=== PATIENT | male | born 1965 | race American Indian/Alaskan Native ===

== ENCOUNTER 2016-06-08 17:15 | Emergency (ER) | payer MEDICAID ==
[2016-06-08] MEDS ORDERED: Furosemide 40 MG/4 ML VIAL IVPUSH ONE ×2 (17:22→18:35)
--- NOTE | 2016-06-08 17:36 | EDM.PDOC ---
<Bandar Daniel - Last Filed: 06/08/16 18:40> ED HPI GI/ABDOMINAL - General Chief Complaint: General Stated Complaint: AMB Time Seen by Provider: 06/08/16 17:36 Source of Information: Reports: Patient History Limitations: Reports: No limitations - History of Present Illness INITIAL COMMENTS - FREE TEXT/NARRATIVE: 51 yo [place] Male c/o abdomen pain for few days. No N&V. PSHx. Bowel as a child Symptom Onset Date: 06/04/16 Symptom Onset Time: 12:00 Timing/Duration: Reports: Day(s): Location: periumbilical Quality: Reports: cramping Severity: moderate Associated Symptoms: Reports: denies other symptoms - Related Data Allergies/ADRs: Allergies Allergy/AdvReac Type Severity Reaction Status Date / Time No Known Allergies Allergy Verified 06/08/16 17:37 Home Meds: Home Meds Lisinopril 40 mg PO DAILY 07/17/14 [History] Omeprazole [Prilosec] 20 mg PO DAILY 07/17/14 [History] Carvedilol [Coreg] 6.25 mg PO BIDMEALS 10/18/15 [History] Furosemide [Lasix] 80 mg PO DAILY 10/18/15 [History] Spironolactone [Aldactone] 25 mg PO DAILY 10/18/15 [History] Past Medical History Cardiovascular History: Reports: Cardiomyopathy, Heart Failure, Hypertension Respiratory History: Reports: SOB Gastrointestinal History: Reports: GERD Genitourinary History: Reports: Other (see below) Other Genitourinary History: liver issues r/t ETOH Musculoskeletal History: Reports: Other (see below) Other Musculoskeletal History: torn left and right upper arm tendon Psychiatric History: Reports: Anxiety - Past Surgical History GI Surgical History: Reports: Colon Other GI Surgeries/Procedures: Patient stated that he had surgery of the colon, removal of parts. Social & Family History - Family History Family Medical History: Noncontributory Cardiac: Reports: Hypertension Other Cardiac Family History: Dad and paternal grandmother have hypertension. Respiratory: Reports: Asthma Other Respiratory Family Hisory: Mom and dad have asthma. Endocrine/Metabolic: Reports: Diabetes, type I Other Endocrine/Metabolic Family History: Dad and paternal grandmother have type I diabetes. - Tobacco Use Smoking Status *Q: Current Every Day Smoker Years of Tobacco use: 8 Packs/Tins Daily: 0.5 Used Tobacco, but Quit: No Second Hand Smoke Exposure: Yes - Caffeine Use Caffeine Use: Reports: Coffee, Soda, Tea - Alcohol Use Days Per Week of Alcohol Use: 2 Number of Drinks Per Day: 10 Total Drinks Per Week: 20 - Recreational Drug Use Recreational Drug Use: Yes Drug Use in Last 12 Months: Yes Recreational Drug Type: Reports: Marijuana/Hashish Recreational Drug Use Frequency: Socially Recreational Drug Last Use: few weeks ago - Living Situation & Occupation Living situation: Reports: with family ED ROS GENERAL - Review of Systems Review Of Systems: See Below Constitutional: Reports: no symptoms HEENT: Reports: No symptoms Respiratory: Reports: No Symptoms Cardiovascular: Reports: No symptoms Endocrine: Reports: no symptoms GI/Abdominal: Reports: Abdominal pain : Reports: no symptoms Musculoskeletal: Reports: no symptoms Skin: Reports: no symptoms Neurological: Reports: No Symptoms Psychiatric: Reports: No symptoms Hematologic/Lymphatic: Reports: no symptoms Immunologic: Reports: no symptoms ED EXAM, GI/ABD - Physical Exam Exam: See Below Exam Limited By: No limitations General Appearance: alert, no apparent distress Ears: normal external exam Nose: normal inspection Throat/Mouth: Normal inspection Head: atraumatic Neck: normal inspection Respiratory/Chest: no respiratory distress Cardiovascular: normal peripheral pulses, regular rate, rhythm GI/Abdominal: normal bowel sounds, soft, tenderness Back Exam: normal inspection Extremities: normal inspection Neurological: alert, oriented, CN II-XII intact Psychiatric: normal affect Skin Exam: Warm Lymphatic: no adenopathy Course - Vital Signs Last Recorded V/S: Last Vital Signs Temp 36.4 C 06/08/16 17:15 Pulse 101 H 06/08/16 17:15 Resp 22 H 06/08/16 17:15 BP 126/99 H 06/08/16 17:15 Pulse Ox 100 06/08/16 17:15 - Orders/Labs/Meds Orders: Active Orders 24 hr Category Date Time Status EKG Documentation Completion [RC] URGENT Care 06/08/16 17:36 Active Labs: Laboratory Tests 06/08/16 06/08/16 06/08/16 Range/Units 17:28 17:28 17:28 WBC 9.1 (5.0-10.0) 10^3/uL RBC 4.42 L (4.6-6.2) 10^6/uL Hgb 13.0 L (14.0-18.0) g/dL Hct 39.5 L (40.0-54.0) % MCV 89.4 (80-100) fL MCH 29.4 (27.0-34.0) pg MCHC 32.9 L (33.0-35.0) g/dL Plt Count 282 (150-450) 10^3/uL Neut % (Auto) 68.0 (42.2-75.2) % Lymph % (Auto) 21.3 (20.5-50.1) % [place] % (Auto) 7.0 (2-8) % Eos % (Auto) 3.1 H (1.0-3.0) % Baso % (Auto) 0.6 (0.0-1.0) % D-Dimer, Quantitative 1250 H (0-400) ng/mL Sodium 142 (135-145) mmol/L Potassium 3.3 L (3.6-5.0) mmol/L Chloride 108 (101-111) mmol/L Carbon Dioxide 24.0 (21.0-31.0) mmol/L Anion Gap 13.3 BUN 12 (7-18) mg/dL Creatinine 0.8 (0.6-1.3) mg/dL Est Cr Clr Drug Dosing TNP Estimated GFR (MDRD) > 60 BUN/Creatinine Ratio 15.00 Glucose 102 (74-105) mg/dL Calcium 8.7 (8.4-10.2) mg/dl Total Bilirubin 2.5 H (0.2-1.0) mg/dL AST 26 (10-42) IU/L ALT 17 (10-60) IU/L Alkaline Phosphatase 72 (42-121) IU/L Troponin I 0.04 H* (0.00-0.02) ng/ml B-Natriuretic Peptide 2850 H (0-100) pg/ml Total Protein 6.8 (6.7-8.2) g/dl Albumin 3.6 (3.2-5.5) g/dl Globulin 3.2 Albumin/Globulin Ratio 1.13 Meds: Medications Discontinued Medications Generic Name Dose Route Start Last Admin Trade Name Freq PRN Reason Stop Dose Admin Enoxaparin Sodium 40 mg 06/08/16 19:31 Lovenox SUBCUT 06/08/16 19:32 ONETIME ONE Furosemide 10 mg 06/08/16 17:22 06/08/16 17:47 Lasix IVPUSH 06/08/16 17:23 10 mg NOW ONE Administration Furosemide Confirm 06/08/16 17:46 06/08/16 18:14 Lasix Administered 06/08/16 17:47 Not Given Dose 20 mg .ROUTE .STK-MED ONE Furosemide 20 mg 06/08/16 18:35 06/08/16 18:46 Lasix IVPUSH 06/08/16 18:36 20 mg NOW ONE Administration Hydromorphone HCl 1 mg 06/08/16 18:36 06/08/16 18:46 Dilaudid IM 06/08/16 18:37 1 mg ONETIME ONE Administration Iopamidol 100 ml 06/08/16 18:00 06/08/16 19:01 Isovue-300 (61%) IVPUSH 06/08/16 18:01 100 ml ONETIME ONE Administration Ondansetron HCl 4 mg 06/08/16 17:39 06/08/16 17:48 Zofran IV 06/08/16 17:40 4 mg ONETIME ONE Administration Ondansetron HCl Confirm 06/08/16 17:41 06/08/16 17:48 Zofran Administered 06/08/16 17:42 Not Given Dose 4 mg .ROUTE .STK-MED ONE Potassium Chloride 20 meq 06/08/16 18:35 06/08/16 18:46 Klor-Con 10 PO 06/08/16 18:36 20 meq ONETIME ONE Administration Departure - Departure Disposition: DC/Tfer to [facility] 02 Clinical Impression: Elevated d-dimer CHF (congestive heart failure) Qualifiers: Congestive heart failure type: unspecified congestive heart failure type Congestive heart failure chronicity: acute Qualified Code(s): I50.9 - Heart failure, unspecified Abdominal pain Qualifiers: Abdominal location: right upper quadrant Qualified Code(s): R10.11 - Right upper quadrant pain Forms: Interfacility Transfer EMTALA Care Plan Goals: Discussed history, examination, lab, CT results and treatments with Dr. Pepe ( Hospitalist with [facility] in [place]). Dr. Pepe accepted the patient for continued evaluation and further management. The patient will be transported by [facility]. <Kwame Self - Last Filed: 06/08/16 19:44> Course - Re-Assessments/Exams Free Text/Narrative Re-Assessment/Exam: 06/08/16 19:39 Patient care was taken over at shift change. The patient's abdominal CT with contrast was negative. The patient has an elevated D-dimer level. Arrangements were made to transfer the patient to [place] for a VQ scan. Departure - Departure Time of Disposition: 19:40 Condition: poor
[2016-06-08] MEDS ORDERED: Ondansetron 4 MG/2 ML SDV IV ONE (17:39)
[2016-06-08] MEDS ORDERED: Ondansetron 4 MG/2 ML SDV ONE (17:41)
[2016-06-08] MEDS ORDERED: Furosemide 20 MG/2 ML VIAL ONE (17:46)
[2016-06-08 17:58] LABS: CHLORIDE,CL 108 mmol/L (101-111); SODIUM,NA 142 mmol/L (135-145)
[2016-06-08] MEDS ORDERED: Iopamidol 612 MG/ML 100 ML Bottle IVPUSH ONE (18:00)
[2016-06-08 18:12] VITALS: BP 126/99
[2016-06-08] MEDS ORDERED: Potassium Chloride 10 MEQ Tab.ER PO ONE (18:35)
[2016-06-08] MEDS ORDERED: HYDROmorphone 1 MG/ML Syringe IM ONE (18:36)
[2016-06-08] MEDS ORDERED: Enoxaparin 40 MG/0.4 ML Syringe SUBCUT ONE (19:31)
--- NOTE | 2016-06-17 09:55 | EKG ---
06/08/2016 - MANNIE MEREDITH - EKG is sinus rhythm with a rate of 99. Normal DE interval. There is a left axis deviation. There are no signs of acute myocardial injury. [facility] /[id number]
== END 2016-06-08 20:02 ==
LOC: DL.ED 17:15
DX: R79.1 Abnormal coagulation profile (principal); I50.9 Heart failure, unspecified; R10.33 Periumbilical pain; I10 Essential (primary) hypertension; I42.9 Cardiomyopathy, unspecified; K21.9 Gastro-esophageal reflux disease without esophagitis; K70.9 Alcoholic liver disease, unspecified; F10.980 Alcohol use, unspecified with alcohol-induced anxiety disorder; F12.90 Cannabis use, unspecified, uncomplicated; Z79.899 Other long term (current) drug therapy
CPT/HCPCS: 36415; 71010; 74177; 80053; 83880; 84484; 85025; 85379; 93005; 96372; 96374; 96375; 99285; A9270; J1170; J1650; J1940; J2405; Q9967

== ENCOUNTER 2016-06-27 14:51 | Emergency (ER) | payer MEDICAID ==
[2016-06-27 15:11] VITALS: BP 114/90
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
--- NOTE | 2016-06-27 15:49 | CR ---
Clinical history: 51-year-old male left chest wall pain. 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 No sign of pathologic skeletal lesion, acute left rib fracture, underlying lung contusion, atelectas is, ipsilateral dependent pleural effusion or left-sided pneumothorax. CONCLUSION: Negative ribs on the left. 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
[2016-06-27] MEDS ORDERED: Morphine 4 MG/ML Syringe IM ONE (16:02)
== END 2016-06-27 16:39 | disposition home or self-care (01) ==
LOC: DL.ED 14:51
DX: S20.212A Contusion of left front wall of thorax, initial encounter (principal); I11.0 Hypertensive heart disease with heart failure; I50.9 Heart failure, unspecified; K21.9 Gastro-esophageal reflux disease without esophagitis; F41.9 Anxiety disorder, unspecified; F17.210 Nicotine dependence, cigarettes, uncomplicated; Z79.899 Other long term (current) drug therapy; W50.1XXA Accidental kick by another person, initial encounter; Y92.239 Unspecified place in hospital as the place of occurrence of the external cause
CPT/HCPCS: 71100; 96372; 99283; J2270

== ENCOUNTER 2016-06-29 08:31 | Emergency (ER) | payer MEDICAID ==
[2016-06-29] MEDS ORDERED: Ketorolac 30 MG/ML SDV IM ONE (08:46)
[2016-06-29] MEDS ORDERED: Promethazine 25 MG Tab PO ONE (08:47)
[2016-06-29] MEDS ORDERED: oxyCODONE 5 MG Tab PO ONE ×2 (08:48→08:57)
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
[2016-06-29 09:01] VITALS: BP 127/83
== END 2016-06-29 09:45 | disposition home or self-care (01) ==
LOC: DL.ED 08:31
DX: S20.212A Contusion of left front wall of thorax, initial encounter (principal); I11.0 Hypertensive heart disease with heart failure; I50.9 Heart failure, unspecified; K21.9 Gastro-esophageal reflux disease without esophagitis; F41.9 Anxiety disorder, unspecified; F17.210 Nicotine dependence, cigarettes, uncomplicated; Z79.899 Other long term (current) drug therapy; W50.1XXA Accidental kick by another person, initial encounter
CPT/HCPCS: 96372; 99283; A9270; J1885

== ENCOUNTER 2016-07-01 05:35 | Emergency (ER) | payer MEDICAID ==
[2016-07-01 05:47] VITALS: BP 120/84
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
[2016-07-01 06:20] LABS: CHLORIDE,CL 106 mmol/L (101-111); SODIUM,NA 141 mmol/L (135-145)
[2016-07-01] MEDS ORDERED: Ketorolac 30 MG/ML SDV IVPUSH ONE (06:21)
[2016-07-01] MEDS ORDERED: Ondansetron 4 MG/2 ML SDV IV ONE (06:23)
[2016-07-01] MEDS ORDERED: Morphine 2 MG/ML Syringe IVPUSH ONE (06:31)
--- NOTE | 2016-07-01 14:13 | EKG ---
07/01/2016 - MANNIE MEREDITH - Twelve-lead EKG shows sinus tachycardia with a heart rate of 105. No significant ST elevation or ST depression noted on this 12-lead EKG. Nonspecific ST-T wave changes noted on lead 2 and 3, and nonspecific ST-T wave changes noted on lead V2, V3. [facility] /[id number]
== END 2016-07-01 07:46 | disposition home or self-care (01) ==
LOC: DL.ED 05:35
DX: S20.212A Contusion of left front wall of thorax, initial encounter (principal); Y04.0XXA Assault by unarmed brawl or fight, initial encounter; I42.9 Cardiomyopathy, unspecified; I50.9 Heart failure, unspecified; I10 Essential (primary) hypertension; K21.9 Gastro-esophageal reflux disease without esophagitis; F41.9 Anxiety disorder, unspecified; F17.200 Nicotine dependence, unspecified, uncomplicated; Z79.899 Other long term (current) drug therapy
CPT/HCPCS: 36415; 71101; 80053; 80305; 81001; 83880; 84484; 85025; 93005; 96374; 96375; 99285; G0480; J2270; J2405

== ENCOUNTER 2016-07-16 08:59 | Emergency (ER) | payer MEDICAID ==
--- NOTE | 2016-07-16 09:00 | EDM.PDOC ---
ED HPI GENERAL MEDICAL PROBLEM - General Chief Complaint: Chest Pain Stated Complaint: IN BY [facility] Time Seen by Provider: 07/16/16 08:59 Source of Information: Reports: Patient, EMS, Old records, RN, RN notes reviewed History Limitations: Reports: No limitations - History of Present Illness INITIAL COMMENTS - FREE TEXT/NARRATIVE: Arrives from home by ambulance with c/o 2-3 days of worsening SOB, cough with clear-white sputum, nausea, and orthopnea. Pt admits to some constant chest pressure for several days.Pt denies fever, chills, abdominal pain. Pt has not been taking his medications this past week. He has been drinking and using methamphetamines, oxycodone, and marijuana. Onset: unknown/unsure Duration: Constant, Getting worse Location: Reports: chest Quality: Reports: Pressure Severity: moderate Improves with: Reports: None Worsens with: Reports: Other (supine position) Associated Symptoms: Reports: no other symptoms Left Chest Pain Score (Numeric/FACES): 7 - Related Data Allergies Allergy/AdvReac Type Severity Reaction Status Date / Time No Known Allergies Allergy Verified 07/16/16 09:07 Home Meds: Home Meds Lisinopril 40 mg PO DAILY 07/17/14 [History] Carvedilol [Coreg] 6.25 mg PO BIDMEALS 10/18/15 [History] Furosemide [Lasix] 80 mg PO DAILY 10/18/15 [History] Spironolactone [Aldactone] 25 mg PO DAILY 10/18/15 [History] Past Medical History HEENT History: Reports: None Cardiovascular History: Reports: Cardiomyopathy, Heart Failure, Hypertension Respiratory History: Reports: SOB Gastrointestinal History: Reports: GERD Genitourinary History: Reports: Other (see below) Other Genitourinary History: liver issues r/t ETOH Musculoskeletal History: Reports: Other (see below) Other Musculoskeletal History: torn left and right upper arm tendon Neurological History: Reports: None Psychiatric History: Reports: Anxiety Endocrine/Metabolic History: Reports: None Dermatologic History: Reports: None - Past Surgical History GI Surgical History: Reports: Colon Other GI Surgeries/Procedures: Patient stated that he had surgery of the colon, removal of parts. Social & Family History - Family History Family Medical History: Noncontributory Cardiac: Reports: Hypertension Other Cardiac Family History: Dad and paternal grandmother have hypertension. Respiratory: Reports: Asthma Other Respiratory Family Hisory: Mom and dad have asthma. Endocrine/Metabolic: Reports: Diabetes, type I Other Endocrine/Metabolic Family History: Dad and paternal grandmother have type I diabetes. - Tobacco Use Smoking Status *Q: Current Every Day Smoker Years of Tobacco use: 9 Packs/Tins Daily: 10 Used Tobacco, but Quit: No Second Hand Smoke Exposure: Yes - Caffeine Use Caffeine Use: Reports: Coffee, Soda, Tea - Alcohol Use Days Per Week of Alcohol Use: 2 Number of Drinks Per Day: 10 Total Drinks Per Week: 20 - Recreational Drug Use Recreational Drug Use: No Drug Use in Last 12 Months: Yes Recreational Drug Type: Reports: Marijuana/Hashish Recreational Drug Use Frequency: Socially Recreational Drug Last Use: few weeks ago - Living Situation & Occupation Living situation: Reports: with family ED ROS GENERAL - Review of Systems Review Of Systems: ROS reveals no pertinent complaints other than HPI. ED EXAM, GENERAL - Physical Exam Exam: See Below Exam Limited By: No limitations General Appearance: alert, WD/WN, no apparent distress, other (chronically ill appearing) Ears: hearing grossly normal Nose: normal inspection, normal mucosa, no blood Throat/Mouth: Normal lips, Normal oropharynx, Normal voice, No airway compromise Head: atraumatic, normocephalic Neck: normal inspection, supple, non-tender, full range of motion. No: lymphadenopathy (L), lymphadenopathy (R) Respiratory/Chest: no respiratory distress, no accessory muscle use, decreased breath sounds, crackles, rales Cardiovascular: regular rate, rhythm, no edema, tachycardia GI/Abdominal: Normal Bowel Sounds, Soft, Non-Tender, No Distention Back Exam: normal inspection Extremities: normal inspection, normal range of motion, non-tender, normal capillary refill, no pedal edema Neurological: alert, oriented, CN II-XII intact, normal cognition, normal gait, no motor/sensory deficits Psychiatric: normal affect, normal mood Skin Exam: Warm, Dry, Intact, Normal color, No rash EKG INTERPRETATION EKG Date: 07/16/16 Time: 09:06 Rhythm: other (SR) Rate (beats/min): 100 [place]: LAD-left axis deviation P-wave: present QRS: other (IVCD, anterior Q-waves) ST-T: other (nonspecific T-wave abnormalities in lat. leads) Comparison: no change Course - Vital Signs Last Recorded V/S: Last Vital Signs Temp 36.4 C 07/16/16 09:00 Pulse 101 H 07/16/16 09:00 Resp 18 07/16/16 09:00 BP 121/105 H 07/16/16 09:00 Pulse Ox 100 07/16/16 09:00 - Orders/Labs/Meds Orders: Active Orders 24 hr Category Date Time Status EKG 12 Lead [EKG Documentation Completion] [] STAT Care 07/16/16 09:00 Active Peripheral IV Care [] . DIRECTED Care 07/16/16 09:02 Active CULTURE BLOOD [BC] Stat Lab 07/16/16 09:10 Received CULTURE BLOOD [BC] Stat Lab 07/16/16 09:15 Received Sodium Chloride 0.9% [Saline Flush] Med 07/16/16 09:00 Active 10 ml FLUSH ASDIRECTED PRN Blood Culture x2 Reflex Set [OM.PC] Stat Ot 07/16/16 09:01 Ordered Peripheral IV Insertion Adult [OM.PC] Stat Ot 07/16/16 09:00 Ordered Medication Orders Sodium Chloride (Saline Flush) 10 ml FLUSH ASDIRECTED PRN PRN Reason: Keep Vein Open Last Admin: 07/16/16 09:52 Dose: 10 ml Admin: 07/16/16 09:18 Dose: 10 ml Labs: Laboratory Tests 07/16/16 07/16/16 07/16/16 Range/Units 09:10 09:10 09:10 WBC 6.9 (5.0-10.0) 10^3/uL RBC 4.51 L (4.6-6.2) 10^6/uL Hgb 13.7 L (14.0-18.0) g/dL Hct 41.2 (40.0-54.0) % MCV 91.4 (80-100) fL MCH 30.4 (27.0-34.0) pg MCHC 33.3 (33.0-35.0) g/dL Plt Count 235 (150-450) 10^3/uL Neut % (Auto) 75.4 H (42.2-75.2) % Lymph % (Auto) 15.9 L (20.5-50.1) % [place] % (Auto) 7.4 (2-8) % Eos % (Auto) 0.7 L (1.0-3.0) % Baso % (Auto) 0.6 (0.0-1.0) % Sodium 138 (135-145) mmol/L Potassium 3.6 (3.6-5.0) mmol/L Chloride 106 (101-111) mmol/L Carbon Dioxide 23.0 (21.0-31.0) mmol/L Anion Gap 12.6 BUN 6 L (7-18) mg/dL Creatinine 0.6 (0.6-1.3) mg/dL Est Cr Clr Drug Dosing TNP Estimated GFR (MDRD) > 60 BUN/Creatinine Ratio 10.00 Glucose 108 H (74-105) mg/dL Lactic Acid 2.3 H (0.5-2.2) mmol/L Calcium 8.7 (8.4-10.2) mg/dl Total Bilirubin 1.2 H (0.2-1.0) mg/dL AST 35 (10-42) IU/L ALT 19 (10-60) IU/L Alkaline Phosphatase 86 (42-121) IU/L Troponin I 0.05 H* (0.00-0.02) ng/ml B-Natriuretic Peptide 3330 H (0-100) pg/ml Total Protein 7.3 (6.7-8.2) g/dl Albumin 3.5 (3.2-5.5) g/dl Globulin 3.8 Albumin/Globulin Ratio 0.92 Amylase 33 (28-100) U/L Lipase 19 L (22-51) U/L Urine Color (YELLOW) Urine Appearance (CLEAR) Urine pH (5.0-9.0) Ur Specific [place] (1.005-1.030) Urine Protein (NEGATIVE) Urine Glucose (UA) (NEGATIVE) Urine Ketones (NEGATIVE) Urine Occult Blood (NEGATIVE) Urine Nitrite (NEGATIVE) Urine Bilirubin (NEGATIVE) Urine Urobilinogen (0.2-1.0) mg/dL Ur Leukocyte Esterase (NEGATIVE) Urine RBC /HPF Urine WBC (0-5/HPF) /HPF Ur Epithelial Cells /HPF Urine Mucus /LPF Urine Opiates Screen (NEGATIVE) Ur Oxycodone Screen (NEGATIVE) Urine Methadone Screen (NEGATIVE) Ur Barbiturates Screen (NEGATIVE) U Tricyclic Antidepress (NEGATIVE) Ur Phencyclidine Scrn (NEGATIVE) Ur Amphetamine Screen (NEGATIVE) U Methamphetamines Scrn (NEGATIVE) Urine MDMA Screen (NEGATIVE) U Benzodiazepines Scrn (NEGATIVE) Urine Cocaine Screen (NEGATIVE) U Marijuana (THC) Screen (NEGATIVE) Ethyl Alcohol 39 mg/dL 07/16/16 07/16/16 Range/Units 09:25 09:25 WBC (5.0-10.0) 10^3/uL RBC (4.6-6.2) 10^6/uL Hgb (14.0-18.0) g/dL Hct (40.0-54.0) % MCV (80-100) fL MCH (27.0-34.0) pg MCHC (33.0-35.0) g/dL Plt Count (150-450) 10^3/uL Neut % (Auto) (42.2-75.2) % Lymph % (Auto) (20.5-50.1) % [place] % (Auto) (2-8) % Eos % (Auto) (1.0-3.0) % Baso % (Auto) (0.0-1.0) % Sodium (135-145) mmol/L Potassium (3.6-5.0) mmol/L Chloride (101-111) mmol/L Carbon Dioxide (21.0-31.0) mmol/L Anion Gap BUN (7-18) mg/dL Creatinine (0.6-1.3) mg/dL Est Cr Clr Drug Dosing Estimated GFR (MDRD) BUN/Creatinine Ratio Glucose (74-105) mg/dL Lactic Acid (0.5-2.2) mmol/L Calcium (8.4-10.2) mg/dl Total Bilirubin (0.2-1.0) mg/dL AST (10-42) IU/L ALT (10-60) IU/L Alkaline Phosphatase (42-121) IU/L Troponin I (0.00-0.02) ng/ml B-Natriuretic Peptide (0-100) pg/ml Total Protein (6.7-8.2) g/dl Albumin (3.2-5.5) g/dl Globulin Albumin/Globulin Ratio Amylase (28-100) U/L Lipase (22-51) U/L Urine Color [place] (YELLOW) Urine Appearance Clear (CLEAR) Urine pH 6.0 (5.0-9.0) Ur Specific [place] 1.015 (1.005-1.030) Urine Protein 100 H (NEGATIVE) Urine Glucose (UA) Negative (NEGATIVE) Urine Ketones Negative (NEGATIVE) Urine Occult Blood Moderate H (NEGATIVE) Urine Nitrite Negative (NEGATIVE) Urine Bilirubin Negative (NEGATIVE) Urine Urobilinogen 1.0 (0.2-1.0) mg/dL Ur Leukocyte Esterase Negative (NEGATIVE) Urine RBC 0-5 /HPF Urine WBC Not seen (0-5/HPF) /HPF Ur Epithelial Cells Rare /HPF Urine Mucus Rare /LPF Urine Opiates Screen Negative (NEGATIVE) Ur Oxycodone Screen Positive H (NEGATIVE) Urine Methadone Screen Negative (NEGATIVE) Ur Barbiturates Screen Negative (NEGATIVE) U Tricyclic Antidepress Negative (NEGATIVE) Ur Phencyclidine Scrn Negative (NEGATIVE) Ur Amphetamine Screen Negative (NEGATIVE) U Methamphetamines Scrn Positive H (NEGATIVE) Urine MDMA Screen Negative (NEGATIVE) U Benzodiazepines Scrn Negative (NEGATIVE) Urine Cocaine Screen Negative (NEGATIVE) U Marijuana (THC) Screen Positive H (NEGATIVE) Ethyl Alcohol mg/dL Meds: Medications Generic Name Dose Route Start Last Admin Trade Name Freq PRN Reason Stop Dose Admin Sodium Chloride 10 ml 07/16/16 09:00 07/16/16 09:52 Saline Flush FLUSH 10 ml ASDIRECTED PRN Administration Keep Vein Open Discontinued Medications Generic Name Dose Route Start Last Admin Trade Name Freq PRN Reason Stop Dose Admin Furosemide 40 mg 07/16/16 09:45 07/16/16 09:52 Lasix IVPUSH 07/16/16 09:46 40 mg NOW ONE Administration Ondansetron HCl 4 mg 07/16/16 09:02 07/16/16 09:18 Zofran IV 07/16/16 09:03 4 mg ONETIME ONE Administration - Radiology Interpretation Free Text/Narrative:: CXR: abnormal but unchanged from prior studies, CHF, cardiomegaly per Rad. report. Departure - Departure Time of Disposition: 10:08 Disposition: DC/Tfer to Acute Hospital 02 Reason for Transfer *Q: Primary PCI Indicated Condition: serious Clinical Impression: Noncompliance with medication regimen, Methamphetamine abuse Acute exacerbation of congestive heart failure Qualifiers: Congestive heart failure type: unspecified congestive heart failure type Qualified Code(s): I50.9 - Heart failure, unspecified Polysubstance dependence including opioid type drug with complication, episodic abuse Qualifiers: Complication of substance-induced condition: with unspecified complication Qualified Code(s): F11.229 - Opioid dependence with intoxication, unspecified Forms: ED Department Discharge, Interfacility Transfer EMTALA - My Orders Last 24 Hours: My Active Orders 07/16/16 09:00 EKG 12 Lead [EKG Documentation Completion] [RC] STAT Sodium Chloride 0.9% [Saline Flush] 10 ml FLUSH ASDIRECTED PRN Peripheral IV Insertion Adult [OM.PC] Stat 07/16/16 09:01 Blood Culture x2 Reflex Set [OM.PC] Stat 07/16/16 09:02 Peripheral IV Care [RC] . DIRECTED 07/16/16 09:10 CULTURE BLOOD [BC] Stat 07/16/16 09:15 CULTURE BLOOD [BC] Stat - Assessment/Plan Last 24 Hours: My Active Orders 07/16/16 09:00 EKG 12 Lead [EKG Documentation Completion] [RC] STAT Sodium Chloride 0.9% [Saline Flush] 10 ml FLUSH ASDIRECTED PRN Peripheral IV Insertion Adult [OM.PC] Stat 07/16/16 09:01 Blood Culture x2 Reflex Set [OM.PC] Stat 07/16/16 09:02 Peripheral IV Care [RC] . DIRECTED 07/16/16 09:10 CULTURE BLOOD [BC] Stat 07/16/16 09:15 CULTURE BLOOD [BC] Stat
[2016-07-16] MEDS ORDERED: Ondansetron 4 MG/2 ML SDV IV ONE (09:02)
[2016-07-16] MEDS: Sodium Chloride 0.9% 10 ML Syringe FLUSH PRN ×2 (09:18→09:52)
[2016-07-16 09:43] LABS: CHLORIDE,CL 106 mmol/L (101-111); SODIUM,NA 138 mmol/L (135-145)
[2016-07-16] MEDS ORDERED: Furosemide 40 MG/4 ML VIAL IVPUSH ONE (09:45)
--- NOTE | 2016-07-16 09:58 | CR ---
CLINICAL HISTORY: 51-year-old male with chest pain, cough and vomiting. INTERPRETATION: PA lateral chest films abnormal. Chronically enlarged cardiac silhouette (Cardiomyopathy and/or pericardial effusion) with generalize d pulmonary venous congestion/cephalization. Partial silhouetting of the right heart border chronic and unchanged since 03 October 2015. No new signs of alveolar edema, dependent effusion, lung mass, focal lobar pneumonia or atelectasis/ collapse. No pneumothorax. CONCLUSION: Abnormal but generally unchanged except for technique when compared to September 2015 exam.
[2016-07-16 10:06] VITALS: BP 118/102
--- NOTE | 2016-07-21 12:06 | EKG ---
07/16/2016 MANNIE SHANKS I reviewed the EKG and agree with the machine reading. [facility] /[id number]
== END 2016-07-16 10:42 ==
LOC: DL.ED 08:59
DX: I11.0 Hypertensive heart disease with heart failure (principal); I50.9 Heart failure, unspecified; F11.229 Opioid dependence with intoxication, unspecified; K21.9 Gastro-esophageal reflux disease without esophagitis; F41.9 Anxiety disorder, unspecified; F17.210 Nicotine dependence, cigarettes, uncomplicated; Z79.899 Other long term (current) drug therapy
CPT/HCPCS: 36415; 71020; 80053; 80305; 81001; 82150; 83605; 83690; 83880; 84484; 85025; 87040; 93005; 96374; 96375; 99285; G0480; J1940; J2405; J7050

== ENCOUNTER 2016-07-29 08:19 | Emergency (ER) | payer MEDICAID ==
--- NOTE | 2016-07-29 08:35 | EDM.PDOC ---
ED HPI GENERAL MEDICAL PROBLEM - General Chief Complaint: Chest Pain Stated Complaint: IN BY AMBULANCE Time Seen by Provider: 07/29/16 08:25 Source of Information: Reports: Patient History Limitations: Reports: No Limitations - History of Present Illness INITIAL COMMENTS - FREE TEXT/NARRATIVE: This 51 yo male patient reports to the ED with chest pain (started this morning ) and shortness of breath (started 4 days ago). The patient currently reports his chest pain is a 5/10, but his shortness of breath is much worse. The patient reports he has not been drinking or doing any meth in the past week. The patient reports he has been attempting to follow-up with cardiology, but had an initial appointment last Thursday to arrange an appointment with a supervisor wet room. EMS had given the patient Aspirin and Nitro prior to the patient arrival in the ED. The patient was seen in this ED on 07/16/16 with similar symptoms. During that visit, the patient had an elevated Troponin level and was transferred to [place]. The patient has a history of CHF, hypertension, Meth use and ETOH use. 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, IV/IO, Nitroglycerin, Oxygen Chest Pain Score (Numeric/FACES): 5 - Related Data Allergies Allergy/AdvReac Type Severity Reaction Status Date / Time No Known Allergies Allergy Verified 07/29/16 08:23 Home Meds: Home Meds Lisinopril 40 mg PO DAILY 07/17/14 [History] Carvedilol [Coreg] 6.25 mg PO BIDMEALS 10/18/15 [History] Furosemide [Lasix] 80 mg PO DAILY 10/18/15 [History] Spironolactone [Aldactone] 25 mg PO DAILY 10/18/15 [History] Past Medical History HEENT History: Reports: None Cardiovascular History: Reports: Cardiomyopathy, Heart Failure, Hypertension Respiratory History: Reports: SOB Gastrointestinal History: Reports: GERD Genitourinary History: Reports: Other (See Below) Other Genitourinary History: liver issues r/t ETOH Musculoskeletal History: Reports: Other (See Below) Other Musculoskeletal History: torn left and right upper arm tendon Neurological History: Reports: None Psychiatric History: Reports: Anxiety Endocrine/Metabolic History: Reports: None Hematologic History: Reports: None Immunologic History: Reports: None Oncologic (Cancer) History: Reports: None Dermatologic History: Reports: None - Infectious Disease History Infectious Disease History: Reports: None - Past Surgical History Cardiovascular Surgical History: Reports: Percutaneous Transluminal Angioplasty Social & Family History - Family History Family Medical History: Noncontributory Cardiac: Reports: Hypertension Other Cardiac Family History: Dad and paternal grandmother have hypertension. Respiratory: Reports: Asthma Other Respiratory Family Hisory: Mom and dad have asthma. Endocrine/Metabolic: Reports: Diabetes, Type I Other Endocrine/Metabolic Family History: Dad and paternal grandmother have type I diabetes. - Tobacco Use Smoking Status *Q: Current Every Day Smoker Years of Tobacco use: 9 Packs/Tins Daily: 10 Used Tobacco, but Quit: No Second Hand Smoke Exposure: Yes - Caffeine Use Caffeine Use: Reports: Coffee, Soda, Tea - Alcohol Use Days Per Week of Alcohol Use: 2 Number of Drinks Per Day: 10 Total Drinks Per Week: 20 - Recreational Drug Use Recreational Drug Use: No Drug Use in Last 12 Months: Yes Recreational Drug Type: Reports: Marijuana/Hashish Recreational Drug Use Frequency: Socially Recreational Drug Last Use: few weeks ago - Living Situation & Occupation Living situation: Reports: with Family ED ROS GENERAL - Review of Systems Review Of Systems: ROS reveals no pertinent complaints other than HPI. ED EXAM, GENERAL - Physical Exam Exam: See Below Exam Limited By: No Limitations General Appearance: Alert, WD/WN, Mild Distress Eye Exam: Bilateral Eye: EOMI, Normal Inspection, PERRL Ears: Normal External Exam, Normal Canal, Hearing Grossly Normal, Normal TMs Nose: Normal Inspection, Normal Mucosa, No Blood Throat/Mouth: Normal Inspection, Normal Lips, Normal Teeth, Normal Gums, Normal Oropharynx, Normal Voice, No Airway Compromise Head: Atraumatic, Normocephalic Neck: Normal Inspection, Supple, Non-Tender, Full Range of Motion Respiratory/Chest: No Respiratory Distress, Lungs Clear, Normal Breath Sounds, No Accessory Muscle Use, Chest Non-Tender Cardiovascular: Normal Peripheral Pulses, Regular Rate, Rhythm, No Edema, No Gallop, No JVD, No Murmur, No Rub GI/Abdominal: Normal Bowel Sounds, Soft, Non-Tender, No Organomegaly, No Distention, No Abnormal Bruit, No Mass (Male) Exam: Deferred Rectal (Males) Exam: Deferred Back Exam: Normal Inspection, Full Range of Motion, NT Extremities: Normal Inspection, Normal Range of Motion, Non-Tender, Normal Capillary Refill, No Pedal Edema Neurological: Alert, Oriented, CN II-XII Intact, Normal Cognition, Normal Gait, Normal Reflexes, No Motor/Sensory Deficits Psychiatric: Normal Affect, Normal Mood Skin Exam: Warm, Dry, Intact, Normal Color, No Rash Lymphatic: No Adenopathy Course - Vital Signs Last Recorded V/S: Last Vital Signs Temp 37.1 C 07/29/16 11:00 Pulse 81 07/29/16 11:00 Resp 25 H 07/29/16 11:00 BP 103/71 07/29/16 11:00 Pulse Ox 100 07/29/16 11:00 - Orders/Labs/Meds Orders: Active Orders 24 hr Category Date Time Status EKG Documentation Completion [RC] ROUTINE Care 07/29/16 12:30 Active EKG Documentation Completion [RC] URGENT Care 07/29/16 08:15 Active Regular Diet [DIET] Diet 07/29/16 Breakfast Active Labs: Laboratory Tests 07/29/16 07/29/16 07/29/16 Range/Units 08:25 08:25 08:25 WBC 9.1 (5.0-10.0) 10^3/uL RBC 4.67 (4.6-6.2) 10^6/uL Hgb 13.9 L (14.0-18.0) g/dL Hct 43.7 (40.0-54.0) % MCV 93.6 (80-100) fL MCH 29.8 (27.0-34.0) pg MCHC 31.8 L (33.0-35.0) g/dL Plt Count 291 (150-450) 10^3/uL Neut % (Auto) 72.5 (42.2-75.2) % Lymph % (Auto) 14.5 L (20.5-50.1) % [place] % (Auto) 7.4 (2-8) % Eos % (Auto) 4.8 H (1.0-3.0) % Baso % (Auto) 0.8 (0.0-1.0) % Sodium 140 (135-145) mmol/L Potassium 4.6 (3.6-5.0) mmol/L Chloride 108 (101-111) mmol/L Carbon Dioxide 27.0 (21.0-31.0) mmol/L Anion Gap 9.6 BUN 22 H (7-18) mg/dL Creatinine 0.7 (0.6-1.3) mg/dL Est Cr Clr Drug Dosing 127.65 mL/min Estimated GFR (MDRD) > 60 BUN/Creatinine Ratio 31.42 Glucose 108 H (74-105) mg/dL Calcium 8.8 (8.4-10.2) mg/dl Total Bilirubin 0.7 (0.2-1.0) mg/dL AST 19 (10-42) IU/L ALT 13 (10-60) IU/L Alkaline Phosphatase 80 (42-121) IU/L Troponin I 0.03 H* (0.00-0.02) ng/ml B-Natriuretic Peptide 749 H (0-100) pg/ml Total Protein 7.2 (6.7-8.2) g/dl Albumin 3.4 (3.2-5.5) g/dl Globulin 3.8 Albumin/Globulin Ratio 0.89 Urine Color (YELLOW) Urine Appearance (CLEAR) Urine pH (5.0-9.0) Ur Specific [place] (1.005-1.030) Urine Protein (NEGATIVE) Urine Glucose (UA) (NEGATIVE) Urine Ketones (NEGATIVE) Urine Occult Blood (NEGATIVE) Urine Nitrite (NEGATIVE) Urine Bilirubin (NEGATIVE) Urine Urobilinogen (0.2-1.0) mg/dL Ur Leukocyte Esterase (NEGATIVE) Urine RBC /HPF Urine WBC (0-5/HPF) /HPF Urine Mucus /LPF Urine Opiates Screen (NEGATIVE) Ur Oxycodone Screen (NEGATIVE) Urine Methadone Screen (NEGATIVE) Ur Barbiturates Screen (NEGATIVE) U Tricyclic Antidepress (NEGATIVE) Ur Phencyclidine Scrn (NEGATIVE) Ur Amphetamine Screen (NEGATIVE) U Methamphetamines Scrn (NEGATIVE) Urine MDMA Screen (NEGATIVE) U Benzodiazepines Scrn (NEGATIVE) Urine Cocaine Screen (NEGATIVE) U Marijuana (THC) Screen (NEGATIVE) 07/29/16 07/29/16 07/29/16 Range/Units 08:37 08:37 12:20 WBC (5.0-10.0) 10^3/uL RBC (4.6-6.2) 10^6/uL Hgb (14.0-18.0) g/dL Hct (40.0-54.0) % MCV (80-100) fL MCH (27.0-34.0) pg MCHC (33.0-35.0) g/dL Plt Count (150-450) 10^3/uL Neut % (Auto) (42.2-75.2) % Lymph % (Auto) (20.5-50.1) % [place] % (Auto) (2-8) % Eos % (Auto) (1.0-3.0) % Baso % (Auto) (0.0-1.0) % Sodium (135-145) mmol/L Potassium (3.6-5.0) mmol/L Chloride (101-111) mmol/L Carbon Dioxide (21.0-31.0) mmol/L Anion Gap BUN (7-18) mg/dL Creatinine (0.6-1.3) mg/dL Est Cr Clr Drug Dosing mL/min Estimated GFR (MDRD) BUN/Creatinine Ratio Glucose (74-105) mg/dL Calcium (8.4-10.2) mg/dl Total Bilirubin (0.2-1.0) mg/dL AST (10-42) IU/L ALT (10-60) IU/L Alkaline Phosphatase (42-121) IU/L Troponin I 0.03 H* (0.00-0.02) ng/ml B-Natriuretic Peptide (0-100) pg/ml Total Protein (6.7-8.2) g/dl Albumin (3.2-5.5) g/dl Globulin Albumin/Globulin Ratio Urine Color Yellow (YELLOW) Urine Appearance Slightly cloudy (CLEAR) Urine pH 5.5 (5.0-9.0) Ur Specific [place] 1.015 (1.005-1.030) Urine Protein Negative (NEGATIVE) Urine Glucose (UA) Negative (NEGATIVE) Urine Ketones Negative (NEGATIVE) Urine Occult Blood Trace-lysed H (NEGATIVE) Urine Nitrite Negative (NEGATIVE) Urine Bilirubin Negative (NEGATIVE) Urine Urobilinogen 0.2 (0.2-1.0) mg/dL Ur Leukocyte Esterase Negative (NEGATIVE) Urine RBC 0-5 /HPF Urine WBC 0-5 (0-5/HPF) /HPF Urine Mucus Few H /LPF Urine Opiates Screen Negative (NEGATIVE) Ur Oxycodone Screen Positive H (NEGATIVE) Urine Methadone Screen Negative (NEGATIVE) Ur Barbiturates Screen Negative (NEGATIVE) U Tricyclic Antidepress Negative (NEGATIVE) Ur Phencyclidine Scrn Negative (NEGATIVE) Ur Amphetamine Screen Negative (NEGATIVE) U Methamphetamines Scrn Negative (NEGATIVE) Urine MDMA Screen Negative (NEGATIVE) U Benzodiazepines Scrn Negative (NEGATIVE) Urine Cocaine Screen Negative (NEGATIVE) U Marijuana (THC) Screen Negative (NEGATIVE) Meds: Medications Discontinued Medications Generic Name Dose Route Start Last Admin Trade Name Walter PRN Reason Stop Dose Admin Furosemide 20 mg 07/29/16 09:01 07/29/16 09:05 Lasix IVPUSH 07/29/16 09:02 20 mg ONETIME ONE Administration - Re-Assessments/Exams Free Text/Narrative Re-Assessment/Exam: 07/29/16 09:57 The patient was advised of the initial lab, EKG and x-ray results. The patient was placed on extended ED stay for a repeat Troponin and EKG scheduled at 1225. 07/29/16 13:05 The patient asked for pain medications for his sore left shoulder and something to help him relax. The patient was advised to visit his primary care facility for any additional medications. Departure - Departure Time of Disposition: 13:02 Disposition: Home, Self-Care 01 Condition: fair Clinical Impression: Non-cardiac chest pain, Shortness of breath CHF (congestive heart failure) Qualifiers: Congestive heart failure type: unspecified congestive heart failure type Congestive heart failure chronicity: acute Qualified Code(s): I50.9 - Heart failure, unspecified Instructions: Nonspecific Chest Pain, [id number], Heart Failure, [id number] , Shortness of Breath, [id number] Forms: ED Department Discharge Care Plan Goals: The patient was advised of the examination, lab, EKG, x-ray, repeat lab and repeat EKG results during the visit. The patient was encouraged to continue to take his medications as directed. If the patient has any additional symptoms or concerns, the patient should follow-up with his primary care provider or return to the emergency department. - My Orders Last 24 Hours: My Active Orders 07/29/16 08:15 EKG Documentation Completion [RC] URGENT 07/29/16 12:30 EKG Documentation Completion [RC] ROUTINE 07/29/16 Breakfast Regular Diet [DIET] - Assessment/Plan Last 24 Hours: My Active Orders 07/29/16 08:15 EKG Documentation Completion [RC] URGENT 07/29/16 12:30 EKG Documentation Completion [RC] ROUTINE 07/29/16 Breakfast Regular Diet [DIET]
[2016-07-29 08:50] LABS: CHLORIDE,CL 108 mmol/L (101-111); SODIUM,NA 140 mmol/L (135-145)
[2016-07-29] MEDS ORDERED: Furosemide 20 MG/2 ML VIAL IVPUSH ONE (09:01)
--- NOTE | 2016-07-29 10:49 | CR ---
CLINICAL HISTORY: A 51-year-old male with chest pain. INTERPRETATION: Chronically enlarged cardiac silhouette consistent with cardiomyopathy or pericardia l effusion unchanged since 16 Jul 2016 exam. Pulmonary vascularity today less congested (normal) and no new signs of alveolar edema or dependent effusion. Some old middle lobe atelectasis or fibrosis partially silhouetting the right heart border. No new l estrada mass, hilar lymphadenopathy or focal lobar pneumonia. No atelectasis/collapse. No pneumothorax.
[2016-07-29 11:35] VITALS: BP 103/71
--- NOTE | 2016-07-30 11:07 | EKG ---
07/29/2016 - MANNIE MEREDITH - A 12-lead EKG shows normal sinus rhythm with heart rate of 86. Nonspecific ST-T wave changes noted on lead aVL and also on lead 2. No significant ST elevation or ST depression noted on this 12-lead EKG. Possible left bundle branch block and left atrial enlargement noted. [facility] /[id number]
--- NOTE | 2016-07-30 13:14 | EKG ---
07/29/2016- MANNIE MEREDITH - TIME: 12:16. A 12-lead EKG shows normal sinus rhythm with heart rate of 88. No significant ST elevation or ST depression noted on this 12-lead EKG. Again, nonspecific ST- T wave changes noted on lead V4, V5. [facility] /[id number]
== END 2016-07-29 13:00 | disposition home or self-care (01) ==
LOC: DL.ED 08:19
DX: I11.0 Hypertensive heart disease with heart failure (principal); I50.9 Heart failure, unspecified; K21.9 Gastro-esophageal reflux disease without esophagitis; F41.9 Anxiety disorder, unspecified; F17.210 Nicotine dependence, cigarettes, uncomplicated; Z79.899 Other long term (current) drug therapy; Z98.84 Bariatric surgery status; Z90.49 Acquired absence of other specified parts of digestive tract
CPT/HCPCS: 36415; 71010; 80053; 80305; 81001; 83880; 84484; 85025; 93005; 96374; 99285; J1940

== ENCOUNTER 2016-08-14 09:02 | Emergency (ER) | payer MEDICAID ==
[2016-08-14] MEDS ORDERED: Sodium Chloride 0.9% 10 ML Syringe FLUSH PRN (09:13)
--- NOTE | 2016-08-14 09:13 | EDM.PDOC ---
ED HPI GENERAL MEDICAL PROBLEM - General Chief Complaint: Chest Pain Stated Complaint: IN BY AMBULANCE Time Seen by Provider: 08/14/16 09:12 Source of Information: Reports: Patient, EMS, Old Records, RN, RN Notes Reviewed History Limitations: Reports: No Limitations - History of Present Illness INITIAL COMMENTS - FREE TEXT/NARRATIVE: Arrives from home by [facility] with c/o "woke with chest pain, nausea, and vomiting" . Pt states he has been drinking beer and a pint of whiskey yesterday, and has been smoking marijuana and methamphetamine over the past 3 days. He could not take any aspirin this morning because of the vomiting. Denies radiating pain or shortness of breath. Old records reveal pt had an ECHO on 07/16/16 with an EF of 24.1%. Onset: Today Duration: Constant Location: Reports: Chest, Abdomen (epigastric) Quality: Reports: Ache, Burning Severity: Moderate Improves with: Reports: None Worsens with: Reports: None Associated Symptoms: Reports: No Other Symptoms Left Chest Pain Score (Numeric/FACES): 7 - Related Data Allergies Allergy/AdvReac Type Severity Reaction Status Date / Time No Known Allergies Allergy Verified 08/14/16 09:02 Home Meds: Home Meds Lisinopril 40 mg PO DAILY 07/17/14 [History] Carvedilol [Coreg] 6.25 mg PO BIDMEALS 10/18/15 [History] Furosemide [Lasix] 80 mg PO DAILY 10/18/15 [History] Spironolactone [Aldactone] 25 mg PO DAILY 10/18/15 [History] Past Medical History HEENT History: Reports: None Cardiovascular History: Reports: Cardiomyopathy, Heart Failure, Hypertension Respiratory History: Reports: SOB Gastrointestinal History: Reports: GERD Genitourinary History: Reports: Other (See Below) Other Genitourinary History: liver issues r/t ETOH Musculoskeletal History: Reports: Other (See Below) Other Musculoskeletal History: torn left and right upper arm tendon Neurological History: Reports: None Psychiatric History: Reports: Anxiety Endocrine/Metabolic History: Reports: None Hematologic History: Reports: None Immunologic History: Reports: None Oncologic (Cancer) History: Reports: None Dermatologic History: Reports: None - Infectious Disease History Infectious Disease History: Reports: None - Past Surgical History Cardiovascular Surgical History: Reports: Percutaneous Transluminal Angioplasty Social & Family History - Family History Family Medical History: Noncontributory Cardiac: Reports: Hypertension Other Cardiac Family History: Dad and paternal grandmother have hypertension. Respiratory: Reports: Asthma Other Respiratory Family Hisory: Mom and dad have asthma. Endocrine/Metabolic: Reports: Diabetes, Type I Other Endocrine/Metabolic Family History: Dad and paternal grandmother have type I diabetes. - Tobacco Use Smoking Status *Q: Current Every Day Smoker Years of Tobacco use: 10 Packs/Tins Daily: 0.5 Used Tobacco, but Quit: No Second Hand Smoke Exposure: Yes - Caffeine Use Caffeine Use: Reports: Coffee, Soda, Tea - Alcohol Use Alcohol Use History: Yes Days Per Week of Alcohol Use: 3 Number of Drinks Per Day: 12 Total Drinks Per Week: 36 Alcohol Use Frequency: Binges - Recreational Drug Use Recreational Drug Use: Yes Drug Use in Last 12 Months: Yes Recreational Drug Type: Reports: Methamphetamine, Oxycodone Recreational Drug Use Frequency: Binges Recreational Drug Last Use: yesterday Recreational Drug Route: Reports: Inhaled - Living Situation & Occupation Living situation: Reports: with Family ED ROS GENERAL - Review of Systems Review Of Systems: ROS reveals no pertinent complaints other than HPI. ED EXAM, GENERAL - Physical Exam Exam: See Below Exam Limited By: No Limitations General Appearance: Alert, WD/WN, No Apparent Distress Eye Exam: Bilateral Eye: Normal Inspection Ears: Normal External Exam Nose: Normal Inspection, Normal Mucosa, No Blood Throat/Mouth: Normal Inspection, Normal Lips, Normal Oropharynx, Normal Voice, No Airway Compromise Head: Atraumatic, Normocephalic Neck: Normal Inspection, Supple, Non-Tender, Full Range of Motion. No: Lymphadenopathy (L), Lymphadenopathy (R) Respiratory/Chest: No Respiratory Distress, Lungs Clear, Normal Breath Sounds, No Accessory Muscle Use, Chest Non-Tender Cardiovascular: Normal Peripheral Pulses, Regular Rate, Rhythm, No Edema, No Gallop, No JVD, No Murmur, No Rub GI/Abdominal: Normal Bowel Sounds, Soft, No Distention, No Abnormal Bruit, Pelvis Stable, Tender (epigastric). No: Guarding, Rigid, Rebound (Male) Exam: Deferred Rectal (Males) Exam: Deferred Back Exam: Normal Inspection, Full Range of Motion. No: CVA Tenderness (L), CVA Tenderness (R) Extremities: Normal Inspection, Normal Range of Motion, Non-Tender, Normal Capillary Refill, No Pedal Edema Neurological: Alert, Oriented, CN II-XII Intact, Normal Cognition, Normal Reflexes, No Motor/Sensory Deficits Psychiatric: Normal Affect, Normal Mood Skin Exam: Warm, Dry, Intact, Normal Color, No Rash EKG INTERPRETATION EKG Date: 08/14/16 Time: 09:14 Rhythm: other (SR) Rate (beats/min): 98 [place]: normal P-wave: present QRS: LBBB (chronic, Left atrial enlargement) ST-T: normal QT: normal Comparison: no change EKG Interpretation Comments: No acute ischemic changes. Course - Vital Signs Last Recorded V/S: Last Vital Signs Temp 36.1 C 08/14/16 09:05 Pulse 94 08/14/16 10:10 Resp 16 08/14/16 10:10 BP 131/94 H 08/14/16 10:10 Pulse Ox 97 08/14/16 10:10 - Orders/Labs/Meds Orders: Active Orders 24 hr Category Date Time Status EKG 12 Lead [EKG Documentation Completion] [] STAT Care 08/14/16 09:13 Active Peripheral IV Care [RC] . DIRECTED Care 08/14/16 09:13 Active Sodium Chloride 0.9% [Saline Flush] Med 08/14/16 09:13 Active 10 ml FLUSH ASDIRECTED PRN Peripheral IV Insertion Adult [OM.PC] Stat Oth 08/14/16 09:13 Ordered Medication Orders Sodium Chloride (Saline Flush) 10 ml FLUSH ASDIRECTED PRN PRN Reason: Keep Vein Open Last Admin: 08/14/16 09:25 Dose: 10 ml Labs: Laboratory Tests 08/14/16 08/14/16 08/14/16 Range/Units 09:20 09:20 09:20 WBC 6.2 (5.0-10.0) 10^3/uL RBC 4.70 (4.6-6.2) 10^6/uL Hgb 14.1 (14.0-18.0) g/dL Hct 42.6 (40.0-54.0) % MCV 90.6 (80-100) fL MCH 30.0 (27.0-34.0) pg MCHC 33.1 (33.0-35.0) g/dL Plt Count 257 (150-450) 10^3/uL Neut % (Auto) 69.7 (42.2-75.2) % Lymph % (Auto) 19.6 L (20.5-50.1) % [place] % (Auto) 6.4 (2-8) % Eos % (Auto) 3.7 H (1.0-3.0) % Baso % (Auto) 0.6 (0.0-1.0) % Sodium 140 (135-145) mmol/L Potassium 3.5 L (3.6-5.0) mmol/L Chloride 107 (101-111) mmol/L Carbon Dioxide 23.0 (21.0-31.0) mmol/L Anion Gap 13.5 BUN 5 L (7-18) mg/dL Creatinine 0.6 (0.6-1.3) mg/dL Est Cr Clr Drug Dosing TNP Estimated GFR (MDRD) > 60 BUN/Creatinine Ratio 8.33 Glucose 110 H (74-105) mg/dL Calcium 8.7 (8.4-10.2) mg/dl Total Bilirubin 1.2 H (0.2-1.0) mg/dL AST 27 (10-42) IU/L ALT 13 (10-60) IU/L Alkaline Phosphatase 88 (42-121) IU/L Creatine Kinase 97 (26-174) IU/L Creatine Kinase Index 3.8 H (0-2.4) % CK-MB (CK-2) 3.70 (0.4-4.7) ng/mL Troponin I 0.04 H* (0.00-0.02) ng/ml B-Natriuretic Peptide 2510 H (0-100) pg/ml Total Protein 7.6 (6.7-8.2) g/dl Albumin 3.7 (3.2-5.5) g/dl Globulin 3.9 Albumin/Globulin Ratio 0.95 Amylase 32 (28-100) U/L Lipase 15 L (22-51) U/L Urine Color (YELLOW) Urine Appearance (CLEAR) Urine pH (5.0-9.0) Ur Specific [place] (1.005-1.030) Urine Protein (NEGATIVE) Urine Glucose (UA) (NEGATIVE) Urine Ketones (NEGATIVE) Urine Occult Blood (NEGATIVE) Urine Nitrite (NEGATIVE) Urine Bilirubin (NEGATIVE) Urine Urobilinogen (0.2-1.0) mg/dL Ur Leukocyte Esterase (NEGATIVE) Urine RBC /HPF Urine WBC (0-5/HPF) /HPF Ur Epithelial Cells /HPF Urine Bacteria (0-FEW/HPF) /HPF Urine Mucus /LPF Urine Opiates Screen (NEGATIVE) Ur Oxycodone Screen (NEGATIVE) Urine Methadone Screen (NEGATIVE) Ur Barbiturates Screen (NEGATIVE) U Tricyclic Antidepress (NEGATIVE) Ur Phencyclidine Scrn (NEGATIVE) Ur Amphetamine Screen (NEGATIVE) U Methamphetamines Scrn (NEGATIVE) Urine MDMA Screen (NEGATIVE) U Benzodiazepines Scrn (NEGATIVE) Urine Cocaine Screen (NEGATIVE) U Marijuana (THC) Screen (NEGATIVE) Ethyl Alcohol 39 mg/dL 08/14/16 08/14/16 Range/Units 09:32 09:32 WBC (5.0-10.0) 10^3/uL RBC (4.6-6.2) 10^6/uL Hgb (14.0-18.0) g/dL Hct (40.0-54.0) % MCV (80-100) fL MCH (27.0-34.0) pg MCHC (33.0-35.0) g/dL Plt Count (150-450) 10^3/uL Neut % (Auto) (42.2-75.2) % Lymph % (Auto) (20.5-50.1) % [place] % (Auto) (2-8) % Eos % (Auto) (1.0-3.0) % Baso % (Auto) (0.0-1.0) % Sodium (135-145) mmol/L Potassium (3.6-5.0) mmol/L Chloride (101-111) mmol/L Carbon Dioxide (21.0-31.0) mmol/L Anion Gap BUN (7-18) mg/dL Creatinine (0.6-1.3) mg/dL Est Cr Clr Drug Dosing Estimated GFR (MDRD) BUN/Creatinine Ratio Glucose (74-105) mg/dL Calcium (8.4-10.2) mg/dl Total Bilirubin (0.2-1.0) mg/dL AST (10-42) IU/L ALT (10-60) IU/L Alkaline Phosphatase (42-121) IU/L Creatine Kinase (26-174) IU/L Creatine Kinase Index (0-2.4) % CK-MB (CK-2) (0.4-4.7) ng/mL Troponin I (0.00-0.02) ng/ml B-Natriuretic Peptide (0-100) pg/ml Total Protein (6.7-8.2) g/dl Albumin (3.2-5.5) g/dl Globulin Albumin/Globulin Ratio Amylase (28-100) U/L Lipase (22-51) U/L Urine Color Dark yellow (YELLOW) Urine Appearance Clear (CLEAR) Urine pH 6.0 (5.0-9.0) Ur Specific [place] 1.015 (1.005-1.030) Urine Protein 100 H (NEGATIVE) Urine Glucose (UA) Negative (NEGATIVE) Urine Ketones Negative (NEGATIVE) Urine Occult Blood Small H (NEGATIVE) Urine Nitrite Negative (NEGATIVE) Urine Bilirubin Negative (NEGATIVE) Urine Urobilinogen 1.0 (0.2-1.0) mg/dL Ur Leukocyte Esterase Negative (NEGATIVE) Urine RBC 5-10 H /HPF Urine WBC 0-5 (0-5/HPF) /HPF Ur Epithelial Cells Rare /HPF Urine Bacteria Occasional (0-FEW/HPF) /HPF Urine Mucus Few H /LPF Urine Opiates Screen Negative (NEGATIVE) Ur Oxycodone Screen Positive H (NEGATIVE) Urine Methadone Screen Negative (NEGATIVE) Ur Barbiturates Screen Negative (NEGATIVE) U Tricyclic Antidepress Negative (NEGATIVE) Ur Phencyclidine Scrn Negative (NEGATIVE) Ur Amphetamine Screen Negative (NEGATIVE) U Methamphetamines Scrn Positive H (NEGATIVE) Urine MDMA Screen Negative (NEGATIVE) U Benzodiazepines Scrn Negative (NEGATIVE) Urine Cocaine Screen Negative (NEGATIVE) U Marijuana (THC) Screen Positive H (NEGATIVE) Ethyl Alcohol mg/dL Meds: Medications Generic Name Dose Route Start Last Admin Trade Name Freq PRN Reason Stop Dose Admin Sodium Chloride 10 ml 08/14/16 09:13 08/14/16 09:25 Saline Flush FLUSH 10 ml ASDIRECTED PRN Administration Keep Vein Open Discontinued Medications Generic Name Dose Route Start Last Admin Trade Name Freq PRN Reason Stop Dose Admin Aspirin 324 mg 08/14/16 10:20 Aspirin PO 08/14/16 10:21 ONETIME ONE Furosemide 40 mg 08/14/16 10:15 08/14/16 10:21 Lasix IVPUSH 06/08/17 10:16 40 mg NOW ONE Administration Heparin Sodium (Porcine) 5,000 units 08/14/16 10:15 Heparin Sodium IVPUSH 08/14/16 10:16 ONETIME ONE Morphine Sulfate 2 mg 08/14/16 09:39 08/14/16 09:52 Morphine IVPUSH 08/14/16 09:40 2 mg ONETIME ONE Administration Ondansetron HCl 4 mg 08/14/16 09:15 08/14/16 09:25 Zofran IV 08/14/16 09:16 4 mg ONETIME ONE Administration Pantoprazole Sodium 40 mg 08/14/16 09:39 08/14/16 09:56 Protonix Iv IVPUSH 08/14/16 09:40 40 mg ONETIME ONE Administration - Radiology Interpretation Free Text/Narrative:: CXR: cardiomegaly, see Rad. report. Departure - Departure Time of Disposition: 10:23 Disposition: DC/Tfer to Acute Hospital 02 Reason for Transfer *Q: Primary PCI Indicated Condition: serious Clinical Impression: NSTEMI (non-ST elevated myocardial infarction), Chronic alcohol abuse, Polysubstance abuse Forms: ED Department Discharge, Interfacility Transfer EMTALA - My Orders Last 24 Hours: My Active Orders 08/14/16 09:13 EKG 12 Lead [EKG Documentation Completion] [RC] STAT Peripheral IV Care [RC] . DIRECTED Sodium Chloride 0.9% [Saline Flush] 10 ml FLUSH ASDIRECTED PRN Peripheral IV Insertion Adult [OM.PC] Stat - Assessment/Plan Last 24 Hours: My Active Orders 08/14/16 09:13 EKG 12 Lead [EKG Documentation Completion] [RC] STAT Peripheral IV Care [RC] . DIRECTED Sodium Chloride 0.9% [Saline Flush] 10 ml FLUSH ASDIRECTED PRN Peripheral IV Insertion Adult [OM.PC] Stat
[2016-08-14] MEDS ORDERED: Ondansetron 4 MG/2 ML SDV IV ONE (09:15)
[2016-08-14] MEDS ORDERED: Morphine 2 MG/ML Syringe IVPUSH ONE (09:39)
[2016-08-14] MEDS ORDERED: Pantoprazole 40 MG Vial IVPUSH ONE (09:39)
--- NOTE | 2016-08-14 09:45 | CR ---
Clinical history: 51-year-old male chest pain. Interpretation: Abnormal. Chronically enlarged cardiac silhouette (cardiomyopathy and/or pericardial effusion) with generalize d mild pulmonary venous ingestion and with trace of fluid in the minor fissure since 29 Jul 2016 exa m. No new signs of alveolar edema or dependent pleural fluid accumulation. No new lung mass, hilar lymphadenopathy or focal lobar pneumonia. No atelectasis/collapse. No pneumo thorax. CONCLUSION: Chronic cardiac abnormality with subtle increase venous congestion since 29 July exam.
[2016-08-14 10:01] LABS: CHLORIDE,CL 107 mmol/L (101-111); SODIUM,NA 140 mmol/L (135-145)
[2016-08-14] MEDS ORDERED: Furosemide 40 MG/4 ML VIAL IVPUSH ONE (10:15)
[2016-08-14] MEDS ORDERED: Heparin Sodium 5,000 Units/ML Vial IVPUSH ONE (10:15)
[2016-08-14] MEDS ORDERED: Aspirin 81 MG Tab.Chew PO ONE (10:20)
[2016-08-14 10:24] VITALS: BP 127/89
--- NOTE | 2016-08-15 14:51 | EKG ---
08/14/2016- MANNIE MEREDITH - EKG per my reading shows sinus rhythm with left bundle-branch block at the rate of 98. MOD /[id number]
== END 2016-08-14 11:12 ==
LOC: DL.ED 09:02
DX: I21.4 Non-ST elevation (NSTEMI) myocardial infarction (principal); F10.10 Alcohol abuse, uncomplicated; F19.10 Other psychoactive substance abuse, uncomplicated; F17.210 Nicotine dependence, cigarettes, uncomplicated; K21.9 Gastro-esophageal reflux disease without esophagitis; F41.9 Anxiety disorder, unspecified; Z79.899 Other long term (current) drug therapy
CPT/HCPCS: 36415; 71010; 80053; 80305; 81001; 82150; 82550; 82553; 83690; 83880; 84484; 85025; 93005; 96374; 96375; 99285; A9270; G0480; J1644; J1940; J2270; J2405; J7050; C9113

== ENCOUNTER 2016-08-21 14:14 | Emergency (ER) | payer MEDICAID ==
[2016-08-21 14:23] VITALS: BP 134/99
--- NOTE | 2016-08-21 14:31 | EDM.PDOC ---
ED HPI GENERAL MEDICAL PROBLEM - General Chief Complaint: Upper Extremity Injury/Pain Stated Complaint: IN BY AMBULANCE Time Seen by Provider: 08/21/16 14:15 Source of Information: Reports: Patient History Limitations: Reports: No Limitations - History of Present Illness INITIAL COMMENTS - FREE TEXT/NARRATIVE: This 51 yo male patient reports to the ED with pain in his left shoulder. The patient reports his pain started in his left shoulder 3 years ago, but got better for a while. Over the past 2 months, the patient reports increased pain in his shoulder. The patient was supposed to have an appointment in [place] today, but the [facility] did not come to pick him up today. The patient reports he has not been able to sleep in the past 3 night due to the pain in his shoulder. The patient reports he does not go to the [facility] because the providers change all the time. Onset: Gradual Duration: Constant, Getting Worse Location: Reports: Lower Extremity, Left (shoulder) Quality: Reports: Ache, Dull Severity: Moderate Improves with: Reports: None Worsens with: Reports: None Associated Symptoms: Reports: No Other Symptoms Treatments PICK REMOVER: Denies: Acetaminophen, NSAIDS Left Shoulder Pain Score (Numeric/FACES): 8 - Related Data Allergies Allergy/AdvReac Type Severity Reaction Status Date / Time No Known Allergies Allergy Verified 08/21/16 14:11 Home Meds: Home Meds Lisinopril 20 mg PO DAILY 07/17/14 [History] Carvedilol [Coreg] 6.25 mg PO BIDMEALS 10/18/15 [History] Furosemide [Lasix] 40 mg PO DAILY 10/18/15 [History] Spironolactone [Aldactone] 25 mg PO DAILY 10/18/15 [History] Past Medical History HEENT History: Reports: None Cardiovascular History: Reports: Cardiomyopathy, Heart Failure, Hypertension Respiratory History: Reports: SOB Gastrointestinal History: Reports: GERD Genitourinary History: Reports: Other (See Below) Other Genitourinary History: liver issues r/t ETOH Musculoskeletal History: Reports: Other (See Below) Other Musculoskeletal History: torn left and right upper arm tendon Neurological History: Reports: None Psychiatric History: Reports: Anxiety Endocrine/Metabolic History: Reports: None Hematologic History: Reports: None Immunologic History: Reports: None Oncologic (Cancer) History: Reports: None Dermatologic History: Reports: None - Infectious Disease History Infectious Disease History: Reports: None - Past Surgical History Cardiovascular Surgical History: Reports: Percutaneous Transluminal Angioplasty Social & Family History - Family History Family Medical History: Noncontributory Cardiac: Reports: Hypertension Other Cardiac Family History: Dad and paternal grandmother have hypertension. Respiratory: Reports: Asthma Other Respiratory Family Hisory: Mom and dad have asthma. Endocrine/Metabolic: Reports: Diabetes, Type I Other Endocrine/Metabolic Family History: Dad and paternal grandmother have type I diabetes. - Tobacco Use Smoking Status *Q: Current Every Day Smoker Years of Tobacco use: 10 Packs/Tins Daily: 0.5 Used Tobacco, but Quit: No Second Hand Smoke Exposure: Yes - Caffeine Use Caffeine Use: Reports: Coffee, Soda, Tea - Alcohol Use Days Per Week of Alcohol Use: 3 Number of Drinks Per Day: 12 Total Drinks Per Week: 36 - Recreational Drug Use Recreational Drug Use: Yes Drug Use in Last 12 Months: Yes Recreational Drug Type: Reports: Methamphetamine, Oxycodone Recreational Drug Use Frequency: Binges Recreational Drug Last Use: yesterday - Living Situation & Occupation Living situation: Reports: with Family Review of Systems - Review of Systems Review Of Systems: ROS reveals no pertinent complaints other than HPI. ED EXAM, GENERAL - Physical Exam Exam: See Below Exam Limited By: No Limitations General Appearance: Alert, WD/WN, Mild Distress Eye Exam: Bilateral Eye: EOMI, Normal Inspection, PERRL Ears: Normal External Exam, Normal Canal, Hearing Grossly Normal, Normal TMs Nose: Normal Inspection, Normal Mucosa, No Blood Throat/Mouth: Normal Inspection, Normal Lips, Normal Teeth, Normal Gums, Normal Oropharynx, Normal Voice, No Airway Compromise Head: Atraumatic, Normocephalic Neck: Normal Inspection, Supple, Non-Tender, Full Range of Motion Respiratory/Chest: No Respiratory Distress, Lungs Clear, Normal Breath Sounds, No Accessory Muscle Use, Chest Non-Tender Cardiovascular: Normal Peripheral Pulses, Regular Rate, Rhythm, No Edema, No Gallop, No JVD, No Murmur, No Rub GI/Abdominal: Normal Bowel Sounds, Soft, Non-Tender, No Organomegaly, No Distention, No Abnormal Bruit, No Mass (Male) Exam: Deferred Rectal (Males) Exam: Deferred Back Exam: Normal Inspection, Full Range of Motion, NT Extremities: Arm Pain (left shoulder pain with palpation. ), Other (The patient has some tenderness to the anterior shoulder. The patient has full range of motion, but reported some pain) Neurological: Alert, Oriented, CN II-XII Intact, Normal Cognition, Normal Gait, Normal Reflexes, No Motor/Sensory Deficits Psychiatric: Normal Affect, Normal Mood Skin Exam: Warm, Dry, Intact, Normal Color, No Rash Lymphatic: No Adenopathy Course - Vital Signs Last Recorded V/S: Last Vital Signs Temp 36.3 C 08/21/16 14:18 Pulse 99 08/21/16 14:18 Resp 20 08/21/16 14:18 BP 134/99 H 08/21/16 14:18 Pulse Ox 99 08/21/16 14:18 - Orders/Labs/Meds Meds: Medications Discontinued Medications Generic Name Dose Route Start Last Admin Trade Name Freq PRN Reason Stop Dose Admin Ketorolac Tromethamine 60 mg 08/21/16 15:03 Toradol IM 08/21/16 15:04 ONETIME ONE Departure - Departure Time of Disposition: 15:09 Disposition: Home, Self-Care 01 Condition: Fair Clinical Impression: Injury of left rotator cuff Qualifiers: Encounter type: initial encounter Qualified Code(s): S46.002A - Unspecified injury of muscle(s) and tendon(s) of the rotator cuff of left shoulder, initial encounter - Discharge Information Instructions: Cervical Sprain, [id number] Forms: ED Department Discharge Care Plan Goals: The patient was advised of the examination and x-ray results during the visit. The patient was given an injection of Toradol (60 mg) while in the ED. The patient was discharged with a script for Toradol (10 mg) #20 to take 1 by mouth every 6 hours. The patient should follow-up with his primary care facility within the next week for continued evaluation and management.
--- NOTE | 2016-08-21 14:57 | CR ---
CLINICAL HISTORY: Three views left shoulder 51-year-old male with "worsening" pain (2 months). INTERPRETATION: The humeral head is elevated relative to the glenoid of the scapula suggesting proba ble rotator cuff impingement or tear. Mild reactive arthritic changes ipsilateral left AC joint and subtle sclerosis lateral aspect of the humeral head suggesting old dislocation. No sign of pathologic skeletal lesion, acute left shoulder fracture or dislocation. CONCLUSION: Probable rotator cuff damage (see above). No acute fracture or dislocation.
[2016-08-21] MEDS ORDERED: Ketorolac 30 MG/ML SDV IM ONE (15:03)
== END 2016-08-21 15:23 | disposition home or self-care (01) ==
LOC: DL.ED 14:14
DX: S46.002A Unspecified injury of muscle(s) and tendon(s) of the rotator cuff of left shoulder, initial encounter (principal); I11.0 Hypertensive heart disease with heart failure; I50.9 Heart failure, unspecified; F17.210 Nicotine dependence, cigarettes, uncomplicated; K21.9 Gastro-esophageal reflux disease without esophagitis; F41.9 Anxiety disorder, unspecified; Z79.899 Other long term (current) drug therapy; X58.XXXA Exposure to other specified factors, initial encounter
CPT/HCPCS: 73030; 96372; 99284; J1885

== ENCOUNTER 2016-08-22 06:49 | Emergency (ER) | payer MEDICAID ==
[2016-08-22 06:55] VITALS: BP 130/96
--- NOTE | 2016-08-22 07:07 | EDM.PDOC ---
ED HPI GENERAL MEDICAL PROBLEM - General Stated Complaint: VOMITTING/POSSIBLE ALLEG REACTONS Time Seen by Provider: 08/22/16 06:52 Source of Information: Reports: Patient History Limitations: Reports: No Limitations - History of Present Illness INITIAL COMMENTS - FREE TEXT/NARRATIVE: This 51 yo male patient was brought to the ED by [facility] due to vomiting. The patient reports he started to get sick at 1000 last night. The patient reports he has been vomiting all night. The patient reported to EMS that he vomited 1 time with some blood in his vomit. The patient was seen in the ED yesterday for left shoulder pain, had x-rays on his shoulder and was given Toradol. The patient denies any drug or ETOH use within the past week. Onset: Sudden Onset Date: 08/21/16 Onset Time: 22:00 Duration: Constant Location: Reports: Abdomen Quality: Reports: Other Severity: Mild Improves with: Reports: None Worsens with: Reports: None Associated Symptoms: Reports: Nausea/Vomiting Abdominal Pain Score (Numeric/FACES): 7 - Related Data Allergies Allergy/AdvReac Type Severity Reaction Status Date / Time No Known Allergies Allergy Verified 08/22/16 06:52 Home Meds: Home Meds Lisinopril 20 mg PO DAILY 07/17/14 [History] Carvedilol [Coreg] 6.25 mg PO BIDMEALS 10/18/15 [History] Furosemide [Lasix] 40 mg PO DAILY 10/18/15 [History] Spironolactone [Aldactone] 25 mg PO DAILY 10/18/15 [History] Past Medical History HEENT History: Reports: None Cardiovascular History: Reports: Cardiomyopathy, Heart Failure, Hypertension Respiratory History: Reports: SOB Gastrointestinal History: Reports: GERD Genitourinary History: Reports: Other (See Below) Other Genitourinary History: liver issues r/t ETOH Musculoskeletal History: Reports: Other (See Below) Other Musculoskeletal History: torn left and right upper arm tendon Neurological History: Reports: None Psychiatric History: Reports: Anxiety Endocrine/Metabolic History: Reports: None Hematologic History: Reports: None Immunologic History: Reports: None Oncologic (Cancer) History: Reports: None Dermatologic History: Reports: None - Infectious Disease History Infectious Disease History: Reports: None - Past Surgical History Cardiovascular Surgical History: Reports: Percutaneous Transluminal Angioplasty Social & Family History - Family History Family Medical History: Noncontributory Cardiac: Reports: Hypertension Other Cardiac Family History: Dad and paternal grandmother have hypertension. Respiratory: Reports: Asthma Other Respiratory Family Hisory: Mom and dad have asthma. Endocrine/Metabolic: Reports: Diabetes, Type I Other Endocrine/Metabolic Family History: Dad and paternal grandmother have type I diabetes. - Tobacco Use Smoking Status *Q: Current Every Day Smoker Years of Tobacco use: 10 Packs/Tins Daily: 0.5 Used Tobacco, but Quit: No Second Hand Smoke Exposure: Yes - Caffeine Use Caffeine Use: Reports: Coffee, Soda, Tea - Alcohol Use Days Per Week of Alcohol Use: 3 Number of Drinks Per Day: 12 Total Drinks Per Week: 36 - Recreational Drug Use Recreational Drug Use: Yes Drug Use in Last 12 Months: Yes Recreational Drug Type: Reports: Methamphetamine, Oxycodone Other Recreational Drug Type: has not used for the last week Recreational Drug Use Frequency: Binges Recreational Drug Last Use: yesterday - Living Situation & Occupation Living situation: Reports: with Family ED ROS GENERAL - Review of Systems Review Of Systems: ROS reveals no pertinent complaints other than HPI. ED EXAM, GI/ABD - Physical Exam Exam: See Below Exam Limited By: No Limitations General Appearance: Alert, WD/WN, Mild Distress Eyes: Bilateral: Normal Appearance, EOMI Ears: Normal External Exam, Normal Canal, Hearing Grossly Normal, Normal TMs Nose: Normal Inspection, Normal Mucosa, No Blood Throat/Mouth: Normal Inspection, Normal Lips, Normal Teeth, Normal Gums, Normal Oropharynx, Normal Voice, No Airway Compromise Head: Atraumatic, Normocephalic Neck: Normal Inspection, Supple, Non-Tender, Full Range of Motion Respiratory/Chest: No Respiratory Distress, Lungs Clear, Normal Breath Sounds, No Accessory Muscle Use, Chest Non-Tender Cardiovascular: Normal Peripheral Pulses, Regular Rate, Rhythm, No Edema, No Gallop, No JVD, No Murmur, No Rub GI/Abdominal: Normal Bowel Sounds, Soft, No Organomegaly, No Distention, No Abnormal Bruit, No Mass, Pelvis Stable, Tenderness (epigastric) (Male) Exam: Deferred Rectal (Males) Exam: Deferred Back Exam: Normal Inspection, Full Range of Motion, NT Extremities: Normal Inspection, Normal Range of Motion, Non-Tender, Normal Capillary Refill, No Pedal Edema Neurological: Alert, Oriented, CN II-XII Intact, Normal Cognition, Normal Gait, Normal Reflexes, No Motor/Sensory Deficits Psychiatric: Depressed Mood, Flat Affect Skin Exam: Warm, Dry, Intact, Normal Color, No Rash Lymphatic: No Adenopathy Course - Vital Signs Last Recorded V/S: Last Vital Signs Temp 35.3 C 08/22/16 06:53 Pulse 92 08/22/16 06:53 Resp 18 08/22/16 06:53 BP 130/96 H 08/22/16 06:53 Pulse Ox 100 08/22/16 06:53 - Orders/Labs/Meds Labs: Laboratory Tests 08/22/16 08/22/16 08/22/16 Range/Units 06:19 06:19 07:02 WBC 6.4 (5.0-10.0) 10^3/uL RBC 5.04 (4.6-6.2) 10^6/uL Hgb 14.7 (14.0-18.0) g/dL Hct 45.8 (40.0-54.0) % MCV 90.9 (80-100) fL MCH 29.2 (27.0-34.0) pg MCHC 32.1 L (33.0-35.0) g/dL Plt Count 238 (150-450) 10^3/uL Neut % (Auto) 62.0 (42.2-75.2) % Lymph % (Auto) 23.1 (20.5-50.1) % [place] % (Auto) 7.9 (2-8) % Eos % (Auto) 6.5 H (1.0-3.0) % Baso % (Auto) 0.5 (0.0-1.0) % Sodium (135-145) mmol/L Potassium (3.6-5.0) mmol/L Chloride (101-111) mmol/L Carbon Dioxide (21.0-31.0) mmol/L Anion Gap BUN (7-18) mg/dL Creatinine (0.6-1.3) mg/dL Est Cr Clr Drug Dosing Estimated GFR (MDRD) BUN/Creatinine Ratio Glucose (74-105) mg/dL Calcium (8.4-10.2) mg/dl Total Bilirubin (0.2-1.0) mg/dL AST (10-42) IU/L ALT (10-60) IU/L Alkaline Phosphatase (42-121) IU/L Total Protein (6.7-8.2) g/dl Albumin (3.2-5.5) g/dl Globulin Albumin/Globulin Ratio Urine Color [place] (YELLOW) Urine Appearance Clear (CLEAR) Urine pH 6.0 (5.0-9.0) Ur Specific [place] >= 1.030 (1.005-1.030) Urine Protein >=300 H (NEGATIVE) Urine Glucose (UA) Negative (NEGATIVE) Urine Ketones Trace H (NEGATIVE) Urine Occult Blood Small H (NEGATIVE) Urine Nitrite Negative (NEGATIVE) Urine Bilirubin Moderate H (NEGATIVE) Urine Urobilinogen 1.0 (0.2-1.0) mg/dL Ur Leukocyte Esterase Negative (NEGATIVE) Urine RBC 5-10 H /HPF Urine WBC 0-5 (0-5/HPF) /HPF Ur Epithelial Cells Few /HPF Urine Bacteria Few (0-FEW/HPF) /HPF Hyaline Casts Occasional H /LPF Granular Casts Occasional /LPF Urine Mucus Many H /LPF Urine Opiates Screen Negative (NEGATIVE) Ur Oxycodone Screen Positive H (NEGATIVE) Urine Methadone Screen Negative (NEGATIVE) Ur Barbiturates Screen Negative (NEGATIVE) U Tricyclic Antidepress Negative (NEGATIVE) Ur Phencyclidine Scrn Negative (NEGATIVE) Ur Amphetamine Screen Negative (NEGATIVE) U Methamphetamines Scrn Positive H (NEGATIVE) Urine MDMA Screen Negative (NEGATIVE) U Benzodiazepines Scrn Negative (NEGATIVE) Urine Cocaine Screen Negative (NEGATIVE) U Marijuana (THC) Screen Positive H (NEGATIVE) Ethyl Alcohol mg/dL 08/22/16 Range/Units 07:02 WBC (5.0-10.0) 10^3/uL RBC (4.6-6.2) 10^6/uL Hgb (14.0-18.0) g/dL Hct (40.0-54.0) % MCV (80-100) fL MCH (27.0-34.0) pg MCHC (33.0-35.0) g/dL Plt Count (150-450) 10^3/uL Neut % (Auto) (42.2-75.2) % Lymph % (Auto) (20.5-50.1) % [place] % (Auto) (2-8) % Eos % (Auto) (1.0-3.0) % Baso % (Auto) (0.0-1.0) % Sodium 142 (135-145) mmol/L Potassium 3.7 (3.6-5.0) mmol/L Chloride 105 (101-111) mmol/L Carbon Dioxide 27.0 (21.0-31.0) mmol/L Anion Gap 13.7 BUN 14 (7-18) mg/dL Creatinine 0.9 (0.6-1.3) mg/dL Est Cr Clr Drug Dosing TNP Estimated GFR (MDRD) > 60 BUN/Creatinine Ratio 15.55 Glucose 124 H (74-105) mg/dL Calcium 9.1 (8.4-10.2) mg/dl Total Bilirubin 1.6 H (0.2-1.0) mg/dL AST 48 H (10-42) IU/L ALT 69 H (10-60) IU/L Alkaline Phosphatase 97 (42-121) IU/L Total Protein 7.5 (6.7-8.2) g/dl Albumin 3.5 (3.2-5.5) g/dl Globulin 4.0 Albumin/Globulin Ratio 0.88 Urine Color (YELLOW) Urine Appearance (CLEAR) Urine pH (5.0-9.0) Ur Specific [place] (1.005-1.030) Urine Protein (NEGATIVE) Urine Glucose (UA) (NEGATIVE) Urine Ketones (NEGATIVE) Urine Occult Blood (NEGATIVE) Urine Nitrite (NEGATIVE) Urine Bilirubin (NEGATIVE) Urine Urobilinogen (0.2-1.0) mg/dL Ur Leukocyte Esterase (NEGATIVE) Urine RBC /HPF Urine WBC (0-5/HPF) /HPF Ur Epithelial Cells /HPF Urine Bacteria (0-FEW/HPF) /HPF Hyaline Casts /LPF Granular Casts /LPF Urine Mucus /LPF Urine Opiates Screen (NEGATIVE) Ur Oxycodone Screen (NEGATIVE) Urine Methadone Screen (NEGATIVE) Ur Barbiturates Screen (NEGATIVE) U Tricyclic Antidepress (NEGATIVE) Ur Phencyclidine Scrn (NEGATIVE) Ur Amphetamine Screen (NEGATIVE) U Methamphetamines Scrn (NEGATIVE) Urine MDMA Screen (NEGATIVE) U Benzodiazepines Scrn (NEGATIVE) Urine Cocaine Screen (NEGATIVE) U Marijuana (THC) Screen (NEGATIVE) Ethyl Alcohol < 5 mg/dL Meds: Medications Discontinued Medications Generic Name Dose Route Start Last Admin Trade Name Freq PRN Reason Stop Dose Admin Ondansetron HCl 4 mg 08/22/16 07:40 Zofran Odt PO 08/22/16 07:41 ONETIME ONE Departure - Departure Time of Disposition: 07:42 Disposition: Home, Self-Care 01 Condition: Fair Clinical Impression: Gastritis Qualifiers: Gastritis type: other gastritis Chronicity: acute Gastritis bleeding: presence of bleeding unspecified Qualified Code(s): K29.00 - Acute gastritis without bleeding - Discharge Information Instructions: Viral Gastroenteritis, Adult, [id number], Stimulant Use Disorder-Methamphetamines Care Plan Goals: The patient was advised of the examination and lab results during the visit. The patient was given an oral dose of Zofran (4 mg) ODT while in the ED. The patient was discharged with a script for Zofran (4 mg) #8 to take 1 by mouth every 6 hours as needed for nausea. The patient was encouraged to stick to a BRAT diet (bananas, rice, applesauce and toast) over the next 48 hours with small frequent sips of fluid. If the patient has any additional symptoms or concerns, the patient should follow-up with his primary care facility for additional evaluation and management.
[2016-08-22 07:27] LABS: CHLORIDE,CL 105 mmol/L (101-111); SODIUM,NA 142 mmol/L (135-145)
[2016-08-22] MEDS ORDERED: Ondansetron 4 MG Tab.DIS PO ONE (07:40)
== END 2016-08-22 07:53 | disposition home or self-care (01) ==
LOC: DL.ED 06:49
DX: K29.00 Acute gastritis without bleeding (principal); I11.0 Hypertensive heart disease with heart failure; I50.9 Heart failure, unspecified; K21.9 Gastro-esophageal reflux disease without esophagitis; F41.9 Anxiety disorder, unspecified; F17.210 Nicotine dependence, cigarettes, uncomplicated; Z79.899 Other long term (current) drug therapy
CPT/HCPCS: 36415; 80053; 80305; 81001; 85025; 99284; A9270; G0480

== ENCOUNTER 2016-09-13 09:50 | Emergency (ER) | payer MEDICAID ==
[2016-09-13] MEDS ORDERED: Sodium Chloride 0.9% 10 ML Syringe FLUSH PRN (09:57)
--- NOTE | 2016-09-13 09:57 | EDM.PDOC ---
ED HPI GENERAL MEDICAL PROBLEM - General Chief Complaint: Respiratory Problem Stated Complaint: IN BY AMBULANCE Time Seen by Provider: 09/13/16 09:57 Source of Information: Reports: Patient, EMS, Old Records, RN, RN Notes Reviewed History Limitations: Reports: No Limitations - History of Present Illness INITIAL COMMENTS - FREE TEXT/NARRATIVE: Arrives from home by ambulance with c/o onset of shortness of breath 2 or 3 days ago which has progressively worsened. This morning the pt walked out to his mail box and became short or breath and called 911. Pt states that this morning he was having a cough and some generalized upper abdominal discomfort, then vomited x2. Denies chest pain, fever or chills. Onset: Gradual Duration: Day(s): (2-3), Constant, Getting Worse Location: Reports: Chest, Abdomen Quality: Reports: Ache Severity: Moderate Improves with: Reports: None Worsens with: Reports: Other (activity) Associated Symptoms: Reports: No Other Symptoms Left Middle Abdominal Pain Score (Numeric/FACES): 7 - Related Data Allergies Allergy/AdvReac Type Severity Reaction Status Date / Time No Known Allergies Allergy Verified 09/13/16 09:52 Home Meds: Home Meds Lisinopril 20 mg PO DAILY 07/17/14 [History] Carvedilol [Coreg] 6.25 mg PO BIDMEALS 10/18/15 [History] Furosemide [Lasix] 40 mg PO DAILY 10/18/15 [History] Spironolactone [Aldactone] 25 mg PO DAILY 10/18/15 [History] Past Medical History - Past Health History Medical/Surgical History: Denies Medical/Surgical History HEENT History: Reports: None Cardiovascular History: Reports: Cardiomyopathy, Heart Failure, Hypertension Respiratory History: Reports: SOB Gastrointestinal History: Reports: GERD Genitourinary History: Reports: Other (See Below) Other Genitourinary History: liver issues r/t ETOH Musculoskeletal History: Reports: Other (See Below) Other Musculoskeletal History: torn left and right upper arm tendon Neurological History: Reports: None Psychiatric History: Reports: Anxiety Endocrine/Metabolic History: Reports: None Hematologic History: Reports: None Immunologic History: Reports: None Oncologic (Cancer) History: Reports: None Dermatologic History: Reports: None - Infectious Disease History Infectious Disease History: Reports: None - Past Surgical History Cardiovascular Surgical History: Reports: Percutaneous Transluminal Angioplasty Social & Family History - Family History Family Medical History: Noncontributory Cardiac: Reports: Hypertension Other Cardiac Family History: Dad and paternal grandmother have hypertension. Respiratory: Reports: Asthma Other Respiratory Family Hisory: Mom and dad have asthma. Endocrine/Metabolic: Reports: Diabetes, Type I Other Endocrine/Metabolic Family History: Dad and paternal grandmother have type I diabetes. - Tobacco Use Smoking Status *Q: Current Every Day Smoker Years of Tobacco use: 10 Packs/Tins Daily: 0.5 Used Tobacco, but Quit: No Second Hand Smoke Exposure: Yes - Caffeine Use Caffeine Use: Reports: Coffee, Soda, Tea - Alcohol Use Days Per Week of Alcohol Use: 3 Number of Drinks Per Day: 12 Total Drinks Per Week: 36 - Recreational Drug Use Recreational Drug Use: Yes Drug Use in Last 12 Months: Yes Recreational Drug Type: Reports: Methamphetamine, Oxycodone Other Recreational Drug Type: has not used for the last week Recreational Drug Use Frequency: Binges Recreational Drug Last Use: yesterday - Living Situation & Occupation Living situation: Reports: with Family ED ROS GENERAL - Review of Systems Review Of Systems: ROS reveals no pertinent complaints other than HPI. ED EXAM, GENERAL - Physical Exam Exam: See Below Exam Limited By: No Limitations General Appearance: Alert, No Apparent Distress, Other (chronically ill appearing) Eye Exam: Bilateral Eye: Normal Inspection Ears: Hearing Grossly Normal Nose: Normal Inspection, Normal Mucosa, No Blood Throat/Mouth: Normal Lips, Normal Oropharynx, Normal Voice, No Airway Compromise Head: Atraumatic, Normocephalic Neck: Normal Inspection, Supple, Non-Tender, Full Range of Motion, Other (no JVD ). No: Lymphadenopathy (L), Lymphadenopathy (R) Respiratory/Chest: No Respiratory Distress, No Accessory Muscle Use, Chest Non- Tender, Decreased Breath Sounds, Rales Cardiovascular: Regular Rate, Rhythm, No Edema GI/Abdominal: Normal Bowel Sounds, Soft, No Distention, No Abnormal Bruit. No: Guarding, Rigid, Rebound (Male) Exam: Deferred Rectal (Males) Exam: Deferred Back Exam: Normal Inspection Extremities: Normal Inspection, Normal Range of Motion, Non-Tender, Normal Capillary Refill, No Pedal Edema Neurological: Alert, Oriented, CN II-XII Intact, Normal Cognition, Normal Gait, No Motor/Sensory Deficits Psychiatric: Normal Affect, Normal Mood Skin Exam: Warm, Dry, Intact, Normal Color, No Rash EKG INTERPRETATION EKG Date: 09/13/16 Time: 09:56 Rhythm: Other (SR) Rate (Beats/Min): 83 [place]: Normal P-Wave: Present QRS: Wide (nonspecific IVCD) ST-T: Normal QT: Normal Comparison: No Change Course - Vital Signs Last Recorded V/S: Last Vital Signs Temp 36.4 C 09/13/16 09:59 Pulse 96 09/13/16 09:59 Resp 28 H 09/13/16 11:12 BP 111/85 09/13/16 11:12 Pulse Ox 98 09/13/16 11:12 - Orders/Labs/Meds Orders: Active Orders 24 hr Category Date Time Status EKG 12 Lead [EKG Documentation Completion] [RC] STAT Care 09/13/16 09:57 Active Peripheral IV Care [RC] . DIRECTED Care 09/13/16 09:58 Active Chest 2V [CR] Stat Exams 09/13/16 09:57 Taken CULTURE BLOOD [BC] Stat Lab 09/13/16 10:09 Received CULTURE BLOOD [BC] Stat Lab 09/13/16 10:15 Received Sodium Chloride 0.9% [Saline Flush] Med 09/13/16 09:57 Active 10 ml FLUSH ASDIRECTED PRN Blood Culture x2 Reflex Set [OM.PC] Stat Oth 09/13/16 09:57 Ordered Peripheral IV Insertion Adult [OM.PC] Stat Oth 09/13/16 09:57 Ordered Medication Orders Sodium Chloride (Saline Flush) 10 ml FLUSH ASDIRECTED PRN PRN Reason: Keep Vein Open Last Admin: 09/13/16 10:24 Dose: 10 ml Labs: Laboratory Tests 09/13/16 09/13/16 09/13/16 Range/Units 10:15 10:15 10:15 WBC 6.5 (5.0-10.0) 10^3/uL RBC 4.76 (4.6-6.2) 10^6/uL Hgb 13.6 L (14.0-18.0) g/dL Hct 41.6 (40.0-54.0) % MCV 87.4 (80-100) fL MCH 28.6 (27.0-34.0) pg MCHC 32.7 L (33.0-35.0) g/dL Plt Count 237 (150-450) 10^3/uL Neut % (Auto) 69.2 (42.2-75.2) % Lymph % (Auto) 20.0 L (20.5-50.1) % [place] % (Auto) 7.2 (2-8) % Eos % (Auto) 3.1 H (1.0-3.0) % Baso % (Auto) 0.5 (0.0-1.0) % Sodium 140 (135-145) mmol/L Potassium 3.9 (3.6-5.0) mmol/L Chloride 106 (101-111) mmol/L Carbon Dioxide 24.0 (21.0-31.0) mmol/L Anion Gap 13.9 BUN 18 (7-18) mg/dL Creatinine 0.9 (0.6-1.3) mg/dL Est Cr Clr Drug Dosing 98.95 mL/min Estimated GFR (MDRD) > 60 BUN/Creatinine Ratio 20.00 Glucose 116 H (74-105) mg/dL Lactic Acid 1.4 (0.5-2.2) mmol/L Calcium 8.9 (8.4-10.2) mg/dl Total Bilirubin 1.5 H (0.2-1.0) mg/dL AST 22 (10-42) IU/L ALT 14 (10-60) IU/L Alkaline Phosphatase 86 (42-121) IU/L Troponin I 0.03 H* (0.00-0.02) ng/ml B-Natriuretic Peptide 2600 H (0-100) pg/ml Total Protein 7.4 (6.7-8.2) g/dl Albumin 3.5 (3.2-5.5) g/dl Globulin 3.9 Albumin/Globulin Ratio 0.90 Amylase 35 (28-100) U/L Lipase 18 L (22-51) U/L Urine Color (YELLOW) Urine Appearance (CLEAR) Urine pH (5.0-9.0) Ur Specific [place] (1.005-1.030) Urine Protein (NEGATIVE) Urine Glucose (UA) (NEGATIVE) Urine Ketones (NEGATIVE) Urine Occult Blood (NEGATIVE) Urine Nitrite (NEGATIVE) Urine Bilirubin (NEGATIVE) Urine Urobilinogen (0.2-1.0) mg/dL Ur Leukocyte Esterase (NEGATIVE) Urine RBC /HPF Urine WBC (0-5/HPF) /HPF Urine Bacteria (0-FEW/HPF) /HPF Urine Mucus /LPF Urine Opiates Screen (NEGATIVE) Ur Oxycodone Screen (NEGATIVE) Urine Methadone Screen (NEGATIVE) Ur Barbiturates Screen (NEGATIVE) U Tricyclic Antidepress (NEGATIVE) Ur Phencyclidine Scrn (NEGATIVE) Ur Amphetamine Screen (NEGATIVE) U Methamphetamines Scrn (NEGATIVE) Urine MDMA Screen (NEGATIVE) U Benzodiazepines Scrn (NEGATIVE) Urine Cocaine Screen (NEGATIVE) U Marijuana (THC) Screen (NEGATIVE) Ethyl Alcohol < 5 mg/dL 09/13/16 09/13/16 Range/Units 10:21 10:21 WBC (5.0-10.0) 10^3/uL RBC (4.6-6.2) 10^6/uL Hgb (14.0-18.0) g/dL Hct (40.0-54.0) % MCV (80-100) fL MCH (27.0-34.0) pg MCHC (33.0-35.0) g/dL Plt Count (150-450) 10^3/uL Neut % (Auto) (42.2-75.2) % Lymph % (Auto) (20.5-50.1) % [place] % (Auto) (2-8) % Eos % (Auto) (1.0-3.0) % Baso % (Auto) (0.0-1.0) % Sodium (135-145) mmol/L Potassium (3.6-5.0) mmol/L Chloride (101-111) mmol/L Carbon Dioxide (21.0-31.0) mmol/L Anion Gap BUN (7-18) mg/dL Creatinine (0.6-1.3) mg/dL Est Cr Clr Drug Dosing mL/min Estimated GFR (MDRD) BUN/Creatinine Ratio Glucose (74-105) mg/dL Lactic Acid (0.5-2.2) mmol/L Calcium (8.4-10.2) mg/dl Total Bilirubin (0.2-1.0) mg/dL AST (10-42) IU/L ALT (10-60) IU/L Alkaline Phosphatase (42-121) IU/L Troponin I (0.00-0.02) ng/ml B-Natriuretic Peptide (0-100) pg/ml Total Protein (6.7-8.2) g/dl Albumin (3.2-5.5) g/dl Globulin Albumin/Globulin Ratio Amylase (28-100) U/L Lipase (22-51) U/L Urine Color Yellow (YELLOW) Urine Appearance Clear (CLEAR) Urine pH 5.5 (5.0-9.0) Ur Specific [place] 1.010 (1.005-1.030) Urine Protein Negative (NEGATIVE) Urine Glucose (UA) Negative (NEGATIVE) Urine Ketones Negative (NEGATIVE) Urine Occult Blood Trace-intact H (NEGATIVE) Urine Nitrite Negative (NEGATIVE) Urine Bilirubin Negative (NEGATIVE) Urine Urobilinogen 1.0 (0.2-1.0) mg/dL Ur Leukocyte Esterase Negative (NEGATIVE) Urine RBC 0-5 /HPF Urine WBC 0-5 (0-5/HPF) /HPF Urine Bacteria Rare (0-FEW/HPF) /HPF Urine Mucus Rare /LPF Urine Opiates Screen Negative (NEGATIVE) Ur Oxycodone Screen Positive H (NEGATIVE) Urine Methadone Screen Negative (NEGATIVE) Ur Barbiturates Screen Negative (NEGATIVE) U Tricyclic Antidepress Negative (NEGATIVE) Ur Phencyclidine Scrn Negative (NEGATIVE) Ur Amphetamine Screen Negative (NEGATIVE) U Methamphetamines Scrn Negative (NEGATIVE) Urine MDMA Screen Negative (NEGATIVE) U Benzodiazepines Scrn Negative (NEGATIVE) Urine Cocaine Screen Negative (NEGATIVE) U Marijuana (THC) Screen Negative (NEGATIVE) Ethyl Alcohol mg/dL Meds: Medications Generic Name Dose Route Start Last Admin Trade Name Freq PRN Reason Stop Dose Admin Sodium Chloride 10 ml 09/13/16 09:57 09/13/16 10:24 Saline Flush FLUSH 10 ml ASDIRECTED PRN Administration Keep Vein Open Discontinued Medications Generic Name Dose Route Start Last Admin Trade Name Freq PRN Reason Stop Dose Admin Furosemide 40 mg 09/13/16 11:07 09/13/16 11:12 Lasix IVPUSH 09/13/16 11:08 40 mg NOW ONE Administration Iopamidol 75 ml 09/13/16 11:23 Isovue-300 (61%) IVPUSH 09/13/16 11:24 ONETIME ONE Morphine Sulfate 4 mg 09/13/16 10:48 09/13/16 10:52 Morphine IVPUSH 09/13/16 10:49 4 mg ONETIME ONE Administration Ondansetron HCl 4 mg 09/13/16 10:40 09/13/16 10:45 Zofran IV 09/13/16 10:41 4 mg ONETIME ONE Administration - Radiology Interpretation Free Text/Narrative:: Chest x-ray: Per rad report reveals prominent right hilum may represent prominent vascular structures, adenopathy, or hilar mass. Cardiomegaly. CT chest: lrg. pulm. artery at Rt hilum, no mass per Rad. report. CT Results Date: 09/13/16 Departure - Departure Time of Disposition: 12:25 Disposition: Home, Self-Care 01 Condition: Fair Clinical Impression: Acute exacerbation of CHF (congestive heart failure) Qualifiers: Congestive heart failure type: unspecified congestive heart failure type Qualified Code(s): I50.9 - Heart failure, unspecified - Discharge Information Instructions: Heart Failure, [id number] Forms: ED Department Discharge Additional Instructions: Increase Furosemide 40mg to 1 tablet twice a day for the next 2 days. Rx: Zofran 4mg for nausea. Continue all of your other medications as prescribed. Follow up in clinic in 2 days for recheck. - My Orders Last 24 Hours: My Active Orders 09/13/16 09:57 EKG 12 Lead [EKG Documentation Completion] [RC] STAT Chest 2V [CR] Stat Sodium Chloride 0.9% [Saline Flush] 10 ml FLUSH ASDIRECTED PRN Blood Culture x2 Reflex Set [OM.PC] Stat Peripheral IV Insertion Adult [OM.PC] Stat 09/13/16 09:58 Peripheral IV Care [RC] . DIRECTED 09/13/16 10:09 CULTURE BLOOD [BC] Stat 09/13/16 10:15 CULTURE BLOOD [BC] Stat - Assessment/Plan Last 24 Hours: My Active Orders 09/13/16 09:57 EKG 12 Lead [EKG Documentation Completion] [RC] STAT Chest 2V [CR] Stat Sodium Chloride 0.9% [Saline Flush] 10 ml FLUSH ASDIRECTED PRN Blood Culture x2 Reflex Set [OM.PC] Stat Peripheral IV Insertion Adult [OM.PC] Stat 09/13/16 09:58 Peripheral IV Care [RC] . DIRECTED 09/13/16 10:09 CULTURE BLOOD [BC] Stat 09/13/16 10:15 CULTURE BLOOD [BC] Stat
[2016-09-13] MEDS ORDERED: Ondansetron 4 MG/2 ML SDV IV ONE (10:40)
[2016-09-13 10:43] LABS: CHLORIDE,CL 106 mmol/L (101-111); SODIUM,NA 140 mmol/L (135-145)
[2016-09-13] MEDS ORDERED: Morphine 4 MG/ML Syringe IVPUSH ONE (10:48)
[2016-09-13] MEDS ORDERED: Furosemide 40 MG/4 ML VIAL IVPUSH ONE (11:07)
[2016-09-13] MEDS ORDERED: Iopamidol 612 MG/ML 75 ML Bottle IVPUSH ONE (11:23)
--- NOTE | 2016-09-13 12:21 | CT ---
Clinical history: 51-year-old hypertensive male smoker with history of severe cardiac disease (eject ion fraction 19%) and masslike fullness right hilum on plain chest radiograph. Scan technique: Volume acquisition of data from the thorax obtained during intravenous ministration 75 cc nonionic Isovue contrast via injector while patient was lying supine on the Siemens multi slic e CT scanner [place], [place]. All data archived in the PACS system f or storage, reformatting and study (lung/mediastinal windows). Interpretation: Abnormal. 1 Huge cardiac silhouette with abnormal flow dynamics presumably reflecting cardiomyopathy and poor ejection fraction (timing). No sign of pericardial effusion, cephalization of vascular flow or alveo lar edema. No dependent pleural effusions. 2. Dilated asymmetrically prominent proximal pulmonary artery segments (right greater than left hcerie cking perihilar "mass"). 3. No sign of parenchymal lung nodule/mass lesion or hilar/mediastinal lymphadenopathy. 4. Peribronchial "cuffing" typical reactive airway disease and patchy medial segment right middle lo be, lingular segment left upper lobe, and left lower lobe atelectasis. No lobar pneumonia. 5. Normal caliber thoracic aorta. Minimal hypertrophic arthritic changes of the spine. 6. No pneumothorax. 7. Distended gallbladder right upper quadrant. Liver, stomach, spleen and pancreas unremarkable.
[2016-09-13 12:39] VITALS: BP 102/68
--- NOTE | 2016-09-16 14:04 | EKG ---
09/13/2016- MANNIE MEREDITH - Vivi 12-lead EKG shows normal sinus rhythm with heart rate of 83. No significant ST elevation or ST depression signs suggestive of left ventricular hypertrophy. Occasional PVCs noted. Nonspecific ST-T wave changes noted on lead V4, V5. [facility] /[id number]
== END 2016-09-13 12:32 | disposition home or self-care (01) ==
LOC: DL.ED 09:50
DX: I11.0 Hypertensive heart disease with heart failure (principal); I50.9 Heart failure, unspecified; K21.9 Gastro-esophageal reflux disease without esophagitis; F17.210 Nicotine dependence, cigarettes, uncomplicated; Z79.899 Other long term (current) drug therapy
CPT/HCPCS: 36415; 71020; 71260; 80053; 80305; 81001; 82150; 83605; 83690; 83880; 84484; 85025; 87040; 93005; 96374; 96375; 99285; G0480; J1940; J2270; J2405; J7050; Q9967

== ENCOUNTER 2016-10-12 03:32 | Emergency (ER) | payer MEDICAID ==
--- NOTE | 2016-10-12 03:52 | EDM.PDOC ---
ED HPI GENERAL MEDICAL PROBLEM - General Chief Complaint: Chest Pain Stated Complaint: IN BY AMBULANCE Time Seen by Provider: 10/12/16 03:35 Source of Information: Reports: Patient History Limitations: Reports: No Limitations - History of Present Illness INITIAL COMMENTS - FREE TEXT/NARRATIVE: This 51 yo male patient was brought to the ED by [facility] due to chest pain and shortness of breath. EMS gave the patient 3 aspirin during transport. Upon arrival in the ED, the patient reports his chest pain is located in his left upper chest. The patient had a pacemaker placed 4 days ago and his pain is just below the surgical site of the pacemaker. The patient reports his pain is a little better, but still present. The patient reports he took some oxy and hydros over the past couple of days (that he got from a "nikita") due to his left shoulder pain. The patient reports his current pain seems to be a little lower than the shoulder pain. Onset: Today Duration: Constant (left upper chest) Location: Reports: Chest (left upper chest) Quality: Reports: Ache, Dull Severity: Moderate Improves with: Reports: None Worsens with: Reports: None Associated Symptoms: Reports: No Other Symptoms Treatments CONTROL VALVE TECHNICIAN: Reports: Aspirin, Nitroglycerin Other Treatments CONTROL VALVE TECHNICIAN: 3 81mg aspirin, 1 nitro Left Chest Pain Score (Numeric/FACES): 7 - Related Data Allergies Allergy/AdvReac Type Severity Reaction Status Date / Time No Known Allergies Allergy Verified 09/13/16 09:52 Home Meds: Home Meds Lisinopril 20 mg PO DAILY 07/17/14 [History] Carvedilol [Coreg] 6.25 mg PO BIDMEALS 10/18/15 [History] Furosemide [Lasix] 40 mg PO DAILY 10/18/15 [History] Spironolactone [Aldactone] 25 mg PO DAILY 10/18/15 [History] Past Medical History - Past Health History Medical/Surgical History: Denies Medical/Surgical History HEENT History: Reports: None Cardiovascular History: Reports: Cardiomyopathy, Heart Failure, Hypertension Respiratory History: Reports: SOB Gastrointestinal History: Reports: GERD Genitourinary History: Reports: Other (See Below) Other Genitourinary History: liver issues r/t ETOH Musculoskeletal History: Reports: Other (See Below) Other Musculoskeletal History: torn left and right upper arm tendon Neurological History: Reports: None Psychiatric History: Reports: Anxiety Endocrine/Metabolic History: Reports: None Hematologic History: Reports: None Immunologic History: Reports: None Oncologic (Cancer) History: Reports: None Dermatologic History: Reports: None - Infectious Disease History Infectious Disease History: Reports: None - Past Surgical History Cardiovascular Surgical History: Reports: Percutaneous Transluminal Angioplasty Social & Family History - Family History Family Medical History: Noncontributory Cardiac: Reports: Hypertension Other Cardiac Family History: Dad and paternal grandmother have hypertension. Respiratory: Reports: Asthma Other Respiratory Family Hisory: Mom and dad have asthma. Endocrine/Metabolic: Reports: Diabetes, Type I Other Endocrine/Metabolic Family History: Dad and paternal grandmother have type I diabetes. - Tobacco Use Smoking Status *Q: Current Every Day Smoker Years of Tobacco use: 10 Packs/Tins Daily: 0.5 Used Tobacco, but Quit: No Second Hand Smoke Exposure: Yes - Caffeine Use Caffeine Use: Reports: Coffee, Soda, Tea - Alcohol Use Days Per Week of Alcohol Use: 3 Number of Drinks Per Day: 12 Total Drinks Per Week: 36 - Recreational Drug Use Recreational Drug Use: Yes Drug Use in Last 12 Months: Yes Recreational Drug Type: Reports: Methamphetamine, Oxycodone Other Recreational Drug Type: has not used for the last week Recreational Drug Use Frequency: Binges Recreational Drug Last Use: yesterday - Living Situation & Occupation Living situation: Reports: with Family ED ROS GENERAL - Review of Systems Review Of Systems: ROS reveals no pertinent complaints other than HPI. ED EXAM, GENERAL - Physical Exam Exam: See Below Exam Limited By: No Limitations General Appearance: Alert, WD/WN, Anxious, Mild Distress Eye Exam: Bilateral Eye: EOMI, Normal Inspection, PERRL Ears: Normal External Exam, Normal Canal, Hearing Grossly Normal, Normal TMs Nose: Normal Inspection, Normal Mucosa, No Blood Throat/Mouth: Normal Inspection, Normal Lips, Normal Teeth, Normal Gums, Normal Oropharynx, Normal Voice, No Airway Compromise Head: Atraumatic, Normocephalic Neck: Normal Inspection, Supple, Non-Tender, Full Range of Motion Respiratory/Chest: No Respiratory Distress, Lungs Clear, Normal Breath Sounds, No Accessory Muscle Use, Other (left upper chest pain) Cardiovascular: Normal Peripheral Pulses, Regular Rate, Rhythm, No Edema, No Gallop, No JVD, No Murmur, No Rub GI/Abdominal: Normal Bowel Sounds, Soft, Tender (diffuse generalized) (Male) Exam: Deferred Rectal (Males) Exam: Deferred Back Exam: Normal Inspection, Full Range of Motion, NT Extremities: Normal Inspection, Normal Range of Motion, Non-Tender, Normal Capillary Refill, No Pedal Edema Neurological: Alert, Oriented, CN II-XII Intact, Normal Cognition, Normal Gait, Normal Reflexes, No Motor/Sensory Deficits Psychiatric: Normal Affect, Normal Mood Skin Exam: Warm, Dry, Intact, Normal Color, No Rash Lymphatic: No Adenopathy Course - Vital Signs Last Recorded V/S: Last Vital Signs Temp 36.2 C 10/12/16 03:33 Pulse 100 10/12/16 04:06 Resp 22 H 10/12/16 04:06 BP 120/94 H 10/12/16 04:06 Pulse Ox 96 10/12/16 04:06 - Orders/Labs/Meds Orders: Active Orders 24 hr Category Date Time Status EKG Documentation Completion [RC] URGENT Care 10/12/16 03:38 Active Abdomen Pelvis w Cont [CT] Urgent Exams 10/12/16 04:32 Taken Chest 1V Frontal [CR] Urgent Exams 10/12/16 03:38 Taken Labs: Laboratory Tests 10/12/16 10/12/16 10/12/16 Range/Units 03:40 03:40 03:40 WBC (5.0-10.0) 10^3/uL RBC (4.6-6.2) 10^6/uL Hgb (14.0-18.0) g/dL Hct (40.0-54.0) % MCV (80-100) fL MCH (27.0-34.0) pg MCHC (33.0-35.0) g/dL Plt Count (150-450) 10^3/uL Neut % (Auto) (42.2-75.2) % Lymph % (Auto) (20.5-50.1) % [place] % (Auto) (2-8) % Eos % (Auto) (1.0-3.0) % Baso % (Auto) (0.0-1.0) % PT 11.9 (9.0-12.0) SEC INR 1.2 (0.9-1.2) D-Dimer, Quantitative 955 H (0-400) ng/mL Sodium (135-145) mmol/L Potassium (3.6-5.0) mmol/L Chloride (101-111) mmol/L Carbon Dioxide (21.0-31.0) mmol/L Anion Gap BUN (7-18) mg/dL Creatinine (0.6-1.3) mg/dL Est Cr Clr Drug Dosing mL/min Estimated GFR (MDRD) BUN/Creatinine Ratio Glucose (74-105) mg/dL Calcium (8.4-10.2) mg/dl Magnesium 1.7 L (1.8-2.5) mg/dL Total Bilirubin (0.2-1.0) mg/dL AST (10-42) IU/L ALT (10-60) IU/L Alkaline Phosphatase (42-121) IU/L Ammonia 24 (11-35) umol/L Troponin I (0.00-0.02) ng/ml B-Natriuretic Peptide (0-100) pg/ml Total Protein (6.7-8.2) g/dl Albumin (3.2-5.5) g/dl Globulin Albumin/Globulin Ratio Amylase 43 (28-100) U/L Lipase 16 L (22-51) U/L Urine Color (YELLOW) Urine Appearance (CLEAR) Urine pH (5.0-9.0) Ur Specific [place] (1.005-1.030) Urine Protein (NEGATIVE) Urine Glucose (UA) (NEGATIVE) Urine Ketones (NEGATIVE) Urine Occult Blood (NEGATIVE) Urine Nitrite (NEGATIVE) Urine Bilirubin (NEGATIVE) Urine Urobilinogen (0.2-1.0) mg/dL Ur Leukocyte Esterase (NEGATIVE) Urine RBC /HPF Urine WBC (0-5/HPF) /HPF Ur Epithelial Cells /HPF Urine Bacteria (0-FEW/HPF) /HPF Urine Mucus /LPF Urine Opiates Screen (NEGATIVE) Ur Oxycodone Screen (NEGATIVE) Urine Methadone Screen (NEGATIVE) Ur Barbiturates Screen (NEGATIVE) U Tricyclic Antidepress (NEGATIVE) Ur Phencyclidine Scrn (NEGATIVE) Ur Amphetamine Screen (NEGATIVE) U Methamphetamines Scrn (NEGATIVE) Urine MDMA Screen (NEGATIVE) U Benzodiazepines Scrn (NEGATIVE) Urine Cocaine Screen (NEGATIVE) U Marijuana (THC) Screen (NEGATIVE) 10/12/16 10/12/16 10/12/16 Range/Units 03:40 03:40 03:40 WBC 8.2 (5.0-10.0) 10^3/uL RBC 4.74 (4.6-6.2) 10^6/uL Hgb 13.4 L (14.0-18.0) g/dL Hct 41.3 (40.0-54.0) % MCV 87.1 (80-100) fL MCH 28.3 (27.0-34.0) pg MCHC 32.4 L (33.0-35.0) g/dL Plt Count 187 (150-450) 10^3/uL Neut % (Auto) 69.4 (42.2-75.2) % Lymph % (Auto) 15.9 L (20.5-50.1) % [place] % (Auto) 5.8 (2-8) % Eos % (Auto) 8.4 H (1.0-3.0) % Baso % (Auto) 0.5 (0.0-1.0) % PT (9.0-12.0) SEC INR (0.9-1.2) D-Dimer, Quantitative (0-400) ng/mL Sodium 142 (135-145) mmol/L Potassium 3.2 L (3.6-5.0) mmol/L Chloride 106 (101-111) mmol/L Carbon Dioxide 26.0 (21.0-31.0) mmol/L Anion Gap 13.2 BUN 13 (7-18) mg/dL Creatinine 0.6 (0.6-1.3) mg/dL Est Cr Clr Drug Dosing 148.93 mL/min Estimated GFR (MDRD) > 60 BUN/Creatinine Ratio 21.66 Glucose 112 H (74-105) mg/dL Calcium 8.8 (8.4-10.2) mg/dl Magnesium (1.8-2.5) mg/dL Total Bilirubin 1.5 H (0.2-1.0) mg/dL AST 20 (10-42) IU/L ALT 9 L (10-60) IU/L Alkaline Phosphatase 77 (42-121) IU/L Ammonia (11-35) umol/L Troponin I 0.04 H* (0.00-0.02) ng/ml B-Natriuretic Peptide 2860 H (0-100) pg/ml Total Protein 6.7 (6.7-8.2) g/dl Albumin 3.5 (3.2-5.5) g/dl Globulin 3.2 Albumin/Globulin Ratio 1.09 Amylase (28-100) U/L Lipase (22-51) U/L Urine Color (YELLOW) Urine Appearance (CLEAR) Urine pH (5.0-9.0) Ur Specific [place] (1.005-1.030) Urine Protein (NEGATIVE) Urine Glucose (UA) (NEGATIVE) Urine Ketones (NEGATIVE) Urine Occult Blood (NEGATIVE) Urine Nitrite (NEGATIVE) Urine Bilirubin (NEGATIVE) Urine Urobilinogen (0.2-1.0) mg/dL Ur Leukocyte Esterase (NEGATIVE) Urine RBC /HPF Urine WBC (0-5/HPF) /HPF Ur Epithelial Cells /HPF Urine Bacteria (0-FEW/HPF) /HPF Urine Mucus /LPF Urine Opiates Screen (NEGATIVE) Ur Oxycodone Screen (NEGATIVE) Urine Methadone Screen (NEGATIVE) Ur Barbiturates Screen (NEGATIVE) U Tricyclic Antidepress (NEGATIVE) Ur Phencyclidine Scrn (NEGATIVE) Ur Amphetamine Screen (NEGATIVE) U Methamphetamines Scrn (NEGATIVE) Urine MDMA Screen (NEGATIVE) U Benzodiazepines Scrn (NEGATIVE) Urine Cocaine Screen (NEGATIVE) U Marijuana (THC) Screen (NEGATIVE) 10/12/16 10/12/16 Range/Units 03:47 03:47 WBC (5.0-10.0) 10^3/uL RBC (4.6-6.2) 10^6/uL Hgb (14.0-18.0) g/dL Hct (40.0-54.0) % MCV (80-100) fL MCH (27.0-34.0) pg MCHC (33.0-35.0) g/dL Plt Count (150-450) 10^3/uL Neut % (Auto) (42.2-75.2) % Lymph % (Auto) (20.5-50.1) % [place] % (Auto) (2-8) % Eos % (Auto) (1.0-3.0) % Baso % (Auto) (0.0-1.0) % PT (9.0-12.0) SEC INR (0.9-1.2) D-Dimer, Quantitative (0-400) ng/mL Sodium (135-145) mmol/L Potassium (3.6-5.0) mmol/L Chloride (101-111) mmol/L Carbon Dioxide (21.0-31.0) mmol/L Anion Gap BUN (7-18) mg/dL Creatinine (0.6-1.3) mg/dL Est Cr Clr Drug Dosing mL/min Estimated GFR (MDRD) BUN/Creatinine Ratio Glucose (74-105) mg/dL Calcium (8.4-10.2) mg/dl Magnesium (1.8-2.5) mg/dL Total Bilirubin (0.2-1.0) mg/dL AST (10-42) IU/L ALT (10-60) IU/L Alkaline Phosphatase (42-121) IU/L Ammonia (11-35) umol/L Troponin I (0.00-0.02) ng/ml B-Natriuretic Peptide (0-100) pg/ml Total Protein (6.7-8.2) g/dl Albumin (3.2-5.5) g/dl Globulin Albumin/Globulin Ratio Amylase (28-100) U/L Lipase (22-51) U/L Urine Color Dark yellow (YELLOW) Urine Appearance Clear (CLEAR) Urine pH 5.5 (5.0-9.0) Ur Specific [place] >= 1.030 (1.005-1.030) Urine Protein >=300 H (NEGATIVE) Urine Glucose (UA) Negative (NEGATIVE) Urine Ketones Trace H (NEGATIVE) Urine Occult Blood Small H (NEGATIVE) Urine Nitrite Negative (NEGATIVE) Urine Bilirubin Small H (NEGATIVE) Urine Urobilinogen 1.0 (0.2-1.0) mg/dL Ur Leukocyte Esterase Negative (NEGATIVE) Urine RBC 5-10 H /HPF Urine WBC 0-5 (0-5/HPF) /HPF Ur Epithelial Cells Occasional /HPF Urine Bacteria Few (0-FEW/HPF) /HPF Urine Mucus Few H /LPF Urine Opiates Screen Positive H (NEGATIVE) Ur Oxycodone Screen Positive H (NEGATIVE) Urine Methadone Screen Negative (NEGATIVE) Ur Barbiturates Screen Negative (NEGATIVE) U Tricyclic Antidepress Negative (NEGATIVE) Ur Phencyclidine Scrn Negative (NEGATIVE) Ur Amphetamine Screen Negative (NEGATIVE) U Methamphetamines Scrn Negative (NEGATIVE) Urine MDMA Screen Negative (NEGATIVE) U Benzodiazepines Scrn Negative (NEGATIVE) Urine Cocaine Screen Negative (NEGATIVE) U Marijuana (THC) Screen Negative (NEGATIVE) Meds: Medications Discontinued Medications Generic Name Dose Route Start Last Admin Trade Name Walter PRN Reason Stop Dose Admin Furosemide 40 mg 10/12/16 04:39 10/12/16 04:42 Lasix IVPUSH 10/12/16 04:40 40 mg NOW ONE Administration Iopamidol 100 ml 10/12/16 04:33 10/12/16 04:54 Isovue-300 (61%) IVPUSH 10/12/16 04:34 100 ml ONETIME ONE Administration Lorazepam 1 mg 10/12/16 05:19 Ativan IVPUSH 10/12/16 05:20 ONETIME ONE Ondansetron HCl 4 mg 10/12/16 04:29 10/12/16 04:32 Zofran IV 10/12/16 04:30 4 mg ONETIME ONE Administration - Re-Assessments/Exams Free Text/Narrative Re-Assessment/Exam: 10/12/16 04:33 The patient reported increased nausea, abdominal and chest pain (pointing to his left shoulder). The patient was given Zofran for nausea and a CT of his abdomen was ordered. The patient asked for a shot of morphine, but was informed that his labs had come back with no changes from previous labs. No pain medications were ordered at this time. 10/12/16 04:42 Reviewing the patient's previous visits demonstrates that the patient has had 1 UDS that was negative for opiates (02/21/16) throughout the history of visits dating back to 2014. Departure - Departure Time of Disposition: 05:20 Disposition: Home, Self-Care 01 Condition: Fair Clinical Impression: Atypical chest pain Abdominal pain Qualifiers: Abdominal location: right upper quadrant Qualified Code(s): R10.11 - Right upper quadrant pain CHF (congestive heart failure) Qualifiers: Congestive heart failure type: unspecified congestive heart failure type Congestive heart failure chronicity: acute Qualified Code(s): I50.9 - Heart failure, unspecified Instructions: Nonspecific Chest Pain, [id number] Forms: ED Department Discharge Care Plan Goals: The patient was advised of the examination, lab, x-ray, EKG and CT results during the visit. The patient was given IV Lasix (40 mg) and IV Ativan (1 mg) while in the ED. The patient should increase his Lasix to 40 mg twice per day for the next 3 days. If the patient has any additional symptoms or concerns, the patient should follow-up with his primary care facility or return to the ED. - My Orders Last 24 Hours: My Active Orders 10/12/16 03:38 EKG Documentation Completion [RC] URGENT Chest 1V Frontal [CR] Urgent 10/12/16 04:32 Abdomen Pelvis w Cont [CT] Urgent - Assessment/Plan Last 24 Hours: My Active Orders 10/12/16 03:38 EKG Documentation Completion [RC] URGENT Chest 1V Frontal [CR] Urgent 10/12/16 04:32 Abdomen Pelvis w Cont [CT] Urgent
[2016-10-12 04:06] LABS: CHLORIDE,CL 106 mmol/L (101-111); SODIUM,NA 142 mmol/L (135-145)
[2016-10-12 04:07] VITALS: BP 120/94
[2016-10-12] MEDS ORDERED: Ondansetron 4 MG/2 ML SDV IV ONE (04:29)
[2016-10-12] MEDS ORDERED: Iopamidol 612 MG/ML 100 ML Bottle IVPUSH ONE (04:33)
[2016-10-12] MEDS ORDERED: Furosemide 40 MG/4 ML VIAL IVPUSH ONE (04:39)
[2016-10-12] MEDS ORDERED: LORazepam 2 MG/ML Syringe IVPUSH ONE (05:19)
--- NOTE | 2016-10-14 09:40 | EKG ---
10/12/2016- MANNIE MEREDITH - EKG per my reading shows sinus rhythm at a rate of 99 with intraventricular conduction delay MODL /[id number]
== END 2016-10-12 05:29 | disposition home or self-care (01) ==
LOC: DL.ED 03:32
DX: I11.0 Hypertensive heart disease with heart failure (principal); I50.9 Heart failure, unspecified; R10.11 Right upper quadrant pain; K21.9 Gastro-esophageal reflux disease without esophagitis; F17.210 Nicotine dependence, cigarettes, uncomplicated; I42.9 Cardiomyopathy, unspecified; R07.89 Other chest pain; Z79.899 Other long term (current) drug therapy
CPT/HCPCS: 36415; 71010; 74177; 80053; 80305; 81001; 82140; 82150; 83690; 83735; 83880; 84484; 85025; 85379; 85610; 93005; 96374; 96375; 99285; J1940; J2060; J2405; Q9967

== ENCOUNTER 2016-12-09 07:32 | Observation (INO) | payer MEDICAID, OTHER ==
--- NOTE | 2016-12-09 08:00 | EDM.PDOC ---
ED HPI GENERAL MEDICAL PROBLEM - General Chief Complaint: Respiratory Problem Stated Complaint: BY AMBULANCE Time Seen by Provider: 12/09/16 07:45 Source of Information: Reports: Patient History Limitations: Reports: No Limitations - History of Present Illness INITIAL COMMENTS - FREE TEXT/NARRATIVE: This 51 yo male patient reports to the ED by [facility] with a 2-3 day history of not feeling well. The patient reports he has not been able to take any of his medications over the past 3 days due to throwing up all of his medications. The patient reports he has not been seen by his primary care facility and has not attempted to be seen. The patient reports he did drink some alcohol last night, but denies any drug use later admits to using meth 4 days ago. EMS started an IV and gave the patient Zofran prior to coming to the ED. Onset: Gradual Onset Date: 12/13/16 Duration: Constant, Getting Worse Location: Reports: Chest (left sided), Abdomen (diffuse) Quality: Reports: Ache, Dull Severity: Moderate Improves with: Reports: None Worsens with: Reports: None Context: Reports: Other Associated Symptoms: Reports: Cough, Nausea/Vomiting Left Abdomen Pain Score (Numeric/FACES): 7 - Related Data Allergies Allergy/AdvReac Type Severity Reaction Status Date / Time No Known Allergies Allergy Verified 09/13/16 09:52 Home Meds: Home Meds Lisinopril 20 mg PO DAILY 07/17/14 [History] Carvedilol [Coreg] 6.25 mg PO BIDMEALS 10/18/15 [History] Furosemide [Lasix] 40 mg PO DAILY 10/18/15 [History] Spironolactone [Aldactone] 25 mg PO DAILY 10/18/15 [History] Past Medical History - Past Health History Medical/Surgical History: Denies Medical/Surgical History HEENT History: Reports: None Cardiovascular History: Reports: Cardiomyopathy, Heart Failure, Hypertension Respiratory History: Reports: SOB Gastrointestinal History: Reports: GERD Genitourinary History: Reports: Other (See Below) Other Genitourinary History: liver issues r/t ETOH Musculoskeletal History: Reports: Other (See Below) Other Musculoskeletal History: torn left and right upper arm tendon Neurological History: Reports: None Psychiatric History: Reports: Anxiety Endocrine/Metabolic History: Reports: None Hematologic History: Reports: None Immunologic History: Reports: None Oncologic (Cancer) History: Reports: None Dermatologic History: Reports: None - Infectious Disease History Infectious Disease History: Reports: None - Past Surgical History Cardiovascular Surgical History: Reports: Percutaneous Transluminal Angioplasty Social & Family History - Family History Family Medical History: Noncontributory Cardiac: Reports: Hypertension Other Cardiac Family History: Dad and paternal grandmother have hypertension. Respiratory: Reports: Asthma Other Respiratory Family Hisory: Mom and dad have asthma. Endocrine/Metabolic: Reports: Diabetes, Type I Other Endocrine/Metabolic Family History: Dad and paternal grandmother have type I diabetes. - Tobacco Use Smoking Status *Q: Current Every Day Smoker Years of Tobacco use: 10 Packs/Tins Daily: 0.5 Used Tobacco, but Quit: No Second Hand Smoke Exposure: Yes - Caffeine Use Caffeine Use: Reports: Coffee, Soda, Tea - Alcohol Use Days Per Week of Alcohol Use: 3 Number of Drinks Per Day: 12 Total Drinks Per Week: 36 - Recreational Drug Use Recreational Drug Use: Yes Drug Use in Last 12 Months: Yes Recreational Drug Type: Reports: Methamphetamine, Oxycodone Other Recreational Drug Type: has not used for the last week Recreational Drug Use Frequency: Binges Recreational Drug Last Use: yesterday - Living Situation & Occupation Living situation: Reports: with Family ED ROS GENERAL - Review of Systems Review Of Systems: ROS reveals no pertinent complaints other than HPI. ED EXAM, GENERAL - Physical Exam Exam: See Below Exam Limited By: No Limitations General Appearance: Alert, WD/WN, Moderate Distress Eye Exam: Bilateral Eye: EOMI, Normal Inspection, PERRL Ears: Normal External Exam, Normal Canal, Hearing Grossly Normal, Normal TMs Nose: Normal Inspection, Normal Mucosa, No Blood Throat/Mouth: Normal Inspection, Normal Lips, Normal Teeth, Normal Gums, Normal Oropharynx, Normal Voice, No Airway Compromise Head: Atraumatic, Normocephalic Neck: Normal Inspection, Supple, Non-Tender, Full Range of Motion Respiratory/Chest: No Respiratory Distress, No Accessory Muscle Use, Rhonchi ( fine left sided), Other (left sided chest tenderness) Cardiovascular: Normal Peripheral Pulses, Regular Rate, Rhythm, No Edema, No Gallop, No JVD, No Rub, Systolic Murmur (faint) GI/Abdominal: Normal Bowel Sounds, Soft, No Abnormal Bruit, No Mass, Pelvis Stable, Tender (left sided) (Male) Exam: Deferred Rectal (Males) Exam: Deferred Back Exam: Normal Inspection, Full Range of Motion, NT Extremities: Normal Inspection, Normal Range of Motion, Non-Tender, Normal Capillary Refill, No Pedal Edema Neurological: Alert, Oriented, CN II-XII Intact, Normal Cognition Psychiatric: Normal Affect, Normal Mood Skin Exam: Warm, Dry, Intact, Normal Color, No Rash Lymphatic: No Adenopathy Course - Vital Signs Last Recorded V/S: Last Vital Signs Temp 37.1 C 12/09/16 07:58 Pulse 108 H 12/09/16 08:21 Resp 13 12/09/16 07:58 BP 130/103 H 12/09/16 08:21 Pulse Ox 16 L 12/09/16 08:21 - Orders/Labs/Meds Orders: Active Orders 24 hr Category Date Time Status EKG Documentation Completion [RC] URGENT Care 12/09/16 08:36 Active CULTURE BLOOD [BC] Stat Lab 12/09/16 08:04 Received CULTURE BLOOD [BC] Stat Lab 12/09/16 08:09 Results Blood Culture x2 Reflex Set [OM.PC] Stat Oth 12/09/16 07:49 Ordered Labs: Laboratory Tests 12/09/16 12/09/16 12/09/16 Range/Units 08:04 08:04 08:04 WBC 7.5 (5.0-10.0) 10^3/uL RBC 4.95 (4.6-6.2) 10^6/uL Hgb 14.4 (14.0-18.0) g/dL Hct 44.3 (40.0-54.0) % MCV 89.5 (80-100) fL MCH 29.1 (27.0-34.0) pg MCHC 32.5 L (33.0-35.0) g/dL Plt Count 208 (150-450) 10^3/uL Neut % (Auto) 76.2 H (42.2-75.2) % Lymph % (Auto) 14.6 L (20.5-50.1) % [place] % (Auto) 8.4 H (2-8) % Eos % (Auto) 0.5 L (1.0-3.0) % Baso % (Auto) 0.3 (0.0-1.0) % Sodium 141 (135-145) mmol/L Potassium 3.7 (3.6-5.0) mmol/L Chloride 105 (101-111) mmol/L Carbon Dioxide 25.0 (21.0-31.0) mmol/L Anion Gap 14.7 BUN 12 (7-18) mg/dL Creatinine 0.8 (0.6-1.3) mg/dL Est Cr Clr Drug Dosing TNP Estimated GFR (MDRD) > 60 BUN/Creatinine Ratio 15.00 Glucose 109 H (74-105) mg/dL Lactic Acid (0.5-2.2) mmol/L Calcium 8.9 (8.4-10.2) mg/dl Magnesium 2.0 (1.8-2.5) mg/dL Total Bilirubin 2.2 H (0.2-1.0) mg/dL AST 49 H (10-42) IU/L ALT 35 (10-60) IU/L Alkaline Phosphatase 85 (42-121) IU/L Ammonia 14 (11-35) umol/L Troponin I (0.00-0.02) ng/ml B-Natriuretic Peptide 3960 H (0-100) pg/ml Total Protein 7.5 (6.7-8.2) g/dl Albumin 3.9 (3.2-5.5) g/dl Globulin 3.6 Albumin/Globulin Ratio 1.08 Amylase 35 (28-100) U/L Lipase 18 L (22-51) U/L Urine Color (YELLOW) Urine Appearance (CLEAR) Urine pH (5.0-9.0) Ur Specific [place] (1.005-1.030) Urine Protein (NEGATIVE) Urine Glucose (UA) (NEGATIVE) Urine Ketones (NEGATIVE) Urine Occult Blood (NEGATIVE) Urine Nitrite (NEGATIVE) Urine Bilirubin (NEGATIVE) Urine Urobilinogen (0.2-1.0) mg/dL Ur Leukocyte Esterase (NEGATIVE) Urine RBC /HPF Urine WBC (0-5/HPF) /HPF Ur Epithelial Cells /HPF Amorphous Sediment (0/HPF) /HPF Urine Bacteria (0-FEW/HPF) /HPF Hyaline Casts /LPF Urine Mucus /LPF Urine Opiates Screen (NEGATIVE) Ur Oxycodone Screen (NEGATIVE) Urine Methadone Screen (NEGATIVE) Acetaminophen < 10 Ur Barbiturates Screen (NEGATIVE) U Tricyclic Antidepress (NEGATIVE) Ur Phencyclidine Scrn (NEGATIVE) Ur Amphetamine Screen (NEGATIVE) U Methamphetamines Scrn (NEGATIVE) Urine MDMA Screen (NEGATIVE) U Benzodiazepines Scrn (NEGATIVE) Urine Cocaine Screen (NEGATIVE) U Marijuana (THC) Screen (NEGATIVE) Ethyl Alcohol < 5 mg/dL 12/09/16 12/09/16 12/09/16 Range/Units 08:04 08:04 08:15 WBC (5.0-10.0) 10^3/uL RBC (4.6-6.2) 10^6/uL Hgb (14.0-18.0) g/dL Hct (40.0-54.0) % MCV (80-100) fL MCH (27.0-34.0) pg MCHC (33.0-35.0) g/dL Plt Count (150-450) 10^3/uL Neut % (Auto) (42.2-75.2) % Lymph % (Auto) (20.5-50.1) % [place] % (Auto) (2-8) % Eos % (Auto) (1.0-3.0) % Baso % (Auto) (0.0-1.0) % Sodium (135-145) mmol/L Potassium (3.6-5.0) mmol/L Chloride (101-111) mmol/L Carbon Dioxide (21.0-31.0) mmol/L Anion Gap BUN (7-18) mg/dL Creatinine (0.6-1.3) mg/dL Est Cr Clr Drug Dosing Estimated GFR (MDRD) BUN/Creatinine Ratio Glucose (74-105) mg/dL Lactic Acid 2.5 H (0.5-2.2) mmol/L Calcium (8.4-10.2) mg/dl Magnesium (1.8-2.5) mg/dL Total Bilirubin (0.2-1.0) mg/dL AST (10-42) IU/L ALT (10-60) IU/L Alkaline Phosphatase (42-121) IU/L Ammonia (11-35) umol/L Troponin I 0.07 H* (0.00-0.02) ng/ml B-Natriuretic Peptide (0-100) pg/ml Total Protein (6.7-8.2) g/dl Albumin (3.2-5.5) g/dl Globulin Albumin/Globulin Ratio Amylase (28-100) U/L Lipase (22-51) U/L Urine Color (YELLOW) Urine Appearance (CLEAR) Urine pH (5.0-9.0) Ur Specific [place] (1.005-1.030) Urine Protein (NEGATIVE) Urine Glucose (UA) (NEGATIVE) Urine Ketones (NEGATIVE) Urine Occult Blood (NEGATIVE) Urine Nitrite (NEGATIVE) Urine Bilirubin (NEGATIVE) Urine Urobilinogen (0.2-1.0) mg/dL Ur Leukocyte Esterase (NEGATIVE) Urine RBC /HPF Urine WBC (0-5/HPF) /HPF Ur Epithelial Cells /HPF Amorphous Sediment (0/HPF) /HPF Urine Bacteria (0-FEW/HPF) /HPF Hyaline Casts /LPF Urine Mucus /LPF Urine Opiates Screen Positive H (NEGATIVE) Ur Oxycodone Screen Positive H (NEGATIVE) Urine Methadone Screen Negative (NEGATIVE) Acetaminophen Ur Barbiturates Screen Negative (NEGATIVE) U Tricyclic Antidepress Negative (NEGATIVE) Ur Phencyclidine Scrn Negative (NEGATIVE) Ur Amphetamine Screen Negative (NEGATIVE) U Methamphetamines Scrn Positive H (NEGATIVE) Urine MDMA Screen Negative (NEGATIVE) U Benzodiazepines Scrn Negative (NEGATIVE) Urine Cocaine Screen Negative (NEGATIVE) U Marijuana (THC) Screen Negative (NEGATIVE) Ethyl Alcohol mg/dL 12/09/16 Range/Units 08:15 WBC (5.0-10.0) 10^3/uL RBC (4.6-6.2) 10^6/uL Hgb (14.0-18.0) g/dL Hct (40.0-54.0) % MCV (80-100) fL MCH (27.0-34.0) pg MCHC (33.0-35.0) g/dL Plt Count (150-450) 10^3/uL Neut % (Auto) (42.2-75.2) % Lymph % (Auto) (20.5-50.1) % [place] % (Auto) (2-8) % Eos % (Auto) (1.0-3.0) % Baso % (Auto) (0.0-1.0) % Sodium (135-145) mmol/L Potassium (3.6-5.0) mmol/L Chloride (101-111) mmol/L Carbon Dioxide (21.0-31.0) mmol/L Anion Gap BUN (7-18) mg/dL Creatinine (0.6-1.3) mg/dL Est Cr Clr Drug Dosing Estimated GFR (MDRD) BUN/Creatinine Ratio Glucose (74-105) mg/dL Lactic Acid (0.5-2.2) mmol/L Calcium (8.4-10.2) mg/dl Magnesium (1.8-2.5) mg/dL Total Bilirubin (0.2-1.0) mg/dL AST (10-42) IU/L ALT (10-60) IU/L Alkaline Phosphatase (42-121) IU/L Ammonia (11-35) umol/L Troponin I (0.00-0.02) ng/ml B-Natriuretic Peptide (0-100) pg/ml Total Protein (6.7-8.2) g/dl Albumin (3.2-5.5) g/dl Globulin Albumin/Globulin Ratio Amylase (28-100) U/L Lipase (22-51) U/L Urine Color [place] (YELLOW) Urine Appearance Slightly cloudy (CLEAR) Urine pH 5.5 (5.0-9.0) Ur Specific [place] >= 1.030 (1.005-1.030) Urine Protein >=300 H (NEGATIVE) Urine Glucose (UA) 100 H (NEGATIVE) Urine Ketones Negative (NEGATIVE) Urine Occult Blood Moderate H (NEGATIVE) Urine Nitrite Negative (NEGATIVE) Urine Bilirubin Moderate H (NEGATIVE) Urine Urobilinogen 4.0 H (0.2-1.0) mg/dL Ur Leukocyte Esterase Negative (NEGATIVE) Urine RBC 10-20 H /HPF Urine WBC 0-5 (0-5/HPF) /HPF Ur Epithelial Cells Moderate H /HPF Amorphous Sediment Moderate (0/HPF) /HPF Urine Bacteria Few (0-FEW/HPF) /HPF Hyaline Casts Few H /LPF Urine Mucus Many H /LPF Urine Opiates Screen (NEGATIVE) Ur Oxycodone Screen (NEGATIVE) Urine Methadone Screen (NEGATIVE) Acetaminophen Ur Barbiturates Screen (NEGATIVE) U Tricyclic Antidepress (NEGATIVE) Ur Phencyclidine Scrn (NEGATIVE) Ur Amphetamine Screen (NEGATIVE) U Methamphetamines Scrn (NEGATIVE) Urine MDMA Screen (NEGATIVE) U Benzodiazepines Scrn (NEGATIVE) Urine Cocaine Screen (NEGATIVE) U Marijuana (THC) Screen (NEGATIVE) Ethyl Alcohol mg/dL Meds: Medications Discontinued Medications Generic Name Dose Route Start Last Admin Trade Name Walter PRN Reason Stop Dose Admin Furosemide 40 mg 12/09/16 08:50 12/09/16 09:00 Lasix IVPUSH 12/09/16 08:51 40 mg NOW ONE Administration Departure - Departure Time of Disposition: 09:12 Disposition: Admitted As Inpatient 68 Condition: Fair Clinical Impression: Acute exacerbation of CHF (congestive heart failure) Qualifiers: Congestive heart failure type: unspecified congestive heart failure type Qualified Code(s): I50.9 - Heart failure, unspecified Gastritis Qualifiers: Gastritis type: other gastritis Chronicity: acute Gastritis bleeding: presence of bleeding unspecified Qualified Code(s): K29.00 - Acute gastritis without bleeding - Discharge Information Care Plan Goals: Discussed the examination, lab, EKG and x-ray results with Dr. Norris. Dr. Norris accepted the patient for continued evaluation and further management as an inpatient at [facility]. - My Orders Last 24 Hours: My Active Orders 12/09/16 07:49 Blood Culture x2 Reflex Set [OM.PC] Stat 12/09/16 08:04 CULTURE BLOOD [BC] Stat 12/09/16 08:09 CULTURE BLOOD [BC] Stat 12/09/16 08:36 EKG Documentation Completion [RC] URGENT - Assessment/Plan Last 24 Hours: My Active Orders 12/09/16 07:49 Blood Culture x2 Reflex Set [OM.PC] Stat 12/09/16 08:04 CULTURE BLOOD [BC] Stat 12/09/16 08:09 CULTURE BLOOD [BC] Stat 12/09/16 08:36 EKG Documentation Completion [RC] URGENT
[2016-12-09 08:35] LABS: CHLORIDE,CL 105 mmol/L (101-111); SODIUM,NA 141 mmol/L (135-145)
[2016-12-09 08:36] LABS: ACETAMINOPHEN < 10
--- NOTE | 2016-12-09 08:43 | CR ---
Clinical history: 51-year-old male in the emergency department with shortness of breath. Interpretation: Chronically enlarged heart with prominent pulmonary artery segments as noted back on 12 October 2016 ex am. Some cephalization of flow but no new signs of alveolar edema or dependent pleural fluid accumulation . (Cardiac pacemaker leads intact and unchanged) No new signs of lung mass, hilar lymphadenopathy or focal lobar pneumonia. No atelectasis/collapse. CONCLUSION: Abnormal but no acute new cardiopulmonary abnormality since 12 October exam.
[2016-12-09] MEDS ORDERED: Furosemide 40 MG/4 ML VIAL IVPUSH ONE (08:50)
[2016-12-09] MEDS ORDERED: traZODone 50 MG Tab PO PRN (09:50)
[2016-12-09] MEDS ORDERED: hydrOXYzine HCl 25 MG Tab PO PRN (09:51)
[2016-12-09] MEDS ORDERED: Promethazine 25 MG/ML SDV IM PRN (09:55)
[2016-12-09] MEDS ORDERED: Ondansetron 4 MG Tab.DIS PO PRN (09:55)
[2016-12-09] MEDS ORDERED: Ondansetron 4 MG/2 ML SDV IVPUSH PRN (09:55)
[2016-12-09] MEDS ORDERED: Acetaminophen 325 MG Tab PO PRN (09:55)
[2016-12-09] MEDS ORDERED: Ibuprofen 400 MG Tab PO PRN (09:55)
[2016-12-09] MEDS ORDERED: Promethazine 25 MG Tab PO PRN (09:55)
--- NOTE | 2016-12-09 10:16 | PCM.HP ---
H&P History of Present Illness - General Date of Service: 12/09/16 Admit Problem/Dx: Admission Diagnosis/Problem Admission Diagnosis/Problem Nausea Source of Information: Patient - History of Present Illness Initial Comments - Free Text/Narative: 51-year-old gentleman with a history of all call abuse, alcoholic (non ischemic ) cardiomyopathy with systolic and diastolic dysfunction with ejection fraction less than 25%, alcoholic liver cirrhosis, on chronic gastritis, hypertension. The patient has an implanted biventricular pacemaker and defibrillator which was recently interrogated. The patient continues to with amphetamine, opiate, alcohol use. Presented with shortness of breath that has been increasing in the past 3 days. Associated with nausea, abdominal pain after vomiting. No diarrhea. No fever, no apparent sick contact. Left Abdomen Pain Score (Numeric/FACES): 7 - Related Data Allergies/Adverse Reactions: Allergies Allergy/AdvReac Type Severity Reaction Status Date / Time No Known Allergies Allergy Verified 12/09/16 10:13 Home Medications: Home Meds Lisinopril 20 mg PO DAILY 07/17/14 [History] Carvedilol [Coreg] 6.25 mg PO BIDMEALS 10/18/15 [History] Furosemide [Lasix] 40 mg PO DAILY 10/18/15 [History] Spironolactone [Aldactone] 25 mg PO DAILY 10/18/15 [History] Past Medical History - Past Health History Medical/Surgical History: Denies Medical/Surgical History HEENT History: Reports: None Cardiovascular History: Reports: Cardiomyopathy, Heart Failure, Hypertension Respiratory History: Reports: SOB Gastrointestinal History: Reports: GERD Genitourinary History: Reports: Other (See Below) Other Genitourinary History: liver issues r/t ETOH Musculoskeletal History: Reports: Other (See Below) Other Musculoskeletal History: torn left and right upper arm tendon Neurological History: Reports: None Psychiatric History: Reports: Addiction, Anxiety Endocrine/Metabolic History: Reports: None Hematologic History: Reports: None Immunologic History: Reports: None Oncologic (Cancer) History: Reports: None Dermatologic History: Reports: None - Infectious Disease History Infectious Disease History: Reports: None - Past Surgical History Head Surgeries/Procedures: Reports: None Cardiovascular Surgical History: Reports: Percutaneous Transluminal Angioplasty Social & Family History - Family History Family Medical History: Noncontributory Cardiac: Reports: Hypertension Other Cardiac Family History: Dad and paternal grandmother have hypertension. Respiratory: Reports: Asthma Other Respiratory Family Hisory: Mom and dad have asthma. Endocrine/Metabolic: Reports: Diabetes, Type I Other Endocrine/Metabolic Family History: Dad and paternal grandmother have type I diabetes. - Tobacco Use Smoking Status *Q: Current Every Day Smoker Years of Tobacco use: 10 Packs/Tins Daily: 0.5 Used Tobacco, but Quit: No Second Hand Smoke Exposure: Yes - Caffeine Use Caffeine Use: Reports: Coffee, Energy Drinks, Soda, Tea - Alcohol Use Days Per Week of Alcohol Use: 3 Number of Drinks Per Day: 12 Total Drinks Per Week: 36 Date of Last Drink: 12/08/16 Time of Last Drink: 18:00 - Recreational Drug Use Recreational Drug Use: Yes Drug Use in Last 12 Months: Yes Recreational Drug Type: Reports: Methamphetamine, Oxycodone Other Recreational Drug Type: has not used for the last week Recreational Drug Use Frequency: Weekly Recreational Drug Last Use: yesterday - Living Situation & Occupation Living situation: Reports: with Family H&P Review of Systems - Review of Systems: Review Of Systems: See Below General: Denies: Fever Pulmonary: Reports: Shortness of Breath, Cough. Denies: Wheezing Cardiovascular: Reports: Chest Pain. Denies: Edema Gastrointestinal: Reports: Abdominal Pain, Nausea, Vomiting Psychiatric: Denies: Confusion Exam - Exam Exam: See Below - Vital Signs Vital Signs: Last Vital Signs Temp 37.2 C 12/09/16 09:46 Pulse 114 H 12/09/16 09:46 Resp 18 12/09/16 09:46 BP 129/99 H 12/09/16 09:46 Pulse Ox 99 12/09/16 09:55 Weight: 87.543 kg - Exam General: Alert, Oriented Neck: Supple Lungs: Normal Respiratory Effort, Crackles (Basilar). No: Wheezing Cardiovascular: Regular Rate, Regular Rhythm GI/Abdominal Exam: Normal Bowel Sounds, Soft, Non-Tender, No Distention Extremities: No Pedal Edema Skin: Warm, Dry Neuro Extensive - Mental Status: Alert, Oriented x3 Psychiatric: Alert, Normal Affect, Normal Mood. No: Anxious, Agitated, Withdrawal Symptoms - Patient Data Lab Results Last 24 hrs: EKG per my reading shows sinus rhythm at a rate of 107 with nonspecific intraventricular conduction delay Result Diagrams: 12/09/16 08:04 12/09/16 08:04 *Q Meaningful Use (ADM) - VTE *Q VTE Criteria *Q: - Stroke *Q Stroke Criteria *Q: - AMI *Q AMI Criteria *Q: - Problem List (1) Acute exacerbation of congestive heart failure SNOMED Code(s): 86212338 ICD Code: I50.9 - HEART FAILURE, UNSPECIFIED Status: Acute Current Visit : Yes Qualifiers: Congestive heart failure type: unspecified congestive heart failure type Qualified Code(s): I50.9 - Heart failure, unspecified (2) Gastritis SNOMED Code(s): 3570552 ICD Code: K29.70 - GASTRITIS, UNSPECIFIED, WITHOUT BLEEDING Status: Acute Current Visit: Yes Qualifiers: Gastritis type: other gastritis Chronicity: acute Gastritis bleeding: presence of bleeding unspecified Qualified Code(s): K29.00 - Acute gastritis without bleeding (3) Polysubstance abuse SNOMED Code(s): 662470546 ICD Code: F19.10 - OTHER PSYCHOACTIVE SUBSTANCE ABUSE, UNCOMPLICATED Status : Acute Current Visit: No (4) Shortness of breath SNOMED Code(s): 302139668 ICD Code: R06.02 - SHORTNESS OF BREATH Status: Acute Current Visit: No Problem List Initiated/Reviewed/Updated: Yes Orders Last 24hrs: Active Orders 24 hr Category Date Time Status Patient Status [ADT] Routine ADT 12/09/16 09:55 Active Antiembolic Devices [RC] PER UNIT ROUTINE Care 12/09/16 09:58 Active Oxygen Therapy [RC] PRN Care 12/09/16 09:55 Active Peripheral IV Care [RC] . DIRECTED Care 12/09/16 09:58 Active Telemetry Monitoring [Cardiac Monitoring] [RC] Care 12/09/16 09:55 Active Up With Assistance [RC] ASDIRECTED Care 12/09/16 09:55 Active VTE/DVT Education [RC] PER UNIT ROUTINE Care 12/09/16 09:55 Active Vital Signs [RC] Q4H Care 12/09/16 09:55 Active 2 Gram Sodium Diet [DIET] Diet 12/09/16 Lunch Active BASIC METABOLIC PANEL,BMP [CHEM] AM Lab 12/10/16 05:15 Ordered CBC WITH AUTO DIFF [HEME] AM Lab 12/10/16 05:15 Ordered TROPONIN I [CHEM] AM Lab 12/10/16 05:11 Ordered TROPONIN I [CHEM] Routine Lab 12/09/16 15:00 Ordered Acetaminophen [Tylenol] Med 12/09/16 09:55 Active 650 mg PO Q4H PRN Carvedilol [Coreg] Med 12/09/16 18:00 Active 6.25 mg PO BIDMEALS Furosemide [Lasix] Med 12/09/16 09:00 Active 40 mg PO DAILY Heparin Sodium Med 12/09/16 14:00 Active 5,000 units SUBCUT Q8HR Ibuprofen [Motrin] Med 12/09/16 09:55 Active 400 mg PO Q6H PRN Lisinopril [Prinivil] Med 12/09/16 10:00 Active 20 mg PO DAILY Omeprazole Med 12/10/16 06:00 Active 20 mg PO ACBREAKFAST Ondansetron [Zofran ODT] Med 12/09/16 09:55 Active 4 mg PO Q6H PRN Ondansetron [Zofran] Med 12/09/16 09:55 Active 4 mg IVPUSH Q6H PRN Promethazine [Phenergan] Med 12/09/16 09:55 Active 12.5 mg IM Q6H PRN Promethazine [Phenergan] Med 12/09/16 09:55 Active 25 mg PO Q6H PRN Sodium Chloride 0.9% [Saline Flush] Med 12/09/16 09:55 Active 10 ml FLUSH ASDIRECTED PRN Spironolactone [Aldactone] Med 12/09/16 10:00 Active 25 mg PO DAILY hydrOXYzine HCl [Atarax] Med 12/09/16 09:51 Active 25 mg PO Q6H PRN traZODone Med 12/09/16 09:50 Active 50 mg PO BEDTIME PRN Antiembolic Hose [OM.PC] Per Unit Routine Oth 12/09/16 09:57 Ordered Peripheral IV Insertion Adult [OM.PC] Routine Oth 12/09/16 09:55 Ordered Saline Lock Insert [OM.PC] Routine Oth 12/09/16 09:55 Ordered Resuscitation Status Routine Resus Stat 12/09/16 09:55 Ordered Medication Orders Acetaminophen (Tylenol) 650 mg PO Q4H PRN PRN Reason: Pain (Mild 1-3)/fever Carvedilol (Coreg) 6.25 mg PO BIDMEALS [place] Furosemide (Lasix) 40 mg PO DAILY [facility] Heparin Sodium (Porcine) (Heparin Sodium) 5,000 units SUBCUT Q8HR [place] Hydroxyzine HCl (Atarax) 25 mg PO Q6H PRN PRN Reason: Anxiety Ibuprofen (Motrin) 400 mg PO Q6H PRN PRN Reason: Pain (mild 1-3) Lisinopril (Prinivil) 20 mg PO DAILY [facility] Omeprazole (Omeprazole) 20 mg PO ACBREAKFAST [facility] Ondansetron HCl (Zofran Odt) 4 mg PO Q6H PRN PRN Reason: nausea, able to take PO Ondansetron HCl (Zofran) 4 mg IVPUSH Q6H PRN PRN Reason: Nausea/Vomiting Promethazine HCl (Phenergan) 25 mg PO Q6H PRN PRN Reason: nausea, able to take PO Promethazine HCl (Phenergan) 12.5 mg IM Q6H PRN PRN Reason: Nausea/Vomiting Sodium Chloride (Saline Flush) 10 ml FLUSH ASDIRECTED PRN PRN Reason: Keep Vein Open Spironolactone (Aldactone) 25 mg PO DAILY [facility] Trazodone HCl (Trazodone) 50 mg PO BEDTIME PRN PRN Reason: Sleep Assessment/Plan Comment:: 51-year-old gentleman with a history of all call abuse, alcoholic (non ischemic ) cardiomyopathy with systolic and diastolic dysfunction with ejection fraction less than 25%, alcoholic liver cirrhosis, on chronic gastritis, hypertension. The patient has an implanted biventricular pacemaker and defibrillator which was recently interrogated. The patient continues to with amphetamine, opiate, alcohol use. Presented with shortness of breath that has been increasing in the past 3 days. Associated with nausea, abdominal pain after vomiting. No diarrhea. Nausea, vomiting In the setting of a history of on chronic gastritis. The patient has been drinking all call about half a pint a day prior to admission. Will use antiemetics, start proton pump inhibitor. Elevated troponin This is mildly elevated, likely due to nonischemic cardiomyopathy. Will monitor on telemetry for arrhythmia, repeat troponins. Nonischemic cardiomyopathy Will continue treatment with Coreg, lisinopril, diuretics Acute on Chronic systolic and diastolic congestive heart failure Last ejection fraction less than 25% The patient received a dose of IV Lasix. I will continue oral Lasix and spironolactone. Continue Coreg and lisinopril. Anxiety Continue trazodone for sleep, hydroxyzine as needed Try not to escalate habit-forming drugs. Alcoholic liver cirrhosis Elevated bilirubin, Alcohol and amphetamine cessation was discussed Elevated lactic acid Likely relates to cardiomyopathy and liver cirrhosis I do not think that the patient is septic Blood cultures have been drawn DVT prophylaxis will be with subcutaneous heparin
[2016-12-09] MEDS: Furosemide 40 MG Tab PO SCH (10:30)
[2016-12-09] MEDS: Spironolactone 25 MG Tab PO SCH (10:30)
[2016-12-09] MEDS: Lisinopril 20 MG Tab PO SCH (10:30)
[2016-12-09] MEDS: LORazepam 2 MG/ML Syringe IVPUSH PRN ×2 (13:10→21:46)
[2016-12-09] MEDS: Heparin Sodium 5,000 Units/ML Vial SUBCUT SCH ×2 (14:34→22:16)
[2016-12-09] MEDS: Carvedilol 6.25 MG Tab PO SCH (17:22)
[2016-12-09] MEDS: Sodium Chloride 0.9% 10 ML Syringe FLUSH PRN ×2 (21:45→21:50)
[2016-12-10] MEDS ORDERED: Omeprazole 20 MG Cap.CR PO SCH (06:00)
[2016-12-10] MEDS: Heparin Sodium 5,000 Units/ML Vial SUBCUT SCH ×2 (06:25→14:37)
[2016-12-10] MEDS: LORazepam 1 MG Tab PO PRN ×2 (06:26→12:45)
[2016-12-10 07:09] LABS: CHLORIDE,CL 107 mmol/L (101-111); SODIUM,NA 140 mmol/L (135-145)
[2016-12-10] MEDS: Lisinopril 20 MG Tab PO SCH (09:04)
[2016-12-10] MEDS: Furosemide 40 MG Tab PO SCH (09:04)
[2016-12-10] MEDS: Spironolactone 25 MG Tab PO SCH (09:05)
[2016-12-10] MEDS: Carvedilol 6.25 MG Tab PO SCH (09:05)
--- NOTE | 2016-12-10 12:05 | PCM.DCSUM1 ---
Discharge Summary - Hospital Course HPI Initial Comments: 51-year-old gentleman with a history of all call abuse, alcoholic (non ischemic ) cardiomyopathy with systolic and diastolic dysfunction with ejection fraction less than 25%, alcoholic liver cirrhosis, on chronic gastritis, hypertension. The patient has an implanted biventricular pacemaker and defibrillator which was recently interrogated. The patient continues to with amphetamine, opiate, alcohol use. Presented with shortness of breath that has been increasing in the past 3 days. Associated with nausea, abdominal pain after vomiting. No diarrhea. Nausea, vomiting In the setting of a history of on chronic gastritis. The patient has been drinking all call about half a pint a day prior to admission. symptoms have resolved with antiemetics, proton pump inhibitor. Elevated troponin This is mildly elevated, likely due to nonischemic cardiomyopathy. remained stable Non-ischemic cardiomyopathy Will continue treatment with Coreg, lisinopril, diuretics Acute on Chronic systolic and diastolic congestive heart failure Last ejection fraction less than 25% The patient received a dose of IV Lasix. I will continue oral Lasix and spironolactone. resolved Continue Coreg and lisinopril. Anxiety Continue trazodone for sleep, hydroxyzine as needed Try not to escalate habit-forming drugs. there was no significant sign of alcohol or drug withdrawal Alcoholic liver cirrhosis Elevated bilirubin, Alcohol and amphetamine cessation was discussed - Discharge Data Discharge Date: 12/10/16 Discharge Disposition: Home, Self-Care 01 Condition: Stable - Discharge Diagnosis/Problem(s) (1) Acute exacerbation of congestive heart failure SNOMED Code(s): 12920677 ICD Code: I50.9 - HEART FAILURE, UNSPECIFIED Status: Acute Current Visit : Yes Qualifiers: Congestive heart failure type: unspecified congestive heart failure type Qualified Code(s): I50.9 - Heart failure, unspecified (2) Gastritis SNOMED Code(s): 9955710 ICD Code: K29.70 - GASTRITIS, UNSPECIFIED, WITHOUT BLEEDING Status: Acute Current Visit: Yes Qualifiers: Gastritis type: other gastritis Chronicity: acute Gastritis bleeding: presence of bleeding unspecified Qualified Code(s): K29.00 - Acute gastritis without bleeding (3) Polysubstance abuse SNOMED Code(s): 564543027 ICD Code: F19.10 - OTHER PSYCHOACTIVE SUBSTANCE ABUSE, UNCOMPLICATED Status : Acute Current Visit: No (4) Shortness of breath SNOMED Code(s): 475152688 ICD Code: R06.02 - SHORTNESS OF BREATH Status: Acute Current Visit: No - Patient Instructions Diet: Heart Healthy Diet Activity: As Tolerated - Discharge Plan Prescriptions/Med Rec: Omeprazole 20 mg PO ACBREAKFAST #30 cap.cr Home Medications: Home Meds Lisinopril 20 mg PO DAILY 07/17/14 [History] Carvedilol [Coreg] 6.25 mg PO BIDMEALS 10/18/15 [History] Furosemide [Lasix] 40 mg PO DAILY 10/18/15 [History] Spironolactone [Aldactone] 25 mg PO DAILY 10/18/15 [History] Omeprazole 20 mg PO ACBREAKFAST #30 cap.cr 12/10/16 [Rx] Referrals: Roger Waters MD [Physician] - (in 2-3 days) - Discharge Summary/Plan Comment DC Time >30 min.: No - General Info Date of Service: 12/10/16 Subjective Update: Feeling better, has been able to eat and drink. Abdominal pain resolved. No shortness of breath and no associated chest pain. He reported anxiety yesterday received a few doses of Ativan but no significant withdrawal noted. - Review of Systems General: Denies: Fever Pulmonary: Denies: Shortness of Breath Cardiovascular: Denies: Chest Pain Gastrointestinal: Denies: Abdominal Pain Neurological: Denies: Confusion - Patient Data Vitals - Most Recent: Last Vital Signs Temp 37.2 C 12/10/16 07:00 Pulse 75 12/10/16 09:05 Resp 20 12/10/16 07:00 BP 109/77 12/10/16 09:05 Pulse Ox 98 12/10/16 07:00 Weight - Most Recent: 87.543 kg I&O - Last 24 hours: Intake & Output 12/09/16 12/10/16 12/10/16 22:59 06:59 14:59 Intake Total 760 350 400 Balance 760 350 400 Lab Results - Last 24 hrs: Laboratory Results - last 24 hr 12/09/16 12/10/16 12/10/16 Range/Units 15:10 06:30 06:30 WBC 9.4 (5.0-10.0) 10^3/uL RBC 4.74 (4.6-6.2) 10^6/uL Hgb 13.9 L (14.0-18.0) g/dL Hct 41.9 (40.0-54.0) % MCV 88.4 (80-100) fL MCH 29.3 (27.0-34.0) pg MCHC 33.2 (33.0-35.0) g/dL Plt Count 194 (150-450) 10^3/uL Neut % (Auto) 71.3 (42.2-75.2) % Lymph % (Auto) 13.5 L (20.5-50.1) % [place] % (Auto) 8.0 (2-8) % Eos % (Auto) 6.6 H (1.0-3.0) % Baso % (Auto) 0.6 (0.0-1.0) % Sodium 140 (135-145) mmol/L Potassium 3.7 (3.6-5.0) mmol/L Chloride 107 (101-111) mmol/L Carbon Dioxide 24.0 (21.0-31.0) mmol/L Anion Gap 12.7 BUN 17 (7-18) mg/dL Creatinine 0.8 (0.6-1.3) mg/dL Est Cr Clr Drug Dosing 111.70 mL/min Estimated GFR (MDRD) > 60 Glucose 106 H (74-105) mg/dL Calcium 8.7 (8.4-10.2) mg/dl Troponin I 0.08 H* 0.06 H* (0.00-0.02) ng/ml Med Orders - Current: Current Medications Acetaminophen (Tylenol) 650 mg PO Q4H PRN PRN Reason: Pain (Mild 1-3)/fever Last Admin: 12/09/16 10:37 Dose: 650 mg Carvedilol (Coreg) 6.25 mg PO BIDMEALS [facility] Last Admin: 12/10/16 09:05 Dose: 6.25 mg Furosemide (Lasix) 40 mg PO DAILY [facility] Last Admin: 12/10/16 09:04 Dose: 40 mg Heparin Sodium (Porcine) (Heparin Sodium) 5,000 units SUBCUT Q8HR [facility] Last Admin: 12/10/16 06:25 Dose: 5,000 units Hydroxyzine HCl (Atarax) 25 mg PO Q6H PRN PRN Reason: Anxiety Ibuprofen (Motrin) 400 mg PO Q6H PRN PRN Reason: Pain (mild 1-3) Lisinopril (Prinivil) 20 mg PO DAILY [facility] Last Admin: 12/10/16 09:04 Dose: 20 mg Lorazepam (Ativan) 1 mg PO .PER PROTOCOL PRN; Protocol PRN Reason: Withdrawal Symptoms Last Admin: 12/10/16 06:26 Dose: 1 mg Lorazepam (Ativan) 1 mg IVPUSH ASDIRECTED PRN; Protocol PRN Reason: Withdrawal Symptoms Last Admin: 12/09/16 21:46 Dose: 1 mg Omeprazole (Omeprazole) 20 mg PO ACBREAKFAST [facility] Last Admin: 12/10/16 06:25 Dose: 20 mg Ondansetron HCl (Zofran Odt) 4 mg PO Q6H PRN PRN Reason: nausea, able to take PO Ondansetron HCl (Zofran) 4 mg IVPUSH Q6H PRN PRN Reason: Nausea/Vomiting Promethazine HCl (Phenergan) 25 mg PO Q6H PRN PRN Reason: nausea, able to take PO Last Admin: 12/09/16 12:44 Dose: 25 mg Promethazine HCl (Phenergan) 12.5 mg IM Q6H PRN PRN Reason: Nausea/Vomiting Sodium Chloride (Saline Flush) 10 ml FLUSH ASDIRECTED PRN PRN Reason: Keep Vein Open Last Admin: 12/09/16 21:50 Dose: 10 ml Spironolactone (Aldactone) 25 mg PO DAILY [facility] Last Admin: 12/10/16 09:05 Dose: 25 mg Trazodone HCl (Trazodone) 50 mg PO BEDTIME PRN PRN Reason: Sleep Discontinued Medications Furosemide (Lasix) 40 mg IVPUSH NOW ONE Stop: 12/09/16 08:51 Last Admin: 12/09/16 09:00 Dose: 40 mg - Exam General: Reports: Alert, Oriented Neck: Reports: Supple Lungs: Reports: Clear to Auscultation, Normal Respiratory Effort GI/Abdominal Exam: Normal Bowel Sounds, Soft, Non-Tender Extremities: No Pedal Edema *Q Meaningful Use (DIS) - VTE *Q VTE Criteria *Q: - Stroke *Q Stroke Criteria *Q: - AMI *Q AMI Criteria *Q:
[2016-12-10 13:31] VITALS: BP 110/71
--- NOTE | 2016-12-11 08:31 | EKG ---
12/09/2016- MANNIE MEREDITH - EKG per my reading shows sinus tachycardia at the rate of 107. MODL /[id number]
== END 2016-12-10 14:40 | disposition home or self-care (01) ==
LOC: DL.ED 07:32 → DL.MS 09:28 → UNDOADMOB 09:28 → DL.MS 09:55
PROVIDERS: ADMIT Internal Medicine; ATTEND Internal Medicine
DX: I50.9 Heart failure, unspecified (principal); K29.70 Gastritis, unspecified, without bleeding; F19.10 Other psychoactive substance abuse, uncomplicated; R06.02 Shortness of breath; I10 Essential (primary) hypertension; K21.9 Gastro-esophageal reflux disease without esophagitis; F41.9 Anxiety disorder, unspecified; Z98.62 Peripheral vascular angioplasty status; Z79.899 Other long term (current) drug therapy; F17.210 Nicotine dependence, cigarettes, uncomplicated
CPT/HCPCS: 36415; 71020; 80048; 80053; 80305; 81001; 82140; 82150; 83605; 83690; 83735; 83880; 84484; 85025; 87040; 93005; 96376; 99285; A9270; G0378; G0480; J1644; J1940; J2060; J7050; 96372; 96374; 96375

== ENCOUNTER 2016-12-16 15:03 | Inpatient (IN) | payer MEDICAID, OTHER ==
[2016-12-16] MEDS ORDERED: Ondansetron 4 MG/2 ML SDV IV ONE (15:38)
[2016-12-16] MEDS ORDERED: Albuterol/Ipratropium 3.0-0.5 MG/3 ML Neb Soln NEB ONE (15:39)
[2016-12-16 16:19] LABS: CHLORIDE,CL 101 mmol/L (101-111); SODIUM,NA 138 mmol/L (135-145)
[2016-12-16] MEDS ORDERED: Sodium Chloride 0.9% 1,000 ML IV SCH (16:30)
--- NOTE | 2016-12-16 16:34 | CR ---
Clinical history: 51-year-old male cough and shortness of breath. Interpretation: Chronically enlarged cardiac silhouette and proximal pulmonary artery segments this patient with card iac pacemaker (pacer leads intact). No appreciable change since 09 December 2016 films. No new signs of pulmonary edema, lung mass, focal lobar pneumonia or atelectasis/collapse. No pneumot horax.
[2016-12-16] MEDS: Sodium Chloride 0.9% 10 ML Syringe FLUSH PRN ×2 (17:35→22:06)
[2016-12-16] MEDS ORDERED: Furosemide 40 MG/4 ML VIAL IVPUSH ONE (17:43)
[2016-12-16] MEDS ORDERED: Acetaminophen 325 MG Tab PO PRN (19:15)
[2016-12-16] MEDS ORDERED: Ondansetron 4 MG Tab.DIS PO PRN (19:15)
[2016-12-16] MEDS ORDERED: Check Patch **NICOTINE TRDERM SCH (21:00)
[2016-12-16] MEDS ORDERED: Furosemide 40 MG/4 ML VIAL IVPUSH SCH (21:00)
[2016-12-16] MEDS: Acetaminophen/oxyCODONE 325-5 MG Tab PO PRN (22:02)
[2016-12-16] MEDS: Heparin Sodium 5,000 Units/ML Vial SUBCUT SCH (22:05)
--- NOTE | 2016-12-17 00:35 | HP ---
CHIEF COMPLAINT: Increasing shortness of breath. HISTORY OF PRESENTING ILLNESS: Mr. Sachi Castillo is a 51-year-old male with medical history significant for hypertension, hyperlipidemia, chronic alcohol use, chronic tobacco use, chronic methamphetamine use, chronic congestive heart failure with systolic and diastolic dysfunction, nonischemic cardiomyopathy with decreased ejection fraction to less than 25%, and history of pacemaker placement, who presented to the ER with complaints of increasing shortness of breath. He was recently discharged from the hospital on December 10 after he got admitted with similar complaints, and he was noted to be noncompliant with his medications at that time also and continued to use alcohol at that time. At this time, the patient complains of increasing shortness of breath for the last 3 days, which has been progressively getting worse. He grades this shortness of breath as 5 to 6/10 in intensity, which gets aggravated on exertion, relieved with rest, associated with some chest tightness which is intermittent in nature. Also complains of having mild chills and rigors at home. Complains of having cough with sputum which is whitish in color and sometimes greenish in color. Complains of mild abdominal discomfort. Had at least 3 to 4 episodes of vomiting in the last 2 to 3 days and has not been taking his medications. The patient denies any diarrhea in the last few days. No sick contacts. No recent travel. The patient has not taken his medications for the last 2 to 3 days secondary to nausea and vomiting. The patient denied any history of chest pains on exertion, but has dyspnea on exertion. Denies any history of orthopnea or paroxysmal nocturnal dyspnea. The patient denied any history of hematemesis, hematochezia, or melanotic stools. Normal bowel and bladder habits otherwise. REVIEW OF SYSTEMS: A complete review of system including skin, ear, nose, and throat, cardiovascular system, respiratory system, gastrointestinal system, genitourinary system, hematology, oncology, neurology, allergy, and immunology were all evaluated and were negative except for the above-said notes. PAST MEDICAL HISTORY: Significant for: 1. Hypertension. 2. Hyperlipidemia. 3. Nonischemic cardiomyopathy. 4. Chronic congestive heart failure with systolic and diastolic dysfunction. 5. Chronic history of methamphetamine use. 6. Chronic history of marijuana use. 7. Chronic tobacco use. 8. Chronic alcohol use. 9. Alcoholic liver disease with cirrhosis. 10.Alcoholic cardiomyopathy. PAST SURGICAL HISTORY: 1. Significant for colon surgery. The patient is not sure what type of colon surgery he had. 2. Lipoma resection. FAMILY HISTORY: Significant for diabetes and heart disease in his father. Heart disease and diabetes in his paternal grandmother. SOCIAL HISTORY: The patient has a chronic history of tobacco use. He is still smoking cigarettes. The patient is saying that he is trying to quit smoking and is down to 4 to 5 cigarettes a day. Chronic history of alcohol use, but the patient claims that he had quit drinking last month. Chronic history of marijuana use and methamphetamine use. ALLERGIES: No known drug allergies. HOME MEDICATIONS: Include: 1. Trazodone 50 mg daily. 2. Spironolactone 25 mg daily. 3. Atarax as needed. 4. Omeprazole 20 mg daily. 5. Albuterol 2 puffs inhalation every 6 hours as needed. 6. Coreg 6.25 mg daily. 7. Lasix 40 mg two times a day. 8. Potassium chloride 20 mEq daily. 9. Imdur 30 mg daily. 10.Lisinopril 10 mg daily. PHYSICAL EXAMINATION: Vital Signs: Temperature of 98.7, pulse of 80, blood pressure 113/90, respiratory rate of 22, saturating at 96% on room air. General Appearance: The patient is well oriented to time, place, and person. Follows commands spontaneously. Cardiovascular System: S1, S2 heard with normal intensity. Grade 3/6 systolic murmur appreciated in the apex of the heart and also on the left 2nd intercostal space. Abdomen: Soft. Bowel sounds positive. Nontender. No rigidity. No guarding. No rebound tenderness. Midline scar noted. Extremities: No edema bilateral lower extremities. Neurology: No gross focal neurological deficits. LABORATORY DATA: WBC 7.2, hemoglobin 13, hematocrit 40.7, platelet count 201. Sodium 138, potassium 4.4, chloride 101, bicarb 27, BUN 22, creatinine 1, glucose 112, total bilirubin 2.8, AST 329, ALT 229, alkaline phosphatase 76. B- natriuretic peptide 3030. Troponin 0.04. IMAGING: Chest x-ray shows evidence of pulmonary venous congestion with mild atelectasis on the lower lobes. No pleural effusion. ASSESSMENT: 1. Ukcvf-[id number]-[id number] congestive heart failure, systolic and diastolic dysfunction. His recent echocardiogram shows an ejection fraction of less than 25%. 2. Nonischemic cardiomyopathy, alcohol induced. 3. Hypertension. 4. Hyperlipidemia. 5. Chronic history of alcohol use. 6. Chronic history of tobacco use. 7. 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 8. Noncompliance with medical treatment and plan. 9. Status post pacemaker placed. PLAN: 1. Jtsku-eo-wmmnzcd congestive heart failure secondary to systolic and diastolic dysfunction. The patient presents with increasing shortness of breath. He is noted to have elevated B-natriuretic peptide and also congestion on the chest x-ray. The patient has been noncompliance with medications for the last 3 days leading to this buubp-uf-fshourp congestive heart failure. The patient will be kept on IV Lasix. The patient was explained about the importance of being compliant with medications which he understands and verbalized the same. 2. Hypertension. The patient's blood pressure seems to be in acceptable range. Continue with current antihypertensive medication. Try to avoid any hypotensive episodes. 3. Chronic alcohol use and tobacco use. The patient is educated about tobacco cessation and alcohol cessation. Strongly encouraged him to quit smoking and drinking which he understands and verbalized the same. 4. Illicit drug use. The patient is educated about the ill effects of alcohol on his heart and also methamphetamine on his heart. I strongly encouraged him to stop using marijuana and methamphetamine. The patient claims that he has not used in the last 1 month. 5. DVT prophylaxis. We will have him on heparin 5000 units subcu q.8 hourly for DVT prophylaxis. 6. Elevated troponin. The patient has mildly elevated troponin. The patient recently had a coronary angiogram back in October of 2015 which shows nonischemic cardiomyopathy and likely alcohol related, and has recommended for medical management at that time. No obstructive coronary artery disease noted at that time, so this is less likely associated with coronary artery disease, most likely associated with nonischemic cardiomyopathy and congestive heart failure exacerbation. 7. Fevers and chills. The patient is complaining of having fevers and chills, and there is mild evidence of atelectasis on the chest x-ray. Given his cough with sputum production which is greenish yellow in color, we will start him empirically on IV antibiotic with Levaquin for now. We will closely follow. The patient does not have any leukocytosis either. We will obtain sputum for culture. 8. We will get a urine toxicology screen. 9. Code status. The patient wants to be DNR/DNI. 10.Discussed with ER physician regarding the plan of care. Reviewed the labs and medications. Reviewed the old charts. [facility] /[id number]
[2016-12-17 03:43] LABS: CHLORIDE,CL 100 mmol/L (101-111); SODIUM,NA 136 mmol/L (135-145)
[2016-12-17] MEDS: Acetaminophen/oxyCODONE 325-5 MG Tab PO PRN ×4 (04:07→22:41)
[2016-12-17] MEDS: Albuterol/Ipratropium 3.0-0.5 MG/3 ML Neb Soln NEB PRN ×2 (04:12→17:40)
[2016-12-17] MEDS: Heparin Sodium 5,000 Units/ML Vial SUBCUT SCH ×3 (05:24→21:23)
[2016-12-17] MEDS: Omeprazole 20 MG Cap.CR PO SCH (05:24)
[2016-12-17] MEDS ORDERED: Furosemide 40 MG/4 ML VIAL IVPUSH SCH ×2 (06:00)
[2016-12-17] MEDS: Spironolactone 25 MG Tab PO SCH (08:46)
[2016-12-17] MEDS: Carvedilol 6.25 MG Tab PO SCH ×2 (08:46→17:40)
[2016-12-17] MEDS: Nicotine 14 MG/24 Hr Patch TRDERM SCH (08:47)
[2016-12-17] MEDS ORDERED: Lisinopril 20 MG Tab PO SCH (09:00)
--- NOTE | 2016-12-17 09:16 | EDM.PDOC ---
Scribed by Diann Nayak 12/16/16 1703 for Maia Cheng NP ED HPI GENERAL MEDICAL PROBLEM - General Chief Complaint: Respiratory Problem Stated Complaint: IN BY AMBULANCE Time Seen by Provider: 12/16/16 15:32 Source of Information: Reports: Patient, EMS Notes Reviewed, RN, RN Notes Reviewed History Limitations: Reports: No Limitations - History of Present Illness INITIAL COMMENTS - FREE TEXT/NARRATIVE: Patient presented with for the last 3 days nausea, vomiting and diarrhea. Shortness of breath with fever and chills as well as chest pain. Discharged from [facility] in [place] on 12/10/16. Location: Reports: Chest, Abdomen Quality: Reports: Ache Severity: Moderate Improves with: Reports: None Worsens with: Reports: None Associated Symptoms: Reports: No Other Symptoms - Related Data Allergies Allergy/AdvReac Type Severity Reaction Status Date / Time No Known Allergies Allergy Verified 12/16/16 15:12 Home Meds: Home Meds Lisinopril 20 mg PO DAILY 07/17/14 [History] Carvedilol [Coreg] 6.25 mg PO BIDMEALS 10/18/15 [History] Furosemide [Lasix] 40 mg PO DAILY 10/18/15 [History] Spironolactone [Aldactone] 25 mg PO DAILY 10/18/15 [History] Omeprazole 20 mg PO ACBREAKFAST #30 cap.cr 12/10/16 [Rx] Past Medical History - Past Health History Medical/Surgical History: Denies Medical/Surgical History HEENT History: Reports: None Cardiovascular History: Reports: Cardiomyopathy, Heart Failure, Hypertension Respiratory History: Reports: SOB Gastrointestinal History: Reports: GERD Genitourinary History: Reports: Other (See Below) Other Genitourinary History: liver issues r/t ETOH Musculoskeletal History: Reports: Other (See Below) Other Musculoskeletal History: torn left and right upper arm tendon Neurological History: Reports: None Psychiatric History: Reports: Addiction, Anxiety Endocrine/Metabolic History: Reports: None Hematologic History: Reports: None Immunologic History: Reports: None Oncologic (Cancer) History: Reports: None Dermatologic History: Reports: None - Infectious Disease History Infectious Disease History: Reports: None - Past Surgical History Head Surgeries/Procedures: Reports: None Cardiovascular Surgical History: Reports: Percutaneous Transluminal Angioplasty Social & Family History - Family History Family Medical History: Noncontributory Cardiac: Reports: Hypertension Other Cardiac Family History: Dad and paternal grandmother have hypertension. Respiratory: Reports: Asthma Other Respiratory Family Hisory: Mom and dad have asthma. Endocrine/Metabolic: Reports: Diabetes, Type I Other Endocrine/Metabolic Family History: Dad and paternal grandmother have type I diabetes. - Tobacco Use Smoking Status *Q: Current Every Day Smoker Years of Tobacco use: 9 Packs/Tins Daily: 0.5 Used Tobacco, but Quit: No Second Hand Smoke Exposure: Yes - Caffeine Use Caffeine Use: Reports: Coffee, Soda - Alcohol Use Days Per Week of Alcohol Use: 3 Number of Drinks Per Day: 12 Total Drinks Per Week: 36 - Recreational Drug Use Recreational Drug Use: No Drug Use in Last 12 Months: Yes Recreational Drug Type: Reports: Methamphetamine, Oxycodone Other Recreational Drug Type: has not used for the last week Recreational Drug Use Frequency: Weekly Recreational Drug Last Use: yesterday - Living Situation & Occupation Living situation: Reports: with Family ED ROS GENERAL - Review of Systems Review Of Systems: ROS reveals no pertinent complaints other than HPI. ED EXAM, GENERAL - Physical Exam Exam: See Below Exam Limited By: No Limitations General Appearance: Alert, WD/WN, No Apparent Distress Eye Exam: Bilateral Eye: Normal Inspection Ears: Normal External Exam, Normal Canal, Hearing Grossly Normal, Normal TMs Nose: Normal Inspection, Normal Mucosa, No Blood Throat/Mouth: Other (mildly erythematous oropharynx.) Head: Atraumatic, Normocephalic Neck: Normal Inspection, Supple, Non-Tender, Full Range of Motion Respiratory/Chest: Crackles (and rhonchi throughout bilaterally.), Rhonchi Cardiovascular: Systolic Murmur (grade 2-3. ) GI/Abdominal: Other (diffuse tenderness ) (Male) Exam: Deferred Rectal (Males) Exam: Deferred Back Exam: Normal Inspection, Full Range of Motion, NT Extremities: Normal Inspection, Normal Range of Motion, Non-Tender, Normal Capillary Refill, No Pedal Edema Neurological: Alert, Oriented, CN II-XII Intact, Normal Cognition, Normal Gait, Normal Reflexes, No Motor/Sensory Deficits Psychiatric: Normal Affect, Normal Mood Skin Exam: Warm, Dry, Intact, Normal Color, No Rash Lymphatic: No Adenopathy Course - Vital Signs Last Recorded V/S: Last Vital Signs Temp 97.8 F 12/17/16 07:00 Pulse 88 12/17/16 08:46 Resp 20 12/17/16 07:00 BP 123/82 12/17/16 08:47 Pulse Ox 96 12/17/16 07:00 - Orders/Labs/Meds Orders: Active Orders 24 hr Category Date Time Status Peripheral IV Care [RC] . DIRECTED Care 12/16/16 15:38 Active RT Aerosol Therapy [RC] ASDIRECTED Care 12/16/16 15:40 Active Sodium Chloride 0.9% [Saline Flush] Med 12/16/16 15:38 Active 10 ml FLUSH ASDIRECTED PRN Peripheral IV Insertion Adult [OM.PC] Stat Oth 12/16/16 15:38 Ordered Medication Orders Acetaminophen (Tylenol) 650 mg PO Q4H PRN PRN Reason: Pain (Mild 1-3)/fever Albuterol/Ipratropium (Duoneb 3.0-0.5 Mg/3 Ml) 3 ml NEB Q4HRRT PRN PRN Reason: Wheezing Last Admin: 12/17/16 04:12 Dose: 3 ml Carvedilol (Coreg) 6.25 mg PO BIDMEALS [facility] Last Admin: 12/17/16 08:46 Dose: 6.25 mg Furosemide (Lasix) 40 mg IVPUSH BID@0600,1400 [facility] Last Admin: 12/17/16 05:26 Dose: 40 mg Heparin Sodium (Porcine) (Heparin Sodium) 5,000 units SUBCUT Q8HR [facility] Last Admin: 12/17/16 05:24 Dose: 5,000 units Admin: 12/16/16 22:05 Dose: 5,000 units Lisinopril (Prinivil) 20 mg PO DAILY [facility] Last Admin: 12/17/16 08:47 Dose: 20 mg Nicotine (Habitrol) 14 mg TRDERM DAILY [facility] Last Admin: 12/17/16 08:47 Dose: 14 mg Omeprazole (Omeprazole) 20 mg PO ACBREAKFAST [facility] Last Admin: 12/17/16 05:24 Dose: 20 mg Ondansetron HCl (Zofran Odt) 4 mg PO Q4H PRN PRN Reason: nausea, able to take PO Last Admin: 12/17/16 01:13 Dose: 4 mg Oxycodone/Acetaminophen (Percocet 325-5 Mg) 1 tab PO Q6H PRN PRN Reason: Pain (severe 7-10) Last Admin: 12/17/16 04:07 Dose: 1 tab Admin: 12/16/16 22:02 Dose: 1 tab Sodium Chloride (Saline Flush) 10 ml FLUSH ASDIRECTED PRN PRN Reason: Keep Vein Open Last Admin: 12/16/16 22:06 Dose: 10 ml Admin: 12/16/16 17:35 Dose: 10 ml Spironolactone (Aldactone) 25 mg PO DAILY ANGELIQUE Last Admin: 12/17/16 08:46 Dose: 25 mg Labs: Laboratory Tests 12/16/16 12/16/16 12/16/16 Range/Units 15:50 15:50 15:50 WBC 7.2 (5.0-10.0) 10^3/uL RBC 4.51 L (4.6-6.2) 10^6/uL Hgb 13.0 L (14.0-18.0) g/dL Hct 40.7 (40.0-54.0) % MCV 90.2 (80-100) fL MCH 28.8 (27.0-34.0) pg MCHC 31.9 L (33.0-35.0) g/dL Plt Count 201 (150-450) 10^3/uL Neut % (Auto) 58.3 (42.2-75.2) % Lymph % (Auto) 27.8 (20.5-50.1) % [place] % (Auto) 10.2 H (2-8) % Eos % (Auto) 2.4 (1.0-3.0) % Baso % (Auto) 1.3 H (0.0-1.0) % Sodium 138 (135-145) mmol/L Potassium 4.4 (3.6-5.0) mmol/L Chloride 101 (101-111) mmol/L Carbon Dioxide 27.0 (21.0-31.0) mmol/L Anion Gap 14.4 BUN 22 H (7-18) mg/dL Creatinine 1.0 (0.6-1.3) mg/dL Est Cr Clr Drug Dosing 89.36 mL/min Estimated GFR (MDRD) > 60 BUN/Creatinine Ratio 22.00 Glucose 112 H (74-105) mg/dL Calcium 9.1 (8.4-10.2) mg/dl Total Bilirubin 2.8 H (0.2-1.0) mg/dL AST 329 H (10-42) IU/L ALT 229 H (10-60) IU/L Alkaline Phosphatase 76 (42-121) IU/L Troponin I 0.04 H* (0.00-0.02) ng/ml B-Natriuretic Peptide 3030 H (0-100) pg/ml Total Protein 6.7 (6.7-8.2) g/dl Albumin 3.6 (3.2-5.5) g/dl Globulin 3.1 Albumin/Globulin Ratio 1.16 Meds: Medications Generic Name Dose Route Start Last Admin Trade Name Freq PRN Reason Stop Dose Admin Acetaminophen 650 mg 12/16/16 19:15 Tylenol PO Q4H PRN Pain (Mild 1-3)/fever Albuterol/Ipratropium 3 ml 12/16/16 19:25 12/17/16 04:12 Duoneb 3.0-0.5 Mg/3 Ml NEB 3 ml Q4HRRT PRN Administration Wheezing Carvedilol 6.25 mg 12/17/16 08:00 12/17/16 08:46 Coreg PO 6.25 mg BIDMEALS ANGELIQUE Administration Furosemide 40 mg 12/17/16 06:00 12/17/16 05:26 Lasix IVPUSH 40 mg BID@0600,1400 ANGELIQUE Administration Heparin Sodium (Porcine) 5,000 units 12/16/16 22:00 12/17/16 05:24 Heparin Sodium SUBCUT 5,000 units Q8HR ANGELIQUE Administration Lisinopril 20 mg 12/17/16 09:00 12/17/16 08:47 Prinivil PO 20 mg DAILY ANGELIQUE Administration Nicotine 14 mg 12/17/16 09:00 12/17/16 08:47 Habitrol TRDERM 14 mg DAILY ANGELIQUE Administration Omeprazole 20 mg 12/17/16 06:00 12/17/16 05:24 Omeprazole PO 20 mg ACBREAKFAST ANGELIQUE Administration Ondansetron HCl 4 mg 12/16/16 19:15 12/17/16 01:13 Zofran Odt PO 4 mg Q4H PRN Administration nausea, able to take PO Oxycodone/Acetaminophen 1 tab 12/16/16 19:23 12/17/16 04:07 Percocet 325-5 Mg PO 1 tab Q6H PRN Administration Pain (severe 7-10) Sodium Chloride 10 ml 12/16/16 15:38 12/16/16 22:06 Saline Flush FLUSH 10 ml ASDIRECTED PRN Administration Keep Vein Open Spironolactone 25 mg 12/17/16 09:00 12/17/16 08:46 Aldactone PO 25 mg DAILY ANGELIQUE Administration Discontinued Medications Generic Name Dose Route Start Last Admin Trade Name Walter PRN Reason Stop Dose Admin Albuterol/Ipratropium 3 ml 12/16/16 15:39 12/16/16 16:01 Duoneb 3.0-0.5 Mg/3 Ml NEB 12/16/16 15:40 3 ml ONETIME ONE Administration Furosemide 80 mg 12/16/16 17:43 12/16/16 17:52 Lasix IVPUSH 12/16/16 17:44 80 mg NOW ONE Administration Furosemide 40 mg 12/16/16 21:00 Lasix IVPUSH BID ANGELIQUE Furosemide 40 mg 12/17/16 06:00 Lasix IVPUSH BID ANGELIQUE Sodium Chloride 1,000 mls @ 75 mls/hr 12/16/16 16:30 12/16/16 16:31 Normal Saline IV 75 mls/hr ASDIRECTED ANGELIQUE Administration Miscellaneous Information 1 ea 12/16/16 21:00 Check Patch TRDERM BEDTIME ANGELIQUE Ondansetron HCl 4 mg 12/16/16 15:38 12/16/16 16:05 Zofran IV 12/16/16 15:39 4 mg ONETIME ONE Administration Departure - Departure Time of Disposition: 17:58 Disposition: Admitted As Inpatient 68 Condition: Good Clinical Impression: Congenital heart disease in adult, CHF (congestive heart failure) - Discharge Information - My Orders Last 24 Hours: My Active Orders 12/16/16 15:38 Peripheral IV Care [RC] . DIRECTED Sodium Chloride 0.9% [Saline Flush] 10 ml FLUSH ASDIRECTED PRN Peripheral IV Insertion Adult [OM.PC] Stat 12/16/16 15:40 RT Aerosol Therapy [RC] ASDIRECTED - Assessment/Plan Last 24 Hours: My Active Orders 12/16/16 15:38 Peripheral IV Care [RC] . DIRECTED Sodium Chloride 0.9% [Saline Flush] 10 ml FLUSH ASDIRECTED PRN Peripheral IV Insertion Adult [OM.PC] Stat 12/16/16 15:40 RT Aerosol Therapy [RC] ASDIRECTED I have read and agree with the documentation that has been completed regarding this visit. By signing this record, I attest that the documentation was completed in my physical presence and is an accurate record of the encounter.
--- NOTE | 2016-12-17 13:01 | PN ---
DATE: 12/17/2016 SUBJECTIVE: Mr. Jonathan Karimi is a 51-year-old male with medical history significant for hypertension, hyperlipidemia, chronic alcohol use, chronic tobacco use, chronic methamphetamine use, chronic congestive heart failure with systolic and diastolic dysfunction with recent echocardiogram showing ejection fraction of less than 25%, history of pacemaker placement, admitted with increasing shortness of breath secondary to noncompliance with medical treatment. For the last 24 hours, the patient is continued on IV Lasix. He has a net negative balance at this time. His BNP seems to be improving. He still continues to have shortness of breath on exertion and while sleeping, grades it as 2 to 3/10 in intensity, relieved with Lasix, not associated with any chest pain. Denies any abdominal pain. No nausea. No vomiting. No diarrhea. REVIEW OF SYSTEMS: Cardiovascular, respiratory, gastrointestinal, neurology, constitutional were all evaluated. PHYSICAL EXAMINATION: Vital Signs: Temperature of 97.7, pulse of 78, blood pressure of 96/75, respiratory rate of 20, and saturating at 93% on room air. General Appearance: The patient is well oriented to time, place, and person. Follows commands spontaneously. Cardiovascular System: S1 and S2 heard with normal intensity. No gallops. Respiratory System: Clear to auscultation bilaterally. No wheeze. No crepitations. Abdomen: Soft. Bowel sounds positive. Nontender. No rigidity. No guarding. No rebound tenderness. Extremities: No edema in bilateral lower extremities. Neurology: No gross focal neurological deficits. MEDICATIONS: Reviewed. 1. Continue with Tylenol 650 every 4 hours as needed for pain. 2. DuoNeb 3 mL nebulizer every 4 hours as needed for wheezing. 3. Coreg 6.25 mg twice a day. 4. Change the Lasix to 40 mg oral daily. 5. Lisinopril 20 mg daily. 6. Heparin 5000 units subcutaneous q.8 hourly. 7. Nicotine transdermal patch. 8. Omeprazole 20 mg daily. 9. Spironolactone 25 mg oral daily. LABORATORY DATA: Sodium 136, potassium 3.7, chloride 100, bicarb 26, BUN 25, creatinine 1, glucose 128. Troponin 0.05. BNP 2810. ASSESSMENT: 1. Acute on chronic congestive heart failure secondary to systolic and diastolic dysfunction with ejection fraction less than 25%. 2. Nonischemic cardiomyopathy, alcohol induced. 3. Hypertension. 4. Hyperlipidemia. 5. Chronic history of alcohol use and tobacco use. 6. Chronic history of marijuana use and methamphetamine abuse. 7. Noncompliance with medical treatment plan. 8. Status post pacemaker placed. PLAN: 1. Acute on chronic congestive heart failure. The patient was started on IV Lasix 40 mg twice a day. He is noted to have slightly elevated BUN and also low blood pressure, so we will change it to oral Lasix at this time and we will closely monitor his input, output, and daily weights. He has a net negative balance of 500 mL since admission. 2. Hypertension. The patient tends to have lower blood pressure. We will change the Lasix to 40 mg daily. Decrease the lisinopril to 10 mg daily to avoid any hypotensive episodes. The patient has murmurs noted on physical examination. 3. Nonischemic cardiomyopathy. The patient noted to have slightly elevated troponin, but this could be resulting from his acute on chronic congestive heart failure. The patient recently had a coronary angiogram last year, which showed evidence of nonobstructive coronary artery disease. We will closely follow. The patient denies any ongoing chest pain. 4. Illicit drug use. The patient had history of marijuana use and methamphetamine use and alcohol use and tobacco use. The patient is educated about alcohol and tobacco cessation and also explained about adverse effects of illicit drugs on his health, which he understands and verbalized the same. 5. DVT prophylaxis. Continue with heparin for DVT prophylaxis. [facility] /[id number]
[2016-12-17] MEDS: Azithromycin 250 MG Tab PO SCH (13:48)
--- NOTE | 2016-12-17 16:35 | EKG ---
12/16/2016 - MANNIE MEREDITH - Vivi 12-lead EKG shows normal sinus rhythm with heart rate of 89. No significant ST elevation or ST depression noted on this 12-lead EKG. Nonspecific ST-T wave changes noted on lead 3 and lead 2. [facility] /[id number]
[2016-12-18] MEDS: Albuterol/Ipratropium 3.0-0.5 MG/3 ML Neb Soln NEB PRN (03:26)
[2016-12-18] MEDS: Omeprazole 20 MG Cap.CR PO SCH (05:56)
[2016-12-18] MEDS: Acetaminophen/oxyCODONE 325-5 MG Tab PO PRN ×3 (05:56→21:56)
[2016-12-18] MEDS: Heparin Sodium 5,000 Units/ML Vial SUBCUT SCH ×3 (05:56→21:54)
[2016-12-18 06:54] LABS: CHLORIDE,CL 99 mmol/L (101-111); SODIUM,NA 136 mmol/L (135-145)
[2016-12-18] MEDS: Carvedilol 6.25 MG Tab PO SCH ×2 (08:55→17:35)
[2016-12-18] MEDS: Spironolactone 25 MG Tab PO SCH (08:56)
[2016-12-18] MEDS: Nicotine 14 MG/24 Hr Patch TRDERM SCH (08:56)
[2016-12-18] MEDS: Furosemide 40 MG Tab PO SCH (08:57)
[2016-12-18] MEDS: Lisinopril 20 MG Tab PO SCH (08:58)
[2016-12-18] MEDS: Azithromycin 250 MG Tab PO SCH (08:59)
[2016-12-18] MEDS: Sodium Chloride 0.9% 10 ML Syringe FLUSH PRN ×3 (10:21→21:57)
[2016-12-18] MEDS ORDERED: Furosemide 20 MG/2 ML VIAL IVPUSH ONE (12:30)
--- NOTE | 2016-12-18 21:28 | PCM.PN ---
- General Info Date of Service: 12/18/16 Subjective Update: Mr. Karimi still feels short of breath, continues to cough out some phlegm. denies any anginal chest pain. he reports to me that he was not able to keep down his medications prior to admission and hence the flare of up his heart failure. he tolerated his breakfast this morning, no more recurrence of vomiting. ambulated to bathroom and feels short of breath still. - Patient Data Vitals - Most Recent: Last Vital Signs Temp 36.6 C 12/18/16 21:03 Pulse 73 12/18/16 21:03 Resp 20 12/18/16 21:03 BP 108/75 12/18/16 21:03 Pulse Ox 98 12/18/16 21:03 Weight - Most Recent: 88.541 kg I&O - Last 24 Hours: Intake & Output 12/18/16 12/18/16 12/18/16 06:59 14:59 22:59 Intake Total 710 1780 1110 Output Total 775 1740 1450 Balance -65 40 -340 Lab Results Last 24 Hours: Laboratory Results - last 24 hr 12/18/16 Range/Units 06:00 Sodium 136 (135-145) mmol/L Potassium 3.8 (3.6-5.0) mmol/L Chloride 99 L (101-111) mmol/L Carbon Dioxide 29.0 (21.0-31.0) mmol/L Anion Gap 11.8 BUN 20 H (7-18) mg/dL Creatinine 1.0 (0.6-1.3) mg/dL Est Cr Clr Drug Dosing 89.36 mL/min Estimated GFR (MDRD) > 60 Glucose 93 (74-105) mg/dL Calcium 9.0 (8.4-10.2) mg/dl B-Natriuretic Peptide 1560 H (0-100) pg/ml Med Orders - Current: Current Medications Acetaminophen (Tylenol) 650 mg PO Q4H PRN PRN Reason: Pain (Mild 1-3)/fever Albuterol/Ipratropium (Duoneb 3.0-0.5 Mg/3 Ml) 3 ml NEB Q4HRRT PRN PRN Reason: Wheezing Last Admin: 12/18/16 03:26 Dose: 3 ml Azithromycin (Zithromax) 500 mg PO DAILY [facility] Last Admin: 12/18/16 08:59 Dose: 500 mg Carvedilol (Coreg) 6.25 mg PO BIDMEALS [facility] Last Admin: 12/18/16 17:35 Dose: 6.25 mg Furosemide (Lasix) 40 mg PO DAILY [facility] Last Admin: 12/18/16 08:57 Dose: 40 mg Heparin Sodium (Porcine) (Heparin Sodium) 5,000 units SUBCUT Q8HR [facility] Last Admin: 12/18/16 13:55 Dose: 5,000 units Lisinopril (Prinivil) 10 mg PO DAILY [facility] Last Admin: 12/18/16 08:58 Dose: 10 mg Nicotine (Habitrol) 14 mg TRDERM DAILY [facility] Last Admin: 12/18/16 08:56 Dose: 14 mg Omeprazole (Omeprazole) 20 mg PO ACBREAKFAST [facility] Last Admin: 12/18/16 05:56 Dose: 20 mg Ondansetron HCl (Zofran Odt) 4 mg PO Q4H PRN PRN Reason: nausea, able to take PO Last Admin: 12/17/16 01:13 Dose: 4 mg Oxycodone/Acetaminophen (Percocet 325-5 Mg) 1 tab PO Q8H PRN PRN Reason: Pain (severe 7-10) Last Admin: 12/18/16 13:56 Dose: 1 tab Sodium Chloride (Saline Flush) 10 ml FLUSH ASDIRECTED PRN PRN Reason: Keep Vein Open Last Admin: 12/18/16 12:40 Dose: 10 ml Spironolactone (Aldactone) 25 mg PO DAILY [facility] Last Admin: 12/18/16 08:56 Dose: 25 mg Discontinued Medications Albuterol/Ipratropium (Duoneb 3.0-0.5 Mg/3 Ml) 3 ml NEB ONETIME ONE Stop: 12/16/16 15:40 Last Admin: 12/16/16 16:01 Dose: 3 ml Furosemide (Lasix) 80 mg IVPUSH NOW ONE Stop: 12/16/16 17:44 Last Admin: 12/16/16 17:52 Dose: 80 mg Furosemide (Lasix) 40 mg IVPUSH BID [facility] Furosemide (Lasix) 40 mg IVPUSH BID [facility] Furosemide (Lasix) 40 mg IVPUSH BID@0600,1400 [facility] Last Admin: 12/17/16 05:26 Dose: 40 mg Furosemide (Lasix) 20 mg IVPUSH ONETIME ONE Stop: 12/18/16 12:31 Last Admin: 12/18/16 12:40 Dose: 20 mg Sodium Chloride (Normal Saline) 1,000 mls @ 75 mls/hr IV ASDIRECTED [facility] Last Admin: 12/16/16 16:31 Dose: 75 mls/hr Lisinopril (Prinivil) 20 mg PO DAILY [facility] Last Admin: 12/17/16 08:47 Dose: 20 mg Miscellaneous Information (Check Patch) 1 ea TRDERM BEDTIME [facility] Ondansetron HCl (Zofran) 4 mg IV ONETIME ONE Stop: 12/16/16 15:39 Last Admin: 12/16/16 16:05 Dose: 4 mg Oxycodone/Acetaminophen (Percocet 325-5 Mg) 1 tab PO Q6H PRN PRN Reason: Pain (severe 7-10) Last Admin: 12/18/16 05:56 Dose: 1 tab - Exam General: Alert, Oriented Lungs: Normal Respiratory Effort, Decreased Breath Sounds Cardiovascular: Regular Rate, Regular Rhythm GI/Abdominal Exam: Normal Bowel Sounds, Soft, Non-Tender Psy/Mental Status: Alert, Normal Affect - Problem List Review Problem List Initiated/Reviewed/Updated: Yes - My Orders Last 24 Hours: My Active Orders 12/18/16 11:39 Flutter Valve Therapy [RT Chest Physiotherapy] [RC] ASDIRECTED Incentive Spirometry [RT Incentive Spirometry] [RC] ASDIRECTED 12/18/16 11:42 Intake and Output Strict [RC] ASDIRECTED Acetaminophen/oxyCODONE [Percocet 325-5 MG] 1 tab PO Q8H PRN 12/19/16 06:00 BASIC METABOLIC PANEL,BMP [CHEM] Routine - Plan Plan:: 1. CHF exacerbation secondary to non compliance - he was given IV diuresis and has been slight negative balance - with this continues SOB and still elevated BNP although trending down, would give another IV lasix - continue with Lisinopril, coreg and spironolactone - strict input and output - incentive spirometry 2. SOB with sputum showing gram neg - was already on azithromycin - incentive spirometry and flutter valve - await final culture 3. left shoulder pain - was started on oxycodone-acetaminophen prn 4. DVT prophylaxis
[2016-12-19] MEDS: Omeprazole 20 MG Cap.CR PO SCH (05:38)
[2016-12-19] MEDS: Heparin Sodium 5,000 Units/ML Vial SUBCUT SCH (05:38)
[2016-12-19] MEDS: Acetaminophen/oxyCODONE 325-5 MG Tab PO PRN (06:16)
[2016-12-19 06:46] LABS: CHLORIDE,CL 101 mmol/L (101-111); SODIUM,NA 137 mmol/L (135-145)
[2016-12-19 06:47] VITALS: BP 108/74
[2016-12-19] MEDS: Spironolactone 25 MG Tab PO SCH (08:39)
[2016-12-19] MEDS: Carvedilol 6.25 MG Tab PO SCH (08:39)
[2016-12-19] MEDS: Azithromycin 250 MG Tab PO SCH (08:39)
[2016-12-19] MEDS: Furosemide 40 MG Tab PO SCH (08:39)
[2016-12-19] MEDS: Lisinopril 20 MG Tab PO SCH (08:41)
[2016-12-19] MEDS: Nicotine 14 MG/24 Hr Patch TRDERM SCH (09:07)
[2016-12-19] MEDS ORDERED: Furosemide 20 MG/2 ML VIAL IVPUSH ONE (10:41)
[2016-12-19] MEDS: Sodium Chloride 0.9% 10 ML Syringe FLUSH PRN (11:13)
[2016-12-19] MEDS ORDERED: FLU VAC QS 17-18(4YR UP)CEL/PF 60 MCG/0.5 ML Syringe IM ONE (11:29)
--- NOTE | 2017-01-12 15:33 | DISCH ---
FINAL DIAGNOSES: 1. Congestive heart failure exacerbation. 2. Community-acquired pneumonia. 3. Left shoulder pain. 4. History of noncompliance. BREIF HISTORY AND PHSICAL EXAMINATION: The patient is a 51-year-old male, who was admitted on December 16, 2016 because of increased shortness of breath that has been going on in the last 3 days, associated with some chest tightness intermittently, and cough productive of whitish sputum. PAST MEDICAL HISTORY: 1. CHF with systolic and diastolic. 2. Nonischemic cardiomyopathy with ejection fraction less than 25%. 3. History of pacemaker placement. 4. History of substance abuse with methamphetamines. PHYSICAL EXAMINATION: On admission, documented physical exam showed a blood pressure of 113/90, heart rate of 80 beats per minute, respirations 22, saturating 96% on room air, temperature 37.8. Documented physical exam showed a systolic murmur. He is awake, alert, and oriented. LABORATORY DATA: Workup done in the hospital; admitting CBC showed WBC of 7.2, hemoglobin 13.0, GFR more than 60. His BN peptide of 3030. Troponin 0.04. AST 329, ALT 229. BNP has trended down, the latest was 1560. The latest BMP showed a sodium 137, and GFR more than 60, potassium 4.4. Microbiologic study showed Haemophilus influenzae. Chest x-ray showed a chronically enlarged cardiac silhouette. BRIEF HOSPITAL COURSE: The patient was admitted under medical-surgical bed. He was started on IV Lasix for the congestive heart failure exacerbation. For the fever, chills, and with sputum production, started on antibiotic. The patient started to feel better slowly. He was diuresing well with negative balance. He was asking for the pain medication that was started on him for his left shoulder pain. No recurrence of the nausea and vomiting. Vital signs on discharge; blood pressure 108/74, heart rate of 71 beats per minute, respirations 20 breaths per minute, oxygen saturation 100% on room air. DISCHARGE INSTRUCTIONS: The patient is stable to be discharged home to follow up with primary care provider as scheduled in 3 days from discharge. Observe low-salt diet, emphasized compliance to medications especially the water pills. Emphasized cessation from substance use, and to come back to the emergency room if with emergent health concerns. [facility] /[id number] MTDD
== END 2016-12-19 11:55 | disposition home or self-care (01) | DRG 293 ==
LOC: DL.ED 15:03 → DL.MS 18:09 → UNDOADMIN 18:09 → DL.MS 19:15
PROVIDERS: ADMIT Internal Medicine; ATTEND Internal Medicine
DX: I11.0 Hypertensive heart disease with heart failure (principal); I50.43 Acute on chronic combined systolic (congestive) and diastolic (congestive) heart failure; I42.9 Cardiomyopathy, unspecified; K21.9 Gastro-esophageal reflux disease without esophagitis; F41.9 Anxiety disorder, unspecified; F17.210 Nicotine dependence, cigarettes, uncomplicated; F10.10 Alcohol abuse, uncomplicated; F15.90 Other stimulant use, unspecified, uncomplicated; F11.90 Opioid use, unspecified, uncomplicated; Z79.899 Other long term (current) drug therapy; E78.5 Hyperlipidemia, unspecified; Z95.0 Presence of cardiac pacemaker; Z66 Do not resuscitate; Z91.19 Patient's noncompliance with other medical treatment and regimen; M25.512 Pain in left shoulder
CPT/HCPCS: 36415; 71020; 80048; 80053; 81001; 83735; 83880; 84100; 84484; 85025; 87070; 87205; 90674; 93005; 94640; 96361; 96374; 96375; 99285; A9270-GY; J1644; J1940; J2405; J7030; J7050

== ENCOUNTER 2016-12-22 11:35 | Emergency (ER) | payer MEDICAID, OTHER ==
[2016-12-22 11:47] VITALS: BP 124/84
[2016-12-22] MEDS ORDERED: Sodium Chloride 0.9% 10 ML Syringe FLUSH PRN (11:49)
--- NOTE | 2016-12-22 11:55 | EDM.PDOC ---
ED HPI GENERAL MEDICAL PROBLEM - General Chief Complaint: Respiratory Problem Stated Complaint: [id number] SICK Time Seen by Provider: 12/22/16 11:50 Source of Information: Reports: Patient, RN, RN Notes Reviewed History Limitations: Reports: No Limitations - History of Present Illness INITIAL COMMENTS - FREE TEXT/NARRATIVE: Pt presents to the ER with c/o sob. He was discharged from inpatient care on Thursday. He states he took his Lasix on Thursday, but not Thursday or today. He was to be seen at the clinic today, but he missed his appointment. Patient states he has been having fever and chills, vomiting, but no diarrhea. Denies chest pain. Onset: Gradual Left Shoulder Pain Score (Numeric/FACES): 7 - Related Data Allergies Allergy/AdvReac Type Severity Reaction Status Date / Time No Known Allergies Allergy Verified 12/22/16 11:49 Home Meds: Home Meds Lisinopril 20 mg PO DAILY 07/17/14 [History] Carvedilol [Coreg] 6.25 mg PO BIDMEALS 10/18/15 [History] Spironolactone [Aldactone] 25 mg PO DAILY 10/18/15 [History] Omeprazole 20 mg PO ACBREAKFAST #30 cap.cr 12/10/16 [Rx] Furosemide [Lasix] 40 mg PO BID #30 tablet 12/19/16 [Rx] Past Medical History - Past Health History Medical/Surgical History: Denies Medical/Surgical History HEENT History: Reports: None Cardiovascular History: Reports: Cardiomyopathy, Heart Failure, Hypertension Respiratory History: Reports: SOB Gastrointestinal History: Reports: GERD Genitourinary History: Reports: Other (See Below) Other Genitourinary History: liver issues r/t ETOH Musculoskeletal History: Reports: Other (See Below) Other Musculoskeletal History: torn left and right upper arm tendon Neurological History: Reports: None Psychiatric History: Reports: Addiction, Anxiety Endocrine/Metabolic History: Reports: None Hematologic History: Reports: None Immunologic History: Reports: None Oncologic (Cancer) History: Reports: None Dermatologic History: Reports: None - Infectious Disease History Infectious Disease History: Reports: None - Past Surgical History Head Surgeries/Procedures: Reports: None Cardiovascular Surgical History: Reports: Percutaneous Transluminal Angioplasty Social & Family History - Family History Family Medical History: Noncontributory Cardiac: Reports: Hypertension Other Cardiac Family History: Dad and paternal grandmother have hypertension. Respiratory: Reports: Asthma Other Respiratory Family Hisory: Mom and dad have asthma. Endocrine/Metabolic: Reports: Diabetes, Type I Other Endocrine/Metabolic Family History: Dad and paternal grandmother have type I diabetes. - Tobacco Use Smoking Status *Q: Current Every Day Smoker Years of Tobacco use: 9 Packs/Tins Daily: 0.2 Used Tobacco, but Quit: No Second Hand Smoke Exposure: Yes - Caffeine Use Caffeine Use: Reports: Coffee, Soda - Alcohol Use Days Per Week of Alcohol Use: 3 Number of Drinks Per Day: 12 Total Drinks Per Week: 36 - Recreational Drug Use Recreational Drug Use: Yes Drug Use in Last 12 Months: Yes Recreational Drug Type: Reports: Marijuana/Hashish, Methamphetamine Other Recreational Drug Type: meth over a month ago Recreational Drug Use Frequency: Socially Recreational Drug Last Use: yesterday - Living Situation & Occupation Living situation: Reports: with Family ED ROS GENERAL - Review of Systems Review Of Systems: ROS reveals no pertinent complaints other than HPI. ED EXAM, GENERAL - Physical Exam Exam: See Below Exam Limited By: No Limitations General Appearance: Alert, WD/WN, No Apparent Distress Eye Exam: Bilateral Eye: Normal Inspection Ears: Normal External Exam, Hearing Grossly Normal Nose: Normal Inspection Throat/Mouth: Normal Inspection, Normal Voice, No Airway Compromise Head: Atraumatic, Normocephalic Neck: Normal Inspection, Supple, Non-Tender, Full Range of Motion Respiratory/Chest: No Respiratory Distress, No Accessory Muscle Use, Chest Non- Tender, Decreased Breath Sounds Cardiovascular: Normal Peripheral Pulses, Regular Rate, Rhythm, No Edema, No Gallop, No JVD, No Murmur, No Rub Peripheral Pulses: 2+: Radial (L), Radial (R) GI/Abdominal: Normal Bowel Sounds, Soft, Non-Tender, No Organomegaly, No Distention, No Abnormal Bruit, No Mass (Male) Exam: Deferred Rectal (Males) Exam: Deferred Back Exam: Normal Inspection, Full Range of Motion Extremities: Normal Inspection, Normal Range of Motion, Non-Tender, No Pedal Edema, Normal Capillary Refill Neurological: Alert, Oriented, Normal Cognition, Normal Gait, Normal Reflexes, No Motor/Sensory Deficits Psychiatric: Normal Affect, Normal Mood Skin Exam: Warm, Dry, Intact, Normal Color, No Rash Lymphatic: No Adenopathy Course - Vital Signs Last Recorded V/S: Last Vital Signs Temp 97.3 F 12/22/16 11:40 Pulse 96 12/22/16 11:40 Resp 16 12/22/16 11:40 BP 124/84 12/22/16 11:40 Pulse Ox 100 12/22/16 11:40 - Orders/Labs/Meds Orders: Active Orders 24 hr Category Date Time Status Peripheral IV Care [RC] . DIRECTED Care 12/22/16 11:49 Inactive Labs: Laboratory Tests 12/22/16 12/22/16 12/22/16 Range/Units 11:57 11:57 12:02 WBC 7.2 (5.0-10.0) 10^3/uL RBC 5.60 (4.6-6.2) 10^6/uL Hgb 16.0 D (14.0-18.0) g/dL Hct 49.3 (40.0-54.0) % MCV 88.0 (80-100) fL MCH 28.6 (27.0-34.0) pg MCHC 32.5 L (33.0-35.0) g/dL Plt Count 242 (150-450) 10^3/uL Neut % (Auto) 77.4 H (42.2-75.2) % Lymph % (Auto) 11.2 L (20.5-50.1) % [place] % (Auto) 7.4 (2-8) % Eos % (Auto) 3.3 H (1.0-3.0) % Baso % (Auto) 0.7 (0.0-1.0) % Sodium 136 (135-145) mmol/L Potassium 3.9 (3.6-5.0) mmol/L Chloride 103 (101-111) mmol/L Carbon Dioxide 24.0 (21.0-31.0) mmol/L Anion Gap 12.9 BUN 18 (7-18) mg/dL Creatinine 0.7 (0.6-1.3) mg/dL Est Cr Clr Drug Dosing 127.65 mL/min Estimated GFR (MDRD) > 60 BUN/Creatinine Ratio 25.71 Glucose 90 (74-105) mg/dL Calcium 9.2 (8.4-10.2) mg/dl Total Bilirubin 1.4 H (0.2-1.0) mg/dL AST 66 H (10-42) IU/L ALT 122 H (10-60) IU/L Alkaline Phosphatase 107 (42-121) IU/L B-Natriuretic Peptide 1110 H (0-100) pg/ml Total Protein 7.7 (6.7-8.2) g/dl Albumin 3.6 (3.2-5.5) g/dl Globulin 4.1 Albumin/Globulin Ratio 0.88 Urine Color (YELLOW) Urine Appearance (CLEAR) Urine pH (5.0-9.0) Ur Specific [place] (1.005-1.030) Urine Protein (NEGATIVE) Urine Glucose (UA) (NEGATIVE) Urine Ketones (NEGATIVE) Urine Occult Blood (NEGATIVE) Urine Nitrite (NEGATIVE) Urine Bilirubin (NEGATIVE) Urine Urobilinogen (0.2-1.0) mg/dL Ur Leukocyte Esterase (NEGATIVE) Urine RBC /HPF Urine WBC (0-5/HPF) /HPF Ur Epithelial Cells /HPF Amorphous Sediment (0/HPF) /HPF Urine Opiates Screen Negative (NEGATIVE) Ur Oxycodone Screen Positive H (NEGATIVE) Urine Methadone Screen Negative (NEGATIVE) Ur Barbiturates Screen Negative (NEGATIVE) U Tricyclic Antidepress Negative (NEGATIVE) Ur Phencyclidine Scrn Negative (NEGATIVE) Ur Amphetamine Screen Negative (NEGATIVE) U Methamphetamines Scrn Negative (NEGATIVE) Urine MDMA Screen Negative (NEGATIVE) U Benzodiazepines Scrn Negative (NEGATIVE) Urine Cocaine Screen Negative (NEGATIVE) U Marijuana (THC) Screen Negative (NEGATIVE) 12/22/16 Range/Units 12:02 WBC (5.0-10.0) 10^3/uL RBC (4.6-6.2) 10^6/uL Hgb (14.0-18.0) g/dL Hct (40.0-54.0) % MCV (80-100) fL MCH (27.0-34.0) pg MCHC (33.0-35.0) g/dL Plt Count (150-450) 10^3/uL Neut % (Auto) (42.2-75.2) % Lymph % (Auto) (20.5-50.1) % [place] % (Auto) (2-8) % Eos % (Auto) (1.0-3.0) % Baso % (Auto) (0.0-1.0) % Sodium (135-145) mmol/L Potassium (3.6-5.0) mmol/L Chloride (101-111) mmol/L Carbon Dioxide (21.0-31.0) mmol/L Anion Gap BUN (7-18) mg/dL Creatinine (0.6-1.3) mg/dL Est Cr Clr Drug Dosing mL/min Estimated GFR (MDRD) BUN/Creatinine Ratio Glucose (74-105) mg/dL Calcium (8.4-10.2) mg/dl Total Bilirubin (0.2-1.0) mg/dL AST (10-42) IU/L ALT (10-60) IU/L Alkaline Phosphatase (42-121) IU/L B-Natriuretic Peptide (0-100) pg/ml Total Protein (6.7-8.2) g/dl Albumin (3.2-5.5) g/dl Globulin Albumin/Globulin Ratio Urine Color Dark yellow (YELLOW) Urine Appearance Slightly cloudy (CLEAR) Urine pH 6.0 (5.0-9.0) Ur Specific [place] 1.010 (1.005-1.030) Urine Protein Negative (NEGATIVE) Urine Glucose (UA) Negative (NEGATIVE) Urine Ketones Negative (NEGATIVE) Urine Occult Blood Small H (NEGATIVE) Urine Nitrite Negative (NEGATIVE) Urine Bilirubin Negative (NEGATIVE) Urine Urobilinogen 1.0 (0.2-1.0) mg/dL Ur Leukocyte Esterase Negative (NEGATIVE) Urine RBC 5-10 H /HPF Urine WBC Not seen (0-5/HPF) /HPF Ur Epithelial Cells Rare /HPF Amorphous Sediment Rare (0/HPF) /HPF Urine Opiates Screen (NEGATIVE) Ur Oxycodone Screen (NEGATIVE) Urine Methadone Screen (NEGATIVE) Ur Barbiturates Screen (NEGATIVE) U Tricyclic Antidepress (NEGATIVE) Ur Phencyclidine Scrn (NEGATIVE) Ur Amphetamine Screen (NEGATIVE) U Methamphetamines Scrn (NEGATIVE) Urine MDMA Screen (NEGATIVE) U Benzodiazepines Scrn (NEGATIVE) Urine Cocaine Screen (NEGATIVE) U Marijuana (THC) Screen (NEGATIVE) Departure - Departure Time of Disposition: 13:57 Disposition: Against Medical Advice 07 Clinical Impression: CHF (congestive heart failure) Qualifiers: Congestive heart failure type: unspecified congestive heart failure type Congestive heart failure chronicity: acute Qualified Code(s): I50.9 - Heart failure, unspecified - Discharge Information Care Plan Goals: Patient left the ER without telling staff, prior to receiving results. - My Orders Last 24 Hours: My Active Orders 12/22/16 11:49 Peripheral IV Care [RC] . DIRECTED - Assessment/Plan Last 24 Hours: My Active Orders 12/22/16 11:49 Peripheral IV Care [RC] . DIRECTED
[2016-12-22 12:23] LABS: CHLORIDE,CL 103 mmol/L (101-111); SODIUM,NA 136 mmol/L (135-145)
== END 2016-12-22 13:10 | disposition left against medical advice (07) ==
LOC: DL.ED 11:35
DX: I11.0 Hypertensive heart disease with heart failure (principal); I50.9 Heart failure, unspecified; Z79.899 Other long term (current) drug therapy; K21.9 Gastro-esophageal reflux disease without esophagitis; F17.210 Nicotine dependence, cigarettes, uncomplicated
CPT/HCPCS: 36415; 80053; 80305; 81001; 83880; 85025; 99284

== ENCOUNTER 2017-01-25 23:27 | Observation (INO) | payer MEDICAID, OTHER ==
[2017-01-25] MEDS ORDERED: Ondansetron 4 MG/2 ML SDV IV ONE (23:46)
--- NOTE | 2017-01-25 23:49 | EDM.PDOC ---
ED HPI GENERAL MEDICAL PROBLEM - General Chief Complaint: Gastrointestinal Problem Stated Complaint: AMBULANCE Time Seen by Provider: 01/25/17 23:47 Source of Information: Reports: Patient History Limitations: Reports: No Limitations - History of Present Illness INITIAL COMMENTS - FREE TEXT/NARRATIVE: gives 2 days h/o V/D and lung feel like it's filling up from CHF. Epigastric Pain Score (Numeric/FACES): 7 - Related Data Allergies Allergy/AdvReac Type Severity Reaction Status Date / Time No Known Allergies Allergy Verified 01/25/17 23:26 Home Meds: Home Meds Lisinopril 20 mg PO DAILY 07/17/14 [History] Carvedilol [Coreg] 6.25 mg PO BIDMEALS 10/18/15 [History] Spironolactone [Aldactone] 25 mg PO DAILY 10/18/15 [History] Omeprazole 20 mg PO ACBREAKFAST #30 cap.cr 12/10/16 [Rx] Furosemide [Lasix] 40 mg PO BID #30 tablet 12/19/16 [Rx] Past Medical History - Past Health History Medical/Surgical History: Denies Medical/Surgical History HEENT History: Reports: None Cardiovascular History: Reports: Cardiomyopathy, Heart Failure, Hypertension Respiratory History: Reports: SOB Gastrointestinal History: Reports: GERD Genitourinary History: Reports: Other (See Below) Other Genitourinary History: liver issues r/t ETOH Musculoskeletal History: Reports: Other (See Below) Other Musculoskeletal History: torn left and right upper arm tendon Neurological History: Reports: None Psychiatric History: Reports: Addiction, Anxiety Endocrine/Metabolic History: Reports: None Hematologic History: Reports: None Immunologic History: Reports: None Oncologic (Cancer) History: Reports: None Dermatologic History: Reports: None - Infectious Disease History Infectious Disease History: Reports: None - Past Surgical History Head Surgeries/Procedures: Reports: None Cardiovascular Surgical History: Reports: Percutaneous Transluminal Angioplasty Social & Family History - Family History Family Medical History: Noncontributory Cardiac: Reports: Hypertension Other Cardiac Family History: Dad and paternal grandmother have hypertension. Respiratory: Reports: Asthma Other Respiratory Family Hisory: Mom and dad have asthma. Endocrine/Metabolic: Reports: Diabetes, Type I Other Endocrine/Metabolic Family History: Dad and paternal grandmother have type I diabetes. - Tobacco Use Smoking Status *Q: Current Every Day Smoker Years of Tobacco use: 10 Packs/Tins Daily: 0.3 Used Tobacco, but Quit: No Second Hand Smoke Exposure: Yes - Caffeine Use Caffeine Use: Reports: Coffee, Soda - Alcohol Use Days Per Week of Alcohol Use: 3 Number of Drinks Per Day: 12 Total Drinks Per Week: 36 - Recreational Drug Use Recreational Drug Use: Yes Drug Use in Last 12 Months: Yes Recreational Drug Type: Reports: Marijuana/Hashish Other Recreational Drug Type: meth over a month ago Recreational Drug Use Frequency: Socially Recreational Drug Last Use: yesterday - Living Situation & Occupation Living situation: Reports: with Family ED ROS GENERAL - Review of Systems Review Of Systems: ROS reveals no pertinent complaints other than HPI. ED EXAM, GI/ABD - Physical Exam Exam: See Below Exam Limited By: No Limitations General Appearance: Alert, WD/WN, Mild Distress, Other (distraught) Ears: Hearing Grossly Normal Throat/Mouth: Normal Voice, No Airway Compromise Head: Atraumatic Neck: Non-Tender, Full Range of Motion Respiratory/Chest: No Respiratory Distress, No Accessory Muscle Use, Crackles, Rales, Rhonchi. No: Decreased Breath Sounds, Retractions, Prolonged Expiration Cardiovascular: Regular Rate, Rhythm GI/Abdominal Exam: Soft, Tender, Other (periumb discomfort). No: Distended, Guarding, Rigid, Rebound Neurological: Alert, Oriented, Normal Cognition, Normal Gait, No Motor/Sensory Deficits Psychiatric: Flat Affect Skin Exam: Warm, Dry, Normal Color Lymphatic: No Adenopathy Course - Vital Signs Last Recorded V/S: Last Vital Signs Temp 36.6 C 01/25/17 23:22 Pulse 102 H 01/25/17 23:22 Resp 21 H 01/25/17 23:22 BP 129/87 01/25/17 23:22 Pulse Ox 99 01/25/17 23:22 - Orders/Labs/Meds Labs: Laboratory Tests 01/25/17 01/25/17 Range/Units 23:54 23:54 WBC 7.4 (5.0-10.0) 10^3/uL RBC 4.54 L (4.6-6.2) 10^6/uL Hgb 13.1 L D (14.0-18.0) g/dL Hct 40.5 (40.0-54.0) % MCV 89.2 (80-100) fL MCH 28.9 (27.0-34.0) pg MCHC 32.3 L (33.0-35.0) g/dL Plt Count 199 (150-450) 10^3/uL Neut % (Auto) 76.8 H (42.2-75.2) % Lymph % (Auto) 17.2 L (20.5-50.1) % [place] % (Auto) 5.2 (2-8) % Eos % (Auto) 0.3 L (1.0-3.0) % Baso % (Auto) 0.5 (0.0-1.0) % Sodium 142 (135-145) mmol/L Potassium 3.5 L (3.6-5.0) mmol/L Chloride 107 (101-111) mmol/L Carbon Dioxide 18.0 L (21.0-31.0) mmol/L Anion Gap 20.5 BUN 12 (7-18) mg/dL Creatinine 0.6 (0.6-1.3) mg/dL Est Cr Clr Drug Dosing 148.93 mL/min Estimated GFR (MDRD) > 60 BUN/Creatinine Ratio 20.00 Glucose 107 H (74-105) mg/dL Calcium 8.5 (8.4-10.2) mg/dl Total Bilirubin 2.8 H (0.2-1.0) mg/dL AST 198 H (10-42) IU/L ALT 99 H (10-60) IU/L Alkaline Phosphatase 88 (42-121) IU/L B-Natriuretic Peptide 1900 H (0-100) pg/ml Total Protein 6.8 (6.7-8.2) g/dl Albumin 3.4 (3.2-5.5) g/dl Globulin 3.4 Albumin/Globulin Ratio 1.00 Amylase 36 (28-100) U/L Lipase 15 L (22-51) U/L Ethyl Alcohol 92 mg/dL Meds: Medications Discontinued Medications Generic Name Dose Route Start Last Admin Trade Name Freq PRN Reason Stop Dose Admin Furosemide 20 mg 01/26/17 00:52 Lasix IVPUSH 01/26/17 00:53 ONETIME ONE Morphine Sulfate 2 mg 01/26/17 00:52 Morphine IVPUSH 01/26/17 00:53 ONETIME ONE Ondansetron HCl 4 mg 01/25/17 23:46 01/25/17 23:50 Zofran IV 01/25/17 23:47 4 mg ONETIME ONE Administration - Re-Assessments/Exams Free Text/Narrative Re-Assessment/Exam: 01/26/17 00:[address] Norris who kindly admitted pt to observation Departure - Departure Time of Disposition: 00:53 Disposition: Home, Self-Care 01 Condition: Fair Clinical Impression: Vomiting, Diarrhea CHF (congestive heart failure) Qualifiers: Congestive heart failure type: unspecified congestive heart failure type Congestive heart failure chronicity: acute Qualified Code(s): I50.9 - Heart failure, unspecified - Discharge Information Forms: ED Department Discharge
[2017-01-26 00:20] LABS: CHLORIDE,CL 107 mmol/L (101-111); SODIUM,NA 142 mmol/L (135-145)
[2017-01-26] MEDS ORDERED: Morphine 2 MG/ML Syringe IVPUSH ONE (00:52)
[2017-01-26] MEDS ORDERED: Furosemide 20 MG/2 ML VIAL IVPUSH ONE (00:52)
[2017-01-26] MEDS ORDERED: Zolpidem 5 MG Tab PO PRN (01:48)
[2017-01-26] MEDS ORDERED: Ondansetron 4 MG/2 ML SDV IVPUSH PRN (01:48)
[2017-01-26] MEDS ORDERED: Sodium Chloride 0.9% 10 ML Syringe FLUSH PRN (01:48)
[2017-01-26] MEDS ORDERED: Potassium Chloride 10 MEQ Tab.ER PO ONE (02:02)
--- NOTE | 2017-01-26 02:03 | PCM.HP ---
H&P History of Present Illness - General Date of Service: 01/26/17 Admit Problem/Dx: Admission Diagnosis/Problem Admission Diagnosis/Problem Nausea and vomiting Source of Information: Patient, Provider (ER physician) - History of Present Illness Initial Comments - Free Text/Narative: The patient is a 51-year-old gentleman with a history of fall, use. The patient has a history of systolic congestive heart failure with cardiomegaly, I ventricular pacemaker. The patient presented that for 2 days he has been nauseous vomiting having diarrhea. He was not able to take his medications at home. He was able to drink a few beers every day. More heavy alcohol intake was a few days ago. He has been smoking marijuana as well has been smoking traditional cigarettes as well. He was feeling increasingly short of breath. No associated chest pain except with the with the nausea and vomiting. No black or bloody bowel movement. Epigastric Pain Score (Numeric/FACES): 7 - Related Data Allergies/Adverse Reactions: Allergies Allergy/AdvReac Type Severity Reaction Status Date / Time No Known Allergies Allergy Verified 01/25/17 23:26 Home Medications: Home Meds Lisinopril 20 mg PO DAILY 07/17/14 [History] Carvedilol [Coreg] 6.25 mg PO BIDMEALS 10/18/15 [History] Spironolactone [Aldactone] 25 mg PO DAILY 10/18/15 [History] Omeprazole 20 mg PO ACBREAKFAST #30 cap.cr 12/10/16 [Rx] Furosemide [Lasix] 40 mg PO BID #30 tablet 12/19/16 [Rx] Sertraline [Zoloft] 50 mg PO DAILY 01/26/17 [History] Past Medical History - Past Health History Medical/Surgical History: Denies Medical/Surgical History HEENT History: Reports: None Cardiovascular History: Reports: Cardiomyopathy, Heart Failure, Hypertension Respiratory History: Reports: SOB Gastrointestinal History: Reports: GERD Genitourinary History: Reports: Other (See Below) Other Genitourinary History: liver issues r/t ETOH Musculoskeletal History: Reports: Other (See Below) Other Musculoskeletal History: torn left and right upper arm tendon Neurological History: Reports: None Psychiatric History: Reports: Addiction, Anxiety Endocrine/Metabolic History: Reports: None Hematologic History: Reports: None Immunologic History: Reports: None Oncologic (Cancer) History: Reports: None Dermatologic History: Reports: None - Infectious Disease History Infectious Disease History: Reports: None - Past Surgical History Head Surgeries/Procedures: Reports: None Cardiovascular Surgical History: Reports: Percutaneous Transluminal Angioplasty Social & Family History - Family History Family Medical History: Noncontributory Cardiac: Reports: Hypertension Other Cardiac Family History: Dad and paternal grandmother have hypertension. Respiratory: Reports: Asthma Other Respiratory Family Hisory: Mom and dad have asthma. Endocrine/Metabolic: Reports: Diabetes, Type I Other Endocrine/Metabolic Family History: Dad and paternal grandmother have type I diabetes. - Tobacco Use Smoking Status *Q: Current Every Day Smoker Years of Tobacco use: 9 Packs/Tins Daily: 0.5 Used Tobacco, but Quit: No Second Hand Smoke Exposure: Yes - Caffeine Use Caffeine Use: Reports: Coffee, Soda - Alcohol Use Days Per Week of Alcohol Use: 1 Number of Drinks Per Day: 12 Total Drinks Per Week: 12 Date of Last Drink: 01/20/17 Time of Last Drink: 10:00 - Recreational Drug Use Recreational Drug Use: Yes Drug Use in Last 12 Months: Yes Recreational Drug Type: Reports: Marijuana/Hashish, Methamphetamine Other Recreational Drug Type: meth over a month ago Recreational Drug Use Frequency: Weekly Recreational Drug Last Use: yesterday - Living Situation & Occupation Living situation: Reports: with Family H&P Review of Systems - Review of Systems: Review Of Systems: See Below General: Denies: Fever, Chills Pulmonary: Reports: Shortness of Breath. Denies: Wheezing Cardiovascular: Denies: Chest Pain Gastrointestinal: Reports: Abdominal Pain (With vomiting) Genitourinary: Denies: Dysuria Psychiatric: Denies: Confusion Exam - Exam Exam: See Below - Vital Signs Vital Signs: Last Vital Signs Temp 37.0 C 01/26/17 01:19 Pulse 107 H 01/26/17 01:19 Resp 16 01/26/17 01:19 BP 125/100 H 01/26/17 01:19 Pulse Ox 98 01/26/17 01:19 Weight: 85.984 kg - Exam General: Alert, Oriented Neck: Supple Lungs: Clear to Auscultation, Normal Respiratory Effort. No: Rales, Wheezing Cardiovascular: Regular Rate, Regular Rhythm, Systolic Murmur GI/Abdominal Exam: Normal Bowel Sounds, Soft, Non-Tender Extremities: No Pedal Edema Skin: Warm, Dry (Social with) Neurological: Cranial Nerves Intact Neuro Extensive - Mental Status: Alert, Oriented x3, Normal Mood/Affect Psychiatric: Alert, Normal Affect, Normal Mood - Patient Data Result Diagrams: 01/25/17 23:54 01/25/17 23:54 Imaging Impressions Last 24 hrs: Chest x-ray per my reading shows cardiomegaly, no effusion. *Q Meaningful Use (ADM) - VTE *Q VTE Criteria *Q: - Stroke *Q Stroke Criteria *Q: - AMI *Q AMI Criteria *Q: - Problem List (1) Chronic systolic HF (heart failure) SNOMED Code(s): 427907545 ICD Code: I50.22 - CHRONIC SYSTOLIC (CONGESTIVE) HEART FAILURE Status: Acute Current Visit: Yes (2) Diarrhea SNOMED Code(s): 76890398 ICD Code: R19.7 - DIARRHEA, UNSPECIFIED Status: Acute Current Visit: Yes (3) Vomiting SNOMED Code(s): 329311439 ICD Code: R11.10 - VOMITING, UNSPECIFIED Status: Acute Current Visit: Yes (4) Acute alcoholic gastritis SNOMED Code(s): 3841836 ICD Code: K29.20 - ALCOHOLIC GASTRITIS WITHOUT BLEEDING Status: Acute Current Visit: No Qualifiers: Gastritis bleeding: without bleeding Qualified Code(s): K29.20 - Alcoholic gastritis without bleeding (5) Shortness of breath SNOMED Code(s): 529123422 ICD Code: R06.02 - SHORTNESS OF BREATH Status: Acute Current Visit: No Problem List Initiated/Reviewed/Updated: Yes Orders Last 24hrs: Active Orders 24 hr Category Date Time Status Patient Status [ADT] Routine ADT 01/26/17 01:48 Ordered Antiembolic Devices [RC] PER UNIT ROUTINE Care 01/26/17 01:54 Ordered Oxygen Therapy [RC] PRN Care 01/26/17 01:48 Ordered Peripheral IV Care [RC] . DIRECTED Care 01/26/17 01:54 Ordered Up With Assistance [RC] ASDIRECTED Care 01/26/17 01:48 Ordered VTE/DVT Education [RC] PER UNIT ROUTINE Care 01/26/17 01:48 Ordered Vital Signs [RC] Q4H Care 01/26/17 01:48 Ordered Clear Liquid Diet [DIET] Diet 01/26/17 Breakfast Ordered BASIC METABOLIC PANEL,BMP [CHEM] AM Lab 01/26/17 05:11 Ordered CBC W/O DIFF,HEMOGRAM [HEME] AM Lab 01/26/17 05:11 Ordered MAGNESIUM [CHEM] AM Lab 01/26/17 05:11 Ordered PHOSPHORUS [CHEM] AM Lab 01/26/17 05:11 Ordered Acetaminophen [Tylenol] Med 01/26/17 01:48 Ordered 650 mg PO Q4H PRN Aspirin Med 01/26/17 08:00 Ordered 81 mg PO WITHBREAKFAST Carvedilol [Coreg] Med 01/26/17 08:00 Ordered 6.25 mg PO BIDMEALS Furosemide [Lasix] Med 01/26/17 09:00 Ordered 40 mg PO BID Heparin Sodium Med 01/26/17 06:00 Ordered 5,000 units SUBCUT Q8HR Ibuprofen [Motrin] Med 01/26/17 01:48 Ordered 400 mg PO Q6H PRN Lisinopril [Prinivil] Med 01/26/17 09:00 Ordered 20 mg PO DAILY Nicotine [Habitrol] Med 01/26/17 09:00 Ordered 14 mg TRDERM DAILY Omeprazole Med 01/26/17 06:00 Ordered 20 mg PO ACBREAKFAST Ondansetron [Zofran ODT] Med 01/26/17 01:48 Ordered 4 mg PO Q6H PRN Ondansetron [Zofran] Med 01/26/17 01:48 Ordered 4 mg IVPUSH Q6H PRN Pantoprazole [ProTONIX] Med 01/26/17 02:00 Ordered 40 mg PO BIDAC Sertraline [Zoloft] Med 01/26/17 09:00 Ordered 50 mg PO DAILY Sodium Chloride 0.9% [Saline Flush] Med 01/26/17 01:48 Ordered 10 ml FLUSH ASDIRECTED PRN Spironolactone [Aldactone] Med 01/26/17 09:00 Ordered 25 mg PO DAILY Zolpidem [Ambien] Med 01/26/17 01:48 Ordered 5 mg PO BEDTIME PRN Antiembolic Hose [OM.PC] Per Unit Routine Oth 01/26/17 01:51 Ordered Peripheral IV Insertion Adult [OM.PC] Routine Oth 01/26/17 01:48 Ordered Saline Lock Insert [OM.PC] Routine Oth 01/26/17 01:48 Ordered Resuscitation Status Routine Resus Stat 01/26/17 01:48 Ordered Medication Orders Acetaminophen (Tylenol) 650 mg PO Q4H PRN PRN Reason: Pain (Mild 1-3)/fever Aspirin (Aspirin) 81 mg PO WITHBREAKFAST [facility] Carvedilol (Coreg) 6.25 mg PO BIDMEALS [facility] Furosemide (Lasix) 40 mg PO BID [facility] Heparin Sodium (Porcine) (Heparin Sodium) 5,000 units SUBCUT Q8HR [facility] Ibuprofen (Motrin) 400 mg PO Q6H PRN PRN Reason: Pain (mild 1-3) Lisinopril (Prinivil) 20 mg PO DAILY [facility] Nicotine (Habitrol) 14 mg TRDERM DAILY [facility] Omeprazole (Omeprazole) 20 mg PO ACBREAKFAST [facility] Ondansetron HCl (Zofran Odt) 4 mg PO Q6H PRN PRN Reason: nausea, able to take PO Ondansetron HCl (Zofran) 4 mg IVPUSH Q6H PRN PRN Reason: Nausea/Vomiting Pantoprazole Sodium (Protonix) 40 mg PO BIDAC [facility] Sertraline HCl (Zoloft) 50 mg PO DAILY [facility] Sodium Chloride (Saline Flush) 10 ml FLUSH ASDIRECTED PRN PRN Reason: Keep Vein Open Spironolactone (Aldactone) 25 mg PO DAILY [facility] Zolpidem Tartrate (Ambien) 5 mg PO BEDTIME PRN PRN Reason: Sleep Assessment/Plan Comment:: Nausea, vomiting Likely associated with alcoholic gastritis Will start the patient on Protonix Use antiemetics as needed Clear liquid diet Chronic systolic congestive heart failure We will continue the patient on Lasix and spironolactone Will treat with TREVIN inhibitor and Coreg Start baby aspirin Elevated liver enzymes due to alcohol abuse and congestive heart failure Alcohol cessation was discussed Smoking cessation was discussed, use nicotine patch Suggested not to use marijuana, methamphetamine use since that can cause nausea and vomiting as well Avoid narcotics use, try to minimalize Motrin and Tylenol use as well DVT prophylaxis with subcutaneous heparin
[2017-01-26] MEDS ORDERED: Pantoprazole 40 MG Tab.CR PO ONE (02:15)
[2017-01-26] MEDS ORDERED: Omeprazole 20 MG Cap.CR PO SCH (06:00)
[2017-01-26] MEDS: Heparin Sodium 5,000 Units/ML Vial SUBCUT SCH ×3 (06:02→22:38)
[2017-01-26] MEDS: LORazepam 1 MG Tab PO PRN ×4 (06:49→20:14)
[2017-01-26 07:15] LABS: CHLORIDE,CL 105 mmol/L (101-111); SODIUM,NA 138 mmol/L (135-145)
[2017-01-26] MEDS: Aspirin 81 MG Tab.Chew PO SCH (08:30)
[2017-01-26] MEDS: Sertraline 50 MG Tab PO SCH (08:30)
[2017-01-26] MEDS: Furosemide 40 MG Tab PO SCH ×2 (08:31→13:52)
[2017-01-26] MEDS: Carvedilol 6.25 MG Tab PO SCH ×2 (08:31→18:01)
[2017-01-26] MEDS: Lisinopril 20 MG Tab PO SCH (08:31)
[2017-01-26] MEDS: Ondansetron 4 MG Tab.DIS PO PRN (08:31)
[2017-01-26] MEDS: Spironolactone 25 MG Tab PO SCH (08:32)
[2017-01-26] MEDS: Nicotine 14 MG/24 Hr Patch TRDERM SCH (08:32)
[2017-01-26] MEDS: Ibuprofen 400 MG Tab PO PRN ×2 (11:06→20:23)
[2017-01-26] MEDS: Pantoprazole 40 MG Tab.CR PO SCH (16:59)
[2017-01-26] MEDS: Acetaminophen 325 MG Tab PO PRN (20:24)
[2017-01-27] MEDS: LORazepam 1 MG Tab PO PRN ×4 (00:32→21:33)
[2017-01-27] MEDS: Heparin Sodium 5,000 Units/ML Vial SUBCUT SCH ×3 (06:23→21:31)
[2017-01-27] MEDS: Pantoprazole 40 MG Tab.CR PO SCH ×2 (06:23→17:43)
[2017-01-27 08:24] LABS: CHLORIDE,CL 102 mmol/L (101-111); SODIUM,NA 137 mmol/L (135-145)
[2017-01-27] MEDS: Carvedilol 6.25 MG Tab PO SCH ×2 (09:08→17:43)
[2017-01-27] MEDS: Aspirin 81 MG Tab.Chew PO SCH (09:09)
[2017-01-27] MEDS: Furosemide 40 MG Tab PO SCH ×2 (09:09→13:32)
[2017-01-27] MEDS: Lisinopril 20 MG Tab PO SCH (09:09)
[2017-01-27] MEDS: Spironolactone 25 MG Tab PO SCH (09:11)
[2017-01-27] MEDS: Sertraline 50 MG Tab PO SCH (09:11)
[2017-01-27] MEDS: Nicotine 14 MG/24 Hr Patch TRDERM SCH (09:11)
[2017-01-27] MEDS ORDERED: Potassium Chloride 10 MEQ Tab.ER PO ONE (09:55)
--- NOTE | 2017-01-27 10:04 | PCM.PN ---
- General Info Date of Service: 01/27/17 Admission Dx/Problem (Free Text): Admission Diagnosis/Problem Admission Diagnosis/Problem Nausea and vomiting Subjective Update: The patient is still feeling weak, but improved. He says he still had 3-4 bowel movements over the night and 2 episodes of vomiting. Nursing staff did not observe any of this. The patient remained on clear liquid diet and tolerating that well. Even had crackers this morning without problems. Denies chest pain, no abdominal pain, no fever or chills. Functional Status: Reports: Tolerating Diet (Clear liquid only) - Review of Systems General: Reports: Weakness. Denies: Fever Pulmonary: Denies: Shortness of Breath Cardiovascular: Denies: Chest Pain Gastrointestinal: Reports: Diarrhea, Nausea, Vomiting. Denies: Abdominal Pain - Patient Data Vitals - Most Recent: Last Vital Signs Temp 36.5 C 01/27/17 07:00 Pulse 83 01/27/17 09:08 Resp 20 01/27/17 07:00 BP 98/79 01/27/17 09:09 Pulse Ox 98 01/27/17 07:00 Weight - Most Recent: 87.317 kg I&O - Last 24 Hours: Intake & Output 01/26/17 01/27/17 01/27/17 22:59 06:59 14:59 Intake Total 1550 Balance 1550 Lab Results Last 24 Hours: Laboratory Results - last 24 hr 01/27/17 01/27/17 Range/Units 07:41 07:41 WBC 6.6 (5.0-10.0) 10^3/uL RBC 4.36 L (4.6-6.2) 10^6/uL Hgb 12.7 L (14.0-18.0) g/dL Hct 39.0 L (40.0-54.0) % MCV 89.4 (80-100) fL MCH 29.1 (27.0-34.0) pg MCHC 32.6 L (33.0-35.0) g/dL Plt Count 187 (150-450) 10^3/uL Neut % (Auto) 61.8 (42.2-75.2) % Lymph % (Auto) 20.5 (20.5-50.1) % Weber % (Auto) 11.6 H (2-8) % Eos % (Auto) 5.2 H (1.0-3.0) % Baso % (Auto) 0.9 (0.0-1.0) % Sodium 137 (135-145) mmol/L Potassium 3.3 L (3.6-5.0) mmol/L Chloride 102 (101-111) mmol/L Carbon Dioxide 25.0 (21.0-31.0) mmol/L Anion Gap 13.3 BUN 18 (7-18) mg/dL Creatinine 1.2 (0.6-1.3) mg/dL Est Cr Clr Drug Dosing 75.91 mL/min Estimated GFR (MDRD) > 60 Glucose 118 H (74-105) mg/dL Calcium 8.3 L (8.4-10.2) mg/dl Med Orders - Current: Current Medications Acetaminophen (Tylenol) 650 mg PO Q4H PRN PRN Reason: Pain (Mild 1-3)/fever Last Admin: 01/26/17 20:24 Dose: 650 mg Aspirin (Aspirin) 81 mg PO WITHBREAKFAST [facility] Last Admin: 01/27/17 09:09 Dose: 81 mg Carvedilol (Coreg) 6.25 mg PO BIDMEALS [facility] Last Admin: 01/27/17 09:08 Dose: 6.25 mg Furosemide (Lasix) 40 mg PO BIDDIURETIC [facility] Last Admin: 01/27/17 09:09 Dose: 40 mg Heparin Sodium (Porcine) (Heparin Sodium) 5,000 units SUBCUT Q8HR [facility] Last Admin: 01/27/17 06:23 Dose: 5,000 units Ibuprofen (Motrin) 400 mg PO Q6H PRN PRN Reason: Pain (mild 1-3) Last Admin: 01/26/17 20:23 Dose: 400 mg Lisinopril (Prinivil) 20 mg PO DAILY [facility] Last Admin: 01/27/17 09:09 Dose: 20 mg Lorazepam (Ativan) 1 mg PO Q4H PRN PRN Reason: Anxiety Last Admin: 01/27/17 09:16 Dose: 1 mg Magnesium Oxide (Magnesium Oxide) 250 mg PO BIDM [facility] Stop: 01/27/17 18:01 Nicotine (Habitrol) 14 mg TRDERM DAILY [facility] Last Admin: 01/27/17 09:11 Dose: 14 mg Ondansetron HCl (Zofran Odt) 4 mg PO Q6H PRN PRN Reason: nausea, able to take PO Last Admin: 01/26/17 08:31 Dose: 4 mg Ondansetron HCl (Zofran) 4 mg IVPUSH Q6H PRN PRN Reason: Nausea/Vomiting Pantoprazole Sodium (Protonix) 40 mg PO BIDAC [facility] Last Admin: 01/27/17 06:23 Dose: 40 mg Potassium Chloride (Klor-Con 10) 20 meq PO ONETIME ONE Stop: 01/27/17 09:56 Sertraline HCl (Zoloft) 50 mg PO DAILY [facility] Last Admin: 01/27/17 09:11 Dose: 50 mg Sodium Chloride (Saline Flush) 10 ml FLUSH ASDIRECTED PRN PRN Reason: Keep Vein Open Spironolactone (Aldactone) 50 mg PO DAILY [facility] Zolpidem Tartrate (Ambien) 5 mg PO BEDTIME PRN PRN Reason: Sleep Last Admin: 01/27/17 00:46 Dose: 5 mg Discontinued Medications Furosemide (Lasix) 20 mg IVPUSH ONETIME ONE Stop: 01/26/17 00:53 Last Admin: 01/26/17 00:59 Dose: 20 mg Magnesium Oxide (Magnesium Oxide) 250 mg PO BIDM [facility] Stop: 01/26/17 18:01 Last Admin: 01/26/17 18:00 Dose: 250 mg Morphine Sulfate (Morphine) 2 mg IVPUSH ONETIME ONE Stop: 01/26/17 00:53 Last Admin: 01/26/17 00:59 Dose: 2 mg Omeprazole (Omeprazole) 20 mg PO ACBREAKFAST [facility] Ondansetron HCl (Zofran) 4 mg IV ONETIME ONE Stop: 01/25/17 23:47 Last Admin: 01/25/17 23:50 Dose: 4 mg Pantoprazole Sodium (Protonix) 40 mg PO ONETIME ONE Stop: 01/26/17 02:16 Last Admin: 01/26/17 02:12 Dose: 40 mg Potassium Chloride (Klor-Con 10) 40 meq PO ONETIME ONE Stop: 01/26/17 02:03 Last Admin: 01/26/17 02:12 Dose: 40 meq Spironolactone (Aldactone) 25 mg PO DAILY [facility] Last Admin: 01/27/17 09:11 Dose: 25 mg - Exam General: Alert, Oriented Lungs: Clear to Auscultation, Normal Respiratory Effort Cardiovascular: Regular Rate, Regular Rhythm GI/Abdominal Exam: Normal Bowel Sounds, Soft, Non-Tender Extremities: No Pedal Edema - Problem List & Annotations (1) Chronic systolic HF (heart failure) SNOMED Code(s): 771374127 Code(s): I50.22 - CHRONIC SYSTOLIC (CONGESTIVE) HEART FAILURE Status: Acute Current Visit: Yes (2) Diarrhea SNOMED Code(s): 63309981 Code(s): R19.7 - DIARRHEA, UNSPECIFIED Status: Acute Current Visit: Yes (3) Vomiting SNOMED Code(s): 822556409 Code(s): R11.10 - VOMITING, UNSPECIFIED Status: Acute Current Visit: Yes (4) Acute alcoholic gastritis SNOMED Code(s): 4999734 Code(s): K29.20 - ALCOHOLIC GASTRITIS WITHOUT BLEEDING Status: Acute Current Visit: No Qualifiers: Gastritis bleeding: without bleeding Qualified Code(s): K29.20 - Alcoholic gastritis without bleeding (5) Shortness of breath SNOMED Code(s): 799831137 Code(s): R06.02 - SHORTNESS OF BREATH Status: Acute Current Visit: No - Problem List Review Problem List Initiated/Reviewed/Updated: Yes - My Orders Last 24 Hours: My Active Orders 01/27/17 09:55 Potassium Chloride [Klor-Con 10] 20 meq PO ONETIME ONE 01/27/17 11:00 Magnesium Oxide 250 mg PO BIDM 01/27/17 Lunch Cardiac [Heart Healthy Diet] [DIET] 01/28/17 09:00 Spironolactone [Aldactone] 50 mg PO DAILY - Plan Plan:: Nausea, vomiting, diarrhea Likely associated with alcoholic gastritis Will treat the patient on Protonix Use antiemetics as needed Staff did not notice nausea vomiting nor diarrhea We will advance diet as tolerated Chronic systolic congestive heart failure We will continue the patient on Lasix and spironolactone Will treat with TREVIN inhibitor and Coreg Started baby aspirin Monitor blood pressure Hypokalemia We will replace Increase spironolactone Elevated liver enzymes due to alcohol abuse and congestive heart failure Alcohol cessation was discussed Smoking cessation was discussed, use nicotine patch Suggested not to use marijuana, methamphetamine use since that can cause nausea and vomiting as well Avoid narcotics use, try to minimalize Motrin and Tylenol use as well DVT prophylaxis with subcutaneous heparin
[2017-01-27] MEDS: Ibuprofen 400 MG Tab PO PRN ×2 (11:20→21:32)
[2017-01-27] MEDS: Ondansetron 4 MG Tab.DIS PO PRN (13:39)
[2017-01-28] MEDS: LORazepam 1 MG Tab PO PRN ×3 (01:32→12:34)
[2017-01-28] MEDS: Heparin Sodium 5,000 Units/ML Vial SUBCUT SCH (06:11)
[2017-01-28] MEDS: Pantoprazole 40 MG Tab.CR PO SCH (06:11)
[2017-01-28] MEDS: Ibuprofen 400 MG Tab PO PRN ×2 (06:12→12:34)
[2017-01-28] MEDS: Carvedilol 6.25 MG Tab PO SCH (07:55)
[2017-01-28] MEDS: Furosemide 40 MG Tab PO SCH (07:55)
[2017-01-28] MEDS: Aspirin 81 MG Tab.Chew PO SCH (07:55)
[2017-01-28] MEDS: Lisinopril 20 MG Tab PO SCH (08:14)
[2017-01-28] MEDS: Sertraline 50 MG Tab PO SCH (08:14)
[2017-01-28] MEDS: Acetaminophen 325 MG Tab PO PRN (08:14)
[2017-01-28] MEDS: Nicotine 14 MG/24 Hr Patch TRDERM SCH (08:15)
[2017-01-28] MEDS ORDERED: Spironolactone 25 MG Tab PO SCH (09:00)
--- NOTE | 2017-01-28 10:05 | PCM.DCSUM1 ---
Discharge Summary - Hospital Course Free Text/Narrative:: The patient presented with alcohol use, nausea, vomiting, diarrhea. Nausea, vomiting, diarrhea Likely associated with alcoholic gastritis Treated the patient with Protonix Staff did not notice nausea vomiting nor diarrhea Had a formed stool Has been tolerating diet. Chronic systolic congestive heart failure continue the patient on Lasix and spironolactone Treat with TREVIN inhibitor and Coreg Started baby aspirin Hypokalemia continue spironolactone monitor periodically as out pt Elevated liver enzymes due to alcohol abuse and congestive heart failure Alcohol cessation was discussed Smoking cessation was discussed, use nicotine patch Suggested not to use marijuana, methamphetamine use since that can cause nausea and vomiting as well - Discharge Data Discharge Date: 01/28/17 Discharge Disposition: Home, Self-Care 01 Condition: Good - Discharge Diagnosis/Problem(s) (1) Chronic systolic HF (heart failure) SNOMED Code(s): 084384070 ICD Code: I50.22 - CHRONIC SYSTOLIC (CONGESTIVE) HEART FAILURE Status: Acute Current Visit: Yes (2) Diarrhea SNOMED Code(s): 70590676 ICD Code: R19.7 - DIARRHEA, UNSPECIFIED Status: Acute Current Visit: Yes (3) Vomiting SNOMED Code(s): 539438584 ICD Code: R11.10 - VOMITING, UNSPECIFIED Status: Acute Current Visit: Yes (4) Acute alcoholic gastritis SNOMED Code(s): 7274329 ICD Code: K29.20 - ALCOHOLIC GASTRITIS WITHOUT BLEEDING Status: Acute Current Visit: No Qualifiers: Gastritis bleeding: without bleeding Qualified Code(s): K29.20 - Alcoholic gastritis without bleeding (5) Shortness of breath SNOMED Code(s): 948278452 ICD Code: R06.02 - SHORTNESS OF BREATH Status: Acute Current Visit: No - Patient Instructions Diet: Heart Healthy Diet Activity: As Tolerated - Discharge Plan Prescriptions/Med Rec: Aspirin 81 mg PO WITHBREAKFAST #30 tab.chew Furosemide [Lasix] 40 mg PO DAILY #30 tablet Ondansetron [Zofran ODT] 4 mg PO Q6H PRN #10 tab.dis PRN Reason: Nausea Home Medications: Home Meds Lisinopril 20 mg PO DAILY 07/17/14 [History] Carvedilol [Coreg] 6.25 mg PO BIDMEALS 10/18/15 [History] Spironolactone [Aldactone] 25 mg PO DAILY 10/18/15 [History] Omeprazole 20 mg PO ACBREAKFAST #30 cap.cr 12/10/16 [Rx] Sertraline [Zoloft] 50 mg PO DAILY 01/26/17 [History] Aspirin 81 mg PO WITHBREAKFAST #30 tab.chew 01/28/17 [Rx] Furosemide [Lasix] 40 mg PO DAILY #30 tablet 01/28/17 [Rx] Ondansetron [Zofran ODT] 4 mg PO Q6H PRN #10 tab.dis 01/28/17 [Rx] Referrals: PCP,Unobtain [Ordering Only Provider] - (In 2-3 days, check basic metabolic panel regarding diuretics) - Discharge Summary/Plan Comment DC Time >30 min.: No - General Info Date of Service: 01/28/17 Functional Status: Reports: Tolerating Diet - Review of Systems General: Denies: Fever Pulmonary: Denies: Shortness of Breath Cardiovascular: Denies: Chest Pain - Patient Data Vitals - Most Recent: Last Vital Signs Temp 36.6 C 01/28/17 07:00 Pulse 82 01/28/17 07:00 Resp 20 01/28/17 07:00 BP 124/59 L 01/28/17 08:14 Pulse Ox 98 01/28/17 07:00 Weight - Most Recent: 87.906 kg I&O - Last 24 hours: Intake & Output 01/27/17 01/28/17 01/28/17 22:59 06:59 14:59 Intake Total 200 250 Output Total 325 Balance -125 250 Lab Results - Last 24 hrs: Laboratory Results - last 24 hr 01/28/17 01/28/17 Range/Units 06:15 06:15 WBC 6.7 (5.0-10.0) 10^3/uL RBC 4.43 L (4.6-6.2) 10^6/uL Hgb 12.8 L (14.0-18.0) g/dL Hct 39.9 L (40.0-54.0) % MCV 90.1 (80-100) fL MCH 28.9 (27.0-34.0) pg MCHC 32.1 L (33.0-35.0) g/dL Plt Count 184 (150-450) 10^3/uL Neut % (Auto) 53.2 (42.2-75.2) % Lymph % (Auto) 30.1 (20.5-50.1) % [place] % (Auto) 10.9 H (2-8) % Eos % (Auto) 4.5 H (1.0-3.0) % Baso % (Auto) 1.3 H (0.0-1.0) % Sodium 138 (135-145) mmol/L Potassium 3.8 (3.6-5.0) mmol/L Chloride 104 (101-111) mmol/L Carbon Dioxide 25.0 (21.0-31.0) mmol/L Anion Gap 12.8 BUN 26 H (7-18) mg/dL Creatinine 1.4 H (0.6-1.3) mg/dL Est Cr Clr Drug Dosing 65.07 mL/min Estimated GFR (MDRD) 54 Glucose 103 (74-105) mg/dL Calcium 8.6 (8.4-10.2) mg/dl Med Orders - Current: Current Medications Acetaminophen (Tylenol) 650 mg PO Q4H PRN PRN Reason: Pain (Mild 1-3)/fever Last Admin: 01/28/17 08:14 Dose: 650 mg Aspirin (Aspirin) 81 mg PO WITHBREAKFAST [facility] [place] Last Admin: 01/28/17 07:55 Dose: 81 mg Carvedilol (Coreg) 6.25 mg PO BIDMEALS [facility] [place] Last Admin: 01/28/17 07:55 Dose: 6.25 mg Furosemide (Lasix) 40 mg PO DAILY [facility] [place] Heparin Sodium (Porcine) (Heparin Sodium) 5,000 units SUBCUT Q8HR [facility] [place] Last Admin: 01/28/17 06:11 Dose: 5,000 units Ibuprofen (Motrin) 400 mg PO Q6H PRN PRN Reason: Pain (mild 1-3) Last Admin: 01/28/17 06:12 Dose: 400 mg Lisinopril (Prinivil) 20 mg PO DAILY [facility] [place] Last Admin: 01/28/17 08:14 Dose: 20 mg Lorazepam (Ativan) 1 mg PO Q4H PRN PRN Reason: Anxiety Last Admin: 01/28/17 08:13 Dose: 1 mg Nicotine (Habitrol) 14 mg TRDERM DAILY [facility] [place] Last Admin: 01/28/17 08:15 Dose: 14 mg Ondansetron HCl (Zofran Odt) 4 mg PO Q6H PRN PRN Reason: nausea, able to take PO Last Admin: 01/27/17 13:39 Dose: 4 mg Ondansetron HCl (Zofran) 4 mg IVPUSH Q6H PRN PRN Reason: Nausea/Vomiting Pantoprazole Sodium (Protonix) 40 mg PO BIDAC ANGELIQUE Last Admin: 01/28/17 06:11 Dose: 40 mg Sertraline HCl (Zoloft) 50 mg PO DAILY [facility] [place] Last Admin: 01/28/17 08:14 Dose: 50 mg Sodium Chloride (Saline Flush) 10 ml FLUSH ASDIRECTED PRN PRN Reason: Keep Vein Open Spironolactone (Aldactone) 50 mg PO DAILY [facility] [place] Last Admin: 01/28/17 08:14 Dose: 50 mg Zolpidem Tartrate (Ambien) 5 mg PO BEDTIME PRN PRN Reason: Sleep Last Admin: 01/27/17 00:46 Dose: 5 mg Discontinued Medications Furosemide (Lasix) 20 mg IVPUSH ONETIME ONE Stop: 01/26/17 00:53 Last Admin: 01/26/17 00:59 Dose: 20 mg Furosemide (Lasix) 40 mg PO BIDDIURETIC [facility] [place] Last Admin: 01/28/17 07:55 Dose: 40 mg Magnesium Oxide (Magnesium Oxide) 250 mg PO BIDM [facility] [place] Stop: 01/26/17 18:01 Last Admin: 01/26/17 18:00 Dose: 250 mg Magnesium Oxide (Magnesium Oxide) 250 mg PO BIDM [facility] [place] Stop: 01/27/17 18:01 Last Admin: 01/27/17 17:43 Dose: 250 mg Morphine Sulfate (Morphine) 2 mg IVPUSH ONETIME ONE Stop: 01/26/17 00:53 Last Admin: 01/26/17 00:59 Dose: 2 mg Omeprazole (Omeprazole) 20 mg PO ACBREAKFAST [facility] [place] Ondansetron HCl (Zofran) 4 mg IV ONETIME ONE Stop: 01/25/17 23:47 Last Admin: 01/25/17 23:50 Dose: 4 mg Pantoprazole Sodium (Protonix) 40 mg PO ONETIME ONE Stop: 01/26/17 02:16 Last Admin: 01/26/17 02:12 Dose: 40 mg Potassium Chloride (Klor-Con 10) 40 meq PO ONETIME ONE Stop: 01/26/17 02:03 Last Admin: 01/26/17 02:12 Dose: 40 meq Potassium Chloride (Klor-Con 10) 20 meq PO ONETIME ONE Stop: 01/27/17 09:56 Last Admin: 01/27/17 11:20 Dose: 20 meq Spironolactone (Aldactone) 25 mg PO DAILY ANGELIQUE Last Admin: 01/27/17 09:11 Dose: 25 mg - Exam General: Reports: Alert, Oriented Lungs: Reports: Clear to Auscultation, Normal Respiratory Effort Cardiovascular: Reports: Regular Rate, Regular Rhythm GI/Abdominal Exam: Normal Bowel Sounds, Soft, Non-Tender, No Distention Extremities: No Pedal Edema Neurological: Reports: No New Focal Deficit Psy/Mental Status: Reports: Alert, Normal Affect, Normal Mood *Q Meaningful Use (DIS) - VTE *Q VTE Criteria *Q: - Stroke *Q Stroke Criteria *Q: - AMI *Q AMI Criteria *Q:
[2017-01-28 11:17] VITALS: BP 89/67
[2017-01-29] MEDS ORDERED: Furosemide 40 MG Tab PO SCH (09:00)
== END 2017-01-28 13:20 | disposition home or self-care (01) ==
LOC: DL.ED 23:27 → DL.MS 01-26 01:01 → UNDOADMOB 01-26 01:01 → DL.MS 01-26 01:48
PROVIDERS: ADMIT Internal Medicine; ATTEND Internal Medicine
DX: I50.22 Chronic systolic (congestive) heart failure (principal); R19.7 Diarrhea, unspecified; R11.10 Vomiting, unspecified; K29.20 Alcoholic gastritis without bleeding; R06.02 Shortness of breath; I10 Essential (primary) hypertension; K21.9 Gastro-esophageal reflux disease without esophagitis; F41.9 Anxiety disorder, unspecified; Z95.5 Presence of coronary angioplasty implant and graft; Z79.82 Long term (current) use of aspirin; Z79.899 Other long term (current) drug therapy; F17.210 Nicotine dependence, cigarettes, uncomplicated
CPT/HCPCS: 36415; 71020; 80048; 80053; 82150; 83690; 83735; 83880; 84100; 85025; 85027; 96374; 96375; 99285; A9270; G0480; J1644; J1940; J2270; J2405; 96372; G0378

== ENCOUNTER 2017-02-14 11:48 | Observation (INO) | payer MEDICAID, OTHER ==
[2017-02-14] MEDS ORDERED: MVI, Adult with Vitamin K 10 ML, Folic Acid 1 MG, Thiamine 100 MG in Lactated Ringers 1... IV ONE ×4 (12:15)
[2017-02-14] MEDS ORDERED: Ondansetron 4 MG/2 ML SDV IV ONE (12:26)
--- NOTE | 2017-02-14 12:29 | EDM.PDOC ---
ED HPI GENERAL MEDICAL PROBLEM - General Chief Complaint: Abdominal Pain Stated Complaint: IN BY AMBULANCE Time Seen by Provider: 02/14/17 12:22 Source of Information: Reports: Patient, RN, RN Notes Reviewed History Limitations: Reports: No Limitations - History of Present Illness INITIAL COMMENTS - FREE TEXT/NARRATIVE: Pt presents to the ER with c/o epigastric pain, N/V/D for the past 3 days. He states he has had some anxiety, sob, fever and chills. He admits to a cough with sputum production being white/brown. He states he last vomited prior to arrival. Onset: Gradual Onset Date: 02/11/17 Location: Reports: Abdomen Quality: Reports: Sharp Severity: Moderate Improves with: Reports: None Worsens with: Reports: None Associated Symptoms: Reports: Cough, cough w sputum, Fever/Chills, Loss of Appetite, Nausea/Vomiting, Shortness of Breath, Weakness Abdominal Pain Score (Numeric/FACES): 7 - Related Data Allergies Allergy/AdvReac Type Severity Reaction Status Date / Time No Known Allergies Allergy Verified 02/14/17 12:01 Home Meds: Home Meds Lisinopril 20 mg PO DAILY 07/17/14 [History] Carvedilol [Coreg] 6.25 mg PO BIDMEALS 10/18/15 [History] Spironolactone [Aldactone] 25 mg PO DAILY 10/18/15 [History] Omeprazole 20 mg PO ACBREAKFAST #30 cap.cr 12/10/16 [Rx] Sertraline [Zoloft] 50 mg PO DAILY 01/26/17 [History] Furosemide [Lasix] 40 mg PO DAILY #30 tablet 01/28/17 [Rx] Past Medical History - Past Health History Medical/Surgical History: Denies Medical/Surgical History HEENT History: Reports: None Cardiovascular History: Reports: Cardiomyopathy, Heart Failure, Heart Murmur, Hypertension, Pacemaker Respiratory History: Reports: SOB Gastrointestinal History: Reports: Gastritis, GERD Genitourinary History: Reports: Other (See Below) Other Genitourinary History: liver issues r/t ETOH Musculoskeletal History: Reports: Arthritis, Other (See Below) Other Musculoskeletal History: torn left and right upper arm tendon Neurological History: Reports: None Psychiatric History: Reports: Addiction, Anxiety, Panic Attack Endocrine/Metabolic History: Reports: None Hematologic History: Reports: None Immunologic History: Reports: None Oncologic (Cancer) History: Reports: None Dermatologic History: Reports: None - Infectious Disease History Infectious Disease History: Reports: None - Past Surgical History Head Surgeries/Procedures: Reports: None Cardiovascular Surgical History: Reports: Percutaneous Transluminal Angioplasty Social & Family History - Family History Family Medical History: Noncontributory Cardiac: Reports: Hypertension Other Cardiac Family History: Dad and paternal grandmother have hypertension. Respiratory: Reports: Asthma Other Respiratory Family Hisory: Mom and dad have asthma. Endocrine/Metabolic: Reports: Diabetes, Type I Other Endocrine/Metabolic Family History: Dad and paternal grandmother have type I diabetes. - Tobacco Use Smoking Status *Q: Current Every Day Smoker Years of Tobacco use: 10 Packs/Tins Daily: 0.5 Used Tobacco, but Quit: No Second Hand Smoke Exposure: No - Caffeine Use Caffeine Use: Reports: Coffee, Soda - Alcohol Use Days Per Week of Alcohol Use: 1 Number of Drinks Per Day: 10 Total Drinks Per Week: 10 - Recreational Drug Use Recreational Drug Use: Yes Drug Use in Last 12 Months: Yes Recreational Drug Type: Reports: Marijuana/Hashish Other Recreational Drug Type: meth over a month ago Recreational Drug Use Frequency: Weekly Recreational Drug Last Use: yesterday - Living Situation & Occupation Living situation: Reports: with Family ED ROS GENERAL - Review of Systems Review Of Systems: ROS reveals no pertinent complaints other than HPI. ED EXAM, GI/ABD - Physical Exam Exam: See Below Exam Limited By: No Limitations General Appearance: Alert, WD/WN, Mild Distress Eyes: Bilateral: EOMI Ears: Normal External Exam, Hearing Grossly Normal Nose: Normal Inspection Throat/Mouth: Normal Inspection, Normal Voice, No Airway Compromise Head: Atraumatic, Normocephalic Neck: Normal Inspection, Supple, Non-Tender, Full Range of Motion Respiratory/Chest: Chest Non-Tender, Rhonchi Cardiovascular: Normal Peripheral Pulses, Regular Rate, Rhythm, No Edema, Systolic Murmur, Gallop/S3. No: No Gallop, No Murmur GI/Abdominal Exam: Normal Bowel Sounds, Soft, No Distention, Tender (Male) Exam: Deferred Rectal (Males) Exam: Deferred Back Exam: Normal Inspection, Full Range of Motion Extremities: Normal Inspection, Normal Range of Motion, Non-Tender, No Pedal Edema, Normal Capillary Refill Neurological: Alert, Oriented, CN II-XII Intact, Normal Cognition, Normal Gait, No Motor/Sensory Deficits Psychiatric: Anxious Skin Exam: Warm, Dry, Intact, Normal Color, No Rash Lymphatic: No Adenopathy Course - Vital Signs Last Recorded V/S: Last Vital Signs Temp 97.5 F 02/14/17 13:05 Pulse 108 H 02/14/17 13:14 Resp 24 H 02/14/17 13:14 BP 123/108 H 02/14/17 13:14 Pulse Ox 94 L 02/14/17 13:14 - Orders/Labs/Meds Orders: Active Orders 24 hr Category Date Time Status Peripheral IV Care [RC] . DIRECTED Care 02/14/17 12:15 Active Chest 1V Frontal [CR] Stat Exams 02/14/17 12:26 Ordered CULTURE BLOOD [BC] Stat Lab 02/14/17 12:30 Received CULTURE BLOOD [BC] Stat Lab 02/14/17 12:39 Received CULTURE STOOL [RM] Stat Lab 02/14/17 13:01 Received [place], Stool [OCCULT BLOOD DIAGNOSTIC] [OP] Stat Lab 02/14/17 13:01 Received OVA & PARASITES Stat Lab 02/14/17 13:01 Received UA W/MICROSCOPIC [URIN] Stat Lab 02/14/17 13:01 Results Furosemide [Lasix] Med 02/14/17 13:24 Once 40 mg IVPUSH NOW ONE Sodium Chloride 0.9% [Saline Flush] Med 02/14/17 12:14 Active 10 ml FLUSH ASDIRECTED PRN Blood Culture x2 Reflex Set [OM.PC] Stat Oth 02/14/17 12:15 Ordered Peripheral IV Insertion Adult [OM.PC] Stat Oth 02/14/17 12:14 Ordered Medication Orders Furosemide (Lasix) 40 mg IVPUSH NOW ONE Stop: 02/14/17 13:25 Sodium Chloride (Saline Flush) 10 ml FLUSH ASDIRECTED PRN PRN Reason: Keep Vein Open Last Admin: 02/14/17 12:34 Dose: 10 ml Labs: Laboratory Tests 02/14/17 02/14/17 02/14/17 Range/Units 12:20 12:20 12:30 WBC 6.2 (5.0-10.0) 10^3/uL RBC 4.56 L (4.6-6.2) 10^6/uL Hgb 13.1 L (14.0-18.0) g/dL Hct 40.0 (40.0-54.0) % MCV 87.7 (80-100) fL MCH 28.7 (27.0-34.0) pg MCHC 32.8 L (33.0-35.0) g/dL Plt Count 239 (150-450) 10^3/uL Neut % (Auto) 66.6 (42.2-75.2) % Lymph % (Auto) 22.8 (20.5-50.1) % [place] % (Auto) 8.6 H (2-8) % Eos % (Auto) 0.5 L (1.0-3.0) % Baso % (Auto) 1.5 H (0.0-1.0) % Sodium 137 (135-145) mmol/L Potassium 3.7 (3.6-5.0) mmol/L Chloride 102 (101-111) mmol/L Carbon Dioxide 23.0 (21.0-31.0) mmol/L Anion Gap 15.7 BUN 11 (7-18) mg/dL Creatinine 0.7 (0.6-1.3) mg/dL Est Cr Clr Drug Dosing 126.25 mL/min Estimated GFR (MDRD) > 60 BUN/Creatinine Ratio 15.71 Glucose 86 (74-105) mg/dL Lactic Acid 4.1 H (0.5-2.2) mmol/L Calcium 9.0 (8.4-10.2) mg/dl Magnesium 1.6 L (1.8-2.5) mg/dL Total Bilirubin 3.3 H (0.2-1.0) mg/dL AST 126 H (10-42) IU/L ALT 90 H (10-60) IU/L Alkaline Phosphatase 82 (42-121) IU/L B-Natriuretic Peptide 1980 H (0-100) pg/ml Total Protein 7.2 (6.7-8.2) g/dl Albumin 3.4 (3.2-5.5) g/dl Globulin 3.8 Albumin/Globulin Ratio 0.89 Urine Color (YELLOW) Urine Appearance (CLEAR) Urine pH (5.0-9.0) Ur Specific [place] (1.005-1.030) Urine Protein (NEGATIVE) Urine Glucose (UA) (NEGATIVE) Urine Ketones (NEGATIVE) Urine Occult Blood (NEGATIVE) Urine Nitrite (NEGATIVE) Urine Bilirubin (NEGATIVE) Urine Urobilinogen (0.2-1.0) mg/dL Ur Leukocyte Esterase (NEGATIVE) Urine Opiates Screen (NEGATIVE) Ur Oxycodone Screen (NEGATIVE) Urine Methadone Screen (NEGATIVE) Ur Barbiturates Screen (NEGATIVE) U Tricyclic Antidepress (NEGATIVE) Ur Phencyclidine Scrn (NEGATIVE) Ur Amphetamine Screen (NEGATIVE) U Methamphetamines Scrn (NEGATIVE) Urine MDMA Screen (NEGATIVE) U Benzodiazepines Scrn (NEGATIVE) Urine Cocaine Screen (NEGATIVE) U Marijuana (THC) Screen (NEGATIVE) Ethyl Alcohol 44 mg/dL 02/14/17 02/14/17 Range/Units 13:01 13:01 WBC (5.0-10.0) 10^3/uL RBC (4.6-6.2) 10^6/uL Hgb (14.0-18.0) g/dL Hct (40.0-54.0) % MCV (80-100) fL MCH (27.0-34.0) pg MCHC (33.0-35.0) g/dL Plt Count (150-450) 10^3/uL Neut % (Auto) (42.2-75.2) % Lymph % (Auto) (20.5-50.1) % [place] % (Auto) (2-8) % Eos % (Auto) (1.0-3.0) % Baso % (Auto) (0.0-1.0) % Sodium (135-145) mmol/L Potassium (3.6-5.0) mmol/L Chloride (101-111) mmol/L Carbon Dioxide (21.0-31.0) mmol/L Anion Gap BUN (7-18) mg/dL Creatinine (0.6-1.3) mg/dL Est Cr Clr Drug Dosing mL/min Estimated GFR (MDRD) BUN/Creatinine Ratio Glucose (74-105) mg/dL Lactic Acid (0.5-2.2) mmol/L Calcium (8.4-10.2) mg/dl Magnesium (1.8-2.5) mg/dL Total Bilirubin (0.2-1.0) mg/dL AST (10-42) IU/L ALT (10-60) IU/L Alkaline Phosphatase (42-121) IU/L B-Natriuretic Peptide (0-100) pg/ml Total Protein (6.7-8.2) g/dl Albumin (3.2-5.5) g/dl Globulin Albumin/Globulin Ratio Urine Color [place] (YELLOW) Urine Appearance Clear (CLEAR) Urine pH 6.0 (5.0-9.0) Ur Specific [place] 1.020 (1.005-1.030) Urine Protein 100 H (NEGATIVE) Urine Glucose (UA) Negative (NEGATIVE) Urine Ketones Trace H (NEGATIVE) Urine Occult Blood Small H (NEGATIVE) Urine Nitrite Negative (NEGATIVE) Urine Bilirubin Small H (NEGATIVE) Urine Urobilinogen 4.0 H (0.2-1.0) mg/dL Ur Leukocyte Esterase Negative (NEGATIVE) Urine Opiates Screen Negative (NEGATIVE) Ur Oxycodone Screen Positive H (NEGATIVE) Urine Methadone Screen Negative (NEGATIVE) Ur Barbiturates Screen Negative (NEGATIVE) U Tricyclic Antidepress Negative (NEGATIVE) Ur Phencyclidine Scrn Negative (NEGATIVE) Ur Amphetamine Screen Negative (NEGATIVE) U Methamphetamines Scrn Positive H (NEGATIVE) Urine MDMA Screen Negative (NEGATIVE) U Benzodiazepines Scrn Negative (NEGATIVE) Urine Cocaine Screen Negative (NEGATIVE) U Marijuana (THC) Screen Positive H (NEGATIVE) Ethyl Alcohol mg/dL Meds: Medications Generic Name Dose Route Start Last Admin Trade Name Freq PRN Reason Stop Dose Admin Furosemide 40 mg 02/14/17 13:24 Lasix IVPUSH 02/14/17 13:25 NOW ONE Sodium Chloride 10 ml 02/14/17 12:14 02/14/17 12:34 Saline Flush FLUSH 10 ml ASDIRECTED PRN Administration Keep Vein Open Discontinued Medications Generic Name Dose Route Start Last Admin Trade Name Freq PRN Reason Stop Dose Admin Multivitamins/Minerals 10 ml/ 1,011.2 mls @ 999 mls/hr 02/14/17 12:15 12:31 Folic Acid 1 mg/ Thiamine HCl IV 02/14/17 13:15 999 mls/hr 100 mg/ Lactated Ringer's ONETIME ONE Administration Lorazepam 1 mg 02/14/17 12:42 02/14/17 12:47 Ativan IVPUSH 02/14/17 12:43 1 mg ONETIME ONE Administration Ondansetron HCl 4 mg 02/14/17 12:26 02/14/17 12:32 Zofran IV 02/14/17 12:27 4 mg ONETIME ONE Administration - Radiology Interpretation Free Text/Narrative:: Chest xray: Portable: See rad report Departure - Departure Time of Disposition: 13:26 Disposition: Admitted As Inpatient 68 Condition: Fair Clinical Impression: CHF (congestive heart failure) Qualifiers: Congestive heart failure type: unspecified congestive heart failure type Congestive heart failure chronicity: acute Qualified Code(s): I50.9 - Heart failure, unspecified Abdominal pain Qualifiers: Abdominal location: right upper quadrant Qualified Code(s): R10.11 - Right upper quadrant pain Vomiting Qualifiers: Vomiting type: unspecified Vomiting Intractability: unspecified Nausea presence : unspecified Qualified Code(s): R11.10 - Vomiting, unspecified Diarrhea Qualifiers: Diarrhea type: unspecified type Qualified Code(s): R19.7 - Diarrhea, unspecified - Discharge Information Forms: ED Department Discharge - My Orders Last 24 Hours: My Active Orders 02/14/17 12:14 Sodium Chloride 0.9% [Saline Flush] 10 ml FLUSH ASDIRECTED PRN Peripheral IV Insertion Adult [OM.PC] Stat 02/14/17 12:15 Peripheral IV Care [RC] . DIRECTED Blood Culture x2 Reflex Set [OM.PC] Stat 02/14/17 12:26 Chest 1V Frontal [CR] Stat 02/14/17 12:30 CULTURE BLOOD [BC] Stat 02/14/17 12:39 CULTURE BLOOD [BC] Stat 02/14/17 13:01 CULTURE STOOL [RM] Stat [place], Stool [OCCULT BLOOD DIAGNOSTIC] [OP] Stat OVA & PARASITES Stat UA W/MICROSCOPIC [URIN] Stat 02/14/17 13:24 Furosemide [Lasix] 40 mg IVPUSH NOW ONE - Assessment/Plan Last 24 Hours: My Active Orders 02/14/17 12:14 Sodium Chloride 0.9% [Saline Flush] 10 ml FLUSH ASDIRECTED PRN Peripheral IV Insertion Adult [OM.PC] Stat 02/14/17 12:15 Peripheral IV Care [RC] . DIRECTED Blood Culture x2 Reflex Set [OM.PC] Stat 02/14/17 12:26 Chest 1V Frontal [CR] Stat 02/14/17 12:30 CULTURE BLOOD [BC] Stat 02/14/17 12:39 CULTURE BLOOD [BC] Stat 02/14/17 13:01 CULTURE STOOL [RM] Stat [place], Stool [OCCULT BLOOD DIAGNOSTIC] [OP] Stat OVA & PARASITES Stat UA W/MICROSCOPIC [URIN] Stat 02/14/17 13:24 Furosemide [Lasix] 40 mg IVPUSH NOW ONE
[2017-02-14] MEDS: Sodium Chloride 0.9% 10 ML Syringe FLUSH PRN ×3 (12:34→17:19)
[2017-02-14] MEDS ORDERED: LORazepam 2 MG/ML Syringe IVPUSH ONE (12:42)
[2017-02-14 12:48] LABS: CHLORIDE,CL 102 mmol/L (101-111); SODIUM,NA 137 mmol/L (135-145)
[2017-02-14] MEDS ORDERED: Furosemide 40 MG/4 ML VIAL IVPUSH ONE (13:24)
[2017-02-14] MEDS ORDERED: Ondansetron 4 MG Tab.DIS PO PRN (15:20)
[2017-02-14] MEDS: methylPREDNISolone Sodium Succinate 40 MG/1 ML SDV IVPUSH SCH (16:11)
[2017-02-14] MEDS: Acetaminophen/oxyCODONE 325-5 MG Tab PO PRN ×2 (16:25→22:29)
[2017-02-14] MEDS: Carvedilol 6.25 MG Tab PO SCH (17:18)
[2017-02-14] MEDS: Budesonide 0.5 MG/2 ML Neb Susp NEB SCH (18:38)
[2017-02-14] MEDS: Albuterol/Ipratropium 3.0-0.5 MG/3 ML Neb Soln NEB SCH (18:38)
--- NOTE | 2017-02-14 22:14 | HP ---
CHIEF COMPLAINT: Increasing shortness of breath, nausea, vomiting, diarrhea. HISTORY OF PRESENTING ILLNESS: Mr. Sachi Castillo is a 52-year-old male with medical history significant for hypertension, hyperlipidemia, nonischemic cardiomyopathy with decreased ejection fraction to 25%, status post pacemaker and AICD placed, chronic alcohol use, chronic methamphetamine use, chronic marijuana use, chronic tobacco use, history of noncompliance with medical treatment and plan, history of hypertension, initially presented to the ER with complaints of increasing shortness of breath requiring admission to the hospital. At this time, the patient claims that he has been dealing with nausea, vomiting, and diarrhea in the last 2 days. He had 3 to 4 episodes of nausea, vomiting, and diarrhea each day. No blood seen in the vomitus or in the diarrhea, which are loose in nature. No sick contacts. No recent travel. He also claims that he has not taken his pills for the last 2 days and upon further questioning, the patient tells that he has been inhaling the vapors from methamphetamine, he presumed methamphetamine a bulb, vaporizes it, and inhales with vapors. Also had been smoking weed in the last 2 days and consuming alcohol and smoking tobacco. In the last 2 days, he has been increasingly short of breath. He grades the shortness of breath as 5 to 6/10 in intensity, got aggravated on ambulation, relieved with rest, not associated with any fevers or chills, but having cough with sputum which is brownish in color. Denied any ongoing chest pains at this time, but had intermittent episodes of chest pressureness when he had this shortness of breath. The patient denied any history of chest pains on exertion, but has mild dyspnea on exertion. No history of orthopnea or paroxysmal nocturnal dyspnea. The patient denied any history of hematemesis, hematochezia, or melanotic stools. Normal bowel and bladder habits, otherwise. REVIEW OF SYSTEMS: A complete review of system including skin, ear, nose, and throat, cardiovascular system, respiratory system, gastrointestinal system, hematology, oncology, neurology, allergy, immunology, constitutional were all evaluated. PAST MEDICAL HISTORY: Significant for: 1. Hypertension. 2. Hyperlipidemia. 3. Nonischemic cardiomyopathy, ejection fraction of 25%, status post pacemaker and AICD placed. 4. Chronic history of alcohol use, tobacco use, marijuana use, and methamphetamine use. 5. Noncompliance with medical treatment and plan. 6. History of alcohol withdrawals in the past. 7. Cirrhosis. PAST SURGICAL HISTORY: Significant for lipoma resection and colon surgery. FAMILY HISTORY: Significant for diabetes and pacemaker in his father, heart disease and diabetes in his paternal grandmother. SOCIAL HISTORY: The patient is currently smoking, he smokes around 4 to 5 cigarettes a day. Consumes alcohol occasionally. Continues to use marijuana and methamphetamine. His last methamphetamine use was 2 days back and marijuana use was 2 days back as per the patient. ALLERGIES: No known drug allergies. PHYSICAL EXAMINATION: Vital Signs: Temperature of 97.4, pulse of 105, respiratory rate of 20, blood pressure 127/98, saturating at 98% on room air. General Appearance: The patient is well-oriented to time, place, and person. Follows commands spontaneously. Cardiovascular System: S1, S2 heard with normal intensity. Distant heart sounds. Respiratory System: Bilateral wheezing noted, mild crepitations at the bases only. Abdomen: Soft. Bowel sounds positive. Nontender. No rigidity. No guarding. No rebound tenderness. Extremities: No edema in bilateral lower extremities. No JVD appreciated at this time. HOME MEDICATIONS: 1. Coreg 12.5 mg twice a day. 2. Mobic 7.5 mg daily. 3. Serotonin 50 mg daily. 4. Atarax as needed. 5. Omeprazole 20 mg daily. 6. Albuterol two puffs inhalation every 6 hours as needed. 7. Magnesium oxide 400 mg daily. 8. Lasix 40 mg two times daily. 9. Potassium chloride 20 mEq daily. 10.Spironolactone 25 mg daily. 11.Lisinopril 10 mg daily. LABORATORY AND DIAGNOSTIC DATA: Labs ordered today. WBC 6.2, hemoglobin 13.1, hematocrit 40, platelet count 239. Sodium 137, potassium 3.7, chloride 102, bicarb 23, BUN 11, creatinine 0.7, glucose 86, lactic acid 4.1, magnesium 1.6. Total bilirubin 3.3, AST 126, ALT 90. BNP 1980. Urinalysis negative for nitrites, negative for leukocytes. Urine toxicology screen positive for oxycodone, positive for methamphetamine and marijuana. Ethyl alcohol 44. ASSESSMENT: 1. Reactive airway disease with possible acute bronchitis, resulting in wheezing. 2. Chronic congestive heart failure with systolic dysfunction with ejection fraction of 25% from recent echocardiogram. 3. Nonischemic cardiomyopathy, possibly alcohol-related, status post pacemaker and AICD placed. 4. Hypertension. 5. Noncompliance with medications. 6. Illicit drug abuse with methamphetamine and marijuana. 7. Chronic alcohol use and tobacco use. 8. Chronic congestive heart failure secondary to systolic dysfunction. PLAN: 1. Reactive airway disease. The patient is noted to have wheeze bilaterally. This could be mainly resulting from acute bronchitis and from inhaling the vapors from methamphetamine use. The patient will be kept on nebulizer treatment with DuoNeb and Pulmicort nebulizer. One might consider adding a steroid also, IV methylprednisone. We will closely follow the patient. The patient will be encouraged to use incentive spirometer. 2. Chronic congestive heart failure. The patient is noted to have elevated B- natriuretic peptide up to 1980. The patient's BNP was in the range of 3000s in the past, so his BNP is chronically elevated, but on physical examination, he does not have edema to the lower extremities. Not much elevated JVD, so less likely we are dealing with any congestive heart failure exacerbation. We will need to maintain euvolemic status, try to avoid any aggressive diuresis given his recent volume depletion status including nausea, vomiting, and diarrhea. 3. Nausea, vomiting, and diarrhea. Unsure if the patient had any gastroenteritis or withdrawals from marijuana use. In any case, the patient is started on IV fluids at 75. We will give him a liter of fluid and then reassess his fluid status and try to maintain euvolemic status. He did not have any diarrhea after getting admitted to the hospital or vomiting after getting admitted to the hospital. 4. Illicit drug abuse. The patient was explained about ill effects of using methamphetamine and marijuana, his health especially the cardiac health, and strongly encouraged him to quit using any illicit drugs, which he understands and verbalized the same. He was also educated about alcohol cessation and tobacco cessation. 5. Hypertension. The patient's blood pressure seems to be in acceptable range. He usually takes beta-luis at home, continue the same. 6. Code status. I had a detailed discussion regarding the code status with the patient. The patient wants to be full code. Discussed with ER physician regarding the plan of care. Discussed with the patient regarding the plan of care. Reviewed the labs and medications. Reviewed the old charts. [facility] /[id number]
[2017-02-14] MEDS: Zolpidem 5 MG Tab PO PRN (22:29)
[2017-02-15] MEDS: Albuterol/Ipratropium 3.0-0.5 MG/3 ML Neb Soln NEB SCH ×4 (00:31→18:42)
[2017-02-15] MEDS: methylPREDNISolone Sodium Succinate 40 MG/1 ML SDV IVPUSH SCH ×3 (00:32→16:43)
[2017-02-15] MEDS: Acetaminophen/oxyCODONE 325-5 MG Tab PO PRN ×4 (04:43→22:29)
[2017-02-15] MEDS: Omeprazole 20 MG Cap.CR PO SCH (05:43)
[2017-02-15] MEDS: Budesonide 0.5 MG/2 ML Neb Susp NEB SCH ×2 (06:36→18:42)
[2017-02-15 07:16] LABS: CHLORIDE,CL 101 mmol/L (101-111); SODIUM,NA 134 mmol/L (135-145)
[2017-02-15] MEDS: Lisinopril 20 MG Tab PO SCH (09:42)
[2017-02-15] MEDS: Spironolactone 25 MG Tab PO SCH (09:42)
[2017-02-15] MEDS: Furosemide 40 MG Tab PO SCH (09:42)
[2017-02-15] MEDS: Sertraline 50 MG Tab PO SCH (09:43)
[2017-02-15] MEDS: Carvedilol 6.25 MG Tab PO SCH ×2 (09:43→17:43)
[2017-02-15] MEDS: Enoxaparin 40 MG/0.4 ML Syringe SUBCUT SCH (09:44)
[2017-02-15] MEDS: Zolpidem 5 MG Tab PO PRN (22:29)
[2017-02-16] MEDS: Albuterol/Ipratropium 3.0-0.5 MG/3 ML Neb Soln NEB SCH ×2 (00:27→07:58)
[2017-02-16] MEDS: methylPREDNISolone Sodium Succinate 40 MG/1 ML SDV IVPUSH SCH ×2 (00:27→08:51)
[2017-02-16] MEDS: Omeprazole 20 MG Cap.CR PO SCH ×2 (04:49→05:14)
[2017-02-16] MEDS: Acetaminophen/oxyCODONE 325-5 MG Tab PO PRN ×2 (04:49→10:46)
[2017-02-16] MEDS: Budesonide 0.5 MG/2 ML Neb Susp NEB SCH (07:58)
[2017-02-16] MEDS: Sodium Chloride 0.9% 10 ML Syringe FLUSH PRN (08:51)
[2017-02-16] MEDS: Enoxaparin 40 MG/0.4 ML Syringe SUBCUT SCH (08:52)
[2017-02-16] MEDS: Furosemide 40 MG Tab PO SCH (08:53)
[2017-02-16] MEDS: Sertraline 50 MG Tab PO SCH (08:54)
[2017-02-16] MEDS: Lisinopril 20 MG Tab PO SCH (08:54)
[2017-02-16] MEDS: Carvedilol 6.25 MG Tab PO SCH (08:55)
--- NOTE | 2017-02-16 08:56 | PN ---
DATE: 02/15/2017 SUBJECTIVE: Mr. Sachi Castillo is a 52-year-old male with medical history significant for hypertension; hyperlipidemia; nonischemic cardiomyopathy with ejection fraction of 25%, status post pacemaker and AICD placed; chronic alcohol use; chronic illicit drug use with methamphetamine and marijuana; chronic tobacco use, admitted to the hospital with increasing shortness of breath and was noted to have acute bronchitis, reactive airway disease exacerbation, and chronic congestive heart failure. For the last 24 hours, the patient was continued on nebulizer treatment. He continues to have shortness of breath, grades it as 3 to 4/10 in intensity, aggravated on ambulation, relieved with rest, not associated with any chest pain. Denies any abdominal pain. No nausea. No vomiting. No diarrhea. REVIEW OF SYSTEMS: Cardiovascular, respiratory, gastrointestinal, neurology, constitutional were all evaluated. PHYSICAL EXAMINATION: Vital Signs: Temperature of 97.6, pulse of 90, blood pressure 112/79, respiratory rate of 22, and saturating at 96% on room air. General Appearance: The patient is well oriented to time, place, and person. Follows commands spontaneously. Cardiovascular System: S1 and S2 heard with normal intensity. No gallops. Respiratory System: Bilateral wheeze noted. Abdomen: Soft. Bowel sounds positive. Nontender. No rigidity. Extremities: No edema in bilateral lower extremities. Neurology: No gross focal neurological deficits. LABORATORY DATA: Labs reviewed. Sodium 134, potassium 4.3, chloride 101, bicarb 20. BUN 23, creatinine 0.9, glucose 142. Troponin 0.03. Stool culture negative. MEDICATIONS: Reviewed. Continue the same. Continue with: 1. Coreg. 2. Lovenox. 3. Lasix 40 daily. 4. Lisinopril 20 daily. 5. Solu-Medrol 40 IV q.8 hourly. 6. Omeprazole 20 mg daily. 7. Pulmicort nebulizer. 8. DuoNeb nebulizer. ASSESSMENT: 1. Shortness of breath, secondary to reactive airway disease with acute bronchitis. 2. Chronic congestive heart failure with systolic dysfunction. Ejection fraction of 25%. 3. Nonischemic cardiomyopathy, status post AICD pacemaker placed. 4. Hypertension. 5. Noncompliance with medication. 6. Illicit drug abuse with methamphetamine and marijuana. 7. Chronic alcohol use and tobacco use. PLAN: 1. Reactive airway disease. The patient continues to have wheeze. Start him on nebulizers and also methylprednisone, continue the same. He is also on Lasix, continue the same. The patient is encouraged to use incentive spirometer and flutter valve. The patient has been inhaling the vapors of methamphetamine prior to coming to the hospital, which could have caused this reactive airway disease. 2. Chronic congestive heart failure, remains stable. His BNP is stable at this time. He is noted to be on Lasix. The patient did receive extra dose of Lasix IV in the ER and is noted to have elevated BUN, so we will continue with the current dose of Lasix. Monitor his input, output, and daily weights. 3. Nausea, vomiting, and diarrhea. This seems to be from the gastroenteritis which is resolved. His stool culture has been negative. 4. Illicit drug abuse. The patient was educated about ill effects of using drugs for his health and strongly encouraged him to quit, which he understands, sound by the same. 5. Hypertension. The patient's blood pressure seems to be well controlled. Continue with TREVIN inhibitor and beta-luis. 6. Continue with nebulizers and steroids for his reactive airway disease. [facility] /[id number]
[2017-02-16] MEDS: Spironolactone 25 MG Tab PO SCH (10:46)
[2017-02-16 11:11] LABS: CHLORIDE,CL 98 mmol/L (101-111); SODIUM,NA 132 mmol/L (135-145)
[2017-02-16 12:51] VITALS: BP 112/84
--- NOTE | 2017-02-17 01:56 | DISCH ---
ADMITTING DIAGNOSES: 1. Increasing shortness of breath secondary to reactive airway disease resulting from inhaling the vapors of methamphetamine. 2. Chronic congestive heart failure secondary to systolic dysfunction with ejection fraction of 25%. 3. Nonischemic cardiomyopathy, resulting in AICD placement. DISCHARGE DIAGNOSES: 1. Reactive airway disease, resulting from inhaling vapors of methamphetamine, improved with nebulizers and steroids. 2. Chronic congestive heart failure with systolic dysfunction with ejection fraction of 25%, remains stable. 3. Nonischemic cardiomyopathy, resulting in AICD placement. 4. Hyponatremia, mild in nature. HISTORY OF PRESENTING ILLNESS: Mr. Sachi Guillen is a 52-year-old male with medical history significant for hypertension, hyperlipidemia, nonischemic cardiomyopathy status post AICD placed, chronic congestive heart failure with systolic dysfunction with EF of 25%, and chronic history of illicit drug abuse including methamphetamine and marijuana, and chronic alcohol use and tobacco use, was admitted to the hospital with increasing shortness of breath. On admission, the patient was noted to have wheezing bilaterally, caused to have reactive airway disease, possible bronchitis, and the patient claims that he has been inhaling the vapors from methamphetamine which could have caused this reactive airway disease. He was treated with a nebulizer treatment, DuoNeb, Pulmicort nebulizer, and steroid therapy, after which his wheezing has much improved. His congestive heart failure remains stable on this admission. He did not have any edema to the lower extremities. Chest x-ray done at the time of admission did not show any evidence of acute pulmonary congestion. The patient was noted to have lower blood pressure, but he tolerated the lower blood pressure very well. He is able to ambulate well without any difficulty. He denied any dizziness. The patient also claims that he has not been taking his pills for the last 2 days while he was using methamphetamine. The patient was educated about being compliant with medications. He remained hemodynamically stable on this admission. He was discharged home in stable condition. He was advised to follow with his primary care physician in next 1 week of time. DISCHARGE MEDICATIONS: 1. Coreg 6.25 mg twice a day. 2. Lasix 40 mg daily. 3. Lisinopril 20 mg daily. 4. Omeprazole 20 mg at breakfast. 5. Zoloft 50 mg daily. 6. Spironolactone 25 mg daily. CONDITION ON ADMISSION: Poor. CONDITION ON DISCHARGE: Stable. ACTIVITY: As tolerated. DIET: Cardiac healthy diet. FOLLOWUP: Follow with primary care physician in next 1 week of time. DISCHARGE PHYSICAL EXAMINATION: Vital Signs: Temperature of 97.5, pulse of 80, blood pressure 112/84, respiratory rate of 20, saturating at 100% on room air. General Appearance: The patient is well oriented to time, place, and person. Follows commands spontaneously. Cardiovascular System: S1, S2 heard with normal intensity. No gallops. Respiratory System: Clear to auscultation bilaterally. No wheeze. No crepitations. Abdomen: Soft. Bowel sounds positive. Nontender. No rigidity. Extremities: No edema in bilateral lower extremities. Neurology: No gross focal neurological deficit. Spent over 35 minutes of time in evaluating and treating this patient and getting the discharge planning. [facility] /[id number]
[2017-02-17] MEDS ORDERED: Lisinopril 10 MG Tab PO SCH (09:00)
== END 2017-02-16 13:45 | disposition home or self-care (01) ==
LOC: DL.ED 11:48 → UNDOADMIN 14:03 → DL.MS 14:03 → INTOOBSV 15:20
PROVIDERS: ADMIT Internal Medicine; ATTEND Internal Medicine
DX: J45.909 Unspecified asthma, uncomplicated (principal); I50.22 Chronic systolic (congestive) heart failure; I42.9 Cardiomyopathy, unspecified; E87.1 Hypo-osmolality and hyponatremia; I10 Essential (primary) hypertension; E78.5 Hyperlipidemia, unspecified; F17.210 Nicotine dependence, cigarettes, uncomplicated; Z79.899 Other long term (current) drug therapy; Z72.89 Other problems related to lifestyle; Z72.0 Tobacco use
CPT/HCPCS: 36415; 71010; 80048; 80053; 80305; 81001; 82272; 82550; 82553; 83605; 83735; 83880; 84100; 84484; 85025; 87040; 87045; 87046; 87328; 87329; 87899; 94010; 94640; 96365; 96366; 96372; 96375; 96376; 99285; A9270; G0378; G0480; J1650; J1940; J2060; J2405; J2920; J3411; J3475; J7050; J7120; 96368; J3490

== ENCOUNTER 2017-02-24 11:35 | Emergency (ER) | payer MEDICAID, OTHER ==
[2017-02-24] MEDS ORDERED: Ondansetron 4 MG/2 ML SDV IV ONE (11:36)
[2017-02-24] MEDS ORDERED: Heparin Sodium/D5W 500 ML IV ONE (11:36)
[2017-02-24] MEDS ORDERED: Heparin Sodium 5,000 Units/ML Vial IV ONE (11:36)
[2017-02-24] MEDS ORDERED: Albuterol/Ipratropium 3.0-0.5 MG/3 ML Neb Soln INH ONE (11:36)
[2017-02-24] MEDS ORDERED: Furosemide 40 MG/4 ML VIAL IV ONE (11:36)
[2017-02-24 13:19] LABS: CHLORIDE,CL 106 mmol/L (101-111); SODIUM,NA 139 mmol/L (135-145)
[2017-02-24] MEDS ORDERED: Iopamidol 755 Mg/ML 100 ML Bottle IVPUSH ONE (13:23)
[2017-02-24] MEDS ORDERED: Heparin Sodium/D5W 500 ML ONE (14:49)
[2017-02-24] MEDS ORDERED: Heparin Sodium 5,000 Units/ML Vial ONE (14:49)
--- NOTE | 2017-02-24 18:20 | CT ---
Clinical history: 52-year-old 190 pound hypertensive male smoker with shortness of breath and serum D dimer 1530. Scan technique: Volume acquisition of data from the chest (bony thorax, lungs and mediastinum) obtain ed during the intravenous administration 70 cc nonionic Isovue 370 contrast via injector while the pa tient was lying supine on the Siemens multi slice scanner [facility]. All data archived in the PACS system for storage, reformatting and study. Interpretation: Abnormal. 1. Cardiomegaly. No cephalization of vascular flow, signs of alveolar edema or dependent effusion. Ca rdiac pacemaker. 2. Normal caliber thoracic aorta. No aneurysm or dissection. 3. *Intraluminal filling or flow defects characteristic of thrombus principally involving the pulmona ry artery segments second tier peripherally right lung i.e. pulmonary thrombosis or embolism. 4. Some patchy atelectasis anterior segment right lower lobe and apparent bronchiectasis posterior se gment LLL. 5. No peripheral pleural-based wedge shaped infarcts and no abnormal lobar oligemia or associated ple ural effusions. 6. No lung mass lesion or significant hilar/mediastinal lymphadenopathy. 7. Distended gallbladder, liver, stomach, spleen and atrophic pancreas unremarkable. No free subdiaph ragmatic air. No pneumothorax.
--- NOTE | 2017-02-24 18:21 | CR ---
Clinical history: 52-year-old hypertensive male smoker with serum D dimer 1530 complaining of shortne ss of breath. Interpretation: PA lateral chest abnormal. Pronounced cardiac enlargement as noted on 14 February 2017 exam this patient with cardiac pacemaker ( leads intact and unchanged). Relative increase venous congestion but no new signs of alveolar edema o r dependent effusion. No lung mass, hilar lymphadenopathy or focal lobar pneumonia.
--- NOTE | 2017-02-26 16:24 | EKG ---
02/24/2017 - MANNIE MEREDITH - FINDINGS: I reviewed the EKG and agree with the machine's reading. [facility] /[id number]
== END 2017-02-24 15:38 ==
LOC: DL.ED 11:35
DX: I26.99 Other pulmonary embolism without acute cor pulmonale (principal); I11.0 Hypertensive heart disease with heart failure; I50.9 Heart failure, unspecified; Z95.0 Presence of cardiac pacemaker
CPT/HCPCS: 36415; 71020; 71260; 80053; 80305; 81001; 83880; 84484; 85025; 85379; 96365; 96375; 99285; G0480; Q9967; J1644; J1940; J2405

== ENCOUNTER 2017-03-20 04:30 | Emergency (ER) | payer MEDICAID, OTHER ==
[2017-03-20] MEDS ORDERED: Sodium Chloride 0.9% 10 ML Syringe FLUSH PRN (04:44)
--- NOTE | 2017-03-20 04:48 | EDM.PDOC ---
ED HPI GENERAL MEDICAL PROBLEM - General Chief Complaint: Chest Pain Stated Complaint: IN BY AMBULANCE Time Seen by Provider: 03/20/17 04:40 Source of Information: Reports: Patient, EMS, EMS Notes Reviewed, RN, RN Notes Reviewed History Limitations: Reports: No Limitations - History of Present Illness INITIAL COMMENTS - FREE TEXT/NARRATIVE: Pt presents to ER per [facility] with c/o chest pain since 0200 this morning. He states normally when he has chest pain he takes a water pill and goes to the bathroom and then feels somewhat better. Patient admits to alcohol and meth use 2 days ago. Patient states he feels he has been "getting a cold" the past 2 days. States he has had a productive cough which he produces white sputum, chills, body aches, and generalized weakness. Onset: Today, Sudden Onset Date: 03/20/17 Onset Time: 02:00 Location: Reports: Chest Quality: Reports: Pressure Severity: Moderate Improves with: Reports: None Worsens with: Reports: None Associated Symptoms: Reports: Chest Pain, Cough, cough w sputum, Fever/Chills, Weakness Chest Pain Score (Numeric/FACES): 7 - Related Data Allergies Allergy/AdvReac Type Severity Reaction Status Date / Time No Known Allergies Allergy Verified 03/20/17 04:53 Home Meds: Home Meds Lisinopril 20 mg PO DAILY 07/17/14 [History] Carvedilol [Coreg] 6.25 mg PO BIDMEALS 10/18/15 [History] Spironolactone [Aldactone] 25 mg PO DAILY 10/18/15 [History] Omeprazole 20 mg PO ACBREAKFAST #30 cap.cr 12/10/16 [Rx] Sertraline [Zoloft] 50 mg PO DAILY 01/26/17 [History] Furosemide [Lasix] 40 mg PO DAILY #30 tablet 01/28/17 [Rx] Past Medical History - Past Health History Medical/Surgical History: Denies Medical/Surgical History HEENT History: Reports: None Cardiovascular History: Reports: Cardiomyopathy, Heart Failure, Heart Murmur, Hypertension, Pacemaker Respiratory History: Reports: SOB Gastrointestinal History: Reports: Gastritis, GERD Genitourinary History: Reports: Other (See Below) Other Genitourinary History: liver issues r/t ETOH Musculoskeletal History: Reports: Arthritis, Other (See Below) Other Musculoskeletal History: torn left and right upper arm tendon. Client stated he is having surgery this month. Neurological History: Reports: None Psychiatric History: Reports: Addiction, Anxiety, Panic Attack Endocrine/Metabolic History: Reports: None Hematologic History: Reports: None Immunologic History: Reports: None Oncologic (Cancer) History: Reports: None Dermatologic History: Reports: None - Infectious Disease History Infectious Disease History: Reports: None - Past Surgical History Head Surgeries/Procedures: Reports: None Cardiovascular Surgical History: Reports: Percutaneous Transluminal Angioplasty Social & Family History - Family History Family Medical History: Noncontributory Cardiac: Reports: Hypertension Other Cardiac Family History: Dad and paternal grandmother have hypertension. Respiratory: Reports: Asthma Other Respiratory Family Hisory: Mom and dad have asthma. Endocrine/Metabolic: Reports: Diabetes, Type I Other Endocrine/Metabolic Family History: Dad and paternal grandmother have type I diabetes. - Tobacco Use Smoking Status *Q: Current Every Day Smoker Years of Tobacco use: 10 Packs/Tins Daily: 1 Used Tobacco, but Quit: No Second Hand Smoke Exposure: Yes - Caffeine Use Caffeine Use: Reports: Coffee, Soda - Alcohol Use Days Per Week of Alcohol Use: 1 Number of Drinks Per Day: 10 Total Drinks Per Week: 10 - Recreational Drug Use Recreational Drug Use: Yes Drug Use in Last 12 Months: Yes Recreational Drug Type: Reports: Marijuana/Hashish, Methamphetamine Other Recreational Drug Type: meth over a month ago Recreational Drug Use Frequency: Weekly Recreational Drug Last Use: yesterday - Living Situation & Occupation Living situation: Reports: with Family ED ROS GENERAL - Review of Systems Review Of Systems: ROS reveals no pertinent complaints other than HPI. ED EXAM, GENERAL - Physical Exam Exam: See Below Exam Limited By: No Limitations General Appearance: Alert, WD/WN, Moderate Distress Eye Exam: Bilateral Eye: EOMI, Normal Inspection, PERRL Ears: Normal External Exam, Hearing Grossly Normal Nose: Normal Inspection, Other (Right nare has capitan grande band green/yellow residue around the nare and inside. ) Throat/Mouth: Normal Inspection, Normal Voice, No Airway Compromise Head: Atraumatic, Normocephalic Neck: Normal Inspection, Supple, Non-Tender, Full Range of Motion Respiratory/Chest: Decreased Breath Sounds, Crackles (bases bilaterally) Cardiovascular: No Edema, No Gallop, No JVD, No Murmur, No Rub Peripheral Pulses: 1+: Radial (L), Radial (R), Dorsalis Pedis (L), Dorsalis Pedis (R) GI/Abdominal: Normal Bowel Sounds, Soft, No Distention, Tender (Male) Exam: Deferred Rectal (Males) Exam: Deferred Back Exam: Normal Inspection, Full Range of Motion Extremities: Normal Inspection, Normal Range of Motion, Non-Tender, No Pedal Edema, Slow Capillary Refill Neurological: Alert, Oriented, CN II-XII Intact, Normal Cognition, Normal Gait, Normal Reflexes, No Motor/Sensory Deficits Psychiatric: Anxious Skin Exam: Dry, Intact, No Rash (Patient is very cold, bare hugger applied, color is dusky), Cool. No: Warm, Normal Color Lymphatic: No Adenopathy EKG INTERPRETATION EKG Date: 03/20/17 Time: 04:32 Rhythm: Other (A-V dual paced complexes with some inhibition) Comparison: Change From Previous EKG Course - Vital Signs Last Recorded V/S: Last Vital Signs Temp 96.5 F 03/20/17 05:51 Pulse 74 03/20/17 05:51 Resp 18 03/20/17 05:51 BP 98/72 03/20/17 05:51 Pulse Ox 100 03/20/17 05:51 - Orders/Labs/Meds Labs: Laboratory Tests 03/20/17 03/20/17 03/20/17 Range/Units 04:45 04:45 05:48 WBC 5.4 (5.0-10.0) 10^3/uL RBC 5.15 (4.6-6.2) 10^6/uL Hgb 14.3 (14.0-18.0) g/dL Hct 44.3 (40.0-54.0) % MCV 86.0 (80-100) fL MCH 27.8 (27.0-34.0) pg MCHC 32.3 L (33.0-35.0) g/dL Plt Count 230 (150-450) 10^3/uL Neut % (Auto) 51.7 (42.2-75.2) % Lymph % (Auto) 33.3 (20.5-50.1) % [place] % (Auto) 12.4 H (2-8) % Eos % (Auto) 1.1 (1.0-3.0) % Baso % (Auto) 1.5 H (0.0-1.0) % Add Manual Diff Yes Neutrophils % (Manual) 56 (42-75) % Band Neutrophils % 4 % Lymphocytes % (Manual) 36 (20-50) % Atypical Lymphs % 0 % Monocytes % (Manual) 2 (2-8) % Eosinophils % (Manual) 2 (1-3) % Basophils % (Manual) 0 Hypochromasia 1+ slight Poikilocytosis 1+ slight Target Cells Occasional Sodium 134 L (135-145) mmol/L Potassium 4.4 (3.6-5.0) mmol/L Chloride 95 L (101-111) mmol/L Carbon Dioxide 22.0 (21.0-31.0) mmol/L Anion Gap 21.4 BUN 20 H (7-18) mg/dL Creatinine 1.1 (0.6-1.3) mg/dL Est Cr Clr Drug Dosing 80.34 mL/min Estimated GFR (MDRD) > 60 BUN/Creatinine Ratio 18.18 Glucose 99 (74-105) mg/dL Calcium 9.2 (8.4-10.2) mg/dl Magnesium 1.7 L (1.8-2.5) mg/dL Total Bilirubin 2.2 H (0.2-1.0) mg/dL AST 51 H (10-42) IU/L ALT 25 (10-60) IU/L Alkaline Phosphatase 78 (42-121) IU/L Troponin I 0.05 H* (0.00-0.02) ng/ml B-Natriuretic Peptide 2920 H (0-100) pg/ml Total Protein 7.2 (6.7-8.2) g/dl Albumin 3.5 (3.2-5.5) g/dl Globulin 3.7 Albumin/Globulin Ratio 0.95 Urine Color (YELLOW) Urine Appearance (CLEAR) Urine pH (5.0-9.0) Ur Specific [place] (1.005-1.030) Urine Protein (NEGATIVE) Urine Glucose (UA) (NEGATIVE) Urine Ketones (NEGATIVE) Urine Occult Blood (NEGATIVE) Urine Nitrite (NEGATIVE) Urine Bilirubin (NEGATIVE) Urine Urobilinogen (0.2-1.0) mg/dL Ur Leukocyte Esterase (NEGATIVE) Urine Opiates Screen Negative (NEGATIVE) Ur Oxycodone Screen Positive H (NEGATIVE) Urine Methadone Screen Negative (NEGATIVE) Ur Barbiturates Screen Negative (NEGATIVE) U Tricyclic Antidepress Negative (NEGATIVE) Ur Phencyclidine Scrn Negative (NEGATIVE) Ur Amphetamine Screen Negative (NEGATIVE) U Methamphetamines Scrn Positive H (NEGATIVE) Urine MDMA Screen Negative (NEGATIVE) U Benzodiazepines Scrn Negative (NEGATIVE) Urine Cocaine Screen Negative (NEGATIVE) U Marijuana (THC) Screen Positive H (NEGATIVE) Ethyl Alcohol < 5 mg/dL 03/20/17 Range/Units 06:10 WBC (5.0-10.0) 10^3/uL RBC (4.6-6.2) 10^6/uL Hgb (14.0-18.0) g/dL Hct (40.0-54.0) % MCV (80-100) fL MCH (27.0-34.0) pg MCHC (33.0-35.0) g/dL Plt Count (150-450) 10^3/uL Neut % (Auto) (42.2-75.2) % Lymph % (Auto) (20.5-50.1) % [place] % (Auto) (2-8) % Eos % (Auto) (1.0-3.0) % Baso % (Auto) (0.0-1.0) % Add Manual Diff Neutrophils % (Manual) (42-75) % Band Neutrophils % % Lymphocytes % (Manual) (20-50) % Atypical Lymphs % % Monocytes % (Manual) (2-8) % Eosinophils % (Manual) (1-3) % Basophils % (Manual) Hypochromasia Poikilocytosis Target Cells Sodium (135-145) mmol/L Potassium (3.6-5.0) mmol/L Chloride (101-111) mmol/L Carbon Dioxide (21.0-31.0) mmol/L Anion Gap BUN (7-18) mg/dL Creatinine (0.6-1.3) mg/dL Est Cr Clr Drug Dosing mL/min Estimated GFR (MDRD) BUN/Creatinine Ratio Glucose (74-105) mg/dL Calcium (8.4-10.2) mg/dl Magnesium (1.8-2.5) mg/dL Total Bilirubin (0.2-1.0) mg/dL AST (10-42) IU/L ALT (10-60) IU/L Alkaline Phosphatase (42-121) IU/L Troponin I (0.00-0.02) ng/ml B-Natriuretic Peptide (0-100) pg/ml Total Protein (6.7-8.2) g/dl Albumin (3.2-5.5) g/dl Globulin Albumin/Globulin Ratio Urine Color Yellow (YELLOW) Urine Appearance Cloudy (CLEAR) Urine pH 5.5 (5.0-9.0) Ur Specific [place] >= 1.030 (1.005-1.030) Urine Protein >=300 H (NEGATIVE) Urine Glucose (UA) 100 H (NEGATIVE) Urine Ketones 15 H (NEGATIVE) Urine Occult Blood Large H (NEGATIVE) Urine Nitrite Negative (NEGATIVE) Urine Bilirubin Large H (NEGATIVE) Urine Urobilinogen >=8.0 H (0.2-1.0) mg/dL Ur Leukocyte Esterase Negative (NEGATIVE) Urine Opiates Screen (NEGATIVE) Ur Oxycodone Screen (NEGATIVE) Urine Methadone Screen (NEGATIVE) Ur Barbiturates Screen (NEGATIVE) U Tricyclic Antidepress (NEGATIVE) Ur Phencyclidine Scrn (NEGATIVE) Ur Amphetamine Screen (NEGATIVE) U Methamphetamines Scrn (NEGATIVE) Urine MDMA Screen (NEGATIVE) U Benzodiazepines Scrn (NEGATIVE) Urine Cocaine Screen (NEGATIVE) U Marijuana (THC) Screen (NEGATIVE) Ethyl Alcohol mg/dL Meds: Medications Discontinued Medications Generic Name Dose Route Start Last Admin Trade Name Freq PRN Reason Stop Dose Admin Furosemide 80 mg 03/20/17 05:32 03/20/17 05:39 Lasix IVPUSH 03/20/17 05:33 80 mg NOW ONE Administration Sodium Chloride 1,000 mls @ 999 mls/hr 03/20/17 04:59 03/20/17 05:01 Normal Saline IV 03/20/17 05:59 999 mls/hr .BOLUS ONE Administration Lorazepam 1 mg 03/20/17 05:51 03/20/17 05:58 Ativan IVPUSH 03/20/17 05:52 1 mg ONETIME ONE Administration Sodium Chloride 10 ml 03/20/17 04:44 03/20/17 06:01 Saline Flush FLUSH 10 ml ASDIRECTED PRN Administration Keep Vein Open - Radiology Interpretation Free Text/Narrative:: Portable Chest x-ray: stable cardiomegaly and prominence of the central pulmonary vasculature, possible slight improvement in the patient's volume status compared to last xray in Feb,. See rad report Departure - Departure Time of Disposition: 05:57 Disposition: DC/Tfer to Acute Hospital 02 Reason for Transfer *Q: Primary PCI Indicated Condition: Fair, Serious Clinical Impression: Chronic alcohol abuse, Drug abuse CHF (congestive heart failure) Qualifiers: Congestive heart failure type: unspecified congestive heart failure type Congestive heart failure chronicity: acute Qualified Code(s): I50.9 - Heart failure, unspecified Referrals: PCP,Unobtain [Primary Care Provider] - Forms: ED Department Discharge, Interfacility Transfer JUAN MANUEL
[2017-03-20] MEDS ORDERED: Sodium Chloride 0.9% 1,000 ML IV ONE (04:59)
[2017-03-20 05:08] LABS: CHLORIDE,CL 95 mmol/L (101-111); SODIUM,NA 134 mmol/L (135-145)
[2017-03-20] MEDS ORDERED: Furosemide 40 MG/4 ML VIAL IVPUSH ONE (05:32)
[2017-03-20] MEDS ORDERED: LORazepam 2 MG/ML Syringe IVPUSH ONE (05:51)
[2017-03-20 05:52] VITALS: BP 98/72
--- NOTE | 2017-03-24 19:21 | EKG ---
03/20/2017 - MANNIE MEREDITH - EKG per my reading shows sinus rhythm with paced rhythm, AV paced. [facility] /[id number]
== END 2017-03-20 06:31 ==
LOC: DL.ED 04:30
DX: I11.0 Hypertensive heart disease with heart failure (principal); I50.9 Heart failure, unspecified; F10.10 Alcohol abuse, uncomplicated; Y90.0 Blood alcohol level of less than 20 mg/100 ml; F19.10 Other psychoactive substance abuse, uncomplicated; F17.210 Nicotine dependence, cigarettes, uncomplicated; Z79.899 Other long term (current) drug therapy
CPT/HCPCS: 36415; 71045; 80053; 80305; 81003; 83735; 83880; 84484; 85025; 93005; 96361; 96374; 96375; 99285; G0480; J1940; J2060; J7030; J7050

== ENCOUNTER 2017-03-30 12:25 | Observation (INO) | payer MEDICAID, OTHER ==
[2017-03-30] MEDS ORDERED: Aspirin 81 MG Tab.Chew PO ONE (12:49)
[2017-03-30 13:07] LABS: ANION GAP 11.6; CHLORIDE,CL 102 mmol/L (101-111); SODIUM,NA 134 mmol/L (135-145)
[2017-03-30] MEDS ORDERED: Ondansetron 4 MG/2 ML SDV IV ONE (13:10)
[2017-03-30] MEDS ORDERED: Furosemide 40 MG/4 ML VIAL IVPUSH ONE (13:11)
--- NOTE | 2017-03-30 13:23 | EDM.PDOC ---
ED HPI GENERAL MEDICAL PROBLEM - General Chief Complaint: Chest Pain Stated Complaint: AMBULANCE Time Seen by Provider: 03/30/17 12:45 Source of Information: Reports: Patient History Limitations: Reports: No Limitations - History of Present Illness INITIAL COMMENTS - FREE TEXT/NARRATIVE: This 52 yo male patient reports to the ED with increased difficulties breathing , chest pain and upper abdominal pain. The patient reports he got out of [place] last week (Thursday). The patient reports he started to have increased shortness of breath and chest pains on , got worse on Thursday, Thursday and Thursday. Today, the patient reports his pain got so bad that he could not take the pain any longer. The patient reports he took the last dose of Lasix on . The patient reports he took some pain pills from his "nikita" the other day, but has not been drinking ETOH or doing drugs. The patient also reports fevers and chills over the past couple of days. Onset Date: 03/26/17 Duration: Constant, Getting Worse Location: Reports: Chest, Abdomen Quality: Reports: Dull, Pressure Severity: Moderate Improves with: Reports: None Worsens with: Reports: None Associated Symptoms: Reports: Shortness of Breath, Weakness Mid-Sternal Chest Pain Score (Numeric/FACES): 8 - Related Data Allergies Allergy/AdvReac Type Severity Reaction Status Date / Time No Known Allergies Allergy Verified 03/20/17 04:53 Home Meds: Home Meds Lisinopril 20 mg PO DAILY 07/17/14 [History] Carvedilol [Coreg] 6.25 mg PO BIDMEALS 10/18/15 [History] Spironolactone [Aldactone] 25 mg PO DAILY 10/18/15 [History] Omeprazole 20 mg PO ACBREAKFAST #30 cap.cr 12/10/16 [Rx] Sertraline [Zoloft] 50 mg PO DAILY 01/26/17 [History] Furosemide [Lasix] 40 mg PO DAILY #30 tablet 01/28/17 [Rx] Past Medical History - Past Health History Medical/Surgical History: Denies Medical/Surgical History HEENT History: Reports: None Cardiovascular History: Reports: Cardiomyopathy, Heart Failure, Heart Murmur, Hypertension, Pacemaker Respiratory History: Reports: SOB Gastrointestinal History: Reports: Gastritis, GERD Genitourinary History: Reports: Other (See Below) Other Genitourinary History: liver issues r/t ETOH Musculoskeletal History: Reports: Arthritis, Other (See Below) Other Musculoskeletal History: torn left and right upper arm tendon. Client stated he is having surgery this month. Neurological History: Reports: None Psychiatric History: Reports: Addiction, Anxiety, Panic Attack Endocrine/Metabolic History: Reports: None Hematologic History: Reports: None Immunologic History: Reports: None Oncologic (Cancer) History: Reports: None Dermatologic History: Reports: None - Infectious Disease History Infectious Disease History: Reports: None - Past Surgical History Head Surgeries/Procedures: Reports: None Cardiovascular Surgical History: Reports: Percutaneous Transluminal Angioplasty Social & Family History - Family History Family Medical History: Noncontributory Cardiac: Reports: Hypertension Other Cardiac Family History: Dad and paternal grandmother have hypertension. Respiratory: Reports: Asthma Other Respiratory Family Hisory: Mom and dad have asthma. Endocrine/Metabolic: Reports: Diabetes, Type I Other Endocrine/Metabolic Family History: Dad and paternal grandmother have type I diabetes. - Tobacco Use Smoking Status *Q: Current Every Day Smoker Years of Tobacco use: 10 Packs/Tins Daily: 1 Used Tobacco, but Quit: No Second Hand Smoke Exposure: Yes - Caffeine Use Caffeine Use: Reports: Coffee, Soda - Alcohol Use Days Per Week of Alcohol Use: 1 Number of Drinks Per Day: 10 Total Drinks Per Week: 10 - Recreational Drug Use Recreational Drug Use: Yes Drug Use in Last 12 Months: Yes Recreational Drug Type: Reports: Marijuana/Hashish, Methamphetamine Other Recreational Drug Type: meth over a month ago Recreational Drug Use Frequency: Weekly Recreational Drug Last Use: yesterday - Living Situation & Occupation Living situation: Reports: with Family ED ROS GENERAL - Review of Systems Review Of Systems: ROS reveals no pertinent complaints other than HPI. ED EXAM, GENERAL - Physical Exam Exam: See Below Exam Limited By: No Limitations General Appearance: Alert, WD/WN, Moderate Distress Eye Exam: Bilateral Eye: EOMI, Normal Inspection, PERRL Ears: Normal External Exam, Normal Canal, Hearing Grossly Normal, Normal TMs Nose: Normal Inspection, Normal Mucosa, No Blood Throat/Mouth: Normal Inspection, Normal Lips, Normal Teeth, Normal Gums, Normal Oropharynx, Normal Voice, No Airway Compromise Head: Atraumatic, Normocephalic Neck: Normal Inspection, Supple, Non-Tender, Full Range of Motion Respiratory/Chest: No Respiratory Distress, Lungs Clear, Normal Breath Sounds, No Accessory Muscle Use, Chest Non-Tender Cardiovascular: Normal Peripheral Pulses, Regular Rate, Rhythm, No Edema, No Gallop, No JVD, No Murmur, No Rub GI/Abdominal: Normal Bowel Sounds, Soft, Non-Tender, No Organomegaly, No Distention, No Abnormal Bruit, No Mass (Male) Exam: Deferred Rectal (Males) Exam: Deferred Back Exam: Normal Inspection, Full Range of Motion, NT Extremities: Normal Inspection, Normal Range of Motion, Non-Tender, Normal Capillary Refill, No Pedal Edema Neurological: Alert, Oriented, CN II-XII Intact, Normal Cognition, Normal Gait, Normal Reflexes, No Motor/Sensory Deficits Psychiatric: Normal Affect, Normal Mood Skin Exam: Warm, Dry, Intact, Normal Color, No Rash Lymphatic: No Adenopathy Course - Vital Signs Last Recorded V/S: Last Vital Signs Temp 36.6 C 03/30/17 12:25 Pulse 107 H 03/30/17 12:25 Resp 16 03/30/17 12:25 BP 93/62 03/30/17 12:25 Pulse Ox 100 03/30/17 12:25 - Orders/Labs/Meds Orders: Active Orders 24 hr Category Date Time Status EKG Documentation Completion [RC] URGENT Care 03/30/17 12:27 Active INFLUENZA A+B AG SCREEN [RM] Stat Lab 03/30/17 13:22 Uncollected Labs: Laboratory Tests 03/30/17 03/30/17 03/30/17 Range/Units 12:38 12:38 12:38 WBC 8.9 (5.0-10.0) 10^3/uL RBC 5.26 (4.6-6.2) 10^6/uL Hgb 14.0 (14.0-18.0) g/dL Hct 41.9 (40.0-54.0) % MCV 79.7 L D (80-100) fL MCH 26.6 L (27.0-34.0) pg MCHC 33.4 (33.0-35.0) g/dL Plt Count 154 D (150-450) 10^3/uL Neut % (Auto) 86.4 H (42.2-75.2) % Lymph % (Auto) 5.2 L (20.5-50.1) % [place] % (Auto) 7.5 (2-8) % Eos % (Auto) 0.7 L (1.0-3.0) % Baso % (Auto) 0.2 (0.0-1.0) % Sodium 134 L (135-145) mmol/L Potassium 3.6 (3.6-5.0) mmol/L Chloride 102 (101-111) mmol/L Carbon Dioxide 24.0 (21.0-31.0) mmol/L Anion Gap 11.6 BUN 8 (7-18) mg/dL Creatinine 0.7 (0.6-1.3) mg/dL Est Cr Clr Drug Dosing 126.25 mL/min Estimated GFR (MDRD) > 60 BUN/Creatinine Ratio 11.42 Glucose 117 H (74-105) mg/dL Calcium 8.3 L (8.4-10.2) mg/dl Magnesium 1.9 (1.8-2.5) mg/dL Total Bilirubin 2.5 H (0.2-1.0) mg/dL AST 35 (10-42) IU/L ALT 30 (10-60) IU/L Alkaline Phosphatase 76 (42-121) IU/L Troponin I 0.03 H* (0.00-0.02) ng/ml B-Natriuretic Peptide 4230 H (0-100) pg/ml Total Protein 6.8 (6.7-8.2) g/dl Albumin 3.2 (3.2-5.5) g/dl Globulin 3.6 Albumin/Globulin Ratio 0.89 Amylase 51 (28-100) U/L Lipase 15 L (22-51) U/L Urine Color (YELLOW) Urine Appearance (CLEAR) Urine pH (5.0-9.0) Ur Specific [place] (1.005-1.030) Urine Protein (NEGATIVE) Urine Glucose (UA) (NEGATIVE) Urine Ketones (NEGATIVE) Urine Occult Blood (NEGATIVE) Urine Nitrite (NEGATIVE) Urine Bilirubin (NEGATIVE) Urine Urobilinogen (0.2-1.0) mg/dL Ur Leukocyte Esterase (NEGATIVE) Urine RBC /HPF Urine WBC (0-5/HPF) /HPF Ur Epithelial Cells /HPF Urine Bacteria (0-FEW/HPF) /HPF Urine Opiates Screen (NEGATIVE) Ur Oxycodone Screen (NEGATIVE) Urine Methadone Screen (NEGATIVE) Ur Barbiturates Screen (NEGATIVE) U Tricyclic Antidepress (NEGATIVE) Ur Phencyclidine Scrn (NEGATIVE) Ur Amphetamine Screen (NEGATIVE) U Methamphetamines Scrn (NEGATIVE) Urine MDMA Screen (NEGATIVE) U Benzodiazepines Scrn (NEGATIVE) Urine Cocaine Screen (NEGATIVE) U Marijuana (THC) Screen (NEGATIVE) Ethyl Alcohol < 5 mg/dL 03/30/17 03/30/17 Range/Units 12:47 12:47 WBC (5.0-10.0) 10^3/uL RBC (4.6-6.2) 10^6/uL Hgb (14.0-18.0) g/dL Hct (40.0-54.0) % MCV (80-100) fL MCH (27.0-34.0) pg MCHC (33.0-35.0) g/dL Plt Count (150-450) 10^3/uL Neut % (Auto) (42.2-75.2) % Lymph % (Auto) (20.5-50.1) % [place] % (Auto) (2-8) % Eos % (Auto) (1.0-3.0) % Baso % (Auto) (0.0-1.0) % Sodium (135-145) mmol/L Potassium (3.6-5.0) mmol/L Chloride (101-111) mmol/L Carbon Dioxide (21.0-31.0) mmol/L Anion Gap BUN (7-18) mg/dL Creatinine (0.6-1.3) mg/dL Est Cr Clr Drug Dosing mL/min Estimated GFR (MDRD) BUN/Creatinine Ratio Glucose (74-105) mg/dL Calcium (8.4-10.2) mg/dl Magnesium (1.8-2.5) mg/dL Total Bilirubin (0.2-1.0) mg/dL AST (10-42) IU/L ALT (10-60) IU/L Alkaline Phosphatase (42-121) IU/L Troponin I (0.00-0.02) ng/ml B-Natriuretic Peptide (0-100) pg/ml Total Protein (6.7-8.2) g/dl Albumin (3.2-5.5) g/dl Globulin Albumin/Globulin Ratio Amylase (28-100) U/L Lipase (22-51) U/L Urine Color Yellow (YELLOW) Urine Appearance Clear (CLEAR) Urine pH 8.0 (5.0-9.0) Ur Specific [place] 1.015 (1.005-1.030) Urine Protein Negative (NEGATIVE) Urine Glucose (UA) Negative (NEGATIVE) Urine Ketones Negative (NEGATIVE) Urine Occult Blood Trace-intact H (NEGATIVE) Urine Nitrite Negative (NEGATIVE) Urine Bilirubin Negative (NEGATIVE) Urine Urobilinogen 4.0 H (0.2-1.0) mg/dL Ur Leukocyte Esterase Negative (NEGATIVE) Urine RBC 0-5 /HPF Urine WBC 0-5 (0-5/HPF) /HPF Ur Epithelial Cells Rare /HPF Urine Bacteria Few (0-FEW/HPF) /HPF Urine Opiates Screen Negative (NEGATIVE) Ur Oxycodone Screen Positive H (NEGATIVE) Urine Methadone Screen Negative (NEGATIVE) Ur Barbiturates Screen Negative (NEGATIVE) U Tricyclic Antidepress Negative (NEGATIVE) Ur Phencyclidine Scrn Negative (NEGATIVE) Ur Amphetamine Screen Negative (NEGATIVE) U Methamphetamines Scrn Negative (NEGATIVE) Urine MDMA Screen Negative (NEGATIVE) U Benzodiazepines Scrn Positive H (NEGATIVE) Urine Cocaine Screen Negative (NEGATIVE) U Marijuana (THC) Screen Positive H (NEGATIVE) Ethyl Alcohol mg/dL Meds: Medications Discontinued Medications Generic Name Dose Route Start Last Admin Trade Name Walter PRN Reason Stop Dose Admin Aspirin 324 mg 03/30/17 12:49 03/30/17 13:26 Aspirin PO 03/30/17 12:50 324 mg ONETIME ONE Administration Furosemide 40 mg 03/30/17 13:11 03/30/17 13:22 Lasix IVPUSH 03/30/17 13:12 40 mg NOW ONE Administration Ondansetron HCl 4 mg 03/30/17 13:10 03/30/17 13:21 Zofran IV 03/30/17 13:11 4 mg ONETIME ONE Administration Departure - Departure Time of Disposition: 13:36 Disposition: Admitted As Inpatient 68 Condition: Fair Clinical Impression: Acute exacerbation of CHF (congestive heart failure) Qualifiers: Congestive heart failure type: unspecified congestive heart failure type Qualified Code(s): I50.9 - Heart failure, unspecified Care Plan Goals: Discussed the patient's history, lab, EKG and x-ray results with Dr. Norris. Dr. Dalmi accepted the patient for continued evaluation and further management as an inpatient at [facility]. - My Orders Last 24 Hours: My Active Orders 03/30/17 12:27 EKG Documentation Completion [RC] URGENT 03/30/17 13:22 INFLUENZA A+B AG SCREEN [RM] Stat - Assessment/Plan Last 24 Hours: My Active Orders 03/30/17 12:27 EKG Documentation Completion [RC] URGENT 03/30/17 13:22 INFLUENZA A+B AG SCREEN [RM] Stat
--- NOTE | 2017-03-30 13:30 | CR ---
Clinical history: 52-year-old chest pain. Interpretation: Markedly abnormal but no acute new radiographic abnormality when compared directly to 20 March 2017 exam. Abnormally enlarged cardiac silhouette (cardiomyopathy and/or pericardial effusion) this patient with cardiac pacemaker (leads intact). External groundwater monitoring technician leads. Symmetrically prominent proximal pulmonary artery segments. No new signs of alveolar edema or pleura l fluid accumulation. No new lung mass, hilar lymphadenopathy or focal lobar pneumonia. No atelectasis/collapse or pneumothorax.
[2017-03-30] MEDS ORDERED: Albuterol 0.083% 2.5 MG/3 ML Neb Soln NEB PRN (15:06)
[2017-03-30] MEDS ORDERED: Acetaminophen 325 MG Tab PO PRN (15:06)
--- NOTE | 2017-03-30 15:27 | PCM.HP ---
H&P History of Present Illness - General Date of Service: 03/30/17 Admit Problem/Dx: Admission Diagnosis/Problem Admission Diagnosis/Problem Chest pain Source of Information: Patient - History of Present Illness Initial Comments - Free Text/Narative: 52-year-old gentleman with a history of cardiomyopathy. repeated episodes of chest pain which to be noncardiac. The patient has a chronic systolic congestive heart failure. He was recently hospitalized in [place] with [place] He was discharged on levofloxacin. His medications were adjusted. He says he was doing well for a few days but then started to have nausea, could not take his medications. He presented to the emergency room with chest pain, increasing shortness of breath. Mid-Sternal Chest Pain Score (Numeric/FACES): 8 - Related Data Allergies/Adverse Reactions: Allergies Allergy/AdvReac Type Severity Reaction Status Date / Time No Known Allergies Allergy Verified 03/20/17 04:53 Home Medications: Home Meds Lisinopril 20 mg PO DAILY 07/17/14 [History] Carvedilol [Coreg] 6.25 mg PO BIDMEALS 10/18/15 [History] Spironolactone [Aldactone] 25 mg PO DAILY 10/18/15 [History] Omeprazole 20 mg PO ACBREAKFAST #30 cap.cr 12/10/16 [Rx] Sertraline [Zoloft] 50 mg PO DAILY 01/26/17 [History] Furosemide [Lasix] 40 mg PO DAILY #30 tablet 01/28/17 [Rx] Past Medical History - Past Health History Medical/Surgical History: Denies Medical/Surgical History HEENT History: Reports: None Cardiovascular History: Reports: Cardiomyopathy, Heart Failure, Heart Murmur, Hypertension, Pacemaker Respiratory History: Reports: SOB Gastrointestinal History: Reports: Gastritis, GERD Genitourinary History: Reports: Other (See Below) Other Genitourinary History: liver issues r/t ETOH Musculoskeletal History: Reports: Arthritis, Other (See Below) Other Musculoskeletal History: torn left and right upper arm tendon. Client stated he is having surgery this month. Neurological History: Reports: None Psychiatric History: Reports: Addiction, Anxiety, Panic Attack Endocrine/Metabolic History: Reports: None Hematologic History: Reports: None Immunologic History: Reports: None Oncologic (Cancer) History: Reports: None Dermatologic History: Reports: None - Infectious Disease History Infectious Disease History: Reports: None - Past Surgical History Head Surgeries/Procedures: Reports: None Cardiovascular Surgical History: Reports: Percutaneous Transluminal Angioplasty Social & Family History - Family History Family Medical History: Noncontributory Cardiac: Reports: Hypertension Other Cardiac Family History: Dad and paternal grandmother have hypertension. Respiratory: Reports: Asthma Other Respiratory Family Hisory: Mom and dad have asthma. Endocrine/Metabolic: Reports: Diabetes, Type I Other Endocrine/Metabolic Family History: Dad and paternal grandmother have type I diabetes. - Tobacco Use Smoking Status *Q: Current Every Day Smoker Years of Tobacco use: 10 Packs/Tins Daily: 1 Used Tobacco, but Quit: No Second Hand Smoke Exposure: Yes - Caffeine Use Caffeine Use: Reports: Coffee, Soda - Alcohol Use Days Per Week of Alcohol Use: 1 Number of Drinks Per Day: 10 Total Drinks Per Week: 10 - Recreational Drug Use Recreational Drug Use: Yes Drug Use in Last 12 Months: Yes Recreational Drug Type: Reports: Marijuana/Hashish, Methamphetamine Other Recreational Drug Type: meth over a month ago Recreational Drug Use Frequency: Weekly Recreational Drug Last Use: yesterday - Living Situation & Occupation Living situation: Reports: with Family H&P Review of Systems - Review of Systems: Review Of Systems: See Below General: Denies: Fever Pulmonary: Reports: Shortness of Breath. Denies: Wheezing Cardiovascular: Reports: Chest Pain. Denies: Edema Gastrointestinal: Reports: Nausea, Vomiting. Denies: Abdominal Pain Exam - Exam Exam: See Below - Vital Signs Vital Signs: Last Vital Signs Temp 36.9 C 03/30/17 14:48 Pulse 116 H 03/30/17 14:48 Resp 14 03/30/17 14:48 BP 100/79 03/30/17 14:48 Pulse Ox 100 03/30/17 14:48 Weight: 77.836 kg - Exam General: Alert, Oriented Neck: Supple Lungs: Clear to Auscultation, Normal Respiratory Effort Cardiovascular: Regular Rate, Regular Rhythm GI/Abdominal Exam: Normal Bowel Sounds, Soft, Non-Tender Extremities: No Pedal Edema Skin: Warm, Dry Neuro Extensive - Mental Status: Alert, Oriented x3, Normal Mood/Affect Psychiatric: Alert, Normal Affect, Normal Mood - Patient Data Result Diagrams: 03/30/17 12:38 03/30/17 12:38 EKG INTERPRETATION EKG Interpretation Comments: Atrial sensed V paced rhythm *Q Meaningful Use (ADM) - VTE *Q VTE Criteria *Q: - Stroke *Q Stroke Criteria *Q: - AMI *Q AMI Criteria *Q: - Problem List (1) Atypical chest pain SNOMED Code(s): 043905136 ICD Code: R07.89 - OTHER CHEST PAIN Status: Acute Current Visit: No (2) Chronic systolic HF (heart failure) SNOMED Code(s): 550200724 ICD Code: I50.22 - CHRONIC SYSTOLIC (CONGESTIVE) HEART FAILURE Status: Acute Current Visit: No (3) Shortness of breath SNOMED Code(s): 565852835 ICD Code: R06.02 - SHORTNESS OF BREATH Status: Acute Current Visit: No (4) Vomiting SNOMED Code(s): 167884928 ICD Code: R11.10 - VOMITING, UNSPECIFIED Status: Acute Current Visit: No Problem List Initiated/Reviewed/Updated: Yes Orders Last 24hrs: Active Orders 24 hr Category Date Time Status Patient Status [ADT] Routine ADT 03/30/17 15:07 Ordered Antiembolic Devices [RC] PER UNIT ROUTINE Care 03/30/17 15:08 Ordered Oxygen Therapy [RC] PRN Care 03/30/17 15:07 Ordered Peripheral IV Care [RC] . DIRECTED Care 03/30/17 15:09 Ordered RT Aerosol Therapy [RC] ASDIRECTED Care 03/30/17 15:09 Ordered Up With Assistance [RC] ASDIRECTED Care 03/30/17 15:06 Ordered VTE/DVT Education [RC] PER UNIT ROUTINE Care 03/30/17 15:07 Ordered Vital Signs [RC] Q4H Care 03/30/17 15:07 Ordered Clear Liquid Diet [DIET] Diet 03/30/17 Dinner Ordered BASIC METABOLIC PANEL,BMP [CHEM] AM Lab 03/31/17 05:15 Ordered CBC WITH AUTO DIFF [HEME] AM Lab 03/31/17 05:15 Ordered TROPONIN I [CHEM] AM Lab 03/31/17 05:11 Ordered TROPONIN I [CHEM] Timed Lab 03/30/17 18:00 Ordered Acetaminophen [Tylenol] Med 03/30/17 15:06 Ordered 650 mg PO Q4H PRN Albuterol [Proventil Neb Soln] Med 03/30/17 15:06 Ordered 2.5 mg NEB Q2H PRN Carvedilol [Coreg] Med 03/30/17 18:00 Ordered 3.125 mg PO BIDMEALS Furosemide [Lasix] Med 03/31/17 09:00 Ordered 40 mg PO DAILY Heparin Sodium Med 03/30/17 22:00 Ordered 5,000 units SUBCUT Q8HR Ibuprofen [Motrin] Med 03/30/17 15:06 Ordered 400 mg PO Q6H PRN Lisinopril [Prinivil] Med 03/31/17 09:00 Ordered 2.5 mg PO DAILY Omeprazole Med 03/31/17 06:00 Ordered 20 mg PO ACBREAKFAST Ondansetron [Zofran] Med 03/30/17 15:06 Ordered 4 mg IVPUSH Q6H PRN Sertraline [Zoloft] Med 03/31/17 09:00 Ordered 50 mg PO DAILY Sodium Chloride 0.9% [Saline Flush] Med 03/30/17 15:06 Ordered 10 ml FLUSH ASDIRECTED PRN Spironolactone [Aldactone] Med 03/31/17 09:00 Ordered 25 mg PO DAILY Zolpidem [Ambien] Med 03/30/17 15:06 Ordered 5 mg PO BEDTIME PRN Antiembolic Hose [OM.PC] Per Unit Routine Oth 03/30/17 15:07 Ordered Peripheral IV Insertion Adult [OM.PC] Routine Oth 03/30/17 15:06 Ordered Saline Lock Insert [OM.PC] Routine Oth 03/30/17 15:06 Ordered Resuscitation Status Routine Resus Stat 03/30/17 15:06 Ordered Medication Orders Acetaminophen (Tylenol) 650 mg PO Q4H PRN PRN Reason: Pain (Mild 1-3)/fever Albuterol (Proventil Neb Soln) 2.5 mg NEB Q2H PRN PRN Reason: shortness of breath/wheezing Carvedilol (Coreg) 3.125 mg PO BIDMEALS [facility] Furosemide (Lasix) 40 mg PO DAILY [facility] Heparin Sodium (Porcine) (Heparin Sodium) 5,000 units SUBCUT Q8HR [facility] Ibuprofen (Motrin) 400 mg PO Q6H PRN PRN Reason: Pain (mild 1-3) Lisinopril (Prinivil) 2.5 mg PO DAILY [facility] Omeprazole (Omeprazole) 20 mg PO ACBREAKFAST [facility] Ondansetron HCl (Zofran) 4 mg IVPUSH Q6H PRN PRN Reason: Nausea/Vomiting Sertraline HCl (Zoloft) 50 mg PO DAILY [facility] Sodium Chloride (Saline Flush) 10 ml FLUSH ASDIRECTED PRN PRN Reason: Keep Vein Open Spironolactone (Aldactone) 25 mg PO DAILY [facility] Zolpidem Tartrate (Ambien) 5 mg PO BEDTIME PRN PRN Reason: Sleep Assessment/Plan Comment:: 52-year-old gentleman. Cardiomyopathy, chronic congestive heart failure Presented with nausea, chest pain, shortness of breath #1 chest pain The patient has a history of frequent episodes of chest pain. This usually is noncardiac in origin. given His history of cardiomyopathy we will monitor closely, telemetry, repeat troponins. #2 chronic congestive heart failure secondary to systolic dysfunction I do not think the patient has an acute exacerbation. He says he was not taking his medications but probably because of the nausea he was not taking in much fluid either. He has no edema, good saturations on room air, no obvious CHF on chest x-ray Elevated BNP might relate to do chronic systolic heart failure I will continue the Lasix, lisinopril, Coreg, aldactone combination #3 nausea, vomiting Will use antiemetics, clear liquid diet #4 substance abuse We will avoid narcotics #5 DVT prophylaxis with subcutaneous heparin
[2017-03-30] MEDS: Ondansetron 4 MG/2 ML SDV IVPUSH PRN ×2 (16:39→23:25)
[2017-03-30] MEDS: Ibuprofen 400 MG Tab PO PRN (21:00)
[2017-03-30] MEDS: Heparin Sodium 5,000 Units/ML Vial SUBCUT SCH (21:02)
[2017-03-30] MEDS: Sodium Chloride 0.9% 10 ML Syringe FLUSH PRN ×3 (21:03→23:45)
[2017-03-30] MEDS: Carvedilol 6.25 MG Tab PO SCH (23:19)
[2017-03-30] MEDS: Zolpidem 5 MG Tab PO PRN (23:53)
[2017-03-31] MEDS: Ibuprofen 400 MG Tab PO PRN ×3 (05:43→19:54)
[2017-03-31] MEDS: Heparin Sodium 5,000 Units/ML Vial SUBCUT SCH ×3 (06:40→21:26)
[2017-03-31] MEDS: Omeprazole 20 MG Cap.CR PO SCH (06:40)
[2017-03-31 07:03] LABS: ANION GAP 14.7; CHLORIDE,CL 100 mmol/L (101-111); SODIUM,NA 132 mmol/L (135-145)
[2017-03-31] MEDS: Lisinopril 5 MG Tab PO SCH (08:41)
[2017-03-31] MEDS: Furosemide 40 MG Tab PO SCH (08:41)
[2017-03-31] MEDS: Sertraline 50 MG Tab PO SCH (08:41)
[2017-03-31] MEDS: Carvedilol 6.25 MG Tab PO SCH ×2 (08:42→17:39)
[2017-03-31] MEDS: Spironolactone 25 MG Tab PO SCH (08:42)
[2017-03-31] MEDS: Sodium Chloride 0.9% 10 ML Syringe FLUSH PRN ×2 (09:05→21:29)
[2017-03-31] MEDS: Ondansetron 4 MG/2 ML SDV IVPUSH PRN ×2 (09:05→15:05)
--- NOTE | 2017-03-31 10:13 | PCM.PN ---
- General Info Date of Service: 03/31/17 Admission Dx/Problem (Free Text): Admission Diagnosis/Problem Admission Diagnosis/Problem Chest pain, nausea Subjective Update: continues to c/o nausea but was able to eat clear liquids no vomiting noted by nursing low grade temp noted this morning no associated abd pain, no diarrhea - Review of Systems General: Reports: Fever, Weakness Pulmonary: Denies: Shortness of Breath Cardiovascular: Denies: Chest Pain Gastrointestinal: Reports: Nausea. Denies: Abdominal Pain, Vomiting Musculoskeletal: Denies: Leg Pain Neurological: Denies: Confusion - Patient Data Vitals - Most Recent: Last Vital Signs Temp 37.7 C 03/31/17 07:00 Pulse 114 H 03/31/17 08:42 Resp 18 03/31/17 07:00 BP 96/71 03/31/17 08:41 Pulse Ox 98 03/31/17 07:00 Weight - Most Recent: 77.836 kg I&O - Last 24 Hours: Intake & Output 03/30/17 03/31/17 03/31/17 22:59 06:59 14:59 Intake Total 700 Balance 700 Lab Results Last 24 Hours: Laboratory Results - last 24 hr 03/30/17 03/31/17 03/31/17 Range/Units 18:08 06:28 06:28 WBC 9.1 (5.0-10.0) 10^3/uL RBC 5.17 (4.6-6.2) 10^6/uL Hgb 13.8 L (14.0-18.0) g/dL Hct 40.8 (40.0-54.0) % MCV 78.9 L (80-100) fL MCH 26.7 L (27.0-34.0) pg MCHC 33.8 (33.0-35.0) g/dL Plt Count 159 (150-450) 10^3/uL Neut % (Auto) 81.4 H (42.2-75.2) % Lymph % (Auto) 5.5 L (20.5-50.1) % [place] % (Auto) 8.2 H (2-8) % Eos % (Auto) 4.5 H (1.0-3.0) % Baso % (Auto) 0.4 (0.0-1.0) % Sodium 132 L (135-145) mmol/L Potassium 3.7 (3.6-5.0) mmol/L Chloride 100 L (101-111) mmol/L Carbon Dioxide 21.0 (21.0-31.0) mmol/L Anion Gap 14.7 BUN 10 (7-18) mg/dL Creatinine 0.7 (0.6-1.3) mg/dL Est Cr Clr Drug Dosing 126.25 mL/min Estimated GFR (MDRD) > 60 Glucose 104 (74-105) mg/dL Calcium 8.0 L (8.4-10.2) mg/dl Troponin I 0.03 H* 0.03 H* (0.00-0.02) ng/ml Med Orders - Current: Current Medications Acetaminophen (Tylenol) 650 mg PO Q4H PRN PRN Reason: Pain (Mild 1-3)/fever Last Admin: 03/30/17 16:38 Dose: 650 mg Albuterol (Proventil Neb Soln) 2.5 mg NEB Q2H PRN PRN Reason: shortness of breath/wheezing Carvedilol (Coreg) 3.125 mg PO BIDMEALS [facility] Last Admin: 03/31/17 08:42 Dose: 3.125 mg Furosemide (Lasix) 40 mg PO DAILY [facility] Last Admin: 03/31/17 08:41 Dose: 40 mg Heparin Sodium (Porcine) (Heparin Sodium) 5,000 units SUBCUT Q8HR [facility] Last Admin: 03/31/17 06:40 Dose: 5,000 units Ibuprofen (Motrin) 400 mg PO Q6H PRN PRN Reason: Pain (mild 1-3) Last Admin: 03/31/17 05:43 Dose: 400 mg Lisinopril (Prinivil) 2.5 mg PO DAILY [facility] Last Admin: 03/31/17 08:41 Dose: 2.5 mg Omeprazole (Omeprazole) 20 mg PO ACBREAKFAST [facility] Last Admin: 03/31/17 06:40 Dose: 20 mg Ondansetron HCl (Zofran) 4 mg IVPUSH Q6H PRN PRN Reason: Nausea/Vomiting Last Admin: 03/31/17 09:05 Dose: 4 mg Sertraline HCl (Zoloft) 50 mg PO DAILY [facility] Last Admin: 03/31/17 08:41 Dose: 50 mg Sodium Chloride (Saline Flush) 10 ml FLUSH ASDIRECTED PRN PRN Reason: Keep Vein Open Last Admin: 03/31/17 09:05 Dose: 10 ml Spironolactone (Aldactone) 25 mg PO DAILY [facility] Last Admin: 03/31/17 08:42 Dose: 25 mg Zolpidem Tartrate (Ambien) 5 mg PO BEDTIME PRN PRN Reason: Sleep Last Admin: 03/30/17 23:53 Dose: 5 mg Discontinued Medications Aspirin (Aspirin) 324 mg PO ONETIME ONE Stop: 03/30/17 12:50 Last Admin: 03/30/17 13:26 Dose: 324 mg Furosemide (Lasix) 40 mg IVPUSH NOW ONE Stop: 03/30/17 13:12 Last Admin: 03/30/17 13:22 Dose: 40 mg Ondansetron HCl (Zofran) 4 mg IV ONETIME ONE Stop: 03/30/17 13:11 Last Admin: 03/30/17 13:21 Dose: 4 mg - Exam General: Alert, Oriented Neck: Supple Lungs: Clear to Auscultation, Normal Respiratory Effort Cardiovascular: Regular Rate, Regular Rhythm GI/Abdominal Exam: Normal Bowel Sounds, Soft, Non-Tender Extremities: No Pedal Edema Skin: Warm Neurological: No New Focal Deficit Psy/Mental Status: Alert, Normal Affect, Normal Mood - Problem List & Annotations (1) Atypical chest pain SNOMED Code(s): 933440831 Code(s): R07.89 - OTHER CHEST PAIN Status: Acute Current Visit: No (2) Chronic systolic HF (heart failure) SNOMED Code(s): 119774875 Code(s): I50.22 - CHRONIC SYSTOLIC (CONGESTIVE) HEART FAILURE Status: Acute Current Visit: No (3) Shortness of breath SNOMED Code(s): 455458622 Code(s): R06.02 - SHORTNESS OF BREATH Status: Acute Current Visit: No (4) Vomiting SNOMED Code(s): 962508335 Code(s): R11.10 - VOMITING, UNSPECIFIED Status: Acute Current Visit: No - Problem List Review Problem List Initiated/Reviewed/Updated: Yes - My Orders Last 24 Hours: My Active Orders 03/30/17 15:34 Telemetry Monitoring [Cardiac Monitoring] [RC] 08,20 03/30/17 Dinner Clear Liquid Diet [DIET] - Plan Plan:: 52-year-old gentleman. Cardiomyopathy, chronic congestive heart failure Presented with nausea, chest pain, shortness of breath #1 chest pain The patient has a history of frequent episodes of chest pain. This very likely noncardiac in origin. no significant arrythmia on telemetry, repeat troponins are stable #2 chronic congestive heart failure secondary to systolic dysfunction I do not think the patient has an acute exacerbation. He says he was not taking his medications but probably because of the nausea he was not taking in much fluid either. He has no edema, good saturations on room air, no obvious CHF on chest x-ray Elevated BNP might relate to do chronic systolic heart failure I will continue the Lasix, lisinopril, Coreg, aldactone combination #3 nausea, vomiting likely due to marijuana Will use antiemetics, clear liquid diet #4 substance abuse We will avoid narcotics #5 Hyponatremia mild will follow with diuretics #6 DVT prophylaxis with subcutaneous heparin
[2017-03-31] MEDS: Zolpidem 5 MG Tab PO PRN (22:28)
[2017-04-01] MEDS: Heparin Sodium 5,000 Units/ML Vial SUBCUT SCH (08:04)
[2017-04-01] MEDS: Omeprazole 20 MG Cap.CR PO SCH (08:05)
[2017-04-01] MEDS: Sertraline 50 MG Tab PO SCH (08:20)
[2017-04-01] MEDS: Spironolactone 25 MG Tab PO SCH (08:20)
[2017-04-01] MEDS: Furosemide 40 MG Tab PO SCH (08:20)
[2017-04-01] MEDS: Ibuprofen 400 MG Tab PO PRN (08:44)
[2017-04-01] MEDS: Carvedilol 6.25 MG Tab PO SCH (08:45)
[2017-04-01] MEDS: Lisinopril 5 MG Tab PO SCH (08:45)
--- NOTE | 2017-04-01 09:32 | EKG ---
03/30/2017- MANNIE MEREDITH - EKG per my reading shows ventricular paced rhythm at a rate of 109 with atrial sensation. [facility] /[id number]
[2017-04-01 11:34] VITALS: BP 98/69
--- NOTE | 2017-04-01 12:52 | PCM.DCSUM1 ---
Discharge Summary - Hospital Course Free Text/Narrative:: See below HPI Initial Comments: See below Brief History: see below - Discharge Data Discharge Date: 04/01/17 Discharge Disposition: Home, Self-Care 01 Condition: Good - Patient Instructions Diet: Heart Healthy Diet, Low Sodium Fluid Restriction: 2000 mL Activity: As Tolerated Driving: May Drive Today Showering/Bathing: May Shower Notify Provider of: Fever, Swelling and Redness Other/Special Instructions: F/up with PMD in one week - Discharge Plan Home Medications: Home Meds Carvedilol [Coreg] 6.25 mg PO BIDMEALS 10/18/15 [History] Spironolactone [Aldactone] 25 mg PO DAILY 10/18/15 [History] Omeprazole 20 mg PO ACBREAKFAST #30 cap.cr 12/10/16 [Rx] Sertraline [Zoloft] 50 mg PO DAILY 01/26/17 [History] Furosemide [Lasix] 40 mg PO DAILY #30 tablet 01/28/17 [Rx] Lisinopril 2.5 mg PO DAILY 03/30/17 [History] Albuterol [IJD: Albuterol] 2.5 mg NEB Q2H PRN nebule 04/01/17 [Rx] Patient Handouts: Shortness of Breath, [id number], Heart Failure, Easy-to- Read Referrals: PCP,Unobtain [Ordering Only Provider] - - Discharge Summary/Plan Comment Discharge Summary/Plan Comment: 52-year-old gentleman. Cardiomyopathy, chronic congestive heart failure Presented with nausea, chest pain, shortness of breath #1 chest pain The patient has a history of frequent episodes of chest pain. This very likely noncardiac in origin. no significant arrythmia on telemetry, repeat troponins are stable #2 chronic congestive heart failure secondary to systolic dysfunction I do not think the patient has an acute exacerbation. He has no edema, good saturations on room air, no obvious CHF on chest x-ray Elevated BNP might relate to do chronic systolic heart failure I will continue the Lasix, lisinopril, Coreg, aldactone combination The patient is notoriously poorly compliant with medications #3 nausea, vomiting likely due to marijuana Counseling provided #4 substance abuse We will avoid narcotics #5 Hyponatremia mild will follow with diuretics - General Info Functional Status: Reports: Pain Controlled - Review of Systems General: Reports: No Symptoms Pulmonary: Reports: No Symptoms Cardiovascular: Reports: No Symptoms Gastrointestinal: Reports: No Symptoms Skin: Reports: No Symptoms - Patient Data Vitals - Most Recent: Last Vital Signs Temp 36.2 C 04/01/17 11:00 Pulse 97 04/01/17 11:00 Resp 20 04/01/17 11:00 BP 98/69 04/01/17 11:00 Pulse Ox 99 04/01/17 11:00 Weight - Most Recent: 77.836 kg I&O - Last 24 hours: Intake & Output 03/31/17 04/01/17 04/01/17 22:59 06:59 14:59 Intake Total 1080 860 Output Total 300 Balance 780 860 Med Orders - Current: Current Medications Discontinued Medications Acetaminophen (Tylenol) 650 mg PO Q4H PRN PRN Reason: Pain (Mild 1-3)/fever Last Admin: 03/30/17 16:38 Dose: 650 mg Albuterol (Proventil Neb Soln) 2.5 mg NEB Q2H PRN PRN Reason: shortness of breath/wheezing Aspirin (Aspirin) 324 mg PO ONETIME ONE Stop: 03/30/17 12:50 Last Admin: 03/30/17 13:26 Dose: 324 mg Carvedilol (Coreg) 3.125 mg PO BIDMEALS [facility] Last Admin: 04/01/17 08:45 Dose: Not Given Furosemide (Lasix) 40 mg IVPUSH NOW ONE Stop: 03/30/17 13:12 Last Admin: 03/30/17 13:22 Dose: 40 mg Furosemide (Lasix) 40 mg PO DAILY [facility] Last Admin: 04/01/17 08:20 Dose: 40 mg Heparin Sodium (Porcine) (Heparin Sodium) 5,000 units SUBCUT Q8HR [facility] Last Admin: 04/01/17 08:04 Dose: Not Given Ibuprofen (Motrin) 400 mg PO Q6H PRN PRN Reason: Pain (mild 1-3) Last Admin: 04/01/17 08:44 Dose: 400 mg Lisinopril (Prinivil) 2.5 mg PO DAILY [facility] Last Admin: 04/01/17 08:45 Dose: Not Given Omeprazole (Omeprazole) 20 mg PO ACBREAKFAST [facility] Last Admin: 04/01/17 08:05 Dose: Not Given Ondansetron HCl (Zofran) 4 mg IV ONETIME ONE Stop: 03/30/17 13:11 Last Admin: 03/30/17 13:21 Dose: 4 mg Ondansetron HCl (Zofran) 4 mg IVPUSH Q6H PRN PRN Reason: Nausea/Vomiting Last Admin: 03/31/17 15:05 Dose: 4 mg Sertraline HCl (Zoloft) 50 mg PO DAILY [facility] Last Admin: 04/01/17 08:20 Dose: 50 mg Sodium Chloride (Saline Flush) 10 ml FLUSH ASDIRECTED PRN PRN Reason: Keep Vein Open Last Admin: 03/31/17 21:29 Dose: 10 ml Spironolactone (Aldactone) 25 mg PO DAILY [facility] Last Admin: 04/01/17 08:20 Dose: 25 mg Zolpidem Tartrate (Ambien) 5 mg PO BEDTIME PRN PRN Reason: Sleep Last Admin: 03/31/17 22:28 Dose: 5 mg - Exam General: Reports: Oriented, Cooperative Lungs: Reports: Clear to Auscultation Cardiovascular: Reports: Murmurs Extremities: Normal Inspection Neurological: Reports: No New Focal Deficit, Normal Gait *Q Meaningful Use (DIS) - VTE *Q VTE Criteria *Q: - Stroke *Q Stroke Criteria *Q: - AMI *Q AMI Criteria *Q:
== END 2017-04-01 12:15 | disposition home or self-care (01) ==
LOC: DL.ED 12:25 → DL.MS 14:38 → UNDOADMOB 14:38 → INTOOBSV 14:38 → DL.MS 15:07
PROVIDERS: ADMIT Internal Medicine; ATTEND Internal Medicine
DX: R07.89 Other chest pain (principal); I50.22 Chronic systolic (congestive) heart failure; R11.2 Nausea with vomiting, unspecified; E87.1 Hypo-osmolality and hyponatremia; K21.9 Gastro-esophageal reflux disease without esophagitis; I10 Essential (primary) hypertension; F41.9 Anxiety disorder, unspecified; Z95.5 Presence of coronary angioplasty implant and graft; F17.210 Nicotine dependence, cigarettes, uncomplicated; Z79.899 Other long term (current) drug therapy
CPT/HCPCS: 36415; 71045; 80048; 80053; 80305; 81001; 82150; 83690; 83735; 83880; 84484; 85025; 87804; 93005; 96372; 96374; 96375; 96376; 99285; A9270; G0378; G0480; J1644; J1940; J2405; J7050

== ENCOUNTER 2017-04-16 05:05 | Inpatient (IN) | payer MEDICAID, OTHER ==
--- NOTE | 2017-04-16 05:18 | EDM.PDOC ---
ED HPI GENERAL MEDICAL PROBLEM - General Chief Complaint: Respiratory Problem Stated Complaint: AMBULANCE Time Seen by Provider: 04/16/17 05:10 Source of Information: Reports: Patient, EMS History Limitations: Reports: No Limitations - History of Present Illness INITIAL COMMENTS - FREE TEXT/NARRATIVE: ED with complaint of productive cough green phlegm and general body aches. Has had chills today. Reports hx of pneumonia approximately 2 weeks ago. States he has been taking his water pill 3 times a day. Chest pain only with deep breath. Chest Pain Score (Numeric/FACES): 7 - Related Data Allergies Allergy/AdvReac Type Severity Reaction Status Date / Time No Known Allergies Allergy Verified 04/16/17 05:33 Home Meds: Home Meds Carvedilol [Coreg] 6.25 mg PO BIDMEALS 10/18/15 [History] Spironolactone [Aldactone] 25 mg PO DAILY 10/18/15 [History] Omeprazole 20 mg PO ACBREAKFAST #30 cap.cr 12/10/16 [Rx] Sertraline [Zoloft] 50 mg PO DAILY 01/26/17 [History] Furosemide [Lasix] 40 mg PO DAILY #30 tablet 01/28/17 [Rx] Lisinopril 2.5 mg PO DAILY 03/30/17 [History] Past Medical History - Past Health History Medical/Surgical History: Denies Medical/Surgical History HEENT History: Reports: None Cardiovascular History: Reports: Cardiomyopathy, Heart Failure, Heart Murmur, Hypertension, Pacemaker Respiratory History: Reports: SOB Gastrointestinal History: Reports: Gastritis, GERD Genitourinary History: Reports: Other (See Below) Other Genitourinary History: liver issues r/t ETOH Musculoskeletal History: Reports: Arthritis, Other (See Below) Other Musculoskeletal History: torn left and right upper arm tendon. Client stated he is having surgery this month. Neurological History: Reports: None Psychiatric History: Reports: Addiction, Anxiety, Panic Attack Endocrine/Metabolic History: Reports: None Hematologic History: Reports: None Immunologic History: Reports: None Oncologic (Cancer) History: Reports: None Dermatologic History: Reports: None - Infectious Disease History Infectious Disease History: Reports: None - Past Surgical History Head Surgeries/Procedures: Reports: None Cardiovascular Surgical History: Reports: Percutaneous Transluminal Angioplasty Social & Family History - Family History Family Medical History: Noncontributory Cardiac: Reports: Hypertension Other Cardiac Family History: Dad and paternal grandmother have hypertension. Respiratory: Reports: Asthma Other Respiratory Family Hisory: Mom and dad have asthma. Endocrine/Metabolic: Reports: Diabetes, Type I Other Endocrine/Metabolic Family History: Dad and paternal grandmother have type I diabetes. - Tobacco Use Smoking Status *Q: Current Some Day Smoker Years of Tobacco use: 10 Packs/Tins Daily: 0.5 Used Tobacco, but Quit: No Second Hand Smoke Exposure: Yes - Caffeine Use Caffeine Use: Reports: Coffee, Soda - Alcohol Use Days Per Week of Alcohol Use: 1 Number of Drinks Per Day: 10 Total Drinks Per Week: 10 - Recreational Drug Use Recreational Drug Use: Yes Drug Use in Last 12 Months: Yes Recreational Drug Type: Reports: Marijuana/Hashish Other Recreational Drug Type: patient states he has not used recreational drugs for the last 4 weeks. Recreational Drug Use Frequency: Weekly Recreational Drug Last Use: yesterday - Living Situation & Occupation Living situation: Reports: with Family ED ROS GENERAL - Review of Systems Review Of Systems: See Below Constitutional: Reports: Chills HEENT: Reports: Rhinitis Respiratory: Reports: Cough Cardiovascular: Reports: No Symptoms GI/Abdominal: Reports: No Symptoms Skin: Reports: No Symptoms Neurological: Reports: No Symptoms Psychiatric: Reports: Anxiety ED EXAM, GENERAL - Physical Exam Exam: See Below Exam Limited By: No Limitations General Appearance: Alert, Mild Distress Eye Exam: Bilateral Eye: EOMI Ears: Normal External Exam Nose: Normal Inspection, Nasal Drainage (clear) Throat/Mouth: Other (poor dentation) Head: Atraumatic, Normocephalic Neck: Normal Inspection. No: Lymphadenopathy (L), Lymphadenopathy (R) Respiratory/Chest: Decreased Breath Sounds, Crackles (bases), Wheezing. No: Lungs Clear, Normal Breath Sounds, Pleural Rub Cardiovascular: Normal Peripheral Pulses, Regular Rate, Rhythm GI/Abdominal: Soft Extremities: No: Pedal Edema Neurological: Alert, Oriented, Normal Cognition Psychiatric: Normal Affect Skin Exam: Warm, Dry, Intact, Normal Color Course - Vital Signs Last Recorded V/S: Last Vital Signs Temp 98.6 F 04/16/17 05:12 Pulse 73 04/16/17 05:12 Resp 22 H 04/16/17 05:12 BP 112/88 04/16/17 05:12 Pulse Ox 97 04/16/17 05:12 - Orders/Labs/Meds Orders: Active Orders 24 hr Category Date Time Status EKG 12 Lead [EKG Documentation Completion] [RC] URGENT Care 04/16/17 04:55 Active RT Aerosol Therapy [RC] ASDIRECTED Care 04/16/17 05:21 Active Labs: Laboratory Tests 04/16/17 04/16/17 04/16/17 Range/Units 05:10 05:10 05:40 WBC 5.7 (5.0-10.0) 10^3/uL RBC 4.95 (4.6-6.2) 10^6/uL Hgb 13.4 L (14.0-18.0) g/dL Hct 41.1 (40.0-54.0) % MCV 83.0 D (80-100) fL MCH 27.1 (27.0-34.0) pg MCHC 32.6 L (33.0-35.0) g/dL Plt Count 309 D (150-450) 10^3/uL Neut % (Auto) 64.8 (42.2-75.2) % Lymph % (Auto) 18.2 L (20.5-50.1) % Concord[place] % (Auto) 14.1 H (2-8) % Eos % (Auto) 2.4 (1.0-3.0) % Baso % (Auto) 0.5 (0.0-1.0) % Sodium (135-145) mmol/L Potassium (3.6-5.0) mmol/L Chloride (101-111) mmol/L Carbon Dioxide (21.0-31.0) mmol/L Anion Gap BUN (7-18) mg/dL Creatinine (0.6-1.3) mg/dL Est Cr Clr Drug Dosing mL/min Estimated GFR (MDRD) BUN/Creatinine Ratio Glucose (74-105) mg/dL Lactic Acid (0.5-2.2) mmol/L Calcium (8.4-10.2) mg/dl Magnesium (1.8-2.5) mg/dL Total Bilirubin (0.2-1.0) mg/dL AST (10-42) IU/L ALT (10-60) IU/L Alkaline Phosphatase (42-121) IU/L CK-MB (CK-2) (0.4-4.7) ng/mL Troponin I (0.00-0.02) ng/ml B-Natriuretic Peptide (0-100) pg/ml Total Protein (6.7-8.2) g/dl Albumin (3.2-5.5) g/dl Globulin Albumin/Globulin Ratio Urine Color Dark yellow (YELLOW) Urine Appearance Clear (CLEAR) Urine pH 6.0 (5.0-9.0) Ur Specific Margie >= 1.030 (1.005-1.030) Urine Protein >=300 H (NEGATIVE) Urine Glucose (UA) Negative (NEGATIVE) Urine Ketones Trace H (NEGATIVE) Urine Occult Blood Trace-intact H (NEGATIVE) Urine Nitrite Negative (NEGATIVE) Urine Bilirubin Moderate H (NEGATIVE) Urine Urobilinogen 4.0 H (0.2-1.0) mg/dL Ur Leukocyte Esterase Negative (NEGATIVE) Urine RBC 0-5 /HPF Urine WBC 0-5 (0-5/HPF) /HPF Ur Epithelial Cells Few /HPF Urine Bacteria Moderate H (0-FEW/HPF) /HPF Hyaline Casts Moderate H /LPF Urine Mucus Moderate H /LPF Urine Opiates Screen Positive H (NEGATIVE) Ur Oxycodone Screen Positive H (NEGATIVE) Urine Methadone Screen Negative (NEGATIVE) Ur Barbiturates Screen Negative (NEGATIVE) U Tricyclic Antidepress Negative (NEGATIVE) Ur Phencyclidine Scrn Negative (NEGATIVE) Ur Amphetamine Screen Negative (NEGATIVE) U Methamphetamines Scrn Negative (NEGATIVE) Urine MDMA Screen Negative (NEGATIVE) U Benzodiazepines Scrn Positive H (NEGATIVE) Urine Cocaine Screen Negative (NEGATIVE) U Marijuana (THC) Screen Positive H (NEGATIVE) Ethyl Alcohol mg/dL 04/16/17 04/16/17 04/16/17 Range/Units 05:40 05:40 05:40 WBC (5.0-10.0) 10^3/uL RBC (4.6-6.2) 10^6/uL Hgb (14.0-18.0) g/dL Hct (40.0-54.0) % MCV (80-100) fL MCH (27.0-34.0) pg MCHC (33.0-35.0) g/dL Plt Count (150-450) 10^3/uL Neut % (Auto) (42.2-75.2) % Lymph % (Auto) (20.5-50.1) % Concordia % (Auto) (2-8) % Eos % (Auto) (1.0-3.0) % Baso % (Auto) (0.0-1.0) % Sodium 133 L (135-145) mmol/L Potassium 3.6 (3.6-5.0) mmol/L Chloride 96 L (101-111) mmol/L Carbon Dioxide 28.0 (21.0-31.0) mmol/L Anion Gap 12.6 BUN 11 (7-18) mg/dL Creatinine 0.9 (0.6-1.3) mg/dL Est Cr Clr Drug Dosing 98.19 mL/min Estimated GFR (MDRD) > 60 BUN/Creatinine Ratio 12.22 Glucose 107 H (74-105) mg/dL Lactic Acid 1.5 (0.5-2.2) mmol/L Calcium 8.4 (8.4-10.2) mg/dl Magnesium 1.7 L (1.8-2.5) mg/dL Total Bilirubin 1.8 H (0.2-1.0) mg/dL AST 32 (10-42) IU/L ALT 15 (10-60) IU/L Alkaline Phosphatase 89 (42-121) IU/L CK-MB (CK-2) 1.70 (0.4-4.7) ng/mL Troponin I 0.03 H* (0.00-0.02) ng/ml B-Natriuretic Peptide (0-100) pg/ml Total Protein 7.1 (6.7-8.2) g/dl Albumin 3.1 L (3.2-5.5) g/dl Globulin 4.0 Albumin/Globulin Ratio 0.78 Urine Color (YELLOW) Urine Appearance (CLEAR) Urine pH (5.0-9.0) Ur Specific Margie (1.005-1.030) Urine Protein (NEGATIVE) Urine Glucose (UA) (NEGATIVE) Urine Ketones (NEGATIVE) Urine Occult Blood (NEGATIVE) Urine Nitrite (NEGATIVE) Urine Bilirubin (NEGATIVE) Urine Urobilinogen (0.2-1.0) mg/dL Ur Leukocyte Esterase (NEGATIVE) Urine RBC /HPF Urine WBC (0-5/HPF) /HPF Ur Epithelial Cells /HPF Urine Bacteria (0-FEW/HPF) /HPF Hyaline Casts /LPF Urine Mucus /LPF Urine Opiates Screen (NEGATIVE) Ur Oxycodone Screen (NEGATIVE) Urine Methadone Screen (NEGATIVE) Ur Barbiturates Screen (NEGATIVE) U Tricyclic Antidepress (NEGATIVE) Ur Phencyclidine Scrn (NEGATIVE) Ur Amphetamine Screen (NEGATIVE) U Methamphetamines Scrn (NEGATIVE) Urine MDMA Screen (NEGATIVE) U Benzodiazepines Scrn (NEGATIVE) Urine Cocaine Screen (NEGATIVE) U Marijuana (THC) Screen (NEGATIVE) Ethyl Alcohol < 5 mg/dL 04/16/17 Range/Units 05:40 WBC (5.0-10.0) 10^3/uL RBC (4.6-6.2) 10^6/uL Hgb (14.0-18.0) g/dL Hct (40.0-54.0) % MCV (80-100) fL MCH (27.0-34.0) pg MCHC (33.0-35.0) g/dL Plt Count (150-450) 10^3/uL Neut % (Auto) (42.2-75.2) % Lymph % (Auto) (20.5-50.1) % Concordia % (Auto) (2-8) % Eos % (Auto) (1.0-3.0) % Baso % (Auto) (0.0-1.0) % Sodium (135-145) mmol/L Potassium (3.6-5.0) mmol/L Chloride (101-111) mmol/L Carbon Dioxide (21.0-31.0) mmol/L Anion Gap BUN (7-18) mg/dL Creatinine (0.6-1.3) mg/dL Est Cr Clr Drug Dosing mL/min Estimated GFR (MDRD) BUN/Creatinine Ratio Glucose (74-105) mg/dL Lactic Acid (0.5-2.2) mmol/L Calcium (8.4-10.2) mg/dl Magnesium (1.8-2.5) mg/dL Total Bilirubin (0.2-1.0) mg/dL AST (10-42) IU/L ALT (10-60) IU/L Alkaline Phosphatase (42-121) IU/L CK-MB (CK-2) (0.4-4.7) ng/mL Troponin I (0.00-0.02) ng/ml B-Natriuretic Peptide 3170 H (0-100) pg/ml Total Protein (6.7-8.2) g/dl Albumin (3.2-5.5) g/dl Globulin Albumin/Globulin Ratio Urine Color (YELLOW) Urine Appearance (CLEAR) Urine pH (5.0-9.0) Ur Specific Margie (1.005-1.030) Urine Protein (NEGATIVE) Urine Glucose (UA) (NEGATIVE) Urine Ketones (NEGATIVE) Urine Occult Blood (NEGATIVE) Urine Nitrite (NEGATIVE) Urine Bilirubin (NEGATIVE) Urine Urobilinogen (0.2-1.0) mg/dL Ur Leukocyte Esterase (NEGATIVE) Urine RBC /HPF Urine WBC (0-5/HPF) /HPF Ur Epithelial Cells /HPF Urine Bacteria (0-FEW/HPF) /HPF Hyaline Casts /LPF Urine Mucus /LPF Urine Opiates Screen (NEGATIVE) Ur Oxycodone Screen (NEGATIVE) Urine Methadone Screen (NEGATIVE) Ur Barbiturates Screen (NEGATIVE) U Tricyclic Antidepress (NEGATIVE) Ur Phencyclidine Scrn (NEGATIVE) Ur Amphetamine Screen (NEGATIVE) U Methamphetamines Scrn (NEGATIVE) Urine MDMA Screen (NEGATIVE) U Benzodiazepines Scrn (NEGATIVE) Urine Cocaine Screen (NEGATIVE) U Marijuana (THC) Screen (NEGATIVE) Ethyl Alcohol mg/dL Meds: Medications Discontinued Medications Generic Name Dose Route Start Last Admin Trade Name Freq PRN Reason Stop Dose Admin Albuterol 2.5 mg 04/16/17 05:21 04/16/17 05:28 Proventil Neb Soln NEB 04/16/17 05:22 2.5 mg ONETIME ONE Administration Furosemide 40 mg 04/16/17 05:40 04/16/17 05:46 Lasix IVPUSH 04/16/17 05:41 40 mg NOW ONE Administration Lorazepam 1 mg 04/16/17 06:20 04/16/17 06:28 Ativan IVPUSH 04/16/17 06:21 1 mg ONETIME ONE Administration - Radiology Interpretation Free Text/Narrative:: CXRMildly prominent cardiac silhouette and central pulmonary vasculatre is some haziness present in lower hemithoraces suggest pulmonary edema. Superimposing infiltrates cannot be excluded - Re-Assessments/Exams Free Text/Narrative Re-Assessment/Exam: 04/16/17 06:59 Dr Summers accepting patient for further evaluation and management of CHF Departure - Departure Time of Disposition: 07:07 Disposition: DC/Tfer to Acute Hospital 02 Condition: Fair Clinical Impression: Polysubstance abuse, Shortness of breath CHF (congestive heart failure) Qualifiers: Congestive heart failure type: unspecified congestive heart failure type Congestive heart failure chronicity: acute Qualified Code(s): I50.9 - Heart failure, unspecified - Discharge Information Forms: ED Department Discharge - My Orders Last 24 Hours: My Active Orders 04/16/17 04:55 EKG 12 Lead [EKG Documentation Completion] [RC] URGENT 04/16/17 05:21 RT Aerosol Therapy [RC] ASDIRECTED - Assessment/Plan Last 24 Hours: My Active Orders 04/16/17 04:55 EKG 12 Lead [EKG Documentation Completion] [RC] URGENT 04/16/17 05:21 RT Aerosol Therapy [RC] ASDIRECTED
[2017-04-16] MEDS ORDERED: Albuterol 0.083% 2.5 MG/3 ML Neb Soln NEB ONE (05:21)
[2017-04-16] MEDS ORDERED: Furosemide 40 MG/4 ML VIAL IVPUSH ONE (05:40)
[2017-04-16 06:16] LABS: ANION GAP 12.6; CHLORIDE,CL 96 mmol/L (101-111); SODIUM,NA 133 mmol/L (135-145)
[2017-04-16] MEDS ORDERED: LORazepam 2 MG/ML Syringe IVPUSH ONE (06:20)
[2017-04-16] MEDS ORDERED: Ondansetron 4 MG Tab.DIS PO PRN (10:16)
[2017-04-16] MEDS: Nicotine 14 MG/24 Hr Patch TRDERM SCH (10:39)
[2017-04-16] MEDS: Enoxaparin 40 MG/0.4 ML Syringe SUBCUT SCH (11:00)
[2017-04-16] MEDS: Omeprazole 20 MG Cap.CR PO SCH (14:02)
[2017-04-16] MEDS: Furosemide 40 MG/4 ML VIAL IVPUSH SCH (14:03)
[2017-04-16] MEDS: LORazepam 1 MG Tab PO PRN ×2 (14:03→20:45)
[2017-04-16] MEDS: Albuterol/Ipratropium 3.0-0.5 MG/3 ML Neb Soln NEB PRN (16:37)
[2017-04-16] MEDS: Check Patch TRDERM SCH (20:44)
[2017-04-16] MEDS: Carvedilol 6.25 MG Tab PO SCH (20:44)
[2017-04-16] MEDS: Acetaminophen 325 MG Tab PO PRN (20:48)
[2017-04-17] MEDS: LORazepam 1 MG Tab PO PRN ×3 (04:00→21:33)
[2017-04-17] MEDS: Omeprazole 20 MG Cap.CR PO SCH (06:17)
[2017-04-17 06:59] LABS: ANION GAP 10.5; CHLORIDE,CL 103 mmol/L (101-111); SODIUM,NA 139 mmol/L (135-145)
--- NOTE | 2017-04-17 09:03 | HP ---
CHIEF COMPLAINT: Shortness of breath. HISTORY OF PRESENT ILLNESS: Mr. Jonathan Karimi is a 52-year-old male with medical history significant for hypertension; hyperlipidemia; nonischemic cardiomyopathy with decreased ejection fraction to 25%, status post AICD placed; chronic alcohol use; chronic methamphetamine use; chronic marijuana use; chronic tobacco use; history of noncompliance with medical treatment, presented to the ER today with complaints of increasing shortness of breath and was noted to be in [id number] congestive heart failure exacerbation requiring admission to the hospital. At this time, the patient claims that he has been feeling short of breath for the last two days which has been progressively getting worse. He grades the shortness of breath as 6/10 in intensity which gets aggravated on ambulation, relieved with rest, associated with mild chest discomfort to anterior chest, nonradiating in nature. No clear aggravating factors. No clear relieving factors. Also, complains of having cough with sputum which is whitish in color. Complains of having mild chills. No fevers. Denies any abdominal pain. No nausea. No vomiting. No diarrhea. The patient denied any history of chest pains on exertion but has dyspnea on exertion. No history of orthopnea or paroxysmal nocturnal dyspnea. The patient denied any history of hematemesis, hematochezia, or melenic stools. Normal bowel and bladder habits, otherwise. REVIEW OF SYSTEMS: A complete review of systems including skin; ear, nose, and throat; cardiovascular system; respiratory system; gastrointestinal system; genitourinary system; hematology; oncology; neurology; allergy; immunology; constitutional were all evaluated. PAST MEDICAL HISTORY: Significant for: 1. Hypertension. 2. Hyperlipidemia. 3. Nonischemic cardiomyopathy, status post AICD placed. 4. Chronic history of substance use including methamphetamine and marijuana. 5. Chronic tobacco use. 6. Chronic alcohol use. 7. History of noncompliance with medical treatment. PAST SURGICAL HISTORY: Significant for lipoma resection and history of colon surgery. FAMILY HISTORY: Significant for: 1. Diabetes and heart disease in his father, requiring pacemaker placement. 2. Heart disease and diabetes in his paternal grandmother. SOCIAL HISTORY: The patient currently smokes but says that he has cut down on the smoking. He claims that he had quit drinking alcohol and using drugs including marijuana and methamphetamine four weeks back. ALLERGIES: Allergic history; no known drug allergies. MEDICATIONS: Home medications include: 1. Spironolactone 25 mg daily. 2. Zoloft 50 mg daily. 3. Omeprazole 20 mg daily. 4. Lisinopril 2.5 mg daily. 5. Lasix 40 mg daily. 6. Coreg 6.25 mg twice a day. PHYSICAL EXAMINATION: Vital Signs: Temperature of 98.6, pulse of 73, blood pressure of 112/88, respiratory rate of 22, and saturating at 97% on room air. General Appearance: The patient is well oriented to time, place, and person. Follows commands spontaneously. Cardiovascular System: S1 and S2 heard with normal intensity. Mild S3 gallop. Respiratory System: Bilateral crepitations noted. Mild wheezing noted at the bases. Abdomen: Soft. Bowel sounds positive. Nontender. No rigidity. No guarding. No rebound tenderness. Extremities: No edema in bilateral lower extremities. Neurology: No gross focal neurological deficit. Head and Neck: Mild elevated JVD noted. LABORATORY DATA: 1. WBC 5.7, hemoglobin 13.4, hematocrit 41.1, and platelet count 309. Sodium 133, potassium 3.6, chloride 96, bicarb 28, BUN 11, creatinine 0.9, glucose 107, lactic acid 1.5, magnesium 1.7, troponin 0.03, BNP 3170, albumin 3.1. 2. Urinalysis negative for leukocyte esterase, negative for nitrites, greater than 300 protein in the urine along with moderate bilirubin. Urine toxicology screen positive for opiates, oxycodone, benzodiazepine, and marijuana. Ethyl alcohol less than 5. ASSESSMENT: 1. [id number] congestive heart failure, secondary to systolic dysfunction with recent echocardiogram showing ejection fraction less than 25%. 2. Hypertension. 3. Hyperlipidemia. 4. Tobacco use. 5. Nonischemic cardiomyopathy, status post AICD placed. 6. Hypomagnesemia. 7. Hyponatremia. PLAN: 1. [id number] congestive heart failure, secondary to systolic dysfunction. The patient's recent echocardiogram from March 2017 showed evidence of decreased ejection fraction to 25%. The patient noted to have elevated BNP and also crackles to the lung exam. The patient will be admitted to the hospital. We will have him on Telemetry Unit. We will have him on IV Lasix 40 mg q.12 hourly. We will closely monitor input, output, and daily weights, and switch him to oral Lasix once he is more stable. 2. Hypertension. The patient's blood pressure seems to be in acceptable range. Try to avoid any hypotensive episodes. Continue with current antihypertensive medications. 3. Hyperlipidemia. Continue with statin. We will get a fasting lipid panel in the a.m. 4. Substance use. The patient claims that he had quit using methamphetamine and marijuana, but his urine toxicology screen is positive for marijuana. The patient is educated about ill effects of smoking tobacco on his health and advised him to quit smoking which he understands and verbalized the same. 5. DVT prophylaxis. We will have him on Lovenox for DVT prophylaxis. 6. Code status. The patient wants to be full code. 7. Discussed with Dr. Abdalla, ER physician, regarding the plan of care. Reviewed the labs and medications. Reviewed the old charts. [facility] /[id number]
[2017-04-17] MEDS: Sertraline 50 MG Tab PO SCH (10:21)
[2017-04-17] MEDS: Lisinopril 5 MG Tab PO SCH (10:21)
[2017-04-17] MEDS: Enoxaparin 40 MG/0.4 ML Syringe SUBCUT SCH (10:22)
[2017-04-17] MEDS: Spironolactone 25 MG Tab PO SCH (10:22)
[2017-04-17] MEDS: Nicotine 14 MG/24 Hr Patch TRDERM SCH (10:24)
[2017-04-17] MEDS: Carvedilol 6.25 MG Tab PO SCH ×2 (10:30→17:00)
[2017-04-17] MEDS: Sodium Chloride 0.9% 10 ML Syringe FLUSH PRN (10:31)
[2017-04-17] MEDS: Furosemide 40 MG/4 ML VIAL IVPUSH SCH ×2 (10:31→16:57)
--- NOTE | 2017-04-17 10:44 | EKG ---
04/16/2017- MANNIE MEREDITH - FINDINGS: A 12-lead EKG shows normal sinus rhythm with nonspecific ST-T wave changes noted on leads aVL and aVF. IVC in place. [facility] /[id number]
[2017-04-17] MEDS: Potassium Chloride 10 MEQ Tab.ER PO SCH ×3 (11:20→17:37)
[2017-04-17] MEDS: Acetaminophen 325 MG Tab PO PRN ×2 (11:21→21:32)
[2017-04-17] MEDS ORDERED: Furosemide 40 MG Tab PO SCH (14:00)
--- NOTE | 2017-04-17 15:51 | PN ---
DATE: 04/17/2017 HISTORY OF PRESENT ILLNESS: Mr. Jonathan Karimi is a 52-year-old male with medical history significant for hypertension, hyperlipidemia, nonischemic cardiomyopathy with decreased ejection fraction to 25%, status post AICD placed; chronic alcohol use, methamphetamine use, marijuana use and tobacco use, presented to the hospital with increasing shortness of breath and was noted to be in acute on chronic congestive heart failure secondary to systolic dysfunction. For the last 24 hours, the patient was continued on IV Lasix. Continues to have mild shortness of breath aggravated on exertion, relieved with rest. Complains of mild chest discomfort. Denied any chest pain. No abdominal pain. No nausea. No vomiting. No diarrhea. Complains of having some restlessness and anxiety, requiring antianxiety medications. REVIEW OF SYSTEMS: Cardiovascular, respiratory, gastrointestinal, neurology, constitutional were all evaluated. PHYSICAL EXAMINATION: Vital Signs: Temperature of 97.9, pulse of 67, blood pressure 102/80, respiratory rate 16, saturating at 100% on room air. General Appearance: The patient is well oriented to time, place, and person. Follows commands spontaneously. Cardiovascular System: S1, S2 heard with normal intensity. No gallops. Respiratory System: Bilateral crepitations at the bases. No wheeze. Abdomen: Soft. Bowel sounds positive. Nontender. No rigidity. No guarding. No rebound tenderness. Extremities: No edema in bilateral lower extremities. MEDICATIONS: Reviewed. Continue the same. LABORATORY DATA: Sodium 139, potassium 2.5, chloride 103, bicarb 28, BUN 13, creatinine 0.7. ASSESSMENT: 1. Acute on chronic renal failure secondary to systolic dysfunction with decreased ejection fraction to 25%. 2. Hypertension. 3. Hyperlipidemia. 4. Chronic substance abuse. 5. Chronic tobacco use. 6. Nonischemic cardiomyopathy, status post AICD placed. PLAN: 1. Acute on chronic congestive heart failure secondary to systolic dysfunction. The patient was treated with IV Lasix. He responded well to the IV Lasix. We will switch him to oral Lasix at this time and we will closely follow. We will get a BNP in a.m. We will closely monitor his input, output, and daily weights. 2. Hypertension. The patient's blood pressure seems to be in acceptable range. We will try to avoid any hypotensive episodes. 3. Substance abuse. The patient was educated about the importance of not using any methamphetamine or marijuana which is injuring his health, which he understands and verbalized the same, and claims that he had quit taking marijuana, methamphetamine in the last 4 weeks which he is congratulated. 4. Tobacco use. The patient is educated about tobacco cessation and strongly encouraged him to quit smoking. Prescribed nicotine transdermal patch. 5. Deep vein thrombosis prophylaxis. Continue Lovenox for deep vein thrombosis prophylaxis. 6. Hypokalemia. The patient is noted to have severe hypokalemia. We will replace with 40 mEq of potassium chloride 3 times a day. Recheck a potassium later this evening and dose adjust potassium to normalize the potassium level. [facility] /[id number]
[2017-04-17] MEDS: Check Patch TRDERM SCH (20:40)
[2017-04-17] MEDS: Albuterol/Ipratropium 3.0-0.5 MG/3 ML Neb Soln NEB PRN (22:56)
[2017-04-18] MEDS: Acetaminophen 325 MG Tab PO PRN ×3 (03:32→21:54)
[2017-04-18] MEDS: LORazepam 1 MG Tab PO PRN ×4 (03:32→21:54)
[2017-04-18] MEDS: Omeprazole 20 MG Cap.CR PO SCH (05:56)
[2017-04-18] MEDS: Enoxaparin 40 MG/0.4 ML Syringe SUBCUT SCH (09:15)
[2017-04-18] MEDS: Sertraline 50 MG Tab PO SCH (09:16)
[2017-04-18] MEDS: Carvedilol 6.25 MG Tab PO SCH ×2 (09:16→17:22)
[2017-04-18] MEDS: Spironolactone 25 MG Tab PO SCH (09:16)
[2017-04-18] MEDS: Sodium Chloride 0.9% 10 ML Syringe FLUSH PRN ×2 (09:17→14:19)
[2017-04-18] MEDS: Furosemide 40 MG/4 ML VIAL IVPUSH SCH ×2 (09:17→14:19)
[2017-04-18] MEDS: Potassium Chloride 10 MEQ Tab.ER PO SCH ×3 (09:17→17:22)
[2017-04-18] MEDS: Nicotine 14 MG/24 Hr Patch TRDERM SCH ×2 (09:18→16:14)
[2017-04-18] MEDS: Lisinopril 5 MG Tab PO SCH (09:19)
[2017-04-18 12:01] LABS: CHLORIDE,CL 104 mmol/L (101-111); SODIUM,NA 141 mmol/L (135-145)
--- NOTE | 2017-04-18 15:16 | PN ---
DATE: 04/18/2017 HISTORY OF PRESENT ILLNESS: Mr. Jonathan Karimi is a 52-year-old male, with a medical history significant for hypertension, hyperlipidemia, nonischemic cardiomyopathy with decreased ejection fraction of 25%, status post AICD placed, admitted with acute on chronic congestive heart failure secondary to systolic dysfunction. For the last 24 hours, the patient continued to have dyspnea on exertion. He grades the shortness of breath as 3 to 4/10 in intensity, aggravated on exertion, relieved with rest, not associated with any chest pains. Denies any nausea or vomiting. No complaints of diarrhea. No complaints of abdominal pain. REVIEW OF SYSTEMS: Cardiovascular, respiratory, gastrointestinal, neurology, constitutional were all evaluated. PHYSICAL EXAMINATION: Vital Signs: Temperature of 98.5, pulse of 88, blood pressure 105/77, respiratory rate 28, saturating at 100% on room air. General Appearance: The patient is well oriented to time, place, and person. Follows commands spontaneously. Cardiovascular System: S1, S2 heard with normal intensity. No gallops. Respiratory System: Bilateral crepitations, more so at the bases. Mild wheeze. Abdomen: Soft. Bowel sounds positive. Nontender. No rigidity. Extremities: No edema in bilateral lower extremities. LABORATORY DATA: Reviewed. Sodium 141, potassium 4, chloride 104, bicarb 31, BUN 12, creatinine 0.7. BNP 4420. Troponin 0.03. MEDICATIONS: Reviewed. Continue with: 1. Tylenol 650 every 4 hours as needed for pain. 2. DuoNeb 3 mL nebulizer every 4 hours as needed for shortness of breath. 3. Coreg 6.25 mg twice a day. 4. Lovenox 40 mg subcutaneous daily. 5. Lasix 40 mg IV q.12 hours. 6. Lisinopril 2.5 mg daily. 7. Ativan 1 mg every 6 hours as needed for anxiety. 8. Nicotine transdermal patch. 9. Omeprazole 20 mg daily. 10.Potassium chloride 40 mEq 3 times a day. 11.Spironolactone 25 mg daily. ASSESSMENT: 1. Acute on chronic congestive heart failure secondary to systolic dysfunction. 2. Hypertension. 3. Hyperlipidemia. 4. Chronic tobacco use. 5. Chronic substance abuse. 6. Nonischemic cardiomyopathy with status post AICD placed. 7. Systolic dysfunction with ejection fraction of 25%. PLAN: 1. Acute on chronic congestive heart failure secondary to systolic dysfunction. Recent echocardiogram showed evidence of decreased ejection fraction to 25%. He is currently on Lasix 40 q.12 hourly. He is noted to have negative bilaterally, but his BNP is elevated at this time. We will continue with IV Lasix. The patient also noted to have mild wheezing, we will continue with nebulizers as needed. 2. Hypertension, well controlled. Continue with current antihypertensive medications. 3. Chronic tobacco use. The patient is educated about the importance of tobacco cessation. We will continue with nicotine transdermal patch. 4. Deep vein thrombosis prophylaxis. We will continue with Lovenox for deep vein thrombosis prophylaxis. [facility] /[id number]
[2017-04-18] MEDS: Albuterol/Ipratropium 3.0-0.5 MG/3 ML Neb Soln NEB PRN (15:52)
[2017-04-18] MEDS: Albuterol/Ipratropium 3.0-0.5 MG/3 ML Neb Soln NEB SCH (17:15)
[2017-04-18] MEDS: Check Patch TRDERM SCH (20:40)
[2017-04-19] MEDS: Albuterol/Ipratropium 3.0-0.5 MG/3 ML Neb Soln NEB SCH ×4 (01:02→17:50)
[2017-04-19] MEDS: LORazepam 1 MG Tab PO PRN ×4 (04:46→23:21)
[2017-04-19] MEDS: Omeprazole 20 MG Cap.CR PO SCH ×2 (04:46→06:00)
[2017-04-19 07:10] LABS: ANION GAP 12.1; CHLORIDE,CL 104 mmol/L (101-111); SODIUM,NA 140 mmol/L (135-145)
[2017-04-19] MEDS: Carvedilol 6.25 MG Tab PO SCH (08:57)
[2017-04-19] MEDS: Potassium Chloride 10 MEQ Tab.ER PO SCH ×2 (08:58→18:28)
[2017-04-19] MEDS: Lisinopril 5 MG Tab PO SCH (08:59)
[2017-04-19] MEDS: Spironolactone 25 MG Tab PO SCH (08:59)
[2017-04-19] MEDS: Nicotine 14 MG/24 Hr Patch TRDERM SCH (09:00)
[2017-04-19] MEDS: Sertraline 50 MG Tab PO SCH (09:00)
[2017-04-19] MEDS: Furosemide 40 MG/4 ML VIAL IVPUSH SCH (09:01)
[2017-04-19] MEDS: Sodium Chloride 0.9% 10 ML Syringe FLUSH PRN (09:01)
[2017-04-19] MEDS: Enoxaparin 40 MG/0.4 ML Syringe SUBCUT SCH (09:02)
[2017-04-19] MEDS: Calcium Carbonate 500 MG Tab.Chew PO PRN (11:15)
[2017-04-19] MEDS: Acetaminophen 325 MG Tab PO PRN ×2 (11:15→23:20)
[2017-04-19] MEDS: Carvedilol 3.125 MG Tab PO SCH (18:29)
[2017-04-19] MEDS: Check Patch TRDERM SCH (20:38)
[2017-04-19] MEDS: Albuterol/Ipratropium 3.0-0.5 MG/3 ML Neb Soln NEB PRN (23:06)
[2017-04-20] MEDS: Calcium Carbonate 500 MG Tab.Chew PO PRN (00:52)
[2017-04-20] MEDS: Albuterol/Ipratropium 3.0-0.5 MG/3 ML Neb Soln NEB SCH ×3 (00:53→13:09)
[2017-04-20] MEDS: Omeprazole 20 MG Cap.CR PO SCH (05:41)
[2017-04-20] MEDS: LORazepam 1 MG Tab PO PRN (05:41)
--- NOTE | 2017-04-20 07:28 | PN ---
DATE: 04/19/2017 SUBJECTIVE: Mr. Sachi Castillo is a 52-year-old male with medical history significant for hypertension, hyperlipidemia, coronary artery disease, nonischemic cardiomyopathy with decreased ejection fraction to 25%, status post AICD placed, admitted to the hospital with [id number] congestive heart failure secondary to systolic dysfunction. For the last 24 hours, the patient continues to have shortness of breath, aggravated on exertion, relieved with rest, 2-3/10 in intensity. Denies any chest pain. No abdominal pain. No nausea. No vomiting. No diarrhea. REVIEW OF SYSTEMS: Cardiovascular, respiratory, gastrointestinal, neurology, constitutional were all evaluated. PHYSICAL EXAMINATION: Vital Signs: Temperature of 96, blood pressure of 98/72, respiratory rate of 24, saturating at 94% on room air. General Appearance: The patient is well oriented to time, place, and person. Follows commands spontaneously. Cardiovascular System: S1 and S2 heard with normal intensity. No gallops. Respiratory System: Bilateral wheeze noted. Abdomen: Soft. Bowel sounds positive. Nontender. No rigidity. Extremities: No edema in bilateral lower extremities. MEDICATIONS: Reviewed. Continue with: 1. Tylenol 650 every 4 hours as needed for pain. 2. DuoNeb every 4 hours as needed, q.6 hours schedule. 3. Tums 500 mg every 4 hours as needed for digestion. 4. Coreg changed to 3.125 mg twice a day. 5. Lovenox 40 mg subcutaneous daily. 6. Lasix 40 mg IV q.12 hourly. 7. Lisinopril 2.5 mg daily. 8. Lorazepam 1 mg oral every 6 hours as needed for anxiety. 9. Nicotine transdermal patch. 10.Omeprazole 20 mg daily. 11.Potassium chloride 20 mEq twice a day. 12.Spironolactone 25 mg daily. LABORATORY DATA: Sodium 140, potassium 4.1, chloride 104, bicarb 28, BUN 14, creatinine 0.8, glucose 107. ASSESSMENT: 1. Uipnn-om-plqxdwa congestive heart failure secondary to systolic dysfunction. 2. Hypotensive episodes. 3. Hypokalemia, resolved. 4. Hypertension. 5. Hyperlipidemia. 6. Nonischemic cardiomyopathy, status post AICD placed. 7. Systolic dysfunction with decreased ejection fraction to 25%. PLAN: 1. Dgkcn-mh-eulyphg congestive heart failure: The patient is currently on Lasix 40 mg IV q.12 hourly. The patient continues to have mild wheeze. Continue with IV Lasix for now. Try to maintain euvolemic status. The patient is noted to have a low blood pressure. 2. Hypertension: The patient noted to have low blood pressure. We will decrease the Coreg to 3.125 mg twice a day. We will possibly change the Lasix to 40 mg once a day to avoid any further hypotensive episodes. 3. Nonischemic cardiomyopathy: Remains stable. The patient denies any ongoing chest pains. 4. We will have the patient on fluid restriction to 1200 mL daily. [facility] /[id number]
[2017-04-20] MEDS: Enoxaparin 40 MG/0.4 ML Syringe SUBCUT SCH (08:19)
[2017-04-20] MEDS: Potassium Chloride 10 MEQ Tab.ER PO SCH (08:19)
[2017-04-20] MEDS: Carvedilol 3.125 MG Tab PO SCH (08:20)
[2017-04-20] MEDS: Spironolactone 25 MG Tab PO SCH (08:20)
[2017-04-20] MEDS: Lisinopril 5 MG Tab PO SCH (08:21)
[2017-04-20] MEDS: Nicotine 14 MG/24 Hr Patch TRDERM SCH (08:21)
[2017-04-20] MEDS: Sertraline 50 MG Tab PO SCH (08:21)
[2017-04-20] MEDS ORDERED: Furosemide 40 MG/4 ML VIAL IVPUSH SCH (09:00)
[2017-04-20 11:43] VITALS: BP 97/68
--- NOTE | 2017-04-20 12:54 | PCM.DCSUM1 ---
Discharge Summary - Hospital Course Free Text/Narrative:: 52-year-old the male with the past medical history including but not limited to hyperlipidemia, hypertension, cardiomyopathy, ejection fraction of 25%, status post AICD, chronic alcohol use, chronic methamphetamine and marijuana use, chronic tobacco use who is non-compliant with his medical treatment presented to the emergency room with increasing shortness of breath and was having acute on chronic congestive heart failure. Patient stated that he ran out of his medications for a while and has not been taking any medications. Patient was started on IV Lasix 40 mg IV every 12 hours and then changed to once a day. His blood pressure was on the low range so his Coreg was decreased from 6.25 milligrams to 3.125 mg twice a day. Today patient stated that he is back to his baseline. He said his shortness breath is only minimal and only with exertion. He denies chest pain, cough, nausea, vomiting, fever, chills,, abdominal pain, urinary symptoms, unilateral weakness/numbness/tingling, lower extremities edema , any other symptoms or concerns. Patient sodium, potassium, creatinine, blood glucoses were within normal range on his labs from yesterday. His BNP was as high as 4420.Patient feels ready to be discharged home. He was discharged home on home medications except changing Coreg to 3.125 mg twice a day and increasing Lasix to 40 mg by mouth twice a day and adding potassium chloride 20 mEq by mouth daily. - Discharge Data Discharge Date: 04/20/17 Discharge Disposition: Home, Self-Care 01 Condition: Good - Discharge Diagnosis/Problem(s) (1) CHF (congestive heart failure) SNOMED Code(s): 84486908 ICD Code: I50.9 - HEART FAILURE, UNSPECIFIED Status: Chronic Current Visit: Yes Qualifiers: Congestive heart failure type: unspecified congestive heart failure type Congestive heart failure chronicity: acute Qualified Code(s): I50.9 - Heart failure, unspecified (2) Polysubstance abuse SNOMED Code(s): 953588799 ICD Code: F19.10 - OTHER PSYCHOACTIVE SUBSTANCE ABUSE, UNCOMPLICATED Status : Chronic Current Visit: Yes (3) Cardiac LV ejection fraction 21-40% SNOMED Code(s): 783848820 ICD Code: R94.30 - ABNORMAL RESULT OF CARDIOVASCULAR FUNCTION STUDY, UNSP Status: Chronic Priority: High Current Visit: No - Patient Instructions Diet: Heart Healthy Diet, Fluid Restriction (1500 ml per 24 hours) Showering/Bathing: May Shower Notify Provider of: Fever, Nausea and/or Vomiting - Discharge Plan Prescriptions/Med Rec: Carvedilol [Coreg] 3.125 mg PO BIDMEALS #60 tablet Furosemide [Lasix] 40 mg PO Q12H 30 Days #60 tablet Omeprazole 20 mg PO ACBREAKFAST 30 Days #30 cap.cr Potassium Chloride [Klor-Con 10] 20 meq PO DAILY #30 tab.er Sertraline [Zoloft] 50 mg PO DAILY 30 Days #30 tablet Spironolactone [Aldactone] 25 mg PO DAILY 30 Days #30 tablet Home Medications: Home Meds Carvedilol [Coreg] 6.25 mg PO BIDMEALS 10/18/15 [History] Spironolactone [Aldactone] 25 mg PO DAILY 10/18/15 [History] Omeprazole 20 mg PO ACBREAKFAST #30 cap.cr 12/10/16 [Rx] Sertraline [Zoloft] 50 mg PO DAILY 01/26/17 [History] Carvedilol [Coreg] 3.125 mg PO BIDMEALS #60 tablet 04/20/17 [Rx] Furosemide [Lasix] 40 mg PO Q12H 30 Days #60 tablet 04/20/17 [Rx] Lisinopril 2.5 mg PO DAILY #30 04/20/17 [Rx] Omeprazole 20 mg PO ACBREAKFAST 30 Days #30 cap.cr 04/20/17 [Rx] Potassium Chloride [Klor-Con 10] 20 meq PO DAILY #30 tab.er 04/20/17 [Rx] Sertraline [Zoloft] 50 mg PO DAILY 30 Days #30 tablet 04/20/17 [Rx] Spironolactone [Aldactone] 25 mg PO DAILY 30 Days #30 tablet 04/20/17 [Rx] Forms: ED Department Discharge Referrals: Roger Waters MD [Primary Care Provider] - 04/22/17 - General Info Date of Service: 04/20/17 Admission Dx/Problem (Free Text: Acute on chronic diastolic congestive heart failure - Review of Systems General: Reports: Malaise - Patient Data Vitals - Most Recent: Last Vital Signs Temp 36.6 C 04/20/17 11:00 Pulse 87 04/20/17 11:00 Resp 20 04/20/17 11:00 BP 97/68 04/20/17 11:00 Pulse Ox 92 L 04/20/17 11:00 Weight - Most Recent: 76.566 kg I&O - Last 24 hours: Intake & Output 04/19/17 04/20/17 04/20/17 22:59 06:59 14:59 Intake Total 1000 525 Output Total 1400 Balance -400 525 Med Orders - Current: Current Medications Acetaminophen (Tylenol) 650 mg PO Q4H PRN PRN Reason: Pain (Mild 1-3)/fever Last Admin: 04/19/17 23:20 Dose: 650 mg Albuterol/Ipratropium (Duoneb 3.0-0.5 Mg/3 Ml) 3 ml NEB Q4H PRN PRN Reason: shortness of breath/wheezing Last Admin: 04/19/17 23:06 Dose: 3 ml Albuterol/Ipratropium (Duoneb 3.0-0.5 Mg/3 Ml) 3 ml NEB Q6HRRT [facility] Last Admin: 04/20/17 08:03 Dose: 3 ml Calcium Carbonate/Glycine (Tums) 500 mg PO Q4H PRN PRN Reason: Indigestion Last Admin: 04/20/17 00:52 Dose: 500 mg Carvedilol (Coreg) 3.125 mg PO BIDMEALS [facility] Last Admin: 04/20/17 08:20 Dose: 3.125 mg Enoxaparin Sodium (Lovenox) 40 mg SUBCUT DAILY [facility] Last Admin: 04/20/17 08:19 Dose: 40 mg Furosemide (Lasix) 40 mg IVPUSH DAILY [facility] Last Admin: 04/20/17 08:21 Dose: 40 mg Lisinopril (Prinivil) 2.5 mg PO DAILY [facility] Last Admin: 04/20/17 08:21 Dose: 2.5 mg Lorazepam (Ativan) 1 mg PO Q6H PRN PRN Reason: Anxiety Last Admin: 04/20/17 05:41 Dose: 1 mg Miscellaneous Information (Check Patch) 1 ea TRDERM BEDTIME [facility] Last Admin: 04/19/17 20:38 Dose: Not Given Nicotine (Habitrol) 14 mg TRDERM DAILY [facility] Last Admin: 04/20/17 08:21 Dose: Not Given Omeprazole (Omeprazole) 20 mg PO ACBREAKFAST [facility] Last Admin: 04/20/17 05:41 Dose: 20 mg Ondansetron HCl (Zofran Odt) 4 mg PO Q4H PRN PRN Reason: nausea, able to take PO Potassium Chloride (Klor-Con 10) 20 meq PO BIDMEALS [facility] Last Admin: 04/20/17 08:19 Dose: 20 meq Sertraline HCl (Zoloft) 50 mg PO DAILY [facility] Last Admin: 04/20/17 08:21 Dose: 50 mg Sodium Chloride (Saline Flush) 10 ml FLUSH ASDIRECTED PRN PRN Reason: Keep Vein Open Last Admin: 04/19/17 09:01 Dose: 10 ml Spironolactone (Aldactone) 25 mg PO DAILY [facility] Last Admin: 04/20/17 08:20 Dose: 25 mg Discontinued Medications Albuterol (Proventil Neb Soln) 2.5 mg NEB ONETIME ONE Stop: 04/16/17 05:22 Last Admin: 04/16/17 05:28 Dose: 2.5 mg Carvedilol (Coreg) 6.25 mg PO BIDMEALS [facility] Last Admin: 04/19/17 08:57 Dose: 6.25 mg Furosemide (Lasix) 40 mg IVPUSH NOW ONE Stop: 04/16/17 05:41 Last Admin: 04/16/17 05:46 Dose: 40 mg Furosemide (Lasix) 40 mg IVPUSH BIDDIURETIC [facility] Last Admin: 04/17/17 10:31 Dose: 40 mg Furosemide (Lasix) 40 mg PO BIDDIURETIC [facility] Last Admin: 04/17/17 16:54 Dose: Not Given Furosemide (Lasix) 40 mg IVPUSH BIDDIURETIC [facility] Last Admin: 04/19/17 09:01 Dose: 40 mg Lorazepam (Ativan) 1 mg IVPUSH ONETIME ONE Stop: 04/16/17 06:21 Last Admin: 04/16/17 06:28 Dose: 1 mg Potassium Chloride (Klor-Con 10) 40 meq PO TIDMEALS [facility] Last Admin: 04/18/17 14:26 Dose: Not Given - Exam General: Reports: Alert, Oriented, Cooperative. Denies: No Acute Distress, Mild Distress, Moderate Distress, Severe Distress, Sedated, Lethargic, Obtunded HEENT: Reports: Pupils Equal, Pupils Reactive, EOMI, Mucous Membr. Moist/[place] Neck: Reports: Supple, Trachea Midline, No JVD Lungs: Reports: Normal Respiratory Effort, Rales (Mildly in bases). Denies: Decreased Breath Sounds, Crackles, Rhonchi, Rub, Stridor, Wheezing Cardiovascular: Reports: Regular Rate, Regular Rhythm GI/Abdominal Exam: Normal Bowel Sounds, Soft, Non-Tender, No Organomegaly, No Distention, No Abnormal Bruit, No Mass (Male) Exam: Deferred Rectal (Males) Exam: Deferred Back Exam: Reports: Normal Inspection, Full Range of Motion. Denies: CVA Tenderness (L), CVA Tenderness (R) Extremities: Normal Inspection, Normal Range of Motion, Non-Tender, No Pedal Edema, Normal Capillary Refill Skin: Reports: Warm, Dry, Intact Neurological: Reports: No New Focal Deficit Psy/Mental Status: Reports: Alert, Normal Affect, Normal Mood. Denies: Agitated , Suicidal Ideation, Homicidal Ideation, Hallucinations, Withdrawal Symptoms *Q Meaningful Use (DIS) - VTE *Q VTE Criteria *Q: - Stroke *Q Stroke Criteria *Q: - AMI *Q AMI Criteria *Q:
== END 2017-04-20 13:48 | disposition home or self-care (01) | DRG 292 ==
LOC: DL.ED 05:05 → UNDOADMIN 07:07 → DL.MS 07:07
PROVIDERS: ADMIT Internal Medicine; ATTEND Internal Medicine
DX: I11.0 Hypertensive heart disease with heart failure (principal); E87.1 Hypo-osmolality and hyponatremia; I50.23 Acute on chronic systolic (congestive) heart failure; E83.42 Hypomagnesemia; E87.6 Hypokalemia; I95.9 Hypotension, unspecified; R94.30 Abnormal result of cardiovascular function study, unspecified; E78.5 Hyperlipidemia, unspecified; F17.200 Nicotine dependence, unspecified, uncomplicated; I42.8 Other cardiomyopathies; Z95.810 Presence of automatic (implantable) cardiac defibrillator; F15.10 Other stimulant abuse, uncomplicated; F12.90 Cannabis use, unspecified, uncomplicated; Z91.19 Patient's noncompliance with other medical treatment and regimen; Z79.899 Other long term (current) drug therapy
CPT/HCPCS: 36415; 71045; 80048; 80053; 80305; 81001; 82553; 82962; 83605; 83735; 83880; 84100; 84132; 84484; 85025; 87804; 93005; 94640; 96374; 96375; 99285; A9270-GY; G0480; J1650; J1940; J2060; J7050; J7620-GY

== ENCOUNTER 2017-04-26 23:12 | Emergency (ER) | payer MEDICAID, OTHER ==
[2017-04-26 23:18] VITALS: BP 103/69
--- NOTE | 2017-04-26 23:21 | EDM.PDOC ---
ED HPI GENERAL MEDICAL PROBLEM - General Stated Complaint: IN BY AMBULANCE Time Seen by Provider: 04/26/17 23:15 Source of Information: Reports: Patient History Limitations: Reports: No Limitations - History of Present Illness INITIAL COMMENTS - FREE TEXT/NARRATIVE: ED with c/o left abdominal pain starting last evening, poor sleep last night and coughing. Tonight c/o c/o abdomianl and chest pain. Patient pointing left upper abdomen . Also c/o of cough. States he has been compliant with medications. Smoker 2-3 cigarettes daily down from one pack. Well known to facility with CHF, htn, substance abuse. Recent hospitalization 04/16/17 for CHF stabilization. Left Lower Abdominal Pain Score (Numeric/FACES): 7 - Related Data Allergies Allergy/AdvReac Type Severity Reaction Status Date / Time No Known Allergies Allergy Verified 04/26/17 23:18 Home Meds: Home Meds Carvedilol [Coreg] 6.25 mg PO BIDMEALS 10/18/15 [History] Spironolactone [Aldactone] 25 mg PO DAILY 10/18/15 [History] Omeprazole 20 mg PO ACBREAKFAST #30 cap.cr 12/10/16 [Rx] Sertraline [Zoloft] 50 mg PO DAILY 01/26/17 [History] Carvedilol [Coreg] 3.125 mg PO BIDMEALS #60 tablet 04/20/17 [Rx] Furosemide [Lasix] 40 mg PO Q12H 30 Days #60 tablet 04/20/17 [Rx] Lisinopril 2.5 mg PO DAILY #30 04/20/17 [Rx] Omeprazole 20 mg PO ACBREAKFAST 30 Days #30 cap.cr 04/20/17 [Rx] Potassium Chloride [Klor-Con 10] 20 meq PO DAILY #30 tab.er 04/20/17 [Rx] Sertraline [Zoloft] 50 mg PO DAILY 30 Days #30 tablet 04/20/17 [Rx] Spironolactone [Aldactone] 25 mg PO DAILY 30 Days #30 tablet 04/20/17 [Rx] Past Medical History - Past Health History Medical/Surgical History: Denies Medical/Surgical History HEENT History: Reports: None Cardiovascular History: Reports: Cardiomyopathy, Heart Failure, Hypertension, Pacemaker Respiratory History: Reports: SOB Gastrointestinal History: Reports: Gastritis, GERD Genitourinary History: Reports: Other (See Below) Other Genitourinary History: liver issues r/t ETOH Musculoskeletal History: Reports: Arthritis, Other (See Below) Other Musculoskeletal History: torn left and right upper arm tendon. missed surgery 03/2017 Neurological History: Reports: None Psychiatric History: Reports: Addiction, Anxiety, Panic Attack Endocrine/Metabolic History: Reports: None Hematologic History: Reports: None Immunologic History: Reports: None Oncologic (Cancer) History: Reports: None Dermatologic History: Reports: None - Infectious Disease History Infectious Disease History: Reports: None - Past Surgical History Head Surgeries/Procedures: Reports: None Cardiovascular Surgical History: Reports: Percutaneous Transluminal Angioplasty GI Surgical History: Reports: None Male Surgical History: Reports: None Musculoskeletal Surgical History: Reports: None Social & Family History - Family History Family Medical History: Noncontributory Cardiac: Reports: Hypertension Other Cardiac Family History: Dad and paternal grandmother have hypertension. Respiratory: Reports: Asthma Other Respiratory Family Hisory: Mom and dad have asthma. Endocrine/Metabolic: Reports: Diabetes, Type I Other Endocrine/Metabolic Family History: Dad and paternal grandmother have type I diabetes. - Tobacco Use Smoking Status *Q: Current Some Day Smoker Years of Tobacco use: 10 Packs/Tins Daily: 0.5 Used Tobacco, but Quit: No Second Hand Smoke Exposure: Yes - Caffeine Use Caffeine Use: Reports: Coffee, Soda - Alcohol Use Days Per Week of Alcohol Use: 1 Number of Drinks Per Day: 10 Total Drinks Per Week: 10 - Recreational Drug Use Recreational Drug Use: Yes Drug Use in Last 12 Months: Yes Recreational Drug Type: Reports: Marijuana/Hashish, Oxycodone Other Recreational Drug Type: patient states he has not used recreational drugs for the last 4 weeks. Recreational Drug Use Frequency: Weekly Recreational Drug Last Use: few days ago - Living Situation & Occupation Living situation: Reports: with Family ED ROS GENERAL - Review of Systems Review Of Systems: ROS reveals no pertinent complaints other than HPI. ED EXAM, GENERAL - Physical Exam Exam: See Below Exam Limited By: No Limitations General Appearance: Alert, No Apparent Distress, Other (fidgity, rhythmic jaw movment, lipsmaking, ) Eye Exam: Bilateral Eye: EOMI (mild scleral icterus) Ears: Normal External Exam, Normal TMs Ear Exam: Bilateral Ear: TM normal Nose: Normal Inspection Throat/Mouth: Normal Lips Head: Atraumatic, Normocephalic Neck: Normal Inspection, Full Range of Motion. No: Lymphadenopathy (L), Lymphadenopathy (R) Respiratory/Chest: No Respiratory Distress, Crackles. No: Wheezing Cardiovascular: Normal Peripheral Pulses, Regular Rate, Rhythm, No Edema, Systolic Murmur. No: No JVD GI/Abdominal: Normal Bowel Sounds, Soft, Tender (LUQ). No: Distended, Guarding Back Exam: Normal Inspection Extremities: Normal Inspection, Normal Range of Motion Neurological: Alert, Oriented, Normal Cognition Psychiatric: Anxious Skin Exam: Warm, Dry, Intact, Jaundice Course - Vital Signs Last Recorded V/S: Last Vital Signs Temp 97.8 F 04/26/17 23:16 Pulse 92 04/26/17 23:16 Resp 18 04/26/17 23:16 BP 103/69 04/26/17 23:16 Pulse Ox 99 04/26/17 23:16 - Orders/Labs/Meds Orders: Active Orders 24 hr Category Date Time Status EKG 12 Lead [EKG Documentation Completion] [RC] URGENT Care 04/26/17 23:19 Active Labs: Laboratory Tests 04/26/17 04/26/17 04/26/17 Range/Units 23:25 23:25 23:25 WBC 9.1 (5.0-10.0) 10^3/uL RBC 4.56 L (4.6-6.2) 10^6/uL Hgb 12.3 L (14.0-18.0) g/dL Hct 37.3 L (40.0-54.0) % MCV 81.8 (80-100) fL MCH 27.0 (27.0-34.0) pg MCHC 33.0 (33.0-35.0) g/dL Plt Count 253 (150-450) 10^3/uL Neut % (Auto) 68.0 (42.2-75.2) % Lymph % (Auto) 17.0 L (20.5-50.1) % [place] % (Auto) 13.0 H (2-8) % Eos % (Auto) 1.5 (1.0-3.0) % Baso % (Auto) 0.4 (0.0-1.0) % Add Manual Diff Yes Neutrophils % (Manual) 65 (42-75) % Lymphocytes % (Manual) 18 L (20-50) % Monocytes % (Manual) 13 H (2-8) % Eosinophils % (Manual) 4 H (1-3) % Sodium 135 (135-145) mmol/L Potassium 3.2 L (3.6-5.0) mmol/L Chloride 101 (101-111) mmol/L Carbon Dioxide 27.0 (21.0-31.0) mmol/L Anion Gap 10.2 BUN 23 H (7-18) mg/dL Creatinine 0.8 (0.6-1.3) mg/dL Est Cr Clr Drug Dosing 110.47 mL/min Estimated GFR (MDRD) > 60 BUN/Creatinine Ratio 28.75 Glucose 100 (74-105) mg/dL Lactic Acid 1.2 (0.5-2.2) mmol/L Calcium 8.3 L (8.4-10.2) mg/dl Total Bilirubin 2.7 H (0.2-1.0) mg/dL AST 32 (10-42) IU/L ALT 16 (10-60) IU/L Alkaline Phosphatase 65 (42-121) IU/L Troponin I 0.03 H* (0.00-0.02) ng/ml B-Natriuretic Peptide 3670 H (0-100) pg/ml Total Protein 7.6 (6.7-8.2) g/dl Albumin 3.2 (3.2-5.5) g/dl Globulin 4.4 Albumin/Globulin Ratio 0.73 Amylase 48 (28-100) U/L Lipase 20 L (22-51) U/L Urine Color (YELLOW) Urine Appearance (CLEAR) Urine pH (5.0-9.0) Ur Specific [place] (1.005-1.030) Urine Protein (NEGATIVE) Urine Glucose (UA) (NEGATIVE) Urine Ketones (NEGATIVE) Urine Occult Blood (NEGATIVE) Urine Nitrite (NEGATIVE) Urine Bilirubin (NEGATIVE) Urine Urobilinogen (0.2-1.0) mg/dL Ur Leukocyte Esterase (NEGATIVE) Urine RBC /HPF Urine WBC (0-5/HPF) /HPF Ur Epithelial Cells /HPF Urine Bacteria (0-FEW/HPF) /HPF Urine Mucus /LPF Urine Opiates Screen (NEGATIVE) Ur Oxycodone Screen (NEGATIVE) Urine Methadone Screen (NEGATIVE) Ur Barbiturates Screen (NEGATIVE) U Tricyclic Antidepress (NEGATIVE) Ur Phencyclidine Scrn (NEGATIVE) Ur Amphetamine Screen (NEGATIVE) U Methamphetamines Scrn (NEGATIVE) Urine MDMA Screen (NEGATIVE) U Benzodiazepines Scrn (NEGATIVE) Urine Cocaine Screen (NEGATIVE) U Marijuana (THC) Screen (NEGATIVE) Ethyl Alcohol mg/dL 04/26/17 04/26/17 04/26/17 Range/Units 23:25 23:28 23:29 WBC (5.0-10.0) 10^3/uL RBC (4.6-6.2) 10^6/uL Hgb (14.0-18.0) g/dL Hct (40.0-54.0) % MCV (80-100) fL MCH (27.0-34.0) pg MCHC (33.0-35.0) g/dL Plt Count (150-450) 10^3/uL Neut % (Auto) (42.2-75.2) % Lymph % (Auto) (20.5-50.1) % [place] % (Auto) (2-8) % Eos % (Auto) (1.0-3.0) % Baso % (Auto) (0.0-1.0) % Add Manual Diff Neutrophils % (Manual) (42-75) % Lymphocytes % (Manual) (20-50) % Monocytes % (Manual) (2-8) % Eosinophils % (Manual) (1-3) % Sodium (135-145) mmol/L Potassium (3.6-5.0) mmol/L Chloride (101-111) mmol/L Carbon Dioxide (21.0-31.0) mmol/L Anion Gap BUN (7-18) mg/dL Creatinine (0.6-1.3) mg/dL Est Cr Clr Drug Dosing mL/min Estimated GFR (MDRD) BUN/Creatinine Ratio Glucose (74-105) mg/dL Lactic Acid (0.5-2.2) mmol/L Calcium (8.4-10.2) mg/dl Total Bilirubin (0.2-1.0) mg/dL AST (10-42) IU/L ALT (10-60) IU/L Alkaline Phosphatase (42-121) IU/L Troponin I (0.00-0.02) ng/ml B-Natriuretic Peptide (0-100) pg/ml Total Protein (6.7-8.2) g/dl Albumin (3.2-5.5) g/dl Globulin Albumin/Globulin Ratio Amylase (28-100) U/L Lipase (22-51) U/L Urine Color Dark yellow (YELLOW) Urine Appearance Clear (CLEAR) Urine pH 5.5 (5.0-9.0) Ur Specific [place] 1.025 (1.005-1.030) Urine Protein 100 H (NEGATIVE) Urine Glucose (UA) Negative (NEGATIVE) Urine Ketones Trace H (NEGATIVE) Urine Occult Blood Trace-intact H (NEGATIVE) Urine Nitrite Negative (NEGATIVE) Urine Bilirubin Moderate H (NEGATIVE) Urine Urobilinogen 2.0 H (0.2-1.0) mg/dL Ur Leukocyte Esterase Negative (NEGATIVE) Urine RBC 0-5 /HPF Urine WBC 0-5 (0-5/HPF) /HPF Ur Epithelial Cells Occasional /HPF Urine Bacteria Moderate H (0-FEW/HPF) /HPF Urine Mucus Moderate H /LPF Urine Opiates Screen Negative (NEGATIVE) Ur Oxycodone Screen Positive H (NEGATIVE) Urine Methadone Screen Negative (NEGATIVE) Ur Barbiturates Screen Negative (NEGATIVE) U Tricyclic Antidepress Negative (NEGATIVE) Ur Phencyclidine Scrn Negative (NEGATIVE) Ur Amphetamine Screen Positive H (NEGATIVE) U Methamphetamines Scrn Positive H (NEGATIVE) Urine MDMA Screen Negative (NEGATIVE) U Benzodiazepines Scrn Positive H (NEGATIVE) Urine Cocaine Screen Negative (NEGATIVE) U Marijuana (THC) Screen Positive H (NEGATIVE) Ethyl Alcohol < 5 mg/dL Meds: Medications Discontinued Medications Generic Name Dose Route Start Last Admin Trade Name Freq PRN Reason Stop Dose Admin Furosemide 40 mg 04/26/17 23:46 04/26/17 23:50 Lasix IVPUSH 04/26/17 23:47 40 mg NOW ONE Administration Potassium Chloride 20 meq 04/27/17 00:12 04/27/17 00:17 Klor-Con 10 PO 04/27/17 00:13 20 meq ONETIME ONE Administration - Radiology Interpretation Free Text/Narrative:: Stable cardiomegaly and mild pulmonary edema - Re-Assessments/Exams Free Text/Narrative Re-Assessment/Exam: 04/27/17 00:34 admits meth use [address] Causey consulted for admission to stabilize chronic CHF, recommend tx to Alt due to elevated bili. Dr. Jeff Bryant agreeable to admit for further eval and management Departure - Departure Time of Disposition: 00:40 Disposition: DC/Tfer to Acute Hospital 02 Condition: Fair Clinical Impression: Cardiac LV ejection fraction 21-40%, Polysubstance abuse CHF (congestive heart failure) Qualifiers: Qualified Code(s): I50.9 - Heart failure, unspecified Abdominal pain Qualifiers: Abdominal location: right upper quadrant Qualified Code(s): R10.11 - Right upper quadrant pain - Discharge Information Referrals: PCP,Unobtain [Primary Care Provider] - Forms: ED Department Discharge - My Orders Last 24 Hours: My Active Orders 04/26/17 23:19 EKG 12 Lead [EKG Documentation Completion] [RC] URGENT - Assessment/Plan Last 24 Hours: My Active Orders 04/26/17 23:19 EKG 12 Lead [EKG Documentation Completion] [RC] URGENT
[2017-04-26] MEDS ORDERED: Furosemide 40 MG/4 ML VIAL IVPUSH ONE (23:46)
[2017-04-27 00:04] LABS: ANION GAP 10.2; CHLORIDE,CL 101 mmol/L (101-111); SODIUM,NA 135 mmol/L (135-145)
[2017-04-27] MEDS ORDERED: Potassium Chloride 10 MEQ Tab.ER PO ONE (00:12)
--- NOTE | 2017-05-04 10:12 | EKG ---
04/26/2017- MANNIE MEREDITH - EKG per my reading shows sinus rhythm at the rate of 90. No specific intraventricular conduction delay. Flat lateral T-waves. [facility] /[id number]
== END 2017-04-27 00:56 ==
LOC: DL.ED 23:12
DX: I11.0 Hypertensive heart disease with heart failure (principal); I50.1 Left ventricular failure, unspecified; F19.10 Other psychoactive substance abuse, uncomplicated; R10.11 Right upper quadrant pain; F17.210 Nicotine dependence, cigarettes, uncomplicated; Z79.899 Other long term (current) drug therapy
CPT/HCPCS: 36415; 71045; 80053; 80305; 81001; 82150; 83605; 83690; 83880; 84484; 85025; 93005; 96374; 99285; A9270; G0480; J1940

== ENCOUNTER 2017-05-12 09:35 | Observation (INO) | payer MEDICAID, OTHER ==
[2017-05-12] MEDS ORDERED: Sodium Chloride 0.9% 10 ML Syringe FLUSH PRN (09:36)
--- NOTE | 2017-05-12 09:36 | EDM.PDOC ---
ED HPI GENERAL MEDICAL PROBLEM - General Chief Complaint: Chest Pain Stated Complaint: IN BY [facility] Time Seen by Provider: 05/12/17 09:36 Source of Information: Reports: Patient, EMS, Old Records, RN, RN Notes Reviewed History Limitations: Reports: No Limitations - History of Present Illness INITIAL COMMENTS - FREE TEXT/NARRATIVE: Pt arrives from home by [facility] with c/o chest pain and SOB. Pt states that he was drinking alcohol and "doing meth" all last week, but he did continue all of his regular medications. Pt states he last drank alcohol 3 days ago, and he thinks that was the last day he smoked meth as well. Pt states he feels like his lungs "have water on them again", but that he legs have "puffed up yet". He admits to orthopnea and cough. Denies fever, chills, N/ V, abd. pain, or radiating pain. Pt states that he is feeling like early withdrawals with mild shakes and tremor with nausea and anxiety. 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) Mid-Sternal Chest Pain Score (Numeric/FACES): 7 - Related Data Allergies Allergy/AdvReac Type Severity Reaction Status Date / Time No Known Allergies Allergy Verified 05/12/17 12:12 Home Meds: Home Meds Carvedilol [Coreg] 6.25 mg PO BIDMEALS 10/18/15 [History] Furosemide [Lasix] 40 mg PO Q12H 30 Days #60 tablet 04/20/17 [Rx] Lisinopril 2.5 mg PO DAILY #30 04/20/17 [Rx] Omeprazole 20 mg PO ACBREAKFAST 30 Days #30 cap.cr 04/20/17 [Rx] Potassium Chloride [Klor-Con 10] 20 meq PO DAILY #30 tab.er 04/20/17 [Rx] Sertraline [Zoloft] 50 mg PO DAILY 30 Days #30 tablet 04/20/17 [Rx] Spironolactone [Aldactone] 25 mg PO DAILY 30 Days #30 tablet 04/20/17 [Rx] Past Medical History - Past Health History Medical/Surgical History: Denies Medical/Surgical History HEENT History: Reports: None Cardiovascular History: Reports: Cardiomyopathy, Heart Failure, Hypertension, Pacemaker Respiratory History: Reports: SOB Gastrointestinal History: Reports: Gastritis, GERD Genitourinary History: Reports: Other (See Below) Other Genitourinary History: liver issues r/t ETOH Musculoskeletal History: Reports: Arthritis, Other (See Below) Other Musculoskeletal History: torn left and right upper arm tendon. missed surgery 03/2017 Neurological History: Reports: None Psychiatric History: Reports: Addiction, Anxiety, Panic Attack Endocrine/Metabolic History: Reports: None Hematologic History: Reports: None Immunologic History: Reports: None Oncologic (Cancer) History: Reports: None Dermatologic History: Reports: None - Infectious Disease History Infectious Disease History: Reports: None - Past Surgical History Head Surgeries/Procedures: Reports: None Cardiovascular Surgical History: Reports: Percutaneous Transluminal Angioplasty GI Surgical History: Reports: None Male Surgical History: Reports: None Musculoskeletal Surgical History: Reports: None Social & Family History - Family History Family Medical History: Noncontributory Cardiac: Reports: Hypertension Other Cardiac Family History: Dad and paternal grandmother have hypertension. Respiratory: Reports: Asthma Other Respiratory Family Hisory: Mom and dad have asthma. Endocrine/Metabolic: Reports: Diabetes, Type I Other Endocrine/Metabolic Family History: Dad and paternal grandmother have type I diabetes. - Tobacco Use Smoking Status *Q: Current Some Day Smoker Years of Tobacco use: 10 Packs/Tins Daily: 0.5 Used Tobacco, but Quit: No Second Hand Smoke Exposure: Yes - Caffeine Use Caffeine Use: Reports: Coffee, Soda - Alcohol Use Days Per Week of Alcohol Use: 1 Number of Drinks Per Day: 10 Total Drinks Per Week: 10 - Recreational Drug Use Recreational Drug Use: Yes Drug Use in Last 12 Months: Yes Recreational Drug Type: Reports: Marijuana/Hashish, Oxycodone Other Recreational Drug Type: patient states he has not used recreational drugs for the last 4 weeks. Recreational Drug Use Frequency: Weekly Recreational Drug Last Use: few days ago - Living Situation & Occupation Living situation: Reports: with Family ED ROS GENERAL - Review of Systems Review Of Systems: ROS reveals no pertinent complaints other than HPI. ED EXAM, GENERAL - Physical Exam Exam: See Below Exam Limited By: No Limitations General Appearance: Alert, No Apparent Distress, Anxious, Other (chronically ill appearing) Eye Exam: Bilateral Eye: Normal Inspection Ears: Normal External Exam, Hearing Grossly Normal Nose: Normal Inspection, Normal Mucosa, No Blood Throat/Mouth: Normal Lips, Normal Oropharynx, Normal Voice, No Airway Compromise Head: Atraumatic, Normocephalic Neck: Normal Inspection, Supple, Non-Tender, Full Range of Motion Cardiovascular: Regular Rate, Rhythm, No Edema GI/Abdominal: Soft, Non-Tender, No Distention, No Abnormal Bruit, Abnormal Bowel Sounds (slightly hyperactive bowel sounds). No: Guarding, Rigid, Rebound (Male) Exam: Deferred Rectal (Males) Exam: Deferred Back Exam: Normal Inspection Extremities: Normal Inspection, Normal Range of Motion, Non-Tender, Normal Capillary Refill, No Pedal Edema Neurological: Alert, Oriented, CN II-XII Intact, Normal Cognition, Normal Gait, No Motor/Sensory Deficits, Other (fine tremor of B/L hands) Psychiatric: Anxious Skin Exam: Warm, Dry, Intact, Normal Color, No Rash EKG INTERPRETATION EKG Date: 05/12/17 Time: 09:57 Rhythm: Other (SR) Rate (Beats/Min): 78 [place]: Normal P-Wave: Present QRS: Other (non-specific IVCD, LVH) ST-T: Other (lateral leads with flattened T-waves) QT: Normal Comparison: No Change EKG Interpretation Comments: No acute ischemic changes. Course - Vital Signs Last Recorded V/S: Last Vital Signs Temp 36.9 C 05/13/17 11:00 Pulse 78 05/13/17 11:00 Resp 22 H 05/13/17 11:00 BP 95/61 05/13/17 11:00 Pulse Ox 97 05/13/17 11:00 - Orders/Labs/Meds Orders: Active Orders 24 hr Category Date Time Status 2 Gram Sodium Diet [DIET] Diet 05/12/17 Dinner Active Fluid Restriction [DIET] Diet 05/12/17 Dinner Active Medication Orders Carvedilol (Coreg) 6.25 mg PO BIDMEALS [facility] Last Admin: 05/13/17 08:46 Dose: 6.25 mg Admin: 05/12/17 17:57 Dose: Not Given Enoxaparin Sodium (Lovenox) 40 mg SUBCUT DAILY [facility] Last Admin: 05/13/17 08:50 Dose: 40 mg Admin: 05/12/17 16:52 Dose: 40 mg Furosemide (Lasix) 40 mg PO BIDDIURETIC [facility] Last Admin: 05/13/17 08:48 Dose: 40 mg Admin: 05/12/17 16:52 Dose: 40 mg Lisinopril (Prinivil) 2.5 mg PO DAILY [facility] Last Admin: 05/13/17 08:47 Dose: 2.5 mg Admin: 05/12/17 16:51 Dose: 2.5 mg Lorazepam (Ativan) 1 mg PO BID PRN PRN Reason: Anxiety Last Admin: 05/13/17 08:49 Dose: 1 mg Admin: 05/12/17 23:35 Dose: 1 mg Admin: 05/12/17 17:54 Dose: 1 mg Nitroglycerin (Nitrostat) 0.4 mg SL Q5M PRN PRN Reason: Chest Pain Omeprazole (Omeprazole) 20 mg PO ACBREAKFAST [facility] Last Admin: 05/13/17 06:04 Dose: 20 mg Sertraline HCl (Zoloft) 50 mg PO DAILY [facility] Last Admin: 05/13/17 08:48 Dose: 50 mg Sodium Chloride (Saline Flush) 10 ml FLUSH ASDIRECTED PRN PRN Reason: Keep Vein Open Last Admin: 05/12/17 10:48 Dose: 10 ml Spironolactone (Aldactone) 25 mg PO DAILY [facility] Last Admin: 05/13/17 08:48 Dose: 25 mg Labs: Laboratory Tests 05/12/17 05/12/17 05/12/17 Range/Units 09:50 09:50 09:50 WBC 6.5 (5.0-10.0) 10^3/uL RBC 4.60 (4.6-6.2) 10^6/uL Hgb 13.4 L (14.0-18.0) g/dL Hct 40.0 (40.0-54.0) % MCV 87.0 D (80-100) fL MCH 29.1 (27.0-34.0) pg MCHC 33.5 (33.0-35.0) g/dL Plt Count 238 (150-450) 10^3/uL Neut % (Auto) 80.7 H (42.2-75.2) % Lymph % (Auto) 11.9 L (20.5-50.1) % [place] % (Auto) 5.1 (2-8) % Eos % (Auto) 2.0 (1.0-3.0) % Baso % (Auto) 0.3 (0.0-1.0) % PT 13.0 H (9.0-12.0) SEC INR 1.3 H (0.9-1.2) APTT 28.9 (22.0-34.0) SEC Sodium 138 (135-145) mmol/L Potassium 2.7 L (3.6-5.0) mmol/L Chloride 106 (101-111) mmol/L Carbon Dioxide 25.0 (21.0-31.0) mmol/L Anion Gap 9.7 BUN 6 L (7-18) mg/dL Creatinine 0.6 (0.6-1.3) mg/dL Est Cr Clr Drug Dosing TNP Estimated GFR (MDRD) > 60 BUN/Creatinine Ratio 10.00 Glucose 116 H (74-105) mg/dL Calcium 8.3 L (8.4-10.2) mg/dl Magnesium (1.8-2.5) mg/dL Total Bilirubin 1.6 H (0.2-1.0) mg/dL AST 28 (10-42) IU/L ALT 11 (10-60) IU/L Alkaline Phosphatase 91 (42-121) IU/L Creatine Kinase (26-174) IU/L Creatine Kinase Index (0-2.4) % CK-MB (CK-2) (0.4-4.7) ng/mL Troponin I < 0.01 (0.00-0.02) ng/ml B-Natriuretic Peptide 2820 H (0-100) pg/ml Total Protein 7.0 (6.7-8.2) g/dl Albumin 2.8 L (3.2-5.5) g/dl Globulin 4.2 Albumin/Globulin Ratio 0.67 Urine Color (YELLOW) Urine Appearance (CLEAR) Urine pH (5.0-9.0) Ur Specific [place] (1.005-1.030) Urine Protein (NEGATIVE) Urine Glucose (UA) (NEGATIVE) Urine Ketones (NEGATIVE) Urine Occult Blood (NEGATIVE) Urine Nitrite (NEGATIVE) Urine Bilirubin (NEGATIVE) Urine Urobilinogen (0.2-1.0) mg/dL Ur Leukocyte Esterase (NEGATIVE) Urine RBC /HPF Urine WBC (0-5/HPF) /HPF Ur Epithelial Cells /HPF Urine Bacteria (0-FEW/HPF) /HPF Urine Opiates Screen (NEGATIVE) Ur Oxycodone Screen (NEGATIVE) Urine Methadone Screen (NEGATIVE) Ur Barbiturates Screen (NEGATIVE) U Tricyclic Antidepress (NEGATIVE) Ur Phencyclidine Scrn (NEGATIVE) Ur Amphetamine Screen (NEGATIVE) U Methamphetamines Scrn (NEGATIVE) Urine MDMA Screen (NEGATIVE) U Benzodiazepines Scrn (NEGATIVE) Urine Cocaine Screen (NEGATIVE) U Marijuana (THC) Screen (NEGATIVE) 05/12/17 05/12/17 05/12/17 Range/Units 09:50 09:50 10:00 WBC (5.0-10.0) 10^3/uL RBC (4.6-6.2) 10^6/uL Hgb (14.0-18.0) g/dL Hct (40.0-54.0) % MCV (80-100) fL MCH (27.0-34.0) pg MCHC (33.0-35.0) g/dL Plt Count (150-450) 10^3/uL Neut % (Auto) (42.2-75.2) % Lymph % (Auto) (20.5-50.1) % [place] % (Auto) (2-8) % Eos % (Auto) (1.0-3.0) % Baso % (Auto) (0.0-1.0) % PT (9.0-12.0) SEC INR (0.9-1.2) APTT (22.0-34.0) SEC Sodium (135-145) mmol/L Potassium (3.6-5.0) mmol/L Chloride (101-111) mmol/L Carbon Dioxide (21.0-31.0) mmol/L Anion Gap BUN (7-18) mg/dL Creatinine (0.6-1.3) mg/dL Est Cr Clr Drug Dosing Estimated GFR (MDRD) BUN/Creatinine Ratio Glucose (74-105) mg/dL Calcium (8.4-10.2) mg/dl Magnesium 1.5 L (1.8-2.5) mg/dL Total Bilirubin (0.2-1.0) mg/dL AST (10-42) IU/L ALT (10-60) IU/L Alkaline Phosphatase (42-121) IU/L Creatine Kinase 35 (26-174) IU/L Creatine Kinase Index 6.6 H (0-2.4) % CK-MB (CK-2) 2.30 (0.4-4.7) ng/mL Troponin I (0.00-0.02) ng/ml B-Natriuretic Peptide (0-100) pg/ml Total Protein (6.7-8.2) g/dl Albumin (3.2-5.5) g/dl Globulin Albumin/Globulin Ratio Urine Color Yellow (YELLOW) Urine Appearance Slightly cloudy (CLEAR) Urine pH 6.5 (5.0-9.0) Ur Specific [place] 1.015 (1.005-1.030) Urine Protein Trace H (NEGATIVE) Urine Glucose (UA) 100 H (NEGATIVE) Urine Ketones Negative (NEGATIVE) Urine Occult Blood Trace-intact H (NEGATIVE) Urine Nitrite Negative (NEGATIVE) Urine Bilirubin Small H (NEGATIVE) Urine Urobilinogen >=8.0 H (0.2-1.0) mg/dL Ur Leukocyte Esterase Negative (NEGATIVE) Urine RBC 5-10 H /HPF Urine WBC 0-5 (0-5/HPF) /HPF Ur Epithelial Cells Rare /HPF Urine Bacteria Rare (0-FEW/HPF) /HPF Urine Opiates Screen (NEGATIVE) Ur Oxycodone Screen (NEGATIVE) Urine Methadone Screen (NEGATIVE) Ur Barbiturates Screen (NEGATIVE) U Tricyclic Antidepress (NEGATIVE) Ur Phencyclidine Scrn (NEGATIVE) Ur Amphetamine Screen (NEGATIVE) U Methamphetamines Scrn (NEGATIVE) Urine MDMA Screen (NEGATIVE) U Benzodiazepines Scrn (NEGATIVE) Urine Cocaine Screen (NEGATIVE) U Marijuana (THC) Screen (NEGATIVE) 05/12/17 Range/Units 10:00 WBC (5.0-10.0) 10^3/uL RBC (4.6-6.2) 10^6/uL Hgb (14.0-18.0) g/dL Hct (40.0-54.0) % MCV (80-100) fL MCH (27.0-34.0) pg MCHC (33.0-35.0) g/dL Plt Count (150-450) 10^3/uL Neut % (Auto) (42.2-75.2) % Lymph % (Auto) (20.5-50.1) % [place] % (Auto) (2-8) % Eos % (Auto) (1.0-3.0) % Baso % (Auto) (0.0-1.0) % PT (9.0-12.0) SEC INR (0.9-1.2) APTT (22.0-34.0) SEC Sodium (135-145) mmol/L Potassium (3.6-5.0) mmol/L Chloride (101-111) mmol/L Carbon Dioxide (21.0-31.0) mmol/L Anion Gap BUN (7-18) mg/dL Creatinine (0.6-1.3) mg/dL Est Cr Clr Drug Dosing Estimated GFR (MDRD) BUN/Creatinine Ratio Glucose (74-105) mg/dL Calcium (8.4-10.2) mg/dl Magnesium (1.8-2.5) mg/dL Total Bilirubin (0.2-1.0) mg/dL AST (10-42) IU/L ALT (10-60) IU/L Alkaline Phosphatase (42-121) IU/L Creatine Kinase (26-174) IU/L Creatine Kinase Index (0-2.4) % CK-MB (CK-2) (0.4-4.7) ng/mL Troponin I (0.00-0.02) ng/ml B-Natriuretic Peptide (0-100) pg/ml Total Protein (6.7-8.2) g/dl Albumin (3.2-5.5) g/dl Globulin Albumin/Globulin Ratio Urine Color (YELLOW) Urine Appearance (CLEAR) Urine pH (5.0-9.0) Ur Specific [place] (1.005-1.030) Urine Protein (NEGATIVE) Urine Glucose (UA) (NEGATIVE) Urine Ketones (NEGATIVE) Urine Occult Blood (NEGATIVE) Urine Nitrite (NEGATIVE) Urine Bilirubin (NEGATIVE) Urine Urobilinogen (0.2-1.0) mg/dL Ur Leukocyte Esterase (NEGATIVE) Urine RBC /HPF Urine WBC (0-5/HPF) /HPF Ur Epithelial Cells /HPF Urine Bacteria (0-FEW/HPF) /HPF Urine Opiates Screen Negative (NEGATIVE) Ur Oxycodone Screen Positive H (NEGATIVE) Urine Methadone Screen Negative (NEGATIVE) Ur Barbiturates Screen Negative (NEGATIVE) U Tricyclic Antidepress Negative (NEGATIVE) Ur Phencyclidine Scrn Negative (NEGATIVE) Ur Amphetamine Screen Negative (NEGATIVE) U Methamphetamines Scrn Positive H (NEGATIVE) Urine MDMA Screen Negative (NEGATIVE) U Benzodiazepines Scrn Negative (NEGATIVE) Urine Cocaine Screen Negative (NEGATIVE) U Marijuana (THC) Screen Positive H (NEGATIVE) Meds: Medications Generic Name Dose Route Start Last Admin Trade Name Freq PRN Reason Stop Dose Admin Carvedilol 6.25 mg 05/12/17 18:00 05/13/17 08:46 Coreg PO 6.25 mg BIDMEALS ANGELIQUE Administration Enoxaparin Sodium 40 mg 05/12/17 16:00 05/13/17 08:50 Lovenox SUBCUT 40 mg DAILY ANGELIQUE Administration Furosemide 40 mg 05/12/17 16:15 05/13/17 08:48 Lasix PO 40 mg BIDDIURETIC ANGELIQUE Administration Lisinopril 2.5 mg 05/12/17 16:15 05/13/17 08:47 Prinivil PO 2.5 mg DAILY ANGELIQUE Administration Lorazepam 1 mg 05/12/17 17:18 05/13/17 08:49 Ativan PO 1 mg BID PRN Administration Anxiety Nitroglycerin 0.4 mg 05/12/17 10:04 Nitrostat SL Q5M PRN Chest Pain Omeprazole 20 mg 05/13/17 06:00 05/13/17 06:04 Omeprazole PO 20 mg ACBREAKFAST ANGELIQUE Administration Sertraline HCl 50 mg 05/13/17 09:00 05/13/17 08:48 Zoloft PO 50 mg DAILY ANGELIQUE Administration Sodium Chloride 10 ml 05/12/17 09:36 05/12/17 10:48 Saline Flush FLUSH 10 ml ASDIRECTED PRN Administration Keep Vein Open Spironolactone 25 mg 05/13/17 09:00 05/13/17 08:48 Aldactone PO 25 mg DAILY ANGELIQUE Administration Discontinued Medications Generic Name Dose Route Start Last Admin Trade Name Freq PRN Reason Stop Dose Admin Aspirin 324 mg 05/12/17 10:04 05/12/17 10:47 Aspirin PO 05/12/17 10:05 324 mg ONETIME ONE Administration Furosemide 40 mg 05/12/17 10:05 05/12/17 10:48 Lasix IVPUSH 05/12/17 10:06 40 mg NOW ONE Administration Potassium Chloride 10 meq/ 100 mls @ 100 mls/hr 05/12/17 10:34 05/12/17 10:48 Premix IV 05/12/17 11:33 100 mls/hr ONETIME ONE Administration Magnesium Sulfate 2 gm/ Premix 50 mls @ 25 mls/hr 05/12/17 16:04 05/12/17 18: 49 IV 05/12/17 18:03 Infused ONETIME ONE Infusion Potassium Chloride 20 meq/ 100 mls @ 50 mls/hr 05/12/17 17:00 05/12/17 19:23 Premix IV 05/12/17 22:59 Not Given Q2H ANGELIQUE Potassium Chloride 20 meq/ 100 mls @ 50 mls/hr 05/12/17 20:00 05/12/17 23:37 Premix IV 05/13/17 01:59 50 mls/hr Q2H ANGELIQUE Administration Lorazepam 1 mg 05/12/17 11:01 05/12/17 11:19 Ativan IVPUSH 05/12/17 11:02 1 mg ONETIME ONE Administration Potassium Chloride 40 meq 05/12/17 11:01 05/12/17 11:14 Klor-Con 10 PO 05/12/17 11:02 40 meq ONETIME ONE Administration - Radiology Interpretation Free Text/Narrative:: CXR: chronic cardiomegaly, pacer w/leads, no acute changes. Departure - Departure Time of Disposition: 11:40 (admitted to Dr. De La Cruz) Disposition: Admitted As Inpatient 68 Condition: Serious Clinical Impression: Chronic alcohol abuse, Methamphetamine abuse, Polysubstance dependence including opioid type drug with complication, episodic abuse, Hypokalemia Acute exacerbation of CHF (congestive heart failure) Qualifiers: Heart failure type: unspecified Qualified Code(s): I50.9 - Heart failure, unspecified Alcohol withdrawal Qualifiers: Complication of substance-induced condition: uncomplicated Qualified Code(s): F10.230 - Alcohol dependence with withdrawal, uncomplicated
[2017-05-12] MEDS ORDERED: Nitroglycerin 0.4 MG Tab.SL SL PRN (10:04)
[2017-05-12] MEDS ORDERED: Aspirin 81 MG Tab.Chew PO ONE (10:04)
[2017-05-12] MEDS ORDERED: Furosemide 40 MG/4 ML VIAL IVPUSH ONE (10:05)
--- NOTE | 2017-05-12 10:06 | CR ---
Clinical history: 52-year-old male with chest pain, cough and rales who has a history of heart diseas e. Interpretation: Chronically enlarged cardiac silhouette (myocardiopathy versus pericardial effusion) and symmetrically prominent proximal pulmonary artery segments that are relatively smaller than previ ous exams of 16 April and 26 April 2017. Cardiac pacemaker (leads intact and unchanged) and external cardiac care nurse leads. No new cephalization of vascular flow, signs of alveolar edema or dependent pleural fluid accumulatio n. No new lung mass, hilar lymphadenopathy or focal lobar pneumonia. No atelectasis/collapse. No pneumot horax. CONCLUSION: Chronically abnormal cardiac silhouette. No new signs of heart failure or lobar pneumonia .
[2017-05-12 10:20] LABS: CHLORIDE,CL 106 mmol/L (101-111); SODIUM,NA 138 mmol/L (135-145)
[2017-05-12] MEDS ORDERED: Potassium Chloride 10 MEQ in Premix Bag 1 BAG IV ONE (10:34)
[2017-05-12] MEDS ORDERED: Potassium Chloride 10 MEQ Tab.ER PO ONE (11:01)
[2017-05-12] MEDS ORDERED: LORazepam 2 MG/ML Syringe IVPUSH ONE (11:01)
[2017-05-12] MEDS ORDERED: Magnesium Sulfate/Water 2 GM in Premix Bag 1 BAG IV ONE (16:04)
--- NOTE | 2017-05-12 16:13 | PCM.HP ---
H&P History of Present Illness - General Date of Service: 05/12/17 Admit Problem/Dx: Admission Diagnosis/Problem Admission Diagnosis/Problem Hypokalemia Source of Information: Patient History Limitations: Reports: No Limitations - History of Present Illness Initial Comments - Free Text/Narative: 52 yo M with PMH of CHF (EF 25% NICM, s/p ICD), HTN, HLD, chronic substance abuse, alcoholism, cigarette smoking who presents to the ED with chest pain, generalized weakness. Chest pain started at 3 am this morning, 08/16, located in left chest, non- radiating Pain lasted for 30 minutes and has been intermittent. Pain is sharp Currently chest pain free. Has noticed weakness and flu like symptoms in the last few days Gets very tired on exertion No SOB, no palpitations, no leg swelling, no abdominal pain. A review of his chart shows that he has had multiple admissions for chest pain in the last few months. SH: admits to methamphetamine, marijuana and cigarette smoking. Last alcohol drink was two days ago. Onset of Symptoms: Reports: Today Location: Reports: Chest Quality: Reports: Sharp Severity: Moderate Improves with: Reports: None Worsens with: Reports: None Associated Symptoms: Reports: Weakness Mid-Sternal Chest Pain Score (Numeric/FACES): 6 - Related Data Allergies/Adverse Reactions: Allergies Allergy/AdvReac Type Severity Reaction Status Date / Time No Known Allergies Allergy Verified 05/12/17 12:12 Home Medications: Home Meds Carvedilol [Coreg] 6.25 mg PO BIDMEALS 10/18/15 [History] Furosemide [Lasix] 40 mg PO Q12H 30 Days #60 tablet 04/20/17 [Rx] Lisinopril 2.5 mg PO DAILY #30 04/20/17 [Rx] Omeprazole 20 mg PO ACBREAKFAST 30 Days #30 cap.cr 04/20/17 [Rx] Potassium Chloride [Klor-Con 10] 20 meq PO DAILY #30 tab.er 04/20/17 [Rx] Sertraline [Zoloft] 50 mg PO DAILY 30 Days #30 tablet 04/20/17 [Rx] Spironolactone [Aldactone] 25 mg PO DAILY 30 Days #30 tablet 04/20/17 [Rx] Past Medical History - Past Health History Medical/Surgical History: Denies Medical/Surgical History HEENT History: Reports: None Cardiovascular History: Reports: Cardiomyopathy, Heart Failure, Hypertension, Pacemaker Respiratory History: Reports: SOB Gastrointestinal History: Reports: Gastritis, GERD Genitourinary History: Reports: Other (See Below) Other Genitourinary History: liver issues r/t ETOH Musculoskeletal History: Reports: Arthritis, Other (See Below) Other Musculoskeletal History: torn left and right upper arm tendon. missed surgery 03/2017 Neurological History: Reports: None Psychiatric History: Reports: Addiction, Anxiety, Panic Attack Other Psychiatric History: Pt states that he has been in treatment for alcoholism many times, last times 10 years ago, and he quit drinking for 8 years Endocrine/Metabolic History: Reports: None Hematologic History: Reports: None Immunologic History: Reports: None Oncologic (Cancer) History: Reports: None Dermatologic History: Reports: None - Infectious Disease History Infectious Disease History: Reports: None - Past Surgical History Head Surgeries/Procedures: Reports: None Cardiovascular Surgical History: Reports: Percutaneous Transluminal Angioplasty Respiratory Surgical History: Reports: None GI Surgical History: Reports: None Male Surgical History: Reports: None Neurological Surgical History: Reports: None Musculoskeletal Surgical History: Reports: None Social & Family History - Family History Family Medical History: Noncontributory Cardiac: Reports: Hypertension Other Cardiac Family History: Dad and paternal grandmother have hypertension. Respiratory: Reports: Asthma Other Respiratory Family Hisory: Mom and dad have asthma. Endocrine/Metabolic: Reports: Diabetes, Type I Other Endocrine/Metabolic Family History: Dad and paternal grandmother have type I diabetes. - Tobacco Use Smoking Status *Q: Current Every Day Smoker Years of Tobacco use: 10 Packs/Tins Daily: 0.5 Used Tobacco, but Quit: No Second Hand Smoke Exposure: Yes - Caffeine Use Caffeine Use: Reports: Coffee - Alcohol Use Days Per Week of Alcohol Use: 1 Number of Drinks Per Day: 10 Total Drinks Per Week: 10 Date of Last Drink: 05/11/17 Time of Last Drink: 16:00 - Recreational Drug Use Recreational Drug Use: Yes Drug Use in Last 12 Months: Yes Recreational Drug Type: Reports: Methamphetamine, Other (see below) Other Recreational Drug Type: hydrocodone, percocet Recreational Drug Use Frequency: Daily Recreational Drug Last Use: few days ago - Living Situation & Occupation Living situation: Reports: with Family H&P Review of Systems - Review of Systems: Review Of Systems: ROS reveals no pertinent complaints other than HPI. Exam - Exam Exam: See Below - Vital Signs Vital Signs: Last Vital Signs Temp 36.7 C 05/12/17 15:41 Pulse 78 05/12/17 15:41 Resp 20 05/12/17 15:41 BP 106/71 05/12/17 15:41 Pulse Ox 100 05/12/17 15:59 Weight: 77.111 kg - Exam General: Alert, Oriented, 4 HEENT: PERRLA, Hearing Intact, Mucosa Moist & [place], Nares Patent, Normal Nasal Septum, Posterior Pharynx Clear, Conjunctiva Clear, EOMI, EACs Clear, TMs Clear Neck: Supple, Trachea Midline, 2 Lungs: Clear to Auscultation, Normal Respiratory Effort Cardiovascular: Regular Rate, Regular Rhythm GI/Abdominal Exam: Normal Bowel Sounds - Patient Data Result Diagrams: 05/12/17 09:50 05/12/17 09:50 Imaging Impressions Last 24 hrs: CXR - no infiltrates or effusions EKG INTERPRETATION Rhythm: NSR *Q Meaningful Use (ADM) - VTE *Q VTE Criteria *Q: - Stroke *Q Stroke Criteria *Q: - AMI *Q AMI Criteria *Q: - Problem List (1) Hypokalemia SNOMED Code(s): 23712518 ICD Code: E87.6 - HYPOKALEMIA Status: Acute Current Visit: Yes (2) Methamphetamine abuse SNOMED Code(s): 452686259 ICD Code: F15.10 - OTHER STIMULANT ABUSE, UNCOMPLICATED Status: Acute Current Visit: No (3) Polysubstance abuse SNOMED Code(s): 217209290 ICD Code: F19.10 - OTHER PSYCHOACTIVE SUBSTANCE ABUSE, UNCOMPLICATED Status : Chronic Current Visit: No Problem List Initiated/Reviewed/Updated: Yes Orders Last 24hrs: Active Orders 24 hr Category Date Time Status Patient Status [ADT] Routine ADT 05/12/17 15:59 Ordered Height and Weight [RC] DAILY Care 05/12/17 15:59 Ordered Intake and Output [RC] QSHIFT Care 05/12/17 16:00 Ordered Oxygen Therapy [RC] PRN Care 05/12/17 15:59 Ordered Up ad Yudelka [RC] ASDIRECTED Care 05/12/17 15:59 Ordered VTE/DVT Education [RC] PER UNIT ROUTINE Care 05/12/17 15:59 Ordered Vital Signs [RC] Q4H Care 05/12/17 15:59 Ordered 2 Gram Sodium Diet [DIET] Diet 05/12/17 Dinner Active Fluid Restriction [DIET] Diet 05/12/17 Dinner Active Heart Healthy Diet [DIET] Diet 05/12/17 Dinner Ordered BASIC METABOLIC PANEL,BMP [CHEM] AM Lab 05/13/17 05:11 Ordered BASIC METABOLIC PANEL,BMP [CHEM] Timed Lab 05/12/17 18:00 Ordered INFLUENZA A,B, H1N1 BY PCR [MREF] Stat Lab 05/12/17 16:07 Ordered MAGNESIUM [CHEM] AM Lab 05/13/17 05:11 Ordered MAGNESIUM [CHEM] Timed Lab 05/12/17 18:00 Ordered Carvedilol [Coreg] Med 05/12/17 18:00 Ordered 6.25 mg PO BIDMEALS Enoxaparin [Lovenox] Med 05/12/17 16:00 Ordered 40 mg SUBCUT DAILY Furosemide [Lasix] Med 05/12/17 16:15 Ordered 40 mg PO Q12H Lisinopril [Lisinopril] Med 05/12/17 16:15 Ordered 2.5 mg PO DAILY Magnesium Sulfate/Water [Magnesium Sulfate 2 GM in Med 05/12/17 16:04 Ordered Water 50 ML] 2 gm Premix Bag 1 bag IV ONETIME Omeprazole Med 05/13/17 06:00 Ordered 20 mg PO ACBREAKFAST Potassium Chloride [KCL 20 MEQ in Water 100 ML] 20 meq Med 05/12/17 16:15 Ordered Premix Bag 1 bag IV Q2H Sertraline [Zoloft] Med 05/13/17 09:00 Ordered 50 mg PO DAILY Spironolactone [Aldactone] Med 05/13/17 09:00 Ordered 25 mg PO DAILY Resuscitation Status Routine Resus Stat 05/12/17 15:59 Ordered Medication Orders Carvedilol (Coreg) 6.25 mg PO BIDMEALS ANGELIQUE Enoxaparin Sodium (Lovenox) 40 mg SUBCUT DAILY [facility] Furosemide (Lasix) 40 mg PO Q12H ANG[facility] Magnesium Sulfate 2 gm/ Premix 50 mls @ 25 mls/hr IV ONETIME ONE Stop: 05/12/17 18:03 Potassium Chloride 20 meq/ (Premix) 100 mls @ 50 mls/hr IV Q2H [facility] Stop: 05/12/17 22:14 Nitroglycerin (Nitrostat) 0.4 mg SL Q5M PRN PRN Reason: Chest Pain Non-Formulary Medication (Lisinopril [Lisinopril]) 2.5 mg PO DAILY [facility] Omeprazole (Omeprazole) 20 mg PO ACBREAKFAST [facility] Sertraline HCl (Zoloft) 50 mg PO DAILY [facility] Sodium Chloride (Saline Flush) 10 ml FLUSH ASDIRECTED PRN PRN Reason: Keep Vein Open Last Admin: 05/12/17 10:48 Dose: 10 ml Spironolactone (Aldactone) 25 mg PO DAILY [facility] Assessment/Plan Comment:: 52 yo M with hx of CHF comes to the ED with chest pain, weakness, hx of flu symptoms. # Chest pain non-cardiac chest pain troponin negative, EKG unchanged from previous currently chest pain free admit for observation # Hypokalemia K 2.7 replenish potassium IV and orally # Hypomagnesemia replenish Magnesium # Generalized weakness check flu PCR # Substance abuse disorder UDS positive for marijuana and meth counseled to seek rehab for drug use # Chronic alcohol intake monitor CIWAs no features of wwithdrawal at present time # CHF stable, not in acute exacerbation fluid restriction to 1.5L per day sodium restriction to 2g per day Continue coreg, lisinopril, lasix, spironolactone home dose # DVT ppx SC lovenox
[2017-05-12] MEDS: Lisinopril 5 MG Tab PO SCH (16:51)
[2017-05-12] MEDS: Furosemide 40 MG Tab PO SCH (16:52)
[2017-05-12] MEDS: Enoxaparin 40 MG/0.4 ML Syringe SUBCUT SCH (16:52)
[2017-05-12] MEDS ORDERED: Potassium Chloride 20 MEQ in Premix Bag 1 BAG IV SCH (17:00)
[2017-05-12] MEDS: LORazepam 1 MG Tab PO PRN ×2 (17:54→23:35)
[2017-05-12] MEDS: Carvedilol 6.25 MG Tab PO SCH (17:57)
[2017-05-12] MEDS: Potassium Chloride 20 MEQ in Premix Bag 1 BAG IV SCH ×3 (19:20→23:37)
[2017-05-13] MEDS ORDERED: Omeprazole 20 MG Cap.CR PO SCH (06:00)
[2017-05-13 07:03] LABS: CHLORIDE,CL 109 mmol/L (101-111); SODIUM,NA 141 mmol/L (135-145)
[2017-05-13] MEDS: Carvedilol 6.25 MG Tab PO SCH (08:46)
[2017-05-13] MEDS: Lisinopril 5 MG Tab PO SCH (08:47)
[2017-05-13] MEDS: Furosemide 40 MG Tab PO SCH (08:48)
[2017-05-13] MEDS: LORazepam 1 MG Tab PO PRN (08:49)
[2017-05-13] MEDS: Enoxaparin 40 MG/0.4 ML Syringe SUBCUT SCH (08:50)
[2017-05-13] MEDS ORDERED: Sertraline 50 MG Tab PO SCH (09:00)
[2017-05-13] MEDS ORDERED: Spironolactone 25 MG Tab PO SCH (09:00)
--- NOTE | 2017-05-13 09:55 | PCM.DCSUM1 ---
Discharge Summary - Hospital Course Free Text/Narrative:: 52 yo M with PMH of CHF, substance abuse admitted with chest pain. Troponin negative, EKG unchanged. Chest pain resolved on admission. Found to be severely hypokalemic, most likely from diuretic. Potassium replenished orally and IV. Discharged on potassium supplement. To follow up with Cardiology clinic next week (previously scheduled). - Discharge Data Discharge Date: 05/13/17 Discharge Disposition: Home, Self-Care 01 Condition: Stable - Discharge Diagnosis/Problem(s) (1) Hypokalemia SNOMED Code(s): 97910872 ICD Code: E87.6 - HYPOKALEMIA Status: Acute Current Visit: Yes (2) Methamphetamine abuse SNOMED Code(s): 730510229 ICD Code: F15.10 - OTHER STIMULANT ABUSE, UNCOMPLICATED Status: Acute Current Visit: No (3) Polysubstance abuse SNOMED Code(s): 760788238 ICD Code: F19.10 - OTHER PSYCHOACTIVE SUBSTANCE ABUSE, UNCOMPLICATED Status : Chronic Current Visit: No - Patient Instructions Diet: Heart Healthy Diet, Low Sodium Fluid Restriction: 1500 mL Activity: As Tolerated - Discharge Plan Home Medications: Home Meds Carvedilol [Coreg] 6.25 mg PO BIDMEALS 10/18/15 [History] Furosemide [Lasix] 40 mg PO Q12H 30 Days #60 tablet 04/20/17 [Rx] Lisinopril 2.5 mg PO DAILY #30 04/20/17 [Rx] Omeprazole 20 mg PO ACBREAKFAST 30 Days #30 cap.cr 04/20/17 [Rx] Potassium Chloride [Klor-Con 10] 20 meq PO DAILY #30 tab.er 04/20/17 [Rx] Sertraline [Zoloft] 50 mg PO DAILY 30 Days #30 tablet 04/20/17 [Rx] Spironolactone [Aldactone] 25 mg PO DAILY 30 Days #30 tablet 04/20/17 [Rx] Forms: ED Department Discharge Referrals: Roger Waters MD [Primary Care Provider] - - General Info Date of Service: 05/13/17 Admission Dx/Problem (Free Text: Admission Diagnosis/Problem Admission Diagnosis/Problem Hypokalemia Subjective Update: Patient seen and examined by me. No new complaints. - Review of Systems General: Reports: No Symptoms HEENT: Reports: No Symptoms Pulmonary: Reports: No Symptoms Cardiovascular: Reports: No Symptoms Gastrointestinal: Reports: No Symptoms Genitourinary: Reports: No Symptoms Musculoskeletal: Reports: No Symptoms - Patient Data Vitals - Most Recent: Last Vital Signs Temp 37.3 C 05/13/17 07:00 Pulse 85 05/13/17 08:46 Resp 24 H 05/12/17 23:00 BP 106/78 05/13/17 08:47 Pulse Ox 99 05/13/17 07:00 Weight - Most Recent: 74.298 kg I&O - Last 24 hours: Intake & Output 05/12/17 05/13/17 05/13/17 22:59 06:59 14:59 Intake Total 657 15 440 Output Total 1550 400 Balance -893 -385 440 Lab Results - Last 24 hrs: Laboratory Results - last 24 hr 05/13/17 Range/Units 06:25 Sodium 141 (135-145) mmol/L Potassium 3.9 (3.6-5.0) mmol/L Chloride 109 (101-111) mmol/L Carbon Dioxide 26.0 (21.0-31.0) mmol/L Anion Gap 9.9 BUN 13 (7-18) mg/dL Creatinine 0.7 (0.6-1.3) mg/dL Est Cr Clr Drug Dosing 126.25 mL/min Estimated GFR (MDRD) > 60 Glucose 101 (74-105) mg/dL Calcium 8.5 (8.4-10.2) mg/dl Magnesium 1.9 (1.8-2.5) mg/dL LETI Results - Last 24 hrs: Microbiology 05/12/17 21:00 Influenza Type A Antigen Screen - Final Nasopharyngeal Swab NEGATIVE INFLUENZA A VIRUS AG Influenza Type B Antigen Screen - Final NEGATIVE INFLUENZA B VIRUS AG Med Orders - Current: Current Medications Carvedilol (Coreg) 6.25 mg PO BIDMEALS [facility] Last Admin: 05/13/17 08:46 Dose: 6.25 mg Enoxaparin Sodium (Lovenox) 40 mg SUBCUT DAILY [facility] Last Admin: 05/13/17 08:50 Dose: 40 mg Furosemide (Lasix) 40 mg PO BIDDIURETIC [facility] Last Admin: 05/13/17 08:48 Dose: 40 mg Lisinopril (Prinivil) 2.5 mg PO DAILY [facility] Last Admin: 05/13/17 08:47 Dose: 2.5 mg Lorazepam (Ativan) 1 mg PO BID PRN PRN Reason: Anxiety Last Admin: 05/13/17 08:49 Dose: 1 mg Nitroglycerin (Nitrostat) 0.4 mg SL Q5M PRN PRN Reason: Chest Pain Omeprazole (Omeprazole) 20 mg PO ACBREAKFAST [facility] Last Admin: 05/13/17 06:04 Dose: 20 mg Sertraline HCl (Zoloft) 50 mg PO DAILY [facility] Last Admin: 05/13/17 08:48 Dose: 50 mg Sodium Chloride (Saline Flush) 10 ml FLUSH ASDIRECTED PRN PRN Reason: Keep Vein Open Last Admin: 05/12/17 10:48 Dose: 10 ml Spironolactone (Aldactone) 25 mg PO DAILY [facility] Last Admin: 05/13/17 08:48 Dose: 25 mg Discontinued Medications Aspirin (Aspirin) 324 mg PO ONETIME ONE Stop: 05/12/17 10:05 Last Admin: 05/12/17 10:47 Dose: 324 mg Furosemide (Lasix) 40 mg IVPUSH NOW ONE Stop: 05/12/17 10:06 Last Admin: 05/12/17 10:48 Dose: 40 mg Potassium Chloride 10 meq/ (Premix) 100 mls @ 100 mls/hr IV ONETIME ONE Stop: 05/12/17 11:33 Last Admin: 05/12/17 10:48 Dose: 100 mls/hr Magnesium Sulfate 2 gm/ Premix 50 mls @ 25 mls/hr IV ONETIME ONE Stop: 05/12/17 18:03 Last Infusion: 05/12/17 18:49 Dose: Infused Potassium Chloride 20 meq/ (Premix) 100 mls @ 50 mls/hr IV Q2H [facility] Stop: 05/12/17 22:59 Last Admin: 05/12/17 19:23 Dose: Not Given Potassium Chloride 20 meq/ (Premix) 100 mls @ 50 mls/hr IV Q2H [facility] Stop: 05/13/17 01:59 Last Admin: 05/12/17 23:37 Dose: 50 mls/hr Lorazepam (Ativan) 1 mg IVPUSH ONETIME ONE Stop: 05/12/17 11:02 Last Admin: 05/12/17 11:19 Dose: 1 mg Potassium Chloride (Klor-Con 10) 40 meq PO ONETIME ONE Stop: 05/12/17 11:02 Last Admin: 05/12/17 11:14 Dose: 40 meq - Exam General: Reports: Alert, Oriented HEENT: Reports: Pupils Equal, Pupils Reactive, EOMI, Mucous Membr. Moist/[place] Neck: Reports: Supple Lungs: Reports: Clear to Auscultation, Normal Respiratory Effort Cardiovascular: Reports: Regular Rate, Regular Rhythm GI/Abdominal Exam: Normal Bowel Sounds, Soft, Non-Tender, No Organomegaly, No Distention, No Abnormal Bruit, No Mass, Pelvis Stable *Q Meaningful Use (DIS) - VTE *Q VTE Criteria *Q: - Stroke *Q Stroke Criteria *Q: - AMI *Q AMI Criteria *Q:
[2017-05-13 11:14] VITALS: BP 95/61
== END 2017-05-13 12:30 | disposition home or self-care (01) ==
LOC: DL.ED 09:35 → INTOOBSV 11:48 → UNDOADMOB 11:48 → DL.MS 11:48
PROVIDERS: ADMIT Hospitalist; ATTEND Hospitalist
DX: E87.6 Hypokalemia (principal); F15.10 Other stimulant abuse, uncomplicated; F19.10 Other psychoactive substance abuse, uncomplicated; K21.9 Gastro-esophageal reflux disease without esophagitis; F41.9 Anxiety disorder, unspecified; Z79.899 Other long term (current) drug therapy; Z95.5 Presence of coronary angioplasty implant and graft; F17.210 Nicotine dependence, cigarettes, uncomplicated
CPT/HCPCS: 36415; 71046; 80048; 80053; 80305; 81001; 82550; 82553; 83735; 83880; 84484; 85025; 85610; 85730; 87804; 93005; 96365; 96366; 96367; 96372; 96375; 99285; A9270; G0378; J1650; J1940; J2060; J3480; J7050; J3475

== ENCOUNTER 2017-05-18 07:13 | Emergency (ER) | payer MEDICAID, OTHER ==
--- NOTE | 2017-05-18 07:18 | EDM.PDOC ---
ED HPI GENERAL MEDICAL PROBLEM - General Chief Complaint: Respiratory Problem Stated Complaint: IN BY AMBULANCE Time Seen by Provider: 05/18/17 07:15 Source of Information: Reports: Patient, EMS, Old Records, RN, RN Notes Reviewed History Limitations: Reports: No Limitations - History of Present Illness INITIAL COMMENTS - FREE TEXT/NARRATIVE: Arrives from home by ambulance with c/o shortness of breath, and anxiety. Pt seen here on 05/12/17 for similar complaint and admitted. Pt states that upon discharge he used meth and drank alcohol and did not take his lasix for several days. Then he got worried about his heart and stopped his "ballard" and hasn't used drugs or alcohol since yesterday morning. Last evening he began to cough up clear-white foamy sputum, and this morning had some yellow-greenish sputum also. Denies fever or chills. Admits to generalized chest pressure, shortness of breath, and anxiety. Pt states he is "having withdrawals". Onset Date: 05/17/17 Duration: Constant, Recurring Location: Reports: Chest, Generalized Quality: Reports: Pressure, Same as Previous Episode Severity: Severe Improves with: Reports: None Worsens with: Reports: None Associated Symptoms: Reports: No Other Symptoms Chest Pain Score (Numeric/FACES): 5 - Related Data Allergies Allergy/AdvReac Type Severity Reaction Status Date / Time No Known Allergies Allergy Verified 05/18/17 07:16 Home Meds: Home Meds Carvedilol [Coreg] 6.25 mg PO BIDMEALS 10/18/15 [History] Furosemide [Lasix] 40 mg PO Q12H 30 Days #60 tablet 04/20/17 [Rx] Lisinopril 2.5 mg PO DAILY #30 04/20/17 [Rx] Omeprazole 20 mg PO ACBREAKFAST 30 Days #30 cap.cr 04/20/17 [Rx] Potassium Chloride [Klor-Con 10] 20 meq PO DAILY #30 tab.er 04/20/17 [Rx] Sertraline [Zoloft] 50 mg PO DAILY 30 Days #30 tablet 04/20/17 [Rx] Spironolactone [Aldactone] 25 mg PO DAILY 30 Days #30 tablet 04/20/17 [Rx] Past Medical History - Past Health History Medical/Surgical History: Denies Medical/Surgical History HEENT History: Reports: None Cardiovascular History: Reports: Cardiomyopathy, Heart Failure, Hypertension, Pacemaker Respiratory History: Reports: SOB Gastrointestinal History: Reports: Gastritis, GERD Genitourinary History: Reports: Other (See Below) Other Genitourinary History: liver issues r/t ETOH Musculoskeletal History: Reports: Arthritis, Other (See Below) Other Musculoskeletal History: torn left and right upper arm tendon. missed surgery 03/2017 Neurological History: Reports: None Psychiatric History: Reports: Addiction, Anxiety, Panic Attack Other Psychiatric History: Pt states that he has been in treatment for alcoholism many times, last times 10 years ago, and he quit drinking for 8 years Endocrine/Metabolic History: Reports: None Hematologic History: Reports: None Immunologic History: Reports: None Oncologic (Cancer) History: Reports: None Dermatologic History: Reports: None - Infectious Disease History Infectious Disease History: Reports: None - Past Surgical History Head Surgeries/Procedures: Reports: None Cardiovascular Surgical History: Reports: Percutaneous Transluminal Angioplasty GI Surgical History: Reports: None Male Surgical History: Reports: None Musculoskeletal Surgical History: Reports: None Social & Family History - Family History Family Medical History: Noncontributory Cardiac: Reports: Hypertension Other Cardiac Family History: Dad and paternal grandmother have hypertension. Respiratory: Reports: Asthma Other Respiratory Family Hisory: Mom and dad have asthma. Endocrine/Metabolic: Reports: Diabetes, Type I Other Endocrine/Metabolic Family History: Dad and paternal grandmother have type I diabetes. - Tobacco Use Smoking Status *Q: Current Some Day Smoker Years of Tobacco use: 10 Packs/Tins Daily: 0.5 Used Tobacco, but Quit: No Second Hand Smoke Exposure: Yes - Caffeine Use Caffeine Use: Reports: Coffee, Soda - Alcohol Use Days Per Week of Alcohol Use: 1 Number of Drinks Per Day: 10 Total Drinks Per Week: 10 - Recreational Drug Use Recreational Drug Use: Yes Drug Use in Last 12 Months: Yes Recreational Drug Type: Reports: Marijuana/Hashish, Oxycodone Other Recreational Drug Type: patient states he has not used recreational drugs for the last 4 weeks. Recreational Drug Use Frequency: Weekly Recreational Drug Last Use: few days ago - Living Situation & Occupation Living situation: Reports: with Family ED ROS GENERAL - Review of Systems Review Of Systems: ROS reveals no pertinent complaints other than HPI. ED EXAM, GENERAL - Physical Exam Exam: See Below Exam Limited By: No Limitations General Appearance: Alert, No Apparent Distress, Anxious, Other (chronically ill appearing) Eye Exam: Bilateral Eye: EOMI, PERRL, Other (mild scleral icterus (new/acute finding)) Ears: Normal External Exam, Hearing Grossly Normal Nose: Normal Inspection, Normal Mucosa, No Blood Throat/Mouth: Normal Inspection, Normal Oropharynx, Normal Voice, No Airway Compromise Head: Atraumatic, Normocephalic Neck: Supple, Non-Tender, Full Range of Motion Respiratory/Chest: No Respiratory Distress, No Accessory Muscle Use, Chest Non- Tender, Decreased Breath Sounds, Crackles, Rales Cardiovascular: Regular Rate, Rhythm, No Edema, JVD, Tachycardia GI/Abdominal: Normal Bowel Sounds, Soft, Non-Tender, No Distention (Male) Exam: Deferred Rectal (Males) Exam: Deferred Back Exam: Normal Inspection Extremities: Normal Inspection, Normal Range of Motion, Non-Tender, Normal Capillary Refill, No Pedal Edema Neurological: Alert, Oriented, CN II-XII Intact, No Motor/Sensory Deficits Psychiatric: Anxious Skin Exam: Warm, Dry, Intact, No Rash, Jaundice EKG INTERPRETATION EKG Date: 05/18/17 Time: 07:16 Rhythm: Other (PACED) Rate (Beats/Min): 107 Comparison: Change From Previous EKG (Prior EKG's (multiple) some paced, some not.) Course - Vital Signs Last Recorded V/S: Last Vital Signs Temp 36.4 C 05/18/17 07:17 Pulse 106 H 05/18/17 07:17 Resp 18 05/18/17 07:17 BP 116/88 05/18/17 07:17 Pulse Ox 100 05/18/17 07:17 - Orders/Labs/Meds Orders: Active Orders 24 hr Category Date Time Status EKG 12 Lead [EKG Documentation Completion] [RC] STAT Care 05/18/17 07:18 Active Peripheral IV Care [RC] . DIRECTED Care 05/18/17 07:19 Active Chest 1V Frontal [CR] Stat Exams 05/18/17 07:18 Taken CULTURE URINE [RM] Stat Lab 05/18/17 08:16 Ordered Sodium Chloride 0.9% [Saline Flush] Med 05/18/17 07:18 Active 10 ml FLUSH ASDIRECTED PRN Peripheral IV Insertion Adult [OM.PC] Stat Oth 05/18/17 07:18 Ordered Medication Orders Sodium Chloride (Saline Flush) 10 ml FLUSH ASDIRECTED PRN PRN Reason: Keep Vein Open Last Admin: 05/18/17 07:48 Dose: 10 ml Admin: 05/18/17 07:26 Dose: 10 ml Labs: Laboratory Tests 05/18/17 05/18/17 05/18/17 Range/Units 07:18 07:18 07:18 WBC 6.9 (5.0-10.0) 10^3/uL RBC 4.68 (4.6-6.2) 10^6/uL Hgb 13.5 L (14.0-18.0) g/dL Hct 41.3 (40.0-54.0) % MCV 88.2 (80-100) fL MCH 28.8 (27.0-34.0) pg MCHC 32.7 L (33.0-35.0) g/dL Plt Count 204 (150-450) 10^3/uL Neut % (Auto) 71.9 (42.2-75.2) % Lymph % (Auto) 17.2 L (20.5-50.1) % [place] % (Auto) 7.3 (2-8) % Eos % (Auto) 3.2 H (1.0-3.0) % Baso % (Auto) 0.4 (0.0-1.0) % Sodium 136 (135-145) mmol/L Potassium 3.2 L (3.6-5.0) mmol/L Chloride 103 (101-111) mmol/L Carbon Dioxide 24.0 (21.0-31.0) mmol/L Anion Gap 12.2 BUN 10 (7-18) mg/dL Creatinine 0.7 (0.6-1.3) mg/dL Est Cr Clr Drug Dosing 126.25 mL/min Estimated GFR (MDRD) > 60 BUN/Creatinine Ratio 14.28 Glucose 96 (74-105) mg/dL Calcium 8.7 (8.4-10.2) mg/dl Total Bilirubin 3.8 H (0.2-1.0) mg/dL AST 25 (10-42) IU/L ALT 11 (10-60) IU/L Alkaline Phosphatase 97 (42-121) IU/L Creatine Kinase (26-174) IU/L Creatine Kinase Index (0-2.4) % CK-MB (CK-2) (0.4-4.7) ng/mL Troponin I 0.04 H* (0.00-0.02) ng/ml B-Natriuretic Peptide 4680 H (0-100) pg/ml Total Protein 8.3 H (6.7-8.2) g/dl Albumin 3.2 (3.2-5.5) g/dl Globulin 5.1 Albumin/Globulin Ratio 0.63 Urine Color Dark yellow (YELLOW) Urine Appearance Slightly cloudy (CLEAR) Urine pH 5.0 (5.0-9.0) Ur Specific [place] >= 1.030 (1.005-1.030) Urine Protein 100 H (NEGATIVE) Urine Glucose (UA) Negative (NEGATIVE) Urine Ketones Trace H (NEGATIVE) Urine Occult Blood Moderate H (NEGATIVE) Urine Nitrite Positive H (NEGATIVE) Urine Bilirubin Large H (NEGATIVE) Urine Urobilinogen 2.0 H (0.2-1.0) mg/dL Ur Leukocyte Esterase Negative (NEGATIVE) Urine RBC 5-10 H /HPF Urine WBC 0-5 (0-5/HPF) /HPF Ur Epithelial Cells Rare /HPF Calcium Oxalate Crystal Rare /HPF Amorphous Sediment Few (0/HPF) /HPF Urine Bacteria Rare (0-FEW/HPF) /HPF Granular Casts Rare /LPF Urine Mucus Rare /LPF Urine Opiates Screen (NEGATIVE) Ur Oxycodone Screen (NEGATIVE) Urine Methadone Screen (NEGATIVE) Ur Barbiturates Screen (NEGATIVE) U Tricyclic Antidepress (NEGATIVE) Ur Phencyclidine Scrn (NEGATIVE) Ur Amphetamine Screen (NEGATIVE) U Methamphetamines Scrn (NEGATIVE) Urine MDMA Screen (NEGATIVE) U Benzodiazepines Scrn (NEGATIVE) Urine Cocaine Screen (NEGATIVE) U Marijuana (THC) Screen (NEGATIVE) Ethyl Alcohol < 5 mg/dL 05/18/17 05/18/17 Range/Units 07:18 07:19 WBC (5.0-10.0) 10^3/uL RBC (4.6-6.2) 10^6/uL Hgb (14.0-18.0) g/dL Hct (40.0-54.0) % MCV (80-100) fL MCH (27.0-34.0) pg MCHC (33.0-35.0) g/dL Plt Count (150-450) 10^3/uL Neut % (Auto) (42.2-75.2) % Lymph % (Auto) (20.5-50.1) % [place] % (Auto) (2-8) % Eos % (Auto) (1.0-3.0) % Baso % (Auto) (0.0-1.0) % Sodium (135-145) mmol/L Potassium (3.6-5.0) mmol/L Chloride (101-111) mmol/L Carbon Dioxide (21.0-31.0) mmol/L Anion Gap BUN (7-18) mg/dL Creatinine (0.6-1.3) mg/dL Est Cr Clr Drug Dosing mL/min Estimated GFR (MDRD) BUN/Creatinine Ratio Glucose (74-105) mg/dL Calcium (8.4-10.2) mg/dl Total Bilirubin (0.2-1.0) mg/dL AST (10-42) IU/L ALT (10-60) IU/L Alkaline Phosphatase (42-121) IU/L Creatine Kinase 48 (26-174) IU/L Creatine Kinase Index 6.0 H (0-2.4) % CK-MB (CK-2) 2.90 (0.4-4.7) ng/mL Troponin I (0.00-0.02) ng/ml B-Natriuretic Peptide (0-100) pg/ml Total Protein (6.7-8.2) g/dl Albumin (3.2-5.5) g/dl Globulin Albumin/Globulin Ratio Urine Color (YELLOW) Urine Appearance (CLEAR) Urine pH (5.0-9.0) Ur Specific [place] (1.005-1.030) Urine Protein (NEGATIVE) Urine Glucose (UA) (NEGATIVE) Urine Ketones (NEGATIVE) Urine Occult Blood (NEGATIVE) Urine Nitrite (NEGATIVE) Urine Bilirubin (NEGATIVE) Urine Urobilinogen (0.2-1.0) mg/dL Ur Leukocyte Esterase (NEGATIVE) Urine RBC /HPF Urine WBC (0-5/HPF) /HPF Ur Epithelial Cells /HPF Calcium Oxalate Crystal /HPF Amorphous Sediment (0/HPF) /HPF Urine Bacteria (0-FEW/HPF) /HPF Granular Casts /LPF Urine Mucus /LPF Urine Opiates Screen Negative (NEGATIVE) Ur Oxycodone Screen Negative (NEGATIVE) Urine Methadone Screen Negative (NEGATIVE) Ur Barbiturates Screen Negative (NEGATIVE) U Tricyclic Antidepress Negative (NEGATIVE) Ur Phencyclidine Scrn Negative (NEGATIVE) Ur Amphetamine Screen Positive H (NEGATIVE) U Methamphetamines Scrn Positive H (NEGATIVE) Urine MDMA Screen Negative (NEGATIVE) U Benzodiazepines Scrn Positive H (NEGATIVE) Urine Cocaine Screen Negative (NEGATIVE) U Marijuana (THC) Screen Positive H (NEGATIVE) Ethyl Alcohol mg/dL Meds: Medications Generic Name Dose Route Start Last Admin Trade Name Freq PRN Reason Stop Dose Admin Sodium Chloride 10 ml 05/18/17 07:18 05/18/17 07:48 Saline Flush FLUSH 10 ml ASDIRECTED PRN Administration Keep Vein Open Discontinued Medications Generic Name Dose Route Start Last Admin Trade Name Freq PRN Reason Stop Dose Admin Aspirin 324 mg 05/18/17 07:38 05/18/17 07:48 Aspirin PO 05/18/17 07:39 324 mg ONETIME ONE Administration Ceftriaxone Sodium 1 gm 05/18/17 08:17 05/18/17 08:27 Rocephin IVPUSH 05/18/17 08:18 1 gm ONETIME ONE Administration Furosemide 40 mg 05/18/17 07:20 05/18/17 07:26 Lasix IVPUSH 05/18/17 07:21 40 mg NOW ONE Administration Lorazepam 1 mg 05/18/17 07:19 05/18/17 07:26 Ativan IVPUSH 05/18/17 07:20 1 mg ONETIME ONE Administration Lorazepam 1 mg 05/18/17 08:14 05/18/17 08:27 Ativan IVPUSH 05/18/17 08:15 1 mg ONETIME ONE Administration Ondansetron HCl 4 mg 05/18/17 07:39 05/18/17 07:48 Zofran IV 05/18/17 07:40 4 mg ONETIME ONE Administration - Radiology Interpretation Free Text/Narrative:: CXR: unchanged from 05/12/17 w/cardiomegaly and prominent proximal pulmonary arteries per Rad. report. Departure - Departure Time of Disposition: 08:32 Disposition: DC/Tfer to Acute Hospital 02 Condition: Serious Clinical Impression: NSTEMI (non-ST elevated myocardial infarction), Chronic alcohol abuse, Polysubstance abuse, Noncompliance with medication regimen, Methamphetamine abuse Acute exacerbation of CHF (congestive heart failure) Qualifiers: Heart failure type: unspecified Qualified Code(s): I50.9 - Heart failure, unspecified Alcohol withdrawal Qualifiers: Complication of substance-induced condition: uncomplicated Qualified Code(s): F10.230 - Alcohol dependence with withdrawal, uncomplicated UTI (urinary tract infection) Qualifiers: Urinary tract infection type: site unspecified Hematuria presence: with hematuria Qualified Code(s): N39.0 - Urinary tract infection, site not specified ; R31.9 - Hematuria, unspecified; R31.9 - Hematuria, unspecified - Discharge Information Forms: ED Department Discharge, Interfacility Transfer EMTALA - My Orders Last 24 Hours: My Active Orders 05/18/17 07:18 EKG 12 Lead [EKG Documentation Completion] [RC] STAT Chest 1V Frontal [CR] Stat Sodium Chloride 0.9% [Saline Flush] 10 ml FLUSH ASDIRECTED PRN Peripheral IV Insertion Adult [OM.PC] Stat 05/18/17 07:19 Peripheral IV Care [RC] . DIRECTED 05/18/17 08:16 CULTURE URINE [RM] Stat - Assessment/Plan Last 24 Hours: My Active Orders 05/18/17 07:18 EKG 12 Lead [EKG Documentation Completion] [RC] STAT Chest 1V Frontal [CR] Stat Sodium Chloride 0.9% [Saline Flush] 10 ml FLUSH ASDIRECTED PRN Peripheral IV Insertion Adult [OM.PC] Stat 05/18/17 07:19 Peripheral IV Care [RC] . DIRECTED 05/18/17 08:16 CULTURE URINE [RM] Stat
[2017-05-18] MEDS ORDERED: LORazepam 2 MG/ML Syringe IVPUSH ONE ×2 (07:19→08:14)
[2017-05-18] MEDS ORDERED: Furosemide 40 MG/4 ML VIAL IVPUSH ONE (07:20)
[2017-05-18 07:22] VITALS: BP 116/88
[2017-05-18] MEDS: Sodium Chloride 0.9% 10 ML Syringe FLUSH PRN ×2 (07:26→07:48)
[2017-05-18] MEDS ORDERED: Aspirin 81 MG Tab.Chew PO ONE (07:38)
[2017-05-18] MEDS ORDERED: Ondansetron 4 MG/2 ML SDV IV ONE (07:39)
[2017-05-18 07:45] LABS: CHLORIDE,CL 103 mmol/L (101-111); SODIUM,NA 136 mmol/L (135-145)
[2017-05-18] MEDS ORDERED: cefTRIAXone 1 GM Vial IVPUSH ONE (08:17)
--- NOTE | 2017-05-18 08:34 | CR ---
Clinical history: 52-year-old male chest pain. Interpretation: Abnormal but unchanged except for technique when compared to PA film of 12 May 2017 and previous AP film 26 April 2017. Abnormally enlarged cardiac silhouette and symmetrically prominent proximal pulmonary arteries. No new signs of alveolar edema or dependent pleural fluid accumulation. No new lung mass, hilar lymphadenopathy or focal lobar pneumonia. No atelectasis/collapse. No pneumothorax. Conclusion: Chronically abnormal chest. (See above)
--- NOTE | 2017-05-20 09:25 | EKG ---
05/18/2017- MANNIE MEREDITH - EKG per my reading shows sinus tachycardia with ventricular paced rhythm. [facility] /[id number]
== END 2017-05-18 09:00 ==
LOC: DL.ED 07:13
DX: I21.4 Non-ST elevation (NSTEMI) myocardial infarction (principal); I11.0 Hypertensive heart disease with heart failure; I50.9 Heart failure, unspecified; F19.10 Other psychoactive substance abuse, uncomplicated; F10.230 Alcohol dependence with withdrawal, uncomplicated; N39.0 Urinary tract infection, site not specified; F17.210 Nicotine dependence, cigarettes, uncomplicated; Z79.899 Other long term (current) drug therapy
CPT/HCPCS: 36415; 71045; 80053; 80305; 81001; 82550; 82553; 83880; 84484; 85025; 87086; 93005; 96374; 96375; 99285; A9270; G0480; J0696; J1940; J2060; J2405; J7050

== ENCOUNTER 2017-05-26 06:40 | Emergency (ER) | payer MEDICAID, OTHER ==
--- NOTE | 2017-05-26 07:27 | EDM.PDOC ---
ED HPI GENERAL MEDICAL PROBLEM - General Chief Complaint: Abdominal Pain Stated Complaint: BY AMBULANCE Time Seen by Provider: 05/26/17 07:00 Source of Information: Reports: Patient, EMS, RN, RN Notes Reviewed History Limitations: Reports: No Limitations - History of Present Illness INITIAL COMMENTS - FREE TEXT/NARRATIVE: Jonathan is a 52 yo male who presents to the ED per EMS due to mid abdominal pain that started 3-4 months ago but got significantly worse around 1500 yesterday. He reports that he has been nauseated and vomited x5 since 1 am. Patient reports that the pain is constant since onset yesterday afternoon. Describing the pain as cramping. He relates that he has been short of breath and has had a non-productive cough. Denies chest pain, fever, or lower extremity swelling. Reports dysuria and right sided flank pain. Denies hematuria , diarrhea, constipation, or blood in his stools. Nothing makes his pain better or worse. He relates that he has been eating and drinking fluids without difficulty. He admits to meth use 2 days ago after being discharged from the hospital. He reports that he has been taking his Lasix. Onset Date: 05/25/17 Duration: Getting Worse Location: Reports: Abdomen Quality: Reports: Other (Cramping ) Severity: Moderate Improves with: Reports: None Worsens with: Reports: None Associated Symptoms: Reports: Cough, Nausea/Vomiting, Shortness of Breath Left Abdominal Pain Score (Numeric/FACES): 8 - Related Data Allergies Allergy/AdvReac Type Severity Reaction Status Date / Time No Known Allergies Allergy Verified 05/18/17 07:16 Home Meds: Home Meds Carvedilol [Coreg] 6.25 mg PO BIDMEALS 10/18/15 [History] Furosemide [Lasix] 40 mg PO Q12H 30 Days #60 tablet 04/20/17 [Rx] Lisinopril 2.5 mg PO DAILY #30 04/20/17 [Rx] Omeprazole 20 mg PO ACBREAKFAST 30 Days #30 cap.cr 04/20/17 [Rx] Potassium Chloride [Klor-Con 10] 20 meq PO DAILY #30 tab.er 04/20/17 [Rx] Sertraline [Zoloft] 50 mg PO DAILY 30 Days #30 tablet 04/20/17 [Rx] Spironolactone [Aldactone] 25 mg PO DAILY 30 Days #30 tablet 02/12/18 [Rx] Past Medical History - Past Health History Medical/Surgical History: Denies Medical/Surgical History HEENT History: Reports: None Cardiovascular History: Reports: Cardiomyopathy, Heart Failure, Hypertension, Pacemaker Respiratory History: Reports: SOB Gastrointestinal History: Reports: Gastritis, GERD Genitourinary History: Reports: Other (See Below) Other Genitourinary History: liver issues r/t ETOH Musculoskeletal History: Reports: Arthritis, Other (See Below) Other Musculoskeletal History: torn left and right upper arm tendon. missed surgery 03/2017 Neurological History: Reports: None Psychiatric History: Reports: Addiction, Anxiety, Panic Attack Other Psychiatric History: Pt states that he has been in treatment for alcoholism many times, last times 10 years ago, and he quit drinking for 8 years Endocrine/Metabolic History: Reports: None Hematologic History: Reports: None Immunologic History: Reports: None Oncologic (Cancer) History: Reports: None Dermatologic History: Reports: None - Infectious Disease History Infectious Disease History: Reports: None - Past Surgical History Head Surgeries/Procedures: Reports: None Cardiovascular Surgical History: Reports: Percutaneous Transluminal Angioplasty GI Surgical History: Reports: None Male Surgical History: Reports: None Musculoskeletal Surgical History: Reports: None Social & Family History - Family History Family Medical History: Noncontributory Cardiac: Reports: Hypertension Other Cardiac Family History: Dad and paternal grandmother have hypertension. Respiratory: Reports: Asthma Other Respiratory Family Hisory: Mom and dad have asthma. Endocrine/Metabolic: Reports: Diabetes, Type I Other Endocrine/Metabolic Family History: Dad and paternal grandmother have type I diabetes. - Tobacco Use Smoking Status *Q: Current Some Day Smoker Years of Tobacco use: 10 Packs/Tins Daily: 0.5 Used Tobacco, but Quit: No Second Hand Smoke Exposure: Yes - Caffeine Use Caffeine Use: Reports: Coffee, Soda - Alcohol Use Days Per Week of Alcohol Use: 1 Number of Drinks Per Day: 10 Total Drinks Per Week: 10 - Recreational Drug Use Recreational Drug Use: Yes Drug Use in Last 12 Months: Yes Recreational Drug Type: Reports: Marijuana/Hashish, Methamphetamine, Oxycodone Other Recreational Drug Type: patient states he has not used recreational drugs for the last 4 weeks. Recreational Drug Use Frequency: Weekly Recreational Drug Last Use: few days ago - Living Situation & Occupation Living situation: Reports: with Family ED ROS GENERAL - Review of Systems Review Of Systems: ROS reveals no pertinent complaints other than HPI. ED EXAM, GI/ABD - Physical Exam Exam: See Below Exam Limited By: No Limitations General Appearance: Alert, WD/WN, No Apparent Distress Eyes: Bilateral: Normal Appearance, EOMI Ears: Normal External Exam, Normal Canal, Hearing Grossly Normal, Normal TMs Nose: Normal Inspection, Normal Mucosa, No Blood Throat/Mouth: Normal Inspection, Normal Lips, Normal Teeth, Normal Gums, Normal Oropharynx, Normal Voice, No Airway Compromise Head: Atraumatic, Normocephalic Neck: Normal Inspection, Supple, Non-Tender, Full Range of Motion Respiratory/Chest: No Accessory Muscle Use, Chest Non-Tender, Other (Coarse lung sounds noted throughout. ) Cardiovascular: Normal Peripheral Pulses, Regular Rate, Rhythm, No Edema, Other (Murmur present to mitral valve area. ) GI/Abdominal Exam: Normal Bowel Sounds, Soft, No Organomegaly, No Distention, No Abnormal Bruit, Tender (Tenderness present to mid abd. ), Other (Scattered brusing noted to abd, patient reports that he was recieving injections in his abd in the hospital) (Male) Exam: Deferred Rectal (Males) Exam: Deferred Back Exam: Normal Inspection, Full Range of Motion, NT Extremities: Normal Inspection, Normal Range of Motion, Non-Tender, Normal Capillary Refill, No Pedal Edema Neurological: Alert, Oriented, CN II-XII Intact, Normal Cognition, Normal Gait, Normal Reflexes, No Motor/Sensory Deficits Psychiatric: Normal Affect, Normal Mood Skin Exam: Warm, Dry, Intact, Normal Color, No Rash Lymphatic: No Adenopathy EKG INTERPRETATION EKG Date: 05/26/17 Time: 07:23 Rhythm: Other (Paced) Rate (Beats/Min): 92 Comparison: No Change Course - Vital Signs Last Recorded V/S: Last Vital Signs Temp 36.6 C 05/26/17 06:57 Pulse 95 05/26/17 06:57 Resp 24 H 05/26/17 06:57 BP 114/85 05/26/17 09:08 Pulse Ox 98 05/26/17 06:57 - Orders/Labs/Meds Labs: Laboratory Tests 05/26/17 05/26/17 05/26/17 Range/Units 07:28 07:28 07:28 WBC 6.7 (5.0-10.0) 10^3/uL RBC 4.61 (4.6-6.2) 10^6/uL Hgb 13.0 L (14.0-18.0) g/dL Hct 40.3 (40.0-54.0) % MCV 87.4 (80-100) fL MCH 28.2 (27.0-34.0) pg MCHC 32.3 L (33.0-35.0) g/dL Plt Count 229 (150-450) 10^3/uL Neut % (Auto) 71.5 (42.2-75.2) % Lymph % (Auto) 15.6 L (20.5-50.1) % [place] % (Auto) 10.0 H (2-8) % Eos % (Auto) 2.5 (1.0-3.0) % Baso % (Auto) 0.4 (0.0-1.0) % Sodium (135-145) mmol/L Potassium (3.6-5.0) mmol/L Chloride (101-111) mmol/L Carbon Dioxide (21.0-31.0) mmol/L Anion Gap BUN (7-18) mg/dL Creatinine (0.6-1.3) mg/dL Est Cr Clr Drug Dosing mL/min Estimated GFR (MDRD) BUN/Creatinine Ratio Glucose (74-105) mg/dL Calcium (8.4-10.2) mg/dl Magnesium 1.8 (1.8-2.5) mg/dL Total Bilirubin (0.2-1.0) mg/dL AST (10-42) IU/L ALT (10-60) IU/L Alkaline Phosphatase (42-121) IU/L Ammonia 10 L (11-35) umol/L Troponin I (0.00-0.02) ng/ml B-Natriuretic Peptide 3500 H (0-100) pg/ml Total Protein (6.7-8.2) g/dl Albumin (3.2-5.5) g/dl Globulin Albumin/Globulin Ratio Amylase 59 (28-100) U/L Lipase 13 L (22-51) U/L Urine Color (YELLOW) Urine Appearance (CLEAR) Urine pH (5.0-9.0) Ur Specific Williams (1.005-1.030) Urine Protein (NEGATIVE) Urine Glucose (UA) (NEGATIVE) Urine Ketones (NEGATIVE) Urine Occult Blood (NEGATIVE) Urine Nitrite (NEGATIVE) Urine Bilirubin (NEGATIVE) Urine Urobilinogen (0.2-1.0) mg/dL Ur Leukocyte Esterase (NEGATIVE) Urine RBC /HPF Urine WBC (0-5/HPF) /HPF Ur Epithelial Cells /HPF Amorphous Sediment (0/HPF) /HPF Urine Bacteria (0-FEW/HPF) /HPF Urine Mucus /LPF Salicylates < 4 Urine Opiates Screen (NEGATIVE) Ur Oxycodone Screen (NEGATIVE) Urine Methadone Screen (NEGATIVE) Acetaminophen < 10 Ur Barbiturates Screen (NEGATIVE) U Tricyclic Antidepress (NEGATIVE) Ur Phencyclidine Scrn (NEGATIVE) Ur Amphetamine Screen (NEGATIVE) U Methamphetamines Scrn (NEGATIVE) Urine MDMA Screen (NEGATIVE) U Benzodiazepines Scrn (NEGATIVE) Urine Cocaine Screen (NEGATIVE) U Marijuana (THC) Screen (NEGATIVE) Ethyl Alcohol < 5 mg/dL 05/26/17 05/26/17 05/26/17 Range/Units 07:28 07:36 07:36 WBC (5.0-10.0) 10^3/uL RBC (4.6-6.2) 10^6/uL Hgb (14.0-18.0) g/dL Hct (40.0-54.0) % MCV (80-100) fL MCH (27.0-34.0) pg MCHC (33.0-35.0) g/dL Plt Count (150-450) 10^3/uL Neut % (Auto) (42.2-75.2) % Lymph % (Auto) (20.5-50.1) % [place] % (Auto) (2-8) % Eos % (Auto) (1.0-3.0) % Baso % (Auto) (0.0-1.0) % Sodium 138 (135-145) mmol/L Potassium 3.9 (3.6-5.0) mmol/L Chloride 102 (101-111) mmol/L Carbon Dioxide 26.0 (21.0-31.0) mmol/L Anion Gap 13.9 BUN 15 (7-18) mg/dL Creatinine 0.8 (0.6-1.3) mg/dL Est Cr Clr Drug Dosing 110.47 mL/min Estimated GFR (MDRD) > 60 BUN/Creatinine Ratio 18.75 Glucose 115 H (74-105) mg/dL Calcium 8.8 (8.4-10.2) mg/dl Magnesium (1.8-2.5) mg/dL Total Bilirubin 1.9 H (0.2-1.0) mg/dL AST 26 (10-42) IU/L ALT 12 (10-60) IU/L Alkaline Phosphatase 87 (42-121) IU/L Ammonia (11-35) umol/L Troponin I 0.03 H* (0.00-0.02) ng/ml B-Natriuretic Peptide (0-100) pg/ml Total Protein 8.2 (6.7-8.2) g/dl Albumin 3.2 (3.2-5.5) g/dl Globulin 5.0 Albumin/Globulin Ratio 0.64 Amylase (28-100) U/L Lipase (22-51) U/L Urine Color Suad (YELLOW) Urine Appearance Clear (CLEAR) Urine pH 5.5 (5.0-9.0) Ur Specific Williams >= 1.030 (1.005-1.030) Urine Protein 100 H (NEGATIVE) Urine Glucose (UA) Negative (NEGATIVE) Urine Ketones Negative (NEGATIVE) Urine Occult Blood Trace-intact H (NEGATIVE) Urine Nitrite Negative (NEGATIVE) Urine Bilirubin Moderate H (NEGATIVE) Urine Urobilinogen >=8.0 H (0.2-1.0) mg/dL Ur Leukocyte Esterase Negative (NEGATIVE) Urine RBC 0-5 /HPF Urine WBC 0-5 (0-5/HPF) /HPF Ur Epithelial Cells Few /HPF Amorphous Sediment Few (0/HPF) /HPF Urine Bacteria Rare (0-FEW/HPF) /HPF Urine Mucus Many H /LPF Salicylates Urine Opiates Screen Negative (NEGATIVE) Ur Oxycodone Screen Positive H (NEGATIVE) Urine Methadone Screen Negative (NEGATIVE) Acetaminophen Ur Barbiturates Screen Negative (NEGATIVE) U Tricyclic Antidepress Negative (NEGATIVE) Ur Phencyclidine Scrn Negative (NEGATIVE) Ur Amphetamine Screen Negative (NEGATIVE) U Methamphetamines Scrn Positive H (NEGATIVE) Urine MDMA Screen Negative (NEGATIVE) U Benzodiazepines Scrn Positive H (NEGATIVE) Urine Cocaine Screen Negative (NEGATIVE) U Marijuana (THC) Screen Positive H (NEGATIVE) Ethyl Alcohol mg/dL Meds: Medications Discontinued Medications Generic Name Dose Route Start Last Admin Trade Name Walter PRN Reason Stop Dose Admin Iopamidol 75 ml 05/26/17 08:06 05/26/17 08:44 Isovue-300 (61%) IVPUSH 05/26/17 08:07 75 ml ONETIME ONE Administration Ondansetron HCl 4 mg 05/26/17 07:30 05/26/17 07:40 Zofran IV 05/26/17 07:31 4 mg ONETIME ONE Administration Departure - Departure Time of Disposition: 10:06 Disposition: Home, Self-Care 01 Condition: Good Clinical Impression: Abdominal pain in male, Polysubstance abuse Abdominal pain Qualifiers: Abdominal location: right upper quadrant Qualified Code(s): R10.11 - Right upper quadrant pain - Discharge Information Referrals: PCP,Unobtain [Primary Care Provider] - Forms: ED Department Discharge Care Plan Goals: Labs, X-ray, CT scan, and EKG reviewed with patient at this time. I recommend that you stop using drugs as they are causing severe adverse affects on your body. Follow-up with your primary care facility regarding your abdominal pain. Return to the ER if you experience severe symptoms or for other concerns.
[2017-05-26] MEDS ORDERED: Ondansetron 4 MG/2 ML SDV IV ONE (07:30)
[2017-05-26 07:56] LABS: CHLORIDE,CL 102 mmol/L (101-111); SODIUM,NA 138 mmol/L (135-145)
[2017-05-26 08:05] LABS: ACETAMINOPHEN < 10
[2017-05-26] MEDS ORDERED: Iopamidol 612 MG/ML 75 ML Bottle IVPUSH ONE (08:06)
[2017-05-26 09:08] VITALS: BP 114/85
--- NOTE | 2017-05-26 09:25 | CR ---
Clinical history: 52-year-old male chest discomfort. Interpretation: Markedly abnormal but... unchanged, except for inspiratory effort and technique when compared directly back most recent 12 May and 18 May 2017 films. No new signs of alveolar edema, dependent pleural effusion, lung mass, hilar lymphadenopathy or focal lobar pneumonia. Chronically enlarged cardiac silhouette and prominent proximal pulmonary artery segments. Cardiac pacemaker leads intact and unchanged.
--- NOTE | 2017-05-26 11:21 | CT ---
Clinical history: 52-year-old male smoker with history of drug abuse and now midepigastric pain. No k nown recent trauma and pancreatic enzymes "normal" this patient who had right colon surgery age 26. Scan technique: Volume acquisition of data abdomen and pelvis obtained without oral contrast but duri ng/after intravenous infusion 75 cc nonionic Isovue contrast while patient was lying supine on the [employer] multi slice scanner [place], [place]. All data archived in the [employer] system for storage, reformatting axial/sagittal/coronal planes and study. Note: Extremely poor cardiac output i.e. IV contrast observed still in the heart and abdominal aorta at 2 minutes postinjection. Interpretation: 1. Huge cardiac silhouette (cardiomyopathy) and cardiac pacemaker leads. No pericardial or dependent pleural effusion. 2. Distended gallbladder without stones or biliary duct obstruction. Liver, stomach, spleen, pancreas and adrenal glands negative. 3. No nephrolithiasis or obstructive uropathy and renal nephrogram reveals no sign of cystic or solid cortical mass lesion. 4.*Subtle ventral wall defect mid epigastrium, right of midline, with some adjacent subcutaneous "dir ty fat" suggesting possible recent herniation (no current signs of incarcerated small bowel or mechan ical bowel obstruction. Recently reduced hernia? 5. No abdominal or pelvic mass lesion, inflammatory "dirty" intraperitoneal fat, mesenteric/retroperi toneal lymphadenopathy, ascites or free intraperitoneal air. Normal caliber aortoiliac vessels i.e. n o sign of aneurysm or dissection. Surgical sutures. 6. Chronic severe multilevel lower lumbar disc disease with associated hypertrophic arthritic changes L4-5 L5-S1 levels. CONCLUSION: Subtle antral wall defect epigastrium. (See above) Severe cardiomyopathy and poor cardia c output.
--- NOTE | 2017-05-27 06:10 | EKG ---
05/26/2017 - MANNIE MEREDITH - FINDINGS: This 12-lead EKG shows an atrial-sensed and ventricular-paced rhythm with a ventricular rate of 92. No other comments are made due to the presence of pacemaker. MODL /[id number] MTDD
== END 2017-05-26 10:15 | disposition home or self-care (01) ==
LOC: DL.ED 06:40
DX: R10.11 Right upper quadrant pain (principal); F19.10 Other psychoactive substance abuse, uncomplicated; R11.2 Nausea with vomiting, unspecified; F17.210 Nicotine dependence, cigarettes, uncomplicated; I11.0 Hypertensive heart disease with heart failure; I50.9 Heart failure, unspecified; Z79.899 Other long term (current) drug therapy
CPT/HCPCS: 36415; 71046; 74177; 80053; 80305; 81001; 82140; 82150; 83690; 83735; 83880; 84484; 85025; 93005; 96374; 99285; G0480; J2405; Q9967

== ENCOUNTER 2017-06-20 01:47 | Emergency (ER) | payer MEDICAID, OTHER ==
--- NOTE | 2017-06-20 01:55 | EDM.PDOC ---
ED HPI GENERAL MEDICAL PROBLEM - General Chief Complaint: Respiratory Problem Stated Complaint: IN BY AMBULANCE Time Seen by Provider: 06/20/17 01:51 Source of Information: Reports: Patient, EMS History Limitations: Reports: No Limitations - History of Present Illness INITIAL COMMENTS - FREE TEXT/NARRATIVE: ED via [facility] with c/o difficulty breathing for past 4 days, started with cold. States he has been taking his medications. Denies meth, cannibas or ETOH for past 2 weeks. States quit to be able to get shoulder surgery Admits percocet 2 days ago for anxiety. Has had chills. EMS reports on arrival sats in 60's, improved with nebulizer. Patient notes sx worseening with walks to store past couple of days Left Chest Pain Score (Numeric/FACES): 7 - Related Data Allergies Allergy/AdvReac Type Severity Reaction Status Date / Time No Known Allergies Allergy Verified 05/18/17 07:16 Home Meds: Home Meds Carvedilol [Coreg] 6.25 mg PO BIDMEALS 10/18/15 [History] Furosemide [Lasix] 40 mg PO Q12H 30 Days #60 tablet 04/20/17 [Rx] Lisinopril 2.5 mg PO DAILY #30 04/20/17 [Rx] Omeprazole 20 mg PO ACBREAKFAST 30 Days #30 cap.cr 04/20/17 [Rx] Potassium Chloride [Klor-Con 10] 20 meq PO DAILY #30 tab.er 04/20/17 [Rx] Sertraline [Zoloft] 50 mg PO DAILY 30 Days #30 tablet 04/20/17 [Rx] Spironolactone [Aldactone] 25 mg PO DAILY 30 Days #30 tablet 04/20/17 [Rx] Past Medical History - Past Health History Medical/Surgical History: Denies Medical/Surgical History HEENT History: Reports: None Cardiovascular History: Reports: Cardiomyopathy, Heart Failure, Hypertension, Pacemaker Respiratory History: Reports: SOB Gastrointestinal History: Reports: Gastritis, GERD Genitourinary History: Reports: Other (See Below) Other Genitourinary History: liver issues r/t ETOH Musculoskeletal History: Reports: Arthritis, Other (See Below) Other Musculoskeletal History: torn left and right upper arm tendon. missed surgery 03/2017 Neurological History: Reports: None Psychiatric History: Reports: Addiction, Anxiety, Panic Attack Other Psychiatric History: Pt states that he has been in treatment for alcoholism many times, last times 10 years ago, and he quit drinking for 8 years Endocrine/Metabolic History: Reports: None Hematologic History: Reports: None Immunologic History: Reports: None Oncologic (Cancer) History: Reports: None Dermatologic History: Reports: None - Infectious Disease History Infectious Disease History: Reports: None - Past Surgical History Head Surgeries/Procedures: Reports: None Cardiovascular Surgical History: Reports: Percutaneous Transluminal Angioplasty GI Surgical History: Reports: None Male Surgical History: Reports: None Musculoskeletal Surgical History: Reports: None Social & Family History - Family History Family Medical History: Noncontributory Cardiac: Reports: Hypertension Other Cardiac Family History: Dad and paternal grandmother have hypertension. Respiratory: Reports: Asthma Other Respiratory Family Hisory: Mom and dad have asthma. Endocrine/Metabolic: Reports: Diabetes, Type I Other Endocrine/Metabolic Family History: Dad and paternal grandmother have type I diabetes. - Tobacco Use Smoking Status *Q: Current Some Day Smoker Years of Tobacco use: 10 Packs/Tins Daily: 0.5 Used Tobacco, but Quit: No Second Hand Smoke Exposure: Yes - Caffeine Use Caffeine Use: Reports: Coffee, Soda - Alcohol Use Days Per Week of Alcohol Use: 1 Number of Drinks Per Day: 10 Total Drinks Per Week: 10 - Recreational Drug Use Recreational Drug Use: Yes Drug Use in Last 12 Months: Yes Recreational Drug Type: Reports: Marijuana/Hashish, Methamphetamine, Oxycodone Other Recreational Drug Type: patient states he has not used recreational drugs for the last 4 weeks. Recreational Drug Use Frequency: Weekly Recreational Drug Last Use: few days ago - Living Situation & Occupation Living situation: Reports: with Family ED ROS GENERAL - Review of Systems Review Of Systems: See Below Constitutional: Reports: Chills, Malaise, Decreased Appetite HEENT: Reports: Throat Pain Respiratory: Reports: Shortness of Breath, Cough, Sputum (green) Cardiovascular: Reports: Dyspnea on Exertion. Denies: Chest Pain, Edema, Orthopnea GI/Abdominal: Reports: Decreased Appetite, Nausea : Reports: No Symptoms Musculoskeletal: Reports: Shoulder Pain (right ) Skin: Reports: No Symptoms Neurological: Reports: No Symptoms Psychiatric: Reports: Anxiety ED EXAM, GENERAL - Physical Exam Exam: See Below Exam Limited By: No Limitations General Appearance: Alert, Mild Distress Eye Exam: Bilateral Eye: EOMI (mild scleral icterus) Ears: Normal External Exam Nose: Normal Inspection Throat/Mouth: Normal Inspection Neck: Normal Inspection Respiratory/Chest: Rhonchi (coarse throughout left) Cardiovascular: Normal Peripheral Pulses, Regular Rate, Rhythm, No Edema GI/Abdominal: Normal Bowel Sounds Back Exam: Normal Inspection Extremities: Normal Inspection, Normal Range of Motion Neurological: Alert, Oriented, Normal Cognition Psychiatric: Normal Affect Skin Exam: Dry, Intact, Normal Color, Cool EKG INTERPRETATION Rhythm: NSR Course - Vital Signs Last Recorded V/S: Last Vital Signs Temp 96.7 F 06/20/17 01:54 Pulse 96 06/20/17 01:54 Resp 17 06/20/17 01:54 BP 108/69 06/20/17 01:54 Pulse Ox 98 06/20/17 03:23 - Orders/Labs/Meds Orders: Active Orders 24 hr Category Date Time Status EKG 12 Lead [EKG Documentation Completion] [RC] URGENT Care 06/20/17 01:54 Active CXR [Chest 1V Frontal] [CR] Urgent Exams 06/20/17 01:52 Taken CULTURE BLOOD [BC] Stat Lab 06/20/17 02:26 Received Labs: Laboratory Tests 06/20/17 06/20/17 06/20/17 Range/Units 01:58 01:58 01:58 WBC 6.7 (5.0-10.0) 10^3/uL RBC 4.83 (4.6-6.2) 10^6/uL Hgb 13.7 L (14.0-18.0) g/dL Hct 41.8 (40.0-54.0) % MCV 86.5 (80-100) fL MCH 28.4 (27.0-34.0) pg MCHC 32.8 L (33.0-35.0) g/dL Plt Count 211 (150-450) 10^3/uL Neut % (Auto) 67.0 (42.2-75.2) % Lymph % (Auto) 22.6 (20.5-50.1) % [place] % (Auto) 8.1 H (2-8) % Eos % (Auto) 1.0 (1.0-3.0) % Baso % (Auto) 1.3 H (0.0-1.0) % Sodium 131 L (135-145) mmol/L Potassium 3.2 L (3.6-5.0) mmol/L Chloride 93 L (101-111) mmol/L Carbon Dioxide 26.0 (21.0-31.0) mmol/L Anion Gap 15.2 BUN 30 H (7-18) mg/dL Creatinine 1.3 (0.6-1.3) mg/dL Est Cr Clr Drug Dosing 67.98 mL/min Estimated GFR (MDRD) 58 BUN/Creatinine Ratio 23.07 Glucose 116 H (74-105) mg/dL Lactic Acid (0.5-2.2) mmol/L Calcium 9.2 (8.4-10.2) mg/dl Total Bilirubin 3.7 H (0.2-1.0) mg/dL AST 55 H (10-42) IU/L ALT 33 (10-60) IU/L Alkaline Phosphatase 90 (42-121) IU/L Ammonia (11-35) umol/L Troponin I 0.04 H* (0.00-0.02) ng/ml B-Natriuretic Peptide 2860 H (0-100) pg/ml Total Protein 8.6 H (6.7-8.2) g/dl Albumin 3.3 (3.2-5.5) g/dl Globulin 5.3 Albumin/Globulin Ratio 0.62 Urine Color (YELLOW) Urine Appearance (CLEAR) Urine pH (5.0-9.0) Ur Specific [place] (1.005-1.030) Urine Protein (NEGATIVE) Urine Glucose (UA) (NEGATIVE) Urine Ketones (NEGATIVE) Urine Occult Blood (NEGATIVE) Urine Nitrite (NEGATIVE) Urine Bilirubin (NEGATIVE) Urine Urobilinogen (0.2-1.0) mg/dL Ur Leukocyte Esterase (NEGATIVE) Urine RBC /HPF Urine WBC (0-5/HPF) /HPF Ur Epithelial Cells /HPF Amorphous Sediment (0/HPF) /HPF Urine Bacteria (0-FEW/HPF) /HPF Fine Granular Casts (0/LPF) /LPF Urine Mucus /LPF Urine Other Urine Opiates Screen (NEGATIVE) Ur Oxycodone Screen (NEGATIVE) Urine Methadone Screen (NEGATIVE) Ur Barbiturates Screen (NEGATIVE) U Tricyclic Antidepress (NEGATIVE) Ur Phencyclidine Scrn (NEGATIVE) Ur Amphetamine Screen (NEGATIVE) U Methamphetamines Scrn (NEGATIVE) Urine MDMA Screen (NEGATIVE) U Benzodiazepines Scrn (NEGATIVE) Urine Cocaine Screen (NEGATIVE) U Marijuana (THC) Screen (NEGATIVE) Ethyl Alcohol < 5 mg/dL 06/20/17 06/20/17 06/20/17 Range/Units 02:09 02:09 02:26 WBC (5.0-10.0) 10^3/uL RBC (4.6-6.2) 10^6/uL Hgb (14.0-18.0) g/dL Hct (40.0-54.0) % MCV (80-100) fL MCH (27.0-34.0) pg MCHC (33.0-35.0) g/dL Plt Count (150-450) 10^3/uL Neut % (Auto) (42.2-75.2) % Lymph % (Auto) (20.5-50.1) % [place] % (Auto) (2-8) % Eos % (Auto) (1.0-3.0) % Baso % (Auto) (0.0-1.0) % Sodium (135-145) mmol/L Potassium (3.6-5.0) mmol/L Chloride (101-111) mmol/L Carbon Dioxide (21.0-31.0) mmol/L Anion Gap BUN (7-18) mg/dL Creatinine (0.6-1.3) mg/dL Est Cr Clr Drug Dosing mL/min Estimated GFR (MDRD) BUN/Creatinine Ratio Glucose (74-105) mg/dL Lactic Acid 3.1 H (0.5-2.2) mmol/L Calcium (8.4-10.2) mg/dl Total Bilirubin (0.2-1.0) mg/dL AST (10-42) IU/L ALT (10-60) IU/L Alkaline Phosphatase (42-121) IU/L Ammonia (11-35) umol/L Troponin I (0.00-0.02) ng/ml B-Natriuretic Peptide (0-100) pg/ml Total Protein (6.7-8.2) g/dl Albumin (3.2-5.5) g/dl Globulin Albumin/Globulin Ratio Urine Color Dark yellow (YELLOW) Urine Appearance Slightly cloudy (CLEAR) Urine pH 5.0 (5.0-9.0) Ur Specific [place] >= 1.030 (1.005-1.030) Urine Protein >=300 H (NEGATIVE) Urine Glucose (UA) Negative (NEGATIVE) Urine Ketones Negative (NEGATIVE) Urine Occult Blood Negative (NEGATIVE) Urine Nitrite Negative (NEGATIVE) Urine Bilirubin Large H (NEGATIVE) Urine Urobilinogen 4.0 H (0.2-1.0) mg/dL Ur Leukocyte Esterase Negative (NEGATIVE) Urine RBC 5-10 H /HPF Urine WBC 0-5 (0-5/HPF) /HPF Ur Epithelial Cells Few /HPF Amorphous Sediment Few (0/HPF) /HPF Urine Bacteria Few (0-FEW/HPF) /HPF Fine Granular Casts Moderate H (0/LPF) /LPF Urine Mucus Rare /LPF Urine Other Urine Opiates Screen Negative (NEGATIVE) Ur Oxycodone Screen Positive H (NEGATIVE) Urine Methadone Screen Negative (NEGATIVE) Ur Barbiturates Screen Negative (NEGATIVE) U Tricyclic Antidepress Negative (NEGATIVE) Ur Phencyclidine Scrn Negative (NEGATIVE) Ur Amphetamine Screen Negative (NEGATIVE) U Methamphetamines Scrn Negative (NEGATIVE) Urine MDMA Screen Negative (NEGATIVE) U Benzodiazepines Scrn Negative (NEGATIVE) Urine Cocaine Screen Negative (NEGATIVE) U Marijuana (THC) Screen Positive H (NEGATIVE) Ethyl Alcohol mg/dL 18 Range/Units 02:26 WBC (5.0-10.0) 10^3/uL RBC (4.6-6.2) 10^6/uL Hgb (14.0-18.0) g/dL Hct (40.0-54.0) % MCV (80-100) fL MCH (27.0-34.0) pg MCHC (33.0-35.0) g/dL Plt Count (150-450) 10^3/uL Neut % (Auto) (42.2-75.2) % Lymph % (Auto) (20.5-50.1) % [place] % (Auto) (2-8) % Eos % (Auto) (1.0-3.0) % Baso % (Auto) (0.0-1.0) % Sodium (135-145) mmol/L Potassium (3.6-5.0) mmol/L Chloride (101-111) mmol/L Carbon Dioxide (21.0-31.0) mmol/L Anion Gap BUN (7-18) mg/dL Creatinine (0.6-1.3) mg/dL Est Cr Clr Drug Dosing mL/min Estimated GFR (MDRD) BUN/Creatinine Ratio Glucose (74-105) mg/dL Lactic Acid (0.5-2.2) mmol/L Calcium (8.4-10.2) mg/dl Total Bilirubin (0.2-1.0) mg/dL AST (10-42) IU/L ALT (10-60) IU/L Alkaline Phosphatase (42-121) IU/L Ammonia 11 (11-35) umol/L Troponin I (0.00-0.02) ng/ml B-Natriuretic Peptide (0-100) pg/ml Total Protein (6.7-8.2) g/dl Albumin (3.2-5.5) g/dl Globulin Albumin/Globulin Ratio Urine Color (YELLOW) Urine Appearance (CLEAR) Urine pH (5.0-9.0) Ur Specific [place] (1.005-1.030) Urine Protein (NEGATIVE) Urine Glucose (UA) (NEGATIVE) Urine Ketones (NEGATIVE) Urine Occult Blood (NEGATIVE) Urine Nitrite (NEGATIVE) Urine Bilirubin (NEGATIVE) Urine Urobilinogen (0.2-1.0) mg/dL Ur Leukocyte Esterase (NEGATIVE) Urine RBC /HPF Urine WBC (0-5/HPF) /HPF Ur Epithelial Cells /HPF Amorphous Sediment (0/HPF) /HPF Urine Bacteria (0-FEW/HPF) /HPF Fine Granular Casts (0/LPF) /LPF Urine Mucus /LPF Urine Other Urine Opiates Screen (NEGATIVE) Ur Oxycodone Screen (NEGATIVE) Urine Methadone Screen (NEGATIVE) Ur Barbiturates Screen (NEGATIVE) U Tricyclic Antidepress (NEGATIVE) Ur Phencyclidine Scrn (NEGATIVE) Ur Amphetamine Screen (NEGATIVE) U Methamphetamines Scrn (NEGATIVE) Urine MDMA Screen (NEGATIVE) U Benzodiazepines Scrn (NEGATIVE) Urine Cocaine Screen (NEGATIVE) U Marijuana (THC) Screen (NEGATIVE) Ethyl Alcohol mg/dL Meds: Medications Discontinued Medications Generic Name Dose Route Start Last Admin Trade Name Freq PRN Reason Stop Dose Admin Furosemide 40 mg 06/20/17 02:32 06/20/17 02:47 Lasix IVPUSH 06/20/17 02:33 40 mg NOW ONE Administration Potassium Chloride 10 meq/ 100 mls @ 100 mls/hr 06/20/17 03:36 04/14/18 03:43 Premix IV 06/20/17 04:35 100 mls/hr ONETIME ONE Administration Sodium Chloride 250 mls @ 10 mls/hr 06/20/17 03:37 06/20/17 03:42 Normal Saline IV 06/21/17 04:36 10 mls/hr ASDIRECTED ONE Administration Lorazepam 1 mg 06/20/17 02:09 06/20/17 02:19 Ativan IVPUSH 06/20/17 02:10 1 mg ONETIME ONE Administration Ondansetron HCl 4 mg 06/20/17 02:09 06/20/17 02:18 Zofran IV 06/20/17 02:10 4 mg ONETIME ONE Administration - Radiology Interpretation Free Text/Narrative:: CXR cardiomegaly - Re-Assessments/Exams Free Text/Narrative Re-Assessment/Exam: 06/20/17 03:[address] James MD defers to higher level of care. Dr Bolivar Bryant accepting of patient for further eval and management acute on chronic CHF . Tx via [facility]. Stable condition Departure - Departure Time of Disposition: 03:34 Disposition: DC/Tfer to Acute Hospital 02 Condition: Fair Clinical Impression: Shortness of breath, Hypokalemia Acute exacerbation of CHF (congestive heart failure) Qualifiers: Heart failure type: unspecified Qualified Code(s): I50.9 - Heart failure, unspecified - Discharge Information Forms: ED Department Discharge - My Orders Last 24 Hours: My Active Orders 06/20/17 01:52 CXR [Chest 1V Frontal] [CR] Urgent 06/20/17 01:54 EKG 12 Lead [EKG Documentation Completion] [RC] URGENT 06/20/17 02:26 CULTURE BLOOD [BC] Stat - Assessment/Plan Last 24 Hours: My Active Orders 06/20/17 01:52 CXR [Chest 1V Frontal] [CR] Urgent 06/20/17 01:54 EKG 12 Lead [EKG Documentation Completion] [RC] URGENT 06/20/17 02:26 CULTURE BLOOD [BC] Stat
[2017-06-20 01:57] VITALS: BP 108/69
[2017-06-20] MEDS ORDERED: LORazepam 2 MG/ML Syringe IVPUSH ONE (02:09)
[2017-06-20] MEDS ORDERED: Ondansetron 4 MG/2 ML SDV IV ONE (02:09)
[2017-06-20] MEDS ORDERED: Furosemide 40 MG/4 ML VIAL IVPUSH ONE (02:32)
[2017-06-20] MEDS ORDERED: Potassium Chloride 10 MEQ in Premix Bag 1 BAG IV ONE (03:36)
[2017-06-20] MEDS ORDERED: Sodium Chloride 0.9% 250 ML IV ONE (03:37)
== END 2017-06-20 03:55 ==
LOC: DL.ED 01:47
DX: I11.0 Hypertensive heart disease with heart failure (principal); I50.9 Heart failure, unspecified; E87.6 Hypokalemia; F41.9 Anxiety disorder, unspecified; F17.210 Nicotine dependence, cigarettes, uncomplicated; Z79.899 Other long term (current) drug therapy
CPT/HCPCS: 36415; 71045; 80053; 80305; 81001; 82140; 83605; 83880; 84484; 85025; 87040; 87804; 93005; 96374; 96375; 99285; G0480; J1940; J2060; J2405; J3480; J7050

== ENCOUNTER 2017-06-25 13:53 | Observation (INO) | payer MEDICAID, OTHER ==
[2017-06-25 14:25] LABS: CHLORIDE,CL 94 mmol/L (101-111); SODIUM,NA 128 mmol/L (135-145)
[2017-06-25] MEDS ORDERED: Furosemide 40 MG/4 ML VIAL IVPUSH ONE (14:51)
--- NOTE | 2017-06-25 15:00 | EDM.PDOC ---
ED HPI GENERAL MEDICAL PROBLEM - General Chief Complaint: Respiratory Problem Stated Complaint: SICK. IN BY [facility] Time Seen by Provider: 06/25/17 14:00 Source of Information: Reports: Patient, EMS, EMS Notes Reviewed, RN, RN Notes Reviewed History Limitations: Reports: No Limitations - History of Present Illness INITIAL COMMENTS - FREE TEXT/NARRATIVE: Pt presents to the ER per [facility] with c/o SOB and swelling of the lower extremities. Patient states he was discharged from [facility] on Thursday for CHF. He admits to SOB and midsternal chest pain, chills, weakness, productive cough with white/yellow sputum, sore throat, nausea and vomiting. He denies fever or diarrhea. Pt states this is the first time his lower extremities have ever swelled up. Onset: Gradual Chest Pain Score (Numeric/FACES): 8 - Related Data Allergies Allergy/AdvReac Type Severity Reaction Status Date / Time No Known Allergies Allergy Verified 06/25/17 14:03 Home Meds: Home Meds Carvedilol [Coreg] 6.25 mg PO BIDMEALS 10/18/15 [History] Furosemide [Lasix] 40 mg PO Q12H 30 Days #60 tablet 04/20/17 [Rx] Lisinopril 2.5 mg PO DAILY #30 04/20/17 [Rx] Omeprazole 20 mg PO ACBREAKFAST 30 Days #30 cap.cr 04/20/17 [Rx] Potassium Chloride [Klor-Con 10] 20 meq PO DAILY #30 tab.er 04/20/17 [Rx] Sertraline [Zoloft] 50 mg PO DAILY 30 Days #30 tablet 04/20/17 [Rx] Spironolactone [Aldactone] 25 mg PO DAILY 30 Days #30 tablet 04/20/17 [Rx] Past Medical History - Past Health History Medical/Surgical History: Denies Medical/Surgical History HEENT History: Reports: None Cardiovascular History: Reports: Cardiomyopathy, Heart Failure, Hypertension, Pacemaker Respiratory History: Reports: SOB Gastrointestinal History: Reports: Gastritis, GERD Genitourinary History: Reports: Other (See Below) Other Genitourinary History: liver issues r/t ETOH Musculoskeletal History: Reports: Arthritis, Other (See Below) Other Musculoskeletal History: torn left and right upper arm tendon. missed surgery 03/2017 Neurological History: Reports: None Psychiatric History: Reports: Addiction, Anxiety, Panic Attack Other Psychiatric History: Pt states that he has been in treatment for alcoholism many times, last times 10 years ago, and he quit drinking for 8 years Endocrine/Metabolic History: Reports: None Hematologic History: Reports: None Immunologic History: Reports: None Oncologic (Cancer) History: Reports: None Dermatologic History: Reports: None - Infectious Disease History Infectious Disease History: Reports: None - Past Surgical History Head Surgeries/Procedures: Reports: None Cardiovascular Surgical History: Reports: Percutaneous Transluminal Angioplasty GI Surgical History: Reports: None Male Surgical History: Reports: None Musculoskeletal Surgical History: Reports: None Social & Family History - Family History Family Medical History: Noncontributory Cardiac: Reports: Hypertension Other Cardiac Family History: Dad and paternal grandmother have hypertension. Respiratory: Reports: Asthma Other Respiratory Family Hisory: Mom and dad have asthma. Endocrine/Metabolic: Reports: Diabetes, Type I Other Endocrine/Metabolic Family History: Dad and paternal grandmother have type I diabetes. - Tobacco Use Smoking Status *Q: Current Some Day Smoker Years of Tobacco use: 10 Packs/Tins Daily: 0.5 Used Tobacco, but Quit: No Second Hand Smoke Exposure: Yes - Caffeine Use Caffeine Use: Reports: Coffee, Soda - Alcohol Use Days Per Week of Alcohol Use: 1 Number of Drinks Per Day: 10 Total Drinks Per Week: 10 - Recreational Drug Use Recreational Drug Use: Yes Drug Use in Last 12 Months: Yes Recreational Drug Type: Reports: Methamphetamine, Oxycodone Other Recreational Drug Type: none in last week however Recreational Drug Use Frequency: Weekly Recreational Drug Last Use: few days ago - Living Situation & Occupation Living situation: Reports: with Family ED ROS GENERAL - Review of Systems Review Of Systems: ROS reveals no pertinent complaints other than HPI. ED EXAM, GENERAL - Physical Exam Exam: See Below Exam Limited By: No Limitations General Appearance: Alert, WD/WN, Mild Distress Eye Exam: Bilateral Eye: EOMI, Normal Inspection Ears: Normal External Exam, Hearing Grossly Normal Nose: Normal Inspection Throat/Mouth: Normal Inspection, Normal Voice, No Airway Compromise Head: Atraumatic, Normocephalic Neck: Normal Inspection, Supple, Non-Tender, Full Range of Motion Respiratory/Chest: Respiratory Distress (mild), Rhonchi (throughout) Cardiovascular: Normal Peripheral Pulses, Systolic Murmur, Irregularly Irregular. No: No Edema Peripheral Pulses: 1+: Dorsalis Pedis (L), Dorsalis Pedis (R), 2+: Radial (L), Radial (R) GI/Abdominal: Normal Bowel Sounds, Soft, Non-Tender, No Organomegaly, No Distention, No Abnormal Bruit, No Mass, Other (ecchymosis from injections) (Male) Exam: Deferred Rectal (Males) Exam: Deferred Back Exam: Normal Inspection, Full Range of Motion Extremities: Pedal Edema, Limited Range of Motion Neurological: Alert, Oriented, CN II-XII Intact, Normal Cognition, Normal Gait, Normal Reflexes, No Motor/Sensory Deficits Psychiatric: Normal Affect, Normal Mood Skin Exam: Warm, Dry, Intact, Normal Color, No Rash Lymphatic: No Adenopathy Course - Vital Signs Last Recorded V/S: Last Vital Signs Temp 96.8 F 06/25/17 13:30 Pulse 76 06/25/17 13:30 Resp 12 06/25/17 13:30 BP 104/84 06/25/17 13:30 Pulse Ox 100 06/25/17 13:30 - Orders/Labs/Meds Orders: Active Orders 24 hr Category Date Time Status EKG 12 Lead [EKG Documentation Completion] [RC] STAT Care 06/25/17 14:54 Active Peripheral IV Care [RC] . DIRECTED Care 06/25/17 14:23 Active DRUG SCREEN URINE BIORAD [URCHEM] Stat Lab 06/25/17 15:06 Ordered UA W/MICROSCOPIC [URIN] Stat Lab 06/25/17 15:06 Ordered Sodium Chloride 0.9% [Saline Flush] Med 06/25/17 14:23 Active 10 ml FLUSH ASDIRECTED PRN Peripheral IV Insertion Adult [OM.PC] Stat Oth 06/25/17 14:23 Ordered Medication Orders Sodium Chloride (Saline Flush) 10 ml FLUSH ASDIRECTED PRN PRN Reason: Keep Vein Open Last Admin: 06/25/17 15:06 Dose: 10 ml Labs: Laboratory Tests 06/25/17 06/25/17 06/25/17 Range/Units 13:55 13:55 13:55 WBC 5.4 (5.0-10.0) 10^3/uL RBC 4.26 L (4.6-6.2) 10^6/uL Hgb 12.3 L (14.0-18.0) g/dL Hct 37.1 L (40.0-54.0) % MCV 87.1 (80-100) fL MCH 28.9 (27.0-34.0) pg MCHC 33.2 (33.0-35.0) g/dL Plt Count 188 (150-450) 10^3/uL Neut % (Auto) 76.7 H (42.2-75.2) % Lymph % (Auto) 15.6 L (20.5-50.1) % [place] % (Auto) 6.1 (2-8) % Eos % (Auto) 0.9 L (1.0-3.0) % Baso % (Auto) 0.7 (0.0-1.0) % Sodium 128 L (135-145) mmol/L Potassium 3.9 (3.6-5.0) mmol/L Chloride 94 L (101-111) mmol/L Carbon Dioxide 28.0 (21.0-31.0) mmol/L Anion Gap 9.9 BUN 27 H (7-18) mg/dL Creatinine 0.9 (0.6-1.3) mg/dL Est Cr Clr Drug Dosing 97.87 mL/min Estimated GFR (MDRD) > 60 BUN/Creatinine Ratio 30.00 Glucose 123 H (74-105) mg/dL Calcium 8.7 (8.4-10.2) mg/dl Total Bilirubin 2.6 H (0.2-1.0) mg/dL AST 37 (10-42) IU/L ALT 24 (10-60) IU/L Alkaline Phosphatase 86 (42-121) IU/L Troponin I 0.03 H* (0.00-0.02) ng/ml B-Natriuretic Peptide 3000 H (0-100) pg/ml Total Protein 7.3 (6.7-8.2) g/dl Albumin 2.8 L (3.2-5.5) g/dl Globulin 4.5 Albumin/Globulin Ratio 0.62 Ethyl Alcohol < 5 mg/dL Meds: Medications Generic Name Dose Route Start Last Admin Trade Name Freq PRN Reason Stop Dose Admin Sodium Chloride 10 ml 06/25/17 14:23 06/25/17 15:06 Saline Flush FLUSH 10 ml ASDIRECTED PRN Administration Keep Vein Open Discontinued Medications Generic Name Dose Route Start Last Admin Trade Name Freq PRN Reason Stop Dose Admin Furosemide 80 mg 06/25/17 14:51 06/25/17 15:05 Lasix IVPUSH 06/25/17 14:52 80 mg NOW ONE Administration - Radiology Interpretation Free Text/Narrative:: Chest xray: IMPRESSION: Cardiomegaly and mild pulmonary vascular congestion. Thank you for allowing us to participate in the care of your patient. Dictated and Authenticated by: Ralph Giles MD 06/25/2017 2:56 PM Central Time ([place] & [place]) See rad report - Re-Assessments/Exams Free Text/Narrative Re-Assessment/Exam: 06/25/17 14:50 Pt case discussed with Dr. Norris who agreed to accept the patient as an inpatient at [facility]. Departure - Departure Time of Disposition: 15:35 Disposition: Admitted As Inpatient 68 Condition: Fair Clinical Impression: CHF (congestive heart failure) Qualifiers: Qualified Code(s): I50.9 - Heart failure, unspecified - Discharge Information - My Orders Last 24 Hours: My Active Orders 06/25/17 14:23 Peripheral IV Care [RC] . DIRECTED Sodium Chloride 0.9% [Saline Flush] 10 ml FLUSH ASDIRECTED PRN Peripheral IV Insertion Adult [OM.PC] Stat 06/25/17 14:54 EKG 12 Lead [EKG Documentation Completion] [RC] STAT 06/25/17 15:06 DRUG SCREEN URINE BIORAD [URCHEM] Stat UA W/MICROSCOPIC [URIN] Stat - Assessment/Plan Last 24 Hours: My Active Orders 06/25/17 14:23 Peripheral IV Care [RC] . DIRECTED Sodium Chloride 0.9% [Saline Flush] 10 ml FLUSH ASDIRECTED PRN Peripheral IV Insertion Adult [OM.PC] Stat 06/25/17 14:54 EKG 12 Lead [EKG Documentation Completion] [RC] STAT 06/25/17 15:06 DRUG SCREEN URINE BIORAD [URCHEM] Stat UA W/MICROSCOPIC [URIN] Stat
[2017-06-25] MEDS: Sodium Chloride 0.9% 10 ML Syringe FLUSH PRN ×3 (15:06→21:12)
[2017-06-25] MEDS ORDERED: Albuterol 0.083% 2.5 MG/3 ML Neb Soln NEB PRN (15:56)
[2017-06-25] MEDS ORDERED: Zolpidem 5 MG Tab PO PRN (16:02)
[2017-06-25] MEDS ORDERED: oxyCODONE 5 MG Tab PO PRN (16:02)
[2017-06-25] MEDS ORDERED: Sodium Chloride 0.9% 10 ML Syringe FLUSH PRN (16:02)
[2017-06-25] MEDS ORDERED: Ondansetron 4 MG Tab.DIS PO PRN (16:02)
--- NOTE | 2017-06-25 16:11 | PCM.HP ---
H&P History of Present Illness - General Date of Service: 06/25/17 Admit Problem/Dx: Admission Diagnosis/Problem Admission Diagnosis/Problem CHF, Congestive heart failure Source of Information: Patient - History of Present Illness Initial Comments - Free Text/Narative: 52yo with pmhx of alcohol related cardiomyopathy, systolic chf, copd recently at Replaced by [facility]. for chf with Lasix iv 40 mg bid discharged on 20 mg po bid 06/22 developed leg edema b/l, increasing sob - moderate - worse with activity - associated with cough, no fever progressively worsening Chest Pain Score (Numeric/FACES): 8 - Related Data Allergies/Adverse Reactions: Allergies Allergy/AdvReac Type Severity Reaction Status Date / Time No Known Allergies Allergy Verified 06/25/17 15:47 Home Medications: Home Meds Carvedilol [Coreg] 6.25 mg PO BIDMEALS 10/18/15 [History] Furosemide [Lasix] 40 mg PO Q12H 30 Days #60 tablet 04/20/17 [Rx] Lisinopril 2.5 mg PO DAILY #30 04/20/17 [Rx] Omeprazole 20 mg PO ACBREAKFAST 30 Days #30 cap.cr 04/20/17 [Rx] Potassium Chloride [Klor-Con 10] 20 meq PO DAILY #30 tab.er 04/20/17 [Rx] Sertraline [Zoloft] 50 mg PO DAILY 30 Days #30 tablet 04/20/17 [Rx] Spironolactone [Aldactone] 25 mg PO DAILY 30 Days #30 tablet 04/20/17 [Rx] Past Medical History - Past Health History Medical/Surgical History: Denies Medical/Surgical History HEENT History: Reports: None Cardiovascular History: Reports: Blood Clots/VTE/DVT, Cardiomyopathy, Heart Failure, Hypertension, Pacemaker, SOB on Exertion Respiratory History: Reports: SOB Gastrointestinal History: Reports: Gastritis, GERD Genitourinary History: Reports: Other (See Below) Other Genitourinary History: liver issues r/t ETOH Musculoskeletal History: Reports: Arthritis, Other (See Below) Other Musculoskeletal History: torn left and right upper arm tendon. missed surgery 03/2017 Neurological History: Reports: None Psychiatric History: Reports: Addiction, Anxiety, Depression, Panic Attack Other Psychiatric History: Pt states that he has been in treatment for alcoholism many times, last times 10 years ago, and he quit drinking for 8 years Endocrine/Metabolic History: Reports: None Hematologic History: Reports: None Immunologic History: Reports: None Oncologic (Cancer) History: Reports: None Dermatologic History: Reports: None - Infectious Disease History Infectious Disease History: Reports: None - Past Surgical History Head Surgeries/Procedures: Reports: None Cardiovascular Surgical History: Reports: AICD, Percutaneous Transluminal Angioplasty Respiratory Surgical History: Reports: None GI Surgical History: Reports: None Male Surgical History: Reports: None Neurological Surgical History: Reports: None Musculoskeletal Surgical History: Reports: None Social & Family History - Family History Family Medical History: Noncontributory Cardiac: Reports: Hypertension Other Cardiac Family History: Dad and paternal grandmother have hypertension. Respiratory: Reports: Asthma Other Respiratory Family Hisory: Mom and dad have asthma. Endocrine/Metabolic: Reports: Diabetes, Type I Other Endocrine/Metabolic Family History: Dad and paternal grandmother have type I diabetes. - Tobacco Use Smoking Status *Q: Current Every Day Smoker Years of Tobacco use: 10 Packs/Tins Daily: 1 Used Tobacco, but Quit: No Second Hand Smoke Exposure: Yes - Caffeine Use Caffeine Use: Reports: Coffee, Energy Drinks, Soda, Tea - Alcohol Use Days Per Week of Alcohol Use: 1 Number of Drinks Per Day: 10 Total Drinks Per Week: 10 - Recreational Drug Use Recreational Drug Use: Yes Drug Use in Last 12 Months: Yes Recreational Drug Type: Reports: Marijuana/Hashish, Methamphetamine Other Recreational Drug Type: none in last week however Recreational Drug Use Frequency: Not Used In Over 1 Month Recreational Drug Last Use: few days ago - Living Situation & Occupation Living situation: Reports: with Family H&P Review of Systems - Review of Systems: Review Of Systems: See Below General: Reports: Chills, Weakness. Denies: Fever Pulmonary: Reports: Shortness of Breath. Denies: Wheezing Cardiovascular: Reports: Chest Pain (chronic). Denies: Palpitations Gastrointestinal: Denies: Abdominal Pain Genitourinary: Denies: Dysuria Neurological: Denies: Dizziness Exam - Exam Exam: See Below - Vital Signs Vital Signs: Last Vital Signs Temp 36.6 C 06/25/17 15:58 Pulse 87 06/25/17 15:58 Resp 20 06/25/17 15:58 BP 94/76 06/25/17 15:58 Pulse Ox 96 06/25/17 15:58 Weight: 75.296 kg - Exam General: Alert Neck: Supple Lungs: Rhonchi (b/l) Cardiovascular: Regular Rate, Regular Rhythm GI/Abdominal Exam: Normal Bowel Sounds, Soft, Non-Tender Extremities: Pedal Edema - Patient Data Lab Results Last 24 hrs: Laboratory Results - last 24 hr 06/25/17 06/25/17 06/25/17 Range/Units 13:55 13:55 13:55 WBC 5.4 (5.0-10.0) 10^3/uL RBC 4.26 L (4.6-6.2) 10^6/uL Hgb 12.3 L (14.0-18.0) g/dL Hct 37.1 L (40.0-54.0) % MCV 87.1 (80-100) fL MCH 28.9 (27.0-34.0) pg MCHC 33.2 (33.0-35.0) g/dL Plt Count 188 (150-450) 10^3/uL Neut % (Auto) 76.7 H (42.2-75.2) % Lymph % (Auto) 15.6 L (20.5-50.1) % Logan % (Auto) 6.1 (2-8) % Eos % (Auto) 0.9 L (1.0-3.0) % Baso % (Auto) 0.7 (0.0-1.0) % Sodium 128 L (135-145) mmol/L Potassium 3.9 (3.6-5.0) mmol/L Chloride 94 L (101-111) mmol/L Carbon Dioxide 28.0 (21.0-31.0) mmol/L Anion Gap 9.9 BUN 27 H (7-18) mg/dL Creatinine 0.9 (0.6-1.3) mg/dL Est Cr Clr Drug Dosing 97.87 mL/min Estimated GFR (MDRD) > 60 BUN/Creatinine Ratio 30.00 Glucose 123 H (74-105) mg/dL Calcium 8.7 (8.4-10.2) mg/dl Total Bilirubin 2.6 H (0.2-1.0) mg/dL AST 37 (10-42) IU/L ALT 24 (10-60) IU/L Alkaline Phosphatase 86 (42-121) IU/L Troponin I 0.03 H* (0.00-0.02) ng/ml B-Natriuretic Peptide 3000 H (0-100) pg/ml Total Protein 7.3 (6.7-8.2) g/dl Albumin 2.8 L (3.2-5.5) g/dl Globulin 4.5 Albumin/Globulin Ratio 0.62 Urine Color (YELLOW) Urine Appearance (CLEAR) Urine pH (5.0-9.0) Ur Specific [place] (1.005-1.030) Urine Protein (NEGATIVE) Urine Glucose (UA) (NEGATIVE) Urine Ketones (NEGATIVE) Urine Occult Blood (NEGATIVE) Urine Nitrite (NEGATIVE) Urine Bilirubin (NEGATIVE) Urine Urobilinogen (0.2-1.0) mg/dL Ur Leukocyte Esterase (NEGATIVE) Urine RBC /HPF Urine WBC (0-5/HPF) /HPF Ur Epithelial Cells /HPF Urine Bacteria (0-FEW/HPF) /HPF Urine Mucus /LPF Urine Opiates Screen (NEGATIVE) Ur Oxycodone Screen (NEGATIVE) Urine Methadone Screen (NEGATIVE) Ur Barbiturates Screen (NEGATIVE) U Tricyclic Antidepress (NEGATIVE) Ur Phencyclidine Scrn (NEGATIVE) Ur Amphetamine Screen (NEGATIVE) U Methamphetamines Scrn (NEGATIVE) Urine MDMA Screen (NEGATIVE) U Benzodiazepines Scrn (NEGATIVE) Urine Cocaine Screen (NEGATIVE) U Marijuana (THC) Screen (NEGATIVE) Ethyl Alcohol < 5 mg/dL 06/25/17 06/25/17 Range/Units 15:07 15:07 WBC (5.0-10.0) 10^3/uL RBC (4.6-6.2) 10^6/uL Hgb (14.0-18.0) g/dL Hct (40.0-54.0) % MCV (80-100) fL MCH (27.0-34.0) pg MCHC (33.0-35.0) g/dL Plt Count (150-450) 10^3/uL Neut % (Auto) (42.2-75.2) % Lymph % (Auto) (20.5-50.1) % Logan % (Auto) (2-8) % Eos % (Auto) (1.0-3.0) % Baso % (Auto) (0.0-1.0) % Sodium (135-145) mmol/L Potassium (3.6-5.0) mmol/L Chloride (101-111) mmol/L Carbon Dioxide (21.0-31.0) mmol/L Anion Gap BUN (7-18) mg/dL Creatinine (0.6-1.3) mg/dL Est Cr Clr Drug Dosing mL/min Estimated GFR (MDRD) BUN/Creatinine Ratio Glucose (74-105) mg/dL Calcium (8.4-10.2) mg/dl Total Bilirubin (0.2-1.0) mg/dL AST (10-42) IU/L ALT (10-60) IU/L Alkaline Phosphatase (42-121) IU/L Troponin I (0.00-0.02) ng/ml B-Natriuretic Peptide (0-100) pg/ml Total Protein (6.7-8.2) g/dl Albumin (3.2-5.5) g/dl Globulin Albumin/Globulin Ratio Urine Color Dark yellow (YELLOW) Urine Appearance Slightly cloudy (CLEAR) Urine pH 5.5 (5.0-9.0) Ur Specific [place] 1.015 (1.005-1.030) Urine Protein 100 H (NEGATIVE) Urine Glucose (UA) Negative (NEGATIVE) Urine Ketones Trace H (NEGATIVE) Urine Occult Blood Negative (NEGATIVE) Urine Nitrite Negative (NEGATIVE) Urine Bilirubin Moderate H (NEGATIVE) Urine Urobilinogen 4.0 H (0.2-1.0) mg/dL Ur Leukocyte Esterase Negative (NEGATIVE) Urine RBC 0-5 /HPF Urine WBC 0-5 (0-5/HPF) /HPF Ur Epithelial Cells Rare /HPF Urine Bacteria Rare (0-FEW/HPF) /HPF Urine Mucus Rare /LPF Urine Opiates Screen Negative (NEGATIVE) Ur Oxycodone Screen Positive H (NEGATIVE) Urine Methadone Screen Negative (NEGATIVE) Ur Barbiturates Screen Negative (NEGATIVE) U Tricyclic Antidepress Negative (NEGATIVE) Ur Phencyclidine Scrn Negative (NEGATIVE) Ur Amphetamine Screen Negative (NEGATIVE) U Methamphetamines Scrn Negative (NEGATIVE) Urine MDMA Screen Negative (NEGATIVE) U Benzodiazepines Scrn Negative (NEGATIVE) Urine Cocaine Screen Negative (NEGATIVE) U Marijuana (THC) Screen Positive H (NEGATIVE) Ethyl Alcohol mg/dL Result Diagrams: 06/25/17 13:55 06/25/17 13:55 Imaging Impressions Last 24 hrs: CXR per reading + chf Problem List Initiated/Reviewed/Updated: Yes Orders Last 24hrs: Active Orders 24 hr Category Date Time Status Patient Status [ADT] Routine ADT 06/25/17 16:02 Ordered EKG 12 Lead [EKG Documentation Completion] [RC] STAT Care 06/25/17 14:54 Active Oxygen Therapy [RC] PRN Care 06/25/17 16:02 Ordered Peripheral IV Care [RC] . DIRECTED Care 06/25/17 14:23 Active RT Aerosol Therapy [RC] ASDIRECTED Care 06/25/17 15:56 Ordered Up With Assistance [RC] ASDIRECTED Care 06/25/17 16:02 Ordered VTE/DVT Education [RC] PER UNIT ROUTINE Care 06/25/17 16:02 Ordered Vital Signs [RC] Q4H Care 06/25/17 16:02 Ordered 2 Gram Sodium Diet [DIET] Diet 06/25/17 Dinner Ordered BASIC METABOLIC PANEL,BMP [CHEM] AM Lab 06/26/17 05:11 Ordered CBC WITH AUTO DIFF [HEME] AM Lab 06/26/17 05:11 Ordered DRUG SCREEN URINE BIORAD [URCHEM] Stat Lab 06/25/17 15:07 Ordered UA W/MICROSCOPIC [URIN] Stat Lab 06/25/17 15:07 Ordered Albuterol [Proventil Neb Soln] Med 06/25/17 15:56 Ordered 2.5 mg NEB Q4HRRT PRN Carvedilol [Coreg] Med 06/25/17 18:00 Ordered 3.125 mg PO BIDMEALS Furosemide [Lasix] Med 06/25/17 21:00 Ordered 40 mg IVPUSH BID Heparin Sodium Med 06/25/17 22:00 Ordered 5,000 units SUBCUT Q8HR Ibuprofen [Motrin] Med 06/25/17 16:00 Ordered 400 mg PO Q6H PRN Lisinopril [Lisinopril] Med 06/26/17 09:00 Ordered 2.5 mg PO DAILY Mometasone/Formoterol [Dulera 200-5 MCG] Med 06/25/17 18:00 Ordered 2 puff IH BIDRT Omeprazole Med 06/26/17 06:00 Ordered 20 mg PO ACBREAKFAST Ondansetron [Zofran ODT] Med 06/25/17 16:02 Ordered 4 mg PO Q4H PRN Potassium Chloride [Klor-Con 10] Med 06/26/17 09:00 Ordered 20 meq PO DAILY Sertraline [Zoloft] Med 06/26/17 09:00 Ordered 50 mg PO DAILY Sodium Chloride 0.9% [Saline Flush] Med 06/25/17 14:23 Active 10 ml FLUSH ASDIRECTED PRN Sodium Chloride 0.9% [Saline Flush] Med 06/25/17 16:02 Ordered 10 ml FLUSH ASDIRECTED PRN Spironolactone [Aldactone] Med 06/26/17 09:00 Ordered 25 mg PO DAILY Zolpidem [Ambien] Med 06/25/17 16:02 Ordered 5 mg PO BEDTIME PRN oxyCODONE Med 06/25/17 16:02 Ordered 5 mg PO Q4H PRN Antiembolic Hose [OM.PC] Per Unit Routine Oth 06/25/17 16:03 Ordered Peripheral IV Insertion Adult [OM.PC] Stat Oth 06/25/17 14:23 Ordered Saline Lock Insert [OM.PC] Routine Oth 06/25/17 16:02 Ordered Resuscitation Status Routine Resus Stat 06/25/17 16:02 Ordered Medication Orders Albuterol (Proventil Neb Soln) 2.5 mg NEB Q4HRRT PRN PRN Reason: sob Carvedilol (Coreg) 3.125 mg PO BIDMEALS ANGELIQUE Furosemide (Lasix) 40 mg IVPUSH BIDDIURETIC ANGELIQUE Heparin Sodium (Porcine) (Heparin Sodium) 5,000 units SUBCUT Q8HR ANGELIQUE Ibuprofen (Motrin) 400 mg PO Q6H PRN PRN Reason: Pain Lisinopril (Prinivil) 2.5 mg PO DAILY ANGELIQUE Mometasone Furoate/Formoterol Fumar (Dulera 200-5 Mcg) 2 puff IH BIDRT ANGELIQUE Omeprazole (Omeprazole) 20 mg PO ACBREAKFAST ANGELIQUE Ondansetron HCl (Zofran Odt) 4 mg PO Q4H PRN PRN Reason: nausea, able to take PO Oxycodone HCl (Oxycodone) 5 mg PO Q4H PRN PRN Reason: Pain (moderate 4-6) Potassium Chloride (Klor-Con 10) 20 meq PO DAILY@0800 ANGELIQUE Sertraline HCl (Zoloft) 50 mg PO DAILY ANGELIQUE Sodium Chloride (Saline Flush) 10 ml FLUSH ASDIRECTED PRN PRN Reason: Keep Vein Open Last Admin: 06/25/17 15:06 Dose: 10 ml Sodium Chloride (Saline Flush) 10 ml FLUSH ASDIRECTED PRN PRN Reason: Keep Vein Open Spironolactone (Aldactone) 25 mg PO DAILY ANGELIQUE Zolpidem Tartrate (Ambien) 5 mg PO BEDTIME PRN PRN Reason: Sleep Assessment/Plan Comment:: presented with sob, leg swelling after recent dischrage for CHF 1. Acute exacerbation of systolic chf increase lasix to 40 mg IV BID cont spironolactone, lisinopril, coreg 2. COPD no acute exacerbation treat with dulera 3. hyponatremia due to chf will follow with diuretics 4. dvt prophylaxis will be with sq heparin
[2017-06-25] MEDS: Ibuprofen 400 MG Tab PO PRN (16:51)
[2017-06-25] MEDS: Furosemide 40 MG/4 ML VIAL IVPUSH SCH (16:51)
[2017-06-25] MEDS: Carvedilol 3.125 MG Tab PO SCH (18:18)
[2017-06-25] MEDS: Formoterol/Mometasone 200-5 MCG 8.8 GM Inhaler IH SCH (18:19)
[2017-06-25] MEDS: Heparin Sodium 5,000 Units/ML Vial SUBCUT SCH (21:10)
[2017-06-26] MEDS: Omeprazole 20 MG Cap.CR PO SCH (05:45)
[2017-06-26] MEDS: Heparin Sodium 5,000 Units/ML Vial SUBCUT SCH ×3 (05:45→22:03)
[2017-06-26] MEDS: Formoterol/Mometasone 200-5 MCG 8.8 GM Inhaler IH SCH ×2 (06:24→17:20)
[2017-06-26] MEDS: Carvedilol 3.125 MG Tab PO SCH ×2 (08:27→17:19)
[2017-06-26] MEDS: Potassium Chloride 10 MEQ Tab.ER PO SCH (08:27)
[2017-06-26] MEDS: Sertraline 50 MG Tab PO SCH (08:27)
[2017-06-26] MEDS: Lisinopril 5 MG Tab PO SCH (08:27)
[2017-06-26] MEDS: Spironolactone 25 MG Tab PO SCH (08:28)
[2017-06-26] MEDS: Furosemide 40 MG/4 ML VIAL IVPUSH SCH ×2 (08:28→14:47)
--- NOTE | 2017-06-26 10:25 | PCM.PN ---
- General Info Date of Service: 06/26/17 Admission Dx/Problem (Free Text): Admission Diagnosis/Problem Admission Diagnosis/Problem CHF, Congestive heart failure Subjective Update: Feeling better. Less shortness of breath. Shortness of breath started prior to admission. There is associated cough which is nonproductive. The lower extremity swelling which was mild to moderate has improved there is only trace edema on the right foot. No abdominal pain. Functional Status: Reports: Pain Controlled - Review of Systems General: Reports: Weakness. Denies: Fever Pulmonary: Reports: Shortness of Breath, Cough Cardiovascular: Reports: Chest Pain (Chronic). Denies: Palpitations Gastrointestinal: Denies: Abdominal Pain Neurological: Denies: Confusion - Patient Data Vitals - Most Recent: Last Vital Signs Temp 37.2 C 06/26/17 07:00 Pulse 72 06/26/17 08:27 Resp 16 06/26/17 07:00 BP 105/68 06/26/17 08:27 Pulse Ox 100 06/26/17 07:00 Weight - Most Recent: 77.836 kg I&O - Last 24 Hours: Intake & Output 06/25/17 06/26/17 06/26/17 22:59 06:59 14:59 Intake Total 1070 430 Output Total 680 Balance 1070 -250 Lab Results Last 24 Hours: Laboratory Results - last 24 hr 06/25/17 06/25/17 06/25/17 Range/Units 13:55 13:55 13:55 WBC 5.4 (5.0-10.0) 10^3/uL RBC 4.26 L (4.6-6.2) 10^6/uL Hgb 12.3 L (14.0-18.0) g/dL Hct 37.1 L (40.0-54.0) % MCV 87.1 (80-100) fL MCH 28.9 (27.0-34.0) pg MCHC 33.2 (33.0-35.0) g/dL Plt Count 188 (150-450) 10^3/uL Neut % (Auto) 76.7 H (42.2-75.2) % Lymph % (Auto) 15.6 L (20.5-50.1) % [place] % (Auto) 6.1 (2-8) % Eos % (Auto) 0.9 L (1.0-3.0) % Baso % (Auto) 0.7 (0.0-1.0) % Sodium 128 L (135-145) mmol/L Potassium 3.9 (3.6-5.0) mmol/L Chloride 94 L (101-111) mmol/L Carbon Dioxide 28.0 (21.0-31.0) mmol/L Anion Gap 9.9 BUN 27 H (7-18) mg/dL Creatinine 0.9 (0.6-1.3) mg/dL Est Cr Clr Drug Dosing 97.87 mL/min Estimated GFR (MDRD) > 60 BUN/Creatinine Ratio 30.00 Glucose 123 H (74-105) mg/dL Calcium 8.7 (8.4-10.2) mg/dl Total Bilirubin 2.6 H (0.2-1.0) mg/dL AST 37 (10-42) IU/L ALT 24 (10-60) IU/L Alkaline Phosphatase 86 (42-121) IU/L Troponin I 0.03 H* (0.00-0.02) ng/ml B-Natriuretic Peptide 3000 H (0-100) pg/ml Total Protein 7.3 (6.7-8.2) g/dl Albumin 2.8 L (3.2-5.5) g/dl Globulin 4.5 Albumin/Globulin Ratio 0.62 Urine Color (YELLOW) Urine Appearance (CLEAR) Urine pH (5.0-9.0) Ur Specific [place] (1.005-1.030) Urine Protein (NEGATIVE) Urine Glucose (UA) (NEGATIVE) Urine Ketones (NEGATIVE) Urine Occult Blood (NEGATIVE) Urine Nitrite (NEGATIVE) Urine Bilirubin (NEGATIVE) Urine Urobilinogen (0.2-1.0) mg/dL Ur Leukocyte Esterase (NEGATIVE) Urine RBC /HPF Urine WBC (0-5/HPF) /HPF Ur Epithelial Cells /HPF Urine Bacteria (0-FEW/HPF) /HPF Urine Mucus /LPF Urine Opiates Screen (NEGATIVE) Ur Oxycodone Screen (NEGATIVE) Urine Methadone Screen (NEGATIVE) Ur Barbiturates Screen (NEGATIVE) U Tricyclic Antidepress (NEGATIVE) Ur Phencyclidine Scrn (NEGATIVE) Ur Amphetamine Screen (NEGATIVE) U Methamphetamines Scrn (NEGATIVE) Urine MDMA Screen (NEGATIVE) U Benzodiazepines Scrn (NEGATIVE) Urine Cocaine Screen (NEGATIVE) U Marijuana (THC) Screen (NEGATIVE) Ethyl Alcohol < 5 mg/dL 06/25/17 06/25/17 06/26/17 Range/Units 15:07 15:07 06:05 WBC 5.6 (5.0-10.0) 10^3/uL RBC 4.15 L (4.6-6.2) 10^6/uL Hgb 11.6 L (14.0-18.0) g/dL Hct 36.1 L (40.0-54.0) % MCV 87.0 (80-100) fL MCH 28.0 (27.0-34.0) pg MCHC 32.1 L (33.0-35.0) g/dL Plt Count 182 (150-450) 10^3/uL Neut % (Auto) 66.3 (42.2-75.2) % Lymph % (Auto) 21.6 (20.5-50.1) % Harrison % (Auto) 9.4 H (2-8) % Eos % (Auto) 2.3 (1.0-3.0) % Baso % (Auto) 0.4 (0.0-1.0) % Sodium (135-145) mmol/L Potassium (3.6-5.0) mmol/L Chloride (101-111) mmol/L Carbon Dioxide (21.0-31.0) mmol/L Anion Gap BUN (7-18) mg/dL Creatinine (0.6-1.3) mg/dL Est Cr Clr Drug Dosing mL/min Estimated GFR (MDRD) BUN/Creatinine Ratio Glucose (74-105) mg/dL Calcium (8.4-10.2) mg/dl Total Bilirubin (0.2-1.0) mg/dL AST (10-42) IU/L ALT (10-60) IU/L Alkaline Phosphatase (42-121) IU/L Troponin I (0.00-0.02) ng/ml B-Natriuretic Peptide (0-100) pg/ml Total Protein (6.7-8.2) g/dl Albumin (3.2-5.5) g/dl Globulin Albumin/Globulin Ratio Urine Color Dark yellow (YELLOW) Urine Appearance Slightly cloudy (CLEAR) Urine pH 5.5 (5.0-9.0) Ur Specific [place] 1.015 (1.005-1.030) Urine Protein 100 H (NEGATIVE) Urine Glucose (UA) Negative (NEGATIVE) Urine Ketones Trace H (NEGATIVE) Urine Occult Blood Negative (NEGATIVE) Urine Nitrite Negative (NEGATIVE) Urine Bilirubin Moderate H (NEGATIVE) Urine Urobilinogen 4.0 H (0.2-1.0) mg/dL Ur Leukocyte Esterase Negative (NEGATIVE) Urine RBC 0-5 /HPF Urine WBC 0-5 (0-5/HPF) /HPF Ur Epithelial Cells Rare /HPF Urine Bacteria Rare (0-FEW/HPF) /HPF Urine Mucus Rare /LPF Urine Opiates Screen Negative (NEGATIVE) Ur Oxycodone Screen Positive H (NEGATIVE) Urine Methadone Screen Negative (NEGATIVE) Ur Barbiturates Screen Negative (NEGATIVE) U Tricyclic Antidepress Negative (NEGATIVE) Ur Phencyclidine Scrn Negative (NEGATIVE) Ur Amphetamine Screen Negative (NEGATIVE) U Methamphetamines Scrn Negative (NEGATIVE) Urine MDMA Screen Negative (NEGATIVE) U Benzodiazepines Scrn Negative (NEGATIVE) Urine Cocaine Screen Negative (NEGATIVE) U Marijuana (THC) Screen Positive H (NEGATIVE) Ethyl Alcohol mg/dL 06/26/17 Range/Units 06:05 WBC (5.0-10.0) 10^3/uL RBC (4.6-6.2) 10^6/uL Hgb (14.0-18.0) g/dL Hct (40.0-54.0) % MCV (80-100) fL MCH (27.0-34.0) pg MCHC (33.0-35.0) g/dL Plt Count (150-450) 10^3/uL Neut % (Auto) (42.2-75.2) % Lymph % (Auto) (20.5-50.1) % [place] % (Auto) (2-8) % Eos % (Auto) (1.0-3.0) % Baso % (Auto) (0.0-1.0) % Sodium 132 L (135-145) mmol/L Potassium 4.1 (3.6-5.0) mmol/L Chloride 97 L (101-111) mmol/L Carbon Dioxide 28.0 (21.0-31.0) mmol/L Anion Gap 11.1 BUN 28 H (7-18) mg/dL Creatinine 1.3 (0.6-1.3) mg/dL Est Cr Clr Drug Dosing 67.98 mL/min Estimated GFR (MDRD) 58 BUN/Creatinine Ratio Glucose 148 H (74-105) mg/dL Calcium 8.6 (8.4-10.2) mg/dl Total Bilirubin (0.2-1.0) mg/dL AST (10-42) IU/L ALT (10-60) IU/L Alkaline Phosphatase (42-121) IU/L Troponin I (0.00-0.02) ng/ml B-Natriuretic Peptide (0-100) pg/ml Total Protein (6.7-8.2) g/dl Albumin (3.2-5.5) g/dl Globulin Albumin/Globulin Ratio Urine Color (YELLOW) Urine Appearance (CLEAR) Urine pH (5.0-9.0) Ur Specific [place] (1.005-1.030) Urine Protein (NEGATIVE) Urine Glucose (UA) (NEGATIVE) Urine Ketones (NEGATIVE) Urine Occult Blood (NEGATIVE) Urine Nitrite (NEGATIVE) Urine Bilirubin (NEGATIVE) Urine Urobilinogen (0.2-1.0) mg/dL Ur Leukocyte Esterase (NEGATIVE) Urine RBC /HPF Urine WBC (0-5/HPF) /HPF Ur Epithelial Cells /HPF Urine Bacteria (0-FEW/HPF) /HPF Urine Mucus /LPF Urine Opiates Screen (NEGATIVE) Ur Oxycodone Screen (NEGATIVE) Urine Methadone Screen (NEGATIVE) Ur Barbiturates Screen (NEGATIVE) U Tricyclic Antidepress (NEGATIVE) Ur Phencyclidine Scrn (NEGATIVE) Ur Amphetamine Screen (NEGATIVE) U Methamphetamines Scrn (NEGATIVE) Urine MDMA Screen (NEGATIVE) U Benzodiazepines Scrn (NEGATIVE) Urine Cocaine Screen (NEGATIVE) U Marijuana (THC) Screen (NEGATIVE) Ethyl Alcohol mg/dL Med Orders - Current: Current Medications Albuterol (Proventil Neb Soln) 2.5 mg NEB Q4HRRT PRN PRN Reason: sob Carvedilol (Coreg) 3.125 mg PO BIDMEALS [facility] Last Admin: 06/26/17 08:27 Dose: 3.125 mg Furosemide (Lasix) 40 mg IVPUSH BIDDIURETIC [facility] Last Admin: 06/26/17 08:28 Dose: 40 mg Heparin Sodium (Porcine) (Heparin Sodium) 5,000 units SUBCUT Q8HR [facility] Last Admin: 06/26/17 05:45 Dose: 5,000 units Ibuprofen (Motrin) 400 mg PO Q6H PRN PRN Reason: Pain Last Admin: 06/25/17 16:51 Dose: 400 mg Lisinopril (Prinivil) 2.5 mg PO DAILY [facility] Last Admin: 06/26/17 08:27 Dose: 2.5 mg Mometasone Furoate/Formoterol Fumar (Dulera 200-5 Mcg) 2 puff IH BIDRT [facility] Last Admin: 06/26/17 06:24 Dose: 2 puff Omeprazole (Omeprazole) 20 mg PO ACBREAKFAST [facility] Last Admin: 06/26/17 05:45 Dose: 20 mg Ondansetron HCl (Zofran Odt) 4 mg PO Q4H PRN PRN Reason: nausea, able to take PO Oxycodone HCl (Oxycodone) 5 mg PO Q4H PRN PRN Reason: Pain (moderate 4-6) Potassium Chloride (Klor-Con 10) 20 meq PO DAILY@0800 [facility] Last Admin: 06/26/17 08:27 Dose: 20 meq Sertraline HCl (Zoloft) 50 mg PO DAILY [facility] Last Admin: 06/26/17 08:27 Dose: 50 mg Sodium Chloride (Saline Flush) 10 ml FLUSH ASDIRECTED PRN PRN Reason: Keep Vein Open Last Admin: 06/25/17 21:12 Dose: 10 ml Spironolactone (Aldactone) 25 mg PO DAILY [facility] Last Admin: 06/26/17 08:28 Dose: 25 mg Zolpidem Tartrate (Ambien) 5 mg PO BEDTIME PRN PRN Reason: Sleep Discontinued Medications Furosemide (Lasix) 80 mg IVPUSH NOW ONE Stop: 06/25/17 14:52 Last Admin: 06/25/17 15:05 Dose: 80 mg Sodium Chloride (Saline Flush) 10 ml FLUSH ASDIRECTED PRN PRN Reason: Keep Vein Open - Exam Quality Assessment: No: Supplemental Oxygen General: Alert, Oriented Neck: Supple Lungs: Clear to Auscultation, Rhonchi (Basilar) Cardiovascular: Regular Rate, Regular Rhythm GI/Abdominal Exam: Normal Bowel Sounds, Soft, Non-Tender Extremities: Pedal Edema (Trace right foot) - Problem List Review Problem List Initiated/Reviewed/Updated: Yes - My Orders Last 24 Hours: My Active Orders 06/25/17 15:56 RT Aerosol Therapy [RC] ASDIRECTED Albuterol [Proventil Neb Soln] 2.5 mg NEB Q4HRRT PRN 06/25/17 16:00 Ibuprofen [Motrin] 400 mg PO Q6H PRN 06/25/17 16:02 Patient Status [ADT] Routine Oxygen Therapy [RC] PRN Up With Assistance [RC] ASDIRECTED VTE/DVT Education [RC] PER UNIT ROUTINE Vital Signs [RC] 03,07,11,15,19,23 Ondansetron [Zofran ODT] 4 mg PO Q4H PRN Zolpidem [Ambien] 5 mg PO BEDTIME PRN oxyCODONE 5 mg PO Q4H PRN Saline Lock Insert [OM.PC] Routine Resuscitation Status Routine 06/25/17 16:03 Antiembolic Hose [OM.PC] Per Unit Routine 06/25/17 16:15 Furosemide [Lasix] 40 mg IVPUSH BIDDIURETIC 06/25/17 18:00 Carvedilol [Coreg] 3.125 mg PO BIDMEALS Mometasone/Formoterol [Dulera 200-5 MCG] 2 puff IH BIDRT 06/25/17 22:00 Heparin Sodium 5,000 units SUBCUT Q8HR 06/25/17 Dinner 2 Gram Sodium Diet [DIET] 06/26/17 06:00 Omeprazole 20 mg PO ACBREAKFAST 06/26/17 08:00 Potassium Chloride [Klor-Con 10] 20 meq PO DAILY@0800 06/26/17 09:00 Lisinopril [Prinivil] 2.5 mg PO DAILY Sertraline [Zoloft] 50 mg PO DAILY Spironolactone [Aldactone] 25 mg PO DAILY 06/27/17 05:15 BASIC METABOLIC PANEL,BMP [CHEM] AM CBC WITH AUTO DIFF [HEME] AM - Plan Plan:: presented with sob, leg swelling after recent dischrage for CHF 1. Acute exacerbation of systolic chf Was on 20 mg Lasix twice a day at home after hospital discharge recently increase lasix to 40 mg IV BID cont spironolactone, lisinopril, coreg 2. COPD no acute exacerbation treat with dulera 3. hyponatremia due to chf Improved will follow with diuretics 4. Chronic chest pain Appears at baseline 5. dvt prophylaxis will be with sq heparin
[2017-06-27] MEDS: Ibuprofen 400 MG Tab PO PRN (00:17)
[2017-06-27] MEDS: Omeprazole 20 MG Cap.CR PO SCH (05:45)
[2017-06-27] MEDS: Heparin Sodium 5,000 Units/ML Vial SUBCUT SCH (05:46)
[2017-06-27] MEDS: Formoterol/Mometasone 200-5 MCG 8.8 GM Inhaler IH SCH (06:20)
[2017-06-27 06:52] LABS: CHLORIDE,CL 97 mmol/L (101-111); SODIUM,NA 133 mmol/L (135-145)
[2017-06-27] MEDS: Potassium Chloride 10 MEQ Tab.ER PO SCH (08:28)
[2017-06-27] MEDS: Carvedilol 3.125 MG Tab PO SCH (08:28)
[2017-06-27] MEDS: Spironolactone 25 MG Tab PO SCH (08:29)
[2017-06-27] MEDS: Furosemide 40 MG/4 ML VIAL IVPUSH SCH (08:29)
[2017-06-27] MEDS: Sertraline 50 MG Tab PO SCH (08:29)
[2017-06-27] MEDS: Lisinopril 5 MG Tab PO SCH (08:33)
[2017-06-27 08:38] VITALS: BP 96/65
--- NOTE | 2017-06-27 10:46 | PCM.DCSUM1 ---
Discharge Summary - Hospital Course Free Text/Narrative:: presented with sob, leg swelling after recent discharge for CHF 1. Acute exacerbation of systolic chf Was on 20 mg Lasix twice a day at home after hospital discharge recently increased lasix - discharge on 40 mg po BID cont spironolactone, lisinopril, coreg 2. COPD no acute exacerbation treat with dulera 3. hyponatremia due to chf Improved Follow periodically with diuretics 4. Chronic chest pain Appears at baseline Try to minimize narcotics - Discharge Data Discharge Date: 06/27/17 Discharge Disposition: Home, Self-Care 01 Condition: Good - Patient Instructions Diet: Heart Healthy Diet Activity: As Tolerated - Discharge Plan Home Medications: Home Meds Carvedilol [Coreg] 6.25 mg PO BIDMEALS 10/18/15 [History] Lisinopril 2.5 mg PO DAILY #30 04/20/17 [Rx] Omeprazole 20 mg PO ACBREAKFAST 30 Days #30 cap.cr 04/20/17 [Rx] Potassium Chloride [Klor-Con 10] 20 meq PO DAILY #30 tab.er 04/20/17 [Rx] Sertraline [Zoloft] 50 mg PO DAILY 30 Days #30 tablet 04/20/17 [Rx] Spironolactone [Aldactone] 25 mg PO DAILY 30 Days #30 tablet 04/20/17 [Rx] Furosemide [Lasix] 40 mg PO BID 30 Days #60 tablet 06/27/17 [Rx] Patient Handouts: Heart Failure, [id number] Referrals: Roger Waters MD [Primary Care Provider] - (in 3 days) - Discharge Summary/Plan Comment DC Time >30 min.: No - Patient Data Vitals - Most Recent: Last Vital Signs Temp 36.9 C 06/27/17 07:00 Pulse 121 H 06/27/17 08:28 Resp 14 06/27/17 07:00 BP 96/65 06/27/17 08:33 Pulse Ox 95 06/27/17 07:00 Weight - Most Recent: 76.385 kg I&O - Last 24 hours: Intake & Output 06/26/17 06/27/17 06/27/17 22:59 06:59 14:59 Intake Total 1220 250 560 Output Total 1550 Balance -330 250 560 Lab Results - Last 24 hrs: Laboratory Results - last 24 hr 06/27/17 06/27/17 Range/Units 06:05 06:05 WBC 5.7 (5.0-10.0) 10^3/uL RBC 4.04 L (4.6-6.2) 10^6/uL Hgb 11.5 L (14.0-18.0) g/dL Hct 35.3 L (40.0-54.0) % MCV 87.4 (80-100) fL MCH 28.5 (27.0-34.0) pg MCHC 32.6 L (33.0-35.0) g/dL Plt Count 177 (150-450) 10^3/uL Neut % (Auto) 70.4 (42.2-75.2) % Lymph % (Auto) 17.8 L (20.5-50.1) % [place] % (Auto) 9.2 H (2-8) % Eos % (Auto) 2.3 (1.0-3.0) % Baso % (Auto) 0.3 (0.0-1.0) % Sodium 133 L (135-145) mmol/L Potassium 4.1 (3.6-5.0) mmol/L Chloride 97 L (101-111) mmol/L Carbon Dioxide 30.0 (21.0-31.0) mmol/L Anion Gap 10.1 BUN 26 H (7-18) mg/dL Creatinine 1.1 (0.6-1.3) mg/dL Est Cr Clr Drug Dosing 80.34 mL/min Estimated GFR (MDRD) > 60 Glucose 97 (74-105) mg/dL Calcium 8.3 L (8.4-10.2) mg/dl Med Orders - Current: Current Medications Albuterol (Proventil Neb Soln) 2.5 mg NEB Q4HRRT PRN PRN Reason: sob Carvedilol (Coreg) 3.125 mg PO BIDMEALS [facility] Last Admin: 06/27/17 08:28 Dose: 3.125 mg Furosemide (Lasix) 40 mg IVPUSH BIDDIURETIC [facility] Last Admin: 06/27/17 08:29 Dose: 40 mg Heparin Sodium (Porcine) (Heparin Sodium) 5,000 units SUBCUT Q8HR [facility] Last Admin: 06/27/17 05:46 Dose: 5,000 units Ibuprofen (Motrin) 400 mg PO Q6H PRN PRN Reason: Pain Last Admin: 06/27/17 00:17 Dose: 400 mg Lisinopril (Prinivil) 2.5 mg PO DAILY [facility] Last Admin: 06/27/17 08:33 Dose: 2.5 mg Mometasone Furoate/Formoterol Fumar (Dulera 200-5 Mcg) 2 puff IH BIDRT [facility] Last Admin: 06/27/17 06:20 Dose: 2 puff Omeprazole (Omeprazole) 20 mg PO ACBREAKFAST [facility] Last Admin: 06/27/17 05:45 Dose: 20 mg Ondansetron HCl (Zofran Odt) 4 mg PO Q4H PRN PRN Reason: nausea, able to take PO Oxycodone HCl (Oxycodone) 5 mg PO Q4H PRN PRN Reason: Pain (moderate 4-6) Potassium Chloride (Klor-Con 10) 20 meq PO DAILY@0800 [facility] Last Admin: 06/27/17 08:28 Dose: 20 meq Sertraline HCl (Zoloft) 50 mg PO DAILY [facility] Last Admin: 06/27/17 08:29 Dose: 50 mg Sodium Chloride (Saline Flush) 10 ml FLUSH ASDIRECTED PRN PRN Reason: Keep Vein Open Last Admin: 06/25/17 21:12 Dose: 10 ml Spironolactone (Aldactone) 25 mg PO DAILY [facility] Last Admin: 06/27/17 08:29 Dose: 25 mg Zolpidem Tartrate (Ambien) 5 mg PO BEDTIME PRN PRN Reason: Sleep Discontinued Medications Furosemide (Lasix) 80 mg IVPUSH NOW ONE Stop: 06/25/17 14:52 Last Admin: 06/25/17 15:05 Dose: 80 mg Sodium Chloride (Saline Flush) 10 ml FLUSH ASDIRECTED PRN PRN Reason: Keep Vein Open
--- NOTE | 2017-06-28 01:02 | EKG ---
06/25/2017 - MANNIE MEREDITH - TIME OF EK:39 p.m. EKG, per my reading, shows ventricular-paced rhythm with PVC. [facility] /[id number]
--- NOTE | 2017-06-28 01:20 | EKG ---
06/25/2017 - MANNIE MEREDITH - TIME: 2:41 p.m. FINDINGS: EKG per my reading shows sinus rhythm with multifocal PVCs. [facility] /[id number]
== END 2017-06-27 13:00 | disposition home or self-care (01) ==
LOC: DL.ED 13:53 → DL.MS 15:19 → UNDOADMOB 15:19 → DL.MS 15:39
PROVIDERS: ADMIT Internal Medicine; ATTEND Internal Medicine
DX: I11.0 Hypertensive heart disease with heart failure (principal); I50.21 Acute systolic (congestive) heart failure; J44.9 Chronic obstructive pulmonary disease, unspecified; E87.1 Hypo-osmolality and hyponatremia; I42.6 Alcoholic cardiomyopathy; K21.9 Gastro-esophageal reflux disease without esophagitis; M19.90 Unspecified osteoarthritis, unspecified site; F41.9 Anxiety disorder, unspecified; F32.9 Major depressive disorder, single episode, unspecified; F17.210 Nicotine dependence, cigarettes, uncomplicated; Z79.899 Other long term (current) drug therapy; Z95.810 Presence of automatic (implantable) cardiac defibrillator; Z98.61 Coronary angioplasty status; Z95.0 Presence of cardiac pacemaker
CPT/HCPCS: 36415; 71046; 80048; 80053; 80305; 81001; 83880; 84484; 85025; 93005; 96374; 99285; A9270; G0480; J1644; J1940; J7050; 96372; G0378

== ENCOUNTER 2017-07-03 10:31 | Emergency (ER) | payer MEDICAID, OTHER ==
[2017-07-03] MEDS: Sodium Chloride 0.9% 10 ML Syringe FLUSH PRN ×2 (10:46→11:40)
[2017-07-03 11:01] LABS: CHLORIDE,CL 107 mmol/L (101-111); SODIUM,NA 137 mmol/L (135-145)
[2017-07-03] MEDS ORDERED: Furosemide 40 MG/4 ML VIAL IVPUSH ONE (11:17)
[2017-07-03] MEDS ORDERED: LORazepam 2 MG/ML Syringe IVPUSH ONE (11:18)
--- NOTE | 2017-07-03 11:36 | CR ---
CLINICAL HISTORY: 52-year-old male with chest pain. INTERPRETATION: Abnormal. Chronic cardiomegaly and generalized mild venous congestion/cephalization but no new signs of alveola r edema or dependent pleural fluid accumulation when compared to 25 June 2017 exam, i.e., relatively unchanged. Cardiac pacemaker leads appear intact. Prominent proximal pulmonary artery segments but no sign of lung mass or hilar lymphadenopathy. No fo cornelia lobar pneumonia or atelectasis/collapse. No pneumothorax. CONCLUSION: No acute new cardiopulmonary abnormality, i.e., unchanged except for technique (AP versus PA) since chest radiograph 25 June 2017.
--- NOTE | 2017-07-03 11:54 | EDM.PDOC ---
ED HPI GENERAL MEDICAL PROBLEM - General Chief Complaint: Chest Pain Stated Complaint: IN BY [facility] AMB Time Seen by Provider: 07/03/17 10:45 Source of Information: Reports: Patient, EMS, EMS Notes Reviewed, RN, RN Notes Reviewed History Limitations: Reports: No Limitations - History of Present Illness INITIAL COMMENTS - FREE TEXT/NARRATIVE: Pt presents to the ER per [facility] with c/o sob, anxiety, and swelling in the legs. Pt was recently discharged from the hospital for CHF. He states he has been taking his medications as prescribed. He denies fever or chills, N/V/D. He admits to intermittent cough, and sob. Onset: Gradual Chest Pain Score (Numeric/FACES): 6 - Related Data Allergies Allergy/AdvReac Type Severity Reaction Status Date / Time No Known Allergies Allergy Verified 07/03/17 10:32 Home Meds: Home Meds Carvedilol [Coreg] 6.25 mg PO BIDMEALS 10/18/15 [History] Lisinopril 2.5 mg PO DAILY #30 04/20/17 [Rx] Omeprazole 20 mg PO ACBREAKFAST 30 Days #30 cap.cr 04/20/17 [Rx] Potassium Chloride [Klor-Con 10] 20 meq PO DAILY #30 tab.er 04/20/17 [Rx] Sertraline [Zoloft] 50 mg PO DAILY 30 Days #30 tablet 04/20/17 [Rx] Spironolactone [Aldactone] 25 mg PO DAILY 30 Days #30 tablet 04/20/17 [Rx] Furosemide [Lasix] 40 mg PO BID 30 Days #60 tablet 06/27/17 [Rx] Past Medical History - Past Health History Medical/Surgical History: Denies Medical/Surgical History HEENT History: Reports: None Cardiovascular History: Reports: Blood Clots/VTE/DVT, Cardiomyopathy, Heart Failure, Hypertension, Pacemaker, SOB on Exertion Respiratory History: Reports: SOB Gastrointestinal History: Reports: Gastritis, GERD Genitourinary History: Reports: Other (See Below) Other Genitourinary History: liver issues r/t ETOH Musculoskeletal History: Reports: Arthritis, Other (See Below) Other Musculoskeletal History: torn left and right upper arm tendon. missed surgery 03/2017 Neurological History: Reports: None Psychiatric History: Reports: Addiction, Anxiety, Depression, Panic Attack Other Psychiatric History: Pt states that he has been in treatment for alcoholism many times, last times 10 years ago, and he quit drinking for 8 years Endocrine/Metabolic History: Reports: None Hematologic History: Reports: None Immunologic History: Reports: None Oncologic (Cancer) History: Reports: None Dermatologic History: Reports: None - Infectious Disease History Infectious Disease History: Reports: None - Past Surgical History Head Surgeries/Procedures: Reports: None Cardiovascular Surgical History: Reports: AICD, Percutaneous Transluminal Angioplasty Respiratory Surgical History: Reports: None GI Surgical History: Reports: None Male Surgical History: Reports: None Neurological Surgical History: Reports: None Musculoskeletal Surgical History: Reports: None Social & Family History - Family History Family Medical History: Noncontributory Cardiac: Reports: Hypertension Other Cardiac Family History: Dad and paternal grandmother have hypertension. Respiratory: Reports: Asthma Other Respiratory Family Hisory: Mom and dad have asthma. Endocrine/Metabolic: Reports: Diabetes, Type I Other Endocrine/Metabolic Family History: Dad and paternal grandmother have type I diabetes. - Tobacco Use Smoking Status *Q: Former Smoker Years of Tobacco use: 10 Packs/Tins Daily: 1 Used Tobacco, but Quit: Yes Month/Year Tobacco Last Used: ? Second Hand Smoke Exposure: Yes - Caffeine Use Caffeine Use: Reports: Coffee - Alcohol Use Days Per Week of Alcohol Use: 1 Number of Drinks Per Day: 10 Total Drinks Per Week: 10 - Recreational Drug Use Recreational Drug Use: No Drug Use in Last 12 Months: Yes Recreational Drug Type: Reports: Marijuana/Hashish, Methamphetamine Other Recreational Drug Type: none in last week however Recreational Drug Use Frequency: Not Used In Over 1 Month Recreational Drug Last Use: few days ago - Living Situation & Occupation Living situation: Reports: with Family ED ROS GENERAL - Review of Systems Review Of Systems: ROS reveals no pertinent complaints other than HPI. ED EXAM, GENERAL - Physical Exam Exam: See Below Exam Limited By: No Limitations General Appearance: Alert, WD/WN, Mild Distress Eye Exam: Bilateral Eye: EOMI, Normal Inspection Ears: Normal External Exam, Hearing Grossly Normal Nose: Normal Inspection Throat/Mouth: Normal Inspection, Normal Voice, No Airway Compromise Head: Atraumatic, Normocephalic Neck: Normal Inspection Respiratory/Chest: No Respiratory Distress, Decreased Breath Sounds, Rales ( throughout) Cardiovascular: Normal Peripheral Pulses, Regular Rate, Rhythm, No Murmur. No: No Edema Peripheral Pulses: 2+: Radial (L), Radial (R) GI/Abdominal: Normal Bowel Sounds, Soft, Non-Tender (Male) Exam: Deferred Rectal (Males) Exam: Deferred Back Exam: Normal Inspection, Decreased Range of Motion Extremities: Normal Inspection, Normal Range of Motion, Non-Tender, Normal Capillary Refill, Pedal Edema (+2) Neurological: Alert, Oriented, CN II-XII Intact, Normal Cognition, Normal Gait, Normal Reflexes, No Motor/Sensory Deficits Psychiatric: Anxious Skin Exam: Warm, Dry, Intact, Normal Color, No Rash Lymphatic: No Adenopathy EKG INTERPRETATION EKG Date: 07/03/17 Time: 10:42 Rhythm: Other (Atrial sensed ventricular paced complexes) Comparison: No Change Course - Vital Signs Last Recorded V/S: Last Vital Signs Temp 97.1 F 07/03/17 10:32 Pulse 90 07/03/17 10:32 Resp 18 07/03/17 10:32 BP Pulse Ox 100 07/03/17 10:32 - Orders/Labs/Meds Labs: Laboratory Tests 07/03/17 07/03/17 07/03/17 Range/Units 10:33 10:33 10:33 WBC 6.0 (5.0-10.0) 10^3/uL RBC 4.68 (4.6-6.2) 10^6/uL Hgb 13.1 L D (14.0-18.0) g/dL Hct 40.7 (40.0-54.0) % MCV 87.0 (80-100) fL MCH 28.0 (27.0-34.0) pg MCHC 32.2 L (33.0-35.0) g/dL Plt Count 295 D (150-450) 10^3/uL Neut % (Auto) 79.0 H (42.2-75.2) % Lymph % (Auto) 14.1 L (20.5-50.1) % [place] % (Auto) 4.2 (2-8) % Eos % (Auto) 2.0 (1.0-3.0) % Baso % (Auto) 0.7 (0.0-1.0) % PT (9.0-12.0) SEC INR (0.9-1.2) Sodium 137 (135-145) mmol/L Potassium 3.9 (3.6-5.0) mmol/L Chloride 107 (101-111) mmol/L Carbon Dioxide 26.0 (21.0-31.0) mmol/L Anion Gap 7.9 BUN 11 (7-18) mg/dL Creatinine 0.8 (0.6-1.3) mg/dL Est Cr Clr Drug Dosing 110.47 mL/min Estimated GFR (MDRD) > 60 BUN/Creatinine Ratio 13.75 Glucose 125 H (74-105) mg/dL Lactic Acid 1.0 (0.5-2.2) mmol/L Calcium 8.6 (8.4-10.2) mg/dl Magnesium 1.7 L (1.8-2.5) mg/dL Total Bilirubin 1.7 H (0.2-1.0) mg/dL AST 30 (10-42) IU/L ALT 15 (10-60) IU/L Alkaline Phosphatase 132 H (42-121) IU/L Troponin I 0.03 H* (0.00-0.02) ng/ml B-Natriuretic Peptide 2980 H (0-100) pg/ml Total Protein 8.1 (6.7-8.2) g/dl Albumin 3.0 L (3.2-5.5) g/dl Globulin 5.1 Albumin/Globulin Ratio 0.59 Urine Color (YELLOW) Urine Appearance (CLEAR) Urine pH (5.0-9.0) Ur Specific [place] (1.005-1.030) Urine Protein (NEGATIVE) Urine Glucose (UA) (NEGATIVE) Urine Ketones (NEGATIVE) Urine Occult Blood (NEGATIVE) Urine Nitrite (NEGATIVE) Urine Bilirubin (NEGATIVE) Urine Urobilinogen (0.2-1.0) mg/dL Ur Leukocyte Esterase (NEGATIVE) Urine RBC /HPF Urine WBC (0-5/HPF) /HPF Ur Epithelial Cells /HPF Urine Bacteria (0-FEW/HPF) /HPF Urine Opiates Screen (NEGATIVE) Ur Oxycodone Screen (NEGATIVE) Urine Methadone Screen (NEGATIVE) Ur Barbiturates Screen (NEGATIVE) U Tricyclic Antidepress (NEGATIVE) Ur Phencyclidine Scrn (NEGATIVE) Ur Amphetamine Screen (NEGATIVE) U Methamphetamines Scrn (NEGATIVE) Urine MDMA Screen (NEGATIVE) U Benzodiazepines Scrn (NEGATIVE) Urine Cocaine Screen (NEGATIVE) U Marijuana (THC) Screen (NEGATIVE) Ethyl Alcohol < 5 mg/dL 07/03/17 07/03/17 07/03/17 Range/Units 10:33 10:46 10:46 WBC (5.0-10.0) 10^3/uL RBC (4.6-6.2) 10^6/uL Hgb (14.0-18.0) g/dL Hct (40.0-54.0) % MCV (80-100) fL MCH (27.0-34.0) pg MCHC (33.0-35.0) g/dL Plt Count (150-450) 10^3/uL Neut % (Auto) (42.2-75.2) % Lymph % (Auto) (20.5-50.1) % [place] % (Auto) (2-8) % Eos % (Auto) (1.0-3.0) % Baso % (Auto) (0.0-1.0) % PT 11.0 (9.0-12.0) SEC INR 1.1 (0.9-1.2) Sodium (135-145) mmol/L Potassium (3.6-5.0) mmol/L Chloride (101-111) mmol/L Carbon Dioxide (21.0-31.0) mmol/L Anion Gap BUN (7-18) mg/dL Creatinine (0.6-1.3) mg/dL Est Cr Clr Drug Dosing mL/min Estimated GFR (MDRD) BUN/Creatinine Ratio Glucose (74-105) mg/dL Lactic Acid (0.5-2.2) mmol/L Calcium (8.4-10.2) mg/dl Magnesium (1.8-2.5) mg/dL Total Bilirubin (0.2-1.0) mg/dL AST (10-42) IU/L ALT (10-60) IU/L Alkaline Phosphatase (42-121) IU/L Troponin I (0.00-0.02) ng/ml B-Natriuretic Peptide (0-100) pg/ml Total Protein (6.7-8.2) g/dl Albumin (3.2-5.5) g/dl Globulin Albumin/Globulin Ratio Urine Color Yellow (YELLOW) Urine Appearance Clear (CLEAR) Urine pH 7.0 (5.0-9.0) Ur Specific [place] 1.020 (1.005-1.030) Urine Protein Negative (NEGATIVE) Urine Glucose (UA) Negative (NEGATIVE) Urine Ketones Negative (NEGATIVE) Urine Occult Blood Negative (NEGATIVE) Urine Nitrite Negative (NEGATIVE) Urine Bilirubin Negative (NEGATIVE) Urine Urobilinogen 0.2 (0.2-1.0) mg/dL Ur Leukocyte Esterase Negative (NEGATIVE) Urine RBC 0-5 /HPF Urine WBC Not seen (0-5/HPF) /HPF Ur Epithelial Cells Not seen /HPF Urine Bacteria Few (0-FEW/HPF) /HPF Urine Opiates Screen Negative (NEGATIVE) Ur Oxycodone Screen Positive H (NEGATIVE) Urine Methadone Screen Negative (NEGATIVE) Ur Barbiturates Screen Negative (NEGATIVE) U Tricyclic Antidepress Negative (NEGATIVE) Ur Phencyclidine Scrn Negative (NEGATIVE) Ur Amphetamine Screen Negative (NEGATIVE) U Methamphetamines Scrn Negative (NEGATIVE) Urine MDMA Screen Negative (NEGATIVE) U Benzodiazepines Scrn Negative (NEGATIVE) Urine Cocaine Screen Negative (NEGATIVE) U Marijuana (THC) Screen Negative (NEGATIVE) Ethyl Alcohol mg/dL Meds: Medications Discontinued Medications Generic Name Dose Route Start Last Admin Trade Name Freq PRN Reason Stop Dose Admin Furosemide 80 mg 07/03/17 11:17 07/03/17 11:39 Lasix IVPUSH 07/03/17 11:18 80 mg NOW ONE Administration Lorazepam 1 mg 07/03/17 11:18 07/03/17 11:39 Ativan IVPUSH 07/03/17 11:19 1 mg ONETIME ONE Administration Sodium Chloride 10 ml 07/03/17 10:22 07/03/17 11:40 Saline Flush FLUSH 10 ml ASDIRECTED PRN Administration Keep Vein Open - Radiology Interpretation Free Text/Narrative:: Portable chest xray: Unchanged from last xray See rad report Departure - Departure Time of Disposition: 11:54 Disposition: Home, Self-Care 01 Condition: Fair Clinical Impression: CHF (congestive heart failure) Qualifiers: Qualified Code(s): I50.9 - Heart failure, unspecified - Discharge Information Forms: ED Department Discharge Additional Instructions: Rx: Ativan Continue taking medications as prescribed Follow up with your primary care facility
--- NOTE | 2017-07-06 09:44 | EKG ---
07/03/2017- MANNIE MEREDITH - A 12-lead EKG shows paced complex. No further interpretation is available as has a paced rhythm. Heart rate of 105. [facility] /[id number]
== END 2017-07-03 12:18 | disposition home or self-care (01) ==
LOC: DL.ED 10:31
DX: I11.0 Hypertensive heart disease with heart failure (principal); I50.9 Heart failure, unspecified; Z79.899 Other long term (current) drug therapy
CPT/HCPCS: 36415; 71045; 80053; 80305; 81001; 83605; 83735; 83880; 84484; 85025; 85610; 93005; 96374; 96375; 99285; G0480; J1940; J2060; J7050

== ENCOUNTER 2017-07-06 12:08 | Observation (INO) | payer MEDICAID, OTHER ==
--- NOTE | 2017-07-06 10:53 | EDM.PDOC ---
ED HPI GENERAL MEDICAL PROBLEM - General Stated Complaint: IN BY AMBULANCE Time Seen by Provider: 07/06/17 10:40 Source of Information: Reports: Patient History Limitations: Reports: No Limitations - History of Present Illness INITIAL COMMENTS - FREE TEXT/NARRATIVE: This 52 yo male patient reports to the ED with increased shortness of breath. The patient reports that he noticed his symptoms getting worse today. The patient reports that he was seen in the ED on Thursday with similar symptoms, but he feels worse today. The patient reports that he was given some additional medications (lasix and ativan) during his visit Thursday which helped over the weekend. The patient reports that he was seen by Dr. Waters last week, but he was not having his current symptoms at that time. The patient admitted to taking a Hydrocodone from his "nikita" for pain in his right shoulder. The patient denies to any other drug or ETOH use. Onset: Today Duration: Constant, Getting Worse Location: Reports: Chest Quality: Reports: Other Severity: Moderate Improves with: Reports: None Worsens with: Reports: None Associated Symptoms: Reports: Shortness of Breath, Weakness Chest Pain Score (Numeric/FACES): 5 - Related Data Allergies Allergy/AdvReac Type Severity Reaction Status Date / Time No Known Allergies Allergy Verified 07/03/17 10:32 Home Meds: Home Meds Carvedilol [Coreg] 6.25 mg PO BIDMEALS 10/18/15 [History] Lisinopril 2.5 mg PO DAILY #30 04/20/17 [Rx] Omeprazole 20 mg PO ACBREAKFAST 30 Days #30 cap.cr 04/20/17 [Rx] Potassium Chloride [Klor-Con 10] 20 meq PO DAILY #30 tab.er 04/20/17 [Rx] Sertraline [Zoloft] 50 mg PO DAILY 30 Days #30 tablet 04/20/17 [Rx] Spironolactone [Aldactone] 25 mg PO DAILY 30 Days #30 tablet 04/20/17 [Rx] Furosemide [Lasix] 40 mg PO BID 30 Days #60 tablet 06/27/17 [Rx] Past Medical History - Past Health History Medical/Surgical History: Denies Medical/Surgical History HEENT History: Reports: None Cardiovascular History: Reports: Blood Clots/VTE/DVT, Cardiomyopathy, Heart Failure, Hypertension, Pacemaker, SOB on Exertion Respiratory History: Reports: SOB Gastrointestinal History: Reports: Gastritis, GERD Genitourinary History: Reports: Other (See Below) Other Genitourinary History: liver issues r/t ETOH Musculoskeletal History: Reports: Arthritis, Other (See Below) Other Musculoskeletal History: torn left and right upper arm tendon. missed surgery 03/2017 Neurological History: Reports: None Psychiatric History: Reports: Addiction, Anxiety, Depression, Panic Attack Other Psychiatric History: Pt states that he has been in treatment for alcoholism many times, last times 10 years ago, and he quit drinking for 8 years Endocrine/Metabolic History: Reports: None Hematologic History: Reports: None Immunologic History: Reports: None Oncologic (Cancer) History: Reports: None Dermatologic History: Reports: None - Infectious Disease History Infectious Disease History: Reports: None - Past Surgical History Head Surgeries/Procedures: Reports: None Cardiovascular Surgical History: Reports: AICD, Percutaneous Transluminal Angioplasty Respiratory Surgical History: Reports: None GI Surgical History: Reports: None Male Surgical History: Reports: None Neurological Surgical History: Reports: None Musculoskeletal Surgical History: Reports: None Social & Family History - Family History Family Medical History: Noncontributory Cardiac: Reports: Hypertension Other Cardiac Family History: Dad and paternal grandmother have hypertension. Respiratory: Reports: Asthma Other Respiratory Family Hisory: Mom and dad have asthma. Endocrine/Metabolic: Reports: Diabetes, Type I Other Endocrine/Metabolic Family History: Dad and paternal grandmother have type I diabetes. - Tobacco Use Smoking Status *Q: Former Smoker Years of Tobacco use: 10 Packs/Tins Daily: 1 Used Tobacco, but Quit: Yes Month/Year Tobacco Last Used: ? Second Hand Smoke Exposure: Yes - Caffeine Use Caffeine Use: Reports: Coffee - Alcohol Use Days Per Week of Alcohol Use: 1 Number of Drinks Per Day: 10 Total Drinks Per Week: 10 - Recreational Drug Use Recreational Drug Use: No Drug Use in Last 12 Months: Yes Recreational Drug Type: Reports: Marijuana/Hashish, Methamphetamine Other Recreational Drug Type: none in last week however Recreational Drug Use Frequency: Not Used In Over 1 Month Recreational Drug Last Use: few days ago - Living Situation & Occupation Living situation: Reports: with Family ED ROS GENERAL - Review of Systems Review Of Systems: ROS reveals no pertinent complaints other than HPI. ED EXAM, GENERAL - Physical Exam Exam: See Below Exam Limited By: No Limitations General Appearance: Alert, WD/WN, Moderate Distress Eye Exam: Bilateral Eye: EOMI, Normal Inspection, PERRL Ears: Normal External Exam, Normal Canal, Hearing Grossly Normal, Normal TMs Nose: Normal Inspection, Normal Mucosa, No Blood Throat/Mouth: Normal Inspection, Normal Lips, Normal Teeth, Normal Gums, Normal Oropharynx, Normal Voice, No Airway Compromise Head: Atraumatic, Normocephalic Neck: Normal Inspection, Supple, Non-Tender, Full Range of Motion Respiratory/Chest: No Accessory Muscle Use, Chest Non-Tender, Decreased Breath Sounds, Rhonchi (diffuse) Cardiovascular: Normal Peripheral Pulses, Regular Rate, Rhythm, No Edema, No Gallop, No JVD, No Murmur, No Rub GI/Abdominal: Normal Bowel Sounds, Soft, Non-Tender, No Organomegaly, No Distention, No Abnormal Bruit, No Mass (Male) Exam: Deferred Rectal (Males) Exam: Deferred Back Exam: Normal Inspection, Full Range of Motion, NT Extremities: Normal Inspection, Normal Range of Motion, Non-Tender, Normal Capillary Refill, No Pedal Edema Neurological: Alert, Oriented, CN II-XII Intact, Normal Cognition, Normal Gait, Normal Reflexes, No Motor/Sensory Deficits Psychiatric: Normal Affect, Normal Mood Skin Exam: Warm, Dry, Intact, Normal Color, No Rash Lymphatic: No Adenopathy Course - Vital Signs Last Recorded V/S: Last Vital Signs Temp 36.9 C 07/06/17 10:46 Pulse 107 H 07/06/17 10:46 Resp 14 07/06/17 10:46 BP 128/72 07/06/17 10:46 Pulse Ox 100 07/06/17 10:46 - Orders/Labs/Meds Orders: Active Orders 24 hr Category Date Time Status EKG Documentation Completion [RC] URGENT Care 07/06/17 10:41 Active DRUG SCREEN URINE BIORAD [URCHEM] Stat Lab 07/06/17 10:55 Ordered UA W/MICROSCOPIC [URIN] Stat Lab 07/06/17 10:55 Ordered Labs: Laboratory Tests 07/06/17 07/06/17 07/06/17 Range/Units 10:53 10:53 10:53 WBC 5.6 (5.0-10.0) 10^3/uL RBC 4.33 L (4.6-6.2) 10^6/uL Hgb 12.4 L (14.0-18.0) g/dL Hct 38.2 L (40.0-54.0) % MCV 88.2 (80-100) fL MCH 28.6 (27.0-34.0) pg MCHC 32.5 L (33.0-35.0) g/dL Plt Count 237 (150-450) 10^3/uL Neut % (Auto) 65.0 (42.2-75.2) % Lymph % (Auto) 23.2 (20.5-50.1) % [place] % (Auto) 8.0 (2-8) % Eos % (Auto) 1.8 (1.0-3.0) % Baso % (Auto) 2.0 H (0.0-1.0) % Sodium 135 (135-145) mmol/L Potassium 4.4 (3.6-5.0) mmol/L Chloride 105 (101-111) mmol/L Carbon Dioxide 21.0 (21.0-31.0) mmol/L Anion Gap 13.4 BUN 19 H (7-18) mg/dL Creatinine 1.0 (0.6-1.3) mg/dL Est Cr Clr Drug Dosing 88.38 mL/min Estimated GFR (MDRD) > 60 BUN/Creatinine Ratio 19.00 Glucose 98 (74-105) mg/dL Calcium 8.9 (8.4-10.2) mg/dl Total Bilirubin 3.1 H (0.2-1.0) mg/dL AST 30 (10-42) IU/L ALT 17 (10-60) IU/L Alkaline Phosphatase 87 (42-121) IU/L Troponin I 0.04 H* (0.00-0.02) ng/ml B-Natriuretic Peptide 4380 H (0-100) pg/ml Total Protein 7.8 (6.7-8.2) g/dl Albumin 3.0 L (3.2-5.5) g/dl Globulin 4.8 Albumin/Globulin Ratio 0.63 Urine Color (YELLOW) Urine Appearance (CLEAR) Urine pH (5.0-9.0) Ur Specific [place] (1.005-1.030) Urine Protein (NEGATIVE) Urine Glucose (UA) (NEGATIVE) Urine Ketones (NEGATIVE) Urine Occult Blood (NEGATIVE) Urine Nitrite (NEGATIVE) Urine Bilirubin (NEGATIVE) Urine Urobilinogen (0.2-1.0) mg/dL Ur Leukocyte Esterase (NEGATIVE) Urine RBC /HPF Urine WBC (0-5/HPF) /HPF Ur Epithelial Cells /HPF Amorphous Sediment (0/HPF) /HPF Urine Bacteria (0-FEW/HPF) /HPF Hyaline Casts /LPF Fine Granular Casts (0/LPF) /LPF Urine Mucus /LPF Urine Opiates Screen (NEGATIVE) Ur Oxycodone Screen (NEGATIVE) Urine Methadone Screen (NEGATIVE) Ur Barbiturates Screen (NEGATIVE) U Tricyclic Antidepress (NEGATIVE) Ur Phencyclidine Scrn (NEGATIVE) Ur Amphetamine Screen (NEGATIVE) U Methamphetamines Scrn (NEGATIVE) Urine MDMA Screen (NEGATIVE) U Benzodiazepines Scrn (NEGATIVE) Urine Cocaine Screen (NEGATIVE) U Marijuana (THC) Screen (NEGATIVE) Ethyl Alcohol < 5 mg/dL 07/06/17 07/06/17 Range/Units 10:55 10:55 WBC (5.0-10.0) 10^3/uL RBC (4.6-6.2) 10^6/uL Hgb (14.0-18.0) g/dL Hct (40.0-54.0) % MCV (80-100) fL MCH (27.0-34.0) pg MCHC (33.0-35.0) g/dL Plt Count (150-450) 10^3/uL Neut % (Auto) (42.2-75.2) % Lymph % (Auto) (20.5-50.1) % [place] % (Auto) (2-8) % Eos % (Auto) (1.0-3.0) % Baso % (Auto) (0.0-1.0) % Sodium (135-145) mmol/L Potassium (3.6-5.0) mmol/L Chloride (101-111) mmol/L Carbon Dioxide (21.0-31.0) mmol/L Anion Gap BUN (7-18) mg/dL Creatinine (0.6-1.3) mg/dL Est Cr Clr Drug Dosing mL/min Estimated GFR (MDRD) BUN/Creatinine Ratio Glucose (74-105) mg/dL Calcium (8.4-10.2) mg/dl Total Bilirubin (0.2-1.0) mg/dL AST (10-42) IU/L ALT (10-60) IU/L Alkaline Phosphatase (42-121) IU/L Troponin I (0.00-0.02) ng/ml B-Natriuretic Peptide (0-100) pg/ml Total Protein (6.7-8.2) g/dl Albumin (3.2-5.5) g/dl Globulin Albumin/Globulin Ratio Urine Color Dark yellow (YELLOW) Urine Appearance Cloudy (CLEAR) Urine pH 5.5 (5.0-9.0) Ur Specific [place] 1.025 (1.005-1.030) Urine Protein >=300 H (NEGATIVE) Urine Glucose (UA) Negative (NEGATIVE) Urine Ketones Trace H (NEGATIVE) Urine Occult Blood Trace-intact H (NEGATIVE) Urine Nitrite Negative (NEGATIVE) Urine Bilirubin Moderate H (NEGATIVE) Urine Urobilinogen 2.0 H (0.2-1.0) mg/dL Ur Leukocyte Esterase Negative (NEGATIVE) Urine RBC 5-10 H /HPF Urine WBC 0-5 (0-5/HPF) /HPF Ur Epithelial Cells Few /HPF Amorphous Sediment Moderate (0/HPF) /HPF Urine Bacteria Rare (0-FEW/HPF) /HPF Hyaline Casts Many H /LPF Fine Granular Casts Moderate H (0/LPF) /LPF Urine Mucus Few H /LPF Urine Opiates Screen Positive H (NEGATIVE) Ur Oxycodone Screen Positive H (NEGATIVE) Urine Methadone Screen Negative (NEGATIVE) Ur Barbiturates Screen Negative (NEGATIVE) U Tricyclic Antidepress Negative (NEGATIVE) Ur Phencyclidine Scrn Negative (NEGATIVE) Ur Amphetamine Screen Negative (NEGATIVE) U Methamphetamines Scrn Negative (NEGATIVE) Urine MDMA Screen Negative (NEGATIVE) U Benzodiazepines Scrn Positive H (NEGATIVE) Urine Cocaine Screen Negative (NEGATIVE) U Marijuana (THC) Screen Negative (NEGATIVE) Ethyl Alcohol mg/dL Meds: Medications Discontinued Medications Generic Name Dose Route Start Last Admin Trade Name Freq PRN Reason Stop Dose Admin Furosemide 40 mg 07/06/17 11:35 Lasix IVPUSH 07/06/17 11:36 NOW ONE Furosemide 40 mg 07/06/17 11:57 Lasix IVPUSH 07/06/17 11:58 NOW ONE Departure - Departure Time of Disposition: 12:06 Disposition: Admitted As Inpatient 68 Condition: Fair Clinical Impression: Acute exacerbation of CHF (congestive heart failure) Qualifiers: Heart failure type: unspecified Qualified Code(s): I50.9 - Heart failure, unspecified - Discharge Information Care Plan Goals: Discussed the examination, history, lab results and treatments with Dr. Amaya. Dr. Amaya accepted the patient for continued evaluation and further management as an inpatient at [facility]. The patient was given an IV dose of Lasix (40 mg) while in the ED. - My Orders Last 24 Hours: My Active Orders 07/06/17 10:41 EKG Documentation Completion [RC] URGENT 07/06/17 10:55 DRUG SCREEN URINE BIORAD [URCHEM] Stat UA W/MICROSCOPIC [URIN] Stat - Assessment/Plan Last 24 Hours: My Active Orders 07/06/17 10:41 EKG Documentation Completion [RC] URGENT 07/06/17 10:55 DRUG SCREEN URINE BIORAD [URCHEM] Stat UA W/MICROSCOPIC [URIN] Stat
[2017-07-06 11:20] LABS: CHLORIDE,CL 105 mmol/L (101-111); SODIUM,NA 135 mmol/L (135-145)
--- NOTE | 2017-07-06 11:48 | CR ---
Clinical history: 52-year-old male who again presents in the emergency department with shortness of b reath. Interpretation: Upright PA/lateral chest films confirm markedly enlarged cardiac silhouette (cardiomy opathy and/or pericardial effusion) this patient with cardiac pacemaker on the left (pacer leads inta ct and unchanged since 03 July 2017). Chronic pulmonary artery congestion without new signs of alveolar edema or dependent pleural fluid ac cumulation. No new lung mass, hilar lymphadenopathy or focal lobar pneumonia. No atelectasis/collapse. No pneumot horax. CONCLUSION: No acute new cardiopulmonary abnormality since and 03 July films.
[~2017-07-06 12:08] MED LIST: Furosemide 40 MG/4 ML VIAL IVPUSH ONE
[2017-07-06] MEDS ORDERED: Ondansetron 4 MG Tab.DIS PO PRN (13:22)
[2017-07-06] MEDS ORDERED: Furosemide 40 MG/4 ML VIAL IVPUSH ONE (13:26)
[2017-07-06] MEDS: Acetaminophen 325 MG Tab PO PRN (15:00)
[2017-07-06] MEDS: Nicotine 14 MG/24 Hr Patch TRDERM SCH (15:00)
[2017-07-06] MEDS: Furosemide 40 MG Tab PO SCH (15:01)
[2017-07-06] MEDS: ALPRAZolam 0.5 MG Tab PO PRN (15:01)
[2017-07-06] MEDS: Carvedilol 6.25 MG Tab PO SCH (18:06)
--- NOTE | 2017-07-06 21:05 | HP ---
CHIEF COMPLAINT: Increasing shortness of breath. HISTORY OF PRESENTING ILLNESS: Mr. Jonathan Karimi is a 52-year-old male with a medical history significant for hypertension; hyperlipidemia; nonischemic cardiomyopathy with chronic congestive heart failure with systolic dysfunction, ejection fraction of 25%, status post pacemaker placed and AICD placed; chronic alcohol use; history of methamphetamine use, marijuana use, chronic tobacco use; and history of noncompliance with medical treatment plan, presented to the ER with complaints of increasing shortness of breath. He was evaluated in the ER 3 days back with similar complaints and was given IV Lasix and increased his oral dose of Lasix and got discharged, but today, he is coming back with increasing shortness of breath. At this time, the patient says that the shortness of breath began this morning after he walked 2 blocks to get his mail and started getting shortness of breath, and so came to the hospital. He grades the shortness of breath as 8/10 in intensity, which got aggravated on exertion, relieved with rest, associated with mild chest discomfort. Denies any fevers or chills in the last few days. Complains of having cough, which is dry in nature. Denies any abdominal pain. No nausea. No vomiting. No diarrhea. No dizziness. As per the patient, he says that he has been compliant with his medications. The patient denied any history of chest pains on exertion, but has dyspnea on exertion. No history of orthopnea or paroxysmal nocturnal dyspnea. The patient denied any history of hematemesis, hematochezia, or melenic stools. Normal bowel and bladder habits, otherwise. REVIEW OF SYSTEMS: A complete review of systems including skin, ear, nose, and throat, cardiovascular system, respiratory system, gastrointestinal system, genitourinary system, hematology, oncology, neurology, allergy, immunology, and constitutional were all evaluated and were negative except for the above-said notes. PAST MEDICAL HISTORY: Significant for hypertension, hyperlipidemia, chronic history of alcohol use, chronic history of tobacco use, chronic history of methamphetamine use, chronic congestive heart failure with systolic and diastolic dysfunction, ejection fraction of less than 25%, and noncompliance with medical treatment plan. PAST SURGICAL HISTORY: Significant for status post AICD placed, status post pacemaker placed, and history of lipoma resection. ALLERGY HISTORY: No known drug allergies. SOCIAL HISTORY: The patient continues to smoke tobacco, 5 to 8 cigarettes a day. History of occasional alcohol intake. The patient claims that his last methamphetamine use was 1 month back. FAMILY HISTORY: Significant for pacemaker and diabetes in his father and heart disease and diabetes in his paternal grandmother. HOME MEDICATIONS: Include: 1. Spironolactone 25 mg daily. 2. Zoloft 50 mg daily. 3. Potassium chloride 20 mEq daily. 4. Omeprazole 20 mg daily. 5. Lisinopril 2.5 mg daily. 6. Lasix 40 mg twice a day. 7. Coreg 6.25 mg twice a day. PHYSICAL EXAMINATION: Vital Signs: Temperature of 98.1, pulse of 114, blood pressure of 112/75, respiratory rate of 20, and saturating at 100% on room air. General Appearance: The patient is well oriented to time, place, and person. Follows commands spontaneously. Cardiovascular System: S1 and S2 heard with normal intensity. No gallops. Respiratory System: Mild crepitations at the bases. No wheezes. Abdomen: Soft. Bowel sounds positive. Nontender. No rigidity. No guarding. No rebound tenderness. Extremities: No edema in bilateral lower extremities. LABORATORY AND DIAGNOSTIC DATA: 1. WBC is 5.6, hemoglobin 12.4, hematocrit 38.2, and platelet count 237. 2. Sodium 135, potassium 4.4, chloride 105, bicarb 21, BUN 19, creatinine 1, and glucose 98. AST 30 and ALT 17. Troponin 0.04. B-natriuretic peptide 4380. 3. Urinalysis; negative for leukocyte esterase, negative for nitrites. 4. Urine toxicology screen; positive for opiates, positive for oxycodone, positive for benzodiazepine. 5. Ethyl alcohol is less than 5. 6. Chest x-ray shows no acute infiltrates. No pulmonary venous congestion noted. No pulmonary edema noted. 7. A 12-lead EKG shows paced rhythm. ASSESSMENT: 1. Chronic congestive heart failure with systolic and diastolic dysfunction with ejection fraction of 25%. 2. Hypertension. 3. Hyperlipidemia. 4. Chronic tobacco use. 5. Chronic alcohol use. 6. Opioid abuse. PLAN: 1. Congestive heart failure. Remains stable. Chest x-ray does not show any evidence of congestion. There is no jugular venous distention. No edema to the lower extremities. Has mild crepitations to the lung exam. The patient appears to be stable from his chronic congestive heart failure. His BNP is elevated, but his BNP has always been in the range of 3000 to 4000. The patient has received IV Lasix in the emergency room. The patient will be referred to observation status. We will have him on Lasix 40 mg q.12 hourly and closely monitor input, output, and daily weights. His shortness of breath and CHF exacerbation comes from exertion and also from drug use. The patient was explained about the importance of being compliant with medications, diet, and exercise. He has a followup appointment coming up at [facility] next week as per the patient. 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 The patient was explained about ill effects of tobacco use and also drugs on his heart and strictly encouraged him to quit smoking. 2. Hypertension. The patient's blood pressure seems to be in acceptable range. Continue with current antihypertensive medication. 3. DVT prophylaxis. We will have him on Lovenox for DVT prophylaxis. 4. Chronic tobacco use. The patient is educated about tobacco cessation and strongly encouraged him to quit smoking. We will have him on nicotine transdermal patch while in the hospital. 5. Chronic opioid use. The patient is requesting for oxycodone for pain control. The patient does not have any overt reason to be on opioid pain medication. He is discouraged from using any opioid pain medications. We will have him on Tylenol 650 for pain. 6. Code status. The patient wants to be full code. Discussed with Dr. Kwame Self, the ER physician, regarding the plan of care. Reviewed the labs and medications. Reviewed the old charts. [facility] /[id number]
[2017-07-07] MEDS: Calcium Carbonate 500 MG Tab.Chew PO PRN ×2 (00:42→10:52)
[2017-07-07] MEDS: Acetaminophen 325 MG Tab PO PRN ×2 (03:38→16:44)
[2017-07-07] MEDS: ALPRAZolam 0.5 MG Tab PO PRN ×2 (03:41→10:52)
[2017-07-07 05:23] LABS: CHLORIDE,CL 107 mmol/L (101-111); SODIUM,NA 135 mmol/L (135-145)
[2017-07-07] MEDS: Omeprazole 20 MG Cap.CR PO SCH (06:34)
--- NOTE | 2017-07-07 07:35 | EKG ---
07/06/2017- MANNIE MEREDITH - FINDINGS: Twelve-lead EKG shows ventricular paced complex with heart rate of 108. No further interpretation could be made secondary to the paced complexes. [facility] /[id number]
[2017-07-07] MEDS: Nicotine 14 MG/24 Hr Patch TRDERM SCH ×2 (07:58→08:11)
[2017-07-07] MEDS: Spironolactone 25 MG Tab PO SCH (08:00)
[2017-07-07] MEDS: Sertraline 50 MG Tab PO SCH (08:00)
[2017-07-07] MEDS: Furosemide 40 MG Tab PO SCH ×3 (08:00→13:01)
[2017-07-07] MEDS: Enoxaparin 40 MG/0.4 ML Syringe SUBCUT SCH (08:00)
[2017-07-07] MEDS: Potassium Chloride 10 MEQ Tab.ER PO SCH (08:00)
[2017-07-07] MEDS: Lisinopril 5 MG Tab PO SCH (08:10)
[2017-07-07] MEDS: Carvedilol 6.25 MG Tab PO SCH ×3 (08:11→17:49)
[2017-07-07] MEDS: Sodium Chloride 0.9% 10 ML Syringe FLUSH PRN ×4 (08:22→16:53)
--- NOTE | 2017-07-07 08:50 | PCM.PN ---
- General Info Date of Service: 07/07/17 Subjective Update: Patient presented with increasing SOB and was subsequently admitted for acute on chronic systolic HF Has no complaints this morning except for thinking he is having withdrawal symptoms. Patient wanted to sign out AMA to take care of personal business but I advised him to stay and he agreed. Functional Status: Reports: Pain Controlled - Review of Systems General: Reports: No Symptoms HEENT: Reports: No Symptoms Pulmonary: Reports: No Symptoms Cardiovascular: Reports: No Symptoms Gastrointestinal: Reports: No Symptoms Genitourinary: Reports: No Symptoms Musculoskeletal: Reports: No Symptoms Skin: Reports: No Symptoms Neurological: Reports: No Symptoms Psychiatric: Reports: No Symptoms - Patient Data Vitals - Most Recent: Last Vital Signs Temp 98.1 F 07/07/17 07:00 Pulse 106 H 07/07/17 08:11 Resp 20 07/07/17 07:00 BP 96/75 07/07/17 08:11 Pulse Ox 99 07/07/17 07:00 Weight - Most Recent: 171 lb 6 oz I&O - Last 24 Hours: Intake & Output 07/06/17 07/07/17 07/07/17 22:59 06:59 14:59 Intake Total 790 225 Output Total 500 200 Balance 290 25 Lab Results Last 24 Hours: Laboratory Results - last 24 hr 07/06/17 07/06/17 07/06/17 Range/Units 10:53 10:53 10:53 WBC 5.6 (5.0-10.0) 10^3/uL RBC 4.33 L (4.6-6.2) 10^6/uL Hgb 12.4 L (14.0-18.0) g/dL Hct 38.2 L (40.0-54.0) % MCV 88.2 (80-100) fL MCH 28.6 (27.0-34.0) pg MCHC 32.5 L (33.0-35.0) g/dL Plt Count 237 (150-450) 10^3/uL Neut % (Auto) 65.0 (42.2-75.2) % Lymph % (Auto) 23.2 (20.5-50.1) % [place] % (Auto) 8.0 (2-8) % Eos % (Auto) 1.8 (1.0-3.0) % Baso % (Auto) 2.0 H (0.0-1.0) % Sodium 135 (135-145) mmol/L Potassium 4.4 (3.6-5.0) mmol/L Chloride 105 (101-111) mmol/L Carbon Dioxide 21.0 (21.0-31.0) mmol/L Anion Gap 13.4 BUN 19 H (7-18) mg/dL Creatinine 1.0 (0.6-1.3) mg/dL Est Cr Clr Drug Dosing 88.38 mL/min Estimated GFR (MDRD) > 60 BUN/Creatinine Ratio 19.00 Glucose 98 (74-105) mg/dL Calcium 8.9 (8.4-10.2) mg/dl Total Bilirubin 3.1 H (0.2-1.0) mg/dL AST 30 (10-42) IU/L ALT 17 (10-60) IU/L Alkaline Phosphatase 87 (42-121) IU/L Troponin I 0.04 H* (0.00-0.02) ng/ml B-Natriuretic Peptide 4380 H (0-100) pg/ml Total Protein 7.8 (6.7-8.2) g/dl Albumin 3.0 L (3.2-5.5) g/dl Globulin 4.8 Albumin/Globulin Ratio 0.63 Urine Color (YELLOW) Urine Appearance (CLEAR) Urine pH (5.0-9.0) Ur Specific [place] (1.005-1.030) Urine Protein (NEGATIVE) Urine Glucose (UA) (NEGATIVE) Urine Ketones (NEGATIVE) Urine Occult Blood (NEGATIVE) Urine Nitrite (NEGATIVE) Urine Bilirubin (NEGATIVE) Urine Urobilinogen (0.2-1.0) mg/dL Ur Leukocyte Esterase (NEGATIVE) Urine RBC /HPF Urine WBC (0-5/HPF) /HPF Ur Epithelial Cells /HPF Amorphous Sediment (0/HPF) /HPF Urine Bacteria (0-FEW/HPF) /HPF Hyaline Casts /LPF Fine Granular Casts (0/LPF) /LPF Urine Mucus /LPF Urine Opiates Screen (NEGATIVE) Ur Oxycodone Screen (NEGATIVE) Urine Methadone Screen (NEGATIVE) Ur Barbiturates Screen (NEGATIVE) U Tricyclic Antidepress (NEGATIVE) Ur Phencyclidine Scrn (NEGATIVE) Ur Amphetamine Screen (NEGATIVE) U Methamphetamines Scrn (NEGATIVE) Urine MDMA Screen (NEGATIVE) U Benzodiazepines Scrn (NEGATIVE) Urine Cocaine Screen (NEGATIVE) U Marijuana (THC) Screen (NEGATIVE) Ethyl Alcohol < 5 mg/dL 07/06/17 07/06/17 07/06/17 Range/Units 10:55 10:55 16:05 WBC (5.0-10.0) 10^3/uL RBC (4.6-6.2) 10^6/uL Hgb (14.0-18.0) g/dL Hct (40.0-54.0) % MCV (80-100) fL MCH (27.0-34.0) pg MCHC (33.0-35.0) g/dL Plt Count (150-450) 10^3/uL Neut % (Auto) (42.2-75.2) % Lymph % (Auto) (20.5-50.1) % [place] % (Auto) (2-8) % Eos % (Auto) (1.0-3.0) % Baso % (Auto) (0.0-1.0) % Sodium (135-145) mmol/L Potassium (3.6-5.0) mmol/L Chloride (101-111) mmol/L Carbon Dioxide (21.0-31.0) mmol/L Anion Gap BUN (7-18) mg/dL Creatinine (0.6-1.3) mg/dL Est Cr Clr Drug Dosing mL/min Estimated GFR (MDRD) BUN/Creatinine Ratio Glucose (74-105) mg/dL Calcium (8.4-10.2) mg/dl Total Bilirubin (0.2-1.0) mg/dL AST (10-42) IU/L ALT (10-60) IU/L Alkaline Phosphatase (42-121) IU/L Troponin I 0.06 H* (0.00-0.02) ng/ml B-Natriuretic Peptide (0-100) pg/ml Total Protein (6.7-8.2) g/dl Albumin (3.2-5.5) g/dl Globulin Albumin/Globulin Ratio Urine Color Dark yellow (YELLOW) Urine Appearance Cloudy (CLEAR) Urine pH 5.5 (5.0-9.0) Ur Specific [place] 1.025 (1.005-1.030) Urine Protein >=300 H (NEGATIVE) Urine Glucose (UA) Negative (NEGATIVE) Urine Ketones Trace H (NEGATIVE) Urine Occult Blood Trace-intact H (NEGATIVE) Urine Nitrite Negative (NEGATIVE) Urine Bilirubin Moderate H (NEGATIVE) Urine Urobilinogen 2.0 H (0.2-1.0) mg/dL Ur Leukocyte Esterase Negative (NEGATIVE) Urine RBC 5-10 H /HPF Urine WBC 0-5 (0-5/HPF) /HPF Ur Epithelial Cells Few /HPF Amorphous Sediment Moderate (0/HPF) /HPF Urine Bacteria Rare (0-FEW/HPF) /HPF Hyaline Casts Many H /LPF Fine Granular Casts Moderate H (0/LPF) /LPF Urine Mucus Few H /LPF Urine Opiates Screen Positive H (NEGATIVE) Ur Oxycodone Screen Positive H (NEGATIVE) Urine Methadone Screen Negative (NEGATIVE) Ur Barbiturates Screen Negative (NEGATIVE) U Tricyclic Antidepress Negative (NEGATIVE) Ur Phencyclidine Scrn Negative (NEGATIVE) Ur Amphetamine Screen Negative (NEGATIVE) U Methamphetamines Scrn Negative (NEGATIVE) Urine MDMA Screen Negative (NEGATIVE) U Benzodiazepines Scrn Positive H (NEGATIVE) Urine Cocaine Screen Negative (NEGATIVE) U Marijuana (THC) Screen Negative (NEGATIVE) Ethyl Alcohol mg/dL 07/07/17 07/07/17 Range/Units 04:52 04:52 WBC (5.0-10.0) 10^3/uL RBC (4.6-6.2) 10^6/uL Hgb (14.0-18.0) g/dL Hct (40.0-54.0) % MCV (80-100) fL MCH (27.0-34.0) pg MCHC (33.0-35.0) g/dL Plt Count (150-450) 10^3/uL Neut % (Auto) (42.2-75.2) % Lymph % (Auto) (20.5-50.1) % [place] % (Auto) (2-8) % Eos % (Auto) (1.0-3.0) % Baso % (Auto) (0.0-1.0) % Sodium 135 (135-145) mmol/L Potassium 3.9 (3.6-5.0) mmol/L Chloride 107 (101-111) mmol/L Carbon Dioxide 22.0 (21.0-31.0) mmol/L Anion Gap 9.9 BUN 20 H (7-18) mg/dL Creatinine 1.0 (0.6-1.3) mg/dL Est Cr Clr Drug Dosing 88.38 mL/min Estimated GFR (MDRD) > 60 BUN/Creatinine Ratio Glucose 113 H (74-105) mg/dL Calcium 9.1 (8.4-10.2) mg/dl Total Bilirubin (0.2-1.0) mg/dL AST (10-42) IU/L ALT (10-60) IU/L Alkaline Phosphatase (42-121) IU/L Troponin I 0.03 H* (0.00-0.02) ng/ml B-Natriuretic Peptide (0-100) pg/ml Total Protein (6.7-8.2) g/dl Albumin (3.2-5.5) g/dl Globulin Albumin/Globulin Ratio Urine Color (YELLOW) Urine Appearance (CLEAR) Urine pH (5.0-9.0) Ur Specific [place] (1.005-1.030) Urine Protein (NEGATIVE) Urine Glucose (UA) (NEGATIVE) Urine Ketones (NEGATIVE) Urine Occult Blood (NEGATIVE) Urine Nitrite (NEGATIVE) Urine Bilirubin (NEGATIVE) Urine Urobilinogen (0.2-1.0) mg/dL Ur Leukocyte Esterase (NEGATIVE) Urine RBC /HPF Urine WBC (0-5/HPF) /HPF Ur Epithelial Cells /HPF Amorphous Sediment (0/HPF) /HPF Urine Bacteria (0-FEW/HPF) /HPF Hyaline Casts /LPF Fine Granular Casts (0/LPF) /LPF Urine Mucus /LPF Urine Opiates Screen (NEGATIVE) Ur Oxycodone Screen (NEGATIVE) Urine Methadone Screen (NEGATIVE) Ur Barbiturates Screen (NEGATIVE) U Tricyclic Antidepress (NEGATIVE) Ur Phencyclidine Scrn (NEGATIVE) Ur Amphetamine Screen (NEGATIVE) U Methamphetamines Scrn (NEGATIVE) Urine MDMA Screen (NEGATIVE) U Benzodiazepines Scrn (NEGATIVE) Urine Cocaine Screen (NEGATIVE) U Marijuana (THC) Screen (NEGATIVE) Ethyl Alcohol mg/dL Med Orders - Current: Current Medications Acetaminophen (Tylenol) 650 mg PO Q4H PRN PRN Reason: Pain (Mild 1-3)/fever Last Admin: 07/07/17 03:38 Dose: 650 mg Alprazolam (Xanax) 0.5 mg PO Q8H PRN PRN Reason: Anxiety Last Admin: 07/07/17 03:41 Dose: 0.5 mg Calcium Carbonate/Glycine (Tums) 500 mg PO Q2H PRN PRN Reason: Heartburn Last Admin: 07/07/17 00:42 Dose: 500 mg Carvedilol (Coreg) 6.25 mg PO BIDMEALS [facility] Last Admin: 07/07/17 08:11 Dose: 6.25 mg Enoxaparin Sodium (Lovenox) 40 mg SUBCUT DAILY [facility] Last Admin: 07/07/17 08:00 Dose: 40 mg Furosemide (Lasix) 40 mg PO BIDDIURETIC [facility] Last Admin: 07/07/17 08:00 Dose: 40 mg Lisinopril (Prinivil) 2.5 mg PO DAILY [facility] Last Admin: 07/07/17 08:10 Dose: 2.5 mg Nicotine (Habitrol) 14 mg TRDERM DAILY [facility] Last Admin: 07/07/17 08:11 Dose: 14 mg Omeprazole (Omeprazole) 20 mg PO ACBREAKFAST [facility] Last Admin: 07/07/17 06:34 Dose: 20 mg Ondansetron HCl (Zofran Odt) 4 mg PO Q4H PRN PRN Reason: nausea, able to take PO Potassium Chloride (Klor-Con 10) 20 meq PO DAILY@0800 [facility] Last Admin: 07/07/17 08:00 Dose: 20 meq Sertraline HCl (Zoloft) 50 mg PO DAILY [facility] Last Admin: 07/07/17 08:00 Dose: 50 mg Sodium Chloride (Saline Flush) 10 ml FLUSH ASDIRECTED PRN PRN Reason: Keep Vein Open Last Admin: 07/07/17 08:22 Dose: 10 ml Spironolactone (Aldactone) 25 mg PO DAILY [facility] Last Admin: 07/07/17 08:00 Dose: 25 mg Discontinued Medications Furosemide (Lasix) 40 mg IVPUSH NOW ONE Stop: 07/06/17 11:36 Last Admin: 07/06/17 12:08 Dose: 40 mg Furosemide (Lasix) 40 mg IVPUSH NOW ONE Stop: 07/06/17 11:58 Last Admin: 07/06/17 13:18 Dose: Not Given Furosemide (Lasix) 40 mg IVPUSH NOW ONE Stop: 07/06/17 13:27 Last Admin: 07/06/17 13:45 Dose: Not Given - Exam General: Alert, Oriented HEENT: Pupils Equal, Pupils Reactive, EOMI, Mucous Membr. Moist/[place] Neck: Supple Lungs: Clear to Auscultation, Normal Respiratory Effort Cardiovascular: Regular Rate, Regular Rhythm GI/Abdominal Exam: Normal Bowel Sounds, Soft, Non-Tender, No Organomegaly, No Distention, No Abnormal Bruit, No Mass, Pelvis Stable (Male) Exam: No Hernia, Normal Inspection, Normal Prostate, Circumcised Back Exam: Normal Inspection, Full Range of Motion Extremities: Normal Inspection, Normal Range of Motion, Non-Tender, No Pedal Edema, Normal Capillary Refill Skin: Warm, Dry, Intact Wound/Incisions: Healing Well Neurological: No New Focal Deficit Psy/Mental Status: Alert, Normal Affect, Normal Mood - Problem List & Annotations (1) Abdominal pain SNOMED Code(s): 23488630 Code(s): R10.9 - UNSPECIFIED ABDOMINAL PAIN Status: Acute Current Visit: No Qualifiers: Abdominal location: right upper quadrant Qualified Code(s): R10.11 - Right upper quadrant pain (2) Acute exacerbation of CHF (congestive heart failure) SNOMED Code(s): 39146916 Code(s): I50.9 - HEART FAILURE, UNSPECIFIED Status: Acute Current Visit: No Qualifiers: Qualified Code(s): I50.9 - Heart failure, unspecified (3) Acute exacerbation of congestive heart failure SNOMED Code(s): 70486259 Code(s): I50.9 - HEART FAILURE, UNSPECIFIED Status: Acute Current Visit: No Qualifiers: Heart failure type: unspecified Qualified Code(s): I50.9 - Heart failure, unspecified (4) Alcohol withdrawal SNOMED Code(s): 934754882 Code(s): F10.239 - ALCOHOL DEPENDENCE WITH WITHDRAWAL, UNSPECIFIED Status: Acute Current Visit: No Qualifiers: Complication of substance-induced condition: uncomplicated Qualified Code(s ): F10.230 - Alcohol dependence with withdrawal, uncomplicated - Problem List Review Problem List Initiated/Reviewed/Updated: Yes - Plan Plan:: #Acute systolic HF exacerbation due to medication non-compliant Continue Lasix 40 mg bid continue current cardiac meds Strict I/O #Hypertension Continue current medications #HLD Continue current care #H/o opioid/alcohol abuse Will monitor for withdrawal symptoms #Chronic tobacco abuse Advised to quit DVT ppx Lovenox SQ #Full code
[2017-07-07] MEDS ORDERED: LORazepam 2 MG/ML Syringe IVPUSH PRN (11:02)
[2017-07-07] MEDS: LORazepam 2 MG/ML Syringe IVPUSH PRN ×4 (12:39→22:21)
[2017-07-07] MEDS: Albuterol/Ipratropium 3.0-0.5 MG/3 ML Neb Soln NEB PRN ×2 (13:13→17:57)
[2017-07-08] MEDS: Acetaminophen 325 MG Tab PO PRN (02:00)
[2017-07-08] MEDS: LORazepam 2 MG/ML Syringe IVPUSH PRN (04:24)
[2017-07-08] MEDS: Omeprazole 20 MG Cap.CR PO SCH (05:37)
[2017-07-08 06:59] LABS: CHLORIDE,CL 106 mmol/L (101-111); SODIUM,NA 136 mmol/L (135-145)
[2017-07-08] MEDS: Furosemide 40 MG Tab PO SCH (09:21)
[2017-07-08] MEDS: Carvedilol 6.25 MG Tab PO SCH (09:22)
[2017-07-08] MEDS: Lisinopril 5 MG Tab PO SCH (09:22)
[2017-07-08] MEDS: Nicotine 14 MG/24 Hr Patch TRDERM SCH (09:23)
[2017-07-08] MEDS: Sertraline 50 MG Tab PO SCH (09:23)
[2017-07-08] MEDS: Spironolactone 25 MG Tab PO SCH (09:23)
[2017-07-08] MEDS: Potassium Chloride 10 MEQ Tab.ER PO SCH (09:23)
[2017-07-08] MEDS: Enoxaparin 40 MG/0.4 ML Syringe SUBCUT SCH (09:23)
[2017-07-08 09:24] VITALS: BP 97/82
--- NOTE | 2017-07-08 14:57 | PCM.DCSUM1 ---
Discharge Summary - Hospital Course Free Text/Narrative:: Patient presented with SOB and admitted for acute systolic HF exacerbation. He signed out against medical advise. I advised patient not to sign out. I explained to him the dangers of signing out AMA including worsening of his condition and possible . He expressed understanding and still insisted to sign out against medical advise. He was advised to follow up with his PCP as soon as possible and agreed to follow up. - Discharge Data Discharge Date: 07/08/17 Discharge Disposition: Against Medical Advice 07 Condition: Good - Discharge Diagnosis/Problem(s) (1) Abdominal pain SNOMED Code(s): 60806521 ICD Code: R10.9 - UNSPECIFIED ABDOMINAL PAIN Status: Acute Qualifiers: Abdominal location: right upper quadrant Qualified Code(s): R10.11 - Right upper quadrant pain (2) Acute exacerbation of CHF (congestive heart failure) SNOMED Code(s): 58607987 ICD Code: I50.9 - HEART FAILURE, UNSPECIFIED Status: Acute Qualifiers: Qualified Code(s): I50.9 - Heart failure, unspecified (3) Acute exacerbation of congestive heart failure SNOMED Code(s): 59065527 ICD Code: I50.9 - HEART FAILURE, UNSPECIFIED Status: Acute Qualifiers: Heart failure type: unspecified Qualified Code(s): I50.9 - Heart failure, unspecified (4) Alcohol withdrawal SNOMED Code(s): 633775658 ICD Code: F10.239 - ALCOHOL DEPENDENCE WITH WITHDRAWAL, UNSPECIFIED Status : Acute Qualifiers: Complication of substance-induced condition: uncomplicated Qualified Code(s ): F10.230 - Alcohol dependence with withdrawal, uncomplicated - Discharge Plan Home Medications: Home Meds Carvedilol [Coreg] 6.25 mg PO BIDMEALS 10/18/15 [History] Lisinopril 2.5 mg PO DAILY #30 04/20/17 [Rx] Omeprazole 20 mg PO ACBREAKFAST 30 Days #30 cap.cr 04/20/17 [Rx] Potassium Chloride [Klor-Con 10] 20 meq PO DAILY #30 tab.er 04/20/17 [Rx] Sertraline [Zoloft] 50 mg PO DAILY 30 Days #30 tablet 04/20/17 [Rx] Spironolactone [Aldactone] 25 mg PO DAILY 30 Days #30 tablet 04/20/17 [Rx] Furosemide [Lasix] 40 mg PO BID 30 Days #60 tablet 06/27/17 [Rx] Patient Handouts: Heart Failure, [id number] - Patient Data Vitals - Most Recent: Last Vital Signs Temp 97.8 F 07/08/17 07:00 Pulse 78 07/08/17 09:22 Resp 18 07/08/17 07:00 BP 97/82 07/08/17 09:22 Pulse Ox 98 07/08/17 07:00 Weight - Most Recent: 171 lb 6 oz I&O - Last 24 hours: Intake & Output 07/07/17 07/08/17 07/08/17 22:59 06:59 14:59 Intake Total 240 600 500 Balance 240 600 500 Lab Results - Last 24 hrs: Laboratory Results - last 24 hr 07/08/17 Range/Units 05:48 Sodium 136 (135-145) mmol/L Potassium 3.7 (3.6-5.0) mmol/L Chloride 106 (101-111) mmol/L Carbon Dioxide 21.0 (21.0-31.0) mmol/L Anion Gap 12.7 BUN 22 H (7-18) mg/dL Creatinine 0.9 (0.6-1.3) mg/dL Est Cr Clr Drug Dosing 98.19 mL/min Estimated GFR (MDRD) > 60 Glucose 90 (74-105) mg/dL Calcium 8.9 (8.4-10.2) mg/dl B-Natriuretic Peptide 3570 H (0-100) pg/ml Med Orders - Current: Current Medications Discontinued Medications Acetaminophen (Tylenol) 650 mg PO Q4H PRN PRN Reason: Pain (Mild 1-3)/fever Last Admin: 07/08/17 02:00 Dose: 650 mg Albuterol/Ipratropium (Duoneb 3.0-0.5 Mg/3 Ml) 3 ml NEB Q6HRRT PRN PRN Reason: Shortness of Breath Last Admin: 07/07/17 17:57 Dose: 3 ml Alprazolam (Xanax) 0.5 mg PO Q8H PRN PRN Reason: Anxiety Last Admin: 07/07/17 10:52 Dose: 0.5 mg Calcium Carbonate/Glycine (Tums) 500 mg PO Q2H PRN PRN Reason: Heartburn Last Admin: 07/07/17 10:52 Dose: 500 mg Carvedilol (Coreg) 6.25 mg PO BIDMEALS [facility] Last Admin: 07/08/17 09:22 Dose: 6.25 mg Enoxaparin Sodium (Lovenox) 40 mg SUBCUT DAILY [facility] Last Admin: 07/08/17 09:23 Dose: 40 mg Furosemide (Lasix) 40 mg IVPUSH NOW ONE Stop: 07/06/17 11:36 Last Admin: 07/06/17 12:08 Dose: 40 mg Furosemide (Lasix) 40 mg IVPUSH NOW ONE Stop: 07/06/17 11:58 Last Admin: 07/06/17 13:18 Dose: Not Given Furosemide (Lasix) 40 mg PO BIDDIURETIC [facility] Last Admin: 07/08/17 09:21 Dose: 40 mg Furosemide (Lasix) 40 mg IVPUSH NOW ONE Stop: 07/06/17 13:27 Last Admin: 07/06/17 13:45 Dose: Not Given Lisinopril (Prinivil) 2.5 mg PO DAILY [facility] Last Admin: 07/08/17 09:22 Dose: 2.5 mg Lorazepam (Ativan) 2 mg IVPUSH Q6H PRN PRN Reason: Anxiety Lorazepam (Ativan) 0 mg IVPUSH Q2H PRN; Protocol PRN Reason: Anxiety Last Admin: 07/08/17 04:24 Dose: 2 mg Nicotine (Habitrol) 14 mg TRDERM DAILY [facility] Last Admin: 07/08/17 09:23 Dose: 14 mg Omeprazole (Omeprazole) 20 mg PO ACBREAKFAST [facility] Last Admin: 07/08/17 05:37 Dose: 20 mg Ondansetron HCl (Zofran Odt) 4 mg PO Q4H PRN PRN Reason: nausea, able to take PO Potassium Chloride (Klor-Con 10) 20 meq PO DAILY@0800 [facility] Last Admin: 07/08/17 09:23 Dose: 20 meq Sertraline HCl (Zoloft) 50 mg PO DAILY [facility] Last Admin: 07/08/17 09:23 Dose: 50 mg Sodium Chloride (Saline Flush) 10 ml FLUSH ASDIRECTED PRN PRN Reason: Keep Vein Open Last Admin: 07/07/17 16:53 Dose: 10 ml Spironolactone (Aldactone) 25 mg PO DAILY [facility] Last Admin: 07/08/17 09:23 Dose: 25 mg
== END 2017-07-08 12:25 | disposition left against medical advice (07) ==
LOC: DL.ED 12:08 → UNDOADMOB 12:27 → DL.MS 12:27
PROVIDERS: ADMIT Internal Medicine; ATTEND Internal Medicine
DX: I11.0 Hypertensive heart disease with heart failure (principal); I50.23 Acute on chronic systolic (congestive) heart failure; R10.11 Right upper quadrant pain; F10.239 Alcohol dependence with withdrawal, unspecified; E78.5 Hyperlipidemia, unspecified; I42.8 Other cardiomyopathies; F17.210 Nicotine dependence, cigarettes, uncomplicated; F11.10 Opioid abuse, uncomplicated; K21.9 Gastro-esophageal reflux disease without esophagitis; F41.9 Anxiety disorder, unspecified; F32.9 Major depressive disorder, single episode, unspecified; Z91.14 Patient's other noncompliance with medication regimen; Z79.899 Other long term (current) drug therapy; Z95.0 Presence of cardiac pacemaker; Z95.810 Presence of automatic (implantable) cardiac defibrillator
CPT/HCPCS: 36415; 71046; 80048; 80053; 80305; 81001; 83880; 84484; 85025; 93005; 94010; 94640; 96374; 99285; A9270; G0480; J1650; J1940; J2060; J7050; 96372; 96375; 96376; G0378

== ENCOUNTER 2017-07-12 14:00 | Emergency (ER) | payer MEDICAID, OTHER ==
[2017-07-12 13:49] VITALS: BP 91/49
[2017-07-12] MEDS ORDERED: Sodium Chloride 0.9% 10 ML Syringe FLUSH PRN (14:17)
[2017-07-12 15:08] LABS: CHLORIDE,CL 101 mmol/L (101-111); SODIUM,NA 134 mmol/L (135-145)
[2017-07-12] MEDS ORDERED: Dicyclomine 10 MG Cap PO ONE (15:33)
[2017-07-12] MEDS ORDERED: hydrOXYzine HCl 25 MG Tab PO ONE (15:35)
[2017-07-12] MEDS ORDERED: Ondansetron 4 MG/2 ML SDV IV ONE (15:35)
--- NOTE | 2017-07-12 16:58 | EDM.PDOC ---
Scribed by Diann Nayak 07/12/17 5082 for Bernard Olson MD ED HPI GENERAL MEDICAL PROBLEM - General Chief Complaint: Respiratory Problem Stated Complaint: AMBULANCE Time Seen by Provider: 07/12/17 13:53 Source of Information: Reports: Patient, EMS, EMS Notes Reviewed, RN, RN Notes Reviewed History Limitations: Reports: No Limitations - History of Present Illness INITIAL COMMENTS - FREE TEXT/NARRATIVE: Patient presents by home with ambulance with EMS reporting that patient called with cough and congestion. On arrival to the emergency department the patient confidentially states that he is actually here because he is actually having withdrawal from Percocets. Patient states that he was abusing Percocet because he quit drinking alcohol and quit marijuana and methamphetamines a week ago and was using the Percocet to ease the transition. Onset: Gradual Duration: Getting Worse Quality: Reports: Ache Severity: Moderate Improves with: Reports: None Worsens with: Reports: None Associated Symptoms: Reports: No Other Symptoms Chest Pain Score (Numeric/FACES): 6 - Related Data Allergies Allergy/AdvReac Type Severity Reaction Status Date / Time No Known Allergies Allergy Verified 07/12/17 13:52 Home Meds: Home Meds Carvedilol [Coreg] 6.25 mg PO BIDMEALS 10/18/15 [History] Lisinopril 2.5 mg PO DAILY #30 04/20/17 [Rx] Omeprazole 20 mg PO ACBREAKFAST 30 Days #30 cap.cr 04/20/17 [Rx] Potassium Chloride [Klor-Con 10] 20 meq PO DAILY #30 tab.er 04/20/17 [Rx] Sertraline [Zoloft] 50 mg PO DAILY 30 Days #30 tablet 04/20/17 [Rx] Spironolactone [Aldactone] 25 mg PO DAILY 30 Days #30 tablet 04/20/17 [Rx] Furosemide [Lasix] 40 mg PO BID 30 Days #60 tablet 06/27/17 [Rx] Past Medical History - Past Health History Medical/Surgical History: Denies Medical/Surgical History HEENT History: Reports: None Cardiovascular History: Reports: Blood Clots/VTE/DVT, Cardiomyopathy, Heart Failure, Hypertension, Pacemaker, SOB on Exertion Respiratory History: Reports: SOB Gastrointestinal History: Reports: Gastritis, GERD Genitourinary History: Reports: Other (See Below) Other Genitourinary History: liver issues r/t ETOH Musculoskeletal History: Reports: Arthritis, Other (See Below) Other Musculoskeletal History: torn left and right upper arm tendon. missed surgery 03/2017 Neurological History: Reports: None Psychiatric History: Reports: Addiction, Anxiety, Depression, Panic Attack Other Psychiatric History: Pt states that he has been in treatment for alcoholism many times, last times 10 years ago, and he quit drinking for 8 years Endocrine/Metabolic History: Reports: None Hematologic History: Reports: None Immunologic History: Reports: None Oncologic (Cancer) History: Reports: None Dermatologic History: Reports: None - Infectious Disease History Infectious Disease History: Reports: None - Past Surgical History Head Surgeries/Procedures: Reports: None Cardiovascular Surgical History: Reports: AICD, Percutaneous Transluminal Angioplasty Respiratory Surgical History: Reports: None GI Surgical History: Reports: None Male Surgical History: Reports: None Neurological Surgical History: Reports: None Musculoskeletal Surgical History: Reports: None Social & Family History - Family History Family Medical History: Noncontributory Cardiac: Reports: Hypertension Other Cardiac Family History: Dad and paternal grandmother have hypertension. Respiratory: Reports: Asthma Other Respiratory Family Hisory: Mom and dad have asthma. Endocrine/Metabolic: Reports: Diabetes, Type I Other Endocrine/Metabolic Family History: Dad and paternal grandmother have type I diabetes. - Tobacco Use Smoking Status *Q: Current Every Day Smoker Years of Tobacco use: 10 Packs/Tins Daily: 0.5 Used Tobacco, but Quit: No Month/Year Tobacco Last Used: ? Second Hand Smoke Exposure: Yes - Caffeine Use Caffeine Use: Reports: Coffee - Alcohol Use Days Per Week of Alcohol Use: 1 Number of Drinks Per Day: 10 Total Drinks Per Week: 10 - Recreational Drug Use Recreational Drug Use: No Drug Use in Last 12 Months: Yes Recreational Drug Type: Reports: Marijuana/Hashish, Methamphetamine Other Recreational Drug Type: none in last week however Recreational Drug Use Frequency: Not Used In Over 1 Month Recreational Drug Last Use: few days ago - Living Situation & Occupation Living situation: Reports: with Family ED ROS GENERAL - Review of Systems Review Of Systems: ROS reveals no pertinent complaints other than HPI. ED EXAM, GENERAL - Physical Exam Exam: See Below Exam Limited By: No Limitations General Appearance: Alert, Other (chronically ill appearing) Eye Exam: Bilateral Eye: Normal Inspection Nose: Normal Inspection, Normal Mucosa, No Blood Throat/Mouth: Normal Lips, Normal Oropharynx, Normal Voice, No Airway Compromise Head: Atraumatic, Normocephalic Neck: Normal Inspection, Supple, Non-Tender, Full Range of Motion Respiratory/Chest: No Respiratory Distress, No Accessory Muscle Use, Chest Non- Tender, Decreased Breath Sounds Cardiovascular: Regular Rate, Rhythm, No Edema GI/Abdominal: Normal Bowel Sounds, Soft, Tender (mild epigastric tenderness.), Other (no peritoneal tenderness). No: Guarding, Rigid, Rebound (Male) Exam: Deferred Rectal (Males) Exam: Deferred Back Exam: Normal Inspection Extremities: Normal Inspection, Normal Range of Motion, Non-Tender, Normal Capillary Refill, No Pedal Edema Neurological: Alert, Oriented, CN II-XII Intact, Normal Cognition, No Motor/ Sensory Deficits Psychiatric: Anxious Skin Exam: Warm, Dry, Intact, Normal Color, No Rash EKG INTERPRETATION EKG Date: 07/12/17 Time: 14:53 Rhythm: Other (sinus rhythm) Rate (Beats/Min): 80 [place]: Normal P-Wave: Present (probable left atrial abnormality.) QRS: Wide (nonspecific IVD) ST-T: Other (flattening lateral T waves) QT: Normal Course - Vital Signs Last Recorded V/S: Last Vital Signs Temp 36.5 C 07/12/17 13:48 Pulse 84 07/12/17 13:48 Resp 16 07/12/17 13:48 BP 91/49 L 07/12/17 13:48 Pulse Ox 100 07/12/17 13:48 - Orders/Labs/Meds Orders: Active Orders 24 hr Category Date Time Status EKG 12 Lead [EKG Documentation Completion] [RC] STAT Care 07/12/17 14:18 Active Peripheral IV Care [RC] . DIRECTED Care 07/12/17 14:18 Active CULTURE BLOOD [BC] Stat Lab 07/12/17 14:33 Received CULTURE BLOOD [BC] Stat Lab 07/12/17 14:38 Received DRUG SCREEN URINE BIORAD [URCHEM] Stat Lab 07/12/17 14:00 Ordered UA W/MICROSCOPIC [URIN] Stat Lab 07/12/17 14:00 Ordered Sodium Chloride 0.9% [Saline Flush] Med 07/12/17 14:17 Active 10 ml FLUSH ASDIRECTED PRN Blood Culture x2 Reflex Set [OM.PC] Stat Oth 07/12/17 14:18 Ordered Peripheral IV Insertion Adult [OM.PC] Stat Oth 07/12/17 14:18 Ordered Medication Orders Sodium Chloride (Saline Flush) 10 ml FLUSH ASDIRECTED PRN PRN Reason: Keep Vein Open Last Admin: 07/12/17 14:54 Dose: 10 ml Labs: Laboratory Tests 07/12/17 07/12/17 07/12/17 Range/Units 14:00 14:00 14:33 WBC 4.4 L (5.0-10.0) 10^3/uL RBC 4.17 L (4.6-6.2) 10^6/uL Hgb 11.9 L (14.0-18.0) g/dL Hct 36.5 L (40.0-54.0) % MCV 87.5 (80-100) fL MCH 28.5 (27.0-34.0) pg MCHC 32.6 L (33.0-35.0) g/dL Plt Count 189 (150-450) 10^3/uL Neut % (Auto) 76.1 H (42.2-75.2) % Lymph % (Auto) 15.3 L (20.5-50.1) % Benson % (Auto) 6.3 (2-8) % Eos % (Auto) 1.4 (1.0-3.0) % Baso % (Auto) 0.9 (0.0-1.0) % Sodium (135-145) mmol/L Potassium (3.6-5.0) mmol/L Chloride (101-111) mmol/L Carbon Dioxide (21.0-31.0) mmol/L Anion Gap BUN (7-18) mg/dL Creatinine (0.6-1.3) mg/dL Est Cr Clr Drug Dosing mL/min Estimated GFR (MDRD) BUN/Creatinine Ratio Glucose (74-105) mg/dL Calcium (8.4-10.2) mg/dl Total Bilirubin (0.2-1.0) mg/dL AST (10-42) IU/L ALT (10-60) IU/L Alkaline Phosphatase (42-121) IU/L Creatine Kinase (26-174) IU/L Creatine Kinase Index (0-2.4) % CK-MB (CK-2) (0.4-4.7) ng/mL Troponin I (0.00-0.02) ng/ml B-Natriuretic Peptide (0-100) pg/ml Total Protein (6.7-8.2) g/dl Albumin (3.2-5.5) g/dl Globulin Albumin/Globulin Ratio Urine Color Dark yellow (YELLOW) Urine Appearance Clear (CLEAR) Urine pH 6.0 (5.0-9.0) Ur Specific Thompson 1.015 (1.005-1.030) Urine Protein 100 H (NEGATIVE) Urine Glucose (UA) Negative (NEGATIVE) Urine Ketones Negative (NEGATIVE) Urine Occult Blood Negative (NEGATIVE) Urine Nitrite Negative (NEGATIVE) Urine Bilirubin Small H (NEGATIVE) Urine Urobilinogen 4.0 H (0.2-1.0) mg/dL Ur Leukocyte Esterase Negative (NEGATIVE) Urine RBC 0-5 /HPF Urine WBC 0-5 (0-5/HPF) /HPF Ur Epithelial Cells Rare /HPF Urine Bacteria Rare (0-FEW/HPF) /HPF Urine Opiates Screen Negative (NEGATIVE) Ur Oxycodone Screen Positive H (NEGATIVE) Urine Methadone Screen Negative (NEGATIVE) Ur Barbiturates Screen Negative (NEGATIVE) U Tricyclic Antidepress Negative (NEGATIVE) Ur Phencyclidine Scrn Negative (NEGATIVE) Ur Amphetamine Screen Negative (NEGATIVE) U Methamphetamines Scrn Negative (NEGATIVE) Urine MDMA Screen Negative (NEGATIVE) U Benzodiazepines Scrn Positive H (NEGATIVE) Urine Cocaine Screen Negative (NEGATIVE) U Marijuana (THC) Screen Negative (NEGATIVE) Ethyl Alcohol mg/dL 18 07/12/17 Range/Units 14:33 14:33 WBC (5.0-10.0) 10^3/uL RBC (4.6-6.2) 10^6/uL Hgb (14.0-18.0) g/dL Hct (40.0-54.0) % MCV (80-100) fL MCH (27.0-34.0) pg MCHC (33.0-35.0) g/dL Plt Count (150-450) 10^3/uL Neut % (Auto) (42.2-75.2) % Lymph % (Auto) (20.5-50.1) % Benson % (Auto) (2-8) % Eos % (Auto) (1.0-3.0) % Baso % (Auto) (0.0-1.0) % Sodium 134 L (135-145) mmol/L Potassium 3.7 (3.6-5.0) mmol/L Chloride 101 (101-111) mmol/L Carbon Dioxide 26.0 (21.0-31.0) mmol/L Anion Gap 10.7 BUN 25 H (7-18) mg/dL Creatinine 0.8 (0.6-1.3) mg/dL Est Cr Clr Drug Dosing 110.47 mL/min Estimated GFR (MDRD) > 60 BUN/Creatinine Ratio 31.25 Glucose 114 H (74-105) mg/dL Calcium 8.8 (8.4-10.2) mg/dl Total Bilirubin 2.3 H (0.2-1.0) mg/dL AST 35 (10-42) IU/L ALT 19 (10-60) IU/L Alkaline Phosphatase 72 (42-121) IU/L Creatine Kinase 79 (26-174) IU/L Creatine Kinase Index 3.8 H (0-2.4) % CK-MB (CK-2) 3.00 (0.4-4.7) ng/mL Troponin I 0.02 (0.00-0.02) ng/ml B-Natriuretic Peptide 2200 H (0-100) pg/ml Total Protein 7.5 (6.7-8.2) g/dl Albumin 3.0 L (3.2-5.5) g/dl Globulin 4.5 Albumin/Globulin Ratio 0.67 Urine Color (YELLOW) Urine Appearance (CLEAR) Urine pH (5.0-9.0) Ur Specific Thompson (1.005-1.030) Urine Protein (NEGATIVE) Urine Glucose (UA) (NEGATIVE) Urine Ketones (NEGATIVE) Urine Occult Blood (NEGATIVE) Urine Nitrite (NEGATIVE) Urine Bilirubin (NEGATIVE) Urine Urobilinogen (0.2-1.0) mg/dL Ur Leukocyte Esterase (NEGATIVE) Urine RBC /HPF Urine WBC (0-5/HPF) /HPF Ur Epithelial Cells /HPF Urine Bacteria (0-FEW/HPF) /HPF Urine Opiates Screen (NEGATIVE) Ur Oxycodone Screen (NEGATIVE) Urine Methadone Screen (NEGATIVE) Ur Barbiturates Screen (NEGATIVE) U Tricyclic Antidepress (NEGATIVE) Ur Phencyclidine Scrn (NEGATIVE) Ur Amphetamine Screen (NEGATIVE) U Methamphetamines Scrn (NEGATIVE) Urine MDMA Screen (NEGATIVE) U Benzodiazepines Scrn (NEGATIVE) Urine Cocaine Screen (NEGATIVE) U Marijuana (THC) Screen (NEGATIVE) Ethyl Alcohol < 5 mg/dL Meds: Medications Generic Name Dose Route Start Last Admin Trade Name Jeremiahq PRN Reason Stop Dose Admin Sodium Chloride 10 ml 07/12/17 14:17 07/12/17 14:54 Saline Flush FLUSH 10 ml ASDIRECTED PRN Administration Keep Vein Open Discontinued Medications Generic Name Dose Route Start Last Admin Trade Name Frenikole PRN Reason Stop Dose Admin Dicyclomine HCl 20 mg 07/12/17 15:33 07/12/17 15:53 Bentyl PO 07/12/17 15:34 20 mg ONETIME ONE Administration Hydroxyzine HCl 25 mg 07/12/17 15:35 07/12/17 15:44 Atarax PO 07/12/17 15:36 25 mg ONETIME ONE Administration Ondansetron HCl 4 mg 07/12/17 15:35 07/12/17 15:44 Zofran IV 07/12/17 15:36 4 mg ONETIME ONE Administration Orphenadrine Citrate 60 mg 07/12/17 15:36 07/12/17 15:44 Norflex IM 07/12/17 15:37 60 mg ONETIME ONE Administration - Radiology Interpretation Free Text/Narrative:: Chest x-ray: No acute findings. No interval change. See rad report. Departure - Departure Time of Disposition: 16:52 Disposition: Home, Self-Care 01 Condition: Fair Clinical Impression: Oxycodone use disorder, moderate, Opiate withdrawal - Discharge Information Instructions: Chemical Dependency, Opioid Withdrawal Forms: ED Department Discharge Additional Instructions: Rx: Methocarbamol 750mg Rx: Dicyclomine 20mg Rx: Hydroxyzine 25mg Abstain from drug and alcohol use. Follow up in clinic for recheck in 2 to 3 days. - My Orders Last 24 Hours: My Active Orders 07/12/17 14:00 DRUG SCREEN URINE BIORAD [URCHEM] Stat UA W/MICROSCOPIC [URIN] Stat 07/12/17 14:17 Sodium Chloride 0.9% [Saline Flush] 10 ml FLUSH ASDIRECTED PRN 07/12/17 14:18 EKG 12 Lead [EKG Documentation Completion] [RC] STAT Peripheral IV Care [RC] . DIRECTED Blood Culture x2 Reflex Set [OM.PC] Stat Peripheral IV Insertion Adult [OM.PC] Stat 07/12/17 14:33 CULTURE BLOOD [BC] Stat 07/12/17 14:38 CULTURE BLOOD [BC] Stat - Assessment/Plan Last 24 Hours: My Active Orders 07/12/17 14:00 DRUG SCREEN URINE BIORAD [URCHEM] Stat UA W/MICROSCOPIC [URIN] Stat 07/12/17 14:17 Sodium Chloride 0.9% [Saline Flush] 10 ml FLUSH ASDIRECTED PRN 07/12/17 14:18 EKG 12 Lead [EKG Documentation Completion] [RC] STAT Peripheral IV Care [RC] . DIRECTED Blood Culture x2 Reflex Set [OM.PC] Stat Peripheral IV Insertion Adult [OM.PC] Stat 07/12/17 14:33 CULTURE BLOOD [BC] Stat 07/12/17 14:38 CULTURE BLOOD [BC] Stat I have read and agree with the documentation that has been completed regarding this visit. By signing this record, I attest that the documentation was completed in my physical presence and is an accurate record of the encounter.
--- NOTE | 2017-07-14 13:55 | EKG ---
07/12/2017 - MANNIE MEREDITH - FINDINGS: EKG per my reading, shows sinus rhythm at the rate of 80. MOD /[id number]
== END 2017-07-12 17:13 | disposition home or self-care (01) ==
LOC: DL.ED 14:00
DX: F11.23 Opioid dependence with withdrawal (principal); I11.0 Hypertensive heart disease with heart failure; I50.9 Heart failure, unspecified; F17.210 Nicotine dependence, cigarettes, uncomplicated; Z79.899 Other long term (current) drug therapy
CPT/HCPCS: 36415; 71046; 80053; 80305; 81001; 82550; 82553; 83880; 84484; 85025; 87040; 93005; 96372; 96374; 99284; A9270; G0480; J2360; J2405; J7050

== ENCOUNTER 2017-07-20 09:45 | Emergency (ER) | payer MEDICAID, OTHER ==
[2017-07-20 09:56] VITALS: BP 108/75
[2017-07-20] MEDS ORDERED: Sodium Chloride 0.9% 10 ML Syringe FLUSH PRN (10:05)
--- NOTE | 2017-07-20 10:05 | EDM.PDOC ---
ED HPI GENERAL MEDICAL PROBLEM - General Chief Complaint: Respiratory Problem Stated Complaint: FACE SWELLING,CHEST CONGESTION.IN BY [facility] AMB Time Seen by Provider: 07/20/17 10:05 Source of Information: Reports: Patient, EMS, EMS Notes Reviewed, RN, RN Notes Reviewed History Limitations: Reports: No Limitations - History of Present Illness INITIAL COMMENTS - FREE TEXT/NARRATIVE: Pt presents to the ER per [facility] with c/o chest and head congestion. Patient states he has been having fever and chills, cough and congestion, SOB for about 3 days. He states he has intermittant N/V/D. He states he has been having swelling in the eyelids, but states the swelling in the lower legs has gone down. Onset: Gradual Onset Date: 07/17/17 Duration: Constant, Getting Worse Location: Reports: Head, Face, Chest Quality: Reports: Ache, Burning, Pressure Severity: Moderate Chest Pain Score (Numeric/FACES): 7 - Related Data Allergies Allergy/AdvReac Type Severity Reaction Status Date / Time No Known Allergies Allergy Verified 07/20/17 09:56 Home Meds: Home Meds Carvedilol [Coreg] 6.25 mg PO BIDMEALS 10/18/15 [History] Lisinopril 2.5 mg PO DAILY #30 04/20/17 [Rx] Omeprazole 20 mg PO ACBREAKFAST 30 Days #30 cap.cr 04/20/17 [Rx] Potassium Chloride [Klor-Con 10] 20 meq PO DAILY #30 tab.er 04/20/17 [Rx] Sertraline [Zoloft] 50 mg PO DAILY 30 Days #30 tablet 04/20/17 [Rx] Spironolactone [Aldactone] 25 mg PO DAILY 30 Days #30 tablet 04/20/17 [Rx] Furosemide [Lasix] 40 mg PO BID 30 Days #60 tablet 06/27/17 [Rx] Past Medical History - Past Health History Medical/Surgical History: Denies Medical/Surgical History HEENT History: Reports: None Cardiovascular History: Reports: Blood Clots/VTE/DVT, Cardiomyopathy, Heart Failure, Hypertension, Pacemaker, SOB on Exertion Respiratory History: Reports: SOB Gastrointestinal History: Reports: Gastritis, GERD Genitourinary History: Reports: Other (See Below) Other Genitourinary History: liver issues r/t ETOH Musculoskeletal History: Reports: Arthritis, Other (See Below) Other Musculoskeletal History: torn left and right upper arm tendon. missed surgery 03/2017 Neurological History: Reports: None Psychiatric History: Reports: Addiction, Anxiety, Depression, Panic Attack Other Psychiatric History: Pt states that he has been in treatment for alcoholism many times, last times 10 years ago, and he quit drinking for 8 years Endocrine/Metabolic History: Reports: None Hematologic History: Reports: None Immunologic History: Reports: None Oncologic (Cancer) History: Reports: None Dermatologic History: Reports: None - Infectious Disease History Infectious Disease History: Reports: None - Past Surgical History Head Surgeries/Procedures: Reports: None Cardiovascular Surgical History: Reports: AICD, Percutaneous Transluminal Angioplasty Respiratory Surgical History: Reports: None GI Surgical History: Reports: None Male Surgical History: Reports: None Neurological Surgical History: Reports: None Musculoskeletal Surgical History: Reports: None Social & Family History - Family History Family Medical History: Noncontributory Cardiac: Reports: Hypertension Other Cardiac Family History: Dad and paternal grandmother have hypertension. Respiratory: Reports: Asthma Other Respiratory Family Hisory: Mom and dad have asthma. Endocrine/Metabolic: Reports: Diabetes, Type I Other Endocrine/Metabolic Family History: Dad and paternal grandmother have type I diabetes. - Tobacco Use Smoking Status *Q: Current Every Day Smoker Years of Tobacco use: 10 Packs/Tins Daily: 0.5 Second Hand Smoke Exposure: No - Caffeine Use Caffeine Use: Reports: Coffee, Soda, Tea - Recreational Drug Use Recreational Drug Use: Yes Recreational Drug Type: Reports: Marijuana/Hashish, Methamphetamine - Living Situation & Occupation Living situation: Reports: with Family ED ROS GENERAL - Review of Systems Review Of Systems: ROS reveals no pertinent complaints other than HPI. ED EXAM, GENERAL - Physical Exam Exam: See Below Exam Limited By: No Limitations General Appearance: Alert, WD/WN, No Apparent Distress Eye Exam: Bilateral Eye: EOMI, Normal Inspection Ears: Normal External Exam, Hearing Grossly Normal Nose: Normal Inspection Throat/Mouth: Normal Inspection, Normal Voice, No Airway Compromise Head: Atraumatic, Normocephalic, Facial Swelling (minimal eyelid swelling) Neck: Normal Inspection, Full Range of Motion Respiratory/Chest: No Respiratory Distress, No Accessory Muscle Use, Chest Non- Tender, Rales (throughout), Rhonchi (throughout) Cardiovascular: Normal Peripheral Pulses, Regular Rate, Rhythm, No Gallop, No JVD, No Murmur, No Rub Peripheral Pulses: 2+: Radial (L), Radial (R) GI/Abdominal: Normal Bowel Sounds, Soft, Non-Tender, No Distention (Male) Exam: Deferred Rectal (Males) Exam: Deferred Back Exam: Normal Inspection, Full Range of Motion, NT Extremities: Normal Inspection, Normal Range of Motion, Non-Tender, No Pedal Edema, Normal Capillary Refill. No: Pedal Edema Neurological: Alert, Oriented, CN II-XII Intact, Normal Cognition, Normal Gait, Normal Reflexes, No Motor/Sensory Deficits Psychiatric: Normal Affect, Normal Mood Skin Exam: Warm, Dry, Intact, Normal Color, No Rash Lymphatic: No Adenopathy EKG INTERPRETATION EKG Date: 07/20/17 Time: 10:19 Rhythm: NSR Rate (Beats/Min): 93 [place]: Normal P-Wave: Present QRS: Wide Comparison: No Change Course - Vital Signs Last Recorded V/S: Last Vital Signs Temp 98.8 F 07/20/17 09:51 Pulse 88 07/20/17 09:51 Resp 16 07/20/17 09:51 BP 108/75 07/20/17 09:51 Pulse Ox 99 07/20/17 09:51 - Orders/Labs/Meds Orders: Active Orders 24 hr Category Date Time Status EKG Documentation Completion [RC] STAT Care 07/20/17 10:06 Active Peripheral IV Care [RC] . DIRECTED Care 07/20/17 10:06 Active DRUG SCREEN URINE BIORAD [URCHEM] Stat Lab 07/20/17 10:18 Ordered UA W/MICROSCOPIC [URIN] Stat Lab 07/20/17 10:18 Ordered Peripheral IV Insertion Adult [OM.PC] Stat Oth 07/20/17 10:05 Ordered Labs: Laboratory Tests 07/20/17 07/20/17 07/20/17 Range/Units 10:15 10:15 10:18 WBC 7.5 (5.0-10.0) 10^3/uL RBC 4.09 L (4.6-6.2) 10^6/uL Hgb 11.5 L (14.0-18.0) g/dL Hct 35.2 L (40.0-54.0) % MCV 86.1 (80-100) fL MCH 28.1 (27.0-34.0) pg MCHC 32.7 L (33.0-35.0) g/dL Plt Count 230 (150-450) 10^3/uL Neut % (Auto) 79.5 H (42.2-75.2) % Lymph % (Auto) 11.1 L (20.5-50.1) % [place] % (Auto) 7.9 (2-8) % Eos % (Auto) 1.2 (1.0-3.0) % Baso % (Auto) 0.3 (0.0-1.0) % Sodium 134 L (135-145) mmol/L Potassium 3.6 (3.6-5.0) mmol/L Chloride 101 (101-111) mmol/L Carbon Dioxide 27.0 (21.0-31.0) mmol/L Anion Gap 9.6 BUN 12 (7-18) mg/dL Creatinine 0.8 (0.6-1.3) mg/dL Est Cr Clr Drug Dosing 110.47 mL/min Estimated GFR (MDRD) > 60 BUN/Creatinine Ratio 15.00 Glucose 104 (74-105) mg/dL Calcium 8.3 L (8.4-10.2) mg/dl Total Bilirubin 2.5 H (0.2-1.0) mg/dL AST 26 (10-42) IU/L ALT 14 (10-60) IU/L Alkaline Phosphatase 86 (42-121) IU/L Troponin I 0.03 H* (0.00-0.02) ng/ml B-Natriuretic Peptide 2780 H (0-100) pg/ml Total Protein 6.9 (6.7-8.2) g/dl Albumin 2.8 L (3.2-5.5) g/dl Globulin 4.1 Albumin/Globulin Ratio 0.68 Urine Color Yellow (YELLOW) Urine Appearance Clear (CLEAR) Urine pH 7.5 (5.0-9.0) Ur Specific [place] 1.015 (1.005-1.030) Urine Protein Trace H (NEGATIVE) Urine Glucose (UA) Negative (NEGATIVE) Urine Ketones Trace H (NEGATIVE) Urine Occult Blood Negative (NEGATIVE) Urine Nitrite Negative (NEGATIVE) Urine Bilirubin Small H (NEGATIVE) Urine Urobilinogen >=8.0 H (0.2-1.0) mg/dL Ur Leukocyte Esterase Negative (NEGATIVE) Urine RBC 0-5 /HPF Urine WBC 0-5 (0-5/HPF) /HPF Ur Epithelial Cells Rare /HPF Amorphous Sediment Rare (0/HPF) /HPF Urine Bacteria Rare (0-FEW/HPF) /HPF Urine Mucus Rare /LPF Urine Opiates Screen (NEGATIVE) Ur Oxycodone Screen (NEGATIVE) Urine Methadone Screen (NEGATIVE) Ur Barbiturates Screen (NEGATIVE) U Tricyclic Antidepress (NEGATIVE) Ur Phencyclidine Scrn (NEGATIVE) Ur Amphetamine Screen (NEGATIVE) U Methamphetamines Scrn (NEGATIVE) Urine MDMA Screen (NEGATIVE) U Benzodiazepines Scrn (NEGATIVE) Urine Cocaine Screen (NEGATIVE) U Marijuana (THC) Screen (NEGATIVE) Ethyl Alcohol < 5 mg/dL 07/20/17 Range/Units 10:18 WBC (5.0-10.0) 10^3/uL RBC (4.6-6.2) 10^6/uL Hgb (14.0-18.0) g/dL Hct (40.0-54.0) % MCV (80-100) fL MCH (27.0-34.0) pg MCHC (33.0-35.0) g/dL Plt Count (150-450) 10^3/uL Neut % (Auto) (42.2-75.2) % Lymph % (Auto) (20.5-50.1) % [place] % (Auto) (2-8) % Eos % (Auto) (1.0-3.0) % Baso % (Auto) (0.0-1.0) % Sodium (135-145) mmol/L Potassium (3.6-5.0) mmol/L Chloride (101-111) mmol/L Carbon Dioxide (21.0-31.0) mmol/L Anion Gap BUN (7-18) mg/dL Creatinine (0.6-1.3) mg/dL Est Cr Clr Drug Dosing mL/min Estimated GFR (MDRD) BUN/Creatinine Ratio Glucose (74-105) mg/dL Calcium (8.4-10.2) mg/dl Total Bilirubin (0.2-1.0) mg/dL AST (10-42) IU/L ALT (10-60) IU/L Alkaline Phosphatase (42-121) IU/L Troponin I (0.00-0.02) ng/ml B-Natriuretic Peptide (0-100) pg/ml Total Protein (6.7-8.2) g/dl Albumin (3.2-5.5) g/dl Globulin Albumin/Globulin Ratio Urine Color (YELLOW) Urine Appearance (CLEAR) Urine pH (5.0-9.0) Ur Specific [place] (1.005-1.030) Urine Protein (NEGATIVE) Urine Glucose (UA) (NEGATIVE) Urine Ketones (NEGATIVE) Urine Occult Blood (NEGATIVE) Urine Nitrite (NEGATIVE) Urine Bilirubin (NEGATIVE) Urine Urobilinogen (0.2-1.0) mg/dL Ur Leukocyte Esterase (NEGATIVE) Urine RBC /HPF Urine WBC (0-5/HPF) /HPF Ur Epithelial Cells /HPF Amorphous Sediment (0/HPF) /HPF Urine Bacteria (0-FEW/HPF) /HPF Urine Mucus /LPF Urine Opiates Screen Negative (NEGATIVE) Ur Oxycodone Screen Positive H (NEGATIVE) Urine Methadone Screen Negative (NEGATIVE) Ur Barbiturates Screen Negative (NEGATIVE) U Tricyclic Antidepress Negative (NEGATIVE) Ur Phencyclidine Scrn Negative (NEGATIVE) Ur Amphetamine Screen Negative (NEGATIVE) U Methamphetamines Scrn Negative (NEGATIVE) Urine MDMA Screen Negative (NEGATIVE) U Benzodiazepines Scrn Negative (NEGATIVE) Urine Cocaine Screen Negative (NEGATIVE) U Marijuana (THC) Screen Negative (NEGATIVE) Ethyl Alcohol mg/dL Meds: Medications Discontinued Medications Generic Name Dose Route Start Last Admin Trade Name Freq PRN Reason Stop Dose Admin Furosemide 80 mg 07/20/17 11:15 07/20/17 12:00 Lasix PO 07/20/17 11:16 80 mg ONETIME ONE Administration Sodium Chloride 10 ml 07/20/17 10:05 Saline Flush FLUSH ASDIRECTED PRN Keep Vein Open - Radiology Interpretation Free Text/Narrative:: Chest x-ray: chronic cardiomyopathy, no new acute findings See rad report Departure - Departure Time of Disposition: 11:34 Disposition: Home, Self-Care 01 Condition: Fair Clinical Impression: Shortness of breath, Chronic systolic HF (heart failure) Sinusitis Qualifiers: Sinusitis location: unspecified location Chronicity: acute Recurrence: not specified as recurrent Qualified Code(s): J01.90 - Acute sinusitis, unspecified - Discharge Information Instructions: Shortness of Breath, Adult, [id number], Sinusitis, Adult, Easy- to-Read Forms: ED Department Discharge Additional Instructions: RX: Flonase and Augmentin Continue taking your home medications as prescribed Follow up with your primary care facility - My Orders Last 24 Hours: My Active Orders 07/20/17 10:05 Peripheral IV Insertion Adult [OM.PC] Stat 07/20/17 10:06 EKG Documentation Completion [RC] STAT Peripheral IV Care [RC] . DIRECTED 07/20/17 10:18 DRUG SCREEN URINE BIORAD [URCHEM] Stat UA W/MICROSCOPIC [URIN] Stat - Assessment/Plan Last 24 Hours: My Active Orders 07/20/17 10:05 Peripheral IV Insertion Adult [OM.PC] Stat 07/20/17 10:06 EKG Documentation Completion [RC] STAT Peripheral IV Care [RC] . DIRECTED 07/20/17 10:18 DRUG SCREEN URINE BIORAD [URCHEM] Stat UA W/MICROSCOPIC [URIN] Stat
[2017-07-20 10:43] LABS: CHLORIDE,CL 101 mmol/L (101-111); SODIUM,NA 134 mmol/L (135-145)
[2017-07-20] MEDS ORDERED: Furosemide 80 MG Tab PO ONE (11:15)
--- NOTE | 2017-07-20 11:23 | CR ---
CLINICAL HISTORY: 52-year-old male in the emergency department with chest pain. INTERPRETATION: Abnormal AP chest film. Chronic cardiomegaly with prominent proximal pulmonary artery segments as noted back on PA film 30 Ap and 12 Jul 2017. Pacemaker leads intact. Relative increase venous congestion probably reflects AP magnification technique and no new signs of alveolar edema or dependent pleural fluid accumulation. No new signs of heart failure, lung mass or focal lobar pneumonia. CONCLUSION: Chronic cardiomyopathy. No new lung mass, hilar lymphadenopathy or focal lobar pneumonia.
--- NOTE | 2017-07-22 07:22 | EKG ---
07/20/2017- MANNIE MEREDITH - FINDINGS: A 12-lead EKG shows normal sinus rhythm with no significant ST elevation or ST depression noted on this 12-lead EKG. Nonspecific ST-T wave changes noted on leads V5 and V6. [facility] /[id number]
== END 2017-07-20 12:05 | disposition home or self-care (01) ==
LOC: DL.ED 09:45
DX: I50.22 Chronic systolic (congestive) heart failure (principal); J01.90 Acute sinusitis, unspecified; I50.9 Heart failure, unspecified; F17.210 Nicotine dependence, cigarettes, uncomplicated; Z79.899 Other long term (current) drug therapy
CPT/HCPCS: 36415; 71045; 80053; 80305; 81001; 83880; 84484; 85025; 93005; 99285; A9270; G0480

== ENCOUNTER 2017-07-22 14:01 | Emergency (ER) | payer MEDICAID, OTHER ==
--- NOTE | 2017-07-22 14:16 | EDM.PDOC ---
ED HPI GENERAL MEDICAL PROBLEM - General Stated Complaint: WEAKNESS. IN BY SL AMB Time Seen by Provider: 07/22/17 14:15 Source of Information: Reports: Patient, EMS, EMS Notes Reviewed, RN, RN Notes Reviewed History Limitations: Reports: No Limitations - History of Present Illness INITIAL COMMENTS - FREE TEXT/NARRATIVE: Pt presents to the ER per [facility] with c/o "not feeling good". Patient states he had the home health nurse check his pulse this morning and the rate was about 118. Patient states he has been taking all of his medications as prescribed. He c/o a tightness and pressure in his chest as well as SOB. Patient states his eyelids continue to be swollen. Patient admits to nausea but denies vomiting or diarrhea. Patient denies drug or alcohol use. Onset: Gradual Duration: Chronic Location: Reports: Chest Quality: Reports: Same as Previous Episode - Related Data Allergies Allergy/AdvReac Type Severity Reaction Status Date / Time No Known Allergies Allergy Verified 07/20/17 09:56 Home Meds: Home Meds Carvedilol [Coreg] 6.25 mg PO BIDMEALS 10/18/15 [History] Lisinopril 2.5 mg PO DAILY #30 04/20/17 [Rx] Omeprazole 20 mg PO ACBREAKFAST 30 Days #30 cap.cr 04/20/17 [Rx] Potassium Chloride [Klor-Con 10] 20 meq PO DAILY #30 tab.er 04/20/17 [Rx] Sertraline [Zoloft] 50 mg PO DAILY 30 Days #30 tablet 04/20/17 [Rx] Spironolactone [Aldactone] 25 mg PO DAILY 30 Days #30 tablet 04/20/17 [Rx] Furosemide [Lasix] 40 mg PO BID 30 Days #60 tablet 06/27/17 [Rx] Past Medical History - Past Health History Medical/Surgical History: Denies Medical/Surgical History HEENT History: Reports: None Cardiovascular History: Reports: Blood Clots/VTE/DVT, Cardiomyopathy, Heart Failure, Hypertension, Pacemaker, SOB on Exertion Respiratory History: Reports: SOB Gastrointestinal History: Reports: Gastritis, GERD Genitourinary History: Reports: Other (See Below) Other Genitourinary History: liver issues r/t ETOH Musculoskeletal History: Reports: Arthritis, Other (See Below) Other Musculoskeletal History: torn left and right upper arm tendon. missed surgery 03/2017 Neurological History: Reports: None Psychiatric History: Reports: Addiction, Anxiety, Depression, Panic Attack Other Psychiatric History: Pt states that he has been in treatment for alcoholism many times, last times 10 years ago, and he quit drinking for 8 years Endocrine/Metabolic History: Reports: None Hematologic History: Reports: None Immunologic History: Reports: None Oncologic (Cancer) History: Reports: None Dermatologic History: Reports: None - Infectious Disease History Infectious Disease History: Reports: None - Past Surgical History Head Surgeries/Procedures: Reports: None Cardiovascular Surgical History: Reports: AICD, Percutaneous Transluminal Angioplasty Respiratory Surgical History: Reports: None GI Surgical History: Reports: None Male Surgical History: Reports: None Neurological Surgical History: Reports: None Musculoskeletal Surgical History: Reports: None Social & Family History - Family History Family Medical History: Noncontributory Cardiac: Reports: Hypertension Other Cardiac Family History: Dad and paternal grandmother have hypertension. Respiratory: Reports: Asthma Other Respiratory Family Hisory: Mom and dad have asthma. Endocrine/Metabolic: Reports: Diabetes, Type I Other Endocrine/Metabolic Family History: Dad and paternal grandmother have type I diabetes. - Caffeine Use Caffeine Use: Reports: Coffee, Soda, Tea - Living Situation & Occupation Living situation: Reports: with Family ED ROS GENERAL - Review of Systems Review Of Systems: ROS reveals no pertinent complaints other than HPI. ED EXAM, GENERAL - Physical Exam Exam: See Below Exam Limited By: No Limitations General Appearance: Alert, WD/WN, Mild Distress Eye Exam: Bilateral Eye: EOMI, Normal Inspection Ears: Normal External Exam, Hearing Grossly Normal Nose: Normal Inspection Throat/Mouth: Normal Inspection, Normal Voice, No Airway Compromise, Other ( rhonchi audible during respiration and talking) Head: Atraumatic, Normocephalic, Facial Swelling (mild edema of the upper eye lids) Neck: Normal Inspection, Supple, Non-Tender, Full Range of Motion Respiratory/Chest: Rhonchi (throughout) Cardiovascular: Normal Peripheral Pulses, Regular Rate, Rhythm, No Edema, No Gallop, No JVD, No Murmur, No Rub Peripheral Pulses: 2+: Radial (L), Radial (R) GI/Abdominal: Normal Bowel Sounds, Soft, Non-Tender (Male) Exam: Deferred Rectal (Males) Exam: Deferred Back Exam: Normal Inspection, Full Range of Motion Extremities: Normal Inspection, Normal Range of Motion, Non-Tender, No Pedal Edema, Normal Capillary Refill Neurological: Alert, Oriented, CN II-XII Intact, Normal Cognition, Normal Gait, Normal Reflexes, No Motor/Sensory Deficits Psychiatric: Normal Affect, Normal Mood Skin Exam: Warm, Dry, Intact, Normal Color, No Rash Lymphatic: No Adenopathy EKG INTERPRETATION EKG Date: 07/22/17 Time: 14:37 Rhythm: Other (PVC's) Rate (Beats/Min): 94 Comparison: No Change Course - Vital Signs Last Recorded V/S: Last Vital Signs Temp 97.8 F 07/22/17 14:02 Pulse 97 07/22/17 14:02 Resp 16 07/22/17 14:02 BP 101/79 07/22/17 14:02 Pulse Ox 98 07/22/17 14:02 - Orders/Labs/Meds Orders: Active Orders 24 hr Category Date Time Status EKG Documentation Completion [RC] STAT Care 07/22/17 14:25 Active Peripheral IV Care [RC] . DIRECTED Care 07/22/17 14:26 Active DRUG SCREEN URINE BIORAD [URCHEM] Stat Lab 07/22/17 14:33 Ordered UA W/MICROSCOPIC [URIN] Stat Lab 07/22/17 14:33 Ordered Sodium Chloride 0.9% [Saline Flush] Med 07/22/17 14:25 Active 10 ml FLUSH ASDIRECTED PRN Peripheral IV Insertion Adult [OM.PC] Stat Oth 07/22/17 14:25 Ordered Medication Orders Sodium Chloride (Saline Flush) 10 ml FLUSH ASDIRECTED PRN PRN Reason: Keep Vein Open Last Admin: 07/22/17 14:32 Dose: 10 ml Labs: Laboratory Tests 07/22/17 07/22/17 07/22/17 Range/Units 14:30 14:30 14:33 WBC 6.6 (5.0-10.0) 10^3/uL RBC 4.51 L (4.6-6.2) 10^6/uL Hgb 12.6 L (14.0-18.0) g/dL Hct 39.1 L (40.0-54.0) % MCV 86.7 (80-100) fL MCH 27.9 (27.0-34.0) pg MCHC 32.2 L (33.0-35.0) g/dL Plt Count 265 (150-450) 10^3/uL Neut % (Auto) 71.3 (42.2-75.2) % Lymph % (Auto) 17.3 L (20.5-50.1) % [place] % (Auto) 7.9 (2-8) % Eos % (Auto) 2.4 (1.0-3.0) % Baso % (Auto) 1.1 H (0.0-1.0) % Sodium 138 (135-145) mmol/L Potassium 3.3 L (3.6-5.0) mmol/L Chloride 104 (101-111) mmol/L Carbon Dioxide 26.0 (21.0-31.0) mmol/L Anion Gap 11.3 BUN 7 (7-18) mg/dL Creatinine 0.7 (0.6-1.3) mg/dL Est Cr Clr Drug Dosing 126.25 mL/min Estimated GFR (MDRD) > 60 BUN/Creatinine Ratio 10.00 Glucose 125 H (74-105) mg/dL Calcium 8.4 (8.4-10.2) mg/dl Total Bilirubin 2.0 H (0.2-1.0) mg/dL AST 35 (10-42) IU/L ALT 14 (10-60) IU/L Alkaline Phosphatase 89 (42-121) IU/L Troponin I 0.03 H* (0.00-0.02) ng/ml B-Natriuretic Peptide 3300 H (0-100) pg/ml Total Protein 7.5 (6.7-8.2) g/dl Albumin 2.8 L (3.2-5.5) g/dl Globulin 4.7 Albumin/Globulin Ratio 0.60 Urine Color Dark yellow (YELLOW) Urine Appearance Slightly cloudy (CLEAR) Urine pH 7.5 (5.0-9.0) Ur Specific [place] 1.015 (1.005-1.030) Urine Protein 100 H (NEGATIVE) Urine Glucose (UA) Negative (NEGATIVE) Urine Ketones Negative (NEGATIVE) Urine Occult Blood Negative (NEGATIVE) Urine Nitrite Negative (NEGATIVE) Urine Bilirubin Small H (NEGATIVE) Urine Urobilinogen 2.0 H (0.2-1.0) mg/dL Ur Leukocyte Esterase Negative (NEGATIVE) Urine RBC 0-5 /HPF Urine WBC 0-5 (0-5/HPF) /HPF Ur Epithelial Cells Rare /HPF Amorphous Sediment Moderate (0/HPF) /HPF Urine Bacteria Rare (0-FEW/HPF) /HPF Urine Mucus Few H /LPF Urine Opiates Screen (NEGATIVE) Ur Oxycodone Screen (NEGATIVE) Urine Methadone Screen (NEGATIVE) Ur Barbiturates Screen (NEGATIVE) U Tricyclic Antidepress (NEGATIVE) Ur Phencyclidine Scrn (NEGATIVE) Ur Amphetamine Screen (NEGATIVE) U Methamphetamines Scrn (NEGATIVE) Urine MDMA Screen (NEGATIVE) U Benzodiazepines Scrn (NEGATIVE) Urine Cocaine Screen (NEGATIVE) U Marijuana (THC) Screen (NEGATIVE) Ethyl Alcohol < 5 mg/dL 07/22/17 Range/Units 14:33 WBC (5.0-10.0) 10^3/uL RBC (4.6-6.2) 10^6/uL Hgb (14.0-18.0) g/dL Hct (40.0-54.0) % MCV (80-100) fL MCH (27.0-34.0) pg MCHC (33.0-35.0) g/dL Plt Count (150-450) 10^3/uL Neut % (Auto) (42.2-75.2) % Lymph % (Auto) (20.5-50.1) % [place] % (Auto) (2-8) % Eos % (Auto) (1.0-3.0) % Baso % (Auto) (0.0-1.0) % Sodium (135-145) mmol/L Potassium (3.6-5.0) mmol/L Chloride (101-111) mmol/L Carbon Dioxide (21.0-31.0) mmol/L Anion Gap BUN (7-18) mg/dL Creatinine (0.6-1.3) mg/dL Est Cr Clr Drug Dosing mL/min Estimated GFR (MDRD) BUN/Creatinine Ratio Glucose (74-105) mg/dL Calcium (8.4-10.2) mg/dl Total Bilirubin (0.2-1.0) mg/dL AST (10-42) IU/L ALT (10-60) IU/L Alkaline Phosphatase (42-121) IU/L Troponin I (0.00-0.02) ng/ml B-Natriuretic Peptide (0-100) pg/ml Total Protein (6.7-8.2) g/dl Albumin (3.2-5.5) g/dl Globulin Albumin/Globulin Ratio Urine Color (YELLOW) Urine Appearance (CLEAR) Urine pH (5.0-9.0) Ur Specific [place] (1.005-1.030) Urine Protein (NEGATIVE) Urine Glucose (UA) (NEGATIVE) Urine Ketones (NEGATIVE) Urine Occult Blood (NEGATIVE) Urine Nitrite (NEGATIVE) Urine Bilirubin (NEGATIVE) Urine Urobilinogen (0.2-1.0) mg/dL Ur Leukocyte Esterase (NEGATIVE) Urine RBC /HPF Urine WBC (0-5/HPF) /HPF Ur Epithelial Cells /HPF Amorphous Sediment (0/HPF) /HPF Urine Bacteria (0-FEW/HPF) /HPF Urine Mucus /LPF Urine Opiates Screen Negative (NEGATIVE) Ur Oxycodone Screen Positive H (NEGATIVE) Urine Methadone Screen Negative (NEGATIVE) Ur Barbiturates Screen Negative (NEGATIVE) U Tricyclic Antidepress Negative (NEGATIVE) Ur Phencyclidine Scrn Negative (NEGATIVE) Ur Amphetamine Screen Negative (NEGATIVE) U Methamphetamines Scrn Negative (NEGATIVE) Urine MDMA Screen Negative (NEGATIVE) U Benzodiazepines Scrn Negative (NEGATIVE) Urine Cocaine Screen Negative (NEGATIVE) U Marijuana (THC) Screen Negative (NEGATIVE) Ethyl Alcohol mg/dL Meds: Medications Generic Name Dose Route Start Last Admin Trade Name Freq PRN Reason Stop Dose Admin Sodium Chloride 10 ml 07/22/17 14:25 07/22/17 14:32 Saline Flush FLUSH 10 ml ASDIRECTED PRN Administration Keep Vein Open Discontinued Medications Generic Name Dose Route Start Last Admin Trade Name Freq PRN Reason Stop Dose Admin Furosemide 80 mg 07/22/17 15:04 07/22/17 15:30 Lasix IVPUSH 07/22/17 15:05 80 mg NOW ONE Administration - Radiology Interpretation Free Text/Narrative:: chest xray: No acute new cardiopulmonary abnormality. See rad report Departure - Departure Time of Disposition: 16:05 Disposition: DC/Tfer to Acute Hospital 02 Reason for Transfer *Q: Other Condition: Fair Clinical Impression: CHF, Congestive heart failure Forms: Interfacility Transfer EMTALA - My Orders Last 24 Hours: My Active Orders 07/22/17 14:25 EKG Documentation Completion [RC] STAT Sodium Chloride 0.9% [Saline Flush] 10 ml FLUSH ASDIRECTED PRN Peripheral IV Insertion Adult [OM.PC] Stat 07/22/17 14:26 Peripheral IV Care [RC] . DIRECTED 07/22/17 14:33 DRUG SCREEN URINE BIORAD [URCHEM] Stat UA W/MICROSCOPIC [URIN] Stat - Assessment/Plan Last 24 Hours: My Active Orders 07/22/17 14:25 EKG Documentation Completion [RC] STAT Sodium Chloride 0.9% [Saline Flush] 10 ml FLUSH ASDIRECTED PRN Peripheral IV Insertion Adult [OM.PC] Stat 07/22/17 14:26 Peripheral IV Care [RC] . DIRECTED 07/22/17 14:33 DRUG SCREEN URINE BIORAD [URCHEM] Stat UA W/MICROSCOPIC [URIN] Stat
[2017-07-22] MEDS ORDERED: Sodium Chloride 0.9% 10 ML Syringe FLUSH PRN (14:25)
[2017-07-22 14:53] VITALS: BP 101/79
--- NOTE | 2017-07-22 14:56 | CR ---
Clinical history: 52-year-old male with chest pain and recurrent emergency department visits. Interpretation: Chronic cardiomyopathy and accentuation of perihilar vascular markings. Pacemaker. No new signs of alveolar edema or dependent pleural fluid accumulation. No new lung mass, hilar lymphadenopathy or focal lobar pneumonia. CONCLUSION: No acute new cardiopulmonary abnormality since 20 july and 12 Jul 2017 films.
[2017-07-22 14:58] LABS: CHLORIDE,CL 104 mmol/L (101-111); SODIUM,NA 138 mmol/L (135-145)
[2017-07-22] MEDS ORDERED: Furosemide 40 MG/4 ML VIAL IVPUSH ONE (15:04)
== END 2017-07-22 16:22 ==
LOC: DL.ED 14:01
DX: I11.0 Hypertensive heart disease with heart failure (principal); I50.9 Heart failure, unspecified; F41.9 Anxiety disorder, unspecified; E10.9 Type 1 diabetes mellitus without complications; F32.9 Major depressive disorder, single episode, unspecified; K21.9 Gastro-esophageal reflux disease without esophagitis; Z79.899 Other long term (current) drug therapy; Z95.810 Presence of automatic (implantable) cardiac defibrillator
CPT/HCPCS: 36415; 71045; 80053; 80305; 81001; 83880; 84484; 85025; 93005; 96374; 99285; G0480; J1940; J7050

== ENCOUNTER 2017-07-31 07:43 | Emergency (ER) | payer MEDICAID, OTHER ==
--- NOTE | 2017-07-31 07:57 | EDM.PDOC ---
ED HPI GENERAL MEDICAL PROBLEM - General Chief Complaint: Respiratory Problem Stated Complaint: BY AMBULANCE Time Seen by Provider: 07/31/17 07:56 Source of Information: Reports: Patient, EMS, EMS Notes Reviewed, RN, RN Notes Reviewed History Limitations: Reports: No Limitations - History of Present Illness INITIAL COMMENTS - FREE TEXT/NARRATIVE: Pt presents to the ER per [facility] with c/o shortness of breath and facial swelling. He states he was released from [facility] on Thursday and states he had been feeling well all week. Patient admits to taking his medications as prescribed. He denies any changes. Onset: Gradual Duration: Chronic, Getting Worse Location: Reports: Chest - Related Data Allergies Allergy/AdvReac Type Severity Reaction Status Date / Time No Known Allergies Allergy Verified 07/20/17 09:56 Home Meds: Home Meds Carvedilol [Coreg] 3.125 mg PO BIDMEALS 10/18/15 [History] Lisinopril 2.5 mg PO DAILY #30 04/20/17 [Rx] Potassium Chloride [Klor-Con 10] 20 meq PO DAILY #30 tab.er 04/20/17 [Rx] Sertraline [Zoloft] 50 mg PO DAILY 30 Days #30 tablet 04/20/17 [Rx] Spironolactone [Aldactone] 25 mg PO DAILY 30 Days #30 tablet 04/20/17 [Rx] Furosemide [Lasix] 40 mg PO BID 30 Days #60 tablet 06/27/17 [Rx] ALPRAZolam [Xanax] 0.25 mg PO DAILY 07/31/17 [History] Albuterol Sulfate [Proair Respiclick] 07/31/17 [History] Digoxin 0.25 mg PO DAILY 07/31/17 [History] Fluticasone/Salmeterol [Advair 250-50 Diskus] 07/31/17 [History] Melatonin 3 mg PO BEDTIME 07/31/17 [History] Nicotine [Habitrol] 21 mg TD 07/31/17 [History] Pantoprazole Sodium [Protonix] 40 mg PO DAILY 07/31/17 [History] oxyCODONE HCl/Acetaminophen [Oxycodone-Acetaminophen 5-325] 1 tab PO Q6H PRN [History] Past Medical History - Past Health History Medical/Surgical History: Denies Medical/Surgical History HEENT History: Reports: None Cardiovascular History: Reports: Blood Clots/VTE/DVT, Cardiomyopathy, Heart Failure, Hypertension, Pacemaker, SOB on Exertion Respiratory History: Reports: SOB Gastrointestinal History: Reports: Gastritis, GERD Genitourinary History: Reports: Other (See Below) Other Genitourinary History: liver issues r/t ETOH Musculoskeletal History: Reports: Arthritis, Other (See Below) Other Musculoskeletal History: torn left and right upper arm tendon. missed surgery 03/2017 Neurological History: Reports: None Psychiatric History: Reports: Addiction, Anxiety, Depression, Panic Attack Other Psychiatric History: Pt states that he has been in treatment for alcoholism many times, last times 10 years ago, and he quit drinking for 8 years Endocrine/Metabolic History: Reports: None Hematologic History: Reports: None Immunologic History: Reports: None Oncologic (Cancer) History: Reports: None Dermatologic History: Reports: None - Infectious Disease History Infectious Disease History: Reports: None - Past Surgical History Head Surgeries/Procedures: Reports: None Cardiovascular Surgical History: Reports: AICD, Percutaneous Transluminal Angioplasty Respiratory Surgical History: Reports: None GI Surgical History: Reports: None Male Surgical History: Reports: None Neurological Surgical History: Reports: None Musculoskeletal Surgical History: Reports: None Social & Family History - Family History Family Medical History: Noncontributory Cardiac: Reports: Hypertension Other Cardiac Family History: Dad and paternal grandmother have hypertension. Respiratory: Reports: Asthma Other Respiratory Family Hisory: Mom and dad have asthma. Endocrine/Metabolic: Reports: Diabetes, Type I Other Endocrine/Metabolic Family History: Dad and paternal grandmother have type I diabetes. - Caffeine Use Caffeine Use: Reports: Coffee, Soda, Tea - Living Situation & Occupation Living situation: Reports: with Family ED ROS GENERAL - Review of Systems Review Of Systems: ROS reveals no pertinent complaints other than HPI. ED EXAM, GENERAL - Physical Exam Exam: See Below Exam Limited By: No Limitations General Appearance: Alert, WD/WN, Mild Distress Eye Exam: Bilateral Eye: EOMI, Normal Inspection Ears: Normal External Exam, Hearing Grossly Normal Nose: Normal Inspection Throat/Mouth: Normal Inspection, Normal Voice, No Airway Compromise Head: Atraumatic, Normocephalic Neck: Normal Inspection, Supple, Non-Tender, Full Range of Motion Respiratory/Chest: No Accessory Muscle Use, Chest Non-Tender, Decreased Breath Sounds, Crackles (throughout), Rhonchi (throughout) Cardiovascular: Normal Peripheral Pulses, Regular Rate, Rhythm, No Edema, No Gallop, No JVD, No Rub, Systolic Murmur Peripheral Pulses: 2+: Radial (L), Radial (R) GI/Abdominal: Normal Bowel Sounds, Soft, Non-Tender (Male) Exam: Deferred Rectal (Males) Exam: Deferred Back Exam: Normal Inspection, Full Range of Motion Extremities: Normal Inspection, Normal Range of Motion, Non-Tender, Normal Capillary Refill, No Pedal Edema Neurological: Alert, Oriented, CN II-XII Intact, Normal Cognition, Normal Gait, Normal Reflexes, No Motor/Sensory Deficits Psychiatric: Normal Affect, Normal Mood Skin Exam: Warm, Dry, Intact, Normal Color, No Rash Lymphatic: No Adenopathy EKG INTERPRETATION EKG Date: 07/31/17 Time: 07:57 Rhythm: Other (ventricular paced) Rate (Beats/Min): 107 Comparison: No Change Course - Vital Signs Last Recorded V/S: Last Vital Signs Temp 97.5 F 07/31/17 08:04 Pulse 94 07/31/17 08:04 Resp 16 07/31/17 08:04 BP 108/94 H 07/31/17 08:04 Pulse Ox 98 07/31/17 08:04 - Orders/Labs/Meds Orders: Active Orders 24 hr Category Date Time Status EKG Documentation Completion [RC] STAT Care 07/31/17 08:04 Active Peripheral IV Care [RC] . DIRECTED Care 07/31/17 09:03 Active DRUG SCREEN URINE BIORAD [URCHEM] Stat Lab 07/31/17 08:10 Ordered UA W/MICROSCOPIC [URIN] Stat Lab 07/31/17 08:09 Ordered Sodium Chloride 0.9% [Saline Flush] Med 07/31/17 09:03 Active 10 ml FLUSH ASDIRECTED PRN Peripheral IV Insertion Adult [OM.PC] Stat Oth 07/31/17 09:03 Ordered Medication Orders Sodium Chloride (Saline Flush) 10 ml FLUSH ASDIRECTED PRN PRN Reason: Keep Vein Open Last Admin: 07/31/17 09:15 Dose: 10 ml Labs: Laboratory Tests 07/31/17 07/31/17 07/31/17 Range/Units 08:09 08:10 08:15 WBC 6.7 (5.0-10.0) 10^3/uL RBC 4.21 L (4.6-6.2) 10^6/uL Hgb 11.8 L (14.0-18.0) g/dL Hct 36.7 L (40.0-54.0) % MCV 87.2 (80-100) fL MCH 28.0 (27.0-34.0) pg MCHC 32.2 L (33.0-35.0) g/dL Plt Count 196 (150-450) 10^3/uL Neut % (Auto) 72.8 (42.2-75.2) % Lymph % (Auto) 16.5 L (20.5-50.1) % [place] % (Auto) 6.1 (2-8) % Eos % (Auto) 3.7 H (1.0-3.0) % Baso % (Auto) 0.9 (0.0-1.0) % Sodium (135-145) mmol/L Potassium (3.6-5.0) mmol/L Chloride (101-111) mmol/L Carbon Dioxide (21.0-31.0) mmol/L Anion Gap BUN (7-18) mg/dL Creatinine (0.6-1.3) mg/dL Est Cr Clr Drug Dosing mL/min Estimated GFR (MDRD) BUN/Creatinine Ratio Glucose (74-105) mg/dL Calcium (8.4-10.2) mg/dl Total Bilirubin (0.2-1.0) mg/dL AST (10-42) IU/L ALT (10-60) IU/L Alkaline Phosphatase (42-121) IU/L Troponin I (0.00-0.02) ng/ml B-Natriuretic Peptide (0-100) pg/ml Total Protein (6.7-8.2) g/dl Albumin (3.2-5.5) g/dl Globulin Albumin/Globulin Ratio Urine Color Yellow (YELLOW) Urine Appearance Slightly cloudy (CLEAR) Urine pH 6.0 (5.0-9.0) Ur Specific [place] 1.020 (1.005-1.030) Urine Protein 100 H (NEGATIVE) Urine Glucose (UA) Negative (NEGATIVE) Urine Ketones Negative (NEGATIVE) Urine Occult Blood Negative (NEGATIVE) Urine Nitrite Negative (NEGATIVE) Urine Bilirubin Small H (NEGATIVE) Urine Urobilinogen 1.0 (0.2-1.0) mg/dL Ur Leukocyte Esterase Negative (NEGATIVE) Urine RBC 0-5 /HPF Urine WBC 0-5 (0-5/HPF) /HPF Ur Epithelial Cells Rare /HPF Amorphous Sediment Rare (0/HPF) /HPF Urine Bacteria Rare (0-FEW/HPF) /HPF Urine Mucus Rare /LPF Urine Other Urine Opiates Screen Positive H (NEGATIVE) Ur Oxycodone Screen Positive H (NEGATIVE) Urine Methadone Screen Negative (NEGATIVE) Ur Barbiturates Screen Negative (NEGATIVE) U Tricyclic Antidepress Negative (NEGATIVE) Ur Phencyclidine Scrn Negative (NEGATIVE) Ur Amphetamine Screen Negative (NEGATIVE) U Methamphetamines Scrn Negative (NEGATIVE) Urine MDMA Screen Negative (NEGATIVE) U Benzodiazepines Scrn Positive H (NEGATIVE) Urine Cocaine Screen Negative (NEGATIVE) U Marijuana (THC) Screen Negative (NEGATIVE) Ethyl Alcohol mg/dL 07/31/17 Range/Units 08:15 WBC (5.0-10.0) 10^3/uL RBC (4.6-6.2) 10^6/uL Hgb (14.0-18.0) g/dL Hct (40.0-54.0) % MCV (80-100) fL MCH (27.0-34.0) pg MCHC (33.0-35.0) g/dL Plt Count (150-450) 10^3/uL Neut % (Auto) (42.2-75.2) % Lymph % (Auto) (20.5-50.1) % [place] % (Auto) (2-8) % Eos % (Auto) (1.0-3.0) % Baso % (Auto) (0.0-1.0) % Sodium 139 (135-145) mmol/L Potassium 3.7 (3.6-5.0) mmol/L Chloride 110 (101-111) mmol/L Carbon Dioxide 25.0 (21.0-31.0) mmol/L Anion Gap 7.7 BUN 15 (7-18) mg/dL Creatinine 0.7 (0.6-1.3) mg/dL Est Cr Clr Drug Dosing 126.25 mL/min Estimated GFR (MDRD) > 60 BUN/Creatinine Ratio 21.42 Glucose 115 H (74-105) mg/dL Calcium 8.9 (8.4-10.2) mg/dl Total Bilirubin 1.2 H (0.2-1.0) mg/dL AST 30 (10-42) IU/L ALT 14 (10-60) IU/L Alkaline Phosphatase 145 H (42-121) IU/L Troponin I 0.04 H* (0.00-0.02) ng/ml B-Natriuretic Peptide 3930 H (0-100) pg/ml Total Protein 7.5 (6.7-8.2) g/dl Albumin 3.1 L (3.2-5.5) g/dl Globulin 4.4 Albumin/Globulin Ratio 0.70 Urine Color (YELLOW) Urine Appearance (CLEAR) Urine pH (5.0-9.0) Ur Specific [place] (1.005-1.030) Urine Protein (NEGATIVE) Urine Glucose (UA) (NEGATIVE) Urine Ketones (NEGATIVE) Urine Occult Blood (NEGATIVE) Urine Nitrite (NEGATIVE) Urine Bilirubin (NEGATIVE) Urine Urobilinogen (0.2-1.0) mg/dL Ur Leukocyte Esterase (NEGATIVE) Urine RBC /HPF Urine WBC (0-5/HPF) /HPF Ur Epithelial Cells /HPF Amorphous Sediment (0/HPF) /HPF Urine Bacteria (0-FEW/HPF) /HPF Urine Mucus /LPF Urine Other Urine Opiates Screen (NEGATIVE) Ur Oxycodone Screen (NEGATIVE) Urine Methadone Screen (NEGATIVE) Ur Barbiturates Screen (NEGATIVE) U Tricyclic Antidepress (NEGATIVE) Ur Phencyclidine Scrn (NEGATIVE) Ur Amphetamine Screen (NEGATIVE) U Methamphetamines Scrn (NEGATIVE) Urine MDMA Screen (NEGATIVE) U Benzodiazepines Scrn (NEGATIVE) Urine Cocaine Screen (NEGATIVE) U Marijuana (THC) Screen (NEGATIVE) Ethyl Alcohol < 5 mg/dL Meds: Medications Generic Name Dose Route Start Last Admin Trade Name Freq PRN Reason Stop Dose Admin Sodium Chloride 10 ml 07/31/17 09:03 07/31/17 09:15 Saline Flush FLUSH 10 ml ASDIRECTED PRN Administration Keep Vein Open Discontinued Medications Generic Name Dose Route Start Last Admin Trade Name Freq PRN Reason Stop Dose Admin Furosemide 80 mg 07/31/17 09:03 07/31/17 09:13 Lasix IVPUSH 07/31/17 09:04 80 mg NOW ONE Administration Lorazepam 1 mg 07/31/17 09:08 07/31/17 09:22 Ativan PO 07/31/17 09:09 1 mg ONETIME ONE Administration - Radiology Interpretation Free Text/Narrative:: Chest xray: Abnormal but unchanged from recent chest xrays See rad report Departure - Departure Time of Disposition: 09:52 Disposition: Home, Self-Care 01 Condition: Fair Clinical Impression: Chronic systolic HF (heart failure), Anxiety - Discharge Information Instructions: Shortness of Breath, Adult, [id number], Heart Failure, Easy-to- Read Forms: ED Department Discharge Additional Instructions: Continue to take your medications as prescribed Follow up with your primary care facility - My Orders Last 24 Hours: My Active Orders 07/31/17 08:04 EKG Documentation Completion [RC] STAT 07/31/17 08:09 UA W/MICROSCOPIC [URIN] Stat 07/31/17 08:10 DRUG SCREEN URINE BIORAD [URCHEM] Stat 07/31/17 09:03 Peripheral IV Care [RC] . DIRECTED Sodium Chloride 0.9% [Saline Flush] 10 ml FLUSH ASDIRECTED PRN Peripheral IV Insertion Adult [OM.PC] Stat - Assessment/Plan Last 24 Hours: My Active Orders 07/31/17 08:04 EKG Documentation Completion [RC] STAT 07/31/17 08:09 UA W/MICROSCOPIC [URIN] Stat 07/31/17 08:10 DRUG SCREEN URINE BIORAD [URCHEM] Stat 07/31/17 09:03 Peripheral IV Care [RC] . DIRECTED Sodium Chloride 0.9% [Saline Flush] 10 ml FLUSH ASDIRECTED PRN Peripheral IV Insertion Adult [OM.PC] Stat
[2017-07-31 08:41] LABS: CHLORIDE,CL 110 mmol/L (101-111); SODIUM,NA 139 mmol/L (135-145)
[2017-07-31] MEDS ORDERED: Sodium Chloride 0.9% 10 ML Syringe FLUSH PRN (09:03)
[2017-07-31] MEDS ORDERED: Furosemide 40 MG/4 ML VIAL IVPUSH ONE (09:03)
--- NOTE | 2017-07-31 09:05 | CR ---
Clinical history: 52-year-old male emergency department with chest pain. Interpretation: Abnormal. Large cardiac silhouette (cardiomyopathy and/or pericardial effusion). External rn cardiac cath leads . Cardiac pacemaker. Abnormally prominent "show" of the proximal pulmonary artery segments and generalized venous congesti on is chronic and relatively unchanged since previous exams of and 22 Jul 2017. No new signs of alveolar edema or dependent pleural fluid accumulation i.e. no pleural effusions. No new lung mass or focal lobar pneumonia. No atelectasis/collapse. No pneumothorax. CONCLUSION: Abnormal but generally unchanged appearance from recent chest radiographs.
[2017-07-31] MEDS ORDERED: LORazepam 1 MG Tab PO ONE (09:08)
[2017-07-31 09:54] VITALS: BP 106/89
--- NOTE | 2017-08-01 11:32 | EKG ---
07/31/2017 - MANNIE MEREDITH - TIME: 7:57 am. FINDINGS: The EKG shows an atrial sensed ventricular paced rhythm. The heart rate is 107 beats per minute. [facility] /[id number]
== END 2017-07-31 09:58 | disposition home or self-care (01) ==
LOC: DL.ED 07:43
DX: I11.0 Hypertensive heart disease with heart failure (principal); I50.22 Chronic systolic (congestive) heart failure; F41.9 Anxiety disorder, unspecified; K21.9 Gastro-esophageal reflux disease without esophagitis; Z79.899 Other long term (current) drug therapy
CPT/HCPCS: 36415; 71045; 80053; 80305; 81001; 83880; 84484; 85025; 93005; 96374; 99285; A9270; G0480; J1940; J7050

== ENCOUNTER 2017-08-13 11:56 | Emergency (ER) | payer MEDICAID, OTHER ==
--- NOTE | 2017-08-13 12:19 | EDM.PDOC ---
<Garima Neumann - Last Filed: 08/13/17 12:59> ED HPI GENERAL MEDICAL PROBLEM - General Chief Complaint: Respiratory Problem Stated Complaint: IN BY AMBULANCE Time Seen by Provider: 08/13/17 12:36 Source of Information: Reports: Patient, EMS, EMS Notes Reviewed, RN History Limitations: Reports: No Limitations - History of Present Illness INITIAL COMMENTS - FREE TEXT/NARRATIVE: 52 yo male with history of Meth use and hypertension, presents with increasing severity of SOB and cough. SOB has become worse for the past three days. Last night patient felt feverish, diaphoretic, with increased swelling in feet and ankles. He has occasional chest pain localized to center of the chest, described as a sharp pain. Cough is productive of green sputum. Denies sick contacts at home. No nausea, vomiting, or recent IV drug use. Current smoker of 4-5 cigarettes a day. Denies alcohol use, states gave up alcohol 4 months ago. Onset: Sudden Onset Date: 08/12/17 Onset Time: 07:00 Duration: Hour(s): Location: Reports: Chest Quality: Reports: Sharp Severity: Moderate Improves with: Reports: Rest - Related Data Allergies Allergy/AdvReac Type Severity Reaction Status Date / Time No Known Allergies Allergy Verified 08/13/17 13:22 Home Meds: Home Meds Carvedilol [Coreg] 3.125 mg PO BIDMEALS 10/18/15 [History] Lisinopril 2.5 mg PO DAILY #30 04/20/17 [Rx] Potassium Chloride [Klor-Con 10] 20 meq PO DAILY #30 tab.er 04/20/17 [Rx] Sertraline [Zoloft] 50 mg PO DAILY 30 Days #30 tablet 04/20/17 [Rx] Spironolactone [Aldactone] 25 mg PO DAILY 30 Days #30 tablet 04/20/17 [Rx] Furosemide [Lasix] 40 mg PO BID 30 Days #60 tablet 06/27/17 [Rx] ALPRAZolam [Xanax] 0.25 mg PO DAILY 07/31/17 [History] Digoxin 0.25 mg PO DAILY 07/31/17 [History] Fluticasone/Salmeterol [Advair 250-50 Diskus] 1 puff INH DAILY 07/31/17 [History ] Melatonin 3 mg PO BEDTIME 07/31/17 [History] Pantoprazole Sodium [Protonix] 40 mg PO DAILY 07/31/17 [History] oxyCODONE HCl/Acetaminophen [Oxycodone-Acetaminophen 5-325] 1 tab PO Q6H PRN [History] Past Medical History - Past Health History Medical/Surgical History: Denies Medical/Surgical History HEENT History: Reports: None Cardiovascular History: Reports: Blood Clots/VTE/DVT, Cardiomyopathy, Heart Failure, Hypertension, Pacemaker, SOB on Exertion Respiratory History: Reports: SOB Gastrointestinal History: Reports: Gastritis, GERD Genitourinary History: Reports: Other (See Below) Other Genitourinary History: liver issues r/t ETOH Musculoskeletal History: Reports: Arthritis, Other (See Below) Other Musculoskeletal History: torn left and right upper arm tendon. missed surgery 03/2017 Neurological History: Reports: None Psychiatric History: Reports: Addiction, Anxiety, Depression, Panic Attack Other Psychiatric History: Pt states that he has been in treatment for alcoholism many times, last times 10 years ago, and he quit drinking for 8 years Endocrine/Metabolic History: Reports: None Hematologic History: Reports: None Immunologic History: Reports: None Oncologic (Cancer) History: Reports: None Dermatologic History: Reports: None - Infectious Disease History Infectious Disease History: Reports: None - Past Surgical History Head Surgeries/Procedures: Reports: None Cardiovascular Surgical History: Reports: AICD, Percutaneous Transluminal Angioplasty Respiratory Surgical History: Reports: None GI Surgical History: Reports: None Male Surgical History: Reports: None Neurological Surgical History: Reports: None Musculoskeletal Surgical History: Reports: None Social & Family History - Family History Family Medical History: Noncontributory Cardiac: Reports: Hypertension Other Cardiac Family History: Dad and paternal grandmother have hypertension. Respiratory: Reports: Asthma Other Respiratory Family Hisory: Mom and dad have asthma. Endocrine/Metabolic: Reports: Diabetes, Type I Other Endocrine/Metabolic Family History: Dad and paternal grandmother have type I diabetes. - Tobacco Use Smoking Status *Q: Current Every Day Smoker - Caffeine Use Caffeine Use: Reports: Coffee, Soda, Tea - Living Situation & Occupation Living situation: Reports: with Family ED ROS GENERAL - Review of Systems Constitutional: Reports: Chills, Weakness HEENT: Denies: No Symptoms, Eye Pain, Throat Pain Respiratory: Reports: Shortness of Breath, Wheezing, Cough, Sputum Cardiovascular: Reports: Chest Pain GI/Abdominal: Denies: Abdominal Pain Musculoskeletal: Reports: Shoulder Pain Neurological: Denies: Confusion, Headache, Trouble Speaking ED EXAM, GENERAL - Physical Exam Exam: See Below Exam Limited By: No Limitations General Appearance: Alert, WD/WN, No Apparent Distress Eye Exam: Bilateral Eye: EOMI Nose: Normal Inspection Throat/Mouth: Normal Inspection, Normal Lips, Normal Teeth, Normal Gums, Normal Oropharynx, Normal Voice, No Airway Compromise Head: Atraumatic, Normocephalic Neck: Normal Inspection Respiratory/Chest: Rhonchi, Wheezing, Accessory Muscle Use Cardiovascular: Normal Peripheral Pulses, No Edema, Systolic Murmur ( holosystolic ) Peripheral Pulses: 2+: Radial (L), Radial (R), Dorsalis Pedis (L), Dorsalis Pedis (R) Back Exam: Normal Inspection Skin Exam: Warm, Dry EKG INTERPRETATION EKG Date: 08/13/17 Time: 12:28 Rhythm: Other (Ventricular paced) Rate (Beats/Min): 99 P-Wave: Absent Comparison: No Change (07/31/17 - Ventricular paced rhythm) Course - Vital Signs Last Recorded V/S: Last Vital Signs Temp 36.2 C 08/13/17 12:10 Pulse 94 08/13/17 12:33 Resp 32 H 08/13/17 12:10 BP 158/70 H 08/13/17 12:10 Pulse Ox 100 08/13/17 12:10 - Orders/Labs/Meds Orders: Active Orders 24 hr Category Date Time Status EKG Documentation Completion [RC] STAT Care 08/13/17 12:03 Active Peripheral IV Care [RC] . DIRECTED Care 08/13/17 12:34 Active RT Aerosol Therapy [RC] ASDIRECTED Care 08/13/17 12:33 Active CULTURE BLOOD [BC] Stat Lab 08/13/17 12:30 Received CULTURE BLOOD [BC] Stat Lab 08/13/17 12:46 Received TROPONIN I [CHEM] Stat Lab 08/13/17 12:30 Received Sodium Chloride 0.9% [Saline Flush] Med 08/13/17 12:34 Active 10 ml FLUSH ASDIRECTED PRN Blood Culture x2 Reflex Set [OM.PC] Stat Oth 08/13/17 12:24 Ordered Peripheral IV Insertion Adult [OM.PC] Routine Oth 08/13/17 12:34 Ordered Medication Orders Sodium Chloride (Saline Flush) 10 ml FLUSH ASDIRECTED PRN PRN Reason: Keep Vein Open Last Admin: 08/13/17 12:52 Dose: 10 ml Labs: Laboratory Tests 08/13/17 08/13/17 08/13/17 Range/Units 12:09 12:30 12:30 WBC 6.3 (5.0-10.0) 10^3/uL RBC 4.84 (4.6-6.2) 10^6/uL Hgb 13.8 L D (14.0-18.0) g/dL Hct 42.1 (40.0-54.0) % MCV 87.0 (80-100) fL MCH 28.5 (27.0-34.0) pg MCHC 32.8 L (33.0-35.0) g/dL Plt Count 311 D (150-450) 10^3/uL Neut % (Auto) 64.5 (42.2-75.2) % Lymph % (Auto) 21.6 (20.5-50.1) % Lawrence % (Auto) 7.6 (2-8) % Eos % (Auto) 5.2 H (1.0-3.0) % Baso % (Auto) 1.1 H (0.0-1.0) % Sodium 139 (135-145) mmol/L Potassium 3.5 L (3.6-5.0) mmol/L Chloride 105 (101-111) mmol/L Carbon Dioxide 28.0 (21.0-31.0) mmol/L Anion Gap 9.5 BUN 7 (7-18) mg/dL Creatinine 0.6 (0.6-1.3) mg/dL Est Cr Clr Drug Dosing TNP Estimated GFR (MDRD) > 60 BUN/Creatinine Ratio 11.66 Glucose 82 (74-105) mg/dL Lactic Acid (0.5-2.2) mmol/L Calcium 9.0 (8.4-10.2) mg/dl Total Bilirubin 1.6 H (0.2-1.0) mg/dL AST 25 (10-42) IU/L ALT 12 (10-60) IU/L Alkaline Phosphatase 121 (42-121) IU/L B-Natriuretic Peptide 2250 H (0-100) pg/ml Total Protein 8.7 H (6.7-8.2) g/dl Albumin 3.6 (3.2-5.5) g/dl Globulin 5.1 Albumin/Globulin Ratio 0.71 Urine Opiates Screen Negative (NEGATIVE) Ur Oxycodone Screen Negative (NEGATIVE) Urine Methadone Screen Negative (NEGATIVE) Ur Barbiturates Screen Negative (NEGATIVE) U Tricyclic Antidepress Negative (NEGATIVE) Ur Phencyclidine Scrn Negative (NEGATIVE) Ur Amphetamine Screen Negative (NEGATIVE) U Methamphetamines Scrn Negative (NEGATIVE) Urine MDMA Screen Negative (NEGATIVE) U Benzodiazepines Scrn Positive H (NEGATIVE) Urine Cocaine Screen Negative (NEGATIVE) U Marijuana (THC) Screen Negative (NEGATIVE) 08/13/17 Range/Units 12:30 WBC (5.0-10.0) 10^3/uL RBC (4.6-6.2) 10^6/uL Hgb (14.0-18.0) g/dL Hct (40.0-54.0) % MCV (80-100) fL MCH (27.0-34.0) pg MCHC (33.0-35.0) g/dL Plt Count (150-450) 10^3/uL Neut % (Auto) (42.2-75.2) % Lymph % (Auto) (20.5-50.1) % Lawrence % (Auto) (2-8) % Eos % (Auto) (1.0-3.0) % Baso % (Auto) (0.0-1.0) % Sodium (135-145) mmol/L Potassium (3.6-5.0) mmol/L Chloride (101-111) mmol/L Carbon Dioxide (21.0-31.0) mmol/L Anion Gap BUN (7-18) mg/dL Creatinine (0.6-1.3) mg/dL Est Cr Clr Drug Dosing Estimated GFR (MDRD) BUN/Creatinine Ratio Glucose (74-105) mg/dL Lactic Acid 1.7 (0.5-2.2) mmol/L Calcium (8.4-10.2) mg/dl Total Bilirubin (0.2-1.0) mg/dL AST (10-42) IU/L ALT (10-60) IU/L Alkaline Phosphatase (42-121) IU/L B-Natriuretic Peptide (0-100) pg/ml Total Protein (6.7-8.2) g/dl Albumin (3.2-5.5) g/dl Globulin Albumin/Globulin Ratio Urine Opiates Screen (NEGATIVE) Ur Oxycodone Screen (NEGATIVE) Urine Methadone Screen (NEGATIVE) Ur Barbiturates Screen (NEGATIVE) U Tricyclic Antidepress (NEGATIVE) Ur Phencyclidine Scrn (NEGATIVE) Ur Amphetamine Screen (NEGATIVE) U Methamphetamines Scrn (NEGATIVE) Urine MDMA Screen (NEGATIVE) U Benzodiazepines Scrn (NEGATIVE) Urine Cocaine Screen (NEGATIVE) U Marijuana (THC) Screen (NEGATIVE) Meds: Medications Generic Name Dose Route Start Last Admin Trade Name Freq PRN Reason Stop Dose Admin Sodium Chloride 10 ml 08/13/17 12:34 08/13/17 12:52 Saline Flush FLUSH 10 ml ASDIRECTED PRN Administration Keep Vein Open Discontinued Medications Generic Name Dose Route Start Last Admin Trade Name Freq PRN Reason Stop Dose Admin Albuterol/Ipratropium 3 ml 08/13/17 12:32 08/13/17 12:44 Duoneb 3.0-0.5 Mg/3 Ml NEB 08/13/17 12:33 3 ml ONETIME ONE Administration Levofloxacin 500 mg 08/13/17 13:41 08/13/17 13:51 Levaquin PO 08/13/17 13:42 500 mg ONETIME ONE Administration Lorazepam 2 mg 08/13/17 12:32 08/13/17 12:51 Ativan IVPUSH 08/13/17 12:33 2 mg ONETIME ONE Administration Methylprednisolone Sodium Succinate 125 mg 08/13/17 13:41 08/13/17 13:51 Solu-Medrol IVPUSH 08/13/17 13:42 125 mg ONETIME ONE Administration - Radiology Interpretation Free Text/Narrative:: Portable chest X ray shows no changes from 07/31/17. Enlarged heart size See radiologist report Departure - Departure Disposition: Home, Self-Care 01 Clinical Impression: Acute exacerbation of chronic obstructive pulmonary disease (COPD), Chronic systolic HF (heart failure) - Discharge Information Instructions: Steps to Quit Smoking, [id number], Chronic Obstructive Pulmonary Disease, [id number] Forms: ED Department Discharge Additional Instructions: Rx: Levaquin 500mg Rx: Prednisone 20mg Use your inhalers/breathing treatments as prescribed. Try to quit smoking. Follow up in clinic in 4 to 5 days for recheck. - My Orders Last 24 Hours: My Active Orders 08/13/17 12:30 TROPONIN I [CHEM] Stat - Assessment/Plan Last 24 Hours: My Active Orders 08/13/17 12:30 TROPONIN I [CHEM] Stat <Bernard Olson - Last Filed: 08/13/17 13:59> ED ROS GENERAL - Review of Systems Review Of Systems: See Below Course - Re-Assessments/Exams Free Text/Narrative Re-Assessment/Exam: 08/13/17 13:45 Pt seen in conjunction with Yohana BLISS with all care of pt during this ER encounter performed under my direct supervision. Departure - Departure Time of Disposition: 13:45 Condition: Fair
[2017-08-13] MEDS ORDERED: Albuterol/Ipratropium 3.0-0.5 MG/3 ML Neb Soln NEB ONE (12:32)
[2017-08-13] MEDS ORDERED: LORazepam 2 MG/ML Syringe IVPUSH ONE (12:32)
[2017-08-13] MEDS ORDERED: Sodium Chloride 0.9% 10 ML Syringe FLUSH PRN (12:34)
[2017-08-13 13:02] LABS: ANION GAP 9.5; CHLORIDE,CL 105 mmol/L (101-111); SODIUM,NA 139 mmol/L (135-145)
--- NOTE | 2017-08-13 13:13 | CR ---
Clinical history: 52-year-old male with coronary vascular disease and cardiac pacemaker who was recen tly evaluated emergency department on 31 Jul 2017. Interpretation: Abnormal. Abnormally enlarged cardiac silhouette (cardiomyopathy and/or pericardial effusion) unchanged when co mpared directly to previous exams of , and July,, at this institution. Chronic prominence of proximal pulmonary artery segments and venous congestion but...* no new signs o f alveolar edema or dependent pleural fluid accumulation. Cardiac pacemaker leads appear intact and unchanged. External s3b multi sensor operator leads. No new lung mass, hilar lymphadenopathy or focal lobar pneumonia. No pneumothorax. Effusion and/or
[2017-08-13 13:22] VITALS: BP 158/70
[2017-08-13] MEDS ORDERED: Levofloxacin 500 MG Tab PO ONE (13:41)
[2017-08-13] MEDS ORDERED: methylPREDNISolone Sodium Succinate 125 MG/2 ML SDV IVPUSH ONE (13:41)
--- NOTE | 2017-08-17 14:39 | EKG ---
08/13/2017 - BERTRAND MEREDITH- TIME: 12:19 p.m. FINDINGS: As per my reading, atrial ventricular paced complex. [facility] /[id number]
== END 2017-08-13 14:02 | disposition home or self-care (01) ==
LOC: DL.ED 11:56
DX: J44.1 Chronic obstructive pulmonary disease with (acute) exacerbation (principal); I11.0 Hypertensive heart disease with heart failure; I50.22 Chronic systolic (congestive) heart failure; K21.9 Gastro-esophageal reflux disease without esophagitis; F17.200 Nicotine dependence, unspecified, uncomplicated; Z79.899 Other long term (current) drug therapy
CPT/HCPCS: 36415; 71045; 80053; 80305; 83605; 83880; 84484; 85025; 87040; 93005; 94640; 96374; 96375; 99285; A9270; J2060; J2930; J7050

== ENCOUNTER 2017-08-16 08:59 | Emergency (ER) | payer MEDICAID, OTHER ==
[2017-08-16] MEDS ORDERED: Sodium Chloride 0.9% 10 ML Syringe FLUSH PRN (09:12)
[2017-08-16] MEDS ORDERED: Albuterol/Ipratropium 3.0-0.5 MG/3 ML Neb Soln NEB ONE (09:14)
[2017-08-16 09:39] VITALS: BP 96/80
[2017-08-16] MEDS ORDERED: Albuterol/Ipratropium 3.0-0.5 MG/3 ML Neb Soln ONE (09:43)
[2017-08-16 09:59] LABS: CHLORIDE,CL 105 mmol/L (101-111); SODIUM,NA 140 mmol/L (135-145)
[2017-08-16] MEDS ORDERED: Iopamidol 612 MG/ML 75 ML Bottle IVPUSH ONE (10:54)
[2017-08-16] MEDS ORDERED: LORazepam 2 MG/ML Syringe IVPUSH ONE (10:54)
[2017-08-16] MEDS ORDERED: Furosemide 40 MG Tab PO ONE (10:55)
[2017-08-16] MEDS ORDERED: Levofloxacin/Dextrose 5%-Water 750 MG in Premix Bag 1 BAG IV ONE (11:54)
--- NOTE | 2017-08-16 13:16 | EDM.PDOC ---
Scribed by Diann Nayak 08/16/17 [id number] for Bernard Olson MD ED HPI GENERAL MEDICAL PROBLEM - General Chief Complaint: Respiratory Problem Stated Complaint: BY AMBULANCE Time Seen by Provider: 08/16/17 09:10 Source of Information: Reports: Patient, EMS, EMS Notes Reviewed, RN, RN Notes Reviewed - History of Present Illness INITIAL COMMENTS - FREE TEXT/NARRATIVE: Patient presented to ER by [facility] with complaint of progressively worsening shortness of breath, cough and wheezing. He states that became anxious and felt feverish during the night, but did not measure his temperature. Denies chest pain. 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 Patient states that he has been compliant with his medications. Onset: Today Duration: Getting Worse Location: Reports: Chest Quality: Reports: Ache Severity: Severe Improves with: Reports: None Worsens with: Reports: None Associated Symptoms: Reports: No Other Symptoms Thoracic Pain Score (Numeric/FACES): 7 - Related Data Allergies Allergy/AdvReac Type Severity Reaction Status Date / Time No Known Allergies Allergy Verified 08/16/17 10:20 Home Meds: Home Meds Carvedilol [Coreg] 3.125 mg PO BIDMEALS 10/18/15 [History] Lisinopril 2.5 mg PO DAILY #30 04/20/17 [Rx] Potassium Chloride [Klor-Con 10] 20 meq PO DAILY #30 tab.er 04/20/17 [Rx] Sertraline [Zoloft] 50 mg PO DAILY 30 Days #30 tablet 04/20/17 [Rx] Spironolactone [Aldactone] 25 mg PO DAILY 30 Days #30 tablet 04/20/17 [Rx] Furosemide [Lasix] 40 mg PO BID 30 Days #60 tablet 06/27/17 [Rx] ALPRAZolam [Xanax] 0.25 mg PO DAILY 07/31/17 [History] Digoxin 0.25 mg PO DAILY 07/31/17 [History] Fluticasone/Salmeterol [Advair 250-50 Diskus] 1 puff INH DAILY 07/31/17 [History ] Melatonin 3 mg PO BEDTIME 07/31/17 [History] Pantoprazole Sodium [Protonix] 40 mg PO DAILY 07/31/17 [History] oxyCODONE HCl/Acetaminophen [Oxycodone-Acetaminophen 5-325] 1 tab PO Q6H PRN [History] Past Medical History - Past Health History Medical/Surgical History: Denies Medical/Surgical History HEENT History: Reports: None Cardiovascular History: Reports: Blood Clots/VTE/DVT, Cardiomyopathy, Heart Failure, Hypertension, Pacemaker, SOB on Exertion Respiratory History: Reports: SOB Gastrointestinal History: Reports: Gastritis, GERD Genitourinary History: Reports: Other (See Below) Other Genitourinary History: liver issues r/t ETOH Musculoskeletal History: Reports: Arthritis, Other (See Below) Other Musculoskeletal History: torn left and right upper arm tendon. missed surgery 03/2017 Neurological History: Reports: None Psychiatric History: Reports: Addiction, Anxiety, Depression, Panic Attack Other Psychiatric History: Pt states that he has been in treatment for alcoholism many times, last times 10 years ago, and he quit drinking for 8 years Endocrine/Metabolic History: Reports: None Hematologic History: Reports: None Immunologic History: Reports: None Oncologic (Cancer) History: Reports: None Dermatologic History: Reports: None - Infectious Disease History Infectious Disease History: Reports: None - Past Surgical History Head Surgeries/Procedures: Reports: None Cardiovascular Surgical History: Reports: AICD, Percutaneous Transluminal Angioplasty Respiratory Surgical History: Reports: None GI Surgical History: Reports: None Male Surgical History: Reports: None Neurological Surgical History: Reports: None Musculoskeletal Surgical History: Reports: None Social & Family History - Family History Family Medical History: Noncontributory Cardiac: Reports: Hypertension Other Cardiac Family History: Dad and paternal grandmother have hypertension. Respiratory: Reports: Asthma Other Respiratory Family Hisory: Mom and dad have asthma. Endocrine/Metabolic: Reports: Diabetes, Type I Other Endocrine/Metabolic Family History: Dad and paternal grandmother have type I diabetes. - Caffeine Use Caffeine Use: Reports: Coffee - Living Situation & Occupation Living situation: Reports: with Family ED ROS GENERAL - Review of Systems Review Of Systems: ROS reveals no pertinent complaints other than HPI. ED EXAM, GENERAL - Physical Exam Exam: See Below Exam Limited By: No Limitations General Appearance: Alert, WD/WN, No Apparent Distress Eye Exam: Bilateral Eye: Normal Inspection Ears: Hearing Grossly Normal Nose: Normal Inspection, Normal Mucosa, No Blood Throat/Mouth: Normal Lips, Normal Oropharynx, Normal Voice, No Airway Compromise. No: Normal Teeth Head: Atraumatic, Normocephalic Neck: Normal Inspection, Supple, Non-Tender, Full Range of Motion. No: Lymphadenopathy (L), Lymphadenopathy (R) Respiratory/Chest: No Respiratory Distress, No Accessory Muscle Use, Decreased Breath Sounds, Rhonchi (left base), Wheezing Cardiovascular: Regular Rate, Rhythm, No Edema GI/Abdominal: Normal Bowel Sounds, Soft, Non-Tender, No Abnormal Bruit. No: Guarding, Rigid, Rebound (Male) Exam: Deferred Rectal (Males) Exam: Deferred Back Exam: Normal Inspection. No: CVA Tenderness (L), CVA Tenderness (R) Extremities: Normal Inspection, Non-Tender, No Pedal Edema, Normal Capillary Refill. No: David's Sign Neurological: Alert, Oriented, CN II-XII Intact, Normal Gait, No Motor/Sensory Deficits Psychiatric: Normal Affect, Normal Mood Skin Exam: Warm, Dry, Intact, Normal Color, No Rash EKG INTERPRETATION EKG Date: 08/16/17 Time: 09:28 Rhythm: Other (sinus rhythm) Rate (Beats/Min): 87 [place]: Normal P-Wave: Present QRS: Other (nonspecific intraventricularconduction delay. Old lateral Q waves.) ST-T: Normal QT: Normal Comparison: No Change Course - Vital Signs Last Recorded V/S: Last Vital Signs Temp 37.2 C 08/16/17 09:38 Pulse 76 08/16/17 10:06 Resp 20 08/16/17 09:38 BP 96/80 08/16/17 09:38 Pulse Ox 100 08/16/17 09:38 - Orders/Labs/Meds Orders: Active Orders 24 hr Category Date Time Status EKG 12 Lead [EKG Documentation Completion] [RC] STAT Care 08/16/17 09:12 Active Peripheral IV Care [RC] . DIRECTED Care 08/16/17 09:13 Active RT Aerosol Therapy [RC] ASDIRECTED Care 08/16/17 09:14 Active CULTURE BLOOD [BC] Stat Lab 08/16/17 09:26 Received CULTURE BLOOD [BC] Stat Lab 08/16/17 09:28 Received DRUG SCREEN URINE BIORAD [URCHEM] Stat Lab 08/16/17 09:15 Ordered UA W/MICROSCOPIC [URIN] Stat Lab 08/16/17 09:15 Ordered Levofloxacin/Dextrose 5%-Water [Levaquin in D5W 750 MG/ Med 08/16/17 11:54 Active 150 ML] 750 mg Premix Bag 1 bag IV ONETIME Sodium Chloride 0.9% [Saline Flush] Med 08/16/17 09:12 Active 10 ml FLUSH ASDIRECTED PRN Blood Culture x2 Reflex Set [OM.PC] Stat Oth 08/16/17 09:12 Ordered Peripheral IV Insertion Adult [OM.PC] Stat Oth 08/16/17 09:12 Ordered Medication Orders Levofloxacin/Dextrose 750 mg/ (Premix) 150 mls @ 100 mls/hr IV ONETIME ONE Stop: 08/16/17 13:23 Last Admin: 08/16/17 12:28 Dose: 100 mls/hr Sodium Chloride (Saline Flush) 10 ml FLUSH ASDIRECTED PRN PRN Reason: Keep Vein Open Last Admin: 08/16/17 10:41 Dose: 10 ml Labs: Laboratory Tests 08/16/17 08/16/17 08/16/17 Range/Units 09:15 09:15 09:26 WBC 7.2 (5.0-10.0) 10^3/uL RBC 4.68 (4.6-6.2) 10^6/uL Hgb 13.2 L (14.0-18.0) g/dL Hct 40.5 (40.0-54.0) % MCV 86.5 (80-100) fL MCH 28.2 (27.0-34.0) pg MCHC 32.6 L (33.0-35.0) g/dL Plt Count 343 (150-450) 10^3/uL Neut % (Auto) 66.6 (42.2-75.2) % Lymph % (Auto) 19.8 L (20.5-50.1) % [place] % (Auto) 8.1 H (2-8) % Eos % (Auto) 4.1 H (1.0-3.0) % Baso % (Auto) 1.4 H (0.0-1.0) % Sodium (135-145) mmol/L Potassium (3.6-5.0) mmol/L Chloride (101-111) mmol/L Carbon Dioxide (21.0-31.0) mmol/L Anion Gap BUN (7-18) mg/dL Creatinine (0.6-1.3) mg/dL Est Cr Clr Drug Dosing Estimated GFR (MDRD) BUN/Creatinine Ratio Glucose (74-105) mg/dL Lactic Acid (0.5-2.2) mmol/L Calcium (8.4-10.2) mg/dl Total Bilirubin (0.2-1.0) mg/dL AST (10-42) IU/L ALT (10-60) IU/L Alkaline Phosphatase (42-121) IU/L Troponin I (0.00-0.02) ng/ml B-Natriuretic Peptide (0-100) pg/ml Total Protein (6.7-8.2) g/dl Albumin (3.2-5.5) g/dl Globulin Albumin/Globulin Ratio Urine Color Yellow (YELLOW) Urine Appearance Clear (CLEAR) Urine pH 6.5 (5.0-9.0) Ur Specific [place] 1.020 (1.005-1.030) Urine Protein Negative (NEGATIVE) Urine Glucose (UA) Negative (NEGATIVE) Urine Ketones Negative (NEGATIVE) Urine Occult Blood Negative (NEGATIVE) Urine Nitrite Negative (NEGATIVE) Urine Bilirubin Negative (NEGATIVE) Urine Urobilinogen 0.2 (0.2-1.0) mg/dL Ur Leukocyte Esterase Negative (NEGATIVE) Urine RBC 0-5 /HPF Urine WBC 0-5 (0-5/HPF) /HPF Ur Epithelial Cells Rare /HPF Urine Bacteria Not seen (0-FEW/HPF) /HPF Urine Opiates Screen Negative (NEGATIVE) Ur Oxycodone Screen Positive H (NEGATIVE) Urine Methadone Screen Negative (NEGATIVE) Ur Barbiturates Screen Negative (NEGATIVE) U Tricyclic Antidepress Negative (NEGATIVE) Ur Phencyclidine Scrn Negative (NEGATIVE) Ur Amphetamine Screen Negative (NEGATIVE) U Methamphetamines Scrn Negative (NEGATIVE) Urine MDMA Screen Negative (NEGATIVE) U Benzodiazepines Scrn Positive H (NEGATIVE) Urine Cocaine Screen Negative (NEGATIVE) U Marijuana (THC) Screen Negative (NEGATIVE) Ethyl Alcohol mg/dL 18 08/16/17 Range/Units 09:26 09:26 WBC (5.0-10.0) 10^3/uL RBC (4.6-6.2) 10^6/uL Hgb (14.0-18.0) g/dL Hct (40.0-54.0) % MCV (80-100) fL MCH (27.0-34.0) pg MCHC (33.0-35.0) g/dL Plt Count (150-450) 10^3/uL Neut % (Auto) (42.2-75.2) % Lymph % (Auto) (20.5-50.1) % [place] % (Auto) (2-8) % Eos % (Auto) (1.0-3.0) % Baso % (Auto) (0.0-1.0) % Sodium 140 (135-145) mmol/L Potassium 3.8 (3.6-5.0) mmol/L Chloride 105 (101-111) mmol/L Carbon Dioxide 29.0 (21.0-31.0) mmol/L Anion Gap 9.8 BUN 16 (7-18) mg/dL Creatinine 0.8 (0.6-1.3) mg/dL Est Cr Clr Drug Dosing TNP Estimated GFR (MDRD) > 60 BUN/Creatinine Ratio 20.00 Glucose 104 (74-105) mg/dL Lactic Acid 0.8 (0.5-2.2) mmol/L Calcium 9.2 (8.4-10.2) mg/dl Total Bilirubin 1.1 H (0.2-1.0) mg/dL AST 19 (10-42) IU/L ALT 11 (10-60) IU/L Alkaline Phosphatase 76 (42-121) IU/L Troponin I 0.03 H* (0.00-0.02) ng/ml B-Natriuretic Peptide 2030 H (0-100) pg/ml Total Protein 7.3 (6.7-8.2) g/dl Albumin 3.3 (3.2-5.5) g/dl Globulin 4.0 Albumin/Globulin Ratio 0.83 Urine Color (YELLOW) Urine Appearance (CLEAR) Urine pH (5.0-9.0) Ur Specific [place] (1.005-1.030) Urine Protein (NEGATIVE) Urine Glucose (UA) (NEGATIVE) Urine Ketones (NEGATIVE) Urine Occult Blood (NEGATIVE) Urine Nitrite (NEGATIVE) Urine Bilirubin (NEGATIVE) Urine Urobilinogen (0.2-1.0) mg/dL Ur Leukocyte Esterase (NEGATIVE) Urine RBC /HPF Urine WBC (0-5/HPF) /HPF Ur Epithelial Cells /HPF Urine Bacteria (0-FEW/HPF) /HPF Urine Opiates Screen (NEGATIVE) Ur Oxycodone Screen (NEGATIVE) Urine Methadone Screen (NEGATIVE) Ur Barbiturates Screen (NEGATIVE) U Tricyclic Antidepress (NEGATIVE) Ur Phencyclidine Scrn (NEGATIVE) Ur Amphetamine Screen (NEGATIVE) U Methamphetamines Scrn (NEGATIVE) Urine MDMA Screen (NEGATIVE) U Benzodiazepines Scrn (NEGATIVE) Urine Cocaine Screen (NEGATIVE) U Marijuana (THC) Screen (NEGATIVE) Ethyl Alcohol < 5 mg/dL Meds: Medications Generic Name Dose Route Start Last Admin Trade Name Freq PRN Reason Stop Dose Admin Levofloxacin/Dextrose 750 mg/ 150 mls @ 100 mls/hr 08/16/17 11:54 08/16/17 12 :28 Premix IV 08/16/17 13:23 100 mls/hr ONETIME ONE Administration Sodium Chloride 10 ml 08/16/17 09:12 08/16/17 10:41 Saline Flush FLUSH 10 ml ASDIRECTED PRN Administration Keep Vein Open Discontinued Medications Generic Name Dose Route Start Last Admin Trade Name Freq PRN Reason Stop Dose Admin Albuterol/Ipratropium 3 ml 08/16/17 09:14 08/16/17 10:04 Duoneb 3.0-0.5 Mg/3 Ml NEB 08/16/17 09:15 3 ml ONETIME ONE Administration Albuterol/Ipratropium Confirm 08/16/17 09:43 08/16/17 10:04 Duoneb 3.0-0.5 Mg/3 Ml Administered 08/16/17 09:44 Not Given Dose 3 ml .ROUTE .STK-MED ONE Furosemide 40 mg 08/16/17 10:55 08/16/17 11:19 Lasix PO 08/16/17 10:56 40 mg ONETIME ONE Administration Iopamidol 75 ml 08/16/17 10:54 08/16/17 11:36 Isovue-300 (61%) IVPUSH 08/16/17 10:55 75 ml ONETIME ONE Administration Lorazepam 1.5 mg 08/16/17 10:54 08/16/17 11:16 Ativan IVPUSH 08/16/17 10:55 1.5 mg ONETIME ONE Administration - Radiology Interpretation Free Text/Narrative:: Chest x-ray: Cardiomegaly as on 07/12/17 with increased pulmonary vascular congestion and medial biapical opacities which may represent atelecasis or infiltrate. Recommend follow up. See rad report. Chest CT: Mild patchy opacity in the left lower lobe, likely infiltrate. Correlate clinically and follow up. Mild mediastinal lymphadenopathy, could be reactive. Attention to this on followup as well. Cardiomegaly. See rad report. Departure - Departure Time of Disposition: 13:12 Disposition: Home, Self-Care 01 Condition: Fair Clinical Impression: CHF, Congestive heart failure Pneumonia Qualifiers: Pneumonia type: due to unspecified organism Laterality: left Lung location: lower lobe of lung Qualified Code(s): J18.1 - Lobar pneumonia, unspecified organism - Discharge Information Instructions: Community-Acquired Pneumonia, Adult, Efle-[id number] Forms: ED Department Discharge Additional Instructions: Rx: Levaquin 750mg Follow up in clinic in 3 to 4 days for recheck. Try to quit smoking. - My Orders Last 24 Hours: My Active Orders 08/16/17 09:12 EKG 12 Lead [EKG Documentation Completion] [RC] STAT Sodium Chloride 0.9% [Saline Flush] 10 ml FLUSH ASDIRECTED PRN Blood Culture x2 Reflex Set [OM.PC] Stat Peripheral IV Insertion Adult [OM.PC] Stat 08/16/17 09:13 Peripheral IV Care [RC] . DIRECTED 08/16/17 09:14 RT Aerosol Therapy [RC] ASDIRECTED 08/16/17 09:15 DRUG SCREEN URINE BIORAD [URCHEM] Stat UA W/MICROSCOPIC [URIN] Stat 08/16/17 09:26 CULTURE BLOOD [BC] Stat 08/16/17 09:28 CULTURE BLOOD [BC] Stat 08/16/17 11:54 Levofloxacin/Dextrose 5%-Water [Levaquin in D5W 750 MG/150 ML] 750 mg Premix Bag 1 bag IV ONETIME - Assessment/Plan Last 24 Hours: My Active Orders 08/16/17 09:12 EKG 12 Lead [EKG Documentation Completion] [RC] STAT Sodium Chloride 0.9% [Saline Flush] 10 ml FLUSH ASDIRECTED PRN Blood Culture x2 Reflex Set [OM.PC] Stat Peripheral IV Insertion Adult [OM.PC] Stat 08/16/17 09:13 Peripheral IV Care [RC] . DIRECTED 08/16/17 09:14 RT Aerosol Therapy [RC] ASDIRECTED 08/16/17 09:15 DRUG SCREEN URINE BIORAD [URCHEM] Stat UA W/MICROSCOPIC [URIN] Stat 08/16/17 09:26 CULTURE BLOOD [BC] Stat 08/16/17 09:28 CULTURE BLOOD [BC] Stat 08/16/17 11:54 Levofloxacin/Dextrose 5%-Water [Levaquin in D5W 750 MG/150 ML] 750 mg Premix Bag 1 bag IV ONETIME I have read and agree with the documentation that has been completed regarding this visit. By signing this record, I attest that the documentation was completed in my physical presence and is an accurate record of the encounter.
--- NOTE | 2017-08-18 17:42 | EKG ---
08/16/2017 - MANNIE MEREDITH - TIME: 9:28 a.m. FINDINGS: Sinus rhythm at 87. [facility] /[id number]
== END 2017-08-16 14:00 | disposition home or self-care (01) ==
LOC: DL.ED 08:59
DX: I11.0 Hypertensive heart disease with heart failure (principal); I50.9 Heart failure, unspecified; J18.9 Pneumonia, unspecified organism; Z79.899 Other long term (current) drug therapy
CPT/HCPCS: 36415; 71046; 71260; 80053; 80305; 81001; 83605; 83880; 84484; 85025; 87040; 93005; 94640; 96365; 96366; 96375; 99285; A9270; G0480; J1956; J2060; J7050; Q9967

== ENCOUNTER 2017-08-20 16:30 | Emergency (ER) | payer MEDICAID, OTHER ==
[2017-08-20 16:35] VITALS: BP 105/78
[2017-08-20] MEDS ORDERED: Albuterol/Ipratropium 3.0-0.5 MG/3 ML Neb Soln NEB ONE (16:44)
[2017-08-20] MEDS ORDERED: Sodium Chloride 0.9% 10 ML Syringe FLUSH PRN (17:03)
[2017-08-20 17:13] LABS: SODIUM,NA 137 mmol/L (135-145)
[2017-08-20 17:14] LABS: CHLORIDE,CL 104 mmol/L (101-111)
--- NOTE | 2017-08-20 17:26 | CR ---
Clinical history: 52-year-old male emergency department with "coughing and wheezing". Interpretation: Abnormal cardiac silhouette chronic and relatively unchanged from earlier films this month. No new cephalization of vascular flow, signs of alveolar edema or dependent pleural fluid accumulatio n. Cardiac pacemaker leads intact and unchanged. No new lung mass, hilar lymphadenopathy or focal lobar pneumonia. No bronchial inflammatory changes or signs of bronchospasm/air trapping. CONCLUSION: Chronically abnormal cardiac enlargement. No new signs of heart failure or focal lobar pn eumonia.
[2017-08-20] MEDS ORDERED: LORazepam 1 MG Tab PO ONE (17:33)
[2017-08-20] MEDS ORDERED: Aspirin 81 MG Tab.Chew PO ONE (17:33)
--- NOTE | 2017-08-20 18:37 | EDM.PDOC ---
Scribed by Diann Nayak 08/20/17 4080 for Bernard Olson MD ED HPI GENERAL MEDICAL PROBLEM - General Chief Complaint: Chest Pain Stated Complaint: AMBULANCE Time Seen by Provider: 08/20/17 16:24 Source of Information: Reports: Patient, EMS, EMS Notes Reviewed, RN, RN Notes Reviewed History Limitations: Reports: No Limitations - History of Present Illness INITIAL COMMENTS - FREE TEXT/NARRATIVE: Patient arrives by [facility] with complaint of shortness of breath and chest pressure which has been present recurrently for the last 2 years. Patient has had multiple emergency department evaluations and has not had AMI during any of those evaluations. He has had exacerbations of CHF and COPD occasionally with elevated Troponins but no acute EKG changes. He denies any edema, fever or chills or cough. Today the patient states that he felt some palpitations in the morning. He called his knapsack sprayer. They did a pacemaker check via telephone and told him his pacemaker was functioning properly but to go to the emergency room if he has any other problems. Onset: Other (chronic) Duration: Chronic, Recurring Location: Reports: Chest Quality: Reports: Pressure Severity: Moderate Improves with: Reports: None Worsens with: Reports: Other (exertion) Chest Pain Score (Numeric/FACES): 7 - Related Data Allergies Allergy/AdvReac Type Severity Reaction Status Date / Time No Known Allergies Allergy Verified 08/16/17 10:20 Home Meds: Home Meds Carvedilol [Coreg] 3.125 mg PO BIDMEALS 10/18/15 [History] Lisinopril 2.5 mg PO DAILY #30 04/20/17 [Rx] Potassium Chloride [Klor-Con 10] 20 meq PO DAILY #30 tab.er 04/20/17 [Rx] Sertraline [Zoloft] 50 mg PO DAILY 30 Days #30 tablet 04/20/17 [Rx] Spironolactone [Aldactone] 25 mg PO DAILY 30 Days #30 tablet 04/20/17 [Rx] ALPRAZolam [Xanax] 0.25 mg PO DAILY 07/31/17 [History] Digoxin 0.25 mg PO DAILY 07/31/17 [History] Fluticasone/Salmeterol [Advair 250-50 Diskus] 1 puff INH DAILY 07/31/17 [History ] Melatonin 3 mg PO BEDTIME 07/31/17 [History] Pantoprazole Sodium [Protonix] 40 mg PO DAILY 07/31/17 [History] oxyCODONE HCl/Acetaminophen [Oxycodone-Acetaminophen 5-325] 1 tab PO Q6H PRN [History] Furosemide [Lasix] 80 mg PO BID 08/20/17 [History] Past Medical History - Past Health History Medical/Surgical History: Denies Medical/Surgical History HEENT History: Reports: None Cardiovascular History: Reports: Blood Clots/VTE/DVT, Cardiomyopathy, Heart Failure, Hypertension, Pacemaker, SOB on Exertion Respiratory History: Reports: SOB Gastrointestinal History: Reports: Gastritis, GERD Genitourinary History: Reports: Other (See Below) Other Genitourinary History: liver issues r/t ETOH Musculoskeletal History: Reports: Arthritis, Other (See Below) Other Musculoskeletal History: torn left and right upper arm tendon. missed surgery 03/2017 Neurological History: Reports: None Psychiatric History: Reports: Addiction, Anxiety, Depression, Panic Attack Other Psychiatric History: Pt states that he has been in treatment for alcoholism many times, last times 10 years ago, and he quit drinking for 8 years Endocrine/Metabolic History: Reports: None Hematologic History: Reports: None Immunologic History: Reports: None Oncologic (Cancer) History: Reports: None Dermatologic History: Reports: None - Infectious Disease History Infectious Disease History: Reports: None - Past Surgical History Head Surgeries/Procedures: Reports: None Cardiovascular Surgical History: Reports: AICD, Percutaneous Transluminal Angioplasty Respiratory Surgical History: Reports: None GI Surgical History: Reports: None Male Surgical History: Reports: None Neurological Surgical History: Reports: None Musculoskeletal Surgical History: Reports: None Social & Family History - Family History Family Medical History: Noncontributory Cardiac: Reports: Hypertension Other Cardiac Family History: Dad and paternal grandmother have hypertension. Respiratory: Reports: Asthma Other Respiratory Family Hisory: Mom and dad have asthma. Endocrine/Metabolic: Reports: Diabetes, Type I Other Endocrine/Metabolic Family History: Dad and paternal grandmother have type I diabetes. - Caffeine Use Caffeine Use: Reports: Coffee - Living Situation & Occupation Living situation: Reports: with Family ED ROS GENERAL - Review of Systems Review Of Systems: ROS reveals no pertinent complaints other than HPI. ED EXAM, GENERAL - Physical Exam Exam: See Below Exam Limited By: No Limitations General Appearance: Alert, No Apparent Distress, Anxious, Other (chronically ill appearing) Eye Exam: Bilateral Eye: Normal Inspection Ears: Hearing Grossly Normal Nose: Normal Inspection, Normal Mucosa, No Blood Throat/Mouth: Normal Lips, Normal Voice, No Airway Compromise Head: Atraumatic, Normocephalic Neck: Normal Inspection, Supple, Non-Tender, Full Range of Motion Respiratory/Chest: No Respiratory Distress, No Accessory Muscle Use, Chest Non- Tender, Decreased Breath Sounds, Rales. No: Rhonchi, Wheezing Cardiovascular: Regular Rate, Rhythm, No Edema, No JVD GI/Abdominal: Normal Bowel Sounds, Soft, Non-Tender, No Distention. No: Guarding, Rigid, Rebound (Male) Exam: Deferred Rectal (Males) Exam: Deferred Back Exam: Normal Inspection Extremities: Normal Inspection, Normal Range of Motion, Non-Tender, Normal Capillary Refill, No Pedal Edema Neurological: Alert, Oriented, No Motor/Sensory Deficits Psychiatric: Anxious Skin Exam: Warm, Dry, Intact, Normal Color, No Rash EKG INTERPRETATION EKG Date: 08/20/17 Time: 16:41 Rhythm: Other (sinus rhythm) Rate (Beats/Min): 82 P-Wave: Present (probable left atrial abnormality) QRS: Other (nonspecific IVCD.) Comparison: No Change Course - Vital Signs Last Recorded V/S: Last Vital Signs Temp 37.2 C 08/20/17 16:31 Pulse 71 08/20/17 16:52 Resp 12 08/20/17 16:31 BP 105/78 08/20/17 16:31 Pulse Ox 97 08/20/17 16:31 - Orders/Labs/Meds Orders: Active Orders 24 hr Category Date Time Status EKG Documentation Completion [RC] URGENT Care 08/20/17 16:43 Active Peripheral IV Care [RC] . DIRECTED Care 08/20/17 17:04 Active RT Aerosol Therapy [RC] ASDIRECTED Care 08/20/17 16:44 Active CULTURE BLOOD [BC] Stat Lab 08/20/17 17:25 Received CULTURE BLOOD [BC] Stat Lab 08/20/17 17:29 Received DRUG SCREEN URINE BIORAD [URCHEM] Stat Lab 08/20/17 17:21 Ordered UA W/MICROSCOPIC [URIN] Stat Lab 08/20/17 17:21 Ordered Sodium Chloride 0.9% [Saline Flush] Med 08/20/17 17:03 Active 10 ml FLUSH ASDIRECTED PRN Blood Culture x2 Reflex Set [OM.PC] Stat Oth 08/20/17 17:03 Ordered Peripheral IV Insertion Adult [OM.PC] Stat Ot 08/20/17 17:03 Ordered Medication Orders Sodium Chloride (Saline Flush) 10 ml FLUSH ASDIRECTED PRN PRN Reason: Keep Vein Open Last Admin: 08/20/17 17:19 Dose: 10 ml Labs: Laboratory Tests 08/20/17 08/20/17 08/20/17 Range/Units 16:31 16:31 17:21 WBC 6.7 (5.0-10.0) 10^3/uL RBC 4.13 L (4.6-6.2) 10^6/uL Hgb 11.7 L D (14.0-18.0) g/dL Hct 36.2 L (40.0-54.0) % MCV 87.7 (80-100) fL MCH 28.3 (27.0-34.0) pg MCHC 32.3 L (33.0-35.0) g/dL Plt Count 243 D (150-450) 10^3/uL Neut % (Auto) 65.3 (42.2-75.2) % Lymph % (Auto) 18.1 L (20.5-50.1) % [place] % (Auto) 11.0 H (2-8) % Eos % (Auto) 4.6 H (1.0-3.0) % Baso % (Auto) 1.0 (0.0-1.0) % Sodium 137 (135-145) mmol/L Potassium 3.5 L (3.6-5.0) mmol/L Chloride 104 (101-111) mmol/L Carbon Dioxide 24.0 (21.0-31.0) mmol/L Anion Gap 12.5 BUN 16 (7-18) mg/dL Creatinine 0.8 (0.6-1.3) mg/dL Est Cr Clr Drug Dosing 110.47 mL/min Estimated GFR (MDRD) > 60 BUN/Creatinine Ratio 20.00 Glucose 129 H (74-105) mg/dL Lactic Acid (0.5-2.2) mmol/L Calcium 8.8 (8.4-10.2) mg/dl Total Bilirubin 1.3 H (0.2-1.0) mg/dL AST 24 (10-42) IU/L ALT 11 (10-60) IU/L Alkaline Phosphatase 106 (42-121) IU/L Troponin I 0.02 (0.00-0.02) ng/ml B-Natriuretic Peptide 2910 H (0-100) pg/ml Total Protein 7.4 (6.7-8.2) g/dl Albumin 3.4 (3.2-5.5) g/dl Globulin 4.0 Albumin/Globulin Ratio 0.85 Urine Color Yellow (YELLOW) Urine Appearance Clear (CLEAR) Urine pH 7.0 (5.0-9.0) Ur Specific Valier 1.015 (1.005-1.030) Urine Protein 30 H (NEGATIVE) Urine Glucose (UA) Negative (NEGATIVE) Urine Ketones Negative (NEGATIVE) Urine Occult Blood Negative (NEGATIVE) Urine Nitrite Negative (NEGATIVE) Urine Bilirubin Negative (NEGATIVE) Urine Urobilinogen 1.0 (0.2-1.0) mg/dL Ur Leukocyte Esterase Negative (NEGATIVE) Urine RBC 0-5 /HPF Urine WBC 0-5 (0-5/HPF) /HPF Ur Epithelial Cells Not seen /HPF Amorphous Sediment Rare (0/HPF) /HPF Urine Bacteria Rare (0-FEW/HPF) /HPF Urine Mucus Rare /LPF Urine Opiates Screen (NEGATIVE) Ur Oxycodone Screen (NEGATIVE) Urine Methadone Screen (NEGATIVE) Ur Barbiturates Screen (NEGATIVE) U Tricyclic Antidepress (NEGATIVE) Ur Phencyclidine Scrn (NEGATIVE) Ur Amphetamine Screen (NEGATIVE) U Methamphetamines Scrn (NEGATIVE) Urine MDMA Screen (NEGATIVE) U Benzodiazepines Scrn (NEGATIVE) Urine Cocaine Screen (NEGATIVE) U Marijuana (THC) Screen (NEGATIVE) Ethyl Alcohol < 5 mg/dL 18 08/20/17 Range/Units 17:21 17:25 WBC (5.0-10.0) 10^3/uL RBC (4.6-6.2) 10^6/uL Hgb (14.0-18.0) g/dL Hct (40.0-54.0) % MCV (80-100) fL MCH (27.0-34.0) pg MCHC (33.0-35.0) g/dL Plt Count (150-450) 10^3/uL Neut % (Auto) (42.2-75.2) % Lymph % (Auto) (20.5-50.1) % [place] % (Auto) (2-8) % Eos % (Auto) (1.0-3.0) % Baso % (Auto) (0.0-1.0) % Sodium (135-145) mmol/L Potassium (3.6-5.0) mmol/L Chloride (101-111) mmol/L Carbon Dioxide (21.0-31.0) mmol/L Anion Gap BUN (7-18) mg/dL Creatinine (0.6-1.3) mg/dL Est Cr Clr Drug Dosing mL/min Estimated GFR (MDRD) BUN/Creatinine Ratio Glucose (74-105) mg/dL Lactic Acid 1.1 (0.5-2.2) mmol/L Calcium (8.4-10.2) mg/dl Total Bilirubin (0.2-1.0) mg/dL AST (10-42) IU/L ALT (10-60) IU/L Alkaline Phosphatase (42-121) IU/L Troponin I (0.00-0.02) ng/ml B-Natriuretic Peptide (0-100) pg/ml Total Protein (6.7-8.2) g/dl Albumin (3.2-5.5) g/dl Globulin Albumin/Globulin Ratio Urine Color (YELLOW) Urine Appearance (CLEAR) Urine pH (5.0-9.0) Ur Specific Valier (1.005-1.030) Urine Protein (NEGATIVE) Urine Glucose (UA) (NEGATIVE) Urine Ketones (NEGATIVE) Urine Occult Blood (NEGATIVE) Urine Nitrite (NEGATIVE) Urine Bilirubin (NEGATIVE) Urine Urobilinogen (0.2-1.0) mg/dL Ur Leukocyte Esterase (NEGATIVE) Urine RBC /HPF Urine WBC (0-5/HPF) /HPF Ur Epithelial Cells /HPF Amorphous Sediment (0/HPF) /HPF Urine Bacteria (0-FEW/HPF) /HPF Urine Mucus /LPF Urine Opiates Screen Negative (NEGATIVE) Ur Oxycodone Screen Positive H (NEGATIVE) Urine Methadone Screen Negative (NEGATIVE) Ur Barbiturates Screen Negative (NEGATIVE) U Tricyclic Antidepress Negative (NEGATIVE) Ur Phencyclidine Scrn Negative (NEGATIVE) Ur Amphetamine Screen Negative (NEGATIVE) U Methamphetamines Scrn Negative (NEGATIVE) Urine MDMA Screen Negative (NEGATIVE) U Benzodiazepines Scrn Negative (NEGATIVE) Urine Cocaine Screen Negative (NEGATIVE) U Marijuana (THC) Screen Negative (NEGATIVE) Ethyl Alcohol mg/dL Meds: Medications Generic Name Dose Route Start Last Admin Trade Name Freq PRN Reason Stop Dose Admin Sodium Chloride 10 ml 08/20/17 17:03 08/20/17 17:19 Saline Flush FLUSH 10 ml ASDIRECTED PRN Administration Keep Vein Open Discontinued Medications Generic Name Dose Route Start Last Admin Trade Name Freq PRN Reason Stop Dose Admin Albuterol/Ipratropium 3 ml 08/20/17 16:44 08/20/17 16:52 Duoneb 3.0-0.5 Mg/3 Ml NEB 08/20/17 16:45 3 ml ONETIME ONE Administration Aspirin 324 mg 08/20/17 17:33 08/20/17 17:37 Aspirin PO 08/20/17 17:34 324 mg ONETIME ONE Administration Lorazepam 1 mg 08/20/17 17:33 08/20/17 17:37 Ativan PO 08/20/17 17:34 1 mg ONETIME ONE Administration - Radiology Interpretation Free Text/Narrative:: Chest x-ray: Heart demonstrates moderate diffuse enlargement. Atelectatic and/ or early infiltrative changes within both lung bases. See rad report. 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 However, since he has maintained sobriety, he has been much more anxious. Pt acknowledges that he is doing better medically , but he has struggled with anxiety. I advised the pt to f/u with his PCP for anxiety management. Departure - Departure Time of Disposition: 18:25 Disposition: Home, Self-Care 01 Condition: Good Clinical Impression: Atypical chest pain, Anxiety Chronic CHF Qualifiers: Heart failure type: unspecified Qualified Code(s): I50.9 - Heart failure, unspecified Instructions: Nonspecific Chest Pain, [id number] Forms: ED Department Discharge Additional Instructions: Continue with current medications as prescribed. Follow up in clinic in 4 to 5 days. - My Orders Last 24 Hours: My Active Orders 08/20/17 16:43 EKG Documentation Completion [RC] URGENT 08/20/17 16:44 RT Aerosol Therapy [RC] ASDIRECTED 08/20/17 17:03 Sodium Chloride 0.9% [Saline Flush] 10 ml FLUSH ASDIRECTED PRN Blood Culture x2 Reflex Set [OM.PC] Stat Peripheral IV Insertion Adult [OM.PC] Stat 08/20/17 17:04 Peripheral IV Care [RC] . DIRECTED 08/20/17 17:21 DRUG SCREEN URINE BIORAD [URCHEM] Stat UA W/MICROSCOPIC [URIN] Stat 08/20/17 17:25 CULTURE BLOOD [BC] Stat 08/20/17 17:29 CULTURE BLOOD [BC] Stat - Assessment/Plan Last 24 Hours: My Active Orders 08/20/17 16:43 EKG Documentation Completion [RC] URGENT 08/20/17 16:44 RT Aerosol Therapy [RC] ASDIRECTED 08/20/17 17:03 Sodium Chloride 0.9% [Saline Flush] 10 ml FLUSH ASDIRECTED PRN Blood Culture x2 Reflex Set [OM.PC] Stat Peripheral IV Insertion Adult [OM.PC] Stat 08/20/17 17:04 Peripheral IV Care [RC] . DIRECTED 08/20/17 17:21 DRUG SCREEN URINE BIORAD [URCHEM] Stat UA W/MICROSCOPIC [URIN] Stat 08/20/17 17:25 CULTURE BLOOD [BC] Stat 08/20/17 17:29 CULTURE BLOOD [BC] Stat I have read and agree with the documentation that has been completed regarding this visit. By signing this record, I attest that the documentation was completed in my physical presence and is an accurate record of the encounter.
--- NOTE | 2017-08-21 13:42 | EKG ---
08/20/2017- MANNIE MEREDITH - FINDINGS: EKG, per my reading, shows sinus rhythm at the rate of 80s with no acute ST changes. [facility] /[id number]
== END 2017-08-20 18:37 | disposition home or self-care (01) ==
LOC: DL.ED 16:30
DX: F41.9 Anxiety disorder, unspecified (principal); I11.0 Hypertensive heart disease with heart failure; I50.9 Heart failure, unspecified; K21.9 Gastro-esophageal reflux disease without esophagitis; Z79.899 Other long term (current) drug therapy
CPT/HCPCS: 36415; 71046; 80053; 80305; 81001; 83605; 83880; 84484; 85025; 87040; 93005; 94640; 99285; A9270; G0480; J7050

== ENCOUNTER 2017-08-21 11:00 | Emergency (ER) | payer MEDICAID, OTHER ==
[2017-08-21 12:23] VITALS: BP 107/81
[2017-08-21] MEDS ORDERED: diphenhydrAMINE 25 MG Tab PO ONE (12:55)
[2017-08-21] MEDS ORDERED: Ibuprofen 800 MG Tab PO ONE (12:56)
--- NOTE | 2017-08-21 14:09 | ER ---
SUBJECTIVE: The patient is a 52-year-old male who is a frequent visitor to the ER. He was just seen yesterday rode by ambulance; was evaluated by Dr. Olson; had chest x-ray, EKG, full lab work, and blood cultures. His chest x-ray did not show any acute pneumonic process. His BNP is elevated at the high 2000 level. His cardiac enzymes are unremarkable. He has ongoing congestive heart failure. He has anxiety. He has Xanax on his medication list, however, yesterday's drug screen was negative for benzodiazepines. However, he was given a benzodiazepine yesterday in the ER and discharge. He comes in today stating that he noticed some swelling in his feet in the night, although it is gone now. He states he does cough up some greenish sputum at times. He is very anxious. He comes in wanting something for anxiety and pain pills, even though he has Xanax at home. He states he did not take anything because an ambulance just came and picked him up. I asked him if the ambulance just came in and picked him up or did he call the ambulance, and he agreed that he called the ambulance. He states he has a general feeling of "not feeling very good." He arrives with oxygen level of 98% to 100% on room air and is afebrile. He is talkative. He denies any bowel or bladder changes, bleeding, melena, or hematochezia. No trauma. No syncope or near syncope. PAST MEDICAL AND SURGICAL HISTORY: Significant for hypertension; noncompliance; chronic alcoholism with multiple alcoholic treatments; depression; anxiety; congestive heart failure; GERD; chronic pain medications; chronic tobacco abuse; blood clots of his lower extremities; cardiomyopathy; hypertension; pacemaker; recurrent dyspnea; AICD; coronary vascular disease with angioplasty; gastritis, recurrent; liver disease, secondary to alcoholism; arthritis; bilateral shoulder pain; right upper arm surgery; multiple addictions; and panic attacks. FAMILY HISTORY: Hypertension, diabetes, and asthma. MEDICATIONS: Current medications include: 1. Coreg 3.125 mg p.o. b.i.d. 2. Lisinopril 2.5 mg p.o. daily. 3. KCl 20 mEq p.o. daily. 4. Zoloft 50 mg p.o. daily. 5. Spironolactone 25 mg p.o. daily. 6. Xanax 0.25 mg p.o. daily. 7. Digoxin 0.25 mg p.o. daily. 8. Advair 250/50 one puff inhaled daily. 9. Melatonin 3 mg p.o. at bedtime. 10.Protonix 40 mg p.o. daily. 11.Percocet 5/325 mg one p.o. q.6 hours p.r.n. 12.Lasix 80 mg p.o. b.i.d. ALLERGIES: He denies being allergic to any known medications. SOCIAL HISTORY: Chronic alcoholism; states he quit drinking 8 years ago. He has been smoking cigarettes for 10 years. REVIEW OF SYSTEMS: No fevers. No chills. No chest pain today. He does have some vague dyspnea, is chronic. He has a cough. He states he is bringing up some greenish sputum. He just had a chest x-ray yesterday; it was not remarkable for acute infection. He had some swelling in the night of his feet; it is now resolved. No bites, stings, or rashes. No trauma or falls. No syncope or near syncope. Please see HPI. OBJECTIVE: Vital Signs: Height is 1.75 m, weight is 77 kg. He is afebrile. Heart rate is 88, blood pressure is 115/74, respiratory rate 16, oxygen is 98% to 100% on room air. General: He is in no respiratory distress, talkative. Warm. He appears older than stated age. Head: Normocephalic and atraumatic. Chest: Clear. No wheezing, rhonchi, or rales. Cardiovascular: RRR. Neck: Unremarkable. Abdomen: Soft and benign. Extremities: Calves are nontender. There is no pedal edema. No swelling of his feet or ankles which he had complained about last night. He has good pedal pulses. LABORATORY DATA/STUDIES: His BNP is 3190, just slightly more elevated than yesterday's. His digoxin was normal at 0.5. EMERGENCY ROOM COURSE: His vitals remained stable. He has no coughing or whatsoever during his ER visit. Talkative. No swelling. He remained stable. He was given a tablet of Benadryl and one of Motrin. He has pain medications and Xanax at home but failed to take these. He does not appear to be toxic and in no acute process. Yesterday, his chart was reviewed. He did have a chest x-ray and that was not remarkable for acute infections. ASSESSMENT: 1. Bronchitis. 2. Anxiety. 3. Congestive heart failure. PLAN: Advised patient the importance to take his home medicines including his diuretics as he did not take any medicines this morning. He called an ambulance. This was as soon as he got up and did not take his medications. A prescription is written for his azithromycin and ProAir for the patient. He should take [id number] cough medicine or syrup if he needs this. Continue with his medicines. Follow up in clinic for recheck next week. [facility] /[id number]
== END 2017-08-21 13:07 | disposition home or self-care (01) ==
LOC: DL.ED 11:00
DX: J40 Bronchitis, not specified as acute or chronic (principal); I11.0 Hypertensive heart disease with heart failure; I50.9 Heart failure, unspecified; F41.9 Anxiety disorder, unspecified; E11.9 Type 2 diabetes mellitus without complications; F17.210 Nicotine dependence, cigarettes, uncomplicated; Z79.899 Other long term (current) drug therapy
CPT/HCPCS: 36415; 80162; 83880; 99285; A9270

== ENCOUNTER 2017-08-30 08:53 | Emergency (ER) | payer MEDICAID ==
--- NOTE | 2017-08-30 09:10 | EDM.PDOC ---
ED HPI GENERAL MEDICAL PROBLEM - General Chief Complaint: Chest Pain Stated Complaint: by ambulance Time Seen by Provider: 08/30/17 09:09 Source of Information: Reports: Patient, EMS, EMS Notes Reviewed, RN, RN Notes Reviewed History Limitations: Reports: No Limitations - History of Present Illness INITIAL COMMENTS - FREE TEXT/NARRATIVE: Pt to ER per [facility] with c/o sharp pains in the chest and SOB. Patient states he has a follow up appointment next week in [place]. Patient denies fever or chills, states he does have sweats from time to time. Denies N/V but admits to diarrhea at times. Patient denies any drug or alcohol use, admits to taking prescribed medications as directed. Patient also c/o anxiety and asks for something to calm him down. Onset: Gradual Duration: Intermittent Location: Reports: Chest Quality: Reports: Stabbing Severity: Mild Improves with: Reports: None Worsens with: Reports: None Associated Symptoms: Reports: Chest Pain, Shortness of Breath - Related Data Allergies Allergy/AdvReac Type Severity Reaction Status Date / Time No Known Allergies Allergy Verified 08/30/17 09:07 Home Meds: Home Meds Carvedilol [Coreg] 3.125 mg PO BIDMEALS 10/18/15 [History] Lisinopril 2.5 mg PO DAILY #30 04/20/17 [Rx] Potassium Chloride [Klor-Con 10] 20 meq PO DAILY #30 tab.er 04/20/17 [Rx] Sertraline [Zoloft] 50 mg PO DAILY 30 Days #30 tablet 04/20/17 [Rx] Spironolactone [Aldactone] 25 mg PO DAILY 30 Days #30 tablet 04/20/17 [Rx] ALPRAZolam [Xanax] 0.25 mg PO DAILY 07/31/17 [History] Digoxin 0.25 mg PO DAILY 07/31/17 [History] Fluticasone/Salmeterol [Advair 250-50 Diskus] 1 puff INH DAILY 07/31/17 [History ] Melatonin 3 mg PO BEDTIME 07/31/17 [History] Pantoprazole Sodium [Protonix] 40 mg PO DAILY 07/31/17 [History] oxyCODONE HCl/Acetaminophen [Oxycodone-Acetaminophen 5-325] 1 tab PO Q6H PRN [History] Furosemide [Lasix] 80 mg PO BID 08/20/17 [History] Past Medical History - Past Health History Medical/Surgical History: Denies Medical/Surgical History HEENT History: Reports: None Cardiovascular History: Reports: Blood Clots/VTE/DVT, Cardiomyopathy, Heart Failure, Hypertension, Pacemaker, SOB on Exertion Respiratory History: Reports: SOB Gastrointestinal History: Reports: Gastritis, GERD Genitourinary History: Reports: Other (See Below) Other Genitourinary History: liver issues r/t ETOH Musculoskeletal History: Reports: Arthritis, Other (See Below) Other Musculoskeletal History: torn left and right upper arm tendon. missed surgery 03/2017 Neurological History: Reports: None Psychiatric History: Reports: Addiction, Anxiety, Depression, Panic Attack Other Psychiatric History: Pt states that he has been in treatment for alcoholism many times, last times 10 years ago, and he quit drinking for 8 years Endocrine/Metabolic History: Reports: None Hematologic History: Reports: None Immunologic History: Reports: None Oncologic (Cancer) History: Reports: None Dermatologic History: Reports: None - Infectious Disease History Infectious Disease History: Reports: None - Past Surgical History Head Surgeries/Procedures: Reports: None Cardiovascular Surgical History: Reports: AICD, Percutaneous Transluminal Angioplasty Respiratory Surgical History: Reports: None GI Surgical History: Reports: None Male Surgical History: Reports: None Neurological Surgical History: Reports: None Musculoskeletal Surgical History: Reports: None Social & Family History - Family History Family Medical History: Noncontributory Cardiac: Reports: Hypertension Other Cardiac Family History: Dad and paternal grandmother have hypertension. Respiratory: Reports: Asthma Other Respiratory Family Hisory: Mom and dad have asthma. Endocrine/Metabolic: Reports: Diabetes, Type I Other Endocrine/Metabolic Family History: Dad and paternal grandmother have type I diabetes. - Caffeine Use Caffeine Use: Reports: Coffee, Soda - Living Situation & Occupation Living situation: Reports: with Family ED ROS GENERAL - Review of Systems Review Of Systems: ROS reveals no pertinent complaints other than HPI. ED EXAM, GENERAL - Physical Exam Exam: See Below Exam Limited By: No Limitations General Appearance: Alert, WD/WN, No Apparent Distress Eye Exam: Bilateral Eye: EOMI, Normal Inspection Ears: Normal External Exam, Hearing Grossly Normal Nose: Normal Inspection Throat/Mouth: Normal Inspection, Normal Voice, No Airway Compromise Head: Atraumatic, Normocephalic Neck: Normal Inspection, Supple, Non-Tender, Full Range of Motion Respiratory/Chest: No Respiratory Distress, No Accessory Muscle Use, Chest Non- Tender, Decreased Breath Sounds Cardiovascular: Regular Rate, Rhythm, No Edema, Systolic Murmur Peripheral Pulses: 2+: Radial (L), Radial (R) GI/Abdominal: Normal Bowel Sounds, Soft, Non-Tender, No Organomegaly, No Distention (Male) Exam: Deferred Rectal (Males) Exam: Deferred Back Exam: Normal Inspection, Full Range of Motion Extremities: Normal Inspection, Normal Range of Motion, Non-Tender, Normal Capillary Refill, No Pedal Edema Neurological: Alert, Oriented, CN II-XII Intact, Normal Cognition, Normal Gait, Normal Reflexes, No Motor/Sensory Deficits Psychiatric: Anxious Skin Exam: Warm, Dry, Intact, Normal Color, No Rash Lymphatic: No Adenopathy EKG INTERPRETATION EKG Date: 08/30/17 Time: 09:07 Rhythm: Other (Paced) Rate (Beats/Min): 101 Comparison: Change From Previous EKG Course - Vital Signs Last Recorded V/S: Last Vital Signs Temp 98.1 F 08/30/17 09:15 Pulse 103 H 08/30/17 09:15 Resp 27 H 08/30/17 09:15 BP 127/89 08/30/17 09:15 Pulse Ox 100 08/30/17 09:15 - Orders/Labs/Meds Orders: Active Orders 24 hr Category Date Time Status EKG Documentation Completion [RC] STAT Care 08/30/17 09:07 Active Labs: Laboratory Tests 08/30/17 08/30/17 08/30/17 Range/Units 09:17 09:17 09:17 WBC 7.3 (5.0-10.0) 10^3/uL RBC 5.15 (4.6-6.2) 10^6/uL Hgb 14.5 D (14.0-18.0) g/dL Hct 44.5 (40.0-54.0) % MCV 86.4 (80-100) fL MCH 28.2 (27.0-34.0) pg MCHC 32.6 L (33.0-35.0) g/dL Plt Count 209 (150-450) 10^3/uL Neut % (Auto) 73.6 (42.2-75.2) % Lymph % (Auto) 11.0 L (20.5-50.1) % [place] % (Auto) 7.6 (2-8) % Eos % (Auto) 7.5 H (1.0-3.0) % Baso % (Auto) 0.3 (0.0-1.0) % Sodium 140 (135-145) mmol/L Potassium 3.8 (3.6-5.0) mmol/L Chloride 108 (101-111) mmol/L Carbon Dioxide 24.0 (21.0-31.0) mmol/L Anion Gap 11.8 BUN 12 (7-18) mg/dL Creatinine 0.8 (0.6-1.3) mg/dL Est Cr Clr Drug Dosing 110.47 mL/min Estimated GFR (MDRD) > 60 BUN/Creatinine Ratio 15.00 Glucose 108 H (74-105) mg/dL Calcium 8.9 (8.4-10.2) mg/dl Total Bilirubin 1.4 H (0.2-1.0) mg/dL AST 17 (10-42) IU/L ALT 8 L (10-60) IU/L Alkaline Phosphatase 108 (42-121) IU/L Troponin I 0.02 (0.00-0.02) ng/ml B-Natriuretic Peptide 1970 H (0-100) pg/ml Total Protein 7.3 (6.7-8.2) g/dl Albumin 3.5 (3.2-5.5) g/dl Globulin 3.8 Albumin/Globulin Ratio 0.92 Meds: Medications Discontinued Medications Generic Name Dose Route Start Last Admin Trade Name Walter PRN Reason Stop Dose Admin Lorazepam 0.5 mg 08/30/17 09:30 08/30/17 09:37 Ativan PO 08/30/17 09:31 0.5 mg ONETIME ONE Administration Departure - Departure Time of Disposition: 10:26 Disposition: Home, Self-Care 01 Condition: Fair Clinical Impression: CHF, Congestive heart failure, Anxiety - Discharge Information Instructions: Panic Attack, [id number], Heart Failure, [id number] Forms: ED Department Discharge Additional Instructions: Continue taking medications as prescribed Follow up with your primary care facility - My Orders Last 24 Hours: My Active Orders 08/30/17 09:07 EKG Documentation Completion [RC] STAT - Assessment/Plan Last 24 Hours: My Active Orders 08/30/17 09:07 EKG Documentation Completion [RC] STAT
[2017-08-30 09:16] VITALS: BP 127/89
[2017-08-30] MEDS ORDERED: LORazepam 0.5 MG Tab PO ONE (09:30)
[2017-08-30 09:48] LABS: CHLORIDE,CL 108 mmol/L (101-111); SODIUM,NA 140 mmol/L (135-145)
== END 2017-08-30 10:36 | disposition home or self-care (01) ==
LOC: DL.ED 08:53
DX: I11.0 Hypertensive heart disease with heart failure (principal); I50.9 Heart failure, unspecified; F41.9 Anxiety disorder, unspecified; Z79.899 Other long term (current) drug therapy
CPT/HCPCS: 36415; 80053; 83880; 84484; 85025; 93005; 99285; A9270

== ENCOUNTER 2017-09-11 07:09 | Observation (INO) | payer MEDICAID ==
--- NOTE | 2017-09-11 07:26 | EDM.PDOC ---
ED HPI GENERAL MEDICAL PROBLEM - General Chief Complaint: Respiratory Problem Stated Complaint: AMBULANCE Time Seen by Provider: 09/11/17 07:22 Source of Information: Reports: Patient, EMS, Old Records, RN, RN Notes Reviewed History Limitations: Reports: No Limitations - History of Present Illness INITIAL COMMENTS - FREE TEXT/NARRATIVE: Pt presents by [facility] from home with c/o waking with shortness of breath. Pt reports history of "severe cardiac disease", CAD, CHF, and COPD. He c/o non- productive cough that began about 5 days ago, which has become more productive with clear and yellow thick sputum. Pt denies chest pain at this time, but has been having chest pressure recurrently for over a year. Pt denies fever, abdominal pain, N/V/D/C, or lower extremity edema. He admits to swelling of his hands, orthopnea, and anxiety. He also report recurrent episodes of tremors with diaphoresis and chills. Pt states that he recently relapsed and had a 4 day "ballard" of heavy alcohol and methamphetamine use, but now has abstained for the last 2 days. Pt continues to smoke a pack of cigarettes daily. Onset: Other (chronic/recurrent, progressively worsening) Duration: Chronic, Getting Worse, Recurring Location: Reports: Chest Quality: Reports: Pressure, Same as Previous Episode Severity: Severe Improves with: Reports: None Worsens with: Reports: Other (exertion) Associated Symptoms: Reports: No Other Symptoms Treatments TRASHMAN: Reports: Other Medication(s) Anterior Chest Pain Score (Numeric/FACES): 6 - Related Data Allergies Allergy/AdvReac Type Severity Reaction Status Date / Time No Known Allergies Allergy Verified 08/30/17 09:07 Home Meds: Home Meds Carvedilol [Coreg] 3.125 mg PO BIDMEALS 10/18/15 [History] Lisinopril 2.5 mg PO DAILY #30 04/20/17 [Rx] Potassium Chloride [Klor-Con 10] 20 meq PO DAILY #30 tab.er 04/20/17 [Rx] Sertraline [Zoloft] 50 mg PO DAILY 30 Days #30 tablet 04/20/17 [Rx] Spironolactone [Aldactone] 25 mg PO DAILY 30 Days #30 tablet 04/20/17 [Rx] ALPRAZolam [Xanax] 0.25 mg PO DAILY 07/31/17 [History] Digoxin 0.25 mg PO DAILY 07/31/17 [History] Fluticasone/Salmeterol [Advair 250-50 Diskus] 1 puff INH DAILY 07/31/17 [History ] Melatonin 3 mg PO BEDTIME 07/31/17 [History] Pantoprazole Sodium [Protonix] 40 mg PO DAILY 07/31/17 [History] oxyCODONE HCl/Acetaminophen [Oxycodone-Acetaminophen 5-325] 1 tab PO Q6H PRN [History] Furosemide [Lasix] 80 mg PO BID 08/20/17 [History] Past Medical History - Past Health History Medical/Surgical History: Denies Medical/Surgical History HEENT History: Reports: None Cardiovascular History: Reports: Blood Clots/VTE/DVT, Cardiomyopathy, Heart Failure, Hypertension, Pacemaker, SOB on Exertion Respiratory History: Reports: SOB Gastrointestinal History: Reports: Gastritis, GERD Genitourinary History: Reports: Other (See Below) Other Genitourinary History: liver issues r/t ETOH Musculoskeletal History: Reports: Arthritis, Other (See Below) Other Musculoskeletal History: torn left and right upper arm tendon. missed surgery 03/2017 Neurological History: Reports: None Psychiatric History: Reports: Addiction, Anxiety, Depression, Panic Attack Other Psychiatric History: Pt states that he has been in treatment for alcoholism many times, last times 10 years ago, and he quit drinking for 8 years Endocrine/Metabolic History: Reports: None Hematologic History: Reports: None Immunologic History: Reports: None Oncologic (Cancer) History: Reports: None Dermatologic History: Reports: None - Infectious Disease History Infectious Disease History: Reports: None - Past Surgical History Head Surgeries/Procedures: Reports: None Cardiovascular Surgical History: Reports: AICD, Percutaneous Transluminal Angioplasty Respiratory Surgical History: Reports: None GI Surgical History: Reports: None Male Surgical History: Reports: None Neurological Surgical History: Reports: None Musculoskeletal Surgical History: Reports: None Social & Family History - Family History Family Medical History: Noncontributory Cardiac: Reports: Hypertension Other Cardiac Family History: Dad and paternal grandmother have hypertension. Respiratory: Reports: Asthma Other Respiratory Family Hisory: Mom and dad have asthma. Endocrine/Metabolic: Reports: Diabetes, Type I Other Endocrine/Metabolic Family History: Dad and paternal grandmother have type I diabetes. - Tobacco Use Smoking Status *Q: Current Every Day Smoker Tobacco Use Within Last Twelve Months: Cigarettes - Caffeine Use Caffeine Use: Reports: Coffee, Soda - Alcohol Use Alcohol Use History: Yes Alcohol Use Frequency: Binges - Recreational Drug Use Recreational Drug Use: Yes Drug Use in Last 12 Months: Yes Recreational Drug Type: Reports: Marijuana/Hashish, Methamphetamine Recreational Drug Use Frequency: Binges Recreational Drug Route: Reports: Inhaled (smokes) - Living Situation & Occupation Living situation: Reports: with Family ED ROS GENERAL - Review of Systems Review Of Systems: ROS reveals no pertinent complaints other than HPI. ED EXAM, GENERAL - Physical Exam Exam: See Below Exam Limited By: No Limitations General Appearance: Alert, No Apparent Distress, Anxious, Other (chronically ill , non-toxic appearing) Eye Exam: Bilateral Eye: EOMI, Normal Inspection (no scleral icterus), PERRL Ears: Normal External Exam, Hearing Grossly Normal Nose: Normal Inspection, Normal Mucosa, No Blood Throat/Mouth: Normal Lips, Normal Oropharynx, Normal Voice, No Airway Compromise. No: Normal Teeth Head: Atraumatic, Normocephalic Neck: Normal Inspection, Supple, Non-Tender, Full Range of Motion. No: Lymphadenopathy (L), Lymphadenopathy (R) Respiratory/Chest: No Respiratory Distress, No Accessory Muscle Use, Decreased Breath Sounds, Rales, Wheezing. No: Stridor Cardiovascular: Regular Rate, Rhythm, No Edema GI/Abdominal: Normal Bowel Sounds, Soft, Non-Tender, No Distention. No: Guarding, Rigid, Rebound (Male) Exam: Deferred Rectal (Males) Exam: Deferred Back Exam: Normal Inspection, Full Range of Motion, NT Extremities: Normal Inspection, Normal Range of Motion, Non-Tender, Normal Capillary Refill, No Pedal Edema Neurological: Alert, Oriented, CN II-XII Intact, Normal Cognition, Normal Gait, No Motor/Sensory Deficits Psychiatric: Normal Affect, Anxious Skin Exam: Warm, Intact, Normal Color, No Rash, Diaphoretic EKG INTERPRETATION EKG Date: 09/11/17 Time: 07:43 Rhythm: Other (SR) Rate (Beats/Min): 96 [place]: Normal P-Wave: Present (with probable left atrial abnormality) QRS: Wide (non-specific IVCD, LVH) ST-T: Other (non-specific ant-lat. ST-T wave changes, chronic) Comparison: No Change Course - Vital Signs Last Recorded V/S: Last Vital Signs Temp 36.9 C 09/11/17 07:30 Pulse 94 09/11/17 07:38 Resp 18 09/11/17 07:30 BP 108/75 09/11/17 07:30 Pulse Ox 100 09/11/17 07:30 - Orders/Labs/Meds Orders: Active Orders 24 hr Category Date Time Status Blood Glucose Check, Bedside [] ONETIME Care 09/11/17 07:39 Active EKG 12 Lead [EKG Documentation Completion] [] STAT Care 09/11/17 07:39 Active Peripheral IV Care [] . DIRECTED Care 09/11/17 07:39 Active RT Aerosol Therapy [] ASDIRECTED Care 09/11/17 07:38 Active CULTURE BLOOD [] Stat Lab 09/11/17 07:46 Received CULTURE BLOOD [] Stat Lab 09/11/17 07:53 Received DRUG SCREEN URINE BIORAD [URCHEM] Stat Lab 09/11/17 07:50 Ordered UA W/MICROSCOPIC [URIN] Stat Lab 09/11/17 07:50 Ordered Sodium Chloride 0.9% [Saline Flush] Med 09/11/17 07:39 Active 10 ml FLUSH ASDIRECTED PRN Blood Culture x2 Reflex Set [OM.PC] Stat Oth 09/11/17 07:39 Ordered Peripheral IV Insertion Adult [OM.PC] Stat Oth 09/11/17 07:39 Ordered Medication Orders Sodium Chloride (Saline Flush) 10 ml FLUSH ASDIRECTED PRN PRN Reason: Keep Vein Open Last Admin: 09/11/17 08:11 Dose: 10 ml Labs: Laboratory Tests 09/11/17 09/11/17 09/11/17 Range/Units 07:46 07:50 07:50 WBC (5.0-10.0) 10^3/uL RBC (4.6-6.2) 10^6/uL Hgb (14.0-18.0) g/dL Hct (40.0-54.0) % MCV (80-100) fL MCH (27.0-34.0) pg MCHC (33.0-35.0) g/dL Plt Count (150-450) 10^3/uL Neut % (Auto) (42.2-75.2) % Lymph % (Auto) (20.5-50.1) % [place] % (Auto) (2-8) % Eos % (Auto) (1.0-3.0) % Baso % (Auto) (0.0-1.0) % Sodium (135-145) mmol/L Potassium (3.6-5.0) mmol/L Chloride (101-111) mmol/L Carbon Dioxide (21.0-31.0) mmol/L Anion Gap BUN (7-18) mg/dL Creatinine (0.6-1.3) mg/dL Est Cr Clr Drug Dosing mL/min Estimated GFR (MDRD) BUN/Creatinine Ratio Glucose POC Glucose (70-105) mg/dl Lactic Acid 1.1 (0.5-2.2) mmol/L Calcium (8.4-10.2) mg/dl Total Bilirubin (0.2-1.0) mg/dL AST (10-42) IU/L ALT (10-60) IU/L Alkaline Phosphatase (42-121) IU/L Creatine Kinase (26-174) IU/L Creatine Kinase Index (0-2.4) % CK-MB (CK-2) (0.4-4.7) ng/mL Troponin I (0.00-0.02) ng/ml B-Natriuretic Peptide (0-100) pg/ml Total Protein (6.7-8.2) g/dl Albumin (3.2-5.5) g/dl Globulin Albumin/Globulin Ratio Urine Color Su[place] (YELLOW) Urine Appearance Clear (CLEAR) Urine pH 6.0 (5.0-9.0) Ur Specific [place] 1.025 (1.005-1.030) Urine Protein 100 H (NEGATIVE) Urine Glucose (UA) Negative (NEGATIVE) Urine Ketones Trace H (NEGATIVE) Urine Occult Blood Small H (NEGATIVE) Urine Nitrite Negative (NEGATIVE) Urine Bilirubin Moderate H (NEGATIVE) Urine Urobilinogen 4.0 H (0.2-1.0) mg/dL Ur Leukocyte Esterase Negative (NEGATIVE) Urine RBC 5-10 H /HPF Urine WBC 0-5 (0-5/HPF) /HPF Ur Epithelial Cells Few /HPF Amorphous Sediment Moderate (0/HPF) /HPF Urine Bacteria Few (0-FEW/HPF) /HPF Urine Mucus Many H /LPF Digoxin (0-2.5) ng/ml Urine Opiates Screen Negative (NEGATIVE) Ur Oxycodone Screen Positive H (NEGATIVE) Urine Methadone Screen Negative (NEGATIVE) Ur Barbiturates Screen Negative (NEGATIVE) U Tricyclic Antidepress Negative (NEGATIVE) Ur Phencyclidine Scrn Negative (NEGATIVE) Ur Amphetamine Screen Negative (NEGATIVE) U Methamphetamines Scrn Positive H (NEGATIVE) Urine MDMA Screen Negative (NEGATIVE) U Benzodiazepines Scrn Negative (NEGATIVE) Urine Cocaine Screen Negative (NEGATIVE) U Marijuana (THC) Screen Negative (NEGATIVE) Ethyl Alcohol mg/dL 09/11/17 09/11/17 09/11/17 Range/Units 07:53 07:53 07:53 WBC 8.2 (5.0-10.0) 10^3/uL RBC 4.32 L (4.6-6.2) 10^6/uL Hgb 12.2 L D (14.0-18.0) g/dL Hct 37.9 L (40.0-54.0) % MCV 87.7 (80-100) fL MCH 28.2 (27.0-34.0) pg MCHC 32.2 L (33.0-35.0) g/dL Plt Count 216 (150-450) 10^3/uL Neut % (Auto) 75.1 (42.2-75.2) % Lymph % (Auto) 12.8 L (20.5-50.1) % [place] % (Auto) 8.0 (2-8) % Eos % (Auto) 3.5 H (1.0-3.0) % Baso % (Auto) 0.6 (0.0-1.0) % Sodium 141 (135-145) mmol/L Potassium 3.5 L (3.6-5.0) mmol/L Chloride 109 (101-111) mmol/L Carbon Dioxide 25.0 (21.0-31.0) mmol/L Anion Gap 10.5 BUN 10 (7-18) mg/dL Creatinine 0.6 (0.6-1.3) mg/dL Est Cr Clr Drug Dosing 147.29 mL/min Estimated GFR (MDRD) > 60 BUN/Creatinine Ratio 16.66 Glucose TNP POC Glucose (70-105) mg/dl Lactic Acid (0.5-2.2) mmol/L Calcium 8.8 (8.4-10.2) mg/dl Total Bilirubin 2.0 H (0.2-1.0) mg/dL AST 23 (10-42) IU/L ALT 11 (10-60) IU/L Alkaline Phosphatase 101 (42-121) IU/L Creatine Kinase 56 (26-174) IU/L Creatine Kinase Index 5.2 H (0-2.4) % CK-MB (CK-2) 2.90 (0.4-4.7) ng/mL Troponin I 0.03 H* (0.00-0.02) ng/ml B-Natriuretic Peptide 2730 H (0-100) pg/ml Total Protein 7.0 (6.7-8.2) g/dl Albumin 3.4 (3.2-5.5) g/dl Globulin 3.6 Albumin/Globulin Ratio 0.94 Urine Color (YELLOW) Urine Appearance (CLEAR) Urine pH (5.0-9.0) Ur Specific [place] (1.005-1.030) Urine Protein (NEGATIVE) Urine Glucose (UA) (NEGATIVE) Urine Ketones (NEGATIVE) Urine Occult Blood (NEGATIVE) Urine Nitrite (NEGATIVE) Urine Bilirubin (NEGATIVE) Urine Urobilinogen (0.2-1.0) mg/dL Ur Leukocyte Esterase (NEGATIVE) Urine RBC /HPF Urine WBC (0-5/HPF) /HPF Ur Epithelial Cells /HPF Amorphous Sediment (0/HPF) /HPF Urine Bacteria (0-FEW/HPF) /HPF Urine Mucus /LPF Digoxin (0-2.5) ng/ml Urine Opiates Screen (NEGATIVE) Ur Oxycodone Screen (NEGATIVE) Urine Methadone Screen (NEGATIVE) Ur Barbiturates Screen (NEGATIVE) U Tricyclic Antidepress (NEGATIVE) Ur Phencyclidine Scrn (NEGATIVE) Ur Amphetamine Screen (NEGATIVE) U Methamphetamines Scrn (NEGATIVE) Urine MDMA Screen (NEGATIVE) U Benzodiazepines Scrn (NEGATIVE) Urine Cocaine Screen (NEGATIVE) U Marijuana (THC) Screen (NEGATIVE) Ethyl Alcohol < 5 mg/dL 09/11/17 09/11/17 Range/Units 07:53 07:57 WBC (5.0-10.0) 10^3/uL RBC (4.6-6.2) 10^6/uL Hgb (14.0-18.0) g/dL Hct (40.0-54.0) % MCV (80-100) fL MCH (27.0-34.0) pg MCHC (33.0-35.0) g/dL Plt Count (150-450) 10^3/uL Neut % (Auto) (42.2-75.2) % Lymph % (Auto) (20.5-50.1) % [place] % (Auto) (2-8) % Eos % (Auto) (1.0-3.0) % Baso % (Auto) (0.0-1.0) % Sodium (135-145) mmol/L Potassium (3.6-5.0) mmol/L Chloride (101-111) mmol/L Carbon Dioxide (21.0-31.0) mmol/L Anion Gap BUN (7-18) mg/dL Creatinine (0.6-1.3) mg/dL Est Cr Clr Drug Dosing mL/min Estimated GFR (MDRD) BUN/Creatinine Ratio Glucose POC Glucose 111 H (70-105) mg/dl Lactic Acid (0.5-2.2) mmol/L Calcium (8.4-10.2) mg/dl Total Bilirubin (0.2-1.0) mg/dL AST (10-42) IU/L ALT (10-60) IU/L Alkaline Phosphatase (42-121) IU/L Creatine Kinase (26-174) IU/L Creatine Kinase Index (0-2.4) % CK-MB (CK-2) (0.4-4.7) ng/mL Troponin I (0.00-0.02) ng/ml B-Natriuretic Peptide (0-100) pg/ml Total Protein (6.7-8.2) g/dl Albumin (3.2-5.5) g/dl Globulin Albumin/Globulin Ratio Urine Color (YELLOW) Urine Appearance (CLEAR) Urine pH (5.0-9.0) Ur Specific [place] (1.005-1.030) Urine Protein (NEGATIVE) Urine Glucose (UA) (NEGATIVE) Urine Ketones (NEGATIVE) Urine Occult Blood (NEGATIVE) Urine Nitrite (NEGATIVE) Urine Bilirubin (NEGATIVE) Urine Urobilinogen (0.2-1.0) mg/dL Ur Leukocyte Esterase (NEGATIVE) Urine RBC /HPF Urine WBC (0-5/HPF) /HPF Ur Epithelial Cells /HPF Amorphous Sediment (0/HPF) /HPF Urine Bacteria (0-FEW/HPF) /HPF Urine Mucus /LPF Digoxin 0.4 (0-2.5) ng/ml Urine Opiates Screen (NEGATIVE) Ur Oxycodone Screen (NEGATIVE) Urine Methadone Screen (NEGATIVE) Ur Barbiturates Screen (NEGATIVE) U Tricyclic Antidepress (NEGATIVE) Ur Phencyclidine Scrn (NEGATIVE) Ur Amphetamine Screen (NEGATIVE) U Methamphetamines Scrn (NEGATIVE) Urine MDMA Screen (NEGATIVE) U Benzodiazepines Scrn (NEGATIVE) Urine Cocaine Screen (NEGATIVE) U Marijuana (THC) Screen (NEGATIVE) Ethyl Alcohol mg/dL Meds: Medications Generic Name Dose Route Start Last Admin Trade Name Freq PRN Reason Stop Dose Admin Sodium Chloride 10 ml 09/11/17 07:39 09/11/17 08:11 Saline Flush FLUSH 10 ml ASDIRECTED PRN Administration Keep Vein Open Discontinued Medications Generic Name Dose Route Start Last Admin Trade Name Freq PRN Reason Stop Dose Admin Albuterol/Ipratropium 3 ml 09/11/17 07:37 09/11/17 07:44 Duoneb 3.0-0.5 Mg/3 Ml NEB 09/11/17 07:38 3 ml ONETIME ONE Administration Aspirin 324 mg 09/11/17 07:37 09/11/17 08:09 Aspirin PO 09/11/17 07:38 324 mg ONETIME ONE Administration Furosemide 40 mg 09/11/17 10:13 Lasix IVPUSH 09/11/17 10:14 NOW ONE Lorazepam 1 mg 09/11/17 07:37 09/11/17 08:09 Ativan PO 09/11/17 07:38 1 mg ONETIME ONE Administration Lorazepam 1 mg 09/11/17 10:13 Ativan IVPUSH 09/11/17 10:14 ONETIME ONE Methylprednisolone Sodium Succinate 125 mg 09/11/17 07:38 09/11/17 08:11 Solu-Medrol IVPUSH 09/11/17 07:39 125 mg ONETIME ONE Administration - Radiology Interpretation Free Text/Narrative:: CXR: mild chronic CHF, see Rad. report. Departure - Departure Time of Disposition: 10:21 (admitted to Dr. De La Cruz) Disposition: Refer to Observation Condition: Fair Clinical Impression: Acute exacerbation of chronic obstructive pulmonary disease (COPD), Methamphetamine abuse Alcohol withdrawal Qualifiers: Complication of substance-induced condition: uncomplicated Qualified Code(s): F10.230 - Alcohol dependence with withdrawal, uncomplicated Acute exacerbation of CHF (congestive heart failure) Qualifiers: Heart failure type: unspecified Qualified Code(s): I50.9 - Heart failure, unspecified - Discharge Information Forms: ED Department Discharge - My Orders Last 24 Hours: My Active Orders 09/11/17 07:38 RT Aerosol Therapy [RC] ASDIRECTED 09/11/17 07:39 Blood Glucose Check, Bedside [RC] ONETIME EKG 12 Lead [EKG Documentation Completion] [RC] STAT Peripheral IV Care [RC] . DIRECTED Sodium Chloride 0.9% [Saline Flush] 10 ml FLUSH ASDIRECTED PRN Blood Culture x2 Reflex Set [OM.PC] Stat Peripheral IV Insertion Adult [OM.PC] Stat 09/11/17 07:46 CULTURE BLOOD [BC] Stat 09/11/17 07:50 DRUG SCREEN URINE BIORAD [URCHEM] Stat UA W/MICROSCOPIC [URIN] Stat 09/11/17 07:53 CULTURE BLOOD [BC] Stat - Assessment/Plan Last 24 Hours: My Active Orders 09/11/17 07:38 RT Aerosol Therapy [RC] ASDIRECTED 09/11/17 07:39 Blood Glucose Check, Bedside [RC] ONETIME EKG 12 Lead [EKG Documentation Completion] [RC] STAT Peripheral IV Care [RC] . DIRECTED Sodium Chloride 0.9% [Saline Flush] 10 ml FLUSH ASDIRECTED PRN Blood Culture x2 Reflex Set [OM.PC] Stat Peripheral IV Insertion Adult [OM.PC] Stat 09/11/17 07:46 CULTURE BLOOD [BC] Stat 09/11/17 07:50 DRUG SCREEN URINE BIORAD [URCHEM] Stat UA W/MICROSCOPIC [URIN] Stat 09/11/17 07:53 CULTURE BLOOD [BC] Stat
[2017-09-11] MEDS ORDERED: Aspirin 81 MG Tab.Chew PO ONE (07:37)
[2017-09-11] MEDS ORDERED: Albuterol/Ipratropium 3.0-0.5 MG/3 ML Neb Soln NEB ONE (07:37)
[2017-09-11] MEDS ORDERED: LORazepam 1 MG Tab PO ONE (07:37)
[2017-09-11] MEDS ORDERED: methylPREDNISolone Sodium Succinate 125 MG/2 ML SDV IVPUSH ONE (07:38)
[2017-09-11] MEDS: Sodium Chloride 0.9% 10 ML Syringe FLUSH PRN ×2 (08:11→18:20)
[2017-09-11 08:23] LABS: ANION GAP 10.5; CHLORIDE,CL 109 mmol/L (101-111); SODIUM,NA 141 mmol/L (135-145)
--- NOTE | 2017-09-11 09:00 | CR ---
Clinical history: 52-year-old male with clinical wheezing, cough, orthopnea and chest "pressure". Interpretation: Upright PA/lateral chest films abnormal and although relatively unchanged since 20 August 2017 exam the re appears to be... increase prominence of cardiac silhouette and relative increase venous congestion when compared to CT exam 16 August 2017.... i.e. chronic mild cardiovascular decompensation this patient with pacemaker and external cardiac reynold tor leads (pacer leads appear intact and unchanged in position). No new alveolar edema or dependent pleural fluid accumulation (no effusions). No new lung mass, focal lobar pneumonia or atelectasis/collapse. No pneumothorax. Aditya thorax unremarkable. CONCLUSION: Chronic mild CHF. No lobar pneumonia.
[2017-09-11] MEDS ORDERED: LORazepam 2 MG/ML Syringe IVPUSH ONE (10:13)
[2017-09-11] MEDS ORDERED: Furosemide 40 MG/4 ML VIAL IVPUSH ONE (10:13)
--- NOTE | 2017-09-11 13:58 | PCM.HP ---
H&P History of Present Illness - General Date of Service: 09/11/17 Admit Problem/Dx: Admission Diagnosis/Problem Admission Diagnosis/Problem CHF, Congestive heart failure Source of Information: Patient History Limitations: Reports: No Limitations - History of Present Illness Initial Comments - Free Text/Narative: 52 yo M with PMH of CHF (EF 25% NICM, s/p ICD), HTN, HLD, chronic substance abuse, alcoholism, cigarette smoking who presents to the ED with shortness of breath. Shortness of breath occurs with mild exertion. Also has orthopnea. No chest pain, no palpitations, no leg swelling, no abdominal pain. A review of his chart shows that he has had multiple admissions for chest pain and SOB in the last few months. SH: admits to methamphetamine, and cigarette smoking. Anterior Chest Pain Score (Numeric/FACES): 7 right and left shoulders Pain Score (Numeric/FACES): 8 - Related Data Allergies/Adverse Reactions: Allergies Allergy/AdvReac Type Severity Reaction Status Date / Time No Known Allergies Allergy Verified 09/11/17 11:52 Home Medications: Home Meds Carvedilol [Coreg] 3.125 mg PO BIDMEALS 10/18/15 [History] Lisinopril 2.5 mg PO DAILY #30 04/20/17 [Rx] Potassium Chloride [Klor-Con 10] 20 meq PO DAILY #30 tab.er 04/20/17 [Rx] Sertraline [Zoloft] 50 mg PO DAILY 30 Days #30 tablet 04/20/17 [Rx] Spironolactone [Aldactone] 25 mg PO DAILY 30 Days #30 tablet 04/20/17 [Rx] ALPRAZolam [Xanax] 0.25 mg PO DAILY 07/31/17 [History] Digoxin 0.25 mg PO DAILY 07/31/17 [History] Fluticasone/Salmeterol [Advair 250-50 Diskus] 1 puff INH DAILY 07/31/17 [History ] Melatonin 3 mg PO BEDTIME 07/31/17 [History] Pantoprazole Sodium [Protonix] 40 mg PO DAILY 07/31/17 [History] oxyCODONE HCl/Acetaminophen [Oxycodone-Acetaminophen 5-325] 1 tab PO Q6H PRN [History] Furosemide [Lasix] 80 mg PO BID 08/20/17 [History] Past Medical History - Past Health History Medical/Surgical History: Denies Medical/Surgical History HEENT History: Reports: None Cardiovascular History: Reports: Blood Clots/VTE/DVT, Cardiomyopathy, Heart Failure, Hypertension, Pacemaker, SOB on Exertion Respiratory History: Reports: SOB Gastrointestinal History: Reports: Gastritis, GERD Genitourinary History: Reports: Other (See Below) Other Genitourinary History: liver issues r/t ETOH Musculoskeletal History: Reports: Arthritis, Other (See Below) Other Musculoskeletal History: torn left and right upper arm tendon. missed surgery 03/2017 Neurological History: Reports: None Psychiatric History: Reports: Addiction, Anxiety, Depression, Panic Attack Other Psychiatric History: Pt states that he has been in treatment for alcoholism many times, last times 10 years ago, and he quit drinking for 8 years Endocrine/Metabolic History: Reports: None Hematologic History: Reports: None Immunologic History: Reports: None Oncologic (Cancer) History: Reports: None Dermatologic History: Reports: None - Infectious Disease History Infectious Disease History: Reports: None - Past Surgical History Head Surgeries/Procedures: Reports: None Cardiovascular Surgical History: Reports: AICD, Percutaneous Transluminal Angioplasty Respiratory Surgical History: Reports: None GI Surgical History: Reports: None Male Surgical History: Reports: None Neurological Surgical History: Reports: None Musculoskeletal Surgical History: Reports: None Social & Family History - Family History Family Medical History: Noncontributory Cardiac: Reports: Hypertension Other Cardiac Family History: Dad and paternal grandmother have hypertension. Respiratory: Reports: Asthma Other Respiratory Family Hisory: Mom and dad have asthma. Endocrine/Metabolic: Reports: Diabetes, Type I Other Endocrine/Metabolic Family History: Dad and paternal grandmother have type I diabetes. - Tobacco Use Smoking Status *Q: Current Every Day Smoker Years of Tobacco use: 40 Packs/Tins Daily: 0.5 Used Tobacco, but Quit: No Second Hand Smoke Exposure: Yes - Caffeine Use Caffeine Use: Reports: Coffee, Soda - Alcohol Use Days Per Week of Alcohol Use: 2 Number of Drinks Per Day: 6 Total Drinks Per Week: 12 Date of Last Drink: 09/09/17 - Recreational Drug Use Recreational Drug Use: Yes Drug Use in Last 12 Months: Yes Recreational Drug Type: Reports: Marijuana/Hashish, Methamphetamine Recreational Drug Use Frequency: Binges - Living Situation & Occupation Living situation: Reports: with Family H&P Review of Systems - Review of Systems: Review Of Systems: ROS reveals no pertinent complaints other than HPI. Exam - Exam Exam: See Below - Vital Signs Vital Signs: Last Vital Signs Temp 37.1 C 09/11/17 12:25 Pulse 94 09/11/17 12:25 Resp 28 H 09/11/17 12:25 BP 116/78 09/11/17 12:25 Pulse Ox 99 09/11/17 12:55 Weight: 76.204 kg - Exam General: Alert, Oriented HEENT: Conjunctiva Clear Neck: Supple Lungs: Crackles, Other (bibasal crackles) Cardiovascular: Regular Rate, Regular Rhythm GI/Abdominal Exam: Normal Bowel Sounds, Soft, Non-Tender - Patient Data Lab Results Last 24 hrs: Laboratory Results - last 24 hr 09/11/17 09/11/17 09/11/17 Range/Units 07:46 07:50 07:50 WBC (5.0-10.0) 10^3/uL RBC (4.6-6.2) 10^6/uL Hgb (14.0-18.0) g/dL Hct (40.0-54.0) % MCV (80-100) fL MCH (27.0-34.0) pg MCHC (33.0-35.0) g/dL Plt Count (150-450) 10^3/uL Neut % (Auto) (42.2-75.2) % Lymph % (Auto) (20.5-50.1) % [place] % (Auto) (2-8) % Eos % (Auto) (1.0-3.0) % Baso % (Auto) (0.0-1.0) % Sodium (135-145) mmol/L Potassium (3.6-5.0) mmol/L Chloride (101-111) mmol/L Carbon Dioxide (21.0-31.0) mmol/L Anion Gap BUN (7-18) mg/dL Creatinine (0.6-1.3) mg/dL Est Cr Clr Drug Dosing mL/min Estimated GFR (MDRD) BUN/Creatinine Ratio Glucose POC Glucose (70-105) mg/dl Lactic Acid 1.1 (0.5-2.2) mmol/L Calcium (8.4-10.2) mg/dl Total Bilirubin (0.2-1.0) mg/dL AST (10-42) IU/L ALT (10-60) IU/L Alkaline Phosphatase (42-121) IU/L Creatine Kinase (26-174) IU/L Creatine Kinase Index (0-2.4) % CK-MB (CK-2) (0.4-4.7) ng/mL Troponin I (0.00-0.02) ng/ml B-Natriuretic Peptide (0-100) pg/ml Total Protein (6.7-8.2) g/dl Albumin (3.2-5.5) g/dl Globulin Albumin/Globulin Ratio Urine Color [place] (YELLOW) Urine Appearance Clear (CLEAR) Urine pH 6.0 (5.0-9.0) Ur Specific [place] 1.025 (1.005-1.030) Urine Protein 100 H (NEGATIVE) Urine Glucose (UA) Negative (NEGATIVE) Urine Ketones Trace H (NEGATIVE) Urine Occult Blood Small H (NEGATIVE) Urine Nitrite Negative (NEGATIVE) Urine Bilirubin Moderate H (NEGATIVE) Urine Urobilinogen 4.0 H (0.2-1.0) mg/dL Ur Leukocyte Esterase Negative (NEGATIVE) Urine RBC 5-10 H /HPF Urine WBC 0-5 (0-5/HPF) /HPF Ur Epithelial Cells Few /HPF Amorphous Sediment Moderate (0/HPF) /HPF Urine Bacteria Few (0-FEW/HPF) /HPF Urine Mucus Many H /LPF Digoxin (0-2.5) ng/ml Urine Opiates Screen Negative (NEGATIVE) Ur Oxycodone Screen Positive H (NEGATIVE) Urine Methadone Screen Negative (NEGATIVE) Ur Barbiturates Screen Negative (NEGATIVE) U Tricyclic Antidepress Negative (NEGATIVE) Ur Phencyclidine Scrn Negative (NEGATIVE) Ur Amphetamine Screen Negative (NEGATIVE) U Methamphetamines Scrn Positive H (NEGATIVE) Urine MDMA Screen Negative (NEGATIVE) U Benzodiazepines Scrn Negative (NEGATIVE) Urine Cocaine Screen Negative (NEGATIVE) U Marijuana (THC) Screen Negative (NEGATIVE) Ethyl Alcohol mg/dL 09/11/17 09/11/17 09/11/17 Range/Units 07:53 07:53 07:53 WBC 8.2 (5.0-10.0) 10^3/uL RBC 4.32 L (4.6-6.2) 10^6/uL Hgb 12.2 L D (14.0-18.0) g/dL Hct 37.9 L (40.0-54.0) % MCV 87.7 (80-100) fL MCH 28.2 (27.0-34.0) pg MCHC 32.2 L (33.0-35.0) g/dL Plt Count 216 (150-450) 10^3/uL Neut % (Auto) 75.1 (42.2-75.2) % Lymph % (Auto) 12.8 L (20.5-50.1) % [place] % (Auto) 8.0 (2-8) % Eos % (Auto) 3.5 H (1.0-3.0) % Baso % (Auto) 0.6 (0.0-1.0) % Sodium 141 (135-145) mmol/L Potassium 3.5 L (3.6-5.0) mmol/L Chloride 109 (101-111) mmol/L Carbon Dioxide 25.0 (21.0-31.0) mmol/L Anion Gap 10.5 BUN 10 (7-18) mg/dL Creatinine 0.6 (0.6-1.3) mg/dL Est Cr Clr Drug Dosing 147.29 mL/min Estimated GFR (MDRD) > 60 BUN/Creatinine Ratio 16.66 Glucose TNP POC Glucose (70-105) mg/dl Lactic Acid (0.5-2.2) mmol/L Calcium 8.8 (8.4-10.2) mg/dl Total Bilirubin 2.0 H (0.2-1.0) mg/dL AST 23 (10-42) IU/L ALT 11 (10-60) IU/L Alkaline Phosphatase 101 (42-121) IU/L Creatine Kinase 56 (26-174) IU/L Creatine Kinase Index 5.2 H (0-2.4) % CK-MB (CK-2) 2.90 (0.4-4.7) ng/mL Troponin I 0.03 H* (0.00-0.02) ng/ml B-Natriuretic Peptide 2730 H (0-100) pg/ml Total Protein 7.0 (6.7-8.2) g/dl Albumin 3.4 (3.2-5.5) g/dl Globulin 3.6 Albumin/Globulin Ratio 0.94 Urine Color (YELLOW) Urine Appearance (CLEAR) Urine pH (5.0-9.0) Ur Specific [place] (1.005-1.030) Urine Protein (NEGATIVE) Urine Glucose (UA) (NEGATIVE) Urine Ketones (NEGATIVE) Urine Occult Blood (NEGATIVE) Urine Nitrite (NEGATIVE) Urine Bilirubin (NEGATIVE) Urine Urobilinogen (0.2-1.0) mg/dL Ur Leukocyte Esterase (NEGATIVE) Urine RBC /HPF Urine WBC (0-5/HPF) /HPF Ur Epithelial Cells /HPF Amorphous Sediment (0/HPF) /HPF Urine Bacteria (0-FEW/HPF) /HPF Urine Mucus /LPF Digoxin (0-2.5) ng/ml Urine Opiates Screen (NEGATIVE) Ur Oxycodone Screen (NEGATIVE) Urine Methadone Screen (NEGATIVE) Ur Barbiturates Screen (NEGATIVE) U Tricyclic Antidepress (NEGATIVE) Ur Phencyclidine Scrn (NEGATIVE) Ur Amphetamine Screen (NEGATIVE) U Methamphetamines Scrn (NEGATIVE) Urine MDMA Screen (NEGATIVE) U Benzodiazepines Scrn (NEGATIVE) Urine Cocaine Screen (NEGATIVE) U Marijuana (THC) Screen (NEGATIVE) Ethyl Alcohol < 5 mg/dL 09/11/17 09/11/17 Range/Units 07:53 07:57 WBC (5.0-10.0) 10^3/uL RBC (4.6-6.2) 10^6/uL Hgb (14.0-18.0) g/dL Hct (40.0-54.0) % MCV (80-100) fL MCH (27.0-34.0) pg MCHC (33.0-35.0) g/dL Plt Count (150-450) 10^3/uL Neut % (Auto) (42.2-75.2) % Lymph % (Auto) (20.5-50.1) % [place] % (Auto) (2-8) % Eos % (Auto) (1.0-3.0) % Baso % (Auto) (0.0-1.0) % Sodium (135-145) mmol/L Potassium (3.6-5.0) mmol/L Chloride (101-111) mmol/L Carbon Dioxide (21.0-31.0) mmol/L Anion Gap BUN (7-18) mg/dL Creatinine (0.6-1.3) mg/dL Est Cr Clr Drug Dosing mL/min Estimated GFR (MDRD) BUN/Creatinine Ratio Glucose POC Glucose 111 H (70-105) mg/dl Lactic Acid (0.5-2.2) mmol/L Calcium (8.4-10.2) mg/dl Total Bilirubin (0.2-1.0) mg/dL AST (10-42) IU/L ALT (10-60) IU/L Alkaline Phosphatase (42-121) IU/L Creatine Kinase (26-174) IU/L Creatine Kinase Index (0-2.4) % CK-MB (CK-2) (0.4-4.7) ng/mL Troponin I (0.00-0.02) ng/ml B-Natriuretic Peptide (0-100) pg/ml Total Protein (6.7-8.2) g/dl Albumin (3.2-5.5) g/dl Globulin Albumin/Globulin Ratio Urine Color (YELLOW) Urine Appearance (CLEAR) Urine pH (5.0-9.0) Ur Specific [place] (1.005-1.030) Urine Protein (NEGATIVE) Urine Glucose (UA) (NEGATIVE) Urine Ketones (NEGATIVE) Urine Occult Blood (NEGATIVE) Urine Nitrite (NEGATIVE) Urine Bilirubin (NEGATIVE) Urine Urobilinogen (0.2-1.0) mg/dL Ur Leukocyte Esterase (NEGATIVE) Urine RBC /HPF Urine WBC (0-5/HPF) /HPF Ur Epithelial Cells /HPF Amorphous Sediment (0/HPF) /HPF Urine Bacteria (0-FEW/HPF) /HPF Urine Mucus /LPF Digoxin 0.4 (0-2.5) ng/ml Urine Opiates Screen (NEGATIVE) Ur Oxycodone Screen (NEGATIVE) Urine Methadone Screen (NEGATIVE) Ur Barbiturates Screen (NEGATIVE) U Tricyclic Antidepress (NEGATIVE) Ur Phencyclidine Scrn (NEGATIVE) Ur Amphetamine Screen (NEGATIVE) U Methamphetamines Scrn (NEGATIVE) Urine MDMA Screen (NEGATIVE) U Benzodiazepines Scrn (NEGATIVE) Urine Cocaine Screen (NEGATIVE) U Marijuana (THC) Screen (NEGATIVE) Ethyl Alcohol mg/dL Result Diagrams: 09/11/17 07:53 09/11/17 07:53 Problem List Initiated/Reviewed/Updated: Yes Orders Last 24hrs: Active Orders 24 hr Category Date Time Status Admission Status [Patient Status] [ADT] Routine ADT 09/11/17 11:36 Active Patient Status [ADT] Routine ADT 09/11/17 12:55 Ordered Ambulate [RC] ASDIRECTED Care 09/11/17 13:05 Ordered Bedrest Bathroom Privileges [RC] ASDIRECTED Care 09/11/17 13:05 Ordered Blood Glucose Check, Bedside [RC] ONETIME Care 09/11/17 07:39 Active Height and Weight [RC] DAILY Care 09/11/17 13:05 Ordered Intake and Output [RC] QSHIFT Care 09/11/17 13:06 Ordered May Shower [RC] ASDIRECTED Care 09/11/17 13:05 Ordered Oxygen Therapy [RC] PRN Care 09/11/17 12:55 Ordered RT Aerosol Therapy [RC] ASDIRECTED Care 09/11/17 07:38 Active Up ad Yudelka [RC] ASDIRECTED Care 09/11/17 13:05 Ordered Up to Chair [RC] ASDIRECTED Care 09/11/17 13:05 Ordered VTE/DVT Education [RC] PER UNIT ROUTINE Care 09/11/17 12:55 Ordered Vital Signs [RC] Q4H Care 09/11/17 12:55 Ordered 2 Gram Sodium Diet [DIET] Diet 09/11/17 Dinner Ordered Heart Healthy Diet [DIET] Diet 09/11/17 Lunch Active BASIC METABOLIC PANEL,BMP [CHEM] AM Lab 09/12/17 05:11 Ordered CBC WITH AUTO DIFF [HEME] AM Lab 09/12/17 05:11 Ordered CULTURE BLOOD [BC] Stat Lab 09/11/17 07:46 Received CULTURE BLOOD [BC] Stat Lab 09/11/17 07:53 Received DRUG SCREEN URINE BIORAD [URCHEM] Stat Lab 09/11/17 07:50 Ordered MAGNESIUM [CHEM] AM Lab 09/12/17 05:11 Ordered UA W/MICROSCOPIC [URIN] Stat Lab 09/11/17 07:50 Ordered ALPRAZolam [Xanax] Med 09/12/17 09:00 Ordered 0.25 mg PO DAILY Acetaminophen [Tylenol] Med 09/11/17 11:49 Active 650 mg PO Q6H PRN Carvedilol [Coreg] Med 09/11/17 18:00 Ordered 3.125 mg PO BIDMEALS Digoxin [Lanoxin] Med 09/12/17 09:00 Ordered 250 mcg PO DAILY Fluticasone/Salmeterol [Advair 250-50 Diskus] Med 09/12/17 09:00 Ordered 1 puff INH DAILY Furosemide [Lasix] Med 09/11/17 21:00 Ordered 40 mg IVPUSH Q12H Heparin Sodium Med 09/11/17 14:00 Ordered 5,000 units SUBCUT Q8HR Lisinopril [Lisinopril] Med 09/12/17 09:00 Ordered 2.5 mg PO DAILY Melatonin [Melatonin] Med 09/11/17 21:00 Ordered 3 mg PO BEDTIME Nicotine [Habitrol] Med 09/11/17 13:15 Ordered 14 mg TRDERM DAILY Pantoprazole [ProTONIX] Med 09/12/17 09:00 Ordered 40 mg PO DAILY Sertraline [Zoloft] Med 09/12/17 09:00 Ordered 50 mg PO DAILY Sodium Chloride 0.9% [Saline Flush] Med 09/11/17 07:39 Active 10 ml FLUSH ASDIRECTED PRN Spironolactone [Aldactone] Med 09/12/17 09:00 Ordered 25 mg PO DAILY Blood Culture x2 Reflex Set [OM.PC] Stat Ot 09/11/17 07:39 Ordered Peripheral IV Insertion Adult [OM.PC] Stat Oth 09/11/17 07:39 Ordered Resuscitation Status Routine Resus Stat 09/11/17 12:55 Ordered Medication Orders Acetaminophen (Tylenol) 650 mg PO Q6H PRN PRN Reason: Pain Alprazolam (Xanax) 0.25 mg PO DAILY [facility] Carvedilol (Coreg) 3.125 mg PO BIDMEALS [facility] Digoxin (Lanoxin) 250 mcg PO DAILY [facility] Furosemide (Lasix) 40 mg IVPUSH Q12H [facility] Heparin Sodium (Porcine) (Heparin Sodium) 5,000 units SUBCUT Q8HR [facility] Nicotine (Habitrol) 14 mg TRDERM DAILY [facility] Non-Formulary Medication (Fluticasone/Salmeterol [Advair 250-50 Diskus]) 1 puff INH DAILY [facility] Non-Formulary Medication (Lisinopril [Lisinopril]) 2.5 mg PO DAILY [facility] Non-Formulary Medication (Melatonin [Melatonin]) 3 mg PO BEDTIME [facility] Pantoprazole Sodium (Protonix) 40 mg PO DAILY [facility] Sertraline HCl (Zoloft) 50 mg PO DAILY [facility] Sodium Chloride (Saline Flush) 10 ml FLUSH ASDIRECTED PRN PRN Reason: Keep Vein Open Last Admin: 09/11/17 08:11 Dose: 10 ml Spironolactone (Aldactone) 25 mg PO DAILY [facility] Assessment/Plan Comment:: # CHF exacerbation # Acute on chronic systolic heart failure IV lasix, 40 mg Q12 hrs fluid restriction to 1.5L per day sodium restriction to 2g per day Continue coreg, lisinopril, lasix, spironolactone home doses # Substance abuse disorder UDS positive for methamphetamines counseled to seek rehab for drug use # Chronic alcohol intake monitor CIWAs no features of wwithdrawal at present time # DVT ppx SC heparin
[2017-09-11] MEDS ORDERED: ALPRAZolam 0.25 MG Tab PO ONE (14:17)
[2017-09-11] MEDS: Acetaminophen 325 MG Tab PO PRN (14:19)
[2017-09-11] MEDS: Nicotine 14 MG/24 Hr Patch TRDERM SCH (14:19)
[2017-09-11] MEDS: Heparin Sodium 5,000 Units/ML Vial SUBCUT SCH ×2 (14:20→22:28)
[2017-09-11] MEDS: Carvedilol 3.125 MG Tab PO SCH (17:45)
[2017-09-11] MEDS: LORazepam 2 MG/ML Syringe IVPUSH PRN (18:19)
[2017-09-11] MEDS: Furosemide 40 MG/4 ML VIAL IVPUSH SCH (20:29)
[2017-09-11] MEDS ORDERED: Non-Formulary Medication 1 Each (Melatonin [Melatonin] 3 MG) PO SCH (21:00)
[2017-09-11] MEDS ORDERED: Furosemide 40 MG Tab PO SCH (21:00)
[2017-09-12] MEDS: LORazepam 2 MG/ML Syringe IVPUSH PRN ×5 (04:15→22:52)
[2017-09-12] MEDS: Heparin Sodium 5,000 Units/ML Vial SUBCUT SCH ×3 (06:16→21:06)
[2017-09-12] MEDS: Pantoprazole 40 MG Tab.CR PO SCH (06:16)
[2017-09-12 06:50] LABS: ANION GAP 12.5; CHLORIDE,CL 109 mmol/L (101-111); SODIUM,NA 141 mmol/L (135-145)
[2017-09-12] MEDS: Sertraline 50 MG Tab PO SCH (08:24)
[2017-09-12] MEDS: Digoxin 250 MCG Tab PO SCH (08:24)
[2017-09-12] MEDS: Carvedilol 3.125 MG Tab PO SCH ×2 (08:25→17:33)
[2017-09-12] MEDS: Lisinopril 5 MG Tab PO SCH (08:26)
[2017-09-12] MEDS: Spironolactone 25 MG Tab PO SCH (08:27)
[2017-09-12] MEDS: ALPRAZolam 0.25 MG Tab PO SCH (08:27)
[2017-09-12] MEDS: Furosemide 40 MG/4 ML VIAL IVPUSH SCH ×2 (08:28→21:05)
[2017-09-12] MEDS: Sodium Chloride 0.9% 10 ML Syringe FLUSH PRN (08:31)
[2017-09-12] MEDS ORDERED: Potassium Chloride 10 MEQ Tab.ER PO ONE (09:12)
[2017-09-12] MEDS: Nicotine 14 MG/24 Hr Patch TRDERM SCH (09:30)
--- NOTE | 2017-09-12 09:54 | PCM.PN ---
- General Info Date of Service: 09/12/17 Admission Dx/Problem (Free Text): Admission Diagnosis/Problem Admission Diagnosis/Problem CHF, Congestive heart failure Subjective Update: SOB and cough feels the same this morning. Has sharp shoulder pain. CIWA is 13 this morning. - Review of Systems General: Reports: No Symptoms HEENT: Reports: No Symptoms Pulmonary: Reports: Shortness of Breath, Cough Cardiovascular: Reports: No Symptoms Gastrointestinal: Reports: No Symptoms Genitourinary: Reports: No Symptoms Musculoskeletal: Reports: Other (shoulder pain, bilateral ) - Patient Data Vitals - Most Recent: Last Vital Signs Temp 37.1 C 09/12/17 07:51 Pulse 95 09/12/17 08:25 Resp 20 09/12/17 07:51 BP 100/73 09/12/17 08:26 Pulse Ox 98 09/12/17 07:51 Weight - Most Recent: 76.657 kg I&O - Last 24 Hours: Intake & Output 09/11/17 09/12/17 09/12/17 22:59 06:59 14:59 Intake Total 340 880 Output Total 1225 600 Balance -885 280 Lab Results Last 24 Hours: Laboratory Results - last 24 hr 09/12/17 09/12/17 Range/Units 06:20 06:20 WBC 11.6 H (5.0-10.0) 10^3/uL RBC 4.47 L (4.6-6.2) 10^6/uL Hgb 12.3 L (14.0-18.0) g/dL Hct 38.7 L (40.0-54.0) % MCV 86.6 (80-100) fL MCH 27.5 (27.0-34.0) pg MCHC 31.8 L (33.0-35.0) g/dL Plt Count 250 (150-450) 10^3/uL Neut % (Auto) 84.0 H (42.2-75.2) % Lymph % (Auto) 7.8 L (20.5-50.1) % [place] % (Auto) 8.0 (2-8) % Eos % (Auto) 0.0 L (1.0-3.0) % Baso % (Auto) 0.2 (0.0-1.0) % Sodium 141 (135-145) mmol/L Potassium 3.5 L (3.6-5.0) mmol/L Chloride 109 (101-111) mmol/L Carbon Dioxide 23.0 (21.0-31.0) mmol/L Anion Gap 12.5 BUN 17 (7-18) mg/dL Creatinine 0.7 (0.6-1.3) mg/dL Est Cr Clr Drug Dosing 89.29 mL/min Estimated GFR (MDRD) > 60 Glucose 148 H (74-105) mg/dL Calcium 9.1 (8.4-10.2) mg/dl Magnesium 1.8 (1.8-2.5) mg/dL Srikanth Results Last 24 Hours: Microbiology 09/11/17 07:46 Aerobic Blood Culture - Preliminary Blood - Venous NO GROWTH AFTER 1 DAY Anaerobic Blood Culture - Preliminary NO GROWTH AFTER 1 DAY 09/11/17 07:53 Aerobic Blood Culture - Preliminary Blood - Venous - Lab Draw NO GROWTH AFTER 1 DAY Anaerobic Blood Culture - Preliminary NO GROWTH AFTER 1 DAY Med Orders - Current: Current Medications Acetaminophen (Tylenol) 650 mg PO Q6H PRN PRN Reason: Pain Last Admin: 09/11/17 14:19 Dose: 650 mg Alprazolam (Xanax) 0.25 mg PO DAILY [facility] Last Admin: 09/12/17 08:27 Dose: 0.25 mg Carvedilol (Coreg) 3.125 mg PO BIDMEALS [facility] Last Admin: 09/12/17 08:25 Dose: 3.125 mg Digoxin (Lanoxin) 250 mcg PO DAILY [facility] Last Admin: 09/12/17 08:24 Dose: 250 mcg Furosemide (Lasix) 40 mg IVPUSH Q12H [facility] Last Admin: 09/12/17 08:28 Dose: 40 mg Heparin Sodium (Porcine) (Heparin Sodium) 5,000 units SUBCUT Q8HR [facility] Last Admin: 09/12/17 06:16 Dose: 5,000 units Lisinopril (Prinivil) 2.5 mg PO DAILY [facility] Last Admin: 09/12/17 08:26 Dose: 2.5 mg Lorazepam (Ativan) 1 mg IVPUSH ASDIRECTED PRN; Protocol PRN Reason: Withdrawal Symptoms Last Admin: 09/12/17 04:15 Dose: 1 mg Mometasone Furoate/Formoterol Fumar (Dulera 200-5 Mcg) 2 puff IH BID [facility] Nicotine (Habitrol) 14 mg TRDERM DAILY [facility] Last Admin: 09/12/17 09:30 Dose: Not Given Non-Formulary Medication (Melatonin [Melatonin]) 3 mg PO BEDTIME [facility] Pantoprazole Sodium (Protonix) 40 mg PO ACBRK [facility] Last Admin: 09/12/17 06:16 Dose: 40 mg Sertraline HCl (Zoloft) 50 mg PO DAILY [facility] Last Admin: 09/12/17 08:24 Dose: 50 mg Sodium Chloride (Saline Flush) 10 ml FLUSH ASDIRECTED PRN PRN Reason: Keep Vein Open Last Admin: 09/12/17 08:31 Dose: 10 ml Spironolactone (Aldactone) 25 mg PO DAILY [facility] Last Admin: 09/12/17 08:27 Dose: 25 mg Discontinued Medications Albuterol/Ipratropium (Duoneb 3.0-0.5 Mg/3 Ml) 3 ml NEB ONETIME ONE Stop: 09/11/17 07:38 Last Admin: 09/11/17 07:44 Dose: 3 ml Alprazolam (Xanax) 0.25 mg PO NOW ONE Stop: 09/11/17 14:18 Last Admin: 09/11/17 14:33 Dose: 0.25 mg Aspirin (Aspirin) 324 mg PO ONETIME ONE Stop: 09/11/17 07:38 Last Admin: 09/11/17 08:09 Dose: 324 mg Furosemide (Lasix) 40 mg IVPUSH NOW ONE Stop: 09/11/17 10:14 Last Admin: 09/11/17 10:23 Dose: 40 mg Furosemide (Lasix) 80 mg PO BID [facility] Lorazepam (Ativan) 1 mg PO ONETIME ONE Stop: 09/11/17 07:38 Last Admin: 09/11/17 08:09 Dose: 1 mg Lorazepam (Ativan) 1 mg IVPUSH ONETIME ONE Stop: 09/11/17 10:14 Last Admin: 09/11/17 10:28 Dose: 1 mg Methylprednisolone Sodium Succinate (Solu-Medrol) 125 mg IVPUSH ONETIME ONE Stop: 09/11/17 07:39 Last Admin: 09/11/17 08:11 Dose: 125 mg Potassium Chloride (Klor-Con 10) 40 meq PO ONETIME ONE Stop: 09/12/17 09:13 - Exam General: Alert, Oriented HEENT: Pupils Equal, Pupils Reactive, EOMI Neck: Supple Lungs: Crackles (bilaterally ) Cardiovascular: Regular Rate, Regular Rhythm GI/Abdominal Exam: Normal Bowel Sounds, Soft - Problem List Review Problem List Initiated/Reviewed/Updated: Yes - My Orders Last 24 Hours: My Active Orders 09/11/17 11:36 Admission Status [Patient Status] [ADT] Routine 09/11/17 11:49 Acetaminophen [Tylenol] 650 mg PO Q6H PRN 09/11/17 12:55 Patient Status [ADT] Routine Oxygen Therapy [RC] PRN VTE/DVT Education [RC] PER UNIT ROUTINE Vital Signs [RC] Q4H Resuscitation Status Routine 09/11/17 13:05 Ambulate [RC] ASDIRECTED Bedrest Bathroom Privileges [RC] ASDIRECTED Height and Weight [RC] DAILY May Shower [RC] ASDIRECTED Up ad Yudelka [RC] ASDIRECTED Up to Chair [RC] ASDIRECTED 09/11/17 13:06 Intake and Output [RC] QSHIFT 09/11/17 13:15 Nicotine [Habitrol] 14 mg TRDERM DAILY 09/11/17 14:00 Heparin Sodium 5,000 units SUBCUT Q8HR 09/11/17 17:57 LORazepam [Ativan] 1 mg IVPUSH ASDIRECTED PRN 09/11/17 18:00 Carvedilol [Coreg] 3.125 mg PO BIDMEALS 09/11/17 21:00 Furosemide [Lasix] 40 mg IVPUSH Q12H Melatonin [Melatonin] 3 mg PO BEDTIME 09/11/17 Dinner 2 Gram Sodium Diet [DIET] 09/12/17 06:00 Pantoprazole [ProTONIX] 40 mg PO ACBRK 09/12/17 09:00 ALPRAZolam [Xanax] 0.25 mg PO DAILY Digoxin [Lanoxin] 250 mcg PO DAILY Lisinopril [Prinivil] 2.5 mg PO DAILY Mometasone/Formoterol [Dulera 200-5 MCG] 2 puff IH BID Sertraline [Zoloft] 50 mg PO DAILY Spironolactone [Aldactone] 25 mg PO DAILY 09/12/17 Lunch Fluid Restriction [DIET] - Plan Plan:: # CHF exacerbation # Acute on chronic systolic heart failure IV lasix, 40 mg Q12 hrs fluid restriction to 1.5L per day sodium restriction to 2g per day Continue coreg, lisinopril, lasix, spironolactone home doses #Shoulder pain Pain management with tylenol # Substance abuse disorder UDS positive for methamphetamines counseled to seek rehab for drug use # Alcohol withdrawal monitor CIWAs manage with alcohol withdrawal protocol using ativan # DVT ppx SC heparin
[2017-09-12] MEDS: Formoterol/Mometasone 200-5 MCG 8.8 GM Inhaler IH SCH ×2 (10:34→21:05)
[2017-09-13] MEDS: Pantoprazole 40 MG Tab.CR PO SCH (06:03)
[2017-09-13] MEDS: Heparin Sodium 5,000 Units/ML Vial SUBCUT SCH ×3 (06:03→21:05)
[2017-09-13 07:04] LABS: ANION GAP 9.8; CHLORIDE,CL 110 mmol/L (101-111); SODIUM,NA 144 mmol/L (135-145)
[2017-09-13] MEDS: Furosemide 40 MG/4 ML VIAL IVPUSH SCH ×2 (08:36→21:06)
[2017-09-13] MEDS: ALPRAZolam 0.25 MG Tab PO SCH (08:37)
[2017-09-13] MEDS: Sertraline 50 MG Tab PO SCH (08:37)
[2017-09-13] MEDS: Spironolactone 25 MG Tab PO SCH (08:37)
[2017-09-13] MEDS: Nicotine 14 MG/24 Hr Patch TRDERM SCH (08:38)
[2017-09-13] MEDS: Carvedilol 3.125 MG Tab PO SCH ×2 (08:44→17:15)
[2017-09-13] MEDS: Lisinopril 5 MG Tab PO SCH (08:45)
[2017-09-13] MEDS: Digoxin 250 MCG Tab PO SCH (08:45)
[2017-09-13] MEDS: LORazepam 2 MG/ML Syringe IVPUSH PRN ×5 (09:03→21:06)
[2017-09-13] MEDS: Formoterol/Mometasone 200-5 MCG 8.8 GM Inhaler IH SCH ×2 (09:06→21:05)
--- NOTE | 2017-09-13 11:23 | PCM.PN ---
- General Info Date of Service: 09/13/17 Admission Dx/Problem (Free Text): Admission Diagnosis/Problem Admission Diagnosis/Problem CHF, Congestive heart failure Subjective Update: Has improved symptomatically. Does not have ride to go home on [place] today. - Review of Systems General: Reports: No Symptoms HEENT: Reports: No Symptoms Pulmonary: Reports: No Symptoms Cardiovascular: Reports: No Symptoms Gastrointestinal: Reports: No Symptoms Genitourinary: Reports: No Symptoms Musculoskeletal: Reports: No Symptoms Skin: Reports: No Symptoms - Patient Data Vitals - Most Recent: Last Vital Signs Temp 36.9 C 09/13/17 11:14 Pulse 84 09/13/17 11:14 Resp 20 09/13/17 11:14 BP 93/69 09/13/17 11:14 Pulse Ox 98 09/13/17 11:14 Weight - Most Recent: 75.296 kg I&O - Last 24 Hours: Intake & Output 09/12/17 09/13/17 09/13/17 22:59 06:59 14:59 Intake Total 540 1045 Output Total 500 1000 300 Balance 40 -1000 745 Lab Results Last 24 Hours: Laboratory Results - last 24 hr 09/13/17 Range/Units 06:30 Sodium 144 (135-145) mmol/L Potassium 3.8 (3.6-5.0) mmol/L Chloride 110 (101-111) mmol/L Carbon Dioxide 28.0 (21.0-31.0) mmol/L Anion Gap 9.8 BUN 20 H (7-18) mg/dL Creatinine 0.8 (0.6-1.3) mg/dL Est Cr Clr Drug Dosing 78.13 mL/min Estimated GFR (MDRD) > 60 Glucose 98 (74-105) mg/dL Calcium 9.1 (8.4-10.2) mg/dl Magnesium 1.8 (1.8-2.5) mg/dL Srikanth Results Last 24 Hours: Microbiology 09/11/17 07:46 Aerobic Blood Culture - Preliminary Blood - Venous NO GROWTH AFTER 2 DAYS Anaerobic Blood Culture - Preliminary NO GROWTH AFTER 2 DAYS 09/11/17 07:53 Aerobic Blood Culture - Preliminary Blood - Venous - Lab Draw NO GROWTH AFTER 2 DAYS Anaerobic Blood Culture - Preliminary NO GROWTH AFTER 2 DAYS Med Orders - Current: Current Medications Acetaminophen (Tylenol) 650 mg PO Q6H PRN PRN Reason: Pain Last Admin: 09/11/17 14:19 Dose: 650 mg Alprazolam (Xanax) 0.25 mg PO DAILY [facility] Last Admin: 09/13/17 08:37 Dose: 0.25 mg Carvedilol (Coreg) 3.125 mg PO BIDMEALS [facility] Last Admin: 09/13/17 08:44 Dose: 3.125 mg Digoxin (Lanoxin) 250 mcg PO DAILY [facility] Last Admin: 09/13/17 08:45 Dose: 250 mcg Furosemide (Lasix) 40 mg IVPUSH Q12H [facility] Last Admin: 09/13/17 08:36 Dose: 40 mg Heparin Sodium (Porcine) (Heparin Sodium) 5,000 units SUBCUT Q8HR [facility] Last Admin: 09/13/17 06:03 Dose: 5,000 units Lisinopril (Prinivil) 2.5 mg PO DAILY [facility] Last Admin: 09/13/17 08:45 Dose: 2.5 mg Lorazepam (Ativan) 1 - 3 mg IVPUSH ASDIRECTED PRN; Protocol PRN Reason: Withdrawal Symptoms Last Admin: 09/13/17 09:03 Dose: 1 mg Mometasone Furoate/Formoterol Fumar (Dulera 200-5 Mcg) 2 puff IH BID [facility] Last Admin: 09/13/17 09:06 Dose: 2 puff Nicotine (Habitrol) 14 mg TRDERM DAILY [facility] Last Admin: 09/13/17 08:38 Dose: 14 mg Non-Formulary Medication (Melatonin [Melatonin]) 3 mg PO BEDTIME [facility] Pantoprazole Sodium (Protonix) 40 mg PO ACBRK [facility] Last Admin: 09/13/17 06:03 Dose: 40 mg Sertraline HCl (Zoloft) 50 mg PO DAILY [facility] Last Admin: 09/13/17 08:37 Dose: 50 mg Sodium Chloride (Saline Flush) 10 ml FLUSH ASDIRECTED PRN PRN Reason: Keep Vein Open Last Admin: 09/12/17 08:31 Dose: 10 ml Spironolactone (Aldactone) 25 mg PO DAILY [facility] Last Admin: 09/13/17 08:37 Dose: 25 mg Discontinued Medications Albuterol/Ipratropium (Duoneb 3.0-0.5 Mg/3 Ml) 3 ml NEB ONETIME ONE Stop: 09/11/17 07:38 Last Admin: 09/11/17 07:44 Dose: 3 ml Alprazolam (Xanax) 0.25 mg PO NOW ONE Stop: 09/11/17 14:18 Last Admin: 09/11/17 14:33 Dose: 0.25 mg Aspirin (Aspirin) 324 mg PO ONETIME ONE Stop: 09/11/17 07:38 Last Admin: 09/11/17 08:09 Dose: 324 mg Furosemide (Lasix) 40 mg IVPUSH NOW ONE Stop: 09/11/17 10:14 Last Admin: 09/11/17 10:23 Dose: 40 mg Furosemide (Lasix) 80 mg PO BID [facility] Lorazepam (Ativan) 1 mg PO ONETIME ONE Stop: 09/11/17 07:38 Last Admin: 09/11/17 08:09 Dose: 1 mg Lorazepam (Ativan) 1 mg IVPUSH ONETIME ONE Stop: 09/11/17 10:14 Last Admin: 09/11/17 10:28 Dose: 1 mg Lorazepam (Ativan) 1 mg IVPUSH ASDIRECTED PRN; Protocol PRN Reason: Withdrawal Symptoms Last Admin: 09/12/17 17:54 Dose: 1 mg Methylprednisolone Sodium Succinate (Solu-Medrol) 125 mg IVPUSH ONETIME ONE Stop: 09/11/17 07:39 Last Admin: 09/11/17 08:11 Dose: 125 mg Potassium Chloride (Klor-Con 10) 40 meq PO ONETIME ONE Stop: 09/12/17 09:13 Last Admin: 09/12/17 10:35 Dose: 40 meq - Exam General: Alert, Oriented HEENT: Pupils Equal Neck: Supple Lungs: Clear to Auscultation Cardiovascular: Regular Rate, Regular Rhythm GI/Abdominal Exam: Normal Bowel Sounds - Problem List Review Problem List Initiated/Reviewed/Updated: Yes - My Orders Last 24 Hours: My Active Orders 09/12/17 23:00 LORazepam [Ativan] 1 - 3 mg IVPUSH ASDIRECTED PRN 09/12/17 Lunch Fluid Restriction [DIET] - Plan Plan:: # CHF exacerbation # Acute on chronic systolic heart failure IV lasix, 40 mg Q12 hrs fluid restriction to 1.5L per day sodium restriction to 2g per day Continue coreg, lisinopril, lasix, spironolactone home doses #Shoulder pain Pain management with tylenol # Substance abuse disorder UDS positive for methamphetamines counseled to seek rehab for drug use # Alcohol withdrawal monitor CIWAs manage with alcohol withdrawal protocol using ativan # DVT ppx SC heparin # Dispo Has improved symptomatically and ready for discharge, but does not have ride to go home today.
[2017-09-13] MEDS: Sodium Chloride 0.9% 10 ML Syringe FLUSH PRN (12:52)
[2017-09-13] MEDS: Acetaminophen 325 MG Tab PO PRN (16:51)
[2017-09-14] MEDS: LORazepam 2 MG/ML Syringe IVPUSH PRN ×2 (03:05→04:23)
[2017-09-14] MEDS: Heparin Sodium 5,000 Units/ML Vial SUBCUT SCH (06:07)
[2017-09-14] MEDS: Pantoprazole 40 MG Tab.CR PO SCH (06:08)
--- NOTE | 2017-09-14 07:17 | EKG ---
09/11/2017- MANNIE MEREDITH - EKG shows a heart rate of 96 beats per minute, sinus rhythm, left ventricular hypertrophy. [facility] /[id number]
[2017-09-14] MEDS: Sertraline 50 MG Tab PO SCH (08:36)
[2017-09-14] MEDS: Digoxin 250 MCG Tab PO SCH (08:37)
[2017-09-14] MEDS: Spironolactone 25 MG Tab PO SCH (08:37)
[2017-09-14] MEDS: ALPRAZolam 0.25 MG Tab PO SCH (08:37)
[2017-09-14] MEDS: Carvedilol 3.125 MG Tab PO SCH (08:38)
[2017-09-14] MEDS: Lisinopril 5 MG Tab PO SCH (08:39)
[2017-09-14 08:41] VITALS: BP 100/70
[2017-09-14] MEDS: Sodium Chloride 0.9% 10 ML Syringe FLUSH PRN (08:44)
[2017-09-14] MEDS: Furosemide 40 MG/4 ML VIAL IVPUSH SCH (08:45)
[2017-09-14] MEDS: Formoterol/Mometasone 200-5 MCG 8.8 GM Inhaler IH SCH (08:50)
[2017-09-14] MEDS: Nicotine 14 MG/24 Hr Patch TRDERM SCH (08:51)
[2017-09-14] MEDS ORDERED: LORazepam 1 MG Tab PO PRN (09:20)
--- NOTE | 2017-09-14 09:46 | PCM.DCSUM1 ---
Discharge Summary - Hospital Course Free Text/Narrative:: 52 yo M with PMH of CHF (EF 25% NICM, s/p ICD), HTN, HLD, chronic substance abuse, alcoholism, cigarette smoking who presents to the ED with shortness of breath. He was managed for a mild CHF exacerbation. He improved with IV diuresis and is okay for discharge. UDS was positive for methamphetamines and was counseled on substance abuse - Discharge Data Discharge Date: 09/14/17 Discharge Disposition: Home, Self-Care 01 Condition: Stable - Patient Instructions Diet: Low Sodium, Fluid Restriction Fluid Restriction: 1500 mL Activity: As Tolerated Showering/Bathing: July Shower - Discharge Plan Home Medications: Home Meds Carvedilol [Coreg] 3.125 mg PO BIDMEALS 10/18/15 [History] Lisinopril 2.5 mg PO DAILY #30 04/20/17 [Rx] Potassium Chloride [Klor-Con 10] 20 meq PO DAILY #30 tab.er 04/20/17 [Rx] Sertraline [Zoloft] 50 mg PO DAILY 30 Days #30 tablet 04/20/17 [Rx] Spironolactone [Aldactone] 25 mg PO DAILY 30 Days #30 tablet 04/20/17 [Rx] ALPRAZolam [Xanax] 0.25 mg PO DAILY 07/31/17 [History] Digoxin 0.25 mg PO DAILY 07/31/17 [History] Fluticasone/Salmeterol [Advair 250-50 Diskus] 1 puff INH DAILY 07/31/17 [History ] Melatonin 3 mg PO BEDTIME 07/31/17 [History] Pantoprazole Sodium [Protonix] 40 mg PO DAILY 07/31/17 [History] oxyCODONE HCl/Acetaminophen [Oxycodone-Acetaminophen 5-325] 1 tab PO Q6H PRN [History] Furosemide [Lasix] 80 mg PO BID 08/20/17 [History] Forms: ED Department Discharge - Discharge Summary/Plan Comment Discharge Summary/Plan Comment: Follow-up with PCP, follow-up with cardiology clinic. Fluid restriction 1.5 L per day, salt restriction - General Info Admission Dx/Problem (Free Text: Admission Diagnosis/Problem Admission Diagnosis/Problem CHF, Congestive heart failure Subjective Update: Has improved symptomatically. - Review of Systems General: Reports: No Symptoms HEENT: Reports: No Symptoms Pulmonary: Reports: No Symptoms Cardiovascular: Reports: No Symptoms Gastrointestinal: Reports: No Symptoms Genitourinary: Reports: No Symptoms Musculoskeletal: Reports: No Symptoms Skin: Reports: No Symptoms Neurological: Reports: No Symptoms - Patient Data Vitals - Most Recent: Last Vital Signs Temp 36.2 C 09/14/17 07:00 Pulse 83 09/14/17 08:38 Resp 20 09/14/17 07:00 BP 100/70 09/14/17 08:39 Pulse Ox 98 09/14/17 07:00 Weight - Most Recent: 75.024 kg I&O - Last 24 hours: Intake & Output 09/13/17 09/14/17 09/14/17 22:59 06:59 14:59 Intake Total 510 Output Total 650 675 Balance -140 -675 LETI Results - Last 24 hrs: Microbiology 09/11/17 07:46 Aerobic Blood Culture - Preliminary Blood - Venous NO GROWTH AFTER 3 DAYS Anaerobic Blood Culture - Preliminary NO GROWTH AFTER 3 DAYS 09/11/17 07:53 Aerobic Blood Culture - Preliminary Blood - Venous - Lab Draw NO GROWTH AFTER 3 DAYS Anaerobic Blood Culture - Preliminary NO GROWTH AFTER 3 DAYS Med Orders - Current: Current Medications Acetaminophen (Tylenol) 650 mg PO Q6H PRN PRN Reason: Pain Last Admin: 09/13/17 16:51 Dose: 650 mg Alprazolam (Xanax) 0.25 mg PO DAILY [facility] Last Admin: 09/14/17 08:37 Dose: 0.25 mg Carvedilol (Coreg) 3.125 mg PO BIDMEALS [facility] Last Admin: 09/14/17 08:38 Dose: 3.125 mg Digoxin (Lanoxin) 250 mcg PO DAILY [facility] Last Admin: 09/14/17 08:37 Dose: 250 mcg Furosemide (Lasix) 40 mg IVPUSH Q12H [facility] Last Admin: 09/14/17 08:45 Dose: 40 mg Heparin Sodium (Porcine) (Heparin Sodium) 5,000 units SUBCUT Q8HR [facility] Last Admin: 09/14/17 06:07 Dose: 5,000 units Lisinopril (Prinivil) 2.5 mg PO DAILY [facility] Last Admin: 09/14/17 08:39 Dose: 2.5 mg Lorazepam (Ativan) 1 - 3 mg IVPUSH ASDIRECTED PRN; Protocol PRN Reason: Withdrawal Symptoms Last Admin: 09/14/17 04:23 Dose: 1 mg Lorazepam (Ativan) 1 - 3 mg PO ASDIRECTED PRN; Protocol PRN Reason: Withdrawal Symptoms Mometasone Furoate/Formoterol Fumar (Dulera 200-5 Mcg) 2 puff IH BID [facility] Last Admin: 09/14/17 08:50 Dose: 2 puff Nicotine (Habitrol) 14 mg TRDERM DAILY [facility] Last Admin: 09/14/17 08:51 Dose: 14 mg Non-Formulary Medication (Melatonin [Melatonin]) 3 mg PO BEDTIME [facility] Pantoprazole Sodium (Protonix) 40 mg PO ACBRK [facility] Last Admin: 09/14/17 06:08 Dose: 40 mg Sertraline HCl (Zoloft) 50 mg PO DAILY [facility] Last Admin: 09/14/17 08:36 Dose: 50 mg Sodium Chloride (Saline Flush) 10 ml FLUSH ASDIRECTED PRN PRN Reason: Keep Vein Open Last Admin: 09/14/17 08:44 Dose: 10 ml Spironolactone (Aldactone) 25 mg PO DAILY [facility] Last Admin: 09/14/17 08:37 Dose: 25 mg Discontinued Medications Albuterol/Ipratropium (Duoneb 3.0-0.5 Mg/3 Ml) 3 ml NEB ONETIME ONE Stop: 09/11/17 07:38 Last Admin: 09/11/17 07:44 Dose: 3 ml Alprazolam (Xanax) 0.25 mg PO NOW ONE Stop: 09/11/17 14:18 Last Admin: 09/11/17 14:33 Dose: 0.25 mg Aspirin (Aspirin) 324 mg PO ONETIME ONE Stop: 09/11/17 07:38 Last Admin: 09/11/17 08:09 Dose: 324 mg Furosemide (Lasix) 40 mg IVPUSH NOW ONE Stop: 09/11/17 10:14 Last Admin: 09/11/17 10:23 Dose: 40 mg Furosemide (Lasix) 80 mg PO BID [facility] Lorazepam (Ativan) 1 mg PO ONETIME ONE Stop: 09/11/17 07:38 Last Admin: 09/11/17 08:09 Dose: 1 mg Lorazepam (Ativan) 1 mg IVPUSH ONETIME ONE Stop: 09/11/17 10:14 Last Admin: 09/11/17 10:28 Dose: 1 mg Lorazepam (Ativan) 1 mg IVPUSH ASDIRECTED PRN; Protocol PRN Reason: Withdrawal Symptoms Last Admin: 09/12/17 17:54 Dose: 1 mg Methylprednisolone Sodium Succinate (Solu-Medrol) 125 mg IVPUSH ONETIME ONE Stop: 09/11/17 07:39 Last Admin: 09/11/17 08:11 Dose: 125 mg Potassium Chloride (Klor-Con 10) 40 meq PO ONETIME ONE Stop: 09/12/17 09:13 Last Admin: 09/12/17 10:35 Dose: 40 meq - Exam General: Reports: Alert, Oriented HEENT: Reports: Pupils Equal, Pupils Reactive Neck: Reports: Supple Lungs: Reports: Clear to Auscultation Cardiovascular: Reports: Regular Rate, Regular Rhythm GI/Abdominal Exam: Normal Bowel Sounds
== END 2017-09-14 10:55 | disposition home or self-care (01) ==
LOC: DL.ED 07:09 → DL.MS 11:36 → UNDOADMOB 11:45
PROVIDERS: ADMIT Hospitalist; ATTEND Hospitalist
DX: I11.0 Hypertensive heart disease with heart failure (principal); I50.23 Acute on chronic systolic (congestive) heart failure; E78.5 Hyperlipidemia, unspecified; F19.10 Other psychoactive substance abuse, uncomplicated; F10.239 Alcohol dependence with withdrawal, unspecified; F17.210 Nicotine dependence, cigarettes, uncomplicated; K21.9 Gastro-esophageal reflux disease without esophagitis; K29.70 Gastritis, unspecified, without bleeding; M19.90 Unspecified osteoarthritis, unspecified site; M25.519 Pain in unspecified shoulder; F41.9 Anxiety disorder, unspecified; F32.9 Major depressive disorder, single episode, unspecified; Z79.899 Other long term (current) drug therapy; Z82.49 Family history of ischemic heart disease and other diseases of the circulatory system
CPT/HCPCS: 36415; 71046; 80048; 80053; 80162; 80305; 81001; 82550; 82553; 82962; 83605; 83735; 83880; 84484; 85025; 87040; 93005; 96374; 96375; 99285; A9270; G0480; J1644; J1940; J2060; J2930; J7050; 96372; 96376; G0378

== ENCOUNTER 2017-09-18 11:01 | Emergency (ER) | payer MEDICAID ==
[2017-09-18 11:14] VITALS: BP 103/70
--- NOTE | 2017-09-18 11:29 | EDM.PDOC ---
ED HPI GENERAL MEDICAL PROBLEM - General Stated Complaint: QUESTIONABLE PNEOMNIA Time Seen by Provider: 09/18/17 11:20 Source of Information: Reports: Patient History Limitations: Reports: No Limitations - History of Present Illness INITIAL COMMENTS - FREE TEXT/NARRATIVE: This 52 yo male patient was brought to the ED by [facility] due to increased chest pain and a cough. The patient reports his symptoms started yesterday and have been getting worse. The patient reports he feels like he has pressure in his chest. The patient has been coughing up green sputum since yesterday. The patient has not been seen by his primary care facility, but has an appointment next week (09/21/17) for a "check-up". The patient has not taken anything that made his symptoms better or worse. Onset Date: 09/17/17 Duration: Constant, Getting Worse Location: Reports: Chest Quality: Reports: Pressure, Other (tightness) Severity: Moderate Improves with: Reports: None Worsens with: Reports: None Context: Reports: Other Associated Symptoms: Reports: Chest Pain, cough w sputum, Fever/Chills - Related Data Allergies Allergy/AdvReac Type Severity Reaction Status Date / Time No Known Allergies Allergy Verified 09/11/17 11:52 Home Meds: Home Meds Carvedilol [Coreg] 3.125 mg PO BIDMEALS 10/18/15 [History] Lisinopril 2.5 mg PO DAILY #30 04/20/17 [Rx] Potassium Chloride [Klor-Con 10] 20 meq PO DAILY #30 tab.er 04/20/17 [Rx] Sertraline [Zoloft] 50 mg PO DAILY 30 Days #30 tablet 04/20/17 [Rx] Spironolactone [Aldactone] 25 mg PO DAILY 30 Days #30 tablet 04/20/17 [Rx] ALPRAZolam [Xanax] 0.25 mg PO DAILY 07/31/17 [History] Digoxin 0.25 mg PO DAILY 07/31/17 [History] Fluticasone/Salmeterol [Advair 250-50 Diskus] 1 puff INH DAILY 07/31/17 [History ] Melatonin 3 mg PO BEDTIME 07/31/17 [History] Pantoprazole Sodium [Protonix] 40 mg PO DAILY 07/31/17 [History] oxyCODONE HCl/Acetaminophen [Oxycodone-Acetaminophen 5-325] 1 tab PO Q6H PRN [History] Furosemide [Lasix] 80 mg PO BID 08/20/17 [History] Past Medical History - Past Health History Medical/Surgical History: Denies Medical/Surgical History HEENT History: Reports: None Cardiovascular History: Reports: Blood Clots/VTE/DVT, Cardiomyopathy, Heart Failure, Hypertension, Pacemaker, SOB on Exertion Respiratory History: Reports: SOB Gastrointestinal History: Reports: Gastritis, GERD Genitourinary History: Reports: Other (See Below) Other Genitourinary History: liver issues r/t ETOH Musculoskeletal History: Reports: Arthritis, Other (See Below) Other Musculoskeletal History: torn left and right upper arm tendon. missed surgery 03/2017 Neurological History: Reports: None Psychiatric History: Reports: Addiction, Anxiety, Depression, Panic Attack Other Psychiatric History: Pt states that he has been in treatment for alcoholism many times, last times 10 years ago, and he quit drinking for 8 years Endocrine/Metabolic History: Reports: None Hematologic History: Reports: None Immunologic History: Reports: None Oncologic (Cancer) History: Reports: None Dermatologic History: Reports: None - Infectious Disease History Infectious Disease History: Reports: None - Past Surgical History Head Surgeries/Procedures: Reports: None Cardiovascular Surgical History: Reports: AICD, Percutaneous Transluminal Angioplasty Respiratory Surgical History: Reports: None GI Surgical History: Reports: None Male Surgical History: Reports: None Neurological Surgical History: Reports: None Musculoskeletal Surgical History: Reports: None Social & Family History - Family History Family Medical History: Noncontributory Cardiac: Reports: Hypertension Other Cardiac Family History: Dad and paternal grandmother have hypertension. Respiratory: Reports: Asthma Other Respiratory Family Hisory: Mom and dad have asthma. Endocrine/Metabolic: Reports: Diabetes, Type I Other Endocrine/Metabolic Family History: Dad and paternal grandmother have type I diabetes. - Caffeine Use Caffeine Use: Reports: Coffee, Soda - Living Situation & Occupation Living situation: Reports: with Family ED ROS GENERAL - Review of Systems Review Of Systems: ROS reveals no pertinent complaints other than HPI. ED EXAM, GENERAL - Physical Exam Exam: See Below Exam Limited By: No Limitations General Appearance: Alert, WD/WN, Moderate Distress Eye Exam: Bilateral Eye: EOMI, Normal Inspection, PERRL Ears: Normal External Exam, Normal Canal, Hearing Grossly Normal, Normal TMs Nose: Normal Inspection, Normal Mucosa, No Blood Throat/Mouth: Normal Inspection, Normal Lips, Normal Teeth, Normal Gums, Normal Oropharynx, Normal Voice, No Airway Compromise Head: Atraumatic, Normocephalic Neck: Normal Inspection, Supple, Non-Tender, Full Range of Motion Respiratory/Chest: Decreased Breath Sounds (left side), Rhonchi (left side) Cardiovascular: Normal Peripheral Pulses, Regular Rate, Rhythm, No Edema, No Gallop, No JVD, No Murmur, No Rub GI/Abdominal: Normal Bowel Sounds, Soft, Non-Tender, No Organomegaly, No Distention, No Abnormal Bruit, No Mass (Male) Exam: Deferred Rectal (Males) Exam: Deferred Back Exam: Normal Inspection, Full Range of Motion, NT Extremities: Normal Inspection, Normal Range of Motion, Non-Tender, Normal Capillary Refill, No Pedal Edema Neurological: Alert, Oriented, CN II-XII Intact, Normal Cognition, Normal Gait, Normal Reflexes, No Motor/Sensory Deficits Psychiatric: Normal Affect, Normal Mood Skin Exam: Warm, Dry, Intact, Normal Color, No Rash Lymphatic: No Adenopathy Course - Vital Signs Last Recorded V/S: Last Vital Signs Temp 36.8 C 09/18/17 11:00 Pulse 78 09/18/17 11:00 Resp 18 09/18/17 11:00 BP 103/70 09/18/17 11:00 Pulse Ox 100 09/18/17 11:00 - Orders/Labs/Meds Orders: Active Orders 24 hr Category Date Time Status EKG Documentation Completion [RC] URGENT Care 09/18/17 11:04 Active Chest 1V Frontal [CR] Urgent Exams 09/18/17 11:04 Taken DRUG SCREEN URINE BIORAD [URCHEM] Stat Lab 09/18/17 11:15 Ordered UA W/MICROSCOPIC [URIN] Stat Lab 09/18/17 11:15 Ordered cefTRIAXone [Rocephin] Med 09/18/17 12:28 Once 1 gm IVPUSH ONETIME ONE Labs: Laboratory Tests 09/18/17 09/18/17 09/18/17 Range/Units 11:15 11:15 11:22 WBC (5.0-10.0) 10^3/uL RBC (4.6-6.2) 10^6/uL Hgb (14.0-18.0) g/dL Hct (40.0-54.0) % MCV (80-100) fL MCH (27.0-34.0) pg MCHC (33.0-35.0) g/dL Plt Count (150-450) 10^3/uL Neut % (Auto) (42.2-75.2) % Lymph % (Auto) (20.5-50.1) % [place] % (Auto) (2-8) % Eos % (Auto) (1.0-3.0) % Baso % (Auto) (0.0-1.0) % Sodium (135-145) mmol/L Potassium (3.6-5.0) mmol/L Chloride (101-111) mmol/L Carbon Dioxide (21.0-31.0) mmol/L Anion Gap BUN (7-18) mg/dL Creatinine (0.6-1.3) mg/dL Est Cr Clr Drug Dosing mL/min Estimated GFR (MDRD) BUN/Creatinine Ratio Glucose (74-105) mg/dL Calcium (8.4-10.2) mg/dl Total Bilirubin (0.2-1.0) mg/dL AST (10-42) IU/L ALT (10-60) IU/L Alkaline Phosphatase (42-121) IU/L Troponin I (0.00-0.02) ng/ml Total Protein (6.7-8.2) g/dl Albumin (3.2-5.5) g/dl Globulin Albumin/Globulin Ratio Urine Color Light yellow (YELLOW) Urine Appearance Clear (CLEAR) Urine pH 6.5 (5.0-9.0) Ur Specific [place] 1.010 (1.005-1.030) Urine Protein Negative (NEGATIVE) Urine Glucose (UA) Negative (NEGATIVE) Urine Ketones Negative (NEGATIVE) Urine Occult Blood Negative (NEGATIVE) Urine Nitrite Negative (NEGATIVE) Urine Bilirubin Negative (NEGATIVE) Urine Urobilinogen 0.2 (0.2-1.0) mg/dL Ur Leukocyte Esterase Negative (NEGATIVE) Urine RBC 0-5 /HPF Urine WBC 0-5 (0-5/HPF) /HPF Ur Epithelial Cells Rare /HPF Urine Bacteria Rare (0-FEW/HPF) /HPF Urine Mucus Rare /LPF Urine Opiates Screen Negative (NEGATIVE) Ur Oxycodone Screen Positive H (NEGATIVE) Urine Methadone Screen Negative (NEGATIVE) Ur Barbiturates Screen Negative (NEGATIVE) U Tricyclic Antidepress Negative (NEGATIVE) Ur Phencyclidine Scrn Negative (NEGATIVE) Ur Amphetamine Screen Negative (NEGATIVE) U Methamphetamines Scrn Negative (NEGATIVE) Urine MDMA Screen Negative (NEGATIVE) U Benzodiazepines Scrn Negative (NEGATIVE) Urine Cocaine Screen Negative (NEGATIVE) U Marijuana (THC) Screen Negative (NEGATIVE) Ethyl Alcohol < 5 mg/dL 09/18/17 09/18/17 Range/Units 11:22 11:22 WBC 7.9 (5.0-10.0) 10^3/uL RBC 4.84 (4.6-6.2) 10^6/uL Hgb 13.5 L (14.0-18.0) g/dL Hct 42.2 (40.0-54.0) % MCV 87.2 (80-100) fL MCH 27.9 (27.0-34.0) pg MCHC 32.0 L (33.0-35.0) g/dL Plt Count 267 (150-450) 10^3/uL Neut % (Auto) 72.8 (42.2-75.2) % Lymph % (Auto) 12.7 L (20.5-50.1) % [place] % (Auto) 6.9 (2-8) % Eos % (Auto) 7.1 H (1.0-3.0) % Baso % (Auto) 0.5 (0.0-1.0) % Sodium 139 (135-145) mmol/L Potassium 3.8 (3.6-5.0) mmol/L Chloride 108 (101-111) mmol/L Carbon Dioxide 24.0 (21.0-31.0) mmol/L Anion Gap 10.8 BUN 11 (7-18) mg/dL Creatinine 0.7 (0.6-1.3) mg/dL Est Cr Clr Drug Dosing 126.25 mL/min Estimated GFR (MDRD) > 60 BUN/Creatinine Ratio 15.71 Glucose 106 H (74-105) mg/dL Calcium 8.6 (8.4-10.2) mg/dl Total Bilirubin 0.9 (0.2-1.0) mg/dL AST 20 (10-42) IU/L ALT 9 L (10-60) IU/L Alkaline Phosphatase 128 H (42-121) IU/L Troponin I 0.02 (0.00-0.02) ng/ml Total Protein 7.3 (6.7-8.2) g/dl Albumin 3.5 (3.2-5.5) g/dl Globulin 3.8 Albumin/Globulin Ratio 0.92 Urine Color (YELLOW) Urine Appearance (CLEAR) Urine pH (5.0-9.0) Ur Specific [place] (1.005-1.030) Urine Protein (NEGATIVE) Urine Glucose (UA) (NEGATIVE) Urine Ketones (NEGATIVE) Urine Occult Blood (NEGATIVE) Urine Nitrite (NEGATIVE) Urine Bilirubin (NEGATIVE) Urine Urobilinogen (0.2-1.0) mg/dL Ur Leukocyte Esterase (NEGATIVE) Urine RBC /HPF Urine WBC (0-5/HPF) /HPF Ur Epithelial Cells /HPF Urine Bacteria (0-FEW/HPF) /HPF Urine Mucus /LPF Urine Opiates Screen (NEGATIVE) Ur Oxycodone Screen (NEGATIVE) Urine Methadone Screen (NEGATIVE) Ur Barbiturates Screen (NEGATIVE) U Tricyclic Antidepress (NEGATIVE) Ur Phencyclidine Scrn (NEGATIVE) Ur Amphetamine Screen (NEGATIVE) U Methamphetamines Scrn (NEGATIVE) Urine MDMA Screen (NEGATIVE) U Benzodiazepines Scrn (NEGATIVE) Urine Cocaine Screen (NEGATIVE) U Marijuana (THC) Screen (NEGATIVE) Ethyl Alcohol mg/dL Departure - Departure Time of Disposition: 12:28 Disposition: Home, Self-Care 01 Condition: Fair Clinical Impression: Bronchitis Instructions: Acute Bronchitis, Adult, [id number] Forms: ED Department Discharge Care Plan Goals: The patient was advised of the examination, lab, EKG and x-ray results during the visit. The patient was given an IV dose of Rocephin. The patient was discharged with a script for Azithromycin (250 mg) #6 to take 2 by mouth on day 1 and 1 by mouth on days 2-5. If the patient has any additional symptoms or concerns, the patient should follow-up with his primary care facility or return to the emergency department. - My Orders Last 24 Hours: My Active Orders 09/18/17 11:04 EKG Documentation Completion [RC] URGENT Chest 1V Frontal [CR] Urgent 09/18/17 11:15 DRUG SCREEN URINE BIORAD [URCHEM] Stat UA W/MICROSCOPIC [URIN] Stat 09/18/17 12:28 cefTRIAXone [Rocephin] 1 gm IVPUSH ONETIME ONE - Assessment/Plan Last 24 Hours: My Active Orders 09/18/17 11:04 EKG Documentation Completion [RC] URGENT Chest 1V Frontal [CR] Urgent 09/18/17 11:15 DRUG SCREEN URINE BIORAD [URCHEM] Stat UA W/MICROSCOPIC [URIN] Stat 09/18/17 12:28 cefTRIAXone [Rocephin] 1 gm IVPUSH ONETIME ONE
[2017-09-18 11:50] LABS: ANION GAP 10.8; CHLORIDE,CL 108 mmol/L (101-111); SODIUM,NA 139 mmol/L (135-145)
[2017-09-18] MEDS ORDERED: cefTRIAXone 1 GM Vial IVPUSH ONE (12:28)
--- NOTE | 2017-09-22 12:02 | EKG ---
09/18/2017 - MANNIE MEREDITH - TIME: 11:15 a.m. FINDINGS: Sinus rhythm at 82. [facility] /[id number]
== END 2017-09-18 13:00 | disposition home or self-care (01) ==
LOC: DL.ED 11:01
DX: J40 Bronchitis, not specified as acute or chronic (principal); K21.9 Gastro-esophageal reflux disease without esophagitis; Z79.899 Other long term (current) drug therapy
CPT/HCPCS: 36415; 71045; 80053; 80305; 81001; 84484; 85025; 93005; 96374; 99284; G0480; J0696

== ENCOUNTER 2017-10-18 10:35 | Inpatient (IN) | payer MEDICAID ==
[2017-10-18] MEDS ORDERED: Furosemide 20 MG/2 ML VIAL IVPUSH ONE (10:51)
[2017-10-18] MEDS ORDERED: Thiamine 100 MG in Sodium Chloride 0.9% 100 ML IV ONE (10:52)
[2017-10-18] MEDS ORDERED: LORazepam 2 MG/ML Syringe IVPUSH ONE (10:52)
[2017-10-18] MEDS: Sodium Chloride 0.9% 10 ML Syringe FLUSH PRN ×2 (11:16→20:40)
[2017-10-18 11:30] LABS: ANION GAP 14.3; CHLORIDE,CL 104 mmol/L (101-111); SODIUM,NA 137 mmol/L (135-145)
--- NOTE | 2017-10-18 12:07 | EDM.PDOC ---
Scribed by Diann Nayak 10/18/17 1057 for Bernard Olson MD ED HPI GENERAL MEDICAL PROBLEM - General Chief Complaint: General Stated Complaint: BY AMBULANCE Time Seen by Provider: 10/18/17 10:43 Source of Information: Reports: Patient, EMS, EMS Notes Reviewed, RN, RN Notes Reviewed History Limitations: Reports: No Limitations - History of Present Illness INITIAL COMMENTS - FREE TEXT/NARRATIVE: Patient presents to ER by [facility] with complaint of shortness of breath getting worse over the past couple of days. He says that he was just discharged from [facility] with bronchitis and something else but he doesn't know what. He has been drinking alcohol heavily and stopped 3 days ago and now feels like he is beginning to have withdrawals with tremors, nausea, anxiety and intermittent episodes of confusion. He denies chest pain, but states that he feels chest pressure but it is from his breathing. HE admits to methamphetamine use. He is not sure but he thinks he last used something last week. He is also concerned because his skin has turned orange and his eyes have turned yellow. Onset: Gradual Duration: Getting Worse Location: Reports: Generalized Quality: Reports: Ache Severity: Severe Improves with: Reports: None Worsens with: Reports: None Associated Symptoms: Reports: No Other Symptoms Abdominal Pain Score (Numeric/FACES): 7 - Related Data Allergies Allergy/AdvReac Type Severity Reaction Status Date / Time No Known Allergies Allergy Verified 09/30/17 07:59 Home Meds: Home Meds Carvedilol [Coreg] 3.125 mg PO BIDMEALS 10/18/15 [History] Lisinopril 2.5 mg PO DAILY #30 04/20/17 [Rx] Potassium Chloride [Klor-Con 10] 20 meq PO DAILY #30 tab.er 04/20/17 [Rx] Sertraline [Zoloft] 50 mg PO DAILY 30 Days #30 tablet 04/20/17 [Rx] Spironolactone [Aldactone] 25 mg PO DAILY 30 Days #30 tablet 04/20/17 [Rx] ALPRAZolam [Xanax] 0.25 mg PO DAILY 07/31/17 [History] Digoxin 0.25 mg PO DAILY 07/31/17 [History] Fluticasone/Salmeterol [Advair 250-50 Diskus] 1 puff INH DAILY 07/31/17 [History ] Melatonin 3 mg PO BEDTIME 07/31/17 [History] Pantoprazole Sodium [Protonix] 40 mg PO DAILY 07/31/17 [History] oxyCODONE HCl/Acetaminophen [Oxycodone-Acetaminophen 5-325] 1 tab PO Q6H PRN [History] Furosemide [Lasix] 80 mg PO BID 08/20/17 [History] Past Medical History - Past Health History Medical/Surgical History: Denies Medical/Surgical History HEENT History: Reports: None Cardiovascular History: Reports: Blood Clots/VTE/DVT, Cardiomyopathy, Heart Failure, Hypertension, Pacemaker, SOB on Exertion Respiratory History: Reports: SOB Gastrointestinal History: Reports: Gastritis, GERD Genitourinary History: Reports: Other (See Below) Other Genitourinary History: liver issues r/t ETOH Musculoskeletal History: Reports: Arthritis, Other (See Below) Other Musculoskeletal History: torn left and right upper arm tendon. missed surgery 03/2017 Neurological History: Reports: None Psychiatric History: Reports: Addiction, Anxiety, Depression, Panic Attack Other Psychiatric History: Pt states that he has been in treatment for alcoholism many times, last times 10 years ago, and he quit drinking for 8 years Endocrine/Metabolic History: Reports: None Hematologic History: Reports: None Immunologic History: Reports: None Oncologic (Cancer) History: Reports: None Dermatologic History: Reports: None - Infectious Disease History Infectious Disease History: Reports: None - Past Surgical History Head Surgeries/Procedures: Reports: None Cardiovascular Surgical History: Reports: AICD, Percutaneous Transluminal Angioplasty Respiratory Surgical History: Reports: None GI Surgical History: Reports: None Male Surgical History: Reports: None Neurological Surgical History: Reports: None Musculoskeletal Surgical History: Reports: None Social & Family History - Family History Family Medical History: Noncontributory Cardiac: Reports: Hypertension Other Cardiac Family History: Dad and paternal grandmother have hypertension. Respiratory: Reports: Asthma Other Respiratory Family Hisory: Mom and dad have asthma. Endocrine/Metabolic: Reports: Diabetes, Type I Other Endocrine/Metabolic Family History: Dad and paternal grandmother have type I diabetes. - Tobacco Use Smoking Status *Q: Current Every Day Smoker Tobacco Use Within Last Twelve Months: Cigarettes Years of Tobacco use: 35 - Caffeine Use Caffeine Use: Reports: Coffee, Soda - Alcohol Use Alcohol Use History: Yes Alcohol Use Frequency: Binges - Recreational Drug Use Recreational Drug Use: Yes Drug Use in Last 12 Months: Yes Recreational Drug Type: Reports: Marijuana/Hashish, Methamphetamine Recreational Drug Use Frequency: Binges - Living Situation & Occupation Living situation: Reports: with Family Occupation: Unemployed ED ROS GENERAL - Review of Systems Review Of Systems: ROS reveals no pertinent complaints other than HPI. ED EXAM, GENERAL - Physical Exam Exam: See Below Exam Limited By: No Limitations General Appearance: Alert, Anxious, Other (chronically ill appearing) Eye Exam: Bilateral Eye: EOMI (with scleral icterus), PERRL Ears: Normal External Exam, Hearing Grossly Normal Nose: Normal Inspection, Normal Mucosa, No Blood Throat/Mouth: Normal Lips, Normal Oropharynx, Normal Voice, No Airway Compromise Head: Atraumatic, Normocephalic Neck: Normal Inspection, Supple, Non-Tender, Full Range of Motion Respiratory/Chest: No Respiratory Distress, No Accessory Muscle Use, Chest Non- Tender, Decreased Breath Sounds, Crackles, Rales. No: Rhonchi Cardiovascular: Regular Rate, Rhythm, No Edema, Tachycardia GI/Abdominal: Normal Bowel Sounds, Soft, Non-Tender, No Distention, Hepatomegaly. No: Guarding, Rigid, Rebound (Male) Exam: Deferred Rectal (Males) Exam: Deferred Back Exam: Normal Inspection, Full Range of Motion, NT Extremities: Normal Inspection, Normal Range of Motion, Non-Tender, Normal Capillary Refill, No Pedal Edema Neurological: Alert, Oriented, CN II-XII Intact, Normal Cognition, Normal Gait, No Motor/Sensory Deficits, Other (fine tremor of upper extremities) Psychiatric: Anxious Skin Exam: Warm, Dry, Intact, Jaundice, Other (subacute contusion to Rt upper arm) EKG INTERPRETATION EKG Date: 10/18/17 Time: 11:01 Rhythm: Other (sinus tachycardia) Rate (Beats/Min): 100 [place]: Normal P-Wave: Present QRS: Other (multille PVC, probable left atrial abnormality) ST-T: Normal QT: Normal Comparison: No Change Course - Vital Signs Last Recorded V/S: Last Vital Signs Temp 36.4 C 10/18/17 10:47 Pulse 98 10/18/17 10:47 Resp 18 10/18/17 10:47 BP 114/87 10/18/17 10:47 Pulse Ox 98 10/18/17 10:47 - Orders/Labs/Meds Orders: Active Orders 24 hr Category Date Time Status EKG 12 Lead [EKG Documentation Completion] [RC] STAT Care 10/18/17 10:50 Active Peripheral IV Care [RC] . DIRECTED Care 10/18/17 10:51 Active Chest 1V Frontal [CR] Stat Exams 10/18/17 10:51 Taken DRUG SCREEN URINE BIORAD [URCHEM] Stat Lab 10/18/17 11:32 Ordered UA W/MICROSCOPIC [URIN] Stat Lab 10/18/17 11:32 Ordered Sodium Chloride 0.9% [Saline Flush] Med 10/18/17 10:51 Active 10 ml FLUSH ASDIRECTED PRN Peripheral IV Insertion Adult [OM.PC] Stat Oth 10/18/17 10:50 Ordered Medication Orders Sodium Chloride (Saline Flush) 10 ml FLUSH ASDIRECTED PRN PRN Reason: Keep Vein Open Last Admin: 10/18/17 11:16 Dose: 10 ml Labs: Laboratory Tests 10/18/17 10/18/17 10/18/17 Range/Units 11:06 11:06 11:06 WBC 5.0 (5.0-10.0) 10^3/uL RBC 4.15 L (4.6-6.2) 10^6/uL Hgb 11.7 L D (14.0-18.0) g/dL Hct 36.9 L (40.0-54.0) % MCV 88.9 (80-100) fL MCH 28.2 (27.0-34.0) pg MCHC 31.7 L (33.0-35.0) g/dL Plt Count 188 (150-450) 10^3/uL Neut % (Auto) 71.4 (42.2-75.2) % Lymph % (Auto) 16.8 L (20.5-50.1) % Nash % (Auto) 9.0 H (2-8) % Eos % (Auto) 1.8 (1.0-3.0) % Baso % (Auto) 1.0 (0.0-1.0) % PT 15.2 H D (9.0-12.0) SEC INR 1.5 H (0.9-1.2) APTT 32.8 (22.0-34.0) SEC Sodium 137 (135-145) mmol/L Potassium 3.3 L (3.6-5.0) mmol/L Chloride 104 (101-111) mmol/L Carbon Dioxide 22.0 (21.0-31.0) mmol/L Anion Gap 14.3 BUN 12 (7-18) mg/dL Creatinine 0.8 (0.6-1.3) mg/dL Est Cr Clr Drug Dosing 110.47 mL/min Estimated GFR (MDRD) > 60 BUN/Creatinine Ratio 15.00 Glucose 138 H (74-105) mg/dL Calcium 8.6 (8.4-10.2) mg/dl Magnesium 1.5 L (1.8-2.5) mg/dL Total Bilirubin 3.8 H (0.2-1.0) mg/dL GGT 61 (7-64) IU/L AST 70 H (10-42) IU/L ALT 271 H (10-60) IU/L Alkaline Phosphatase 110 (42-121) IU/L Troponin I 0.03 H* (0.00-0.02) ng/ml B-Natriuretic Peptide 3930 H (0-100) pg/ml Total Protein 6.8 (6.7-8.2) g/dl Albumin 3.4 (3.2-5.5) g/dl Globulin 3.4 Albumin/Globulin Ratio 1.00 Urine Color (YELLOW) Urine Appearance (CLEAR) Urine pH (5.0-9.0) Ur Specific [place] (1.005-1.030) Urine Protein (NEGATIVE) Urine Glucose (UA) (NEGATIVE) Urine Ketones (NEGATIVE) Urine Occult Blood (NEGATIVE) Urine Nitrite (NEGATIVE) Urine Bilirubin (NEGATIVE) Urine Urobilinogen (0.2-1.0) mg/dL Ur Leukocyte Esterase (NEGATIVE) Urine RBC /HPF Urine WBC (0-5/HPF) /HPF Ur Epithelial Cells /HPF Amorphous Sediment (0/HPF) /HPF Urine Bacteria (0-FEW/HPF) /HPF Urine Mucus /LPF Urine Opiates Screen (NEGATIVE) Ur Oxycodone Screen (NEGATIVE) Urine Methadone Screen (NEGATIVE) Ur Barbiturates Screen (NEGATIVE) U Tricyclic Antidepress (NEGATIVE) Ur Phencyclidine Scrn (NEGATIVE) Ur Amphetamine Screen (NEGATIVE) U Methamphetamines Scrn (NEGATIVE) Urine MDMA Screen (NEGATIVE) U Benzodiazepines Scrn (NEGATIVE) Urine Cocaine Screen (NEGATIVE) U Marijuana (THC) Screen (NEGATIVE) Ethyl Alcohol < 5 mg/dL 10/18/17 10/18/17 Range/Units 11:32 11:32 WBC (5.0-10.0) 10^3/uL RBC (4.6-6.2) 10^6/uL Hgb (14.0-18.0) g/dL Hct (40.0-54.0) % MCV (80-100) fL MCH (27.0-34.0) pg MCHC (33.0-35.0) g/dL Plt Count (150-450) 10^3/uL Neut % (Auto) (42.2-75.2) % Lymph % (Auto) (20.5-50.1) % Nash % (Auto) (2-8) % Eos % (Auto) (1.0-3.0) % Baso % (Auto) (0.0-1.0) % PT (9.0-12.0) SEC INR (0.9-1.2) APTT (22.0-34.0) SEC Sodium (135-145) mmol/L Potassium (3.6-5.0) mmol/L Chloride (101-111) mmol/L Carbon Dioxide (21.0-31.0) mmol/L Anion Gap BUN (7-18) mg/dL Creatinine (0.6-1.3) mg/dL Est Cr Clr Drug Dosing mL/min Estimated GFR (MDRD) BUN/Creatinine Ratio Glucose (74-105) mg/dL Calcium (8.4-10.2) mg/dl Magnesium (1.8-2.5) mg/dL Total Bilirubin (0.2-1.0) mg/dL GGT (7-64) IU/L AST (10-42) IU/L ALT (10-60) IU/L Alkaline Phosphatase (42-121) IU/L Troponin I (0.00-0.02) ng/ml B-Natriuretic Peptide (0-100) pg/ml Total Protein (6.7-8.2) g/dl Albumin (3.2-5.5) g/dl Globulin Albumin/Globulin Ratio Urine Color Straw (YELLOW) Urine Appearance Clear (CLEAR) Urine pH 5.0 (5.0-9.0) Ur Specific [place] 1.025 (1.005-1.030) Urine Protein 100 H (NEGATIVE) Urine Glucose (UA) Negative (NEGATIVE) Urine Ketones Negative (NEGATIVE) Urine Occult Blood Negative (NEGATIVE) Urine Nitrite Negative (NEGATIVE) Urine Bilirubin Moderate H (NEGATIVE) Urine Urobilinogen 4.0 H (0.2-1.0) mg/dL Ur Leukocyte Esterase Negative (NEGATIVE) Urine RBC Not seen /HPF Urine WBC 0-5 (0-5/HPF) /HPF Ur Epithelial Cells Few /HPF Amorphous Sediment Not seen (0/HPF) /HPF Urine Bacteria Rare (0-FEW/HPF) /HPF Urine Mucus Many H /LPF Urine Opiates Screen Positive H (NEGATIVE) Ur Oxycodone Screen Positive H (NEGATIVE) Urine Methadone Screen Negative (NEGATIVE) Ur Barbiturates Screen Negative (NEGATIVE) U Tricyclic Antidepress Negative (NEGATIVE) Ur Phencyclidine Scrn Negative (NEGATIVE) Ur Amphetamine Screen Negative (NEGATIVE) U Methamphetamines Scrn Positive H (NEGATIVE) Urine MDMA Screen Negative (NEGATIVE) U Benzodiazepines Scrn Negative (NEGATIVE) Urine Cocaine Screen Negative (NEGATIVE) U Marijuana (THC) Screen Positive H (NEGATIVE) Ethyl Alcohol mg/dL Meds: Medications Generic Name Dose Route Start Last Admin Trade Name Freq PRN Reason Stop Dose Admin Sodium Chloride 10 ml 10/18/17 10:51 10/18/17 11:16 Saline Flush FLUSH 10 ml ASDIRECTED PRN Administration Keep Vein Open Discontinued Medications Generic Name Dose Route Start Last Admin Trade Name Freq PRN Reason Stop Dose Admin Furosemide 20 mg 10/18/17 10:51 10/18/17 11:13 Lasix IVPUSH 10/18/17 10:52 20 mg ONETIME ONE Administration Thiamine HCl 100 mg/ Sodium 101 mls @ 202 mls/hr 10/18/17 10:52 10/18/17 11: 17 Chloride IV 10/18/17 10:53 202 mls/hr ONETIME ONE Administration Lorazepam 1 mg 10/18/17 10:52 10/18/17 11:09 Ativan IVPUSH 10/18/17 10:53 1 mg ONETIME ONE Administration - Radiology Interpretation Free Text/Narrative:: Chest x-ray: Chronic cardiomegaly. Pulmonary vascular congestion. Atelectasis. See rad report. Departure - Departure Time of Disposition: 12:04 ((Admit to Dr. Amaya)) Disposition: Admitted As Inpatient 68 Condition: Serious Clinical Impression: Alcohol abuse, Polysubstance abuse, Methamphetamine abuse Acute exacerbation of CHF (congestive heart failure) Qualifiers: Heart failure type: unspecified Qualified Code(s): I50.9 - Heart failure, unspecified Alcohol withdrawal Qualifiers: Complication of substance-induced condition: uncomplicated Qualified Code(s): F10.230 - Alcohol dependence with withdrawal, uncomplicated Liver failure Qualifiers: Liver failure chronicity: unspecified chronicity Hepatic coma status: without hepatic coma Qualified Code(s): K72.90 - Hepatic failure, unspecified without coma - Discharge Information Forms: ED Department Discharge - My Orders Last 24 Hours: My Active Orders 10/18/17 10:50 EKG 12 Lead [EKG Documentation Completion] [RC] STAT Peripheral IV Insertion Adult [OM.PC] Stat 10/18/17 10:51 Peripheral IV Care [RC] . DIRECTED Chest 1V Frontal [CR] Stat Sodium Chloride 0.9% [Saline Flush] 10 ml FLUSH ASDIRECTED PRN 10/18/17 11:32 DRUG SCREEN URINE BIORAD [URCHEM] Stat UA W/MICROSCOPIC [URIN] Stat - Assessment/Plan Last 24 Hours: My Active Orders 10/18/17 10:50 EKG 12 Lead [EKG Documentation Completion] [RC] STAT Peripheral IV Insertion Adult [OM.PC] Stat 10/18/17 10:51 Peripheral IV Care [RC] . DIRECTED Chest 1V Frontal [CR] Stat Sodium Chloride 0.9% [Saline Flush] 10 ml FLUSH ASDIRECTED PRN 10/18/17 11:32 DRUG SCREEN URINE BIORAD [URCHEM] Stat UA W/MICROSCOPIC [URIN] Stat I have read and agree with the documentation that has been completed regarding this visit. By signing this record, I attest that the documentation was completed in my physical presence and is an accurate record of the encounter.
[2017-10-18] MEDS ORDERED: Ondansetron 4 MG/2 ML SDV IVPUSH PRN (14:23)
[2017-10-18] MEDS: Potassium Chloride 10 MEQ Tab.ER PO SCH ×2 (14:36→17:25)
[2017-10-18] MEDS: Furosemide 100 MG/10 ML SDV IVPUSH SCH (14:36)
--- NOTE | 2017-10-18 15:07 | HP ---
CHIEF COMPLAINT: Increasing shortness of breath. HISTORY OF PRESENTING ILLNESS: Mr. Sachi Guillen is a 52-year-old male with medical history significant for hypertension, hyperlipidemia, history of chronic alcohol use, chronic tobacco use, nonischemic cardiomyopathy, history of liver cirrhosis, chronic obstructive pulmonary disease, polysubstance abuse including marijuana and methamphetamine, presented to the ER with complaints of increasing shortness of breath. The patient claims that for the last 3 to 4 days, the patient has been nausea and vomiting, at least 3 to 4 episodes of vomiting, which is biliary stain, no blood seen in the vomitus, so was not able to take any of his pills in the last 2 to 3 days. He denies any diarrhea, complains of abdominal discomfort from nausea and vomiting, complains of mild chest discomfort, also complains of increasing shortness of breath, grades it as 4 to 5/10 in intensity, which gets aggravated on ambulation, relieved with rest, not associated with any fevers or chills in the last few days. No complaints of cough with sputum in the last few days. The patient continues to smoke and drink alcohol. His last methamphetamine use was of one week back as per the patient. The patient complains of having chest discomfort on exertion and also dyspnea on exertion. Denies any orthopnea or paroxysmal nocturnal dyspnea. The patient denied any history of hematemesis, hematochezia, or melenic stools. Normal bowel and bladder habits otherwise. REVIEW OF SYSTEMS: A complete review of system including skin, ear, nose, and throat, cardiovascular system, respiratory system, gastrointestinal system, genitourinary system, hematology, oncology, neurology, allergy, immunology, constitutional were all evaluated and were negative except for the above-said notes. PAST MEDICAL HISTORY: Significant for hypertension, hyperlipidemia, nonischemic cardiomyopathy, history of chronic congestive heart failure, systolic and diastolic dysfunction, history of marijuana use, methamphetamine abuse, chronic alcohol use, chronic tobacco use. PAST SURGICAL HISTORY: Significant for cardiac pacemaker placement, lipoma resection. FAMILY HISTORY: Significant for diabetes and heart disease in his father, and heart disease in his paternal grandmother and diabetes. SOCIAL HISTORY: 1. Chronic history of tobacco smoking. 2. Chronic history of alcohol intake. 3. Marijuana and methamphetamine abuse. ALLERGIES: No known drug allergies. MEDICATIONS: Home medications include: 1. Oxycodone-acetaminophen one tablet every 6 hours as needed for pain. 2. Spironolactone 25 mg daily. 3. Potassium chloride 20 mEq daily. 4. Protonix 40 mg daily. 5. Lisinopril 2.5 mg daily. 6. Lasix 80 mg twice a day. 7. Digoxin 0.25 mg daily. 8. Coreg 3.125 mg twice a day. 9. Xanax 0.25 mg daily. PHYSICAL EXAMINATION: Vital Signs: Temperature of 97.8, pulse of 66, blood pressure 110/83, respiratory rate of 16, saturating 100%. General Appearance: The patient is well oriented to time, place, and person. Follows commands spontaneously. Cardiovascular System: S1, S2 heard with normal intensity. Grade 3/6 systolic murmur appreciated. Gallop present. Respiratory System: Bilateral crepitations noted. No wheeze. Abdomen: Soft. Bowel sounds positive. Mild tenderness in the right upper quadrant. No rigidity. No guarding. No rebound tenderness. Extremities: No edema in bilateral lower extremities. Neurologic: No gross focal neurological deficits. LABORATORY DATA: 1. WBC 5, hemoglobin 11.7, hematocrit 36.9, platelet count 188. 2. INR 1.5, PT 15.2. 3. Sodium 137, potassium 3.7, chloride 104, bicarb 22, BUN 12, creatinine 0.8, glucose 138, calcium 8.6, magnesium 1.5. Total bilirubin 3.8, AST 70, ALT 271, alkaline phosphorus 110, troponin 0.03, B-natriuretic peptide 3930. 4. Urine toxicology screen positive for opiates, positive for oxycodone, positive for methamphetamine and marijuana. Ethyl alcohol is less than 5. ASSESSMENT: 1. [id number] congestive heart failure with systolic and diastolic dysfunction with recent ejection fraction of less than 25%. 2. Valvular heart disease. 3. Hypertension. 4. Hyperlipidemia. 5. Chronic alcohol use. 6. Chronic tobacco use. 7. Chronic methamphetamine and marijuana abuse. 8. Nausea and vomiting. 9. Elevated liver function test. 10.Chronic obstructive pulmonary disease. PLAN: 1. [id number] congestive heart failure. The patient presents with increasing shortness of breath. He is noted to have crackles to the lung exam. His recent ejection fraction is noted to be less than 25%. He is noted to have global hypokinesis of the left ventricle. The patient has very poor prognosis. The patient will be admitted to the hospital. We will have him on IV Lasix and closely monitor input, output, and daily weights. We will recheck a BMP in a.m. 2. Hypertension. The patient's blood pressure seems to be on the borderline. Continue with current antihypertensive medication. Avoid any hypotensive episodes. Try to maintain euvolemic status. 3. Substance abuse. The patient continues to have alcohol, tobacco, marijuana, and methamphetamine abuse. The patient is educated about alcohol and tobacco cessation and stop abusing methamphetamine. He was explained about ill effects of drug abuse on his health including increased morbidity and mortality if he continues to do so, which he understands and verbalized the same. We will have him on CIWA protocol while in the hospital. 4. Deep venous thrombosis prophylaxis. We will have him on Lovenox for deep venous thrombosis prophylaxis. 5. Hypokalemia. We will replace with oral potassium chloride. 6. Code status. The patient wants to be full code. Discussed with Dr. Olson, ER physician regarding the plan of care. Reviewed the labs and medications. Reviewed the old charts. MOD[facility] /[id number]
[2017-10-18] MEDS: Carvedilol 3.125 MG Tab PO SCH (17:25)
[2017-10-18] MEDS: LORazepam 0.5 MG Tab PO PRN ×2 (17:25→23:27)
[2017-10-18] MEDS: Ondansetron 4 MG Tab.DIS PO PRN (18:17)
[2017-10-18] MEDS ORDERED: Thiamine 100 MG Tab PO SCH (21:00)
[2017-10-19] MEDS: Ondansetron 4 MG Tab.DIS PO PRN ×3 (01:02→17:38)
[2017-10-19] MEDS: LORazepam 0.5 MG Tab PO PRN ×3 (05:33→17:38)
[2017-10-19 06:54] LABS: ANION GAP 13.9; CHLORIDE,CL 105 mmol/L (101-111); SODIUM,NA 136 mmol/L (135-145)
[2017-10-19] MEDS: Potassium Chloride 10 MEQ Tab.ER PO SCH ×2 (08:58→17:38)
[2017-10-19] MEDS: Furosemide 100 MG/10 ML SDV IVPUSH SCH ×2 (08:59→14:54)
[2017-10-19] MEDS ORDERED: ALPRAZolam 0.25 MG Tab PO SCH (09:00)
[2017-10-19] MEDS ORDERED: Pantoprazole 40 MG Tab.CR PO SCH (09:00)
[2017-10-19] MEDS ORDERED: Enoxaparin 40 MG/0.4 ML Syringe SUBCUT SCH (09:00)
[2017-10-19] MEDS ORDERED: Spironolactone 25 MG Tab PO SCH (09:00)
[2017-10-19] MEDS ORDERED: Digoxin 250 MCG Tab PO SCH (09:00)
[2017-10-19] MEDS ORDERED: Formoterol/Mometasone 200-5 MCG 8.8 GM Inhaler IH SCH (09:00)
[2017-10-19] MEDS: Carvedilol 3.125 MG Tab PO SCH ×2 (09:00→18:47)
[2017-10-19] MEDS ORDERED: Lisinopril 5 MG Tab PO SCH (09:00)
[2017-10-19] MEDS ORDERED: Magnesium Sulfate/Water 2 GM in Premix Bag 1 BAG IV ONE (10:53)
--- NOTE | 2017-10-19 14:41 | PN ---
DATE: 10/19/2017 SUBJECTIVE: Mr. Sachi Guillen is a 52-year-old male with a medical history significant for hypertension, hyperlipidemia, chronic history of alcohol use, tobacco use, chronic history of methamphetamine use, and polysubstance abuse presented to the ER with complaints of increasing shortness of breath and was noted to be in acute on chronic congestive heart failure secondary to systolic and diastolic dysfunction. For the last 24 hours, the patient keeps asking for opiate pain medications and for benzodiazepines. He claims that he is in anxious state. The patient complains of shortness of breath this morning, aggravated on exertion, relieved with rest and complains that he is unable to sleep at night. REVIEW OF SYSTEMS: Cardiovascular, respiratory, gastrointestinal, neurology, constitutional were all evaluated. PHYSICAL EXAMINATION: Vitals Signs: Temperature 97.2, pulse of 102, blood pressure of 116/82, respiratory rate of 20, and saturating at 96% on room air. General Appearance: The patient is well oriented to time, place, and person. Follows commands spontaneously. Cardiovascular System: S1, S2 heard with normal intensity. No gallops. Respiratory System: Clear to auscultation bilaterally. No wheeze. Mild crepitations at the bases. Abdomen: Soft. Bowel sounds positive. Nontender. No rigidity. No guarding. No rebound tenderness. Extremities: No edema bilateral lower extremities. MEDICATIONS: Reviewed. 1. Continue with Xanax 0.25 mg daily. 2. Coreg 3.125 mg twice a day. 3. Digoxin 250 mcg daily. 4. Lovenox 40 mg subcutaneous daily. 5. Lasix 60 mg IV q.12 hourly. 6. Lisinopril 2.5 mg daily. 7. Ativan 0.5 mg every 6 hours as needed for anxiety. 8. Magnesium oxide 250 mg twice a day. 9. Zofran 4 mg every 4 hours as needed for nausea and vomiting. 10.Potassium chloride 20 mEq twice a day. 11.Protonix 40 mg daily. 12.Spironolactone 25 mg daily. 13.Thiamine 100 mg at bedtime. LABORATORY DATA: Reviewed. Sodium 136, potassium 3.9, chloride 105, bicarb 21, BUN 16, creatinine 0.9, and glucose 126. Magnesium 1.6. Total bilirubin 2.9, AST 57, ALT 232, and alkaline phosphatase 130. ASSESSMENT: 1. [id number] congestive heart failure secondary to systolic dysfunction with ejection fraction less than 25%. 2. Valvular heart disease. 3. Hypertension. 4. Hyperlipidemia. 5. Chronic alcohol use. 6. Chronic tobacco use. 7. Chronic methamphetamine and marijuana abuse. 8. Elevated liver function test. 9. Chronic obstructive pulmonary disease. PLAN: 1. Acute on chronic congestive heart failure. The patient has non-ischemic cardiomyopathy and the patient continues to abuse methamphetamine, marijuana, tobacco, and alcohol all which could contribute to his cardiomyopathy. The patient was explained about ill effects of drinking alcohol and abusing drugs on his health and his heart condition, which he understands and verbalized the same. We will continue with current dose of IV Lasix, closely monitor input, output, and daily weight. 2. Hypertension. The patient's blood pressure seems to be in acceptable range. Continue with lisinopril and Coreg. 3. DVT prophylaxis. Continue with Lovenox for DVT prophylaxis. 4. Anxiety. The patient is currently on lorazepam 0.5 mg every 6 hours as needed for anxiety. The patient was explained about elevated LFTs and ill effects of benzodiazepines on his health, which he understands and verbalized the same. 5. Hypokalemia. We will replace with oral potassium chloride. 6. We will get a BNP in a.m. and we will also follow with a troponin at this time. 7. Hypomagnesemia. We will replace with oral magnesium oxide and give him 1 g of IV magnesium secondary to his cardiomyopathy. We will recheck a magnesium in a.m. [facility] /[id number]
[2017-10-19] MEDS: Sodium Chloride 0.9% 10 ML Syringe FLUSH PRN (14:55)
[2017-10-19 18:48] VITALS: BP 86/55
[2017-10-19] MEDS ORDERED: Potassium Chloride 10 MEQ Tab.ER PO ONE (18:56)
--- NOTE | 2017-10-20 09:42 | DISCH ---
ADMITTING DIAGNOSES: 1. Jthri-[id number]-[id number] congestive heart failure with systolic dysfunction with ejection fraction of less than 25%. 2. Valvular heart disease. 3. Chronic methamphetamine use and marijuana abuse. 4. Chronic alcohol use. 5. Chronic tobacco use. DISCHARGE DIAGNOSES: 1. Btvxn-sl-acldhac congestive heart failure with systolic dysfunction. 2. Hypokalemia. 3. Hypomagnesemia. 4. Illicit drug abuse. 5. Hypotension. HISTORY OF PRESENT ILLNESS: Mr. Jonathan Karimi is a 52-year-old male with medical history significant for hypertension, hyperlipidemia, history of chronic alcohol use, chronic tobacco use, non-ischemic cardiomyopathy, history of liver cirrhosis, chronic obstructive pulmonary disease, polysubstance abuse including marijuana and methamphetamine, admitted to the hospital with complaints of increasing shortness of breath. His recent echocardiogram showed evidence of decreased ejection fraction to less than 25%. The patient was treated with IV Lasix 60 mg q.12 hourly. He had good urine output. Later in the afternoon evening, the patient started developing low blood pressure and had a mild episode of chest discomfort. A repeat troponin is at 0.04, but repeat lab shows hypokalemia with potassium of 3.4. He will require 40 mEq of oral potassium. He was also replaced with IV magnesium, and magnesium is within normal limits. As he continues to have chest discomfort and low blood pressure, the patient will need a higher level of care with cardiology consultation and with close monitoring in the Progressive Care Unit. He is being discharged to [facility] for further treatment cares. He will require ambulance for his cardiac history. DISCHARGE MEDICATIONS: Include: 1. Xanax 0.25 mg daily. 2. Coreg 3.125 mg twice a day. 3. Digoxin 0.25 mg daily. 4. Advair Diskus inhalation 1 puff daily. 5. Lasix 80 mg twice a day. 6. Lisinopril 2.5 mg daily. 7. Protonix 40 mg daily. 8. Potassium chloride 20 mEq daily. 9. Spironolactone 25 mg daily. PHYSICAL EXAMINATION: On discharge: Vital Signs: Temperature of 97.5, pulse of 92, blood pressure of 92/86, respiratory rate of 20, and saturating at 92%. General Appearance: The patient is well oriented to time, place, and person. Follows commands spontaneously. Cardiovascular System: S1 and S2 heard with normal intensity. No gallops. Respiratory System: Clear to auscultation bilaterally. No wheeze. No crepitations. Abdomen: Soft. Bowel sounds positive. Nontender. No rigidity. No guarding. No rebound tenderness. Extremities: No edema in bilateral lower extremities. CONDITION ON ADMISSION: Poor. CONDITION ON DISCHARGE: Stable. DISPOSITION: Discharged to [facility], [facility] level of care, for cardiology evaluation and treatment. DIET: Cardiac healthy diet. ACTIVITY: As tolerated. FOLLOWUP: Follow up with primary care physician upon discharge from [facility]. TIME SPENT: Spent over 35 minutes of time in evaluating and treating this patient and making discharge plans. [facility] /[id number]
[2017-10-20] MEDS ORDERED: Potassium Chloride 10 MEQ Tab.ER PO ONE (19:00)
--- NOTE | 2017-10-21 09:05 | EKG ---
10/18/2017- MANNIE MEREDITH - FINDINGS: A 12-lead EKG shows normal sinus rhythm with multiple PVCs noted. No significant ST elevation or ST depression noted. Nonspecific ST-T wave changes noted on leads V2 and V3. [facility] /[id number]
== END 2017-10-19 19:46 | DRG 293 ==
LOC: DL.ED 10:35 → UNDOADMIN 13:19 → DL.MS 13:19
PROVIDERS: ADMIT Internal Medicine; ATTEND Internal Medicine
DX: I11.0 Hypertensive heart disease with heart failure (principal); I42.8 Other cardiomyopathies; I50.43 Acute on chronic combined systolic (congestive) and diastolic (congestive) heart failure; E78.5 Hyperlipidemia, unspecified; J44.9 Chronic obstructive pulmonary disease, unspecified; F17.210 Nicotine dependence, cigarettes, uncomplicated; E87.6 Hypokalemia; F15.10 Other stimulant abuse, uncomplicated; F12.10 Cannabis abuse, uncomplicated; F10.10 Alcohol abuse, uncomplicated; E83.42 Hypomagnesemia; Y90.0 Blood alcohol level of less than 20 mg/100 ml; F41.9 Anxiety disorder, unspecified; R94.5 Abnormal results of liver function studies; Z95.0 Presence of cardiac pacemaker; Z79.899 Other long term (current) drug therapy
CPT/HCPCS: 36415; 71045; 80048; 80053; 80076; 80162; 80305-QW; 81001; 82977; 83735; 83880; 84100; 84132; 84484; 85025; 85610; 85730; 93005; 96365; 96375; 99285; A9270-GY; G0480; J1650; J1940; J2060; J3411; J3475; J7030; J7050

== ENCOUNTER 2017-11-05 09:56 | Observation (INO) | payer MEDICAID ==
--- NOTE | 2017-11-05 10:18 | EDM.PDOC ---
ED HPI GENERAL MEDICAL PROBLEM - General Chief Complaint: Respiratory Problem Stated Complaint: IN BY AMBULANCE SOB Time Seen by Provider: 11/05/17 10:18 Source of Information: Reports: Patient, EMS, EMS Notes Reviewed, RN, RN Notes Reviewed - History of Present Illness INITIAL COMMENTS - FREE TEXT/NARRATIVE: Pt to ER per [facility] with c/o weakness and feeling shaky for about 1 week. He states he has been drinking alcohol and using meth for the past week. States he has not been taking his medications as prescribed. Onset: Gradual - Related Data Allergies Allergy/AdvReac Type Severity Reaction Status Date / Time No Known Allergies Allergy Verified 11/05/17 12:39 Home Meds: Home Meds Carvedilol [Coreg] 3.125 mg PO BIDMEALS 10/18/15 [History] Lisinopril 2.5 mg PO DAILY #30 04/20/17 [Rx] Potassium Chloride [Klor-Con 10] 20 meq PO DAILY #30 tab.er 04/20/17 [Rx] Spironolactone [Aldactone] 25 mg PO DAILY 30 Days #30 tablet 04/20/17 [Rx] ALPRAZolam [Xanax] 0.25 mg PO DAILY 07/31/17 [History] Digoxin 0.25 mg PO DAILY 07/31/17 [History] Fluticasone/Salmeterol [Advair 250-50 Diskus] 1 puff INH DAILY 07/31/17 [History ] Pantoprazole Sodium [Protonix] 40 mg PO DAILY 07/31/17 [History] Furosemide [Lasix] 80 mg PO BID 08/20/17 [History] Past Medical History - Past Health History Medical/Surgical History: Denies Medical/Surgical History HEENT History: Reports: None Cardiovascular History: Reports: Blood Clots/VTE/DVT, Cardiomyopathy, Heart Failure, Hypertension, SOB on Exertion Respiratory History: Reports: SOB Gastrointestinal History: Reports: Cirrhosis, Gastritis, GERD Genitourinary History: Reports: Other (See Below) Other Genitourinary History: liver issues r/t ETOH Musculoskeletal History: Reports: Arthritis, Other (See Below) Other Musculoskeletal History: torn left and right upper arm tendon. missed surgery 03/2017 Neurological History: Reports: None Psychiatric History: Reports: Addiction, Anxiety, Depression, Panic Attack Other Psychiatric History: ETOH treatment last approx 10 years ago Endocrine/Metabolic History: Reports: None Hematologic History: Reports: None Immunologic History: Reports: None Oncologic (Cancer) History: Reports: None Dermatologic History: Reports: None - Infectious Disease History Infectious Disease History: Reports: None - Past Surgical History Head Surgeries/Procedures: Reports: None Cardiovascular Surgical History: Reports: AICD, Percutaneous Transluminal Angioplasty Respiratory Surgical History: Reports: None GI Surgical History: Reports: None Male Surgical History: Reports: None Neurological Surgical History: Reports: None Musculoskeletal Surgical History: Reports: None Social & Family History - Family History Family Medical History: Unobtainable Cardiac: Reports: Hypertension Other Cardiac Family History: Dad and paternal grandmother have hypertension. Respiratory: Reports: Asthma Other Respiratory Family Hisory: Mom and dad have asthma. Endocrine/Metabolic: Reports: Diabetes, Type I Other Endocrine/Metabolic Family History: Dad and paternal grandmother have type I diabetes. - Caffeine Use Caffeine Use: Reports: Coffee, Tea - Living Situation & Occupation Living situation: Reports: with Family Occupation: Unemployed ED ROS GENERAL - Review of Systems Review Of Systems: ROS reveals no pertinent complaints other than HPI. ED EXAM, GENERAL - Physical Exam Exam: See Below Exam Limited By: No Limitations General Appearance: Alert, WD/WN, Mild Distress Eye Exam: Bilateral Eye: EOMI, Normal Inspection Ears: Normal External Exam, Hearing Grossly Normal Nose: Normal Inspection Throat/Mouth: Normal Inspection, Normal Voice, No Airway Compromise Head: Atraumatic, Normocephalic Neck: Normal Inspection, Supple, Non-Tender, Full Range of Motion Respiratory/Chest: Decreased Breath Sounds, Crackles, Rhonchi, Wheezing Cardiovascular: Normal Peripheral Pulses, Regular Rate, Rhythm, No Edema, No Gallop, No JVD, No Murmur, No Rub Peripheral Pulses: 2+: Radial (L), Radial (R) GI/Abdominal: Normal Bowel Sounds, Soft, Non-Tender (Male) Exam: Deferred Rectal (Males) Exam: Deferred Back Exam: Normal Inspection, Full Range of Motion Extremities: Normal Inspection, Normal Range of Motion, Non-Tender, No Pedal Edema, Normal Capillary Refill Neurological: Alert, Oriented, CN II-XII Intact, Normal Cognition, Normal Gait, Normal Reflexes, No Motor/Sensory Deficits Psychiatric: Anxious Skin Exam: Warm, Dry, Intact, Normal Color, No Rash Lymphatic: No Adenopathy EKG INTERPRETATION EKG Date: 11/05/17 Time: 10:26 Rhythm: Other (ventricular paced rhythm) Rate (Beats/Min): 101 Course - Vital Signs Last Recorded V/S: Last Vital Signs Temp 97.6 F 11/05/17 16:00 Pulse 56 L 11/05/17 16:00 Resp 20 11/05/17 16:00 BP 107/76 11/05/17 16:00 Pulse Ox 95 11/05/17 16:00 - Orders/Labs/Meds Orders: Active Orders 24 hr Category Date Time Status EKG Documentation Completion [RC] STAT Care 11/05/17 10:18 Active RT Aerosol Therapy [RC] ASDIRECTED Care 11/05/17 13:20 Active DRUG SCREEN URINE BIORAD [URCHEM] Stat Lab 11/05/17 11:55 Ordered UA W/MICROSCOPIC [URIN] Stat Lab 11/05/17 11:55 Ordered ALPRAZolam [Xanax] Med 11/06/17 09:00 Active 0.25 mg PO DAILY Albuterol/Ipratropium [DuoNeb 3.0-0.5 MG/3 ML] Med 11/05/17 15:00 Active 3 ml NEB TIDRT Budesonide [Pulmicort] Med 11/05/17 18:00 Active 0.5 mg NEB BIDRT Carvedilol [Coreg] Med 11/05/17 18:00 Active 3.125 mg PO BIDMEALS Digoxin [Lanoxin] Med 11/06/17 09:00 Active 250 mcg PO DAILY Furosemide [Lasix] Med 11/05/17 14:00 Active 80 mg PO BIDDIURETIC LORazepam [Ativan] Med 11/05/17 13:21 Active 1 mg IVPUSH Q4H PRN Lisinopril [Prinivil] Med 11/06/17 09:00 Active 2.5 mg PO DAILY Pantoprazole [ProTONIX] Med 11/06/17 06:00 Active 40 mg PO ACBRK Potassium Chloride [Klor-Con 10] Med 11/06/17 14:00 Once 40 meq PO ONETIME ONE Spironolactone [Aldactone] Med 11/06/17 09:00 Active 25 mg PO DAILY Medication Orders Acetaminophen (Tylenol) 650 mg PO Q4H PRN PRN Reason: Pain (Mild 1-3)/fever Albuterol/Ipratropium (Duoneb 3.0-0.5 Mg/3 Ml) 3 ml NEB TIDRT [facility] Last Admin: 11/05/17 14:00 Dose: 3 ml Alprazolam (Xanax) 0.25 mg PO DAILY [facility] Budesonide (Pulmicort) 0.5 mg NEB BIDRT [facility] Last Admin: 11/05/17 17:51 Dose: 0.5 mg Carvedilol (Coreg) 3.125 mg PO BIDMEALS [facility] Digoxin (Lanoxin) 250 mcg PO DAILY [facility] Furosemide (Lasix) 80 mg PO BIDDIURETIC [facility] Last Admin: 11/05/17 13:44 Dose: 80 mg Heparin Sodium (Porcine) (Heparin Sodium) 5,000 units SUBCUT Q8HR [facility] Last Admin: 11/05/17 13:42 Dose: 5,000 units Lisinopril (Prinivil) 2.5 mg PO DAILY [facility] Lorazepam (Ativan) 1 mg IVPUSH Q4H PRN PRN Reason: Agitation Last Admin: 11/05/17 14:05 Dose: 1 mg Ondansetron HCl (Zofran Odt) 4 mg PO Q4H PRN PRN Reason: nausea, able to take PO Last Admin: 11/05/17 16:12 Dose: 4 mg Pantoprazole Sodium (Protonix) 40 mg PO ACBRK [facility] Potassium Chloride (Klor-Con 10) 40 meq PO ONETIME ONE Stop: 11/06/17 14:01 Sodium Chloride (Saline Flush) 10 ml FLUSH ASDIRECTED PRN PRN Reason: Keep Vein Open Spironolactone (Aldactone) 25 mg PO DAILY [facility] Zolpidem Tartrate (Ambien) 5 mg PO BEDTIME PRN PRN Reason: Sleep Labs: Laboratory Tests 11/05/17 11/05/17 11/05/17 Range/Units 10:27 10:27 11:55 WBC 5.1 (5.0-10.0) 10^3/uL RBC 4.26 L (4.6-6.2) 10^6/uL Hgb 11.8 L (14.0-18.0) g/dL Hct 37.8 L (40.0-54.0) % MCV 88.7 (80-100) fL MCH 27.7 (27.0-34.0) pg MCHC 31.2 L (33.0-35.0) g/dL Plt Count 267 D (150-450) 10^3/uL Neut % (Auto) 67.1 (42.2-75.2) % Lymph % (Auto) 17.7 L (20.5-50.1) % [place] % (Auto) 10.9 H (2-8) % Eos % (Auto) 3.5 H (1.0-3.0) % Baso % (Auto) 0.8 (0.0-1.0) % Sodium 138 (135-145) mmol/L Potassium 3.2 L (3.6-5.0) mmol/L Chloride 103 (101-111) mmol/L Carbon Dioxide 25.0 (21.0-31.0) mmol/L Anion Gap 13.2 BUN 10 (7-18) mg/dL Creatinine 0.8 (0.6-1.3) mg/dL Est Cr Clr Drug Dosing TNP Estimated GFR (MDRD) > 60 BUN/Creatinine Ratio 12.50 Glucose 99 (74-105) mg/dL Calcium 8.7 (8.4-10.2) mg/dl Magnesium 1.5 L (1.8-2.5) mg/dL Total Bilirubin 2.6 H (0.2-1.0) mg/dL AST 31 (10-42) IU/L ALT 18 (10-60) IU/L Alkaline Phosphatase 92 (42-121) IU/L Troponin I 0.03 H* (0.00-0.02) ng/ml B-Natriuretic Peptide 2240 H (0-100) pg/ml Total Protein 7.4 (6.7-8.2) g/dl Albumin 3.5 (3.2-5.5) g/dl Globulin 3.9 Albumin/Globulin Ratio 0.90 Urine Color [place] (YELLOW) Urine Appearance Turbid (CLEAR) Urine pH 5.5 (5.0-9.0) Ur Specific [place] >= 1.030 (1.005-1.030) Urine Protein 100 H (NEGATIVE) Urine Glucose (UA) Negative (NEGATIVE) Urine Ketones 15 H (NEGATIVE) Urine Occult Blood Trace-intact H (NEGATIVE) Urine Nitrite Negative (NEGATIVE) Urine Bilirubin Moderate H (NEGATIVE) Urine Urobilinogen 1.0 (0.2-1.0) mg/dL Ur Leukocyte Esterase Negative (NEGATIVE) Urine RBC 0-5 /HPF Urine WBC Not seen (0-5/HPF) /HPF Ur Epithelial Cells Occasional /HPF Amorphous Sediment Many (0/HPF) /HPF Urine Opiates Screen (NEGATIVE) Ur Oxycodone Screen (NEGATIVE) Urine Methadone Screen (NEGATIVE) Ur Barbiturates Screen (NEGATIVE) U Tricyclic Antidepress (NEGATIVE) Ur Phencyclidine Scrn (NEGATIVE) Ur Amphetamine Screen (NEGATIVE) U Methamphetamines Scrn (NEGATIVE) Urine MDMA Screen (NEGATIVE) U Benzodiazepines Scrn (NEGATIVE) Urine Cocaine Screen (NEGATIVE) U Marijuana (THC) Screen (NEGATIVE) Ethyl Alcohol < 5 mg/dL 11/05/17 Range/Units 11:55 WBC (5.0-10.0) 10^3/uL RBC (4.6-6.2) 10^6/uL Hgb (14.0-18.0) g/dL Hct (40.0-54.0) % MCV (80-100) fL MCH (27.0-34.0) pg MCHC (33.0-35.0) g/dL Plt Count (150-450) 10^3/uL Neut % (Auto) (42.2-75.2) % Lymph % (Auto) (20.5-50.1) % [place] % (Auto) (2-8) % Eos % (Auto) (1.0-3.0) % Baso % (Auto) (0.0-1.0) % Sodium (135-145) mmol/L Potassium (3.6-5.0) mmol/L Chloride (101-111) mmol/L Carbon Dioxide (21.0-31.0) mmol/L Anion Gap BUN (7-18) mg/dL Creatinine (0.6-1.3) mg/dL Est Cr Clr Drug Dosing Estimated GFR (MDRD) BUN/Creatinine Ratio Glucose (74-105) mg/dL Calcium (8.4-10.2) mg/dl Magnesium (1.8-2.5) mg/dL Total Bilirubin (0.2-1.0) mg/dL AST (10-42) IU/L ALT (10-60) IU/L Alkaline Phosphatase (42-121) IU/L Troponin I (0.00-0.02) ng/ml B-Natriuretic Peptide (0-100) pg/ml Total Protein (6.7-8.2) g/dl Albumin (3.2-5.5) g/dl Globulin Albumin/Globulin Ratio Urine Color (YELLOW) Urine Appearance (CLEAR) Urine pH (5.0-9.0) Ur Specific [place] (1.005-1.030) Urine Protein (NEGATIVE) Urine Glucose (UA) (NEGATIVE) Urine Ketones (NEGATIVE) Urine Occult Blood (NEGATIVE) Urine Nitrite (NEGATIVE) Urine Bilirubin (NEGATIVE) Urine Urobilinogen (0.2-1.0) mg/dL Ur Leukocyte Esterase (NEGATIVE) Urine RBC /HPF Urine WBC (0-5/HPF) /HPF Ur Epithelial Cells /HPF Amorphous Sediment (0/HPF) /HPF Urine Opiates Screen Negative (NEGATIVE) Ur Oxycodone Screen Positive H (NEGATIVE) Urine Methadone Screen Negative (NEGATIVE) Ur Barbiturates Screen Negative (NEGATIVE) U Tricyclic Antidepress Negative (NEGATIVE) Ur Phencyclidine Scrn Negative (NEGATIVE) Ur Amphetamine Screen Positive H (NEGATIVE) U Methamphetamines Scrn Positive H (NEGATIVE) Urine MDMA Screen Positive H (NEGATIVE) U Benzodiazepines Scrn Positive H (NEGATIVE) Urine Cocaine Screen Negative (NEGATIVE) U Marijuana (THC) Screen Positive H (NEGATIVE) Ethyl Alcohol mg/dL Meds: Medications Generic Name Dose Route Start Last Admin Trade Name Freq PRN Reason Stop Dose Admin Acetaminophen 650 mg 11/05/17 13:22 Tylenol PO Q4H PRN Pain (Mild 1-3)/fever Albuterol/Ipratropium 3 ml 11/05/17 15:00 11/05/17 14:00 Duoneb 3.0-0.5 Mg/3 Ml NEB 3 ml TIDRT ANGELIQUE Administration Alprazolam 0.25 mg 11/06/17 09:00 Xanax PO DAILY ANGELIQUE Budesonide 0.5 mg 11/05/17 18:00 11/05/17 17:51 Pulmicort NEB 0.5 mg BIDRT ANGELIQUE Administration Carvedilol 3.125 mg 11/05/17 18:00 Coreg PO BIDMEALS ANGELIQUE Digoxin 250 mcg 11/06/17 09:00 Lanoxin PO DAILY ANGELIQUE Furosemide 80 mg 11/05/17 14:00 11/05/17 13:44 Lasix PO 80 mg BIDDIURETIC ANGELIQUE Administration Heparin Sodium (Porcine) 5,000 units 11/05/17 14:00 11/05/17 13:42 Heparin Sodium SUBCUT 5,000 units Q8HR ANGELIQUE Administration Lisinopril 2.5 mg 11/06/17 09:00 Prinivil PO DAILY ANGELIQUE Lorazepam 1 mg 11/05/17 13:21 11/05/17 14:05 Ativan IVPUSH 1 mg Q4H PRN Administration Agitation Ondansetron HCl 4 mg 11/05/17 13:22 11/05/17 16:12 Zofran Odt PO 4 mg Q4H PRN Administration nausea, able to take PO Pantoprazole Sodium 40 mg 11/06/17 06:00 Protonix PO ACBRK ANGELIQUE Potassium Chloride 40 meq 11/06/17 14:00 Klor-Con 10 PO 11/06/17 14:01 ONETIME ONE Sodium Chloride 10 ml 11/05/17 13:22 Saline Flush FLUSH ASDIRECTED PRN Keep Vein Open Spironolactone 25 mg 11/06/17 09:00 Aldactone PO DAILY ANGELIQUE Zolpidem Tartrate 5 mg 11/05/17 13:22 Ambien PO BEDTIME PRN Sleep Discontinued Medications Generic Name Dose Route Start Last Admin Trade Name Freq PRN Reason Stop Dose Admin Magnesium Sulfate/Dextrose 1 100 mls @ 100 mls/hr 11/05/17 13:20 11/05/17 15: 14 gm/ Premix IV 11/05/17 14:19 Infused ONETIME ONE Infusion Lorazepam 2 mg 11/05/17 11:50 11/05/17 11:50 Ativan IVPUSH 11/05/17 11:51 Not Given ONETIME ONE - Radiology Interpretation Free Text/Narrative:: Chest xray: Apparent mild cardiovascular decompensation since 18 September 2017 exam. See rad report - Re-Assessments/Exams Free Text/Narrative Re-Assessment/Exam: 11/05/17 18:23 Discussed patient case with Dr. Norris who agreed to accept the patient for observation. Departure - Departure Time of Disposition: 12:21 Disposition: Refer to Observation Condition: Fair Clinical Impression: Alcohol abuse, Drug abuse CHF (congestive heart failure) Qualifiers: Qualified Code(s): I50.9 - Heart failure, unspecified - Discharge Information *PRESCRIPTION DRUG MONITORING PROGRAM REVIEWED*: No *COPY OF PRESCRIPTION DRUG MONITORING REPORT IN PATIENT NIMA: No - My Orders Last 24 Hours: My Active Orders 11/05/17 10:18 EKG Documentation Completion [RC] STAT 11/05/17 11:55 DRUG SCREEN URINE BIORAD [URCHEM] Stat UA W/MICROSCOPIC [URIN] Stat - Assessment/Plan Last 24 Hours: My Active Orders 11/05/17 10:18 EKG Documentation Completion [RC] STAT 11/05/17 11:55 DRUG SCREEN URINE BIORAD [URCHEM] Stat UA W/MICROSCOPIC [URIN] Stat
--- NOTE | 2017-11-05 11:00 | CR ---
Clinical history: 52-year-old male with heart disease and recurrent chest pain. Interpretation: Chronic abnormally enlarged cardiac silhouette. Pacemaker leads intact and unchanged since 18 October and September,. Huge pulmonary artery segments bilaterally and what appears to be some relative increase pulmonary ve nous congestion with cephalization of flow since 18 September exam. No new alveolar edema or dependent ple ural fluid accumulation. No new lung mass, hilar lymphadenopathy or focal lobar hernia. No atelectasis/collapse. No pneumothorax or free subdiaphragmatic air. CONCLUSION: Apparent mild cardiovascular decompensation since 18 September 2017 exam. Clinical? EKG? BNP?
[2017-11-05 11:08] LABS: ANION GAP 13.2; CHLORIDE,CL 103 mmol/L (101-111); SODIUM,NA 138 mmol/L (135-145)
[2017-11-05] MEDS ORDERED: LORazepam 2 MG/ML Syringe IVPUSH ONE (11:50)
[2017-11-05] MEDS ORDERED: Ondansetron 4 MG Tab.DIS PO PRN (13:22)
[2017-11-05] MEDS ORDERED: Acetaminophen 325 MG Tab PO PRN (13:22)
[2017-11-05] MEDS ORDERED: Zolpidem 5 MG Tab PO PRN (13:22)
[2017-11-05] MEDS ORDERED: Sodium Chloride 0.9% 10 ML Syringe FLUSH PRN (13:22)
--- NOTE | 2017-11-05 13:33 | PCM.HP ---
H&P History of Present Illness - General Date of Service: 11/05/17 Admit Problem/Dx: Admission Diagnosis/Problem Admission Diagnosis/Problem Drug withdrawal Source of Information: Patient - History of Present Illness Initial Comments - Free Text/Narative: The patient is a 52-year-old gentleman with a history of COPD, systolic congestive heart failure, frequent drug use. The patient presented with about a week history of using multiple drugs including amphetamine, OXYCODONE, SMOKING MARIJUANA. The patient has been increasing to weak and short of breath in the past few days. He came into the emergency room He denies fever, no cough. - Related Data Allergies/Adverse Reactions: Allergies Allergy/AdvReac Type Severity Reaction Status Date / Time No Known Allergies Allergy Verified 11/05/17 12:39 Home Medications: Home Meds Carvedilol [Coreg] 3.125 mg PO BIDMEALS 10/18/15 [History] Lisinopril 2.5 mg PO DAILY #30 04/20/17 [Rx] Potassium Chloride [Klor-Con 10] 20 meq PO DAILY #30 tab.er 04/20/17 [Rx] Spironolactone [Aldactone] 25 mg PO DAILY 30 Days #30 tablet 04/20/17 [Rx] ALPRAZolam [Xanax] 0.25 mg PO DAILY 07/31/17 [History] Digoxin 0.25 mg PO DAILY 07/31/17 [History] Fluticasone/Salmeterol [Advair 250-50 Diskus] 1 puff INH DAILY 07/31/17 [History ] Pantoprazole Sodium [Protonix] 40 mg PO DAILY 07/31/17 [History] Furosemide [Lasix] 80 mg PO BID 08/20/17 [History] Past Medical History - Past Health History Medical/Surgical History: Denies Medical/Surgical History HEENT History: Reports: None Cardiovascular History: Reports: Blood Clots/VTE/DVT, Cardiomyopathy, Heart Failure, Hypertension, SOB on Exertion Respiratory History: Reports: SOB Gastrointestinal History: Reports: Cirrhosis, Gastritis, GERD Genitourinary History: Reports: Other (See Below) Other Genitourinary History: liver issues r/t ETOH Musculoskeletal History: Reports: Arthritis, Other (See Below) Other Musculoskeletal History: torn left and right upper arm tendon. missed surgery 03/2017 Neurological History: Reports: None Psychiatric History: Reports: Addiction, Anxiety, Depression, Panic Attack Other Psychiatric History: ETOH treatment last approx 10 years ago Endocrine/Metabolic History: Reports: None Hematologic History: Reports: None Immunologic History: Reports: None Oncologic (Cancer) History: Reports: None Dermatologic History: Reports: None - Infectious Disease History Infectious Disease History: Reports: None - Past Surgical History Head Surgeries/Procedures: Reports: None Cardiovascular Surgical History: Reports: AICD, Percutaneous Transluminal Angioplasty Respiratory Surgical History: Reports: None GI Surgical History: Reports: None Male Surgical History: Reports: None Neurological Surgical History: Reports: None Musculoskeletal Surgical History: Reports: None Social & Family History - Family History Family Medical History: Unobtainable Cardiac: Reports: Hypertension Other Cardiac Family History: Dad and paternal grandmother have hypertension. Respiratory: Reports: Asthma Other Respiratory Family Hisory: Mom and dad have asthma. Endocrine/Metabolic: Reports: Diabetes, Type I Other Endocrine/Metabolic Family History: Dad and paternal grandmother have type I diabetes. - Tobacco Use Smoking Status *Q: Never Smoker - Caffeine Use Caffeine Use: Reports: Coffee, Tea - Recreational Drug Use Recreational Drug Use: Yes Drug Use in Last 12 Months: Yes Recreational Drug Type: Reports: Marijuana/Hashish, Methamphetamine Recreational Drug Use Frequency: Daily - Living Situation & Occupation Living situation: Reports: with Family Occupation: Unemployed H&P Review of Systems - Review of Systems: Review Of Systems: See Below General: Denies: Fever Pulmonary: Reports: Shortness of Breath, Cough. Denies: Sputum Cardiovascular: Reports: Palpitations, Edema, Lightheadedness. Denies: Chest Pain Gastrointestinal: Denies: Abdominal Pain Genitourinary: Denies: Dysuria Psychiatric: Reports: Anxiety Neurological: Reports: Dizziness Exam - Exam Exam: See Below - Vital Signs Vital Signs: Last Vital Signs Temp 36.9 C 11/05/17 13:22 Pulse 104 H 11/05/17 12:36 Resp 20 11/05/17 13:22 BP 106/86 11/05/17 13:22 Pulse Ox 98 11/05/17 12:36 - Exam General: Alert, Oriented Neck: Supple Lungs: Rhonchi, Wheezing Cardiovascular: Regular Rate, Regular Rhythm GI/Abdominal Exam: Normal Bowel Sounds, Soft, Non-Tender Extremities: No Pedal Edema - Patient Data Lab Results Last 24 hrs: Laboratory Results - last 24 hr 0811/05/17 11/05/17 Range/Units 10:27 10:27 11:55 WBC 5.1 (5.0-10.0) 10^3/uL RBC 4.26 L (4.6-6.2) 10^6/uL Hgb 11.8 L (14.0-18.0) g/dL Hct 37.8 L (40.0-54.0) % MCV 88.7 (80-100) fL MCH 27.7 (27.0-34.0) pg MCHC 31.2 L (33.0-35.0) g/dL Plt Count 267 D (150-450) 10^3/uL Neut % (Auto) 67.1 (42.2-75.2) % Lymph % (Auto) 17.7 L (20.5-50.1) % Cobb % (Auto) 10.9 H (2-8) % Eos % (Auto) 3.5 H (1.0-3.0) % Baso % (Auto) 0.8 (0.0-1.0) % Sodium 138 (135-145) mmol/L Potassium 3.2 L (3.6-5.0) mmol/L Chloride 103 (101-111) mmol/L Carbon Dioxide 25.0 (21.0-31.0) mmol/L Anion Gap 13.2 BUN 10 (7-18) mg/dL Creatinine 0.8 (0.6-1.3) mg/dL Est Cr Clr Drug Dosing TNP Estimated GFR (MDRD) > 60 BUN/Creatinine Ratio 12.50 Glucose 99 (74-105) mg/dL Calcium 8.7 (8.4-10.2) mg/dl Magnesium 1.5 L (1.8-2.5) mg/dL Total Bilirubin 2.6 H (0.2-1.0) mg/dL AST 31 (10-42) IU/L ALT 18 (10-60) IU/L Alkaline Phosphatase 92 (42-121) IU/L Troponin I 0.03 H* (0.00-0.02) ng/ml B-Natriuretic Peptide 2240 H (0-100) pg/ml Total Protein 7.4 (6.7-8.2) g/dl Albumin 3.5 (3.2-5.5) g/dl Globulin 3.9 Albumin/Globulin Ratio 0.90 Urine Color [place] (YELLOW) Urine Appearance Turbid (CLEAR) Urine pH 5.5 (5.0-9.0) Ur Specific [place] >= 1.030 (1.005-1.030) Urine Protein 100 H (NEGATIVE) Urine Glucose (UA) Negative (NEGATIVE) Urine Ketones 15 H (NEGATIVE) Urine Occult Blood Trace-intact H (NEGATIVE) Urine Nitrite Negative (NEGATIVE) Urine Bilirubin Moderate H (NEGATIVE) Urine Urobilinogen 1.0 (0.2-1.0) mg/dL Ur Leukocyte Esterase Negative (NEGATIVE) Urine RBC 0-5 /HPF Urine WBC Not seen (0-5/HPF) /HPF Ur Epithelial Cells Occasional /HPF Amorphous Sediment Many (0/HPF) /HPF Urine Opiates Screen (NEGATIVE) Ur Oxycodone Screen (NEGATIVE) Urine Methadone Screen (NEGATIVE) Ur Barbiturates Screen (NEGATIVE) U Tricyclic Antidepress (NEGATIVE) Ur Phencyclidine Scrn (NEGATIVE) Ur Amphetamine Screen (NEGATIVE) U Methamphetamines Scrn (NEGATIVE) Urine MDMA Screen (NEGATIVE) U Benzodiazepines Scrn (NEGATIVE) Urine Cocaine Screen (NEGATIVE) U Marijuana (THC) Screen (NEGATIVE) Ethyl Alcohol < 5 mg/dL 11/05/17 Range/Units 11:55 WBC (5.0-10.0) 10^3/uL RBC (4.6-6.2) 10^6/uL Hgb (14.0-18.0) g/dL Hct (40.0-54.0) % MCV (80-100) fL MCH (27.0-34.0) pg MCHC (33.0-35.0) g/dL Plt Count (150-450) 10^3/uL Neut % (Auto) (42.2-75.2) % Lymph % (Auto) (20.5-50.1) % Cobb % (Auto) (2-8) % Eos % (Auto) (1.0-3.0) % Baso % (Auto) (0.0-1.0) % Sodium (135-145) mmol/L Potassium (3.6-5.0) mmol/L Chloride (101-111) mmol/L Carbon Dioxide (21.0-31.0) mmol/L Anion Gap BUN (7-18) mg/dL Creatinine (0.6-1.3) mg/dL Est Cr Clr Drug Dosing Estimated GFR (MDRD) BUN/Creatinine Ratio Glucose (74-105) mg/dL Calcium (8.4-10.2) mg/dl Magnesium (1.8-2.5) mg/dL Total Bilirubin (0.2-1.0) mg/dL AST (10-42) IU/L ALT (10-60) IU/L Alkaline Phosphatase (42-121) IU/L Troponin I (0.00-0.02) ng/ml B-Natriuretic Peptide (0-100) pg/ml Total Protein (6.7-8.2) g/dl Albumin (3.2-5.5) g/dl Globulin Albumin/Globulin Ratio Urine Color (YELLOW) Urine Appearance (CLEAR) Urine pH (5.0-9.0) Ur Specific [place] (1.005-1.030) Urine Protein (NEGATIVE) Urine Glucose (UA) (NEGATIVE) Urine Ketones (NEGATIVE) Urine Occult Blood (NEGATIVE) Urine Nitrite (NEGATIVE) Urine Bilirubin (NEGATIVE) Urine Urobilinogen (0.2-1.0) mg/dL Ur Leukocyte Esterase (NEGATIVE) Urine RBC /HPF Urine WBC (0-5/HPF) /HPF Ur Epithelial Cells /HPF Amorphous Sediment (0/HPF) /HPF Urine Opiates Screen Negative (NEGATIVE) Ur Oxycodone Screen Positive H (NEGATIVE) Urine Methadone Screen Negative (NEGATIVE) Ur Barbiturates Screen Negative (NEGATIVE) U Tricyclic Antidepress Negative (NEGATIVE) Ur Phencyclidine Scrn Negative (NEGATIVE) Ur Amphetamine Screen Positive H (NEGATIVE) U Methamphetamines Scrn Positive H (NEGATIVE) Urine MDMA Screen Positive H (NEGATIVE) U Benzodiazepines Scrn Positive H (NEGATIVE) Urine Cocaine Screen Negative (NEGATIVE) U Marijuana (THC) Screen Positive H (NEGATIVE) Ethyl Alcohol mg/dL Result Diagrams: 11/05/17 10:27 11/05/17 10:27 - Problem List (1) CHF (congestive heart failure) SNOMED Code(s): 94075750 ICD Code: I50.9 - HEART FAILURE, UNSPECIFIED Status: Acute Priority: High Current Visit: No Qualifiers: Qualified Code(s): I50.9 - Heart failure, unspecified (2) Chronic systolic HF (heart failure) SNOMED Code(s): 642666857 ICD Code: I50.22 - CHRONIC SYSTOLIC (CONGESTIVE) HEART FAILURE Status: Acute Current Visit: No (3) Hypokalemia SNOMED Code(s): 38645305 ICD Code: E87.6 - HYPOKALEMIA Status: Acute Current Visit: No (4) Methamphetamine abuse SNOMED Code(s): 819483673 ICD Code: F15.10 - OTHER STIMULANT ABUSE, UNCOMPLICATED Status: Acute Current Visit: No (5) Oxycodone use disorder, moderate SNOMED Code(s): 6310279 ICD Code: F11.20 - OPIOID DEPENDENCE, UNCOMPLICATED Status: Acute Current Visit: No (6) Polysubstance dependence including opioid type drug with complication, episodic abuse SNOMED Code(s): 529363354 ICD Code: F11.229 - OPIOID DEPENDENCE WITH INTOXICATION, UNSPECIFIED Status : Acute Current Visit: No Problem List Initiated/Reviewed/Updated: Yes Orders Last 24hrs: Active Orders 24 hr Category Date Time Status Patient Status [ADT] Routine ADT 11/05/17 13:22 Ordered EKG Documentation Completion [RC] STAT Care 11/05/17 10:18 Active Oxygen Therapy [RC] PRN Care 11/05/17 13:22 Ordered Peripheral IV Care [RC] . DIRECTED Care 11/05/17 13:24 Ordered RT Aerosol Therapy [RC] ASDIRECTED Care 11/05/17 13:20 Ordered Up With Assistance [RC] ASDIRECTED Care 11/05/17 13:22 Ordered VTE/DVT Education [RC] PER UNIT ROUTINE Care 11/05/17 13:22 Ordered Vital Signs [RC] Q4H Care 11/05/17 13:22 Ordered Regular Diet [DIET] Diet 11/05/17 Dinner Ordered BASIC METABOLIC PANEL,BMP [CHEM] AM Lab 11/06/17 05:15 Ordered CBC WITH AUTO DIFF [HEME] AM Lab 11/06/17 05:15 Ordered DRUG SCREEN URINE BIORAD [URCHEM] Stat Lab 11/05/17 11:55 Ordered MAGNESIUM [CHEM] AM Lab 11/06/17 05:11 Ordered PHOSPHORUS [CHEM] AM Lab 11/06/17 05:11 Ordered TROPONIN I [CHEM] AM Lab 11/06/17 05:11 Ordered UA W/MICROSCOPIC [URIN] Stat Lab 11/05/17 11:55 Ordered ALPRAZolam [Xanax] Med 11/06/17 09:00 Ordered 0.25 mg PO DAILY Acetaminophen [Tylenol] Med 11/05/17 13:22 Ordered 650 mg PO Q4H PRN Albuterol/Ipratropium [DuoNeb 3.0-0.5 MG/3 ML] Med 11/05/17 15:00 Ordered 3 ml NEB TIDRT Budesonide [Pulmicort] Med 11/05/17 18:00 Ordered 0.5 mg NEB BIDRT Carvedilol [Coreg] Med 11/05/17 18:00 Ordered 3.125 mg PO BIDMEALS Digoxin [Lanoxin] Med 11/06/17 09:00 Ordered 250 mcg PO DAILY Furosemide [Lasix] Med 11/05/17 21:00 Ordered 80 mg PO BID Heparin Sodium Med 11/05/17 14:00 Ordered 5,000 units SUBCUT Q8HR LORazepam [Ativan] Med 11/05/17 13:21 Ordered 1 mg IVPUSH Q4H PRN Lisinopril [Lisinopril] Med 11/06/17 09:00 Ordered 2.5 mg PO DAILY Magnesium Sulfate/D5W [Magnesium 1 GM in D5W 100 ML] 1 Med 11/05/17 13:20 Ordered gm Premix Bag 1 bag IV ONETIME Ondansetron [Zofran ODT] Med 11/05/17 13:22 Ordered 4 mg PO Q4H PRN Pantoprazole [ProTONIX] Med 11/06/17 09:00 Ordered 40 mg PO DAILY Potassium Chloride [Klor-Con 10] Med 11/06/17 14:00 Once 40 meq PO ONETIME ONE Sodium Chloride 0.9% [Saline Flush] Med 11/05/17 13:22 Ordered 10 ml FLUSH ASDIRECTED PRN Spironolactone [Aldactone] Med 11/06/17 09:00 Ordered 25 mg PO DAILY Zolpidem [Ambien] Med 11/05/17 13:22 Ordered 5 mg PO BEDTIME PRN Antiembolic Hose [OM.PC] Per Unit Routine Oth 11/05/17 13:23 Ordered Peripheral IV Insertion Adult [OM.PC] Routine Oth 11/05/17 13:22 Ordered Resuscitation Status Routine Resus Stat 11/05/17 13:22 Ordered Medication Orders Acetaminophen (Tylenol) 650 mg PO Q4H PRN PRN Reason: Pain (Mild 1-3)/fever Albuterol/Ipratropium (Duoneb 3.0-0.5 Mg/3 Ml) 3 ml NEB TIDRT ANGELIQUE Alprazolam (Xanax) 0.25 mg PO DAILY ANG[facility]IQUE Budesonide (Pulmicort) 0.5 mg NEB BIDRT ANGELIQUE Carvedilol (Coreg) 3.125 mg PO BIDMEALS [facility] Digoxin (Lanoxin) 250 mcg PO DAILY [facility] Furosemide (Lasix) 80 mg PO BID [place]ELI[place] Heparin Sodium (Porcine) (Heparin Sodium) 5,000 units SUBCUT Q8HR [facility] Magnesium Sulfate/Dextrose 1 (gm/ Premix) 100 mls @ 100 mls/hr IV ONETIME ONE Stop: 11/05/17 14:19 Lorazepam (Ativan) 1 mg IVPUSH Q4H PRN PRN Reason: Agitation Non-Formulary Medication (Lisinopril [Lisinopril]) 2.5 mg PO DAILY [facility] Ondansetron HCl (Zofran Odt) 4 mg PO Q4H PRN PRN Reason: nausea, able to take PO Pantoprazole Sodium (Protonix) 40 mg PO DAILY [facility] Potassium Chloride (Klor-Con 10) 40 meq PO ONETIME ONE Stop: 11/06/17 14:01 Sodium Chloride (Saline Flush) 10 ml FLUSH ASDIRECTED PRN PRN Reason: Keep Vein Open Spironolactone (Aldactone) 25 mg PO DAILY [facility] Zolpidem Tartrate (Ambien) 5 mg PO BEDTIME PRN PRN Reason: Sleep Assessment/Plan Comment:: 52-year-old gentleman who presented with about 1 week history of multi drug use. The patient has not been taking His medications. He has been complaining of increasing shortness of breath, weakness, anxiety, tremors Drug use We'll follow the patient for withdrawal effects. Use Ativan as needed Decompensated acute systolic congestive heart failure Resume diuretics Resume Coreg COPD with acute exacerbation Use Pulmicort and DuoNeb Hypokalemia, hypomagnesemia We'll replace and follow DVT prophylaxis will be subcutaneous heparin
[2017-11-05] MEDS: Heparin Sodium 5,000 Units/ML Vial SUBCUT SCH ×2 (13:42→22:25)
[2017-11-05] MEDS: Furosemide 40 MG Tab PO SCH (13:44)
[2017-11-05] MEDS: Albuterol/Ipratropium 3.0-0.5 MG/3 ML Neb Soln NEB SCH ×2 (14:00→20:55)
[2017-11-05] MEDS: LORazepam 2 MG/ML Syringe IVPUSH PRN ×3 (14:05→22:27)
[2017-11-05] MEDS: Budesonide 0.5 MG/2 ML Neb Susp NEB SCH (17:51)
[2017-11-05] MEDS: Carvedilol 3.125 MG Tab PO SCH (18:24)
[2017-11-06] MEDS: Heparin Sodium 5,000 Units/ML Vial SUBCUT SCH (05:38)
[2017-11-06] MEDS ORDERED: Pantoprazole 40 MG Tab.CR PO SCH (06:00)
[2017-11-06 07:14] LABS: ANION GAP 11.4; CHLORIDE,CL 105 mmol/L (101-111); SODIUM,NA 137 mmol/L (135-145)
[2017-11-06] MEDS: Albuterol/Ipratropium 3.0-0.5 MG/3 ML Neb Soln NEB SCH (07:15)
[2017-11-06] MEDS: Budesonide 0.5 MG/2 ML Neb Susp NEB SCH (07:20)
[2017-11-06 08:00] VITALS: BP 97/76
[2017-11-06] MEDS ORDERED: Digoxin 250 MCG Tab PO SCH (09:00)
[2017-11-06] MEDS ORDERED: Lisinopril 5 MG Tab PO SCH (09:00)
[2017-11-06] MEDS ORDERED: ALPRAZolam 0.25 MG Tab PO SCH (09:00)
[2017-11-06] MEDS ORDERED: Spironolactone 25 MG Tab PO SCH (09:00)
[2017-11-06] MEDS: Carvedilol 3.125 MG Tab PO SCH (09:12)
[2017-11-06] MEDS ORDERED: Phosphorus #1 250 MG Tab PO ONE (09:13)
[2017-11-06] MEDS: Furosemide 40 MG Tab PO SCH (09:13)
--- NOTE | 2017-11-06 09:21 | PCM.DCSUM1 ---
Discharge Summary - Hospital Course Free Text/Narrative:: 52-year-old gentleman who presented with about 1 week history of multi drug use with amphetamine, oxycodone, marijuana, benzo, alcohol. The patient has not been taking His medications. He has been complaining of increasing shortness of breath, weakness, anxiety, tremors Drug use during the hospital stay had no significant withdrawal Decompensated acute systolic congestive heart failure Resumed diuretics Resumes Coreg COPD with acute exacerbation Used Pulmicort and DuoNeb resume Advair Hypokalemia, hypomagnesemia replaced return to eating discussed and offered drug/alcohol rehab pt is not interested Diagnosis: Stroke: No - Discharge Data Discharge Date: 11/06/17 Discharge Disposition: Home, Self-Care 01 Condition: Good - Discharge Diagnosis/Problem(s) (1) CHF (congestive heart failure) SNOMED Code(s): 19623123 ICD Code: I50.9 - HEART FAILURE, UNSPECIFIED Status: Acute Priority: High Current Visit: No Qualifiers: Qualified Code(s): I50.9 - Heart failure, unspecified (2) Chronic systolic HF (heart failure) SNOMED Code(s): 369017211 ICD Code: I50.22 - CHRONIC SYSTOLIC (CONGESTIVE) HEART FAILURE Status: Acute Current Visit: No (3) Hypokalemia SNOMED Code(s): 07882786 ICD Code: E87.6 - HYPOKALEMIA Status: Acute Current Visit: No (4) Methamphetamine abuse SNOMED Code(s): 091165706 ICD Code: F15.10 - OTHER STIMULANT ABUSE, UNCOMPLICATED Status: Acute Current Visit: No (5) Oxycodone use disorder, moderate SNOMED Code(s): 6947662 ICD Code: F11.20 - OPIOID DEPENDENCE, UNCOMPLICATED Status: Acute Current Visit: No (6) Polysubstance dependence including opioid type drug with complication, episodic abuse SNOMED Code(s): 401658045 ICD Code: F11.229 - OPIOID DEPENDENCE WITH INTOXICATION, UNSPECIFIED Status : Acute Current Visit: No - Patient Instructions Diet: Heart Healthy Diet Activity: As Tolerated - Discharge Plan *PRESCRIPTION DRUG MONITORING PROGRAM REVIEWED*: Not Applicable *COPY OF PRESCRIPTION DRUG MONITORING REPORT IN PATIENT NIMA: Not Applicable Home Medications: Home Meds Carvedilol [Coreg] 3.125 mg PO BIDMEALS 10/18/15 [History] Lisinopril 2.5 mg PO DAILY #30 04/20/17 [Rx] Potassium Chloride [Klor-Con 10] 20 meq PO DAILY #30 tab.er 04/20/17 [Rx] Spironolactone [Aldactone] 25 mg PO DAILY 30 Days #30 tablet 04/20/17 [Rx] ALPRAZolam [Xanax] 0.25 mg PO DAILY 07/31/17 [History] Digoxin 0.25 mg PO DAILY 07/31/17 [History] Fluticasone/Salmeterol [Advair 250-50 Diskus] 1 puff INH DAILY 07/31/17 [History ] Pantoprazole Sodium [Protonix] 40 mg PO DAILY 07/31/17 [History] Furosemide [Lasix] 80 mg PO BID 08/20/17 [History] Patient Handouts: Substance Use Disorder, Finding Treatment for Addiction Referrals: PCP,Ha[facility]tain [Primary Care Provider] - - Discharge Summary/Plan Comment DC Time >30 min.: No - General Info Date of Service: 11/06/17 - Review of Systems General: Denies: Fever, Weakness Pulmonary: Reports: Wheezing (mild) Cardiovascular: Denies: Chest Pain Gastrointestinal: Denies: Abdominal Pain Neurological: Denies: Confusion - Patient Data Vitals - Most Recent: Last Vital Signs Temp 36.8 C 11/06/17 07:59 Pulse 90 11/06/17 09:12 Resp 20 11/06/17 07:59 BP 97/76 11/06/17 09:13 Pulse Ox 95 11/06/17 07:59 Weight - Most Recent: 79.016 kg I&O - Last 24 hours: Intake & Output 11/05/17 11/06/17 11/06/17 22:59 06:59 14:59 Intake Total 400 Output Total 500 Balance -100 Lab Results - Last 24 hrs: Laboratory Results - last 24 hr 11/05/17 11/05/17 11/05/17 Range/Units 10:27 10:27 11:55 WBC 5.1 (5.0-10.0) 10^3/uL RBC 4.26 L (4.6-6.2) 10^6/uL Hgb 11.8 L (14.0-18.0) g/dL Hct 37.8 L (40.0-54.0) % MCV 88.7 (80-100) fL MCH 27.7 (27.0-34.0) pg MCHC 31.2 L (33.0-35.0) g/dL Plt Count 267 D (150-450) 10^3/uL Neut % (Auto) 67.1 (42.2-75.2) % Lymph % (Auto) 17.7 L (20.5-50.1) % [place] % (Auto) 10.9 H (2-8) % Eos % (Auto) 3.5 H (1.0-3.0) % Baso % (Auto) 0.8 (0.0-1.0) % Add Manual Diff Neutrophils % (Manual) (42-75) % Band Neutrophils % % Lymphocytes % (Manual) (20-50) % Monocytes % (Manual) (2-8) % Eosinophils % (Manual) (1-3) % Nucleated RBCs /100WBC Hypochromasia Target Cells Sodium 138 (135-145) mmol/L Potassium 3.2 L (3.6-5.0) mmol/L Chloride 103 (101-111) mmol/L Carbon Dioxide 25.0 (21.0-31.0) mmol/L Anion Gap 13.2 BUN 10 (7-18) mg/dL Creatinine 0.8 (0.6-1.3) mg/dL Est Cr Clr Drug Dosing TNP Estimated GFR (MDRD) > 60 BUN/Creatinine Ratio 12.50 Glucose 99 (74-105) mg/dL Calcium 8.7 (8.4-10.2) mg/dl Phosphorus (2.5-4.6) mg/dL Magnesium 1.5 L (1.8-2.5) mg/dL Total Bilirubin 2.6 H (0.2-1.0) mg/dL AST 31 (10-42) IU/L ALT 18 (10-60) IU/L Alkaline Phosphatase 92 (42-121) IU/L Troponin I 0.03 H* (0.00-0.02) ng/ml B-Natriuretic Peptide 2240 H (0-100) pg/ml Total Protein 7.4 (6.7-8.2) g/dl Albumin 3.5 (3.2-5.5) g/dl Globulin 3.9 Albumin/Globulin Ratio 0.90 Urine Color [place] (YELLOW) Urine Appearance Turbid (CLEAR) Urine pH 5.5 (5.0-9.0) Ur Specific [place] >= 1.030 (1.005-1.030) Urine Protein 100 H (NEGATIVE) Urine Glucose (UA) Negative (NEGATIVE) Urine Ketones 15 H (NEGATIVE) Urine Occult Blood Trace-intact H (NEGATIVE) Urine Nitrite Negative (NEGATIVE) Urine Bilirubin Moderate H (NEGATIVE) Urine Urobilinogen 1.0 (0.2-1.0) mg/dL Ur Leukocyte Esterase Negative (NEGATIVE) Urine RBC 0-5 /HPF Urine WBC Not seen (0-5/HPF) /HPF Ur Epithelial Cells Occasional /HPF Amorphous Sediment Many (0/HPF) /HPF Urine Opiates Screen (NEGATIVE) Ur Oxycodone Screen (NEGATIVE) Urine Methadone Screen (NEGATIVE) Ur Barbiturates Screen (NEGATIVE) U Tricyclic Antidepress (NEGATIVE) Ur Phencyclidine Scrn (NEGATIVE) Ur Amphetamine Screen (NEGATIVE) U Methamphetamines Scrn (NEGATIVE) Urine MDMA Screen (NEGATIVE) U Benzodiazepines Scrn (NEGATIVE) Urine Cocaine Screen (NEGATIVE) U Marijuana (THC) Screen (NEGATIVE) Ethyl Alcohol < 5 mg/dL 11/05/17 11/06/17 11/06/17 Range/Units 11:55 06:30 06:30 WBC 5.9 (5.0-10.0) 10^3/uL RBC 4.13 L (4.6-6.2) 10^6/uL Hgb 11.5 L (14.0-18.0) g/dL Hct 36.6 L (40.0-54.0) % MCV 88.6 (80-100) fL MCH 27.8 (27.0-34.0) pg MCHC 31.4 L (33.0-35.0) g/dL Plt Count 253 (150-450) 10^3/uL Neut % (Auto) 57.4 (42.2-75.2) % Lymph % (Auto) 23.2 (20.5-50.1) % [place] % (Auto) 12.1 H (2-8) % Eos % (Auto) 6.3 H (1.0-3.0) % Baso % (Auto) 1.0 (0.0-1.0) % Add Manual Diff Yes Neutrophils % (Manual) 63 (42-75) % Band Neutrophils % 2 % Lymphocytes % (Manual) 20 (20-50) % Monocytes % (Manual) 11 H (2-8) % Eosinophils % (Manual) 4 H (1-3) % Nucleated RBCs 1 /100WBC Hypochromasia 1+ slight Target Cells 1+ slight Sodium 137 (135-145) mmol/L Potassium 3.4 L (3.6-5.0) mmol/L Chloride 105 (101-111) mmol/L Carbon Dioxide 24.0 (21.0-31.0) mmol/L Anion Gap 11.4 BUN 15 (7-18) mg/dL Creatinine 1.0 (0.6-1.3) mg/dL Est Cr Clr Drug Dosing 88.38 Estimated GFR (MDRD) > 60 BUN/Creatinine Ratio Glucose 117 H (74-105) mg/dL Calcium 8.5 (8.4-10.2) mg/dl Phosphorus 4.0 (2.5-4.6) mg/dL Magnesium 1.6 L (1.8-2.5) mg/dL Total Bilirubin (0.2-1.0) mg/dL AST (10-42) IU/L ALT (10-60) IU/L Alkaline Phosphatase (42-121) IU/L Troponin I 0.04 H* (0.00-0.02) ng/ml B-Natriuretic Peptide (0-100) pg/ml Total Protein (6.7-8.2) g/dl Albumin (3.2-5.5) g/dl Globulin Albumin/Globulin Ratio Urine Color (YELLOW) Urine Appearance (CLEAR) Urine pH (5.0-9.0) Ur Specific [place] (1.005-1.030) Urine Protein (NEGATIVE) Urine Glucose (UA) (NEGATIVE) Urine Ketones (NEGATIVE) Urine Occult Blood (NEGATIVE) Urine Nitrite (NEGATIVE) Urine Bilirubin (NEGATIVE) Urine Urobilinogen (0.2-1.0) mg/dL Ur Leukocyte Esterase (NEGATIVE) Urine RBC /HPF Urine WBC (0-5/HPF) /HPF Ur Epithelial Cells /HPF Amorphous Sediment (0/HPF) /HPF Urine Opiates Screen Negative (NEGATIVE) Ur Oxycodone Screen Positive H (NEGATIVE) Urine Methadone Screen Negative (NEGATIVE) Ur Barbiturates Screen Negative (NEGATIVE) U Tricyclic Antidepress Negative (NEGATIVE) Ur Phencyclidine Scrn Negative (NEGATIVE) Ur Amphetamine Screen Positive H (NEGATIVE) U Methamphetamines Scrn Positive H (NEGATIVE) Urine MDMA Screen Positive H (NEGATIVE) U Benzodiazepines Scrn Positive H (NEGATIVE) Urine Cocaine Screen Negative (NEGATIVE) U Marijuana (THC) Screen Positive H (NEGATIVE) Ethyl Alcohol mg/dL Med Orders - Current: Current Medications Acetaminophen (Tylenol) 650 mg PO Q4H PRN PRN Reason: Pain (Mild 1-3)/fever Albuterol/Ipratropium (Duoneb 3.0-0.5 Mg/3 Ml) 3 ml NEB TIDRT [facility] Last Admin: 11/06/17 07:15 Dose: 3 ml Alprazolam (Xanax) 0.25 mg PO DAILY [facility] Last Admin: 11/06/17 09:12 Dose: 0.25 mg Budesonide (Pulmicort) 0.5 mg NEB BIDRT [facility] Last Admin: 11/06/17 07:20 Dose: 0.5 mg Carvedilol (Coreg) 3.125 mg PO BIDMEALS [facility] Last Admin: 11/06/17 09:12 Dose: 3.125 mg Digoxin (Lanoxin) 250 mcg PO DAILY [facility] Last Admin: 11/06/17 09:12 Dose: 250 mcg Furosemide (Lasix) 80 mg PO BIDDIURETIC [facility] Last Admin: 11/06/17 09:13 Dose: 80 mg Heparin Sodium (Porcine) (Heparin Sodium) 5,000 units SUBCUT Q8HR [facility] Last Admin: 11/06/17 05:38 Dose: 5,000 units Lisinopril (Prinivil) 2.5 mg PO DAILY [facility] Last Admin: 11/06/17 09:13 Dose: 2.5 mg Lorazepam (Ativan) 1 mg IVPUSH Q4H PRN PRN Reason: Agitation Last Admin: 11/05/17 22:27 Dose: 1 mg Ondansetron HCl (Zofran Odt) 4 mg PO Q4H PRN PRN Reason: nausea, able to take PO Last Admin: 11/05/17 16:12 Dose: 4 mg Pantoprazole Sodium (Protonix) 40 mg PO ACBRK [facility] Last Admin: 11/06/17 05:38 Dose: 40 mg Potassium Chloride (Klor-Con 10) 40 meq PO ONETIME ONE Stop: 11/06/17 14:01 Sodium Chloride (Saline Flush) 10 ml FLUSH ASDIRECTED PRN PRN Reason: Keep Vein Open Last Admin: 11/06/17 09:15 Dose: 10 ml Sodium Phosphate (Neutra-Phos) 250 mg PO ONETIME ONE Stop: 11/06/17 09:14 Spironolactone (Aldactone) 25 mg PO DAILY [facility] Last Admin: 11/06/17 09:13 Dose: 25 mg Zolpidem Tartrate (Ambien) 5 mg PO BEDTIME PRN PRN Reason: Sleep Last Admin: 11/05/17 23:56 Dose: 5 mg Discontinued Medications Magnesium Sulfate/Dextrose 1 (gm/ Premix) 100 mls @ 100 mls/hr IV ONETIME ONE Stop: 11/05/17 14:19 Last Infusion: 11/05/17 15:14 Dose: Infused Lorazepam (Ativan) 2 mg IVPUSH ONETIME ONE Stop: 11/05/17 11:51 Last Admin: 11/05/17 11:50 Dose: Not Given - Exam General: Reports: Alert, Oriented Neck: Reports: Supple Lungs: Reports: Wheezing (mild b/l) Cardiovascular: Reports: Regular Rate, Regular Rhythm Extremities: No Pedal Edema Skin: Reports: Warm, Dry Neurological: Reports: No New Focal Deficit Psy/Mental Status: Reports: Alert, Normal Affect, Normal Mood
[2017-11-06] MEDS ORDERED: Potassium Chloride 10 MEQ Tab.ER PO ONE (10:00)
--- NOTE | 2017-11-11 13:37 | EKG ---
11/05/2017- MANNIE MEREDITH - FINDINGS: EKG, per my reading, shows ventricular-paced rhythm. [facility] /[id number]
== END 2017-11-06 10:42 | disposition home or self-care (01) ==
LOC: DL.ED 09:56 → DL.MS 12:28 → UNDOADMOB 12:28 → DL.MS 13:22
PROVIDERS: ADMIT Internal Medicine; ATTEND Internal Medicine
DX: R06.02 Shortness of breath (principal); R53.1 Weakness; R25.1 Tremor, unspecified; E87.6 Hypokalemia; E83.42 Hypomagnesemia; J44.1 Chronic obstructive pulmonary disease with (acute) exacerbation; I11.0 Hypertensive heart disease with heart failure; I50.23 Acute on chronic systolic (congestive) heart failure; M19.90 Unspecified osteoarthritis, unspecified site; F15.10 Other stimulant abuse, uncomplicated; F11.229 Opioid dependence with intoxication, unspecified; Z79.899 Other long term (current) drug therapy
CPT/HCPCS: 36415; 71045; 80048; 80053; 80305; 81001; 83735; 83880; 84100; 84484; 85025; 93005; 94640; 96365; 96372; 96375; 96376; 99285; A9270; G0378; G0480; J1644; J2060; J3475; J7050; J7620-GY

== ENCOUNTER 2017-11-12 09:17 | Inpatient (IN) | payer MEDICAID ==
--- NOTE | 2017-11-12 09:25 | EDM.PDOC ---
ED HPI GENERAL MEDICAL PROBLEM - General Chief Complaint: Respiratory Problem Stated Complaint: SOB. IN BY AMB Time Seen by Provider: 11/12/17 09:20 Source of Information: Reports: Patient, EMS, Old Records, RN, RN Notes Reviewed History Limitations: Reports: No Limitations - History of Present Illness INITIAL COMMENTS - FREE TEXT/NARRATIVE: Pt presents to ER by [facility] from home with c/o shortness of breath, and nausea with vomiting. Pt states he has been nauseated for the last 2 to 3 days and has not been able to keep down any of his medications. He denies fevers, chest pain , lower extremity edema, aspiration, or diarrhea. He admits to facial swelling/ puffiness, moist cough with some clear/white sputum production, wheezing, chest pressure (but states the chest pressure is chronic), generalized weakness, fatigue, and anxiety. He admits to recent binge on alcohol, marijuana, and methamphetamines. He states he last drank alcohol and just drugs about 4 days ago. He denies any falls or injuries. He states he has continued to abstain from cigarette smoking, and quit about 6 or 8 months ago. Onset: Gradual Duration: Chronic, Getting Worse, Recurring Location: Reports: Chest Quality: Reports: Pressure Severity: Severe Improves with: Reports: None Worsens with: Reports: Other (activity/exertion) Associated Symptoms: Reports: No Other Symptoms Chest Pain Score (Numeric/FACES): 6 - Related Data Allergies Allergy/AdvReac Type Severity Reaction Status Date / Time No Known Allergies Allergy Verified 11/12/17 09:51 Home Meds: Home Meds Carvedilol [Coreg] 3.125 mg PO BIDMEALS 10/18/15 [History] Lisinopril 2.5 mg PO DAILY #30 04/20/17 [Rx] Potassium Chloride [Klor-Con 10] 20 meq PO DAILY #30 tab.er 04/20/17 [Rx] Spironolactone [Aldactone] 25 mg PO DAILY 30 Days #30 tablet 04/20/17 [Rx] ALPRAZolam [Xanax] 0.25 mg PO DAILY 07/31/17 [History] Digoxin 0.25 mg PO DAILY 07/31/17 [History] Fluticasone/Salmeterol [Advair 250-50 Diskus] 1 puff INH DAILY 07/31/17 [History ] Pantoprazole Sodium [Protonix] 40 mg PO DAILY 07/31/17 [History] Furosemide [Lasix] 80 mg PO BID 08/20/17 [History] Past Medical History - Past Health History Medical/Surgical History: Denies Medical/Surgical History HEENT History: Reports: None Cardiovascular History: Reports: Blood Clots/VTE/DVT, Cardiomyopathy, Heart Failure, Hypertension, SOB on Exertion Respiratory History: Reports: SOB Gastrointestinal History: Reports: Cirrhosis, Gastritis, GERD Genitourinary History: Reports: Other (See Below) Other Genitourinary History: liver issues r/t ETOH Musculoskeletal History: Reports: Arthritis, Other (See Below) Other Musculoskeletal History: torn left and right upper arm tendon. missed surgery 03/2017 Neurological History: Reports: None Psychiatric History: Reports: Addiction, Anxiety, Depression, Panic Attack Other Psychiatric History: ETOH treatment last approx 10 years ago Endocrine/Metabolic History: Reports: None Hematologic History: Reports: None Immunologic History: Reports: None Oncologic (Cancer) History: Reports: None Dermatologic History: Reports: None - Infectious Disease History Infectious Disease History: Reports: None - Past Surgical History Head Surgeries/Procedures: Reports: None Cardiovascular Surgical History: Reports: AICD, Percutaneous Transluminal Angioplasty Respiratory Surgical History: Reports: None GI Surgical History: Reports: None Male Surgical History: Reports: None Neurological Surgical History: Reports: None Musculoskeletal Surgical History: Reports: None Social & Family History - Family History Family Medical History: Unobtainable Cardiac: Reports: Hypertension Other Cardiac Family History: Dad and paternal grandmother have hypertension. Respiratory: Reports: Asthma Other Respiratory Family Hisory: Mom and dad have asthma. Endocrine/Metabolic: Reports: Diabetes, Type I Other Endocrine/Metabolic Family History: Dad and paternal grandmother have type I diabetes. - Tobacco Use Smoking Status *Q: Former Smoker Tobacco Use Within Last Twelve Months: Cigarettes Years of Tobacco use: 30 - Caffeine Use Caffeine Use: Reports: Coffee, Tea - Alcohol Use Alcohol Use History: Yes Alcohol Use Frequency: Binges - Recreational Drug Use Recreational Drug Use: Yes Drug Use in Last 12 Months: Yes Recreational Drug Type: Reports: Amphetamines (Speed), Marijuana/Hashish, Methamphetamine Recreational Drug Use Frequency: Binges - Living Situation & Occupation Living situation: Reports: with Family Occupation: Unemployed ED ROS GENERAL - Review of Systems Review Of Systems: ROS reveals no pertinent complaints other than HPI. ED EXAM, GENERAL - Physical Exam Exam: See Below Exam Limited By: No Limitations General Appearance: Alert, No Apparent Distress, Anxious, Other (chronically ill appearing, also looks acutely ill but non-toxic) Eye Exam: Bilateral Eye: EOMI, Nystagmus (mild lateral gaze), PERRL, Other (no scleral icterus) Ears: Normal External Exam, Hearing Grossly Normal Nose: Normal Inspection, Normal Mucosa, No Blood Throat/Mouth: Normal Lips, Normal Oropharynx, Normal Voice, No Airway Compromise , Other (chronic dental decay, dry oral membranes) Head: Atraumatic, Normocephalic Neck: Normal Inspection, Supple, Non-Tender, Full Range of Motion. No: Lymphadenopathy (L), Lymphadenopathy (R) Respiratory/Chest: No Respiratory Distress, No Accessory Muscle Use, Chest Non- Tender, Decreased Breath Sounds, Crackles, Rales, Wheezing. No: Rhonchi, Splinting Cardiovascular: Regular Rate, Rhythm, No Edema, Tachycardia GI/Abdominal: Normal Bowel Sounds, Soft, Non-Tender, No Distention, No Abnormal Bruit. No: Guarding, Rigid, Rebound (Male) Exam: Deferred Rectal (Males) Exam: Deferred Back Exam: Normal Inspection, Full Range of Motion Extremities: Normal Inspection, Normal Range of Motion, Non-Tender, Normal Capillary Refill, No Pedal Edema Neurological: Alert, Oriented, Normal Cognition, No Motor/Sensory Deficits, Other (mild fine tremor of B/L upper extremities) Psychiatric: Anxious Skin Exam: Warm, Dry, Intact, Normal Color, No Rash EKG INTERPRETATION EKG Date: 11/12/17 Time: 09:42 Rhythm: Other (PACED: no further interpretation) Rate (Beats/Min): 103 QRS: RBBB Comparison: No Change Course - Vital Signs Last Recorded V/S: Last Vital Signs Temp 36.4 C 11/12/17 11:11 Pulse 61 11/12/17 11:11 Resp 15 11/12/17 11:11 BP 111/91 H 11/12/17 11:11 Pulse Ox 97 11/12/17 11:11 - Orders/Labs/Meds Orders: Active Orders 24 hr Category Date Time Status EKG 12 Lead [EKG Documentation Completion] [RC] STAT Care 11/12/17 09:34 Active Peripheral IV Care [RC] . DIRECTED Care 11/12/17 09:35 Active RT Aerosol Therapy [RC] ASDIRECTED Care 11/12/17 09:33 Active CULTURE BLOOD [BC] Stat Lab 11/12/17 10:05 Received CULTURE BLOOD [BC] Stat Lab 11/12/17 10:38 Received DRUG SCREEN URINE BIORAD [URCHEM] Stat Lab 11/12/17 10:08 Ordered UA W/MICROSCOPIC [URIN] Stat Lab 11/12/17 10:08 Ordered Magnesium Sulfate/Water [Magnesium Sulfate 2 GM in Med 11/12/17 10:53 Active Water 50 ML] 2 gm Premix Bag 1 bag IV ONETIME Sodium Chloride 0.9% [Saline Flush] Med 11/12/17 09:35 Active 10 ml FLUSH ASDIRECTED PRN Blood Culture x2 Reflex Set [OM.PC] Stat Oth 11/12/17 09:34 Ordered Peripheral IV Insertion Adult [OM.PC] Stat Oth 11/12/17 09:34 Ordered Medication Orders Magnesium Sulfate 2 gm/ Premix 50 mls @ 25 mls/hr IV ONETIME ONE Stop: 11/12/17 12:52 Last Admin: 11/12/17 11:18 Dose: 25 mls/hr Sodium Chloride (Saline Flush) 10 ml FLUSH ASDIRECTED PRN PRN Reason: Keep Vein Open Last Admin: 11/12/17 09:43 Dose: 10 ml Labs: Laboratory Tests 11/12/17 11/12/17 11/12/17 Range/Units 09:25 09:25 10:05 WBC 5.1 (5.0-10.0) 10^3/uL RBC 4.25 L (4.6-6.2) 10^6/uL Hgb 11.8 L (14.0-18.0) g/dL Hct 36.5 L (40.0-54.0) % MCV 85.9 (80-100) fL MCH 27.8 (27.0-34.0) pg MCHC 32.3 L (33.0-35.0) g/dL Plt Count 213 (150-450) 10^3/uL Neut % (Auto) 61.1 (42.2-75.2) % Lymph % (Auto) 19.9 L (20.5-50.1) % [place] % (Auto) 13.1 H (2-8) % Eos % (Auto) 4.3 H (1.0-3.0) % Baso % (Auto) 1.6 H (0.0-1.0) % Add Manual Diff Yes Neutrophils % (Manual) 63 (42-75) % Band Neutrophils % 3 % Lymphocytes % (Manual) 23 (20-50) % Monocytes % (Manual) 9 H (2-8) % Eosinophils % (Manual) 1 (1-3) % Basophils % (Manual) 1 PT 15.0 H (9.0-12.0) SEC INR 1.5 H (0.9-1.2) APTT 31.4 (22.0-34.0) SEC Sodium (135-145) mmol/L Potassium (3.6-5.0) mmol/L Chloride (101-111) mmol/L Carbon Dioxide (21.0-31.0) mmol/L Anion Gap BUN (7-18) mg/dL Creatinine (0.6-1.3) mg/dL Est Cr Clr Drug Dosing mL/min Estimated GFR (MDRD) BUN/Creatinine Ratio Glucose (74-105) mg/dL Lactic Acid (0.5-2.2) mmol/L Calcium (8.4-10.2) mg/dl Magnesium (1.8-2.5) mg/dL Total Bilirubin (0.2-1.0) mg/dL AST (10-42) IU/L ALT (10-60) IU/L Alkaline Phosphatase (42-121) IU/L Creatine Kinase 113 (26-174) IU/L Creatine Kinase Index 3.5 H (0-2.4) % CK-MB (CK-2) 3.90 (0.4-4.7) ng/mL Troponin I (0.00-0.02) ng/ml B-Natriuretic Peptide (0-100) pg/ml Total Protein (6.7-8.2) g/dl Albumin (3.2-5.5) g/dl Globulin Albumin/Globulin Ratio Amylase (28-100) U/L Lipase (22-51) U/L Urine Color (YELLOW) Urine Appearance (CLEAR) Urine pH (5.0-9.0) Ur Specific [place] (1.005-1.030) Urine Protein (NEGATIVE) Urine Glucose (UA) (NEGATIVE) Urine Ketones (NEGATIVE) Urine Occult Blood (NEGATIVE) Urine Nitrite (NEGATIVE) Urine Bilirubin (NEGATIVE) Urine Urobilinogen (0.2-1.0) mg/dL Ur Leukocyte Esterase (NEGATIVE) Urine RBC /HPF Urine WBC (0-5/HPF) /HPF Ur Epithelial Cells /HPF Urine Bacteria (0-FEW/HPF) /HPF Urine Mucus /LPF Digoxin (0-2.5) ng/ml Urine Opiates Screen (NEGATIVE) Ur Oxycodone Screen (NEGATIVE) Urine Methadone Screen (NEGATIVE) Ur Barbiturates Screen (NEGATIVE) U Tricyclic Antidepress (NEGATIVE) Ur Phencyclidine Scrn (NEGATIVE) Ur Amphetamine Screen (NEGATIVE) U Methamphetamines Scrn (NEGATIVE) Urine MDMA Screen (NEGATIVE) U Benzodiazepines Scrn (NEGATIVE) Urine Cocaine Screen (NEGATIVE) U Marijuana (THC) Screen (NEGATIVE) Ethyl Alcohol mg/dL 11/12/17 11/12/17 11/12/17 Range/Units 10:05 10:05 10:05 WBC (5.0-10.0) 10^3/uL RBC (4.6-6.2) 10^6/uL Hgb (14.0-18.0) g/dL Hct (40.0-54.0) % MCV (80-100) fL MCH (27.0-34.0) pg MCHC (33.0-35.0) g/dL Plt Count (150-450) 10^3/uL Neut % (Auto) (42.2-75.2) % Lymph % (Auto) (20.5-50.1) % [place] % (Auto) (2-8) % Eos % (Auto) (1.0-3.0) % Baso % (Auto) (0.0-1.0) % Add Manual Diff Neutrophils % (Manual) (42-75) % Band Neutrophils % % Lymphocytes % (Manual) (20-50) % Monocytes % (Manual) (2-8) % Eosinophils % (Manual) (1-3) % Basophils % (Manual) PT (9.0-12.0) SEC INR (0.9-1.2) APTT (22.0-34.0) SEC Sodium 139 (135-145) mmol/L Potassium 3.9 (3.6-5.0) mmol/L Chloride 102 (101-111) mmol/L Carbon Dioxide 27.0 (21.0-31.0) mmol/L Anion Gap 13.9 BUN 14 (7-18) mg/dL Creatinine 0.8 (0.6-1.3) mg/dL Est Cr Clr Drug Dosing 110.47 mL/min Estimated GFR (MDRD) > 60 BUN/Creatinine Ratio 17.50 Glucose 105 (74-105) mg/dL Lactic Acid 3.0 H (0.5-2.2) mmol/L Calcium 8.7 (8.4-10.2) mg/dl Magnesium 1.5 L (1.8-2.5) mg/dL Total Bilirubin 2.7 H (0.2-1.0) mg/dL AST 36 (10-42) IU/L ALT 16 (10-60) IU/L Alkaline Phosphatase 105 (42-121) IU/L Creatine Kinase (26-174) IU/L Creatine Kinase Index (0-2.4) % CK-MB (CK-2) (0.4-4.7) ng/mL Troponin I 0.04 H* (0.00-0.02) ng/ml B-Natriuretic Peptide 3060 H (0-100) pg/ml Total Protein 7.3 (6.7-8.2) g/dl Albumin 3.3 (3.2-5.5) g/dl Globulin 4.0 Albumin/Globulin Ratio 0.83 Amylase 35 (28-100) U/L Lipase 21 L (22-51) U/L Urine Color (YELLOW) Urine Appearance (CLEAR) Urine pH (5.0-9.0) Ur Specific [place] (1.005-1.030) Urine Protein (NEGATIVE) Urine Glucose (UA) (NEGATIVE) Urine Ketones (NEGATIVE) Urine Occult Blood (NEGATIVE) Urine Nitrite (NEGATIVE) Urine Bilirubin (NEGATIVE) Urine Urobilinogen (0.2-1.0) mg/dL Ur Leukocyte Esterase (NEGATIVE) Urine RBC /HPF Urine WBC (0-5/HPF) /HPF Ur Epithelial Cells /HPF Urine Bacteria (0-FEW/HPF) /HPF Urine Mucus /LPF Digoxin 0.4 (0-2.5) ng/ml Urine Opiates Screen (NEGATIVE) Ur Oxycodone Screen (NEGATIVE) Urine Methadone Screen (NEGATIVE) Ur Barbiturates Screen (NEGATIVE) U Tricyclic Antidepress (NEGATIVE) Ur Phencyclidine Scrn (NEGATIVE) Ur Amphetamine Screen (NEGATIVE) U Methamphetamines Scrn (NEGATIVE) Urine MDMA Screen (NEGATIVE) U Benzodiazepines Scrn (NEGATIVE) Urine Cocaine Screen (NEGATIVE) U Marijuana (THC) Screen (NEGATIVE) Ethyl Alcohol 27 mg/dL 11/12/17 11/12/17 Range/Units 10:08 10:08 WBC (5.0-10.0) 10^3/uL RBC (4.6-6.2) 10^6/uL Hgb (14.0-18.0) g/dL Hct (40.0-54.0) % MCV (80-100) fL MCH (27.0-34.0) pg MCHC (33.0-35.0) g/dL Plt Count (150-450) 10^3/uL Neut % (Auto) (42.2-75.2) % Lymph % (Auto) (20.5-50.1) % [place] % (Auto) (2-8) % Eos % (Auto) (1.0-3.0) % Baso % (Auto) (0.0-1.0) % Add Manual Diff Neutrophils % (Manual) (42-75) % Band Neutrophils % % Lymphocytes % (Manual) (20-50) % Monocytes % (Manual) (2-8) % Eosinophils % (Manual) (1-3) % Basophils % (Manual) PT (9.0-12.0) SEC INR (0.9-1.2) APTT (22.0-34.0) SEC Sodium (135-145) mmol/L Potassium (3.6-5.0) mmol/L Chloride (101-111) mmol/L Carbon Dioxide (21.0-31.0) mmol/L Anion Gap BUN (7-18) mg/dL Creatinine (0.6-1.3) mg/dL Est Cr Clr Drug Dosing mL/min Estimated GFR (MDRD) BUN/Creatinine Ratio Glucose (74-105) mg/dL Lactic Acid (0.5-2.2) mmol/L Calcium (8.4-10.2) mg/dl Magnesium (1.8-2.5) mg/dL Total Bilirubin (0.2-1.0) mg/dL AST (10-42) IU/L ALT (10-60) IU/L Alkaline Phosphatase (42-121) IU/L Creatine Kinase (26-174) IU/L Creatine Kinase Index (0-2.4) % CK-MB (CK-2) (0.4-4.7) ng/mL Troponin I (0.00-0.02) ng/ml B-Natriuretic Peptide (0-100) pg/ml Total Protein (6.7-8.2) g/dl Albumin (3.2-5.5) g/dl Globulin Albumin/Globulin Ratio Amylase (28-100) U/L Lipase (22-51) U/L Urine Color [place] (YELLOW) Urine Appearance Clear (CLEAR) Urine pH 5.5 (5.0-9.0) Ur Specific [place] >= 1.030 (1.005-1.030) Urine Protein >=300 H (NEGATIVE) Urine Glucose (UA) Negative (NEGATIVE) Urine Ketones Trace H (NEGATIVE) Urine Occult Blood Trace-lysed H (NEGATIVE) Urine Nitrite Negative (NEGATIVE) Urine Bilirubin Moderate H (NEGATIVE) Urine Urobilinogen 2.0 H (0.2-1.0) mg/dL Ur Leukocyte Esterase Negative (NEGATIVE) Urine RBC 0-5 /HPF Urine WBC Not seen (0-5/HPF) /HPF Ur Epithelial Cells Rare /HPF Urine Bacteria Not seen (0-FEW/HPF) /HPF Urine Mucus Many H /LPF Digoxin (0-2.5) ng/ml Urine Opiates Screen Negative (NEGATIVE) Ur Oxycodone Screen Positive H (NEGATIVE) Urine Methadone Screen Negative (NEGATIVE) Ur Barbiturates Screen Negative (NEGATIVE) U Tricyclic Antidepress Negative (NEGATIVE) Ur Phencyclidine Scrn Negative (NEGATIVE) Ur Amphetamine Screen Positive H (NEGATIVE) U Methamphetamines Scrn Positive H (NEGATIVE) Urine MDMA Screen Negative (NEGATIVE) U Benzodiazepines Scrn Positive H (NEGATIVE) Urine Cocaine Screen Negative (NEGATIVE) U Marijuana (THC) Screen Positive H (NEGATIVE) Ethyl Alcohol mg/dL Meds: Medications Generic Name Dose Route Start Last Admin Trade Name Freq PRN Reason Stop Dose Admin Magnesium Sulfate 2 gm/ Premix 50 mls @ 25 mls/hr 11/12/17 10:53 11/12/17 11: 18 IV 11/12/17 12:52 25 mls/hr ONETIME ONE Administration Sodium Chloride 10 ml 11/12/17 09:35 09/06/18 09:43 Saline Flush FLUSH 10 ml ASDIRECTED PRN Administration Keep Vein Open Discontinued Medications Generic Name Dose Route Start Last Admin Trade Name Walter PRN Reason Stop Dose Admin Albuterol/Ipratropium 3 ml 11/12/17 09:32 11/12/17 09:49 Duoneb 3.0-0.5 Mg/3 Ml NEB 11/12/17 09:33 3 ml ONETIME ONE Administration Aspirin 324 mg 11/12/17 09:32 11/12/17 09:42 Aspirin PO 11/12/17 09:33 324 mg ONETIME ONE Administration Furosemide 80 mg 11/12/17 09:58 11/12/17 10:12 Lasix IVPUSH 11/12/17 09:59 80 mg NOW ONE Administration Lorazepam 1 mg 11/12/17 09:59 11/12/17 10:13 Ativan IVPUSH 11/12/17 10:00 1 mg ONETIME ONE Administration Lorazepam 1 mg 11/12/17 11:13 Ativan IVPUSH 11/12/17 11:14 ONETIME ONE Ondansetron HCl 4 mg 11/12/17 09:32 11/12/17 09:43 Zofran IV 11/12/17 09:33 4 mg ONETIME ONE Administration Ondansetron HCl 4 mg 11/12/17 11:13 Zofran IV 11/12/17 11:14 ONETIME ONE - Radiology Interpretation Free Text/Narrative:: 2V CXR: chronic cardiomegaly, no acute changes in comparison to prior studies per Rad. report. - Re-Assessments/Exams Free Text/Narrative Re-Assessment/Exam: 11/12/17 11:30 Troponin is chronically elevated, and at baseline. Non-compliance and EtOH/ substance abuse are obviously compromising the pt's health and are contributing to a progressive decline in the pt's condition. Pt will be admitted to Dr. Suazo hospitalist service. Departure - Departure Time of Disposition: 11:09 Disposition: Home, Self-Care 01 Condition: Serious Clinical Impression: CHF, Congestive heart failure, Alcohol abuse, Polysubstance abuse, Methamphetamine abuse, Noncompliance with medication regimen, Hypomagnesemia Alcohol withdrawal Qualifiers: Complication of substance-induced condition: with unspecified complication Qualified Code(s): F10.239 - Alcohol dependence with withdrawal, unspecified Acute alcoholic gastritis Qualifiers: Gastritis bleeding: without bleeding Qualified Code(s): K29.20 - Alcoholic gastritis without bleeding Vomiting Qualifiers: Vomiting type: unspecified Vomiting Intractability: non-intractable Nausea presence: with nausea Qualified Code(s): R11.2 - Nausea with vomiting, unspecified - Discharge Information Forms: ED Department Discharge - My Orders Last 24 Hours: My Active Orders 11/12/17 09:33 RT Aerosol Therapy [RC] ASDIRECTED 11/12/17 09:34 EKG 12 Lead [EKG Documentation Completion] [RC] STAT Blood Culture x2 Reflex Set [OM.PC] Stat Peripheral IV Insertion Adult [OM.PC] Stat 11/12/17 09:35 Peripheral IV Care [RC] . DIRECTED Sodium Chloride 0.9% [Saline Flush] 10 ml FLUSH ASDIRECTED PRN 11/12/17 10:05 CULTURE BLOOD [BC] Stat 11/12/17 10:08 DRUG SCREEN URINE BIORAD [URCHEM] Stat UA W/MICROSCOPIC [URIN] Stat 11/12/17 10:38 CULTURE BLOOD [BC] Stat 11/12/17 10:53 Magnesium Sulfate/Water [Magnesium Sulfate 2 GM in Water 50 ML] 2 gm Premix Bag 1 bag IV ONETIME - Assessment/Plan Last 24 Hours: My Active Orders 11/12/17 09:33 RT Aerosol Therapy [RC] ASDIRECTED 11/12/17 09:34 EKG 12 Lead [EKG Documentation Completion] [RC] STAT Blood Culture x2 Reflex Set [OM.PC] Stat Peripheral IV Insertion Adult [OM.PC] Stat 11/12/17 09:35 Peripheral IV Care [RC] . DIRECTED Sodium Chloride 0.9% [Saline Flush] 10 ml FLUSH ASDIRECTED PRN 11/12/17 10:05 CULTURE BLOOD [BC] Stat 11/12/17 10:08 DRUG SCREEN URINE BIORAD [URCHEM] Stat UA W/MICROSCOPIC [URIN] Stat 11/12/17 10:38 CULTURE BLOOD [BC] Stat 11/12/17 10:53 Magnesium Sulfate/Water [Magnesium Sulfate 2 GM in Water 50 ML] 2 gm Premix Bag 1 bag IV ONETIME
[2017-11-12] MEDS ORDERED: Albuterol/Ipratropium 3.0-0.5 MG/3 ML Neb Soln NEB ONE (09:32)
[2017-11-12] MEDS ORDERED: Aspirin 81 MG Tab.Chew PO ONE (09:32)
[2017-11-12] MEDS ORDERED: Ondansetron 4 MG/2 ML SDV IV ONE ×2 (09:32→11:13)
[2017-11-12] MEDS: Sodium Chloride 0.9% 10 ML Syringe FLUSH PRN (09:43)
[2017-11-12] MEDS ORDERED: Furosemide 40 MG/4 ML VIAL IVPUSH ONE (09:58)
[2017-11-12] MEDS ORDERED: LORazepam 2 MG/ML Syringe IVPUSH ONE ×2 (09:59→11:13)
--- NOTE | 2017-11-12 10:19 | CR ---
Clinical history: 52-year-old male shortness of breath and dyspnea. Interpretation: Chronically abnormal appearance chest radiograph unchanged except for technique since 05 November 2017 and 18 October 2017 films. Markedly enlarged cardiac silhouette; chronic abnormally prominent pulmonary artery segments. Cardiac pacemaker leads intact. No new signs of alveolar edema or dependent pleural fluid accumulation. No new lung mass, hilar lymphadenopathy or focal lobar pneumonia.
[2017-11-12 10:41] LABS: ANION GAP 13.9; CHLORIDE,CL 102 mmol/L (101-111); SODIUM,NA 139 mmol/L (135-145)
[2017-11-12] MEDS ORDERED: Magnesium Sulfate/Water 2 GM in Premix Bag 1 BAG IV ONE (10:53)
[2017-11-12] MEDS ORDERED: Magnesium Hydroxide 400 MG/5 ML Susp 30 ML Cup PO PRN (11:49)
[2017-11-12] MEDS ORDERED: Bisacodyl 10 MG Supp RECTAL PRN (11:49)
[2017-11-12] MEDS ORDERED: Furosemide 40 MG/4 ML VIAL IVPUSH SCH (14:00)
[2017-11-12] MEDS: Spironolactone 25 MG Tab PO SCH (14:39)
[2017-11-12] MEDS: ALPRAZolam 0.25 MG Tab PO PRN ×2 (15:22→21:30)
[2017-11-12] MEDS: Carvedilol 6.25 MG Tab PO SCH (17:17)
[2017-11-12] MEDS: Potassium Chloride 10 MEQ Tab.ER PO SCH (17:17)
[2017-11-12] MEDS: LORazepam 0.5 MG Tab PO SCH ×2 (18:09→19:18)
[2017-11-12] MEDS: LORazepam 2 MG/ML Syringe IVPUSH PRN ×3 (21:42→23:55)
[2017-11-13] MEDS: LORazepam 2 MG/ML Syringe IVPUSH PRN ×3 (00:47→05:06)
[2017-11-13] MEDS ORDERED: Furosemide 40 MG/4 ML VIAL IVPUSH ONE (01:01)
[2017-11-13] MEDS: Pantoprazole 40 MG Tab.CR PO SCH (05:33)
[2017-11-13] MEDS: Sodium Chloride 0.9% 10 ML Syringe FLUSH PRN ×2 (08:23→13:09)
[2017-11-13] MEDS: Furosemide 40 MG/4 ML VIAL IVPUSH SCH ×2 (08:24→13:10)
--- NOTE | 2017-11-13 10:14 | PN ---
DATE: 11/13/2017 SUBJECTIVE: The patient is a 52-year-old male with history of cardiomyopathy, AICD placement, alcohol and meth addiction, and chronic medical noncompliance; admitted because of CHF exacerbation and because of noncompliance with the medication. The patient last night started showing some delirium tremens, and the patient has been getting lorazepam for this. The patient this morning is sleepy but looks comfortable, but on occasion, he would have some episodes of tachypnea and it would improve. OBJECTIVE: Vital Signs: This morning, blood pressure is 101/63, pulse of 110, respiration is 16, and temperature is 98.8. Heart: Regular rate and rhythm. Lungs: Diminished breath sounds on both bases with faint crackles on both bases but no rubs. Abdomen: Soft and nontender. Bowel sounds positive. Extremities: Negative for any calf tenderness. MEDICATIONS: Reviewed. PLAN: We will continue with his present management, and we will continue with the DT protocol; and we will recheck a CBC, comp panel, and magnesium level in the a.m. [facility] /[id number]
--- NOTE | 2017-11-13 10:26 | HP ---
CHIEF COMPLAINT: Shortness of breath. BRIEF HISTORY OF PRESENT ILLNESS: Jonathan Karimi is a 52-year-old male, well known to the staff for his frequent ER visits and frequent admissions. He has a history of significant cardiac history. He has a known history of nonischemic cardiomyopathy with an ejection fraction of approximately 10%. He also has a long history of medical noncompliance and once again had stopped taking his medications for at least the last 2 days. Unfortunately, he also has a history of alcohol and drug addiction, and he continues to drink on a daily basis and has been taking meth. He continues to smoke on a daily basis as well. Recent cardiac history: Jonathan was recently admitted to [facility] from 10/19 to 10/22 after once again presenting with shortness of breath and noncompliance with medications. He is fluid overloaded and was treated with fluid restriction and IV Lasix. The pacemaker was interrogated and on interrogation was unremarkable. He was then discharged to home. Blood pressures were noted to be quite low during that hospitalization, and his Lasix was cut back to 40 mg twice a day. He was to follow up with Cardiology 1 week after the admission, and was no-show for his Cardiology appointment on 11/02, canceled his followup at the clinic with Ms. Medeiros and canceled his hospital followup again with Ms. Castillo at the clinic. He now is scheduled to see the CHF nurse on 11/25, but review of his chart shows that he basically does not show up for visits. His most recent echocardiogram on 10/20 during the last [facility] admission showed severe mitral regurgitation, moderate tricuspid regurgitation, right ventricular pressure was 60 mmHg. He presented to the emergency room stating he had been off his meds for at least the last 2 days with increasing shortness of breath and some nausea. Workup in the ER included a chest x-ray, which was essentially unchanged from 2 previous studies in October of this year. It showed no increase in pulmonary venous congestion, but showed chronic changes, no pneumonia, no infiltrates. A 12-lead EKG showed sinus tachycardia with paced rhythm. Lab work showed a chronically elevated BNP and chronically elevated troponin, and he was admitted for further management. 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 Ejection fraction of 10% or less with an AICD/pacemaker in place. Cirrhosis of the liver, history of methamphetamine abuse, history of marijuana abuse, tobacco habituation, chronic medical noncompliance, history of PE, congestive heart failure secondary to nonischemic cardiomyopathy, COPD, pulmonary hypertension, valvular heart disease. PAST SURGICAL HISTORY: Resection of lipoma, age 26. AICD/pacemaker placement. SOCIAL HISTORY: He is single, has no children. Continues to smoke at least half pack of cigarettes a day. Chronic alcohol abuse, chronic methamphetamine abuse. FAMILY HISTORY: Diabetes in father and paternal grandmother. Heart disease in paternal grandmother. IMMUNIZATION HISTORY: Influenza 12/04/2016. PPV 10/04/2015. Tdap 02/20/2011. MEDICATIONS: 1. Carvedilol 6.25 mg b.i.d. 2. Potassium chloride 40 mEq b.i.d. 3. Alprazolam 0.25 mg b.i.d. p.r.n. 4. Albuterol HFA 2 puffs q.6 hours p.r.n. 5. Advair 250/50 one puff every 12 hours. 6. Spironolactone 25 mg daily. 7. Pantoprazole 40 mg daily. 8. Lisinopril 2.5 mg daily. 9. Digoxin 0.25 mg daily. 10.Melatonin 3 mg at bedtime. ALLERGIES: No known allergies. PHYSICAL EXAMINATION: General: He is lying flat in the bed. Does not appear short of breath, is able to talk in complete sentences. He tends to ramble when you talk to him, and he does not really focus on the questions being asked. He does not appear to be in any acute distress. Vital Signs: Blood pressure 107/87 on the left, 110/77 on the right. Pulse 101 and regular, respiratory rate 20, oxygen saturation 100% on room air. He is afebrile. Weight 176 pounds, height 5 feet 9 inches. He had been given 80 mg of IV Lasix in the Emergency Department. He stated he had not voided very much since that time. Unfortunately, he has been emptying his urine when he is in the bathroom, and nurses have been unable to keep an adequate track of his output and response of the diuretic. HEENT: Unremarkable. ENT is clear. No prominent distention. Chest: Shows diminished bilateral breath sounds with occasional wheeze and scattered rales at the bases. Heart: Shows regular rate and rhythm. Abdomen: Obese, soft, and benign. Extremities: Shows no edema. Calves are soft and nontender. Neurologic: He is intact. LABORATORY AND DIAGNOSTIC DATA: CBC showed normal white count and platelets. Hemoglobin and hematocrit 11.8 and 36.5. Baseline INR was 1.5. PTT was within normal limits. Electrolytes were normal. BUN and creatinine 14 and 0.8 with a GFR of more than 60. Lactic acid was elevated at 3.0, total bilirubin was 2.7, magnesium 1.5. Troponin was 0.04; however, review of his Alt admission shows he runs a chronically elevated troponin. BNP today was 3060 and again his BNP has chronically ranged from 3000s up to 6500 in his [facility] chart. Albumin was normal at 3.3. Urinalysis was unremarkable. Urine toxicology was positive for oxycodone, methamphetamines, benzodiazepines, THC. Blood alcohol was 27 and stated his last drink was about 4 days ago. EKG: A 12-lead EKG was performed, which showed atrial sensed and ventricular paced complexes with average ventricular rate of 103 with a right bundle-branch block. No other comments are made. Two-view chest x-ray was compared to previous studies from 10/18 and 11/05/2017. He has marked cardiomegaly with chronically abnormal prominent pulmonary artery segments. Pacemaker leads were intact. No signs of any new acute pleural fluid accumulations, pneumonia, mass, or adenopathy. IMPRESSION: A 52-year-old male with many previous admissions for the same complaints. Once again, presents with shortness of breath and noncompliance with his medications for several days as well as positive drug screens. PLAN: 1. Jonathan was admitted to observation. In the ER, he was given 80 mg of IV Lasix as well as 2 g of IV magnesium. 2. His medications were reconciled, and he was started back on his usual medications. 3. His magnesium level today was 1.5. He was given 2 g IV magnesium in the emergency room, and we started him on magnesium oxide 250 mg twice a day. 4. Elevated BNP of 3060. Repeat BNP was ordered for tomorrow morning. Review of his Alt chart shows that his BNPs are chronically elevated between 3000 and 6000. 5. Troponin of 0.04. Again, his troponins are chronically elevated due to his cardiomyopathy. 6. Fluid overload. He was given 80 mg IV Lasix in the ER. We will continue with his usual dose of 40 mg twice a day by IV route. It should be noted that his Lasix had been cut back during his last hospital admission from 80 mg twice a day to 40 mg twice a day because of hypotension. 7. Chronic medical noncompliance. We once again talked to Jonathan about the need to be compliant. Unfortunately, this is an ongoing chronic problem, and really, he is not able to grasp the fact that these medications are necessary for his health and survival. CODE STATUS: Full code. CONDITION AT THE TIME OF ADMISSION: Relatively stable with chronic medical conditions as above. [facility] /[id number]
[2017-11-13] MEDS: Carvedilol 6.25 MG Tab PO SCH ×2 (12:20→17:37)
[2017-11-13] MEDS: Potassium Chloride 10 MEQ Tab.ER PO SCH ×2 (12:22→17:36)
[2017-11-13] MEDS: Spironolactone 25 MG Tab PO SCH (12:22)
[2017-11-13] MEDS: Lisinopril 5 MG Tab PO SCH (12:27)
[2017-11-13] MEDS: Digoxin 250 MCG Tab PO SCH (12:28)
[2017-11-13] MEDS: Enoxaparin 40 MG/0.4 ML Syringe SUBCUT SCH (12:38)
[2017-11-13] MEDS: ALPRAZolam 0.25 MG Tab PO PRN ×2 (12:43→22:43)
[2017-11-13] MEDS: LORazepam 0.5 MG Tab PO PRN ×5 (14:15→22:43)
[2017-11-13] MEDS: Acetaminophen 325 MG Tab PO PRN (23:31)
[2017-11-13] MEDS: Albuterol 0.083% 2.5 MG/3 ML Neb Soln NEB PRN (23:33)
[2017-11-13] MEDS ORDERED: Haloperidol Lactate 5 MG/ML SDV IVPUSH ONE (23:59)
[2017-11-14] MEDS: LORazepam 2 MG/ML Syringe IVPUSH PRN ×2 (00:58→04:10)
[2017-11-14] MEDS ORDERED: diphenhydrAMINE 50 MG/ML SDV IVPUSH ONE (03:04)
[2017-11-14 03:23] LABS: BASE EXCESS ARTERIAL 0 mmol/L ((-2)-(+3)); BICARBONATE,ARTERIAL 23.3 mmol/L (22-26); O2 DELIVERY DEVICE ROOM AIR; O2 SATURATION ARTERIAL 86 % (95-100); PCO2 ARTERIAL 37 mmHg (35-45); PO2 ARTERIAL 53 mmHg (70-100)
[2017-11-14 03:25] LABS: ALLEN TEST ND brachial
[2017-11-14 03:41] LABS: ANION GAP 15.9
[2017-11-14] MEDS: Pantoprazole 40 MG Tab.CR PO SCH (09:19)
[2017-11-14] MEDS: Potassium Chloride 10 MEQ Tab.ER PO SCH ×2 (09:19→17:22)
[2017-11-14] MEDS: Carvedilol 6.25 MG Tab PO SCH ×2 (09:20→17:22)
[2017-11-14] MEDS: Digoxin 250 MCG Tab PO SCH (09:20)
[2017-11-14] MEDS: Spironolactone 25 MG Tab PO SCH (09:20)
[2017-11-14] MEDS: Lisinopril 5 MG Tab PO SCH (09:22)
[2017-11-14] MEDS: LORazepam 0.5 MG Tab PO PRN ×2 (09:22→16:49)
[2017-11-14] MEDS: Furosemide 40 MG/4 ML VIAL IVPUSH SCH ×2 (09:24→14:35)
[2017-11-14] MEDS: Sodium Chloride 0.9% 10 ML Syringe FLUSH PRN ×3 (09:25→14:35)
[2017-11-14] MEDS: Enoxaparin 40 MG/0.4 ML Syringe SUBCUT SCH (09:25)
[2017-11-14] MEDS: cefTRIAXone 1 GM Vial IVPUSH SCH (09:35)
--- NOTE | 2017-11-14 09:40 | PN ---
DATE: 11/14/2017 SUBJECTIVE: The patient again last night had agitation from delirium tremens, and the patient received several doses of Ativan, and the patient also received Haldol IV as well as Benadryl. The patient's telemetry went into paced rhythm. Last night, he settled down with the medication; and this morning, the patient is awake and comfortable and doing much better. The patient's telemetry is back to sinus rhythm. LABORATORY DATA: Lab workup that was done early this morning: CBC: WBC 6.2, hemoglobin is 11, hematocrit is 34, and platelet is 201. Blood gas: PH was 7.42, pCO2 of 37, pO2 of 53, and saturation is 86%; this was on room air. Comp panel: BUN is 26, creatinine is 1.4. The rest of the panel is unremarkable. Magnesium level is 1.7, troponin is 0.05, and BNP is 3350 which is slightly better from yesterday. The patient currently denies any ongoing complaints. Denies any chest pain or worsening of shortness of breath. He has some coughing spells, but he denies any abdominal pain nor any other complaints. OBJECTIVE: Vital Signs: Blood pressure is 94/78, pulse of 83, respirations of 24, temperature of 97.4, and saturation is 93% on 2 L per nasal cannula. Heart: Regular rate and rhythm. No rubs. Lungs: Remarkable for some crackles on the left lung field with some rhonchi, but breath sounds equal. Abdomen: Soft and nontender. Bowel sounds positive. Extremities: Negative for any significant pedal edema. No calf tenderness. MEDICATIONS: Reviewed. PLAN: We will continue with DT protocol, and we will continue with his current regimen. I am going to empirically start the patient on Rocephin 1 g IV daily because of bronchitis/pneumonitis symptoms. [facility] /[id number]
[2017-11-15] MEDS: LORazepam 0.5 MG Tab PO PRN ×6 (00:24→17:12)
[2017-11-15] MEDS: Albuterol 0.083% 2.5 MG/3 ML Neb Soln NEB PRN ×2 (02:17→22:11)
[2017-11-15] MEDS: ALPRAZolam 0.25 MG Tab PO PRN (03:04)
[2017-11-15] MEDS: Pantoprazole 40 MG Tab.CR PO SCH (05:20)
[2017-11-15] MEDS: Lisinopril 5 MG Tab PO SCH (09:10)
[2017-11-15] MEDS: Carvedilol 6.25 MG Tab PO SCH ×2 (09:11→17:13)
[2017-11-15] MEDS: Furosemide 40 MG/4 ML VIAL IVPUSH SCH ×2 (09:12→14:44)
[2017-11-15] MEDS: Digoxin 250 MCG Tab PO SCH (09:12)
[2017-11-15] MEDS: Potassium Chloride 10 MEQ Tab.ER PO SCH ×2 (09:12→17:11)
[2017-11-15] MEDS: Spironolactone 25 MG Tab PO SCH (09:12)
[2017-11-15] MEDS: Sodium Chloride 0.9% 10 ML Syringe FLUSH PRN ×2 (09:14→14:43)
[2017-11-15] MEDS: cefTRIAXone 1 GM Vial IVPUSH SCH (09:18)
[2017-11-15] MEDS: Enoxaparin 40 MG/0.4 ML Syringe SUBCUT SCH (09:18)
[2017-11-15] MEDS: Acetaminophen 325 MG Tab PO PRN ×3 (12:42→22:10)
[2017-11-15] MEDS ORDERED: LORazepam 1 MG Tab PO PRN (20:19)
[2017-11-16] MEDS: Pantoprazole 40 MG Tab.CR PO SCH (06:24)
--- NOTE | 2017-11-16 07:21 | PN ---
DATE: 11/15/2017 SUBJECTIVE: The patient was doing well last night and this morning, he is feeling better. He still has some coughing spells though and occasional wheezing, but he denies any chest pain, orthopnea, PND, abdominal pain, or any other complaints. OBJECTIVE: Vital Signs: Blood pressure is 98/60, pulse of 64, respirations of 24, temperature of 97. Heart: Regular rate and rhythm. No rubs. Lungs: Diminished breath sounds on both bases with mild expiratory wheeze, and there is still some faint crackles on the left lung field. Abdomen: Soft and nontender. Bowel sounds are positive. Extremities: Negative for any significant pedal edema. No calf tenderness. MEDICATIONS: Reviewed. PLAN: We will continue with his present management and we will continue with IV antibiotics. [facility] /[id number]
[2017-11-16] MEDS: Enoxaparin 40 MG/0.4 ML Syringe SUBCUT SCH (09:02)
[2017-11-16] MEDS: Furosemide 40 MG/4 ML VIAL IVPUSH SCH (09:02)
[2017-11-16] MEDS: Potassium Chloride 10 MEQ Tab.ER PO SCH (09:02)
[2017-11-16] MEDS: Digoxin 250 MCG Tab PO SCH (09:02)
[2017-11-16] MEDS: cefTRIAXone 1 GM Vial IVPUSH SCH (09:02)
[2017-11-16] MEDS: Spironolactone 25 MG Tab PO SCH (09:02)
[2017-11-16] MEDS: ALPRAZolam 0.25 MG Tab PO PRN (09:22)
[2017-11-16] MEDS: Albuterol 0.083% 2.5 MG/3 ML Neb Soln NEB PRN (09:47)
[2017-11-16] MEDS: Lisinopril 5 MG Tab PO SCH (10:02)
[2017-11-16] MEDS: Carvedilol 6.25 MG Tab PO SCH (10:02)
[2017-11-16 11:19] VITALS: BP 102/62
--- NOTE | 2017-11-16 11:20 | EKG ---
11/12/2017- MANNIE MEREDITH - A 12-lead EKG shows atrial sensed and ventricular paced complexes with a ventricular rate of 103. There is also a right bundle branch block. No further comments are made. [facility] /[id number]
== END 2017-11-16 12:22 | disposition home or self-care (01) | DRG 291 ==
LOC: DL.ED 09:17 → UNDOADMOB 11:47 → DL.MS 11:47 → UNDOADMOB 11:49 → DL.MS 11:49 → UNDOADMOB 11-13 11:43 → OBSVTOIN 11-13 11:45 → INTOOBSV 11-13 11:45 → DL.MS 11-14 05:37
PROVIDERS: ADMIT Internal Medicine; ATTEND Internal Medicine
DX: I11.0 Hypertensive heart disease with heart failure (principal); J18.9 Pneumonia, unspecified organism; F10.231 Alcohol dependence with withdrawal delirium; F15.20 Other stimulant dependence, uncomplicated; J44.0 Chronic obstructive pulmonary disease with (acute) lower respiratory infection; I42.6 Alcoholic cardiomyopathy; J20.9 Acute bronchitis, unspecified; I50.9 Heart failure, unspecified; E83.42 Hypomagnesemia; K29.20 Alcoholic gastritis without bleeding; Z91.14 Patient's other noncompliance with medication regimen; F17.210 Nicotine dependence, cigarettes, uncomplicated; Y90.1 Blood alcohol level of 20-39 mg/100 ml; I45.10 Unspecified right bundle-branch block; I34.0 Nonrheumatic mitral (valve) insufficiency; K70.30 Alcoholic cirrhosis of liver without ascites; Z86.711 Personal history of pulmonary embolism; Z95.810 Presence of automatic (implantable) cardiac defibrillator; Z79.899 Other long term (current) drug therapy
CPT/HCPCS: 36415; 36600; 71046; 80048; 80053; 80162; 80305-QW; 81001; 82150; 82550; 82553; 82803; 83605; 83690; 83735; 83880; 84484; 85025; 85610; 85730; 87040; 93005; 94640; 96365; 96366; 96375; 96376; 99285; A9270-GY; G0378; G0480; J0696; J1200; J1630; J1650; J1940; J2060; J2405; J3475; J7050; J7613-GY; J7620-GY

== ENCOUNTER 2017-11-20 04:44 | Emergency (ER) | payer MEDICAID ==
--- NOTE | 2017-11-20 05:02 | EDM.PDOC ---
ED HPI GENERAL MEDICAL PROBLEM - General Chief Complaint: Respiratory Problem Stated Complaint: AMBULANCE Time Seen by Provider: 11/20/17 04:58 Source of Information: Reports: Patient History Limitations: Reports: No Limitations - History of Present Illness INITIAL COMMENTS - FREE TEXT/NARRATIVE: was admitted here for pneumonia and d/c Thursday, still not better with cough & SOB. denies CP only when coughs. Abdomen Pain Score (Numeric/FACES): 7 - Related Data Allergies Allergy/AdvReac Type Severity Reaction Status Date / Time No Known Allergies Allergy Verified 11/21/17 20:06 Home Meds: Home Meds ALPRAZolam [Xanax] 0.25 mg PO BID PRN 07/31/17 [History] Digoxin 0.25 mg PO DAILY 07/31/17 [History] Fluticasone/Salmeterol [Advair 250-50 Diskus] 1 puff INH Q12H 07/31/17 [History] Pantoprazole Sodium [Protonix] 40 mg PO DAILY 07/31/17 [History] Furosemide [Lasix] 40 mg PO BID 08/20/17 [History] Carvedilol 6.25 mg PO BID 11/12/17 [History] Ibuprofen 600 mg PO Q8H PRN MDD pain 11/12/17 [History] Lisinopril 2.5 mg PO DAILY 11/12/17 [History] Melatonin/Pyridoxine HCl (B6) [Melatonin 3 mg Tablet] 3 mg PO BEDTIME 11/12/17 [ History] Potassium Chloride 40 meq PO BID 11/12/17 [History] Spironolactone [Aldactone] 25 mg PO DAILY 11/12/17 [History] Albuterol [Proventil Neb Soln] 2.5 mg NEB Q6HRRT PRN neb 11/16/17 [Rx] Past Medical History - Past Health History Medical/Surgical History: Denies Medical/Surgical History HEENT History: Reports: None Cardiovascular History: Reports: Blood Clots/VTE/DVT, Cardiomyopathy, Heart Failure, Hypertension, SOB on Exertion Respiratory History: Reports: SOB Gastrointestinal History: Reports: Cirrhosis, Gastritis, GERD Genitourinary History: Reports: Other (See Below) Other Genitourinary History: liver issues r/t ETOH Musculoskeletal History: Reports: Arthritis, Other (See Below) Other Musculoskeletal History: torn left and right upper arm tendon. missed surgery 03/2017 Neurological History: Reports: None Psychiatric History: Reports: Addiction, Anxiety, Depression, Panic Attack Other Psychiatric History: ETOH treatment last approx 10 years ago Endocrine/Metabolic History: Reports: None Hematologic History: Reports: None Immunologic History: Reports: None Oncologic (Cancer) History: Reports: None Dermatologic History: Reports: None - Infectious Disease History Infectious Disease History: Reports: None - Past Surgical History Head Surgeries/Procedures: Reports: None Cardiovascular Surgical History: Reports: AICD, Percutaneous Transluminal Angioplasty Respiratory Surgical History: Reports: None GI Surgical History: Reports: None Male Surgical History: Reports: None Neurological Surgical History: Reports: None Musculoskeletal Surgical History: Reports: None Social & Family History - Family History Family Medical History: Unobtainable Cardiac: Reports: Hypertension Other Cardiac Family History: Dad and paternal grandmother have hypertension. Respiratory: Reports: Asthma Other Respiratory Family Hisory: Mom and dad have asthma. Endocrine/Metabolic: Reports: Diabetes, Type I Other Endocrine/Metabolic Family History: Dad and paternal grandmother have type I diabetes. - Tobacco Use Smoking Status *Q: Never Smoker - Caffeine Use Caffeine Use: Reports: Coffee - Recreational Drug Use Recreational Drug Use: Yes Drug Use in Last 12 Months: Yes Recreational Drug Type: Reports: Marijuana/Hashish, Methamphetamine, Oxycodone Recreational Drug Use Frequency: Binges - Living Situation & Occupation Living situation: Reports: with Family Occupation: Unemployed ED ROS GENERAL - Review of Systems Review Of Systems: ROS reveals no pertinent complaints other than HPI. ED EXAM, GENERAL - Physical Exam Exam: See Below Exam Limited By: No Limitations General Appearance: Alert, WD/WN, Mild Distress, Other (cough) Ears: Hearing Grossly Normal Throat/Mouth: Normal Voice, No Airway Compromise Head: Atraumatic Neck: Non-Tender, Full Range of Motion Respiratory/Chest: No Accessory Muscle Use, Rales, Rhonchi Cardiovascular: Regular Rate, Rhythm GI/Abdominal: Soft, Non-Tender Extremities: No Pedal Edema Neurological: Alert, Oriented, Normal Cognition, No Motor/Sensory Deficits Psychiatric: Normal Affect, Normal Mood Skin Exam: Warm, Dry, Normal Color Lymphatic: No Adenopathy Course - Vital Signs Last Recorded V/S: Last Vital Signs Temp 36.5 C 11/20/17 04:46 Pulse 85 11/20/17 06:48 Resp 20 09/14/18 06:48 BP 109/66 11/20/17 06:48 Pulse Ox 100 11/20/17 06:48 - Orders/Labs/Meds Labs: Laboratory Tests 11/20/17 11/20/17 11/20/17 Range/Units 04:54 04:54 04:54 WBC 7.5 (5.0-10.0) 10^3/uL RBC 4.21 L (4.6-6.2) 10^6/uL Hgb 11.3 L (14.0-18.0) g/dL Hct 35.6 L (40.0-54.0) % MCV 84.6 (80-100) fL MCH 26.8 L (27.0-34.0) pg MCHC 31.7 L (33.0-35.0) g/dL Plt Count 212 (150-450) 10^3/uL Neut % (Auto) 62.8 (42.2-75.2) % Lymph % (Auto) 19.6 L (20.5-50.1) % Donley % (Auto) 9.3 H (2-8) % Eos % (Auto) 7.2 H (1.0-3.0) % Baso % (Auto) 1.1 H (0.0-1.0) % Sodium 137 (135-145) mmol/L Potassium 4.0 (3.6-5.0) mmol/L Chloride 106 (101-111) mmol/L Carbon Dioxide 21.0 (21.0-31.0) mmol/L Anion Gap 14.0 BUN 17 (7-18) mg/dL Creatinine 1.0 (0.6-1.3) mg/dL Est Cr Clr Drug Dosing 88.38 mL/min Estimated GFR (MDRD) > 60 BUN/Creatinine Ratio 17.00 Glucose 114 H (74-105) mg/dL Lactic Acid 1.1 (0.5-2.2) mmol/L Calcium 8.3 L (8.4-10.2) mg/dl Total Bilirubin 2.3 H (0.2-1.0) mg/dL AST 30 (10-42) IU/L ALT 14 (10-60) IU/L Alkaline Phosphatase 127 H (42-121) IU/L Troponin I 0.03 H* (0.00-0.02) ng/ml B-Natriuretic Peptide 2720 H (0-100) pg/ml Total Protein 7.2 (6.7-8.2) g/dl Albumin 3.2 (3.2-5.5) g/dl Globulin 4.0 Albumin/Globulin Ratio 0.80 Urine Opiates Screen (NEGATIVE) Ur Oxycodone Screen (NEGATIVE) Urine Methadone Screen (NEGATIVE) Ur Barbiturates Screen (NEGATIVE) U Tricyclic Antidepress (NEGATIVE) Ur Phencyclidine Scrn (NEGATIVE) Ur Amphetamine Screen (NEGATIVE) U Methamphetamines Scrn (NEGATIVE) Urine MDMA Screen (NEGATIVE) U Benzodiazepines Scrn (NEGATIVE) Urine Cocaine Screen (NEGATIVE) U Marijuana (THC) Screen (NEGATIVE) Ethyl Alcohol < 5 mg/dL 11/20/17 Range/Units 04:59 WBC (5.0-10.0) 10^3/uL RBC (4.6-6.2) 10^6/uL Hgb (14.0-18.0) g/dL Hct (40.0-54.0) % MCV (80-100) fL MCH (27.0-34.0) pg MCHC (33.0-35.0) g/dL Plt Count (150-450) 10^3/uL Neut % (Auto) (42.2-75.2) % Lymph % (Auto) (20.5-50.1) % Donley % (Auto) (2-8) % Eos % (Auto) (1.0-3.0) % Baso % (Auto) (0.0-1.0) % Sodium (135-145) mmol/L Potassium (3.6-5.0) mmol/L Chloride (101-111) mmol/L Carbon Dioxide (21.0-31.0) mmol/L Anion Gap BUN (7-18) mg/dL Creatinine (0.6-1.3) mg/dL Est Cr Clr Drug Dosing mL/min Estimated GFR (MDRD) BUN/Creatinine Ratio Glucose (74-105) mg/dL Lactic Acid (0.5-2.2) mmol/L Calcium (8.4-10.2) mg/dl Total Bilirubin (0.2-1.0) mg/dL AST (10-42) IU/L ALT (10-60) IU/L Alkaline Phosphatase (42-121) IU/L Troponin I (0.00-0.02) ng/ml B-Natriuretic Peptide (0-100) pg/ml Total Protein (6.7-8.2) g/dl Albumin (3.2-5.5) g/dl Globulin Albumin/Globulin Ratio Urine Opiates Screen Negative (NEGATIVE) Ur Oxycodone Screen Negative (NEGATIVE) Urine Methadone Screen Negative (NEGATIVE) Ur Barbiturates Screen Negative (NEGATIVE) U Tricyclic Antidepress Negative (NEGATIVE) Ur Phencyclidine Scrn Negative (NEGATIVE) Ur Amphetamine Screen Negative (NEGATIVE) U Methamphetamines Scrn Positive H (NEGATIVE) Urine MDMA Screen Negative (NEGATIVE) U Benzodiazepines Scrn Positive H (NEGATIVE) Urine Cocaine Screen Negative (NEGATIVE) U Marijuana (THC) Screen Positive H (NEGATIVE) Ethyl Alcohol mg/dL Meds: Medications Discontinued Medications Generic Name Dose Route Start Last Admin Trade Name Freq PRN Reason Stop Dose Admin Furosemide 40 mg 11/20/17 05:32 11/20/17 06:47 Lasix IVPUSH 11/20/17 05:33 40 mg NOW ONE Administration - Re-Assessments/Exams Free Text/Narrative Re-Assessment/Exam: 11/20/17 06:50 results discussed with pt and encouraged pt to avoid doing meth. Departure - Departure Time of Disposition: 07:02 Disposition: Home, Self-Care 01 Condition: Poor Clinical Impression: CHF, Congestive heart failure, Methamphetamine abuse - Discharge Information Forms: ED Department Discharge Additional Instructions: 1) avoid doing meth. 2) follow up at clinic
[2017-11-20 05:20] LABS: CHLORIDE,CL 106 mmol/L (101-111); SODIUM,NA 137 mmol/L (135-145)
[2017-11-20] MEDS ORDERED: Furosemide 40 MG/4 ML VIAL IVPUSH ONE (05:32)
[2017-11-20 06:49] VITALS: BP 109/66
== END 2017-11-20 07:02 | disposition home or self-care (01) ==
LOC: DL.ED 04:44
DX: I11.0 Hypertensive heart disease with heart failure (principal); I50.9 Heart failure, unspecified; F15.10 Other stimulant abuse, uncomplicated; Z79.899 Other long term (current) drug therapy
CPT/HCPCS: 36415; 71045; 80053; 80305; 83605; 83880; 84484; 85025; 96374; 99285; G0480; J1940

== ENCOUNTER 2017-11-21 20:24 | Emergency (ER) | payer MEDICAID ==
[2017-11-21 20:06] VITALS: BP 102/81
--- NOTE | 2017-11-21 20:26 | EDM.PDOC ---
ED HPI GENERAL MEDICAL PROBLEM - General Chief Complaint: Respiratory Problem Stated Complaint: UNKNOWN Time Seen by Provider: 11/21/17 20:25 Source of Information: Reports: Patient History Limitations: Reports: No Limitations - History of Present Illness INITIAL COMMENTS - FREE TEXT/NARRATIVE: c/o vomiting unable take his meds past 3 days. was here yesterday and d/c for SOB. pt has no c/o SOB presently. pt has h/o cardiomyopathy. Left Upper Back Pain Score (Numeric/FACES): 7 - Related Data Allergies Allergy/AdvReac Type Severity Reaction Status Date / Time No Known Allergies Allergy Verified 11/21/17 20:06 Home Meds: Home Meds ALPRAZolam [Xanax] 0.25 mg PO BID PRN 07/31/17 [History] Digoxin 0.25 mg PO DAILY 07/31/17 [History] Fluticasone/Salmeterol [Advair 250-50 Diskus] 1 puff INH Q12H 07/31/17 [History] Pantoprazole Sodium [Protonix] 40 mg PO DAILY 07/31/17 [History] Furosemide [Lasix] 40 mg PO BID 08/20/17 [History] Carvedilol 6.25 mg PO BID 11/12/17 [History] Ibuprofen 600 mg PO Q8H PRN MDD pain 11/12/17 [History] Lisinopril 2.5 mg PO DAILY 11/12/17 [History] Melatonin/Pyridoxine HCl (B6) [Melatonin 3 mg Tablet] 3 mg PO BEDTIME 11/12/17 [ History] Potassium Chloride 40 meq PO BID 11/12/17 [History] Spironolactone [Aldactone] 25 mg PO DAILY 11/12/17 [History] Albuterol [Proventil Neb Soln] 2.5 mg NEB Q6HRRT PRN neb 11/16/17 [Rx] Past Medical History - Past Health History Medical/Surgical History: Denies Medical/Surgical History HEENT History: Reports: None Cardiovascular History: Reports: Blood Clots/VTE/DVT, Cardiomyopathy, Heart Failure, Hypertension, SOB on Exertion Respiratory History: Reports: SOB Gastrointestinal History: Reports: Cirrhosis, Gastritis, GERD Genitourinary History: Reports: Other (See Below) Other Genitourinary History: liver issues r/t ETOH Musculoskeletal History: Reports: Arthritis, Other (See Below) Other Musculoskeletal History: torn left and right upper arm tendon. missed surgery 03/2017 Neurological History: Reports: None Psychiatric History: Reports: Addiction, Anxiety, Depression, Panic Attack Other Psychiatric History: ETOH treatment last approx 10 years ago Endocrine/Metabolic History: Reports: None Hematologic History: Reports: None Immunologic History: Reports: None Oncologic (Cancer) History: Reports: None Dermatologic History: Reports: None - Infectious Disease History Infectious Disease History: Reports: None - Past Surgical History Head Surgeries/Procedures: Reports: None Cardiovascular Surgical History: Reports: AICD, Percutaneous Transluminal Angioplasty Respiratory Surgical History: Reports: None GI Surgical History: Reports: None Male Surgical History: Reports: None Neurological Surgical History: Reports: None Musculoskeletal Surgical History: Reports: None Social & Family History - Family History Family Medical History: Unobtainable Cardiac: Reports: Hypertension Other Cardiac Family History: Dad and paternal grandmother have hypertension. Respiratory: Reports: Asthma Other Respiratory Family Hisory: Mom and dad have asthma. Endocrine/Metabolic: Reports: Diabetes, Type I Other Endocrine/Metabolic Family History: Dad and paternal grandmother have type I diabetes. - Caffeine Use Caffeine Use: Reports: Coffee - Living Situation & Occupation Living situation: Reports: with Family Occupation: Unemployed ED ROS GENERAL - Review of Systems Review Of Systems: ROS reveals no pertinent complaints other than HPI. ED EXAM, GENERAL - Physical Exam Exam: See Below Exam Limited By: No Limitations General Appearance: Alert, WD/WN, No Apparent Distress, Anxious Ears: Hearing Grossly Normal Throat/Mouth: Normal Voice, No Airway Compromise Head: Atraumatic Neck: Non-Tender, Full Range of Motion Respiratory/Chest: No Accessory Muscle Use, Rales, Rhonchi, Other (basilar). No : Decreased Breath Sounds Cardiovascular: Regular Rate, Rhythm GI/Abdominal: Soft, Non-Tender Extremities: Pedal Edema, Other (1+) Neurological: Alert, Oriented, Normal Cognition, Normal Gait, No Motor/Sensory Deficits Psychiatric: Normal Affect, Normal Mood Skin Exam: Warm, Dry, Normal Color Lymphatic: No Adenopathy Course - Vital Signs Last Recorded V/S: Last Vital Signs Temp 37.3 C 11/21/17 19:57 Pulse 112 H 11/21/17 19:57 Resp 25 H 11/21/17 19:57 BP 102/81 11/21/17 19:57 Pulse Ox 98 11/21/17 19:57 - Orders/Labs/Meds Orders: Active Orders 24 hr Category Date Time Status EKG 12 Lead [EKG Documentation Completion] [RC] URGENT Care 11/21/17 20:13 Active Labs: Laboratory Tests 11/21/17 11/21/17 11/21/17 Range/Units 20:22 20:30 20:30 WBC 5.6 (5.0-10.0) 10^3/uL RBC 4.22 L (4.6-6.2) 10^6/uL Hgb 11.3 L (14.0-18.0) g/dL Hct 35.9 L (40.0-54.0) % MCV 85.1 (80-100) fL MCH 26.8 L (27.0-34.0) pg MCHC 31.5 L (33.0-35.0) g/dL Plt Count 195 (150-450) 10^3/uL Neut % (Auto) 70.3 (42.2-75.2) % Lymph % (Auto) 13.1 L (20.5-50.1) % [place] % (Auto) 14.1 H (2-8) % Eos % (Auto) 2.0 (1.0-3.0) % Baso % (Auto) 0.5 (0.0-1.0) % Sodium 135 (135-145) mmol/L Potassium 3.3 L (3.6-5.0) mmol/L Chloride 102 (101-111) mmol/L Carbon Dioxide 27.0 (21.0-31.0) mmol/L Anion Gap 9.3 BUN 13 (7-18) mg/dL Creatinine 0.9 (0.6-1.3) mg/dL Est Cr Clr Drug Dosing 98.19 mL/min Estimated GFR (MDRD) > 60 BUN/Creatinine Ratio 14.44 Glucose 110 H (74-105) mg/dL Calcium 8.4 (8.4-10.2) mg/dl Total Bilirubin 2.7 H (0.2-1.0) mg/dL AST 29 (10-42) IU/L ALT 13 (10-60) IU/L Alkaline Phosphatase 108 (42-121) IU/L Troponin I 0.05 H* (0.00-0.02) ng/ml B-Natriuretic Peptide 4310 H (0-100) pg/ml Total Protein 7.5 (6.7-8.2) g/dl Albumin 3.3 (3.2-5.5) g/dl Globulin 4.2 Albumin/Globulin Ratio 0.79 Urine Opiates Screen Negative (NEGATIVE) Ur Oxycodone Screen Negative (NEGATIVE) Urine Methadone Screen Negative (NEGATIVE) Ur Barbiturates Screen Negative (NEGATIVE) U Tricyclic Antidepress Negative (NEGATIVE) Ur Phencyclidine Scrn Negative (NEGATIVE) Ur Amphetamine Screen Negative (NEGATIVE) U Methamphetamines Scrn Positive H (NEGATIVE) Urine MDMA Screen Negative (NEGATIVE) U Benzodiazepines Scrn Positive H (NEGATIVE) Urine Cocaine Screen Negative (NEGATIVE) U Marijuana (THC) Screen Positive H (NEGATIVE) Meds: Medications Discontinued Medications Generic Name Dose Route Start Last Admin Trade Name Freq PRN Reason Stop Dose Admin Furosemide 40 mg 11/21/17 21:04 11/21/17 21:09 Lasix IVPUSH 11/21/17 21:05 40 mg NOW ONE Administration Lorazepam 2 mg 11/21/17 20:40 11/21/17 20:45 Ativan IVPUSH 11/21/17 20:41 2 mg ONETIME ONE Administration - Re-Assessments/Exams Free Text/Narrative Re-Assessment/Exam: 11/21/17 21:05 results discussed with pt who states feeling better after the ativan. Departure - Departure Time of Disposition: 21:25 Disposition: Home, Self-Care 01 Condition: Fair Clinical Impression: CHF, Congestive heart failure, Noncompliance with medication regimen, Polysubstance abuse, Methamphetamine abuse - Discharge Information Forms: ED Department Discharge Additional Instructions: 1) rest 2) avoid meth usage 3) follow up at clinic or recheck as needed - My Orders Last 24 Hours: My Active Orders 11/21/17 20:13 EKG 12 Lead [EKG Documentation Completion] [RC] URGENT - Assessment/Plan Last 24 Hours: My Active Orders 11/21/17 20:13 EKG 12 Lead [EKG Documentation Completion] [RC] URGENT
[2017-11-21] MEDS ORDERED: LORazepam 2 MG/ML Syringe IVPUSH ONE (20:40)
[2017-11-21 20:57] LABS: ANION GAP 9.3; CHLORIDE,CL 102 mmol/L (101-111); SODIUM,NA 135 mmol/L (135-145)
[2017-11-21] MEDS ORDERED: Furosemide 40 MG/4 ML VIAL IVPUSH ONE (21:04)
== END 2017-11-21 21:27 | disposition home or self-care (01) ==
LOC: DL.ED 20:24
DX: I11.0 Hypertensive heart disease with heart failure (principal); I50.9 Heart failure, unspecified; F19.10 Other psychoactive substance abuse, uncomplicated; F15.10 Other stimulant abuse, uncomplicated; Z91.14 Patient's other noncompliance with medication regimen; K21.9 Gastro-esophageal reflux disease without esophagitis; Z79.899 Other long term (current) drug therapy
CPT/HCPCS: 36415; 80053; 80305; 83880; 84484; 85025; 93005; 96374; 96375; 99285; J1940; J2060

== ENCOUNTER 2017-11-22 18:05 | Emergency (ER) | payer MEDICAID ==
[2017-11-22] MEDS ORDERED: LORazepam 2 MG/ML Syringe IM ONE (18:25)
--- NOTE | 2017-11-22 18:57 | EDM.PDOC ---
ED HPI GENERAL MEDICAL PROBLEM - General Chief Complaint: Respiratory Problem Stated Complaint: by ambulance Time Seen by Provider: 11/22/17 18:52 Source of Information: Reports: Patient History Limitations: Reports: No Limitations - History of Present Illness INITIAL COMMENTS - FREE TEXT/NARRATIVE: states he was fine after being seen here last night and got some Rx then today started vomiting after taking his meds and now feels like last night. explained to pt he needs to get the ativan from his clinic or PMD and ER cannot give script for this due to regulations. pt states it's hard for him to control himself over drugs & alcohol. explained to pt [facility] does have a program where pts in his situation are sent to and out of state facility for such management but he needs to do that at [facility] tomorrow. pt states he will just have to keep coming back here then. - Related Data Allergies Allergy/AdvReac Type Severity Reaction Status Date / Time No Known Allergies Allergy Verified 11/22/17 18:38 Home Meds: Home Meds ALPRAZolam [Xanax] 0.25 mg PO BID PRN 07/31/17 [History] Digoxin 0.25 mg PO DAILY 07/31/17 [History] Fluticasone/Salmeterol [Advair 250-50 Diskus] 1 puff INH Q12H 07/31/17 [History] Pantoprazole Sodium [Protonix] 40 mg PO DAILY 07/31/17 [History] Furosemide [Lasix] 40 mg PO BID 08/20/17 [History] Carvedilol 6.25 mg PO BID 11/12/17 [History] Ibuprofen 600 mg PO Q8H PRN MDD pain 11/12/17 [History] Lisinopril 2.5 mg PO DAILY 11/12/17 [History] Melatonin/Pyridoxine HCl (B6) [Melatonin 3 mg Tablet] 3 mg PO BEDTIME 11/12/17 [ History] Potassium Chloride 40 meq PO BID 11/12/17 [History] Spironolactone [Aldactone] 25 mg PO DAILY 11/12/17 [History] Albuterol [Proventil Neb Soln] 2.5 mg NEB Q6HRRT PRN neb 11/16/17 [Rx] Past Medical History - Past Health History Medical/Surgical History: Denies Medical/Surgical History HEENT History: Reports: None Cardiovascular History: Reports: Blood Clots/VTE/DVT, Cardiomyopathy, Heart Failure, Hypertension, SOB on Exertion Respiratory History: Reports: SOB Gastrointestinal History: Reports: Cirrhosis, Gastritis, GERD Genitourinary History: Reports: Other (See Below) Other Genitourinary History: liver issues r/t ETOH Musculoskeletal History: Reports: Arthritis, Other (See Below) Other Musculoskeletal History: torn left and right upper arm tendon. missed surgery 03/2017 Neurological History: Reports: None Psychiatric History: Reports: Addiction, Anxiety, Depression, Panic Attack Other Psychiatric History: ETOH treatment last approx 10 years ago Endocrine/Metabolic History: Reports: None Hematologic History: Reports: None Immunologic History: Reports: None Oncologic (Cancer) History: Reports: None Dermatologic History: Reports: None - Infectious Disease History Infectious Disease History: Reports: None - Past Surgical History Head Surgeries/Procedures: Reports: None Cardiovascular Surgical History: Reports: AICD, Percutaneous Transluminal Angioplasty Respiratory Surgical History: Reports: None GI Surgical History: Reports: None Male Surgical History: Reports: None Neurological Surgical History: Reports: None Musculoskeletal Surgical History: Reports: None Social & Family History - Family History Family Medical History: Unobtainable Cardiac: Reports: Hypertension Other Cardiac Family History: Dad and paternal grandmother have hypertension. Respiratory: Reports: Asthma Other Respiratory Family Hisory: Mom and dad have asthma. Endocrine/Metabolic: Reports: Diabetes, Type I Other Endocrine/Metabolic Family History: Dad and paternal grandmother have type I diabetes. - Tobacco Use Smoking Status *Q: Never Smoker - Caffeine Use Caffeine Use: Reports: Coffee - Alcohol Use Days Per Week of Alcohol Use: 7 Number of Drinks Per Day: 5 Total Drinks Per Week: 35 - Recreational Drug Use Recreational Drug Use: Yes Drug Use in Last 12 Months: Yes Recreational Drug Type: Reports: Methamphetamine, Oxycodone - Living Situation & Occupation Living situation: Reports: with Family Occupation: Unemployed ED ROS GENERAL - Review of Systems Review Of Systems: ROS reveals no pertinent complaints other than HPI. ED EXAM, GENERAL - Physical Exam Exam: See Below Exam Limited By: No Limitations General Appearance: Alert, WD/WN, No Apparent Distress Eye Exam: Bilateral Eye: PERRL (pupils ER @ 4mm) Ears: Hearing Grossly Normal Throat/Mouth: Normal Voice, No Airway Compromise Head: Atraumatic Neck: Non-Tender, Full Range of Motion Respiratory/Chest: No Respiratory Distress, No Accessory Muscle Use, Rales, Rhonchi, Other (good air motion) Cardiovascular: Regular Rate, Rhythm GI/Abdominal: Soft, Non-Tender Neurological: Alert, Oriented, Normal Cognition, Normal Gait, No Motor/Sensory Deficits Psychiatric: Normal Affect, Normal Mood Skin Exam: Warm, Dry, Normal Color Lymphatic: No Adenopathy Course - Vital Signs Last Recorded V/S: Last Vital Signs Temp 37.6 C 11/22/17 19:12 Pulse 110 H 11/22/17 19:12 Resp 30 H 11/22/17 19:12 BP 96/71 11/22/17 19:12 Pulse Ox 100 11/22/17 19:12 - Orders/Labs/Meds Meds: Medications Discontinued Medications Generic Name Dose Route Start Last Admin Trade Name Walter PRN Reason Stop Dose Admin Furosemide 80 mg 11/22/17 18:58 11/22/17 19:08 Lasix PO 11/22/17 18:59 80 mg ONETIME ONE Administration Lorazepam 2 mg 11/22/17 18:25 11/22/17 18:39 Ativan IM 11/22/17 18:26 2 mg ONETIME ONE Administration Ondansetron HCl 4 mg 11/22/17 18:58 11/22/17 19:08 Zofran Odt PO 11/22/17 18:59 4 mg ONETIME ONE Administration Departure - Departure Time of Disposition: 19:15 Disposition: Home, Self-Care 01 Condition: Fair Clinical Impression: Noncompliance with medication regimen Chronic CHF Qualifiers: Heart failure type: unspecified Qualified Code(s): I50.9 - Heart failure, unspecified - Discharge Information Forms: ED Department Discharge Additional Instructions: 1) continue present medication regimen 2) see clinic tomorrow for follow up care
[2017-11-22] MEDS ORDERED: Furosemide 80 MG Tab PO ONE (18:58)
[2017-11-22] MEDS ORDERED: Ondansetron 4 MG Tab.DIS PO ONE (18:58)
[2017-11-22 19:13] VITALS: BP 96/71
== END 2017-11-22 19:16 | disposition home or self-care (01) ==
LOC: DL.ED 18:05
DX: I11.0 Hypertensive heart disease with heart failure (principal); I50.9 Heart failure, unspecified; Z91.14 Patient's other noncompliance with medication regimen; Z79.899 Other long term (current) drug therapy
CPT/HCPCS: 96372; 99285; A9270; J2060

== ENCOUNTER 2017-11-23 09:45 | Emergency (ER) | payer MEDICAID ==
[2017-11-23 09:56] VITALS: BP 92/75
[2017-11-23] MEDS ORDERED: Ondansetron 4 MG/2 ML SDV IV ONE (10:03)
--- NOTE | 2017-11-23 10:05 | EDM.PDOC ---
ED HPI GENERAL MEDICAL PROBLEM - General Chief Complaint: Drug or Alcohol Abuse Stated Complaint: IN BY [facility] Time Seen by Provider: 11/23/17 09:55 Source of Information: Reports: Patient History Limitations: Reports: No Limitations - History of Present Illness INITIAL COMMENTS - FREE TEXT/NARRATIVE: This 52 yo male patient was brought to the ED by [facility] due to increased shortness of breath, difficulties breathing, nausea/vomiting (4 days) and for ETOH/Drug treatment. The patient has been seen 4 times in 4 days for similar symptoms. The patient admits to using Meth and Marijuana in the past 2-3 days. The patient reports that he has not been able to sleep in at least 4 days. The patient reports that the only time he was able to hold anything in his stomach was after getting Zofran in the ED. The patient reports that he has not been able to keep any of his medications down in the past couple of days. Duration: Day(s):, Constant, Getting Worse Location: Reports: Generalized Quality: Reports: Pressure Severity: Moderate Improves with: Reports: Rest Worsens with: Reports: Movement (patient reports that he is unable to walk to the mailbox without being short of breath) Context: Reports: Other Associated Symptoms: Reports: Nausea/Vomiting, Shortness of Breath, Weakness - Related Data Allergies Allergy/AdvReac Type Severity Reaction Status Date / Time No Known Allergies Allergy Verified 11/23/17 09:45 Home Meds: Home Meds ALPRAZolam [Xanax] 0.25 mg PO BID PRN 07/31/17 [History] Digoxin 0.25 mg PO DAILY 07/31/17 [History] Fluticasone/Salmeterol [Advair 250-50 Diskus] 1 puff INH Q12H 07/31/17 [History] Pantoprazole Sodium [Protonix] 40 mg PO DAILY 07/31/17 [History] Furosemide [Lasix] 40 mg PO BID 08/20/17 [History] Carvedilol 6.25 mg PO BID 11/12/17 [History] Ibuprofen 600 mg PO Q8H PRN MDD pain 11/12/17 [History] Lisinopril 2.5 mg PO DAILY 11/12/17 [History] Melatonin/Pyridoxine HCl (B6) [Melatonin 3 mg Tablet] 3 mg PO BEDTIME 11/12/17 [ History] Potassium Chloride 40 meq PO BID 11/12/17 [History] Spironolactone [Aldactone] 25 mg PO DAILY 11/12/17 [History] Albuterol [Proventil Neb Soln] 2.5 mg NEB Q6HRRT PRN neb 11/16/17 [Rx] Past Medical History - Past Health History Medical/Surgical History: Denies Medical/Surgical History HEENT History: Reports: None Cardiovascular History: Reports: Blood Clots/VTE/DVT, Cardiomyopathy, Heart Failure, Hypertension, SOB on Exertion Respiratory History: Reports: SOB Gastrointestinal History: Reports: Cirrhosis, Gastritis, GERD Genitourinary History: Reports: Other (See Below) Other Genitourinary History: liver issues r/t ETOH Musculoskeletal History: Reports: Arthritis, Other (See Below) Other Musculoskeletal History: torn left and right upper arm tendon. missed surgery 03/2017 Neurological History: Reports: None Psychiatric History: Reports: Addiction, Anxiety, Depression, Panic Attack Other Psychiatric History: ETOH treatment last approx 10 years ago Endocrine/Metabolic History: Reports: None Hematologic History: Reports: None Immunologic History: Reports: None Oncologic (Cancer) History: Reports: None Dermatologic History: Reports: None - Infectious Disease History Infectious Disease History: Reports: None - Past Surgical History Head Surgeries/Procedures: Reports: None Cardiovascular Surgical History: Reports: AICD, Percutaneous Transluminal Angioplasty Respiratory Surgical History: Reports: None GI Surgical History: Reports: None Male Surgical History: Reports: None Neurological Surgical History: Reports: None Musculoskeletal Surgical History: Reports: None Social & Family History - Family History Family Medical History: Unobtainable Cardiac: Reports: Hypertension Other Cardiac Family History: Dad and paternal grandmother have hypertension. Respiratory: Reports: Asthma Other Respiratory Family Hisory: Mom and dad have asthma. Endocrine/Metabolic: Reports: Diabetes, Type I Other Endocrine/Metabolic Family History: Dad and paternal grandmother have type I diabetes. - Caffeine Use Caffeine Use: Reports: Coffee - Living Situation & Occupation Living situation: Reports: with Family Occupation: Unemployed ED ROS GENERAL - Review of Systems Review Of Systems: ROS reveals no pertinent complaints other than HPI. ED EXAM, GENERAL - Physical Exam Exam: See Below Exam Limited By: No Limitations General Appearance: Alert, WD/WN, Moderate Distress, Thin Eye Exam: Bilateral Eye: EOMI, Normal Inspection, PERRL Ears: Normal External Exam, Normal Canal, Hearing Grossly Normal, Normal TMs Nose: Normal Inspection Throat/Mouth: Normal Inspection, Normal Lips, Normal Teeth, Normal Gums, Normal Oropharynx, Normal Voice, No Airway Compromise Head: Atraumatic, Normocephalic Neck: Normal Inspection, Supple, Non-Tender, Full Range of Motion Respiratory/Chest: Decreased Breath Sounds, Rhonchi Cardiovascular: Normal Peripheral Pulses, Regular Rate, Rhythm, No Edema GI/Abdominal: Normal Bowel Sounds, Soft, Non-Tender, No Organomegaly, No Distention, No Abnormal Bruit, No Mass (Male) Exam: Deferred Rectal (Males) Exam: Deferred Back Exam: Normal Inspection, Full Range of Motion, NT Extremities: Normal Inspection, Normal Range of Motion, Non-Tender, Normal Capillary Refill, No Pedal Edema Neurological: Alert, Oriented, CN II-XII Intact, Normal Cognition Psychiatric: Depressed Mood, Flat Affect Skin Exam: Warm, Dry, Intact, Normal Color, No Rash Lymphatic: No Adenopathy Course - Vital Signs Last Recorded V/S: Last Vital Signs Temp 36.8 C 11/23/17 09:54 Pulse 87 11/23/17 09:54 Resp 15 11/23/17 09:54 BP 92/75 11/23/17 09:54 Pulse Ox 100 11/23/17 09:54 - Orders/Labs/Meds Orders: Active Orders 24 hr Category Date Time Status EKG Documentation Completion [RC] URGENT Care 11/23/17 09:53 Active Chest 2V [CR] Urgent Exams 11/23/17 10:08 Ordered LORazepam [Ativan] Med 11/23/17 10:51 Once 0.5 mg IVPUSH ONETIME ONE Labs: Laboratory Tests 11/23/17 11/23/17 11/23/17 Range/Units 09:50 09:50 10:00 WBC (5.0-10.0) 10^3/uL RBC (4.6-6.2) 10^6/uL Hgb (14.0-18.0) g/dL Hct (40.0-54.0) % MCV (80-100) fL MCH (27.0-34.0) pg MCHC (33.0-35.0) g/dL Plt Count (150-450) 10^3/uL Neut % (Auto) (42.2-75.2) % Lymph % (Auto) (20.5-50.1) % [place] % (Auto) (2-8) % Eos % (Auto) (1.0-3.0) % Baso % (Auto) (0.0-1.0) % Sodium (135-145) mmol/L Potassium (3.6-5.0) mmol/L Chloride (101-111) mmol/L Carbon Dioxide (21.0-31.0) mmol/L Anion Gap BUN (7-18) mg/dL Creatinine (0.6-1.3) mg/dL Est Cr Clr Drug Dosing mL/min Estimated GFR (MDRD) BUN/Creatinine Ratio Glucose (74-105) mg/dL Calcium (8.4-10.2) mg/dl Magnesium 1.6 L (1.8-2.5) mg/dL Total Bilirubin (0.2-1.0) mg/dL AST (10-42) IU/L ALT (10-60) IU/L Alkaline Phosphatase (42-121) IU/L Troponin I (0.00-0.02) ng/ml B-Natriuretic Peptide > 5000 H (0-100) pg/ml Total Protein (6.7-8.2) g/dl Albumin (3.2-5.5) g/dl Globulin Albumin/Globulin Ratio Urine Color [place] (YELLOW) Urine Appearance Slightly cloudy (CLEAR) Urine pH 6.0 (5.0-9.0) Ur Specific [place] >= 1.030 (1.005-1.030) Urine Protein >=300 H (NEGATIVE) Urine Glucose (UA) 100 H (NEGATIVE) Urine Ketones Negative (NEGATIVE) Urine Occult Blood Small H (NEGATIVE) Urine Nitrite Negative (NEGATIVE) Urine Bilirubin Moderate H (NEGATIVE) Urine Urobilinogen >=8.0 H (0.2-1.0) mg/dL Ur Leukocyte Esterase Negative (NEGATIVE) Urine RBC 5-10 H /HPF Urine WBC 0-5 (0-5/HPF) /HPF Ur Epithelial Cells Few /HPF Amorphous Sediment Moderate (0/HPF) /HPF Urine Bacteria Few (0-FEW/HPF) /HPF Hyaline Casts Moderate H /LPF Granular Casts Few /LPF Urine Mucus Moderate H /LPF Salicylates < 4.0 Urine Opiates Screen Negative (NEGATIVE) Ur Oxycodone Screen Negative (NEGATIVE) Urine Methadone Screen Negative (NEGATIVE) Acetaminophen < 10.0 Ur Barbiturates Screen Negative (NEGATIVE) U Tricyclic Antidepress Negative (NEGATIVE) Ur Phencyclidine Scrn Negative (NEGATIVE) Ur Amphetamine Screen Negative (NEGATIVE) U Methamphetamines Scrn Positive H (NEGATIVE) Urine MDMA Screen Negative (NEGATIVE) U Benzodiazepines Scrn Positive H (NEGATIVE) Urine Cocaine Screen Negative (NEGATIVE) U Marijuana (THC) Screen Positive H (NEGATIVE) Ethyl Alcohol 0 mg/dL 11/23/17 11/23/17 Range/Units 10:00 10:00 WBC 4.6 L (5.0-10.0) 10^3/uL RBC 4.36 L (4.6-6.2) 10^6/uL Hgb 11.7 L (14.0-18.0) g/dL Hct 37.4 L (40.0-54.0) % MCV 85.8 (80-100) fL MCH 26.8 L (27.0-34.0) pg MCHC 31.3 L (33.0-35.0) g/dL Plt Count 179 (150-450) 10^3/uL Neut % (Auto) 56.7 (42.2-75.2) % Lymph % (Auto) 24.6 (20.5-50.1) % [place] % (Auto) 15.4 H (2-8) % Eos % (Auto) 1.3 (1.0-3.0) % Baso % (Auto) 2.0 H (0.0-1.0) % Sodium 137 (135-145) mmol/L Potassium 3.5 L (3.6-5.0) mmol/L Chloride 101 (101-111) mmol/L Carbon Dioxide 26.0 (21.0-31.0) mmol/L Anion Gap 13.5 BUN 15 (7-18) mg/dL Creatinine 1.2 (0.6-1.3) mg/dL Est Cr Clr Drug Dosing 73.65 mL/min Estimated GFR (MDRD) > 60 BUN/Creatinine Ratio 12.50 Glucose 99 (74-105) mg/dL Calcium 8.6 (8.4-10.2) mg/dl Magnesium (1.8-2.5) mg/dL Total Bilirubin 3.3 H (0.2-1.0) mg/dL AST 39 (10-42) IU/L ALT 15 (10-60) IU/L Alkaline Phosphatase 90 (42-121) IU/L Troponin I 0.06 H* (0.00-0.02) ng/ml B-Natriuretic Peptide (0-100) pg/ml Total Protein 7.7 (6.7-8.2) g/dl Albumin 3.4 (3.2-5.5) g/dl Globulin 4.3 Albumin/Globulin Ratio 0.79 Urine Color (YELLOW) Urine Appearance (CLEAR) Urine pH (5.0-9.0) Ur Specific [place] (1.005-1.030) Urine Protein (NEGATIVE) Urine Glucose (UA) (NEGATIVE) Urine Ketones (NEGATIVE) Urine Occult Blood (NEGATIVE) Urine Nitrite (NEGATIVE) Urine Bilirubin (NEGATIVE) Urine Urobilinogen (0.2-1.0) mg/dL Ur Leukocyte Esterase (NEGATIVE) Urine RBC /HPF Urine WBC (0-5/HPF) /HPF Ur Epithelial Cells /HPF Amorphous Sediment (0/HPF) /HPF Urine Bacteria (0-FEW/HPF) /HPF Hyaline Casts /LPF Granular Casts /LPF Urine Mucus /LPF Salicylates Urine Opiates Screen (NEGATIVE) Ur Oxycodone Screen (NEGATIVE) Urine Methadone Screen (NEGATIVE) Acetaminophen Ur Barbiturates Screen (NEGATIVE) U Tricyclic Antidepress (NEGATIVE) Ur Phencyclidine Scrn (NEGATIVE) Ur Amphetamine Screen (NEGATIVE) U Methamphetamines Scrn (NEGATIVE) Urine MDMA Screen (NEGATIVE) U Benzodiazepines Scrn (NEGATIVE) Urine Cocaine Screen (NEGATIVE) U Marijuana (THC) Screen (NEGATIVE) Ethyl Alcohol mg/dL Meds: Medications Discontinued Medications Generic Name Dose Route Start Last Admin Trade Name Freq PRN Reason Stop Dose Admin Furosemide 40 mg 11/23/17 10:30 11/23/17 10:47 Lasix IVPUSH 11/23/17 10:31 40 mg NOW ONE Administration Ondansetron HCl 4 mg 11/23/17 10:03 11/23/17 10:07 Zofran IV 11/23/17 10:04 4 mg ONETIME ONE Administration Departure - Departure Time of Disposition: 10:51 Disposition: DC/Tfer to Acute Hospital 02 Condition: Poor Clinical Impression: Acute exacerbation of CHF (congestive heart failure) Qualifiers: Heart failure type: unspecified Qualified Code(s): I50.9 - Heart failure, unspecified Nausea & vomiting Qualifiers: Vomiting type: unspecified Vomiting Intractability: intractable Qualified Code( s): R11.2 - Nausea with vomiting, unspecified - Discharge Information *PRESCRIPTION DRUG MONITORING PROGRAM REVIEWED*: Not Applicable *COPY OF PRESCRIPTION DRUG MONITORING REPORT IN PATIENT NIMA: Not Applicable Forms: Interfacility Transfer EMTALA Care Plan Goals: Discussed the examination, history, lab and EKG results with Dr. Espinosa. Dr. Espinosa accepted the patient for continued evaluation and further management as an inpatient at [facility] in [place]. The patient will be transported by [facility]. - My Orders Last 24 Hours: My Active Orders 11/23/17 09:53 EKG Documentation Completion [RC] URGENT 11/23/17 10:08 Chest 2V [CR] Urgent 11/23/17 10:51 LORazepam [Ativan] 0.5 mg IVPUSH ONETIME ONE - Assessment/Plan Last 24 Hours: My Active Orders 11/23/17 09:53 EKG Documentation Completion [RC] URGENT 11/23/17 10:08 Chest 2V [CR] Urgent 11/23/17 10:51 LORazepam [Ativan] 0.5 mg IVPUSH ONETIME ONE
[2017-11-23 10:26] LABS: ACETAMINOPHEN < 10.0
[2017-11-23 10:27] LABS: ANION GAP 13.5; CHLORIDE,CL 101 mmol/L (101-111); SODIUM,NA 137 mmol/L (135-145)
[2017-11-23] MEDS ORDERED: Furosemide 40 MG/4 ML VIAL IVPUSH ONE (10:30)
[2017-11-23] MEDS ORDERED: LORazepam 2 MG/ML Syringe IVPUSH ONE (10:51)
--- NOTE | 2017-11-23 11:15 | CR ---
Clinical history: 52-year-old male shortness of breath. Interpretation: Abnormal. Mild increased pulmonary venous congestion when compared 20 November 2017 (comparable appearance to the abnormal 12 November 2017 films) this patient with chronic cardiomegaly and pacemaker. No lung mass, hilar lymphadenopathy or focal lobar pneumonia. No atelectasis/collapse. No pneumothora x.
--- NOTE | 2017-11-24 13:52 | EKG ---
11/23/2017 - MANNIE MEREDITH - TIME: 10:14 a.m. FINDINGS: As per my reading, atrial sensed ventricular paced rhythm at 109. [facility] /[id number]
--- NOTE | 2017-11-24 14:04 | EKG ---
11/23/2017 - MANNIE MEREDITH - TIME: 9:45 a.m. FINDINGS: Atrial sensed ventricular paced rhythm at 109. [facility] /[id number]
== END 2017-11-23 11:26 ==
LOC: DL.ED 09:45
DX: I11.0 Hypertensive heart disease with heart failure (principal); I50.9 Heart failure, unspecified; R11.2 Nausea with vomiting, unspecified
CPT/HCPCS: 36415; 71046; 80053; 80305; 81001; 83735; 83880; 84484; 85025; 93005; 96374; 96375; 99285; G0480; J1940; J2060; J2405

== ENCOUNTER 2017-11-28 03:54 | Observation (INO) | payer MEDICAID ==
--- NOTE | 2017-11-28 04:13 | EDM.PDOC ---
<Fredi Galnido - Last Filed: 11/28/17 04:10> ED HPI GENERAL MEDICAL PROBLEM - General Chief Complaint: Respiratory Problem Stated Complaint: AMBULANCE-RESPIRATORY ISSUES Time Seen by Provider: 11/28/17 04:08 Source of Information: Reports: Patient History Limitations: Reports: No Limitations - History of Present Illness INITIAL COMMENTS - FREE TEXT/NARRATIVE: just went AMA from GF got home and started having worsening SOB. - Related Data Allergies Allergy/AdvReac Type Severity Reaction Status Date / Time No Known Allergies Allergy Verified 11/28/17 04:34 Home Meds: Home Meds ALPRAZolam [Xanax] 0.25 mg PO BID PRN 07/31/17 [History] Digoxin 0.25 mg PO DAILY 07/31/17 [History] Fluticasone/Salmeterol [Advair 250-50 Diskus] 1 puff INH Q12H 07/31/17 [History] Pantoprazole Sodium [Protonix] 40 mg PO DAILY 07/31/17 [History] Furosemide [Lasix] 40 mg PO BID 08/20/17 [History] Carvedilol 6.25 mg PO BID 11/12/17 [History] Ibuprofen 600 mg PO Q8H PRN MDD pain 11/12/17 [History] Lisinopril 2.5 mg PO DAILY 11/12/17 [History] Melatonin/Pyridoxine HCl (B6) [Melatonin 3 mg Tablet] 3 mg PO BEDTIME 11/12/17 [ History] Potassium Chloride 40 meq PO BID 11/12/17 [History] Spironolactone [Aldactone] 25 mg PO DAILY 11/12/17 [History] Albuterol [Proventil Neb Soln] 2.5 mg NEB Q6HRRT PRN neb 11/16/17 [Rx] Calcium Carbonate 500 mg PO TID PRN 11/28/17 [History] Past Medical History - Past Health History Medical/Surgical History: Denies Medical/Surgical History HEENT History: Reports: None Cardiovascular History: Reports: Blood Clots/VTE/DVT, Cardiomyopathy, Heart Failure, Hypertension, SOB on Exertion Respiratory History: Reports: SOB Gastrointestinal History: Reports: Cirrhosis, Gastritis, GERD Genitourinary History: Reports: Other (See Below) Other Genitourinary History: liver issues r/t ETOH Musculoskeletal History: Reports: Arthritis, Other (See Below) Other Musculoskeletal History: torn left and right upper arm tendon. missed surgery 03/2017 Neurological History: Reports: None Psychiatric History: Reports: Addiction, Anxiety, Depression, Panic Attack Other Psychiatric History: ETOH treatment last approx 10 years ago Endocrine/Metabolic History: Reports: None Hematologic History: Reports: None Immunologic History: Reports: None Oncologic (Cancer) History: Reports: None Dermatologic History: Reports: None - Infectious Disease History Infectious Disease History: Reports: None - Past Surgical History Head Surgeries/Procedures: Reports: None Cardiovascular Surgical History: Reports: AICD, Percutaneous Transluminal Angioplasty Respiratory Surgical History: Reports: None GI Surgical History: Reports: None Male Surgical History: Reports: None Neurological Surgical History: Reports: None Musculoskeletal Surgical History: Reports: None Social & Family History - Family History Family Medical History: Unobtainable Cardiac: Reports: Hypertension Other Cardiac Family History: Dad and paternal grandmother have hypertension. Respiratory: Reports: Asthma Other Respiratory Family Hisory: Mom and dad have asthma. Endocrine/Metabolic: Reports: Diabetes, Type I Other Endocrine/Metabolic Family History: Dad and paternal grandmother have type I diabetes. - Caffeine Use Caffeine Use: Reports: Coffee - Living Situation & Occupation Living situation: Reports: with Family Occupation: Unemployed ED ROS GENERAL - Review of Systems Review Of Systems: ROS reveals no pertinent complaints other than HPI. ED EXAM, GENERAL - Physical Exam Exam: See Below Exam Limited By: No Limitations General Appearance: Alert, WD/WN, Mild Distress, Other (sob) Ears: Hearing Grossly Normal Throat/Mouth: Normal Voice, No Airway Compromise Head: Atraumatic Neck: Non-Tender, Full Range of Motion Respiratory/Chest: Decreased Breath Sounds, Rales, Rhonchi, Accessory Muscle Use. No: Retractions Cardiovascular: Regular Rate, Rhythm GI/Abdominal: Soft, Non-Tender Neurological: Alert, Oriented, Normal Cognition Psychiatric: Flat Affect Skin Exam: Warm, Dry, Normal Color Lymphatic: No Adenopathy Course - Vital Signs Last Recorded V/S: Last Vital Signs Temp 99.6 F 11/28/17 10:08 Pulse 106 H 11/28/17 10:08 Resp 36 H 11/28/17 10:08 BP 106/75 11/28/17 10:08 Pulse Ox 95 11/28/17 10:08 - Orders/Labs/Meds Orders: Active Orders 24 hr Category Date Time Status EKG Documentation Completion [RC] STAT Care 11/28/17 04:09 Active RT Aerosol Therapy [RC] ASDIRECTED Care 11/28/17 06:22 Active Abdomen Pelvis wo Cont [CT] Urgent Exams 11/28/17 06:03 Stop Req Chest 1V Frontal [CR] Urgent Exams 11/28/17 04:09 Taken Medication Orders Acetaminophen (Tylenol) 650 mg PO Q4H PRN PRN Reason: Pain (Mild 1-3)/fever Albuterol (Proventil Neb Soln) 2.5 mg NEB Q6HRRT PRN PRN Reason: Shortness of Breath Alprazolam (Xanax) 0.25 mg PO BID PRN PRN Reason: Anxiety Amoxicillin/Clavulanate Potassium (Augmentin 500 Mg\125 Mg) 1 tab PO Q8HR ANGELIQUE Carvedilol (Coreg) 6.25 mg PO BID ANGELIQUE Digoxin (Lanoxin) 250 mcg PO DAILY ANGELIQUE Docusate Sodium (Colace) 100 mg PO BID PRN PRN Reason: Constipation Furosemide (Lasix) 40 mg PO BIDDIURETIC ANGELIQUE Heparin Sodium (Porcine) (Heparin Sodium) 5,000 units SUBCUT Q8HR ANGELIQUE Ibuprofen (Motrin) 600 mg PO Q8H PRN PRN Reason: Pain Lisinopril (Prinivil) 2.5 mg PO DAILY [facility] Mometasone Furoate/Formoterol Fumar (Dulera 200-5 Mcg) 2 puff IH BIDRT [facility] Non-Formulary Medication (Melatonin/Pyridoxine Hcl (B6) [Melatonin 3 Mg Tablet] ) 3 mg PO BEDTIME PRN PRN Reason: for sleep Pantoprazole Sodium (Protonix) 40 mg PO DAILY [facility] Potassium Chloride (Klor-Con 10) 40 meq PO BID [facility] Sodium Chloride (Saline Flush) 10 ml FLUSH ASDIRECTED PRN PRN Reason: Keep Vein Open Spironolactone (Aldactone) 25 mg PO DAILY ANGELIQUE Zolpidem Tartrate (Ambien) 5 mg PO BEDTIME PRN PRN Reason: Sleep Labs: Laboratory Tests 11/28/17 11/28/17 11/28/17 Range/Units 04:20 04:20 05:23 WBC 7.0 (5.0-10.0) 10^3/uL RBC 4.01 L (4.6-6.2) 10^6/uL Hgb 10.7 L (14.0-18.0) g/dL Hct 34.0 L (40.0-54.0) % MCV 84.8 (80-100) fL MCH 26.7 L (27.0-34.0) pg MCHC 31.5 L (33.0-35.0) g/dL Plt Count 166 (150-450) 10^3/uL Neut % (Auto) 59.7 (42.2-75.2) % Lymph % (Auto) 23.3 (20.5-50.1) % [place] % (Auto) 11.6 H (2-8) % Eos % (Auto) 4.1 H (1.0-3.0) % Baso % (Auto) 1.3 H (0.0-1.0) % Sodium 137 (135-145) mmol/L Potassium 3.9 (3.6-5.0) mmol/L Chloride 102 (101-111) mmol/L Carbon Dioxide 24.0 (21.0-31.0) mmol/L Anion Gap 14.9 BUN 31 H (7-18) mg/dL Creatinine 1.0 (0.6-1.3) mg/dL Est Cr Clr Drug Dosing 88.38 mL/min Estimated GFR (MDRD) > 60 BUN/Creatinine Ratio 31.00 Glucose 97 (74-105) mg/dL Calcium 9.5 (8.4-10.2) mg/dl Total Bilirubin 2.4 H (0.2-1.0) mg/dL AST 45 H (10-42) IU/L ALT 13 (10-60) IU/L Alkaline Phosphatase 112 (42-121) IU/L Troponin I 0.05 H* (0.00-0.02) ng/ml B-Natriuretic Peptide 3920 H (0-100) pg/ml Total Protein 7.5 (6.7-8.2) g/dl Albumin 3.2 (3.2-5.5) g/dl Globulin 4.3 Albumin/Globulin Ratio 0.74 Urine Color Suad (YELLOW) Urine Appearance Slightly cloudy (CLEAR) Urine pH 5.5 (5.0-9.0) Ur Specific [place] >= 1.030 (1.005-1.030) Urine Protein 100 H (NEGATIVE) Urine Glucose (UA) Negative (NEGATIVE) Urine Ketones Trace H (NEGATIVE) Urine Occult Blood Negative (NEGATIVE) Urine Nitrite Negative (NEGATIVE) Urine Bilirubin Negative (NEGATIVE) Urine Urobilinogen 1.0 (0.2-1.0) mg/dL Ur Leukocyte Esterase Negative (NEGATIVE) Urine RBC Not seen /HPF Urine WBC 0-5 (0-5/HPF) /HPF Ur Epithelial Cells Few /HPF Urine Bacteria Moderate H (0-FEW/HPF) /HPF Hyaline Casts Few H /LPF Urine Mucus Moderate H /LPF Urine Opiates Screen (NEGATIVE) Ur Oxycodone Screen (NEGATIVE) Urine Methadone Screen (NEGATIVE) Ur Barbiturates Screen (NEGATIVE) U Tricyclic Antidepress (NEGATIVE) Ur Phencyclidine Scrn (NEGATIVE) Ur Amphetamine Screen (NEGATIVE) U Methamphetamines Scrn (NEGATIVE) Urine MDMA Screen (NEGATIVE) U Benzodiazepines Scrn (NEGATIVE) Urine Cocaine Screen (NEGATIVE) U Marijuana (THC) Screen (NEGATIVE) Ethyl Alcohol mg/dL 11/28/17 11/28/17 11/28/17 Range/Units 05:24 06:36 06:36 WBC 6.3 (5.0-10.0) 10^3/uL RBC 4.19 L (4.6-6.2) 10^6/uL Hgb 11.2 L (14.0-18.0) g/dL Hct 35.9 L (40.0-54.0) % MCV 85.7 (80-100) fL MCH 26.7 L (27.0-34.0) pg MCHC 31.2 L (33.0-35.0) g/dL Plt Count 162 (150-450) 10^3/uL Neut % (Auto) 60.8 (42.2-75.2) % Lymph % (Auto) 23.1 (20.5-50.1) % [place] % (Auto) 11.1 H (2-8) % Eos % (Auto) 3.6 H (1.0-3.0) % Baso % (Auto) 1.4 H (0.0-1.0) % Sodium (135-145) mmol/L Potassium (3.6-5.0) mmol/L Chloride (101-111) mmol/L Carbon Dioxide (21.0-31.0) mmol/L Anion Gap BUN (7-18) mg/dL Creatinine (0.6-1.3) mg/dL Est Cr Clr Drug Dosing mL/min Estimated GFR (MDRD) BUN/Creatinine Ratio Glucose (74-105) mg/dL Calcium (8.4-10.2) mg/dl Total Bilirubin (0.2-1.0) mg/dL AST (10-42) IU/L ALT (10-60) IU/L Alkaline Phosphatase (42-121) IU/L Troponin I 0.05 H* (0.00-0.02) ng/ml B-Natriuretic Peptide 4110 H (0-100) pg/ml Total Protein (6.7-8.2) g/dl Albumin (3.2-5.5) g/dl Globulin Albumin/Globulin Ratio Urine Color (YELLOW) Urine Appearance (CLEAR) Urine pH (5.0-9.0) Ur Specific [place] (1.005-1.030) Urine Protein (NEGATIVE) Urine Glucose (UA) (NEGATIVE) Urine Ketones (NEGATIVE) Urine Occult Blood (NEGATIVE) Urine Nitrite (NEGATIVE) Urine Bilirubin (NEGATIVE) Urine Urobilinogen (0.2-1.0) mg/dL Ur Leukocyte Esterase (NEGATIVE) Urine RBC /HPF Urine WBC (0-5/HPF) /HPF Ur Epithelial Cells /HPF Urine Bacteria (0-FEW/HPF) /HPF Hyaline Casts /LPF Urine Mucus /LPF Urine Opiates Screen Negative (NEGATIVE) Ur Oxycodone Screen Positive H (NEGATIVE) Urine Methadone Screen Negative (NEGATIVE) Ur Barbiturates Screen Negative (NEGATIVE) U Tricyclic Antidepress Negative (NEGATIVE) Ur Phencyclidine Scrn Negative (NEGATIVE) Ur Amphetamine Screen Negative (NEGATIVE) U Methamphetamines Scrn Negative (NEGATIVE) Urine MDMA Screen Negative (NEGATIVE) U Benzodiazepines Scrn Positive H (NEGATIVE) Urine Cocaine Screen Negative (NEGATIVE) U Marijuana (THC) Screen Negative (NEGATIVE) Ethyl Alcohol mg/dL 11/28/17 Range/Units 06:36 WBC (5.0-10.0) 10^3/uL RBC (4.6-6.2) 10^6/uL Hgb (14.0-18.0) g/dL Hct (40.0-54.0) % MCV (80-100) fL MCH (27.0-34.0) pg MCHC (33.0-35.0) g/dL Plt Count (150-450) 10^3/uL Neut % (Auto) (42.2-75.2) % Lymph % (Auto) (20.5-50.1) % [place] % (Auto) (2-8) % Eos % (Auto) (1.0-3.0) % Baso % (Auto) (0.0-1.0) % Sodium (135-145) mmol/L Potassium (3.6-5.0) mmol/L Chloride (101-111) mmol/L Carbon Dioxide (21.0-31.0) mmol/L Anion Gap BUN (7-18) mg/dL Creatinine (0.6-1.3) mg/dL Est Cr Clr Drug Dosing mL/min Estimated GFR (MDRD) BUN/Creatinine Ratio Glucose (74-105) mg/dL Calcium (8.4-10.2) mg/dl Total Bilirubin (0.2-1.0) mg/dL AST (10-42) IU/L ALT (10-60) IU/L Alkaline Phosphatase (42-121) IU/L Troponin I (0.00-0.02) ng/ml B-Natriuretic Peptide (0-100) pg/ml Total Protein (6.7-8.2) g/dl Albumin (3.2-5.5) g/dl Globulin Albumin/Globulin Ratio Urine Color (YELLOW) Urine Appearance (CLEAR) Urine pH (5.0-9.0) Ur Specific [place] (1.005-1.030) Urine Protein (NEGATIVE) Urine Glucose (UA) (NEGATIVE) Urine Ketones (NEGATIVE) Urine Occult Blood (NEGATIVE) Urine Nitrite (NEGATIVE) Urine Bilirubin (NEGATIVE) Urine Urobilinogen (0.2-1.0) mg/dL Ur Leukocyte Esterase (NEGATIVE) Urine RBC /HPF Urine WBC (0-5/HPF) /HPF Ur Epithelial Cells /HPF Urine Bacteria (0-FEW/HPF) /HPF Hyaline Casts /LPF Urine Mucus /LPF Urine Opiates Screen (NEGATIVE) Ur Oxycodone Screen (NEGATIVE) Urine Methadone Screen (NEGATIVE) Ur Barbiturates Screen (NEGATIVE) U Tricyclic Antidepress (NEGATIVE) Ur Phencyclidine Scrn (NEGATIVE) Ur Amphetamine Screen (NEGATIVE) U Methamphetamines Scrn (NEGATIVE) Urine MDMA Screen (NEGATIVE) U Benzodiazepines Scrn (NEGATIVE) Urine Cocaine Screen (NEGATIVE) U Marijuana (THC) Screen (NEGATIVE) Ethyl Alcohol < 5 mg/dL Meds: Medications Generic Name Dose Route Start Last Admin Trade Name Freq PRN Reason Stop Dose Admin Acetaminophen 650 mg 11/28/17 10:46 Tylenol PO Q4H PRN Pain (Mild 1-3)/fever Albuterol 2.5 mg 11/28/17 10:10 Proventil Neb Soln NEB Q6HRRT PRN Shortness of Breath Alprazolam 0.25 mg 11/28/17 10:10 Xanax PO BID PRN Anxiety Amoxicillin/Clavulanate Potassium 1 tab 11/28/17 14:00 Augmentin 500 Mg\125 Mg PO Q8HR ANGELIQUE Carvedilol 6.25 mg 11/28/17 11:00 Coreg PO BID ANGELIQUE Digoxin 250 mcg 11/28/17 10:15 Lanoxin PO DAILY ANGELIQUE Docusate Sodium 100 mg 11/28/17 10:46 Colace PO BID PRN Constipation Furosemide 40 mg 11/28/17 10:15 Lasix PO BIDDIURETIC [facility] Heparin Sodium (Porcine) 5,000 units 11/28/17 14:00 Heparin Sodium SUBCUT Q8HR [facility] Ibuprofen 600 mg 11/28/17 10:10 Motrin PO Q8H PRN Pain Lisinopril 2.5 mg 11/28/17 12:45 Prinivil PO DAILY [facility] Mometasone Furoate/Formoterol Fumar 2 puff 11/28/17 18:00 Dulera 200-5 Mcg IH BIDRT [facility] Non-Formulary Medication 3 mg 11/28/17 10:10 Melatonin/Pyridoxine Hcl (B6) [Melatonin 3 Mg Tablet] PO BEDTIME PRN for sleep Pantoprazole Sodium 40 mg 11/28/17 10:15 Protonix PO DAILY [facility] Potassium Chloride 40 meq 11/28/17 12:45 Klor-Con 10 PO BID [facility] Sodium Chloride 10 ml 11/28/17 10:46 Saline Flush FLUSH ASDIRECTED PRN Keep Vein Open Spironolactone 25 mg 11/28/17 10:15 Aldactone PO DAILY [facility] Zolpidem Tartrate 5 mg 11/28/17 10:46 Ambien PO BEDTIME PRN Sleep Discontinued Medications Generic Name Dose Route Start Last Admin Trade Name Freq PRN Reason Stop Dose Admin Albuterol/Ipratropium 3 ml 11/28/17 06:22 11/28/17 06:28 Duoneb 3.0-0.5 Mg/3 Ml NEB 11/28/17 06:23 3 ml ONETIME ONE Administration Diphenhydramine HCl 25 mg 11/28/17 04:44 11/28/17 04:59 Benadryl IVPUSH 11/28/17 04:45 25 mg ONETIME ONE Administration Furosemide 40 mg 11/28/17 06:20 11/28/17 06:28 Lasix IVPUSH 11/28/17 06:21 40 mg NOW ONE Administration Lorazepam 1 mg 11/28/17 05:42 11/28/17 05:49 Ativan IVPUSH 11/28/17 05:43 1 mg ONETIME ONE Administration Metoclopramide HCl 10 mg 11/28/17 06:02 11/28/17 06:21 Reglan IVPUSH 11/28/17 06:03 10 mg ONETIME ONE Administration Departure - Departure Disposition: Refer to Observation Clinical Impression: Oxycodone use disorder, moderate CHF (congestive heart failure) Qualifiers: Qualified Code(s): I50.9 - Heart failure, unspecified - Discharge Information <Maia Cheng - Last Filed: 11/28/17 12:41> ED ROS GENERAL - Review of Systems Review Of Systems: ROS reveals no pertinent complaints other than HPI. ED EXAM, GENERAL - Physical Exam Exam: See Below Course - Radiology Interpretation Free Text/Narrative:: chest xray: IMPRESSION: 1. Cardiomegaly 2. No acute pulmonary disease See rad report - Re-Assessments/Exams Free Text/Narrative Re-Assessment/Exam: 11/28/17 09:48 A Vulnerable Adult form was filled out and faxed to [facility] [place] [facility] [employer] [facility]. Departure - Departure Time of Disposition: 09:19 Condition: Poor - Discharge Information *PRESCRIPTION DRUG MONITORING PROGRAM REVIEWED*: No *COPY OF PRESCRIPTION DRUG MONITORING REPORT IN PATIENT NIMA: No
[2017-11-28] MEDS ORDERED: diphenhydrAMINE 50 MG/ML SDV IVPUSH ONE (04:44)
[2017-11-28 04:51] LABS: ANION GAP 14.9; CHLORIDE,CL 102 mmol/L (101-111); SODIUM,NA 137 mmol/L (135-145)
[2017-11-28] MEDS ORDERED: LORazepam 2 MG/ML Syringe IVPUSH ONE (05:42)
[2017-11-28] MEDS ORDERED: Metoclopramide 10 MG/2 ML SDV IVPUSH ONE (06:02)
[2017-11-28] MEDS ORDERED: Furosemide 40 MG/4 ML VIAL IVPUSH ONE (06:20)
[2017-11-28] MEDS ORDERED: Albuterol/Ipratropium 3.0-0.5 MG/3 ML Neb Soln NEB ONE (06:22)
[2017-11-28] MEDS ORDERED: Non-Formulary Medication 1 Each (Melatonin/Pyridoxine Hcl (B6) [Melatonin 3 Mg Tablet] 3 M PO PRN (10:10)
[2017-11-28] MEDS ORDERED: Pantoprazole 40 MG Tab.CR PO SCH (10:15)
[2017-11-28] MEDS ORDERED: Spironolactone 25 MG Tab PO SCH (10:15)
[2017-11-28] MEDS ORDERED: Digoxin 250 MCG Tab PO SCH (10:15)
[2017-11-28] MEDS ORDERED: Acetaminophen 325 MG Tab PO PRN (10:46)
[2017-11-28] MEDS ORDERED: Docusate Sodium 100 MG Cap PO PRN (10:46)
[2017-11-28] MEDS ORDERED: Carvedilol 6.25 MG Tab PO SCH (11:00)
--- NOTE | 2017-11-28 12:45 | PCM.HP ---
H&P History of Present Illness - General Date of Service: 11/28/17 Admit Problem/Dx: Admission Diagnosis/Problem Admission Diagnosis/Problem Shortness of breath - History of Present Illness Initial Comments - Free Text/Narative: The patient is a 52-year-old gentleman with a history of cardiomyopathy, chronic systolic congestive heart failure. Frequent admissions for CHF. Patient was recently hospitalized and treated for a possible pneumonia in [place]. This was or a presentation of shortness of breath and cough. Chest x-ray was read as clear but clinically with coughing appeared to have bacteria infection. The patient was treated as an inpatient at [facility] but then signed out AGAINST MEDICAL ADVICE on 27 November. Few hours after getting home the patient presented to the emergency room Was complaining of shortness of breath. No associated chest pain. No fever. No abdominal pain, no significant lower extremity swelling. Left Upper Back Pain Score (Numeric/FACES): 5 - Related Data Allergies/Adverse Reactions: Allergies Allergy/AdvReac Type Severity Reaction Status Date / Time No Known Allergies Allergy Verified 11/28/17 04:34 Home Medications: Home Meds ALPRAZolam [Xanax] 0.25 mg PO BID PRN 07/31/17 [History] Digoxin 0.25 mg PO DAILY 07/31/17 [History] Fluticasone/Salmeterol [Advair 250-50 Diskus] 1 puff INH Q12H 07/31/17 [History] Pantoprazole Sodium [Protonix] 40 mg PO DAILY 07/31/17 [History] Furosemide [Lasix] 40 mg PO BID 08/20/17 [History] Carvedilol 6.25 mg PO BID 11/12/17 [History] Ibuprofen 600 mg PO Q8H PRN MDD pain 11/12/17 [History] Lisinopril 2.5 mg PO DAILY 11/12/17 [History] Melatonin/Pyridoxine HCl (B6) [Melatonin 3 mg Tablet] 3 mg PO BEDTIME 11/12/17 [ History] Potassium Chloride 40 meq PO BID 11/12/17 [History] Spironolactone [Aldactone] 25 mg PO DAILY 11/12/17 [History] Albuterol [Proventil Neb Soln] 2.5 mg NEB Q6HRRT PRN neb 11/16/17 [Rx] Calcium Carbonate 500 mg PO TID PRN 11/28/17 [History] Past Medical History - Past Health History Medical/Surgical History: Denies Medical/Surgical History HEENT History: Reports: None Cardiovascular History: Reports: Blood Clots/VTE/DVT, Cardiomyopathy, Heart Failure, Hypertension, SOB on Exertion Respiratory History: Reports: SOB Gastrointestinal History: Reports: Cirrhosis, Gastritis, GERD Genitourinary History: Reports: Other (See Below) Other Genitourinary History: liver issues r/t ETOH Musculoskeletal History: Reports: Arthritis, Other (See Below) Other Musculoskeletal History: torn left and right upper arm tendon. missed surgery 03/2017 Neurological History: Reports: None Psychiatric History: Reports: Addiction, Anxiety, Depression, Panic Attack Other Psychiatric History: ETOH treatment last approx 10 years ago Endocrine/Metabolic History: Reports: None Hematologic History: Reports: None Immunologic History: Reports: None Oncologic (Cancer) History: Reports: None Dermatologic History: Reports: None - Infectious Disease History Infectious Disease History: Reports: None - Past Surgical History Head Surgeries/Procedures: Reports: None Cardiovascular Surgical History: Reports: AICD, Percutaneous Transluminal Angioplasty Respiratory Surgical History: Reports: None GI Surgical History: Reports: None Male Surgical History: Reports: None Neurological Surgical History: Reports: None Musculoskeletal Surgical History: Reports: None Social & Family History - Family History Family Medical History: Unobtainable Cardiac: Reports: Hypertension Other Cardiac Family History: Dad and paternal grandmother have hypertension. Respiratory: Reports: Asthma Other Respiratory Family Hisory: Mom and dad have asthma. Endocrine/Metabolic: Reports: Diabetes, Type I Other Endocrine/Metabolic Family History: Dad and paternal grandmother have type I diabetes. - Tobacco Use Smoking Status *Q: Current Every Day Smoker Years of Tobacco use: 30 Packs/Tins Daily: 10 - Caffeine Use Caffeine Use: Reports: Coffee - Recreational Drug Use Recreational Drug Use: Yes Recreational Drug Type: Reports: Marijuana/Hashish Recreational Drug Use Frequency: Socially - Living Situation & Occupation Living situation: Reports: with Family Occupation: Unemployed H&P Review of Systems - Review of Systems: Review Of Systems: See Below General: Reports: Weakness. Denies: Fever Pulmonary: Reports: Shortness of Breath, Cough. Denies: Wheezing, Pleuritic Chest Pain, Sputum, Hemoptysis Cardiovascular: Denies: Chest Pain, Edema Psychiatric: Denies: Confusion Exam - Exam Exam: See Below - Vital Signs Vital Signs: Last Vital Signs Temp 37.6 C 11/28/17 10:08 Pulse 106 H 11/28/17 10:08 Resp 36 H 11/28/17 10:08 BP 106/75 11/28/17 10:08 Pulse Ox 95 11/28/17 10:08 Weight: 80.286 kg - Exam Quality Assessment: No: Supplemental Oxygen General: Alert, Oriented Neck: Supple Lungs: Clear to Auscultation, Normal Respiratory Effort. No: Rhonchi, Wheezing Cardiovascular: Regular Rate, Regular Rhythm GI/Abdominal Exam: Normal Bowel Sounds, Soft, Non-Tender, Other (Obese) Extremities: No Pedal Edema - Patient Data Lab Results Last 24 hrs: Laboratory Results - last 24 hr 11/28/17 11/28/17 11/28/17 Range/Units 04:20 04:20 05:23 WBC 7.0 (5.0-10.0) 10^3/uL RBC 4.01 L (4.6-6.2) 10^6/uL Hgb 10.7 L (14.0-18.0) g/dL Hct 34.0 L (40.0-54.0) % MCV 84.8 (80-100) fL MCH 26.7 L (27.0-34.0) pg MCHC 31.5 L (33.0-35.0) g/dL Plt Count 166 (150-450) 10^3/uL Neut % (Auto) 59.7 (42.2-75.2) % Lymph % (Auto) 23.3 (20.5-50.1) % [place] % (Auto) 11.6 H (2-8) % Eos % (Auto) 4.1 H (1.0-3.0) % Baso % (Auto) 1.3 H (0.0-1.0) % Sodium 137 (135-145) mmol/L Potassium 3.9 (3.6-5.0) mmol/L Chloride 102 (101-111) mmol/L Carbon Dioxide 24.0 (21.0-31.0) mmol/L Anion Gap 14.9 BUN 31 H (7-18) mg/dL Creatinine 1.0 (0.6-1.3) mg/dL Est Cr Clr Drug Dosing 88.38 mL/min Estimated GFR (MDRD) > 60 BUN/Creatinine Ratio 31.00 Glucose 97 (74-105) mg/dL Calcium 9.5 (8.4-10.2) mg/dl Total Bilirubin 2.4 H (0.2-1.0) mg/dL AST 45 H (10-42) IU/L ALT 13 (10-60) IU/L Alkaline Phosphatase 112 (42-121) IU/L Troponin I 0.05 H* (0.00-0.02) ng/ml B-Natriuretic Peptide 3920 H (0-100) pg/ml Total Protein 7.5 (6.7-8.2) g/dl Albumin 3.2 (3.2-5.5) g/dl Globulin 4.3 Albumin/Globulin Ratio 0.74 Urine Color Suad (YELLOW) Urine Appearance Slightly cloudy (CLEAR) Urine pH 5.5 (5.0-9.0) Ur Specific Lizella >= 1.030 (1.005-1.030) Urine Protein 100 H (NEGATIVE) Urine Glucose (UA) Negative (NEGATIVE) Urine Ketones Trace H (NEGATIVE) Urine Occult Blood Negative (NEGATIVE) Urine Nitrite Negative (NEGATIVE) Urine Bilirubin Negative (NEGATIVE) Urine Urobilinogen 1.0 (0.2-1.0) mg/dL Ur Leukocyte Esterase Negative (NEGATIVE) Urine RBC Not seen /HPF Urine WBC 0-5 (0-5/HPF) /HPF Ur Epithelial Cells Few /HPF Urine Bacteria Moderate H (0-FEW/HPF) /HPF Hyaline Casts Few H /LPF Urine Mucus Moderate H /LPF Urine Opiates Screen (NEGATIVE) Ur Oxycodone Screen (NEGATIVE) Urine Methadone Screen (NEGATIVE) Ur Barbiturates Screen (NEGATIVE) U Tricyclic Antidepress (NEGATIVE) Ur Phencyclidine Scrn (NEGATIVE) Ur Amphetamine Screen (NEGATIVE) U Methamphetamines Scrn (NEGATIVE) Urine MDMA Screen (NEGATIVE) U Benzodiazepines Scrn (NEGATIVE) Urine Cocaine Screen (NEGATIVE) U Marijuana (THC) Screen (NEGATIVE) Ethyl Alcohol mg/dL 11/28/17 11/28/17 11/28/17 Range/Units 05:24 06:36 06:36 WBC 6.3 (5.0-10.0) 10^3/uL RBC 4.19 L (4.6-6.2) 10^6/uL Hgb 11.2 L (14.0-18.0) g/dL Hct 35.9 L (40.0-54.0) % MCV 85.7 (80-100) fL MCH 26.7 L (27.0-34.0) pg MCHC 31.2 L (33.0-35.0) g/dL Plt Count 162 (150-450) 10^3/uL Neut % (Auto) 60.8 (42.2-75.2) % Lymph % (Auto) 23.1 (20.5-50.1) % [place] % (Auto) 11.1 H (2-8) % Eos % (Auto) 3.6 H (1.0-3.0) % Baso % (Auto) 1.4 H (0.0-1.0) % Sodium (135-145) mmol/L Potassium (3.6-5.0) mmol/L Chloride (101-111) mmol/L Carbon Dioxide (21.0-31.0) mmol/L Anion Gap BUN (7-18) mg/dL Creatinine (0.6-1.3) mg/dL Est Cr Clr Drug Dosing mL/min Estimated GFR (MDRD) BUN/Creatinine Ratio Glucose (74-105) mg/dL Calcium (8.4-10.2) mg/dl Total Bilirubin (0.2-1.0) mg/dL AST (10-42) IU/L ALT (10-60) IU/L Alkaline Phosphatase (42-121) IU/L Troponin I 0.05 H* (0.00-0.02) ng/ml B-Natriuretic Peptide 4110 H (0-100) pg/ml Total Protein (6.7-8.2) g/dl Albumin (3.2-5.5) g/dl Globulin Albumin/Globulin Ratio Urine Color (YELLOW) Urine Appearance (CLEAR) Urine pH (5.0-9.0) Ur Specific Lizella (1.005-1.030) Urine Protein (NEGATIVE) Urine Glucose (UA) (NEGATIVE) Urine Ketones (NEGATIVE) Urine Occult Blood (NEGATIVE) Urine Nitrite (NEGATIVE) Urine Bilirubin (NEGATIVE) Urine Urobilinogen (0.2-1.0) mg/dL Ur Leukocyte Esterase (NEGATIVE) Urine RBC /HPF Urine WBC (0-5/HPF) /HPF Ur Epithelial Cells /HPF Urine Bacteria (0-FEW/HPF) /HPF Hyaline Casts /LPF Urine Mucus /LPF Urine Opiates Screen Negative (NEGATIVE) Ur Oxycodone Screen Positive H (NEGATIVE) Urine Methadone Screen Negative (NEGATIVE) Ur Barbiturates Screen Negative (NEGATIVE) U Tricyclic Antidepress Negative (NEGATIVE) Ur Phencyclidine Scrn Negative (NEGATIVE) Ur Amphetamine Screen Negative (NEGATIVE) U Methamphetamines Scrn Negative (NEGATIVE) Urine MDMA Screen Negative (NEGATIVE) U Benzodiazepines Scrn Positive H (NEGATIVE) Urine Cocaine Screen Negative (NEGATIVE) U Marijuana (THC) Screen Negative (NEGATIVE) Ethyl Alcohol mg/dL 11/28/17 Range/Units 06:36 WBC (5.0-10.0) 10^3/uL RBC (4.6-6.2) 10^6/uL Hgb (14.0-18.0) g/dL Hct (40.0-54.0) % MCV (80-100) fL MCH (27.0-34.0) pg MCHC (33.0-35.0) g/dL Plt Count (150-450) 10^3/uL Neut % (Auto) (42.2-75.2) % Lymph % (Auto) (20.5-50.1) % [place] % (Auto) (2-8) % Eos % (Auto) (1.0-3.0) % Baso % (Auto) (0.0-1.0) % Sodium (135-145) mmol/L Potassium (3.6-5.0) mmol/L Chloride (101-111) mmol/L Carbon Dioxide (21.0-31.0) mmol/L Anion Gap BUN (7-18) mg/dL Creatinine (0.6-1.3) mg/dL Est Cr Clr Drug Dosing mL/min Estimated GFR (MDRD) BUN/Creatinine Ratio Glucose (74-105) mg/dL Calcium (8.4-10.2) mg/dl Total Bilirubin (0.2-1.0) mg/dL AST (10-42) IU/L ALT (10-60) IU/L Alkaline Phosphatase (42-121) IU/L Troponin I (0.00-0.02) ng/ml B-Natriuretic Peptide (0-100) pg/ml Total Protein (6.7-8.2) g/dl Albumin (3.2-5.5) g/dl Globulin Albumin/Globulin Ratio Urine Color (YELLOW) Urine Appearance (CLEAR) Urine pH (5.0-9.0) Ur Specific Lizella (1.005-1.030) Urine Protein (NEGATIVE) Urine Glucose (UA) (NEGATIVE) Urine Ketones (NEGATIVE) Urine Occult Blood (NEGATIVE) Urine Nitrite (NEGATIVE) Urine Bilirubin (NEGATIVE) Urine Urobilinogen (0.2-1.0) mg/dL Ur Leukocyte Esterase (NEGATIVE) Urine RBC /HPF Urine WBC (0-5/HPF) /HPF Ur Epithelial Cells /HPF Urine Bacteria (0-FEW/HPF) /HPF Hyaline Casts /LPF Urine Mucus /LPF Urine Opiates Screen (NEGATIVE) Ur Oxycodone Screen (NEGATIVE) Urine Methadone Screen (NEGATIVE) Ur Barbiturates Screen (NEGATIVE) U Tricyclic Antidepress (NEGATIVE) Ur Phencyclidine Scrn (NEGATIVE) Ur Amphetamine Screen (NEGATIVE) U Methamphetamines Scrn (NEGATIVE) Urine MDMA Screen (NEGATIVE) U Benzodiazepines Scrn (NEGATIVE) Urine Cocaine Screen (NEGATIVE) U Marijuana (THC) Screen (NEGATIVE) Ethyl Alcohol < 5 mg/dL Result Diagrams: 11/28/17 06:36 11/28/17 04:20 Imaging Impressions Last 24 hrs: Chest x-ray per my reading shows no pneumonia, there is cardiomegaly - Problem List (1) Acute bronchitis SNOMED Code(s): 64422071 ICD Code: J20.9 - ACUTE BRONCHITIS, UNSPECIFIED Status: Acute Current Visit: Yes (2) Chronic systolic HF (heart failure) SNOMED Code(s): 791309873 ICD Code: I50.22 - CHRONIC SYSTOLIC (CONGESTIVE) HEART FAILURE Status: Acute Current Visit: No Problem List Initiated/Reviewed/Updated: Yes Orders Last 24hrs: Active Orders 24 hr Category Date Time Status Patient Status [ADT] Routine ADT 11/28/17 10:33 Active EKG Documentation Completion [RC] STAT Care 11/28/17 04:09 Active Oxygen Therapy [RC] PRN Care 11/28/17 10:33 Active Peripheral IV Care [RC] ,21 Care 11/28/17 10:49 Active RT Aerosol Therapy [RC] ASDIRECTED Care 11/28/17 06:22 Active Up With Assistance [RC] ASDIRECTED Care 11/28/17 10:38 Active VTE/DVT Education [RC] PER UNIT ROUTINE Care 11/28/17 10:33 Active Vital Signs [RC] Q4H Care 11/28/17 10:33 Active 2 Gram Sodium Diet [DIET] Diet 11/28/17 Lunch Active Abdomen Pelvis wo Cont [CT] Urgent Exams 11/28/17 06:03 Stop Req Chest 1V Frontal [CR] Urgent Exams 11/28/17 04:09 Taken ALPRAZolam [Xanax] Med 11/28/17 10:10 Active 0.25 mg PO BID PRN Acetaminophen [Tylenol] Med 11/28/17 10:46 Active 650 mg PO Q4H PRN Albuterol [Proventil Neb Soln] Med 11/28/17 10:10 Active 2.5 mg NEB Q6HRRT PRN Amoxicillin/Clavulanate K [Augmentin 500 MG\125 MG] Med 11/28/17 14:00 Active 1 tab PO Q8HR Carvedilol [Coreg] Med 11/28/17 11:00 Active 6.25 mg PO BID Digoxin [Lanoxin] Med 11/28/17 10:15 Active 250 mcg PO DAILY Docusate Sodium [Colace] Med 11/28/17 10:46 Active 100 mg PO BID PRN Furosemide [Lasix] Med 11/28/17 10:15 Active 40 mg PO BIDDIURETIC Heparin Sodium Med 11/28/17 14:00 Active 5,000 units SUBCUT Q8HR Ibuprofen [Motrin] Med 11/28/17 10:10 Active 600 mg PO Q8H PRN Lisinopril [Prinivil] Med 11/28/17 12:45 Active 2.5 mg PO DAILY Melatonin/Pyridoxine HCl (B6) [Melatonin 3 mg Tablet] Med 11/28/17 10:10 Ordered 3 mg PO BEDTIME PRN Mometasone/Formoterol [Dulera 200-5 MCG] Med 11/28/17 18:00 Active 2 puff IH BIDRT Pantoprazole [ProTONIX] Med 11/28/17 10:15 Active 40 mg PO DAILY Potassium Chloride [Klor-Con 10] Med 11/28/17 12:45 Active 40 meq PO BID Sodium Chloride 0.9% [Saline Flush] Med 11/28/17 10:46 Active 10 ml FLUSH ASDIRECTED PRN Spironolactone [Aldactone] Med 11/28/17 10:15 Active 25 mg PO DAILY Zolpidem [Ambien] Med 11/28/17 10:46 Active 5 mg PO BEDTIME PRN Antiembolic Hose [OM.PC] Per Unit Routine Oth 11/28/17 10:48 Ordered Peripheral IV Insertion Adult [OM.PC] Routine Oth 11/28/17 10:46 Ordered Saline Lock Insert [OM.PC] Routine Oth 11/28/17 10:46 Ordered Resuscitation Status Routine Resus Stat 11/28/17 10:33 Ordered Medication Orders Acetaminophen (Tylenol) 650 mg PO Q4H PRN PRN Reason: Pain (Mild 1-3)/fever Albuterol (Proventil Neb Soln) 2.5 mg NEB Q6HRRT PRN PRN Reason: Shortness of Breath Alprazolam (Xanax) 0.25 mg PO BID PRN PRN Reason: Anxiety Amoxicillin/Clavulanate Potassium (Augmentin 500 Mg\125 Mg) 1 tab PO Q8HR ANGELIQUE Carvedilol (Coreg) 6.25 mg PO BID ANGELIQUE Digoxin (Lanoxin) 250 mcg PO DAILY ANGELIQUE Docusate Sodium (Colace) 100 mg PO BID PRN PRN Reason: Constipation Furosemide (Lasix) 40 mg PO BIDDIURETIC ANGELIQUE Heparin Sodium (Porcine) (Heparin Sodium) 5,000 units SUBCUT Q8HR ANGELIQUE Ibuprofen (Motrin) 600 mg PO Q8H PRN PRN Reason: Pain Lisinopril (Prinivil) 2.5 mg PO DAILY [facility] Mometasone Furoate/Formoterol Fumar (Dulera 200-5 Mcg) 2 puff IH BIDRT [facility] Non-Formulary Medication (Melatonin/Pyridoxine Hcl (B6) [Melatonin 3 Mg Tablet] ) 3 mg PO BEDTIME PRN PRN Reason: for sleep Pantoprazole Sodium (Protonix) 40 mg PO DAILY [facility] Potassium Chloride (Klor-Con 10) 40 meq PO BID ANGELIQUE Sodium Chloride (Saline Flush) 10 ml FLUSH ASDIRECTED PRN PRN Reason: Keep Vein Open Spironolactone (Aldactone) 25 mg PO DAILY ANGELIQUE Zolpidem Tartrate (Ambien) 5 mg PO BEDTIME PRN PRN Reason: Sleep Assessment/Plan Comment:: The patient is a 52-year-old gentleman with a frequent presentation to the emergency room and hospital admissions. The patient has multiple chronic medical problems including severe systolic congestive heart failure and he also has frequent methamphetamine and other drug use. The patient presented with shortness of breath. At this point the patient has no pneumonia, congestive heart failure on chest x-ray, has good oxygen saturations. We'll monitor the patient For the recently diagnosed bronchitis possible pneumonia we'll continue to treat with Augmentin Chronic systolic congestive heart failure Treat with diuretics including Lasix and spironolactone Treat with Coreg Follow electrolytes and replace them as needed COPD appears stable Will continue nebulizers and dulera DVT prophylaxis with subcutaneous heparin
[2017-11-28] MEDS: Furosemide 40 MG Tab PO SCH ×2 (13:24→13:34)
[2017-11-28] MEDS: Carvedilol 6.25 MG Tab PO SCH ×2 (13:33→20:30)
[2017-11-28] MEDS: Amoxicillin/Clavulanate K 500-125 MG Tab PO SCH ×2 (13:33→21:52)
[2017-11-28] MEDS: Pantoprazole 40 MG Tab.CR PO SCH (13:34)
[2017-11-28] MEDS: Digoxin 250 MCG Tab PO SCH (13:34)
[2017-11-28] MEDS: Potassium Chloride 10 MEQ Tab.ER PO SCH ×2 (13:34→20:39)
[2017-11-28] MEDS: Spironolactone 25 MG Tab PO SCH (13:34)
[2017-11-28] MEDS: Lisinopril 5 MG Tab PO SCH (13:35)
[2017-11-28] MEDS: Heparin Sodium 5,000 Units/ML Vial SUBCUT SCH ×2 (13:36→21:53)
[2017-11-28] MEDS: ALPRAZolam 0.25 MG Tab PO PRN ×2 (13:48→23:42)
[2017-11-28] MEDS ORDERED: Ondansetron 4 MG/2 ML SDV IV PRN ×2 (14:35→19:20)
[2017-11-28] MEDS: Sodium Chloride 0.9% 10 ML Syringe FLUSH PRN (14:50)
[2017-11-28] MEDS ORDERED: Aluminum Hydroxide/Magnesium Hydroxide/Simethicone Susp 30 ML Cup PO PRN (15:45)
[2017-11-28] MEDS ORDERED: Iopamidol 612 MG/ML 100 ML Bottle IVPUSH ONE (17:31)
[2017-11-28] MEDS ORDERED: Barium Sulfate w/v 2.1% Oral Susp 450 ML Bottle PO ONE ×2 (17:32→18:30)
[2017-11-28] MEDS: Formoterol/Mometasone 200-5 MCG 8.8 GM Inhaler IH SCH (17:52)
[2017-11-28] MEDS: Albuterol 0.083% 2.5 MG/3 ML Neb Soln NEB PRN (19:49)
[2017-11-28] MEDS: Ibuprofen 600 MG Tab PO PRN (21:51)
[2017-11-28] MEDS: Zolpidem 5 MG Tab PO PRN (23:42)
[2017-11-29] MEDS: Heparin Sodium 5,000 Units/ML Vial SUBCUT SCH ×3 (06:07→21:45)
[2017-11-29] MEDS: Amoxicillin/Clavulanate K 500-125 MG Tab PO SCH ×3 (06:08→21:43)
[2017-11-29] MEDS: Ibuprofen 600 MG Tab PO PRN ×3 (06:09→22:53)
[2017-11-29 06:58] LABS: ANION GAP 13.4
--- NOTE | 2017-11-29 10:58 | PCM.PN ---
- General Info Date of Service: 11/29/17 Admission Dx/Problem (Free Text): Admission Diagnosis/Problem Admission Diagnosis/Problem Shortness of breath Subjective Update: was c/o abdominal pain, nausea feeling of "coming off drugs" diffuse in the abdomen no cp + chronic sob - Review of Systems General: Reports: Weakness. Denies: Fever Pulmonary: Reports: Shortness of Breath Cardiovascular: Denies: Chest Pain Gastrointestinal: Reports: Abdominal Pain Genitourinary: Denies: Dysuria Psychiatric: Reports: Anxiety. Denies: Confusion - Patient Data Vitals - Most Recent: Last Vital Signs Temp 36.8 C 11/29/17 07:00 Pulse 88 11/29/17 07:00 Resp 16 11/29/17 07:00 BP 87/61 L 11/29/17 07:00 Pulse Ox 94 L 11/29/17 07:00 Weight - Most Recent: 80.649 kg Lab Results Last 24 Hours: Laboratory Results - last 24 hr 11/29/17 11/29/17 11/29/17 Range/Units 06:10 06:10 06:10 WBC 5.9 (5.0-10.0) 10^3/uL RBC 3.80 L (4.6-6.2) 10^6/uL Hgb 10.1 L (14.0-18.0) g/dL Hct 32.2 L (40.0-54.0) % MCV 84.7 (80-100) fL MCH 26.6 L (27.0-34.0) pg MCHC 31.4 L (33.0-35.0) g/dL Plt Count 152 (150-450) 10^3/uL Neut % (Auto) 53.0 (42.2-75.2) % Lymph % (Auto) 27.7 (20.5-50.1) % [place] % (Auto) 12.2 H (2-8) % Eos % (Auto) 5.9 H (1.0-3.0) % Baso % (Auto) 1.2 H (0.0-1.0) % Sodium 134 L (135-145) mmol/L Potassium 4.4 (3.6-5.0) mmol/L Chloride 103 (101-111) mmol/L Carbon Dioxide 22.0 (21.0-31.0) mmol/L Anion Gap 13.4 BUN 38 H (7-18) mg/dL Creatinine 1.4 H (0.6-1.3) mg/dL Est Cr Clr Drug Dosing 63.13 mL/min Estimated GFR (MDRD) 54 Glucose 75 (74-105) mg/dL Lactic Acid 1.6 (0.5-2.2) mmol/L Calcium 8.7 (8.4-10.2) mg/dl Total Bilirubin 2.8 H (0.2-1.0) mg/dL Direct Bilirubin 1.1 H (0.0-0.2) mg/dL Indirect Bilirubin 1.7 AST 45 H (10-42) IU/L ALT 16 (10-60) IU/L Alkaline Phosphatase 91 (42-121) IU/L Total Protein 6.8 (6.7-8.2) g/dl Albumin 3.0 L (3.2-5.5) g/dl Globulin 3.8 Albumin/Globulin Ratio 0.79 Lipase 30 (22-51) U/L Med Orders - Current: Current Medications Acetaminophen (Tylenol) 650 mg PO Q4H PRN PRN Reason: Pain (Mild 1-3)/fever Al Hydroxide/Mg Hydroxide (Mag-Al Plus) 10 ml PO Q4H PRN PRN Reason: Indigestion Last Admin: 11/28/17 16:22 Dose: 10 ml Albuterol (Proventil Neb Soln) 2.5 mg NEB Q6HRRT PRN PRN Reason: Shortness of Breath Last Admin: 11/28/17 19:49 Dose: 2.5 mg Alprazolam (Xanax) 0.25 mg PO BID PRN PRN Reason: Anxiety Last Admin: 11/28/17 23:42 Dose: 0.25 mg Amoxicillin/Clavulanate Potassium (Augmentin 500 Mg\\125 Mg) 1 tab PO Q8HR [facility] Last Admin: 11/29/17 06:08 Dose: 1 tab Carvedilol (Coreg) 6.25 mg PO BID [facility] Last Admin: 11/28/17 20:30 Dose: Not Given Digoxin (Lanoxin) 250 mcg PO DAILY [facility] Last Admin: 11/28/17 13:34 Dose: 250 mcg Docusate Sodium (Colace) 100 mg PO BID PRN PRN Reason: Constipation Furosemide (Lasix) 40 mg PO BIDDIURETIC [facility] Last Admin: 11/28/17 13:34 Dose: 40 mg Heparin Sodium (Porcine) (Heparin Sodium) 5,000 units SUBCUT Q8HR [facility] Last Admin: 11/29/17 06:07 Dose: 5,000 units Ibuprofen (Motrin) 600 mg PO Q8H PRN PRN Reason: Pain Last Admin: 11/29/17 06:09 Dose: 600 mg Lisinopril (Prinivil) 2.5 mg PO DAILY [facility] Last Admin: 11/28/17 13:35 Dose: 2.5 mg Mometasone Furoate/Formoterol Fumar (Dulera 200-5 Mcg) 2 puff IH BIDRT [facility] Last Admin: 11/28/17 17:52 Dose: 2 puff Ondansetron HCl (Zofran) 4 mg IV Q6HR PRN PRN Reason: Nausea/Vomiting Pantoprazole Sodium (Protonix) 40 mg PO DAILY [facility] Last Admin: 11/28/17 13:34 Dose: 40 mg Potassium Chloride (Klor-Con 10) 40 meq PO BID [facility] Last Admin: 11/28/17 20:39 Dose: Not Given Sodium Chloride (Saline Flush) 10 ml FLUSH ASDIRECTED PRN PRN Reason: Keep Vein Open Last Admin: 11/28/17 14:50 Dose: 10 ml Spironolactone (Aldactone) 25 mg PO DAILY [facility] Last Admin: 11/28/17 13:34 Dose: 25 mg Zolpidem Tartrate (Ambien) 5 mg PO BEDTIME PRN PRN Reason: Sleep Last Admin: 11/28/17 23:42 Dose: 5 mg Discontinued Medications Albuterol/Ipratropium (Duoneb 3.0-0.5 Mg/3 Ml) 3 ml NEB ONETIME ONE Stop: 11/28/17 06:23 Last Admin: 11/28/17 06:28 Dose: 3 ml Barium Sulfate (Readi-Cat 2) 225 ml PO ONETIME ONE Stop: 11/28/17 17:33 Last Admin: 11/28/17 17:51 Dose: 225 ml Barium Sulfate (Readi-Cat 2) 225 ml PO ONETIME ONE Stop: 11/28/17 18:31 Last Admin: 11/28/17 18:25 Dose: 225 ml Carvedilol (Coreg) 6.25 mg PO BID [facility] Last Admin: 11/28/17 14:06 Dose: Not Given Digoxin (Lanoxin) 250 mcg PO DAILY [facility] Last Admin: 11/28/17 14:05 Dose: Not Given Diphenhydramine HCl (Benadryl) 25 mg IVPUSH ONETIME ONE Stop: 11/28/17 04:45 Last Admin: 11/28/17 04:59 Dose: 25 mg Furosemide (Lasix) 40 mg IVPUSH NOW ONE Stop: 11/28/17 06:21 Last Admin: 11/28/17 06:28 Dose: 40 mg Iopamidol (Isovue-300 (61%)) 100 ml IVPUSH ONETIME ONE Stop: 11/28/17 17:32 Last Admin: 11/28/17 18:06 Dose: 100 ml Lorazepam (Ativan) 1 mg IVPUSH ONETIME ONE Stop: 11/28/17 05:43 Last Admin: 11/28/17 05:49 Dose: 1 mg Metoclopramide HCl (Reglan) 10 mg IVPUSH ONETIME ONE Stop: 11/28/17 06:03 Last Admin: 11/28/17 06:21 Dose: 10 mg Non-Formulary Medication (Melatonin/Pyridoxine Hcl (B6) [Melatonin 3 Mg Tablet] ) 3 mg PO BEDTIME PRN PRN Reason: for sleep Ondansetron HCl (Zofran) 4 mg IV Q4H PRN PRN Reason: Nausea/Vomiting Last Admin: 11/28/17 14:50 Dose: 4 mg Pantoprazole Sodium (Protonix) 40 mg PO DAILY [facility] Last Admin: 11/28/17 14:05 Dose: Not Given Spironolactone (Aldactone) 25 mg PO DAILY [facility] Last Admin: 11/28/17 14:04 Dose: Not Given - Exam General: Alert, Oriented Lungs: Rales (basilar) GI/Abdominal Exam: Normal Bowel Sounds, Soft, Non-Tender, Other (obese). No: Distended, Rigid, Rebound Extremities: No Pedal Edema Skin: Warm, Dry Neurological: No New Focal Deficit Psy/Mental Status: Alert, Normal Affect, Normal Mood - Problem List & Annotations (1) Acute bronchitis SNOMED Code(s): 46509543 Code(s): J20.9 - ACUTE BRONCHITIS, UNSPECIFIED Status: Acute Current Visit: Yes (2) Chronic systolic HF (heart failure) SNOMED Code(s): 013755632 Code(s): I50.22 - CHRONIC SYSTOLIC (CONGESTIVE) HEART FAILURE Status: Acute Current Visit: No - Problem List Review Problem List Initiated/Reviewed/Updated: Yes - My Orders Last 24 Hours: My Active Orders 11/28/17 10:10 ALPRAZolam [Xanax] 0.25 mg PO BID PRN Albuterol [Proventil Neb Soln] 2.5 mg NEB Q6HRRT PRN Ibuprofen [Motrin] 600 mg PO Q8H PRN 11/28/17 10:15 Furosemide [Lasix] 40 mg PO BIDDIURETIC 11/28/17 10:33 Patient Status [ADT] Routine Oxygen Therapy [RC] PRN VTE/DVT Education [RC] PER UNIT ROUTINE Vital Signs [RC] 07,11,15,,,03 Resuscitation Status Routine 11/28/17 10:38 Up With Assistance [RC] ASDIRECTED 11/28/17 10:46 Acetaminophen [Tylenol] 650 mg PO Q4H PRN Docusate Sodium [Colace] 100 mg PO BID PRN Sodium Chloride 0.9% [Saline Flush] 10 ml FLUSH ASDIRECTED PRN Zolpidem [Ambien] 5 mg PO BEDTIME PRN Peripheral IV Insertion Adult [OM.PC] Routine Saline Lock Insert [OM.PC] Routine 11/28/17 10:48 Antiembolic Hose [OM.PC] Per Unit Routine 11/28/17 10:49 Peripheral IV Care [RC] 11/28/17 12:45 Lisinopril [Prinivil] 2.5 mg PO DAILY Potassium Chloride [Klor-Con 10] 40 meq PO BID 11/28/17 13:30 Carvedilol [Coreg] 6.25 mg PO BID Digoxin [Lanoxin] 250 mcg PO DAILY Pantoprazole [ProTONIX] 40 mg PO DAILY Spironolactone [Aldactone] 25 mg PO DAILY 11/28/17 14:00 Amoxicillin/Clavulanate K [Augmentin 500 MG\\125 MG] 1 tab PO Q8HR Heparin Sodium 5,000 units SUBCUT Q8HR 11/28/17 15:45 Alum Hydrox/Mag Hydrox/Simeth [Mag-Al Plus] 10 ml PO Q4H PRN 11/28/17 18:00 Mometasone/Formoterol [Dulera 200-5 MCG] 2 puff IH BIDRT 11/28/17 19:20 Ondansetron [Zofran] 4 mg IV Q6HR PRN 11/28/17 Lunch 2 Gram Sodium Diet [DIET] 11/30/17 05:11 HEPATIC FUNCTION PANEL,HFP [CHEM] AM 11/30/17 05:15 BASIC METABOLIC PANEL,BMP [CHEM] AM CBC WITH AUTO DIFF [HEME] AM - Plan Plan:: The patient is a 52-year-old gentleman with a frequent presentation to the emergency room and hospital admissions. The patient has multiple chronic medical problems including severe systolic congestive heart failure and he also has frequent methamphetamine and other drug use. The patient presented with shortness of breath. At this point the patient has no pneumonia, congestive heart failure on chest x-ray, We'll monitor the patient For the recently diagnosed bronchitis possible pneumonia we'll continue to treat with Augmentin Chronic systolic congestive heart failure Treat with diuretics including Lasix and spironolactone Treat with Coreg Follow electrolytes and replace them as needed abdominal pain and nausea improved since yesterday CT showed no apparent acute finding liver cirrhosis, ascites, increased LFT is likley due to congestive changes COPD appears stable Will continue nebulizers and dulera DVT prophylaxis with subcutaneous heparin
[2017-11-29] MEDS: Formoterol/Mometasone 200-5 MCG 8.8 GM Inhaler IH SCH ×2 (11:02→17:41)
[2017-11-29] MEDS: Potassium Chloride 10 MEQ Tab.ER PO SCH ×2 (11:03→20:49)
[2017-11-29] MEDS: Spironolactone 25 MG Tab PO SCH (11:03)
[2017-11-29] MEDS: Furosemide 40 MG Tab PO SCH ×2 (11:03→13:45)
[2017-11-29] MEDS: Digoxin 250 MCG Tab PO SCH (11:04)
[2017-11-29] MEDS: Pantoprazole 40 MG Tab.CR PO SCH (11:04)
[2017-11-29] MEDS: Carvedilol 6.25 MG Tab PO SCH ×2 (11:09→20:48)
[2017-11-29] MEDS: Lisinopril 5 MG Tab PO SCH (11:10)
[2017-11-29] MEDS: ALPRAZolam 0.25 MG Tab PO PRN ×2 (11:26→20:59)
[2017-11-29] MEDS: Sodium Chloride 0.9% 10 ML Syringe FLUSH PRN ×3 (11:26→21:48)
[2017-11-29] MEDS: Zolpidem 5 MG Tab PO PRN (21:43)
[2017-11-29] MEDS: Albuterol 0.083% 2.5 MG/3 ML Neb Soln NEB PRN (22:45)
[2017-11-29] MEDS ORDERED: guaiFENesin 100 MG/5 ML Soln 5 ML UD Cup PO PRN (23:37)
[2017-11-30] MEDS: Amoxicillin/Clavulanate K 500-125 MG Tab PO SCH ×3 (06:12→21:26)
[2017-11-30] MEDS: Heparin Sodium 5,000 Units/ML Vial SUBCUT SCH ×3 (06:14→21:26)
[2017-11-30] MEDS: ALPRAZolam 0.25 MG Tab PO PRN ×2 (06:19→19:40)
[2017-11-30 07:07] LABS: ANION GAP 11.3; CHLORIDE,CL 106 mmol/L (101-111); SODIUM,NA 136 mmol/L (135-145)
[2017-11-30] MEDS: Potassium Chloride 10 MEQ Tab.ER PO SCH ×2 (09:09→21:25)
[2017-11-30] MEDS: Formoterol/Mometasone 200-5 MCG 8.8 GM Inhaler IH SCH ×2 (09:09→17:35)
[2017-11-30] MEDS: Lisinopril 5 MG Tab PO SCH (09:16)
[2017-11-30] MEDS: Digoxin 250 MCG Tab PO SCH (09:17)
[2017-11-30] MEDS: Carvedilol 6.25 MG Tab PO SCH ×2 (09:18→21:25)
[2017-11-30] MEDS: Spironolactone 25 MG Tab PO SCH (09:18)
[2017-11-30] MEDS: Furosemide 40 MG Tab PO SCH ×2 (09:19→15:12)
[2017-11-30] MEDS: Pantoprazole 40 MG Tab.CR PO SCH (09:19)
[2017-11-30] MEDS ORDERED: ALPRAZolam 0.25 MG Tab PO ONE (11:06)
--- NOTE | 2017-11-30 12:29 | PCM.DCSUM1 ---
Discharge Summary - Hospital Course Free Text/Narrative:: The patient is a 52-year-old gentleman with a frequent presentation to the emergency room and hospital admissions. The patient has multiple chronic medical problems including severe systolic congestive heart failure and he also has frequent methamphetamine and other drug use. The patient presented with shortness of breath. On admission the patient had no pneumonia, congestive heart failure on chest x-ray, For the recently diagnosed bronchitis possible pneumonia we'll continue to treat with Augmentin Chronic systolic congestive heart failure Treat with diuretics including Lasix and spironolactone Treat with Coreg abdominal pain and nausea improved tolerating diet CT showed no apparent acute finding liver cirrhosis, ascites, increased LFT is likley due to congestive changes COPD appears stable Will continue nebulizers and dulera discussed abstinence from drugs and alcohol was evaluated by addicition counsellor out pt follow up is needed if he is willing Diagnosis: Stroke: No - Discharge Data Discharge Date: 11/30/17 Discharge Disposition: Home, Self-Care 01 Condition: Good - Discharge Diagnosis/Problem(s) (1) Acute bronchitis SNOMED Code(s): 78242663 ICD Code: J20.9 - ACUTE BRONCHITIS, UNSPECIFIED Status: Acute Current Visit: Yes (2) Chronic systolic HF (heart failure) SNOMED Code(s): 909801705 ICD Code: I50.22 - CHRONIC SYSTOLIC (CONGESTIVE) HEART FAILURE Status: Acute Current Visit: No - Discharge Plan *PRESCRIPTION DRUG MONITORING PROGRAM REVIEWED*: No *COPY OF PRESCRIPTION DRUG MONITORING REPORT IN PATIENT NIMA: No Home Medications: Home Meds ALPRAZolam [Xanax] 0.25 mg PO BID PRN 07/31/17 [History] Digoxin 0.25 mg PO DAILY 07/31/17 [History] Fluticasone/Salmeterol [Advair 250-50 Diskus] 1 puff INH Q12H 07/31/17 [History] Pantoprazole Sodium [Protonix] 40 mg PO DAILY 07/31/17 [History] Furosemide [Lasix] 40 mg PO BID 08/20/17 [History] Carvedilol 6.25 mg PO BID 11/12/17 [History] Ibuprofen 600 mg PO Q8H PRN MDD pain 11/12/17 [History] Lisinopril 2.5 mg PO DAILY 11/12/17 [History] Melatonin/Pyridoxine HCl (B6) [Melatonin 3 mg Tablet] 3 mg PO BEDTIME 11/12/17 [ History] Potassium Chloride 40 meq PO BID 11/12/17 [History] Spironolactone [Aldactone] 25 mg PO DAILY 11/12/17 [History] Albuterol [Proventil Neb Soln] 2.5 mg NEB Q6HRRT PRN neb 11/16/17 [Rx] Calcium Carbonate 500 mg PO TID PRN 11/28/17 [History] Amoxicillin/Clavulanate K [Augmentin 500-125 MG] 1 tab PO Q8HR tablet 11/30/17 [Rx] Patient Handouts: Steps to Quit Smoking, [id number] Referrals: PCP,Unobtain [Primary Care Provider] - (in 3 days) - General Info Date of Service: 11/30/17 Admission Dx/Problem (Free Text: Admission Diagnosis/Problem Admission Diagnosis/Problem Shortness of breath Subjective Update: wants to go home considering in pt addiciton tx. ambulating on the corridor Functional Status: Reports: Pain Controlled - Review of Systems General: Denies: Fever, Weakness Pulmonary: Denies: Shortness of Breath Cardiovascular: Denies: Chest Pain Gastrointestinal: Denies: Abdominal Pain Neurological: Denies: Dizziness Psychiatric: Reports: Mood Lability, Anxiety. Denies: Confusion - Patient Data Vitals - Most Recent: Last Vital Signs Temp 36.4 C 11/30/17 10:55 Pulse 71 11/30/17 10:55 Resp 20 11/30/17 10:55 BP 92/70 11/30/17 10:55 Pulse Ox 96 11/30/17 10:55 Weight - Most Recent: 82.1 kg I&O - Last 24 hours: Intake & Output 11/29/17 11/30/17 11/30/17 22:59 06:59 14:59 Intake Total 740 Output Total 200 Balance 540 Lab Results - Last 24 hrs: Laboratory Results - last 24 hr 11/30/17 11/30/17 Range/Units 05:52 05:52 WBC 5.9 (5.0-10.0) 10^3/uL RBC 3.85 L (4.6-6.2) 10^6/uL Hgb 10.2 L (14.0-18.0) g/dL Hct 32.7 L (40.0-54.0) % MCV 84.9 (80-100) fL MCH 26.5 L (27.0-34.0) pg MCHC 31.2 L (33.0-35.0) g/dL Plt Count 158 (150-450) 10^3/uL Neut % (Auto) 59.8 (42.2-75.2) % Lymph % (Auto) 20.9 (20.5-50.1) % [place] % (Auto) 10.9 H (2-8) % Eos % (Auto) 7.4 H (1.0-3.0) % Baso % (Auto) 1.0 (0.0-1.0) % Sodium 136 (135-145) mmol/L Potassium 4.3 (3.6-5.0) mmol/L Chloride 106 (101-111) mmol/L Carbon Dioxide 23.0 (21.0-31.0) mmol/L Anion Gap 11.3 BUN 37 H (7-18) mg/dL Creatinine 1.2 (0.6-1.3) mg/dL Est Cr Clr Drug Dosing 73.65 mL/min Estimated GFR (MDRD) > 60 Glucose 101 (74-105) mg/dL Calcium 8.5 (8.4-10.2) mg/dl Total Bilirubin 2.2 H (0.2-1.0) mg/dL Direct Bilirubin 0.9 H (0.0-0.2) mg/dL Indirect Bilirubin 1.3 AST 50 H (10-42) IU/L ALT 17 (10-60) IU/L Alkaline Phosphatase 109 (42-121) IU/L Total Protein 6.8 (6.7-8.2) g/dl Albumin 3.0 L (3.2-5.5) g/dl Globulin 3.8 Albumin/Globulin Ratio 0.79 Med Orders - Current: Current Medications Acetaminophen (Tylenol) 650 mg PO Q4H PRN PRN Reason: Pain (Mild 1-3)/fever Al Hydroxide/Mg Hydroxide (Mag-Al Plus) 10 ml PO Q4H PRN PRN Reason: Indigestion Last Admin: 11/28/17 16:22 Dose: 10 ml Albuterol (Proventil Neb Soln) 2.5 mg NEB Q6HRRT PRN PRN Reason: Shortness of Breath Last Admin: 11/29/17 22:45 Dose: 2.5 mg Alprazolam (Xanax) 0.25 mg PO BID PRN PRN Reason: Anxiety Last Admin: 11/30/17 06:19 Dose: 0.25 mg Amoxicillin/Clavulanate Potassium (Augmentin 500 Mg\125 Mg) 1 tab PO Q8HR [facility] Last Admin: 11/30/17 06:12 Dose: 1 tab Carvedilol (Coreg) 6.25 mg PO BID [facility] Last Admin: 11/30/17 09:18 Dose: 6.25 mg Digoxin (Lanoxin) 250 mcg PO DAILY [facility] Last Admin: 11/30/17 09:17 Dose: 250 mcg Docusate Sodium (Colace) 100 mg PO BID PRN PRN Reason: Constipation Furosemide (Lasix) 40 mg PO BIDDIURETIC [facility] Last Admin: 11/30/17 09:19 Dose: 40 mg Guaifenesin (Robitussin) 100 mg PO Q6H PRN PRN Reason: Cough Last Admin: 11/29/17 23:55 Dose: 100 mg Heparin Sodium (Porcine) (Heparin Sodium) 5,000 units SUBCUT Q8HR [facility] Last Admin: 11/30/17 06:14 Dose: 5,000 units Ibuprofen (Motrin) 600 mg PO Q8H PRN PRN Reason: Pain Last Admin: 11/29/17 22:53 Dose: 600 mg Lisinopril (Prinivil) 2.5 mg PO DAILY [facility] Last Admin: 11/30/17 09:16 Dose: 2.5 mg Mometasone Furoate/Formoterol Fumar (Dulera 200-5 Mcg) 2 puff IH BIDRT [facility] Last Admin: 11/30/17 09:09 Dose: 2 puff Ondansetron HCl (Zofran) 4 mg IV Q6HR PRN PRN Reason: Nausea/Vomiting Last Admin: 11/30/17 01:36 Dose: 4 mg Pantoprazole Sodium (Protonix) 40 mg PO DAILY [facility] Last Admin: 11/30/17 09:19 Dose: 40 mg Potassium Chloride (Klor-Con 10) 40 meq PO BID [facility] Last Admin: 11/30/17 09:09 Dose: 40 meq Sodium Chloride (Saline Flush) 10 ml FLUSH ASDIRECTED PRN PRN Reason: Keep Vein Open Last Admin: 11/29/17 21:48 Dose: 10 ml Spironolactone (Aldactone) 25 mg PO DAILY [facility] Last Admin: 11/30/17 09:18 Dose: 25 mg Zolpidem Tartrate (Ambien) 5 mg PO BEDTIME PRN PRN Reason: Sleep Last Admin: 11/29/17 21:43 Dose: 5 mg Discontinued Medications Albuterol/Ipratropium (Duoneb 3.0-0.5 Mg/3 Ml) 3 ml NEB ONETIME ONE Stop: 11/28/17 06:23 Last Admin: 11/28/17 06:28 Dose: 3 ml Alprazolam (Xanax) 0.25 mg PO ONETIME ONE Stop: 11/30/17 11:07 Last Admin: 11/30/17 11:11 Dose: 0.25 mg Barium Sulfate (Readi-Cat 2) 225 ml PO ONETIME ONE Stop: 11/28/17 17:33 Last Admin: 11/28/17 17:51 Dose: 225 ml Barium Sulfate (Readi-Cat 2) 225 ml PO ONETIME ONE Stop: 11/28/17 18:31 Last Admin: 11/28/17 18:25 Dose: 225 ml Carvedilol (Coreg) 6.25 mg PO BID [facility] Last Admin: 11/28/17 14:06 Dose: Not Given Digoxin (Lanoxin) 250 mcg PO DAILY [facility] Last Admin: 11/28/17 14:05 Dose: Not Given Diphenhydramine HCl (Benadryl) 25 mg IVPUSH ONETIME ONE Stop: 11/28/17 04:45 Last Admin: 11/28/17 04:59 Dose: 25 mg Furosemide (Lasix) 40 mg IVPUSH NOW ONE Stop: 11/28/17 06:21 Last Admin: 11/28/17 06:28 Dose: 40 mg Iopamidol (Isovue-300 (61%)) 100 ml IVPUSH ONETIME ONE Stop: 11/28/17 17:32 Last Admin: 11/28/17 18:06 Dose: 100 ml Lorazepam (Ativan) 1 mg IVPUSH ONETIME ONE Stop: 11/28/17 05:43 Last Admin: 11/28/17 05:49 Dose: 1 mg Metoclopramide HCl (Reglan) 10 mg IVPUSH ONETIME ONE Stop: 11/28/17 06:03 Last Admin: 11/28/17 06:21 Dose: 10 mg Non-Formulary Medication (Melatonin/Pyridoxine Hcl (B6) [Melatonin 3 Mg Tablet] ) 3 mg PO BEDTIME PRN PRN Reason: for sleep Ondansetron HCl (Zofran) 4 mg IV Q4H PRN PRN Reason: Nausea/Vomiting Last Admin: 11/28/17 14:50 Dose: 4 mg Pantoprazole Sodium (Protonix) 40 mg PO DAILY [facility] Last Admin: 11/28/17 14:05 Dose: Not Given Spironolactone (Aldactone) 25 mg PO DAILY [facility] Last Admin: 11/28/17 14:04 Dose: Not Given - Exam General: Reports: Alert, Oriented Neck: Reports: Supple Lungs: Reports: Normal Respiratory Effort, Rhonchi Cardiovascular: Reports: Regular Rate, Regular Rhythm GI/Abdominal Exam: Normal Bowel Sounds, Soft, Non-Tender, Other (obese) Extremities: No Pedal Edema
--- NOTE | 2017-11-30 15:04 | PCM.PN ---
- General Info Date of Service: 11/30/17 Admission Dx/Problem (Free Text): Admission Diagnosis/Problem Admission Diagnosis/Problem Shortness of breath Subjective Update: wants to go home considering in pt addiciton tx. was seen by [facility], plan for eval tomorrow as out pt ambulating on the corridor Functional Status: Reports: Pain Controlled - Review of Systems General: Denies: Fever, Weakness Pulmonary: Denies: Shortness of Breath Cardiovascular: Denies: Chest Pain Gastrointestinal: Denies: Abdominal Pain Psychiatric: Reports: Anxiety - Patient Data Vitals - Most Recent: Last Vital Signs Temp 36.4 C 11/30/17 10:55 Pulse 71 11/30/17 10:55 Resp 20 11/30/17 10:55 BP 92/70 11/30/17 10:55 Pulse Ox 96 11/30/17 10:55 Weight - Most Recent: 82.1 kg I&O - Last 24 Hours: Intake & Output 11/30/17 11/30/17 11/30/17 06:59 14:59 22:59 Intake Total 270 Balance 270 Lab Results Last 24 Hours: Laboratory Results - last 24 hr 11/30/17 11/30/17 Range/Units 05:52 05:52 WBC 5.9 (5.0-10.0) 10^3/uL RBC 3.85 L (4.6-6.2) 10^6/uL Hgb 10.2 L (14.0-18.0) g/dL Hct 32.7 L (40.0-54.0) % MCV 84.9 (80-100) fL MCH 26.5 L (27.0-34.0) pg MCHC 31.2 L (33.0-35.0) g/dL Plt Count 158 (150-450) 10^3/uL Neut % (Auto) 59.8 (42.2-75.2) % Lymph % (Auto) 20.9 (20.5-50.1) % [place] % (Auto) 10.9 H (2-8) % Eos % (Auto) 7.4 H (1.0-3.0) % Baso % (Auto) 1.0 (0.0-1.0) % Sodium 136 (135-145) mmol/L Potassium 4.3 (3.6-5.0) mmol/L Chloride 106 (101-111) mmol/L Carbon Dioxide 23.0 (21.0-31.0) mmol/L Anion Gap 11.3 BUN 37 H (7-18) mg/dL Creatinine 1.2 (0.6-1.3) mg/dL Est Cr Clr Drug Dosing 73.65 mL/min Estimated GFR (MDRD) > 60 Glucose 101 (74-105) mg/dL Calcium 8.5 (8.4-10.2) mg/dl Total Bilirubin 2.2 H (0.2-1.0) mg/dL Direct Bilirubin 0.9 H (0.0-0.2) mg/dL Indirect Bilirubin 1.3 AST 50 H (10-42) IU/L ALT 17 (10-60) IU/L Alkaline Phosphatase 109 (42-121) IU/L Total Protein 6.8 (6.7-8.2) g/dl Albumin 3.0 L (3.2-5.5) g/dl Globulin 3.8 Albumin/Globulin Ratio 0.79 Med Orders - Current: Current Medications Acetaminophen (Tylenol) 650 mg PO Q4H PRN PRN Reason: Pain (Mild 1-3)/fever Al Hydroxide/Mg Hydroxide (Mag-Al Plus) 10 ml PO Q4H PRN PRN Reason: Indigestion Last Admin: 11/28/17 16:22 Dose: 10 ml Albuterol (Proventil Neb Soln) 2.5 mg NEB Q6HRRT PRN PRN Reason: Shortness of Breath Last Admin: 11/29/17 22:45 Dose: 2.5 mg Alprazolam (Xanax) 0.25 mg PO BID PRN PRN Reason: Anxiety Last Admin: 11/30/17 06:19 Dose: 0.25 mg Amoxicillin/Clavulanate Potassium (Augmentin 500 Mg\125 Mg) 1 tab PO Q8HR ANGELIQUE Last Admin: 11/30/17 06:12 Dose: 1 tab Carvedilol (Coreg) 6.25 mg PO BID [facility] Last Admin: 11/30/17 09:18 Dose: 6.25 mg Digoxin (Lanoxin) 250 mcg PO DAILY [facility] Last Admin: 11/30/17 09:17 Dose: 250 mcg Docusate Sodium (Colace) 100 mg PO BID PRN PRN Reason: Constipation Furosemide (Lasix) 40 mg PO BIDDIURETIC [facility] Last Admin: 11/30/17 09:19 Dose: 40 mg Guaifenesin (Robitussin) 100 mg PO Q6H PRN PRN Reason: Cough Last Admin: 11/29/17 23:55 Dose: 100 mg Heparin Sodium (Porcine) (Heparin Sodium) 5,000 units SUBCUT Q8HR [facility] Last Admin: 11/30/17 06:14 Dose: 5,000 units Ibuprofen (Motrin) 600 mg PO Q8H PRN PRN Reason: Pain Last Admin: 11/29/17 22:53 Dose: 600 mg Lisinopril (Prinivil) 2.5 mg PO DAILY [facility] Last Admin: 11/30/17 09:16 Dose: 2.5 mg Mometasone Furoate/Formoterol Fumar (Dulera 200-5 Mcg) 2 puff IH BIDRT [facility] Last Admin: 11/30/17 09:09 Dose: 2 puff Ondansetron HCl (Zofran) 4 mg IV Q6HR PRN PRN Reason: Nausea/Vomiting Last Admin: 11/30/17 01:36 Dose: 4 mg Pantoprazole Sodium (Protonix) 40 mg PO DAILY [facility] Last Admin: 11/30/17 09:19 Dose: 40 mg Potassium Chloride (Klor-Con 10) 40 meq PO BID [facility] Last Admin: 11/30/17 09:09 Dose: 40 meq Sodium Chloride (Saline Flush) 10 ml FLUSH ASDIRECTED PRN PRN Reason: Keep Vein Open Last Admin: 11/29/17 21:48 Dose: 10 ml Spironolactone (Aldactone) 25 mg PO DAILY [facility] Last Admin: 11/30/17 09:18 Dose: 25 mg Zolpidem Tartrate (Ambien) 5 mg PO BEDTIME PRN PRN Reason: Sleep Last Admin: 11/29/17 21:43 Dose: 5 mg Discontinued Medications Albuterol/Ipratropium (Duoneb 3.0-0.5 Mg/3 Ml) 3 ml NEB ONETIME ONE Stop: 11/28/17 06:23 Last Admin: 11/28/17 06:28 Dose: 3 ml Alprazolam (Xanax) 0.25 mg PO ONETIME ONE Stop: 11/30/17 11:07 Last Admin: 11/30/17 11:11 Dose: 0.25 mg Barium Sulfate (Readi-Cat 2) 225 ml PO ONETIME ONE Stop: 11/28/17 17:33 Last Admin: 11/28/17 17:51 Dose: 225 ml Barium Sulfate (Readi-Cat 2) 225 ml PO ONETIME ONE Stop: 11/28/17 18:31 Last Admin: 11/28/17 18:25 Dose: 225 ml Carvedilol (Coreg) 6.25 mg PO BID [facility] Last Admin: 11/28/17 14:06 Dose: Not Given Digoxin (Lanoxin) 250 mcg PO DAILY [facility] Last Admin: 11/28/17 14:05 Dose: Not Given Diphenhydramine HCl (Benadryl) 25 mg IVPUSH ONETIME ONE Stop: 11/28/17 04:45 Last Admin: 11/28/17 04:59 Dose: 25 mg Furosemide (Lasix) 40 mg IVPUSH NOW ONE Stop: 11/28/17 06:21 Last Admin: 11/28/17 06:28 Dose: 40 mg Iopamidol (Isovue-300 (61%)) 100 ml IVPUSH ONETIME ONE Stop: 11/28/17 17:32 Last Admin: 11/28/17 18:06 Dose: 100 ml Lorazepam (Ativan) 1 mg IVPUSH ONETIME ONE Stop: 11/28/17 05:43 Last Admin: 11/28/17 05:49 Dose: 1 mg Metoclopramide HCl (Reglan) 10 mg IVPUSH ONETIME ONE Stop: 11/28/17 06:03 Last Admin: 11/28/17 06:21 Dose: 10 mg Non-Formulary Medication (Melatonin/Pyridoxine Hcl (B6) [Melatonin 3 Mg Tablet] ) 3 mg PO BEDTIME PRN PRN Reason: for sleep Ondansetron HCl (Zofran) 4 mg IV Q4H PRN PRN Reason: Nausea/Vomiting Last Admin: 11/28/17 14:50 Dose: 4 mg Pantoprazole Sodium (Protonix) 40 mg PO DAILY [facility] Last Admin: 11/28/17 14:05 Dose: Not Given Spironolactone (Aldactone) 25 mg PO DAILY [facility] Last Admin: 11/28/17 14:04 Dose: Not Given - Exam General: Alert, Oriented Neck: Supple Lungs: Rhonchi (basilar) Cardiovascular: Regular Rhythm GI/Abdominal Exam: Normal Bowel Sounds, Soft, Non-Tender Extremities: No Pedal Edema - Problem List & Annotations (1) Acute bronchitis SNOMED Code(s): 18187332 Code(s): J20.9 - ACUTE BRONCHITIS, UNSPECIFIED Status: Acute Current Visit: Yes (2) Chronic systolic HF (heart failure) SNOMED Code(s): 317088185 Code(s): I50.22 - CHRONIC SYSTOLIC (CONGESTIVE) HEART FAILURE Status: Acute Current Visit: No - Problem List Review Problem List Initiated/Reviewed/Updated: Yes - My Orders Last 24 Hours: My Active Orders 11/29/17 23:37 guaiFENesin [Robitussin] 100 mg PO Q6H PRN 11/30/17 12:25 Ready for Discharge [RC] PER UNIT ROUTINE - Plan Plan:: The patient is a 52-year-old gentleman with a frequent presentation to the emergency room and hospital admissions. The patient has multiple chronic medical problems including severe systolic congestive heart failure and he also has frequent methamphetamine and other drug use. The patient presented with shortness of breath. On admisison the patient has no pneumonia, congestive heart failure on chest x-ray, We'll monitor the patient For the recently diagnosed bronchitis possible pneumonia we'll continue to treat with Augmentin Chronic systolic congestive heart failure Treat with diuretics including Lasix and spironolactone Treat with Coreg Follow electrolytes and replace them as needed abdominal pain and nausea resolved, tolerating diet CT showed no apparent acute finding liver cirrhosis, ascites, increased LFT is likley due to congestive changes COPD appears stable Will continue nebulizers and dulera anxiety, drug dependence called [facility] drug tx. center d/w [facility] - plan for out pt eval tomorrow 8 am DVT prophylaxis with subcutaneous heparin
[2017-11-30] MEDS: Albuterol 0.083% 2.5 MG/3 ML Neb Soln NEB PRN (21:29)
[2017-11-30] MEDS: Zolpidem 5 MG Tab PO PRN (22:03)
[2017-12-01] MEDS ORDERED: Ondansetron 4 MG Tab.DIS PO PRN (02:29)
[2017-12-01 03:06] VITALS: BP 110/64
== END 2017-12-01 05:02 | disposition home or self-care (01) ==
LOC: DL.ED 03:54 → DL.MS 09:16 → UNDOADMOB 09:16 → DL.MS 10:33
PROVIDERS: ADMIT Internal Medicine; ATTEND Internal Medicine
DX: J44.9 Chronic obstructive pulmonary disease, unspecified (principal); I11.0 Hypertensive heart disease with heart failure; I50.22 Chronic systolic (congestive) heart failure; K29.70 Gastritis, unspecified, without bleeding; K21.9 Gastro-esophageal reflux disease without esophagitis; K74.60 Unspecified cirrhosis of liver; M19.90 Unspecified osteoarthritis, unspecified site; F41.9 Anxiety disorder, unspecified; F32.9 Major depressive disorder, single episode, unspecified; F17.210 Nicotine dependence, cigarettes, uncomplicated; Z79.2 Long term (current) use of antibiotics; Z79.899 Other long term (current) drug therapy
CPT/HCPCS: 36415; 71045; 74177; 80048; 80053; 80076; 80305-QW; 81001; 83605; 83690; 83880; 84484; 85025; 93005; 94640; 96372; 96374; 96375; 96376; 99285; A9270-GY; G0378; G0480; J1200; J1644; J1940; J2060; J2405; J2765; J7050; J7613-GY; J7620-GY; Q9967

== ENCOUNTER 2018-03-21 12:17 | Emergency (ER) | payer MEDICARE ==
[2018-03-21] MEDS ORDERED: Albuterol 0.083% 2.5 MG/3 ML Neb Soln NEB ONE (13:19)
[2018-03-21] MEDS ORDERED: Sodium Chloride 0.9% 10 ML Syringe FLUSH PRN (13:49)
--- NOTE | 2018-03-21 13:50 | EDM.PDOC ---
ED HPI GENERAL MEDICAL PROBLEM - General Chief Complaint: General Stated Complaint: UNKNOWN Time Seen by Provider: 03/21/18 13:48 Source of Information: Reports: Patient History Limitations: Reports: No Limitations - History of Present Illness INITIAL COMMENTS - FREE TEXT/NARRATIVE: Patient comes emergency department today with shortness of breath and swelling on his ankles. This patient is well-known to the emergency department and seen on a regular basis in the ED and is none compliant. He does have a history of congestive heart failure as well as COPD. Over the past 2-3 days the patient has felt quite tired and short of breath and tightness in his chest. He has also noticed that he's had quite a bit of swelling on his ankles which is chronic for him. His SOB is the same as it has been for years. He has been taking his medication as prescribed. He has a congested cough that is nonproductive. He does complain of subjective fever and chills. No nausea no vomiting. No abdominal pain. No palpitations lightheadedness weakness dizziness or syncope. No diarrhea. Treatments STORE LEAD: Reports: Other (see below) Other Treatments STORE LEAD: nebulizer Abdomen Pain Score (Numeric/FACES): 7 - Related Data Allergies Allergy/AdvReac Type Severity Reaction Status Date / Time No Known Allergies Allergy Verified 03/21/18 13:52 Home Meds: Home Meds Carvedilol 6.25 mg PO BID 60 Days tablet 12/21/17 [Rx] Digoxin 0.25 mg PO DAILY #30 tablet 12/21/17 [Rx] Fluticasone/Salmeterol [Advair 250-50 Diskus] 1 puff INH Q12H #1 disk.w.dev [Rx] Furosemide [Lasix] 60 mg PO BID #60 tablet 12/21/17 [Rx] Lisinopril 2.5 mg PO DAILY #30 tablet 12/21/17 [Rx] Pantoprazole Sodium [Protonix] 40 mg PO DAILY #30 tablet.dr 12/21/17 [Rx] Potassium Chloride 40 meq PO BID 60 Days tablet.er 12/21/17 [Rx] Spironolactone [Aldactone] 25 mg PO DAILY #30 tablet 12/21/17 [Rx] Benzonatate [Tessalon Perle] 100 mg PO TID PRN 01/29/18 [History] FLUoxetine [PROzac] 20 mg PO DAILY 01/29/18 [History] ALPRAZolam [Alprazolam] 0.25 mg PO BID 02/13/18 [History] Melatonin 1 tab PO DAILY 02/21/18 [History] Albuterol [Ventolin HFA] 1 puff INH Q6HR PRN 03/07/18 [History] Calcium Carbonate [Tums] 500 mg PO TID PRN 03/07/18 [History] Docusate Sodium [Colace] 100 mg PO DAILY PRN cap 03/08/18 [Rx] Past Medical History - Past Health History Medical/Surgical History: Denies Medical/Surgical History HEENT History: Reports: None Cardiovascular History: Reports: Blood Clots/VTE/DVT, Cardiomyopathy, Heart Failure, Hypertension, SOB on Exertion Respiratory History: Reports: SOB Gastrointestinal History: Reports: Cirrhosis, Gastritis, GERD Genitourinary History: Reports: Other (See Below) Other Genitourinary History: liver issues r/t ETOH Musculoskeletal History: Reports: Arthritis, Other (See Below) Other Musculoskeletal History: torn left and right upper arm tendon. missed surgery 03/2017 Neurological History: Reports: None Psychiatric History: Reports: Addiction, Anxiety, Depression, Panic Attack Other Psychiatric History: addiction treatment January 2018 Endocrine/Metabolic History: Reports: None Hematologic History: Reports: None Immunologic History: Reports: None Oncologic (Cancer) History: Reports: None Dermatologic History: Reports: None - Infectious Disease History Infectious Disease History: Reports: None - Past Surgical History Head Surgeries/Procedures: Reports: None Cardiovascular Surgical History: Reports: AICD, Percutaneous Transluminal Angioplasty Respiratory Surgical History: Reports: None GI Surgical History: Reports: None Male Surgical History: Reports: None Neurological Surgical History: Reports: None Musculoskeletal Surgical History: Reports: None Social & Family History - Family History Family Medical History: Unobtainable Cardiac: Reports: Hypertension Other Cardiac Family History: Dad and paternal grandmother have hypertension. Respiratory: Reports: Asthma Other Respiratory Family Hisory: Mom and dad have asthma. Endocrine/Metabolic: Reports: Diabetes, Type I Other Endocrine/Metabolic Family History: Dad and paternal grandmother have type I diabetes. - Tobacco Use Smoking Status *Q: Current Every Day Smoker Years of Tobacco use: 11 Packs/Tins Daily: 0.5 - Caffeine Use Caffeine Use: Reports: Coffee, Soda Other Caffeine Use: 12. cups/day - Alcohol Use Days Per Week of Alcohol Use: 2 Number of Drinks Per Day: 12 Total Drinks Per Week: 24 - Recreational Drug Use Recreational Drug Use: No - Living Situation & Occupation Living situation: Reports: Alone Occupation: Unemployed ED ROS GENERAL - Review of Systems Review Of Systems: ROS reveals no pertinent complaints other than HPI. ED EXAM, GENERAL - Physical Exam Exam: See Below Free Text/Narrative:: Patient complains of severe agitation although he is sleeping when I enter the room. He is in no acute distress and appears very comfortable. He alerts easily when I enter the room. Exam Limited By: No Limitations General Appearance: Alert, WD/WN, No Apparent Distress Eye Exam: Bilateral Eye: EOMI Ears: Normal External Exam, Normal TMs Nose: Normal Inspection Throat/Mouth: Normal Inspection, Normal Lips, Normal Oropharynx Head: Atraumatic, Normocephalic Neck: Normal Inspection, Supple, Non-Tender Respiratory/Chest: No Respiratory Distress, No Accessory Muscle Use, Decreased Breath Sounds (Throughout), Crackles (Bilaterally more on the left than the right). No: Chest Non-Tender, Respiratory Distress, Wheezing, Stridor, Retractions Cardiovascular: Normal Peripheral Pulses, Regular Rate, Rhythm Peripheral Pulses: 2+: Posterior Tibial (L), Posterior Tibial (R), Dorsalis Pedis (L), Dorsalis Pedis (R) GI/Abdominal: Normal Bowel Sounds, Soft, Non-Tender (Male) Exam: Deferred Rectal (Males) Exam: Deferred Back Exam: Normal Inspection, Full Range of Motion Extremities: Normal Capillary Refill, Pedal Edema (2+ bilaterally). No: Normal Inspection Neurological: Alert, Oriented, CN II-XII Intact, Normal Cognition, No Motor/ Sensory Deficits Psychiatric: Normal Affect, Normal Mood Skin Exam: Warm, Dry, Intact, Normal Color Lymphatic: No Adenopathy EKG INTERPRETATION EKG Date: 03/21/18 Time: 13:50 Rhythm: Other (paced rhythm) Rate (Beats/Min): 51 P-Wave: Present QRS: Wide ST-T: Normal QT: Normal Comparison: No Change Course - Vital Signs Last Recorded V/S: Last Vital Signs Temp 36.4 C 03/21/18 15:17 Pulse 109 H 03/21/18 15:17 Resp 20 01/13/19 15:17 BP 115/87 03/21/18 15:17 Pulse Ox 100 03/21/18 15:17 - Orders/Labs/Meds Orders: Active Orders 24 hr Category Date Time Status EKG 12 Lead [EKG Documentation Completion] [RC] URGENT Care 03/21/18 13:49 Active Peripheral IV Care [RC] . DIRECTED Care 03/21/18 13:50 Active RT Aerosol Therapy [RC] ASDIRECTED Care 03/21/18 13:19 Active Peripheral IV Insertion Adult [OM.PC] Stat Oth 03/21/18 13:49 Ordered Labs: Laboratory Tests 03/21/18 03/21/18 03/21/18 Range/Units 13:57 13:57 13:57 WBC 4.4 L (5.0-10.0) 10^3/uL RBC 4.50 L (4.6-6.2) 10^6/uL Hgb 11.1 L (14.0-18.0) g/dL Hct 34.7 L (40.0-54.0) % MCV 77.1 L (80-100) fL MCH 24.7 L (27.0-34.0) pg MCHC 32.0 L (33.0-35.0) g/dL Plt Count 186 (150-450) 10^3/uL Neut % (Auto) 66.9 (42.2-75.2) % Lymph % (Auto) 20.2 L (20.5-50.1) % [place] % (Auto) 9.5 H (2-8) % Eos % (Auto) 1.6 (1.0-3.0) % Baso % (Auto) 1.8 H (0.0-1.0) % Sodium 135 (135-145) mmol/L Potassium 3.7 (3.6-5.0) mmol/L Chloride 102 (101-111) mmol/L Carbon Dioxide 22.0 (21.0-31.0) mmol/L Anion Gap 14.7 BUN 12 (7-18) mg/dL Creatinine 0.8 (0.6-1.3) mg/dL Est Cr Clr Drug Dosing 109.24 mL/min Estimated GFR (MDRD) > 60 BUN/Creatinine Ratio 15.00 Glucose 103 (74-105) mg/dL Lactic Acid 2.7 H (0.5-2.2) mmol/L Calcium 9.0 (8.4-10.2) mg/dl Total Bilirubin 3.6 H (0.2-1.0) mg/dL AST 36 (10-42) IU/L ALT 16 (10-60) IU/L Alkaline Phosphatase 86 (42-121) IU/L Troponin I 0.03 H* (0.00-0.02) ng/ml C-Reactive Protein (0.0-1.3) mg/dL B-Natriuretic Peptide 2870 H (0-100) pg/ml Total Protein 7.3 (6.7-8.2) g/dl Albumin 3.3 (3.2-5.5) g/dl Globulin 4.0 Albumin/Globulin Ratio 0.83 03/21/18 Range/Units 13:57 WBC (5.0-10.0) 10^3/uL RBC (4.6-6.2) 10^6/uL Hgb (14.0-18.0) g/dL Hct (40.0-54.0) % MCV (80-100) fL MCH (27.0-34.0) pg MCHC (33.0-35.0) g/dL Plt Count (150-450) 10^3/uL Neut % (Auto) (42.2-75.2) % Lymph % (Auto) (20.5-50.1) % [place] % (Auto) (2-8) % Eos % (Auto) (1.0-3.0) % Baso % (Auto) (0.0-1.0) % Sodium (135-145) mmol/L Potassium (3.6-5.0) mmol/L Chloride (101-111) mmol/L Carbon Dioxide (21.0-31.0) mmol/L Anion Gap BUN (7-18) mg/dL Creatinine (0.6-1.3) mg/dL Est Cr Clr Drug Dosing mL/min Estimated GFR (MDRD) BUN/Creatinine Ratio Glucose (74-105) mg/dL Lactic Acid (0.5-2.2) mmol/L Calcium (8.4-10.2) mg/dl Total Bilirubin (0.2-1.0) mg/dL AST (10-42) IU/L ALT (10-60) IU/L Alkaline Phosphatase (42-121) IU/L Troponin I (0.00-0.02) ng/ml C-Reactive Protein 1.6 H (0.0-1.3) mg/dL B-Natriuretic Peptide (0-100) pg/ml Total Protein (6.7-8.2) g/dl Albumin (3.2-5.5) g/dl Globulin Albumin/Globulin Ratio Meds: Medications Discontinued Medications Generic Name Dose Route Start Last Admin Trade Name Freq PRN Reason Stop Dose Admin Al Hydroxide/Mg Hydroxide 30 ml 03/21/18 15:03 03/21/18 15:16 Gi Cocktail PO 03/21/18 15:04 30 ml ONETIME ONE Administration Albuterol 2.5 mg 03/21/18 13:19 03/21/18 13:33 Proventil Neb Soln NEB 03/21/18 13:20 2.5 mg ONETIME ONE Administration Sodium Chloride 10 ml 03/21/18 13:49 Saline Flush FLUSH ASDIRECTED PRN Keep Vein Open - Radiology Interpretation Free Text/Narrative:: CXR per radiology No acute infiltrates. - Re-Assessments/Exams Free Text/Narrative Re-Assessment/Exam: 03/22/18 07:49 The patient's proBNP is actually better than his baseline. EKG and chest x-ray is unremarkable. His troponin is 0.03 but this is what it is typically for him. As he feels no worse than he typically does and his laboratory evaluation is at baseline for him we will discharge him home. Departure - Departure Time of Disposition: 15:03 Disposition: Home, Self-Care 01 Clinical Impression: Chronic CHF Qualifiers: Heart failure type: unspecified Qualified Code(s): I50.9 - Heart failure, unspecified COPD (chronic obstructive pulmonary disease) Qualifiers: COPD type: unspecified COPD Qualified Code(s): J44.9 - Chronic obstructive pulmonary disease, unspecified - Discharge Information Instructions: Chronic Obstructive Pulmonary Disease Exacerbation, [id number] , Heart Failure, [id number] Forms: ED Department Discharge Additional Instructions: Continue previous therapies. Return to the ED if new or worsening Follow up with primary care on thursday. - My Orders Last 24 Hours: My Active Orders 03/21/18 13:19 RT Aerosol Therapy [RC] ASDIRECTED 03/21/18 13:49 EKG 12 Lead [EKG Documentation Completion] [RC] URGENT Peripheral IV Insertion Adult [OM.PC] Stat 03/21/18 13:50 Peripheral IV Care [RC] . DIRECTED - Assessment/Plan Last 24 Hours: My Active Orders 03/21/18 13:19 RT Aerosol Therapy [RC] ASDIRECTED 03/21/18 13:49 EKG 12 Lead [EKG Documentation Completion] [RC] URGENT Peripheral IV Insertion Adult [OM.PC] Stat 03/21/18 13:50 Peripheral IV Care [RC] . DIRECTED Assessment:: Chronic CHF COPD Plan: Continue previous therapies. Return to the ED if new or worsening Follow up with primary care on thursday.
[2018-03-21 14:29] LABS: ANION GAP 14.7; CHLORIDE,CL 102 mmol/L (101-111); SODIUM,NA 135 mmol/L (135-145)
[2018-03-21] MEDS ORDERED: GI Cocktail Oral Solution 30 ML PO ONE (15:03)
[2018-03-21 15:18] VITALS: BP 115/87
== END 2018-03-21 15:23 | disposition home or self-care (01) ==
LOC: DL.ED 12:17
DX: I11.0 Hypertensive heart disease with heart failure (principal); I50.9 Heart failure, unspecified; J44.9 Chronic obstructive pulmonary disease, unspecified; F17.210 Nicotine dependence, cigarettes, uncomplicated; Z79.899 Other long term (current) drug therapy
CPT/HCPCS: 36415; 71046; 80053; 83605; 83880; 84484; 85025; 86140; 87804; 93005; 99285; A9270; J7613-GY

== ENCOUNTER 2018-03-21 17:35 | Emergency (ER) | payer MEDICARE | END 2018-03-21 19:18 | disposition left against medical advice (07) | LOC: DL.ED 17:35 | DX: Z53.21 Procedure and treatment not carried out due to patient leaving prior to being seen by health care provider (principal) ==

== ENCOUNTER 2018-03-27 10:03 | Emergency (ER) | payer MEDICARE ==
[2018-03-27 10:01] VITALS: BP 113/89
--- NOTE | 2018-03-27 10:11 | EDM.PDOC ---
ED HPI GENERAL MEDICAL PROBLEM - General Chief Complaint: Abdominal Pain Stated Complaint: [facility] Time Seen by Provider: 03/27/18 10:09 Source of Information: Reports: Patient, EMS, EMS Notes Reviewed, RN, RN Notes Reviewed History Limitations: Reports: No Limitations - History of Present Illness INITIAL COMMENTS - FREE TEXT/NARRATIVE: Patient presents to ER per [facility] with shortness of breath and stomach pain beginning about 2 days ago. States he has been vomiting blood as well as bloody stools x2 days. States he has been talking his medications. He has weakness, nausea, vomiting, diarrhea, shortness of breath, chest tightness, fever, chills, unable to sleep and decreased appetite. Onset: Gradual Duration: Constant Location: Reports: Chest, Abdomen Quality: Reports: Ache Severity: Moderate Improves with: Reports: None Worsens with: Reports: None Associated Symptoms: Reports: No Other Symptoms Epigastric Pain Score (Numeric/FACES): 7 - Related Data Allergies Allergy/AdvReac Type Severity Reaction Status Date / Time No Known Allergies Allergy Verified 03/27/18 10:05 Home Meds: Home Meds Carvedilol 6.25 mg PO BID 60 Days tablet 12/21/17 [Rx] Digoxin 0.25 mg PO DAILY #30 tablet 12/21/17 [Rx] Fluticasone/Salmeterol [Advair 250-50 Diskus] 1 puff INH Q12H #1 disk.w.dev [Rx] Furosemide [Lasix] 60 mg PO BID #60 tablet 12/21/17 [Rx] Lisinopril 2.5 mg PO DAILY #30 tablet 12/21/17 [Rx] Pantoprazole Sodium [Protonix] 40 mg PO DAILY #30 tablet.dr 12/21/17 [Rx] Potassium Chloride 40 meq PO BID 60 Days tablet.er 12/21/17 [Rx] Spironolactone [Aldactone] 25 mg PO DAILY #30 tablet 12/21/17 [Rx] Benzonatate [Tessalon Perle] 100 mg PO TID PRN 01/29/18 [History] FLUoxetine [PROzac] 20 mg PO DAILY 01/29/18 [History] ALPRAZolam [Alprazolam] 0.25 mg PO BID 02/13/18 [History] Melatonin 1 tab PO DAILY 02/21/18 [History] Albuterol [Ventolin HFA] 1 puff INH Q6HR PRN 03/07/18 [History] Calcium Carbonate [Tums] 500 mg PO TID PRN 03/07/18 [History] Docusate Sodium [Colace] 100 mg PO DAILY PRN cap 03/08/18 [Rx] Past Medical History - Past Health History Medical/Surgical History: Denies Medical/Surgical History HEENT History: Reports: None Cardiovascular History: Reports: Blood Clots/VTE/DVT, Cardiomyopathy, Heart Failure, Hypertension, SOB on Exertion Respiratory History: Reports: SOB Gastrointestinal History: Reports: Cirrhosis, Gastritis, GERD Genitourinary History: Reports: Other (See Below) Other Genitourinary History: liver issues r/t ETOH Musculoskeletal History: Reports: Arthritis, Other (See Below) Other Musculoskeletal History: torn left and right upper arm tendon. missed surgery 03/2017 Neurological History: Reports: None Psychiatric History: Reports: Addiction, Anxiety, Depression, Panic Attack Other Psychiatric History: addiction treatment January 2018 Endocrine/Metabolic History: Reports: None Hematologic History: Reports: None Immunologic History: Reports: None Oncologic (Cancer) History: Reports: None Dermatologic History: Reports: None - Infectious Disease History Infectious Disease History: Reports: None - Past Surgical History Head Surgeries/Procedures: Reports: None Cardiovascular Surgical History: Reports: AICD, Percutaneous Transluminal Angioplasty Respiratory Surgical History: Reports: None GI Surgical History: Reports: None Male Surgical History: Reports: None Neurological Surgical History: Reports: None Musculoskeletal Surgical History: Reports: None Social & Family History - Family History Family Medical History: Unobtainable Cardiac: Reports: Hypertension Other Cardiac Family History: Dad and paternal grandmother have hypertension. Respiratory: Reports: Asthma Other Respiratory Family Hisory: Mom and dad have asthma. Endocrine/Metabolic: Reports: Diabetes, Type I Other Endocrine/Metabolic Family History: Dad and paternal grandmother have type I diabetes. - Tobacco Use Smoking Status *Q: Current Every Day Smoker Years of Tobacco use: 11 Packs/Tins Daily: 0.5 - Caffeine Use Caffeine Use: Reports: Coffee, Soda Other Caffeine Use: 12. cups/day - Recreational Drug Use Recreational Drug Use: Yes Drug Use in Last 12 Months: Yes Recreational Drug Type: Reports: Marijuana/Hashish, Methamphetamine, Oxycodone Other Recreational Drug Type: last used 1 week ago Recreational Drug Use Frequency: Binges - Living Situation & Occupation Living situation: Reports: Alone Occupation: Unemployed ED ROS GENERAL - Review of Systems Review Of Systems: ROS reveals no pertinent complaints other than HPI. ED EXAM, GENERAL - Physical Exam Exam: See Below Exam Limited By: No Limitations General Appearance: Alert Eye Exam: Bilateral Eye: EOMI, Normal Inspection, PERRL Ears: Normal External Exam, Normal Canal, Hearing Grossly Normal, Normal TMs Nose: Normal Inspection, Normal Mucosa, No Blood Throat/Mouth: Normal Inspection, Normal Lips, Normal Teeth, Normal Gums, Normal Oropharynx, Normal Voice, No Airway Compromise Head: Other (facial edema) Neck: Normal Inspection, Supple, Non-Tender, Full Range of Motion Respiratory/Chest: Rhonchi, Wheezing Cardiovascular: Other (murmur) GI/Abdominal: Other (diffuse tenderness) (Male) Exam: Deferred Rectal (Males) Exam: Deferred, Other (negative hemoccult) Back Exam: Normal Inspection, Full Range of Motion, NT Extremities: Normal Inspection, Normal Range of Motion, Non-Tender, Normal Capillary Refill, No Pedal Edema Neurological: Alert, Oriented, CN II-XII Intact, Normal Cognition, Normal Gait, Normal Reflexes, No Motor/Sensory Deficits Psychiatric: Normal Affect, Normal Mood Skin Exam: Warm, Dry, Intact, Normal Color, No Rash Lymphatic: No Adenopathy EKG INTERPRETATION EKG Date: 03/27/18 Time: 10:01 Rhythm: Other (AV paced) Comparison: No Change Course - Vital Signs Last Recorded V/S: Last Vital Signs Temp 98.0 F 03/27/18 09:55 Pulse 100 03/27/18 13:44 Resp 15 03/27/18 13:44 BP 113/89 03/27/18 09:55 Pulse Ox 100 03/27/18 13:44 - Orders/Labs/Meds Orders: Active Orders 24 hr Category Date Time Status EKG Documentation Completion [RC] STAT Care 03/27/18 10:07 Active Chest 1V Frontal [CR] Stat Exams 03/27/18 10:07 Taken Labs: Laboratory Tests 03/27/18 03/27/18 03/27/18 Range/Units 10:11 10:11 10:16 WBC 4.6 L (5.0-10.0) 10^3/uL RBC 4.42 L (4.6-6.2) 10^6/uL Hgb 10.9 L (14.0-18.0) g/dL Hct 34.1 L (40.0-54.0) % MCV 77.1 L (80-100) fL MCH 24.7 L (27.0-34.0) pg MCHC 32.0 L (33.0-35.0) g/dL Plt Count 162 (150-450) 10^3/uL Neut % (Auto) 70.5 (42.2-75.2) % Lymph % (Auto) 17.6 L (20.5-50.1) % [place] % (Auto) 7.8 (2-8) % Eos % (Auto) 3.0 (1.0-3.0) % Baso % (Auto) 1.1 H (0.0-1.0) % Sodium (135-145) mmol/L Potassium (3.6-5.0) mmol/L Chloride (101-111) mmol/L Carbon Dioxide (21.0-31.0) mmol/L Anion Gap BUN (7-18) mg/dL Creatinine (0.6-1.3) mg/dL Est Cr Clr Drug Dosing mL/min Estimated GFR (MDRD) BUN/Creatinine Ratio Glucose (74-105) mg/dL Calcium (8.4-10.2) mg/dl Total Bilirubin (0.2-1.0) mg/dL AST (10-42) IU/L ALT (10-60) IU/L Alkaline Phosphatase (42-121) IU/L Troponin I (0.00-0.02) ng/ml B-Natriuretic Peptide (0-100) pg/ml Total Protein (6.7-8.2) g/dl Albumin (3.2-5.5) g/dl Globulin Albumin/Globulin Ratio Amylase (28-100) U/L Lipase (22-51) U/L Urine Color Yellow (YELLOW) Urine Appearance Clear (CLEAR) Urine pH 6.0 (5.0-9.0) Ur Specific [place] 1.020 (1.005-1.030) Urine Protein 100 H (NEGATIVE) Urine Glucose (UA) Negative (NEGATIVE) Urine Ketones Trace H (NEGATIVE) Urine Occult Blood Trace-intact H (NEGATIVE) Urine Nitrite Negative (NEGATIVE) Urine Bilirubin Small H (NEGATIVE) Urine Urobilinogen 2.0 H (0.2-1.0) mg/dL Ur Leukocyte Esterase Negative (NEGATIVE) Urine RBC 0-5 /HPF Urine WBC 0-5 (0-5/HPF) /HPF Ur Epithelial Cells Occasional /HPF Urine Bacteria Occasional (0-FEW/HPF) /HPF Urine Mucus Occasional /LPF Urine Opiates Screen Positive H (NEGATIVE) Ur Oxycodone Screen Positive H (NEGATIVE) Urine Methadone Screen Negative (NEGATIVE) Ur Barbiturates Screen Negative (NEGATIVE) U Tricyclic Antidepress Negative (NEGATIVE) Ur Phencyclidine Scrn Negative (NEGATIVE) Ur Amphetamine Screen Negative (NEGATIVE) U Methamphetamines Scrn Negative (NEGATIVE) Urine MDMA Screen Negative (NEGATIVE) U Benzodiazepines Scrn Negative (NEGATIVE) Urine Cocaine Screen Negative (NEGATIVE) U Marijuana (THC) Screen Negative (NEGATIVE) Ethyl Alcohol mg/dL 03/27/18 03/27/18 Range/Units 10:16 10:16 WBC (5.0-10.0) 10^3/uL RBC (4.6-6.2) 10^6/uL Hgb (14.0-18.0) g/dL Hct (40.0-54.0) % MCV (80-100) fL MCH (27.0-34.0) pg MCHC (33.0-35.0) g/dL Plt Count (150-450) 10^3/uL Neut % (Auto) (42.2-75.2) % Lymph % (Auto) (20.5-50.1) % [place] % (Auto) (2-8) % Eos % (Auto) (1.0-3.0) % Baso % (Auto) (0.0-1.0) % Sodium 135 (135-145) mmol/L Potassium 3.0 L (3.6-5.0) mmol/L Chloride 101 (101-111) mmol/L Carbon Dioxide 23.0 (21.0-31.0) mmol/L Anion Gap 14.0 BUN 15 (7-18) mg/dL Creatinine 0.8 (0.6-1.3) mg/dL Est Cr Clr Drug Dosing 109.24 mL/min Estimated GFR (MDRD) > 60 BUN/Creatinine Ratio 18.75 Glucose 105 (74-105) mg/dL Calcium 8.4 (8.4-10.2) mg/dl Total Bilirubin 3.0 H (0.2-1.0) mg/dL AST 36 (10-42) IU/L ALT 17 (10-60) IU/L Alkaline Phosphatase 108 (42-121) IU/L Troponin I 0.04 H* (0.00-0.02) ng/ml B-Natriuretic Peptide 1850 H (0-100) pg/ml Total Protein 7.1 (6.7-8.2) g/dl Albumin 3.3 (3.2-5.5) g/dl Globulin 3.8 Albumin/Globulin Ratio 0.87 Amylase 65 (28-100) U/L Lipase 40 (22-51) U/L Urine Color (YELLOW) Urine Appearance (CLEAR) Urine pH (5.0-9.0) Ur Specific [place] (1.005-1.030) Urine Protein (NEGATIVE) Urine Glucose (UA) (NEGATIVE) Urine Ketones (NEGATIVE) Urine Occult Blood (NEGATIVE) Urine Nitrite (NEGATIVE) Urine Bilirubin (NEGATIVE) Urine Urobilinogen (0.2-1.0) mg/dL Ur Leukocyte Esterase (NEGATIVE) Urine RBC /HPF Urine WBC (0-5/HPF) /HPF Ur Epithelial Cells /HPF Urine Bacteria (0-FEW/HPF) /HPF Urine Mucus /LPF Urine Opiates Screen (NEGATIVE) Ur Oxycodone Screen (NEGATIVE) Urine Methadone Screen (NEGATIVE) Ur Barbiturates Screen (NEGATIVE) U Tricyclic Antidepress (NEGATIVE) Ur Phencyclidine Scrn (NEGATIVE) Ur Amphetamine Screen (NEGATIVE) U Methamphetamines Scrn (NEGATIVE) Urine MDMA Screen (NEGATIVE) U Benzodiazepines Scrn (NEGATIVE) Urine Cocaine Screen (NEGATIVE) U Marijuana (THC) Screen (NEGATIVE) Ethyl Alcohol < 5 mg/dL Meds: Medications Discontinued Medications Generic Name Dose Route Start Last Admin Trade Name Freq PRN Reason Stop Dose Admin Iopamidol 100 ml 03/27/18 11:15 03/27/18 11:39 Isovue-300 (61%) IVPUSH 03/27/18 11:16 75 ml ONETIME ONE Administration Lorazepam 1 mg 03/27/18 12:06 03/27/18 12:33 Ativan IVPUSH 03/27/18 12:07 1 mg ONETIME ONE Administration Ondansetron HCl 4 mg 03/27/18 12:06 03/27/18 12:33 Zofran IV 03/27/18 12:07 4 mg ONETIME ONE Administration - Radiology Interpretation Free Text/Narrative:: Chest xray: FINDINGS: Tubes, catheters and devices: Biventricular AICD placement is stable. Coronary sinus lead is not visualized throughout its course, which may be related to underpenetration of the chest versus interval revision. Lungs: Interstitial markings are diffusely mildly increased. No consolidation. Pleural space: Unremarkable. No pleural effusion. No pneumothorax. Heart/Mediastinum: The heart is enlarged, which is unchanged. Bones/joints: Unremarkable. IMPRESSION: Stable cardiomegaly and mild interstitial edema. Thank you for allowing us to participate in the care of your patient. Dictated and Authenticated by: Eden Kulkarni MD See rad report. - Re-Assessments/Exams Free Text/Narrative Re-Assessment/Exam: 03/27/18 14:16 Discussed patient case with Dr. Andrade. He states the patient can be kept in [place] to be cared for. He also states that if Dr. Amaya declines the patient he will admit the patient in [place]. Dr. Amaya declined the patient for admit. Patient will be transferred to [facility] by ambulance. Departure - Departure Time of Disposition: 14:17 Disposition: DC/Tfer to Acute Hospital 02 Condition: Fair Clinical Impression: Chronic systolic (congestive) heart failure, Anxiety about health, Noncompliance with medication regimen, Polysubstance dependence including opioid type drug with complication, episodic abuse Cholelithiasis Qualifiers: Cholelithiasis location: gallbladder Cholecystitis presence: without cholecystitis Biliary obstruction: without biliary obstruction Qualified Code(s) : K80.20 - Calculus of gallbladder without cholecystitis without obstruction Ascites Qualifiers: Ascites type: other type Qualified Code(s): R18.8 - Other ascites - Discharge Information Forms: ED Department Discharge - My Orders Last 24 Hours: My Active Orders 03/27/18 10:07 EKG Documentation Completion [RC] STAT Chest 1V Frontal [CR] Stat - Assessment/Plan Last 24 Hours: My Active Orders 03/27/18 10:07 EKG Documentation Completion [RC] STAT Chest 1V Frontal [CR] Stat
[2018-03-27 10:42] LABS: CHLORIDE,CL 101 mmol/L (101-111); SODIUM,NA 135 mmol/L (135-145)
[2018-03-27] MEDS ORDERED: Iopamidol 612 MG/ML 100 ML Bottle IVPUSH ONE (11:15)
[2018-03-27] MEDS ORDERED: Ondansetron 4 MG/2 ML SDV IV ONE (12:06)
[2018-03-27] MEDS ORDERED: LORazepam 2 MG/ML Syringe IVPUSH ONE (12:06)
--- NOTE | 2018-03-27 12:12 | CT ---
Clinical history: 53-year-old 175 pound hypertensive male smoker with normal WBC (4600) and although BNP is 1850 this is a significant "decrease" since previous admissions. Patient now complaining ER of abdominal pain and "bloody" vomiting/diarrhea. Scan technique: Volume acquisition of data emergency CT scan abdomen and pelvis obtained without oral contrast but during/after intravenous infusion 75 cc nonionic Isovue contrast (2.5 cc/s via injector) while patient was lying supine on the Siemens multi slice scanner [place], [place]. All data archived in the PACS system for storage, reformatting axial/sagittal/coronal planes and study. Interpretation: Abnormal. 1. *Diffuse subcutaneous edema of the body corpus (anasarca) and free intraperitoneal ascitic fluid accumulation. 2. Chronic pronounced enlargement of the cardiac silhouette; cardiac pacemaker; external manager cardiac leads; no pericardial effusion or dependent pleural effusions. 3. Lung bases clear. No infiltrates or atelectasis. 4. Diseased gallbladder i.e. distended with faintly calcified dependent intraluminal gallstones. 5. Liver, stomach, spleen, pancreas and adrenal glands unremarkable. Symmetric normal reniform size, axis and configuration. No sign of cystic or solid renal cortical mass lesion, nephrolithiasis or obstructive uropathy i.e. no pyelocaliectasis or ureterectasis. Empty midline urinary bladder, prostate gland and symmetric seminal vesicles unremarkable. 6. Right colon surgery (sutures) but no pelvic or abdominal mass lesion, mesenteric or retroperitoneal lymphadenopathy, signs of mechanical bowel obstruction or free intraperitoneal air. Normal caliber aortoiliac vessels. No diverticulitis. 7. Chronic severe multilevel lower lumbar disc disease with reactive arthritic changes of the spine. No fracture or dislocation.
== END 2018-03-27 14:27 ==
LOC: DL.ED 10:03
DX: K80.20 Calculus of gallbladder without cholecystitis without obstruction (principal); I50.22 Chronic systolic (congestive) heart failure; R18.8 Other ascites; F41.9 Anxiety disorder, unspecified; F11.29 Opioid dependence with unspecified opioid-induced disorder; F32.9 Major depressive disorder, single episode, unspecified; F17.210 Nicotine dependence, cigarettes, uncomplicated; Z79.899 Other long term (current) drug therapy; Z91.14 Patient's other noncompliance with medication regimen
CPT/HCPCS: 36415; 71045; 74177; 80053; 80305; 81001; 82150; 82272; 83690; 83880; 84484; 85025; 93005; 96374; 96375; 99285; G0480; J2060; J2405; Q9967

== ENCOUNTER 2018-04-05 08:58 | Emergency (ER) | payer MEDICARE ==
[2018-04-05 09:10] VITALS: BP 111/93
[2018-04-05 09:38] LABS: ANION GAP 13.6; CHLORIDE,CL 98 mmol/L (101-111); SODIUM,NA 132 mmol/L (135-145)
[2018-04-05] MEDS ORDERED: Furosemide 40 MG Tab PO ONE (09:52)
--- NOTE | 2018-04-05 09:52 | EDM.PDOC ---
ED HPI GENERAL MEDICAL PROBLEM - General Chief Complaint: Cardiovascular Problem Stated Complaint: AMBULANCE Time Seen by Provider: 04/05/18 09:20 Source of Information: Reports: Patient History Limitations: Reports: No Limitations - History of Present Illness INITIAL COMMENTS - FREE TEXT/NARRATIVE: This 53 yo male patient was brought to the ED by [facility] due to swelling in his feet and shortness of breath. The patient reports he has been taking all medications as prescribed. The patient reports he noticed the swelling in his feet 3 days ago. The patient reports he was supposed to have an appointment at the [facility] today, but his provider called and cancelled the appointment. The patient reports the appointment was supposed to be for a follow -up to his hospitalization last week. The patient admits to "doing a little meth " yesterday. The patient states he has been eating a lot of soup, drinking coffee, and energy drinks since his discharge from [facility] in [place]. Duration: Day(s):, Constant Location: Reports: Lower Extremity, Left, Lower Extremity, Right, Generalized Quality: Reports: Other Severity: Moderate Improves with: Reports: None Worsens with: Reports: None Associated Symptoms: Reports: No Other Symptoms Generalized Pain Score (Numeric/FACES): 7 - Related Data Allergies Allergy/AdvReac Type Severity Reaction Status Date / Time No Known Allergies Allergy Verified 04/05/18 09:04 Home Meds: Home Meds Carvedilol 6.25 mg PO BID 60 Days tablet 12/21/17 [Rx] Digoxin 0.25 mg PO DAILY #30 tablet 12/21/17 [Rx] Fluticasone/Salmeterol [Advair 250-50 Diskus] 1 puff INH Q12H #1 disk.w.dev [Rx] Furosemide [Lasix] 60 mg PO BID #60 tablet 12/21/17 [Rx] Pantoprazole Sodium [Protonix] 40 mg PO DAILY #30 tablet.dr 12/21/17 [Rx] Potassium Chloride 40 meq PO BID 60 Days tablet.er 12/21/17 [Rx] Spironolactone [Aldactone] 25 mg PO DAILY #30 tablet 12/21/17 [Rx] Benzonatate [Tessalon Perle] 100 mg PO TID PRN 01/29/18 [History] FLUoxetine [PROzac] 20 mg PO DAILY 01/29/18 [History] ALPRAZolam [Alprazolam] 0.25 mg PO BID 02/13/18 [History] Melatonin 1 tab PO DAILY 02/21/18 [History] Albuterol [Ventolin HFA] 1 puff INH Q6HR PRN 03/07/18 [History] Calcium Carbonate [Tums] 500 mg PO TID PRN 03/07/18 [History] Docusate Sodium [Colace] 100 mg PO DAILY PRN cap 03/08/18 [Rx] Past Medical History - Past Health History Medical/Surgical History: Denies Medical/Surgical History HEENT History: Reports: None Cardiovascular History: Reports: Blood Clots/VTE/DVT, Cardiomyopathy, Heart Failure, Hypertension, SOB on Exertion Respiratory History: Reports: SOB Gastrointestinal History: Reports: Cirrhosis, Gastritis, GERD Genitourinary History: Reports: Other (See Below) Other Genitourinary History: liver issues r/t ETOH Musculoskeletal History: Reports: Arthritis, Other (See Below) Other Musculoskeletal History: torn left and right upper arm tendon. missed surgery 03/2017 Neurological History: Reports: None Psychiatric History: Reports: Addiction, Anxiety, Depression, Panic Attack Other Psychiatric History: addiction treatment January 2018 Endocrine/Metabolic History: Reports: None Hematologic History: Reports: None Immunologic History: Reports: None Oncologic (Cancer) History: Reports: None Dermatologic History: Reports: None - Infectious Disease History Infectious Disease History: Reports: None - Past Surgical History Head Surgeries/Procedures: Reports: None Cardiovascular Surgical History: Reports: AICD, Percutaneous Transluminal Angioplasty Respiratory Surgical History: Reports: None GI Surgical History: Reports: None Male Surgical History: Reports: None Neurological Surgical History: Reports: None Musculoskeletal Surgical History: Reports: None Social & Family History - Family History Family Medical History: Unobtainable Cardiac: Reports: Hypertension Other Cardiac Family History: Dad and paternal grandmother have hypertension. Respiratory: Reports: Asthma Other Respiratory Family Hisory: Mom and dad have asthma. Endocrine/Metabolic: Reports: Diabetes, Type I Other Endocrine/Metabolic Family History: Dad and paternal grandmother have type I diabetes. - Tobacco Use Smoking Status *Q: Current Every Day Smoker Years of Tobacco use: 10 Packs/Tins Daily: 1 - Caffeine Use Caffeine Use: Reports: Coffee Other Caffeine Use: 12. cups/day - Recreational Drug Use Recreational Drug Use: No - Living Situation & Occupation Living situation: Reports: Alone Occupation: Unemployed ED ROS GENERAL - Review of Systems Review Of Systems: ROS reveals no pertinent complaints other than HPI. ED EXAM, GENERAL - Physical Exam Exam: See Below Exam Limited By: No Limitations General Appearance: Alert, WD/WN, Mild Distress Eye Exam: Bilateral Eye: EOMI, Normal Inspection, PERRL Ears: Normal External Exam, Normal Canal, Hearing Grossly Normal, Normal TMs Nose: Normal Inspection, Normal Mucosa, No Blood Throat/Mouth: Normal Inspection, Normal Lips, Normal Teeth, Normal Gums, Normal Oropharynx, Normal Voice, No Airway Compromise Head: Atraumatic, Normocephalic Neck: Normal Inspection, Supple, Non-Tender, Full Range of Motion Respiratory/Chest: No Respiratory Distress, No Accessory Muscle Use, Chest Non- Tender, Rhonchi Cardiovascular: Normal Peripheral Pulses, Regular Rate, Rhythm, No Gallop, No JVD, No Murmur, No Rub GI/Abdominal: Normal Bowel Sounds, Soft, Non-Tender, No Organomegaly, No Distention, No Abnormal Bruit, No Mass (Male) Exam: Deferred Rectal (Males) Exam: Deferred Back Exam: Normal Inspection, Full Range of Motion, NT Extremities: Normal Range of Motion, Non-Tender, Normal Capillary Refill, Pedal Edema (2+ bilateral ) Neurological: Alert, Oriented, CN II-XII Intact, Normal Cognition Psychiatric: Normal Affect, Normal Mood Skin Exam: Warm, Dry, Intact, Normal Color, No Rash Lymphatic: No Adenopathy Course - Vital Signs Last Recorded V/S: Last Vital Signs Temp 36.1 C 04/05/18 09:09 Pulse 97 04/05/18 09:09 Resp 14 04/05/18 09:09 BP 111/93 H 04/05/18 09:09 Pulse Ox 98 04/05/18 09:09 - Orders/Labs/Meds Orders: Active Orders 24 hr Category Date Time Status EKG Documentation Completion [RC] URGENT Care 04/05/18 09:00 Active Labs: Laboratory Tests 04/05/18 04/05/18 04/05/18 Range/Units 09:12 09:12 09:17 WBC 5.6 (5.0-10.0) 10^3/uL RBC 4.79 (4.6-6.2) 10^6/uL Hgb 11.8 L (14.0-18.0) g/dL Hct 36.4 L (40.0-54.0) % MCV 76.0 L (80-100) fL MCH 24.6 L (27.0-34.0) pg MCHC 32.4 L (33.0-35.0) g/dL Plt Count 212 (150-450) 10^3/uL Neut % (Auto) 70.4 (42.2-75.2) % Lymph % (Auto) 16.3 L (20.5-50.1) % [place] % (Auto) 9.3 H (2-8) % Eos % (Auto) 2.7 (1.0-3.0) % Baso % (Auto) 1.3 H (0.0-1.0) % Sodium 132 L (135-145) mmol/L Potassium 3.6 (3.6-5.0) mmol/L Chloride 98 L (101-111) mmol/L Carbon Dioxide 24.0 (21.0-31.0) mmol/L Anion Gap 13.6 BUN 19 H (7-18) mg/dL Creatinine 0.9 (0.6-1.3) mg/dL Est Cr Clr Drug Dosing 97.10 mL/min Estimated GFR (MDRD) > 60 BUN/Creatinine Ratio 21.11 Glucose 93 (74-105) mg/dL Calcium 8.8 (8.4-10.2) mg/dl Total Bilirubin 4.6 H (0.2-1.0) mg/dL AST 42 (10-42) IU/L ALT 17 (10-60) IU/L Alkaline Phosphatase 78 (42-121) IU/L Troponin I 0.03 H* (0.00-0.02) ng/ml B-Natriuretic Peptide 2200 H (0-100) pg/ml Total Protein 7.1 (6.7-8.2) g/dl Albumin 3.2 (3.2-5.5) g/dl Globulin 3.9 Albumin/Globulin Ratio 0.82 Urine Color [place] (YELLOW) Urine Appearance Clear (CLEAR) Urine pH 6.0 (5.0-9.0) Ur Specific [place] 1.025 (1.005-1.030) Urine Protein 100 H (NEGATIVE) Urine Glucose (UA) Negative (NEGATIVE) Urine Ketones 15 H (NEGATIVE) Urine Occult Blood Negative (NEGATIVE) Urine Nitrite Negative (NEGATIVE) Urine Bilirubin Small H (NEGATIVE) Urine Urobilinogen 4.0 H (0.2-1.0) mg/dL Ur Leukocyte Esterase Negative (NEGATIVE) Urine RBC 0-5 /HPF Urine WBC 0-5 (0-5/HPF) /HPF Ur Epithelial Cells Not seen /HPF Urine Bacteria Few (0-FEW/HPF) /HPF Hyaline Casts Few H /LPF Urine Mucus Many H /LPF Urine Opiates Screen (NEGATIVE) Ur Oxycodone Screen (NEGATIVE) Urine Methadone Screen (NEGATIVE) Ur Barbiturates Screen (NEGATIVE) U Tricyclic Antidepress (NEGATIVE) Ur Phencyclidine Scrn (NEGATIVE) Ur Amphetamine Screen (NEGATIVE) U Methamphetamines Scrn (NEGATIVE) Urine MDMA Screen (NEGATIVE) U Benzodiazepines Scrn (NEGATIVE) Urine Cocaine Screen (NEGATIVE) U Marijuana (THC) Screen (NEGATIVE) 04/05/18 Range/Units 09:17 WBC (5.0-10.0) 10^3/uL RBC (4.6-6.2) 10^6/uL Hgb (14.0-18.0) g/dL Hct (40.0-54.0) % MCV (80-100) fL MCH (27.0-34.0) pg MCHC (33.0-35.0) g/dL Plt Count (150-450) 10^3/uL Neut % (Auto) (42.2-75.2) % Lymph % (Auto) (20.5-50.1) % [place] % (Auto) (2-8) % Eos % (Auto) (1.0-3.0) % Baso % (Auto) (0.0-1.0) % Sodium (135-145) mmol/L Potassium (3.6-5.0) mmol/L Chloride (101-111) mmol/L Carbon Dioxide (21.0-31.0) mmol/L Anion Gap BUN (7-18) mg/dL Creatinine (0.6-1.3) mg/dL Est Cr Clr Drug Dosing mL/min Estimated GFR (MDRD) BUN/Creatinine Ratio Glucose (74-105) mg/dL Calcium (8.4-10.2) mg/dl Total Bilirubin (0.2-1.0) mg/dL AST (10-42) IU/L ALT (10-60) IU/L Alkaline Phosphatase (42-121) IU/L Troponin I (0.00-0.02) ng/ml B-Natriuretic Peptide (0-100) pg/ml Total Protein (6.7-8.2) g/dl Albumin (3.2-5.5) g/dl Globulin Albumin/Globulin Ratio Urine Color (YELLOW) Urine Appearance (CLEAR) Urine pH (5.0-9.0) Ur Specific [place] (1.005-1.030) Urine Protein (NEGATIVE) Urine Glucose (UA) (NEGATIVE) Urine Ketones (NEGATIVE) Urine Occult Blood (NEGATIVE) Urine Nitrite (NEGATIVE) Urine Bilirubin (NEGATIVE) Urine Urobilinogen (0.2-1.0) mg/dL Ur Leukocyte Esterase (NEGATIVE) Urine RBC /HPF Urine WBC (0-5/HPF) /HPF Ur Epithelial Cells /HPF Urine Bacteria (0-FEW/HPF) /HPF Hyaline Casts /LPF Urine Mucus /LPF Urine Opiates Screen Negative (NEGATIVE) Ur Oxycodone Screen Negative (NEGATIVE) Urine Methadone Screen Negative (NEGATIVE) Ur Barbiturates Screen Negative (NEGATIVE) U Tricyclic Antidepress Negative (NEGATIVE) Ur Phencyclidine Scrn Negative (NEGATIVE) Ur Amphetamine Screen Negative (NEGATIVE) U Methamphetamines Scrn Positive H (NEGATIVE) Urine MDMA Screen Negative (NEGATIVE) U Benzodiazepines Scrn Negative (NEGATIVE) Urine Cocaine Screen Negative (NEGATIVE) U Marijuana (THC) Screen Negative (NEGATIVE) Departure - Departure Time of Disposition: 09:54 Disposition: Home, Self-Care 01 Condition: Fair Clinical Impression: CHF, Congestive heart failure, Methamphetamine abuse Instructions: Stimulant Use Disorder-Methamphetamines, Heart Failure Eating Plan, Heart Failure, [id number] Care Plan Goals: The patient was advised of the examination, lab and EKG results during the visit. The patient was given an oral dose of Lasix while in the ED. The patient was advised to follow-up with his primary care facility. The patient should stick to a low sodium diet. The patient should continue to take his medications as he was advised. If the patient has any additional symptoms or concerns, the patient should either return to the emergency department or visit his primary care facility. - My Orders Last 24 Hours: My Active Orders 04/05/18 09:00 EKG Documentation Completion [RC] URGENT - Assessment/Plan Last 24 Hours: My Active Orders 04/05/18 09:00 EKG Documentation Completion [RC] URGENT
== END 2018-04-05 09:58 | disposition home or self-care (01) ==
LOC: DL.ED 08:58
DX: I11.0 Hypertensive heart disease with heart failure (principal); I50.9 Heart failure, unspecified; F17.210 Nicotine dependence, cigarettes, uncomplicated; F15.10 Other stimulant abuse, uncomplicated; Z79.899 Other long term (current) drug therapy
CPT/HCPCS: 36415; 80053; 80305; 81001; 83880; 84484; 85025; 93005; 99285; A9270

== ENCOUNTER 2018-04-09 05:50 | Emergency (ER) | payer MEDICARE ==
[2018-04-09 05:57] VITALS: BP 117/89
[2018-04-09] MEDS ORDERED: Pantoprazole 80 MG in Sodium Chloride 0.9% 100 ML IV ONE (06:28)
[2018-04-09] MEDS ORDERED: Ondansetron 4 MG/2 ML SDV IV ONE (06:28)
[2018-04-09] MEDS ORDERED: fentaNYL 100 MCG/2 ML SDV IVPUSH ONE (06:28)
[2018-04-09 06:38] LABS: ANION GAP 11.4; CHLORIDE,CL 103 mmol/L (101-111); SODIUM,NA 136 mmol/L (135-145)
--- NOTE | 2018-04-09 06:38 | EDM.PDOC ---
ED HPI GENERAL MEDICAL PROBLEM - General Chief Complaint: Gastrointestinal Problem Stated Complaint: AMBULANCE-UNKNOWN Time Seen by Provider: 04/09/18 06:15 Source of Information: Reports: Patient, EMS History Limitations: Reports: No Limitations - History of Present Illness INITIAL COMMENTS - FREE TEXT/NARRATIVE: ED with c/o nausea vomiting and diarrhea x days dark brown emesis and blood streaks in diarrhea. Up to BR with both approximately 12 times during night, describes mid abdominal pain as sharp burning type. Reports meth use one week ago and last ETOH one month ago. Weight increased to 180, usual 175#. Sweats prior to vomiting, No fever. Missed follow up appointment in [place] on Thursday due to weather, and follow up surgical consult for gall bladder on Thursday. Able to eat sandwich and juice yesterday for lunch. No active vomiting in ED. Left Upper Abdomen Pain Score (Numeric/FACES): 7 - Related Data Allergies Allergy/AdvReac Type Severity Reaction Status Date / Time No Known Allergies Allergy Verified 04/05/18 09:04 Home Meds: Home Meds Carvedilol 6.25 mg PO BID 60 Days tablet 12/21/17 [Rx] Digoxin 0.25 mg PO DAILY #30 tablet 12/21/17 [Rx] Fluticasone/Salmeterol [Advair 250-50 Diskus] 1 puff INH Q12H #1 disk.w.dev [Rx] Furosemide [Lasix] 60 mg PO BID #60 tablet 12/21/17 [Rx] Pantoprazole Sodium [Protonix] 40 mg PO DAILY #30 tablet.dr 12/21/17 [Rx] Potassium Chloride 40 meq PO BID 60 Days tablet.er 12/21/17 [Rx] Spironolactone [Aldactone] 25 mg PO DAILY #30 tablet 12/21/17 [Rx] Benzonatate [Tessalon Perle] 100 mg PO TID PRN 01/29/18 [History] FLUoxetine [PROzac] 20 mg PO DAILY 01/29/18 [History] ALPRAZolam [Alprazolam] 0.25 mg PO BID 02/13/18 [History] Melatonin 1 tab PO DAILY 02/21/18 [History] Albuterol [Ventolin HFA] 1 puff INH Q6HR PRN 03/07/18 [History] Calcium Carbonate [Tums] 500 mg PO TID PRN 03/07/18 [History] Docusate Sodium [Colace] 100 mg PO DAILY PRN cap 03/08/18 [Rx] Past Medical History - Past Health History Medical/Surgical History: Denies Medical/Surgical History HEENT History: Reports: None Cardiovascular History: Reports: Blood Clots/VTE/DVT, Cardiomyopathy, Heart Failure, Hypertension, SOB on Exertion Respiratory History: Reports: SOB Gastrointestinal History: Reports: Cirrhosis, Gastritis, GERD Genitourinary History: Reports: Other (See Below) Other Genitourinary History: liver issues r/t ETOH Musculoskeletal History: Reports: Arthritis, Other (See Below) Other Musculoskeletal History: torn left and right upper arm tendon. missed surgery 03/2017 Neurological History: Reports: None Psychiatric History: Reports: Addiction, Anxiety, Depression, Panic Attack Other Psychiatric History: addiction treatment January 2018 Endocrine/Metabolic History: Reports: None Hematologic History: Reports: None Immunologic History: Reports: None Oncologic (Cancer) History: Reports: None Dermatologic History: Reports: None - Infectious Disease History Infectious Disease History: Reports: None - Past Surgical History Head Surgeries/Procedures: Reports: None Cardiovascular Surgical History: Reports: AICD, Percutaneous Transluminal Angioplasty Respiratory Surgical History: Reports: None GI Surgical History: Reports: None Male Surgical History: Reports: None Neurological Surgical History: Reports: None Musculoskeletal Surgical History: Reports: None Social & Family History - Family History Family Medical History: Unobtainable Cardiac: Reports: Hypertension Other Cardiac Family History: Dad and paternal grandmother have hypertension. Respiratory: Reports: Asthma Other Respiratory Family Hisory: Mom and dad have asthma. Endocrine/Metabolic: Reports: Diabetes, Type I Other Endocrine/Metabolic Family History: Dad and paternal grandmother have type I diabetes. - Tobacco Use Smoking Status *Q: Current Some Day Smoker Years of Tobacco use: 11 Packs/Tins Daily: 0.1 Second Hand Smoke Exposure: Yes - Caffeine Use Caffeine Use: Reports: Coffee, Soda Other Caffeine Use: 12. cups/day - Recreational Drug Use Recreational Drug Use: Yes Recreational Drug Type: Reports: Methamphetamine Recreational Drug Use Frequency: Binges - Living Situation & Occupation Living situation: Reports: Alone Occupation: Unemployed ED ROS GENERAL - Review of Systems Review Of Systems: ROS reveals no pertinent complaints other than HPI. ED EXAM, GI/ABD - Physical Exam Exam: See Below Exam Limited By: No Limitations General Appearance: Alert, Mild Distress Eyes: Bilateral: EOMI Ears: Normal External Exam Nose: Normal Inspection Throat/Mouth: Normal Inspection Head: Atraumatic, Normocephalic Neck: Normal Inspection Respiratory/Chest: No Respiratory Distress, Crackles (mid diminished baces), Wheezing (mid to upper bilateral) Cardiovascular: Normal Peripheral Pulses, Regular Rate, Rhythm GI/Abdominal Exam: Normal Bowel Sounds, Soft, Tender (generalized tenderness greater mid). No: Distended, Rebound Rectal (Males) Exam: Normal Rectal Tone Extremities: Pedal Edema (2+) Neurological: Alert, Oriented, Normal Cognition Psychiatric: Normal Affect, Normal Mood Skin Exam: Warm, Dry, Intact Course - Vital Signs Last Recorded V/S: Last Vital Signs Temp 97.4 F 04/09/18 05:56 Pulse 106 H 04/09/18 05:56 Resp 20 04/09/18 05:56 BP 117/89 04/09/18 05:56 Pulse Ox 100 04/09/18 05:56 - Orders/Labs/Meds Labs: Laboratory Tests 04/09/18 04/09/18 04/09/18 Range/Units 06:05 06:05 06:10 WBC 5.4 (5.0-10.0) 10^3/uL RBC 4.40 L (4.6-6.2) 10^6/uL Hgb 10.7 L (14.0-18.0) g/dL Hct 33.5 L (40.0-54.0) % MCV 76.1 L (80-100) fL MCH 24.3 L (27.0-34.0) pg MCHC 31.9 L (33.0-35.0) g/dL Plt Count 172 (150-450) 10^3/uL Neut % (Auto) 67.0 (42.2-75.2) % Lymph % (Auto) 17.5 L (20.5-50.1) % [place] % (Auto) 9.5 H (2-8) % Eos % (Auto) 4.7 H (1.0-3.0) % Baso % (Auto) 1.3 H (0.0-1.0) % PT (9.0-12.0) SEC INR (0.9-1.2) Sodium (135-145) mmol/L Potassium (3.6-5.0) mmol/L Chloride (101-111) mmol/L Carbon Dioxide (21.0-31.0) mmol/L Anion Gap BUN (7-18) mg/dL Creatinine (0.6-1.3) mg/dL Est Cr Clr Drug Dosing mL/min Estimated GFR (MDRD) BUN/Creatinine Ratio Glucose (74-105) mg/dL Calcium (8.4-10.2) mg/dl Magnesium (1.8-2.5) mg/dL Total Bilirubin (0.2-1.0) mg/dL AST (10-42) IU/L ALT (10-60) IU/L Alkaline Phosphatase (42-121) IU/L CK-MB (CK-2) (0.4-4.7) ng/mL Troponin I (0.00-0.02) ng/ml B-Natriuretic Peptide (0-100) pg/ml Total Protein (6.7-8.2) g/dl Albumin (3.2-5.5) g/dl Globulin Albumin/Globulin Ratio Amylase (28-100) U/L Lipase (22-51) U/L Urine Color Dark yellow (YELLOW) Urine Appearance Clear (CLEAR) Urine pH 6.0 (5.0-9.0) Ur Specific [place] >= 1.030 (1.005-1.030) Urine Protein 100 H (NEGATIVE) Urine Glucose (UA) Negative (NEGATIVE) Urine Ketones 15 H (NEGATIVE) Urine Occult Blood Negative (NEGATIVE) Urine Nitrite Negative (NEGATIVE) Urine Bilirubin Small H (NEGATIVE) Urine Urobilinogen 4.0 H (0.2-1.0) mg/dL Ur Leukocyte Esterase Negative (NEGATIVE) Urine RBC 0-5 /HPF Urine WBC 0-5 (0-5/HPF) /HPF Ur Epithelial Cells Few /HPF Urine Bacteria Few (0-FEW/HPF) /HPF Hyaline Casts Few H /LPF Urine Mucus Moderate H /LPF Urine Opiates Screen Negative (NEGATIVE) Ur Oxycodone Screen Negative (NEGATIVE) Urine Methadone Screen Negative (NEGATIVE) Ur Barbiturates Screen Negative (NEGATIVE) U Tricyclic Antidepress Negative (NEGATIVE) Ur Phencyclidine Scrn Negative (NEGATIVE) Ur Amphetamine Screen Negative (NEGATIVE) U Methamphetamines Scrn Positive H (NEGATIVE) Urine MDMA Screen Negative (NEGATIVE) U Benzodiazepines Scrn Negative (NEGATIVE) Urine Cocaine Screen Negative (NEGATIVE) U Marijuana (THC) Screen Negative (NEGATIVE) Ethyl Alcohol mg/dL Blood Type Gel Antibody Screen 04/09/18 04/09/18 04/09/18 Range/Units 06:10 06:10 06:10 WBC (5.0-10.0) 10^3/uL RBC (4.6-6.2) 10^6/uL Hgb (14.0-18.0) g/dL Hct (40.0-54.0) % MCV (80-100) fL MCH (27.0-34.0) pg MCHC (33.0-35.0) g/dL Plt Count (150-450) 10^3/uL Neut % (Auto) (42.2-75.2) % Lymph % (Auto) (20.5-50.1) % [place] % (Auto) (2-8) % Eos % (Auto) (1.0-3.0) % Baso % (Auto) (0.0-1.0) % PT (9.0-12.0) SEC INR (0.9-1.2) Sodium 136 (135-145) mmol/L Potassium 3.4 L (3.6-5.0) mmol/L Chloride 103 (101-111) mmol/L Carbon Dioxide 25.0 (21.0-31.0) mmol/L Anion Gap 11.4 BUN 15 (7-18) mg/dL Creatinine 0.9 (0.6-1.3) mg/dL Est Cr Clr Drug Dosing 97.10 mL/min Estimated GFR (MDRD) > 60 BUN/Creatinine Ratio 16.66 Glucose 86 (74-105) mg/dL Calcium 8.8 (8.4-10.2) mg/dl Magnesium 1.7 L (1.8-2.5) mg/dL Total Bilirubin 3.0 H (0.2-1.0) mg/dL AST 36 (10-42) IU/L ALT 16 (10-60) IU/L Alkaline Phosphatase 103 (42-121) IU/L CK-MB (CK-2) 2.80 (0.4-4.7) ng/mL Troponin I 0.04 H* (0.00-0.02) ng/ml B-Natriuretic Peptide 2520 H (0-100) pg/ml Total Protein 6.9 (6.7-8.2) g/dl Albumin 3.4 (3.2-5.5) g/dl Globulin 3.5 Albumin/Globulin Ratio 0.97 Amylase 69 (28-100) U/L Lipase 43 (22-51) U/L Urine Color (YELLOW) Urine Appearance (CLEAR) Urine pH (5.0-9.0) Ur Specific [place] (1.005-1.030) Urine Protein (NEGATIVE) Urine Glucose (UA) (NEGATIVE) Urine Ketones (NEGATIVE) Urine Occult Blood (NEGATIVE) Urine Nitrite (NEGATIVE) Urine Bilirubin (NEGATIVE) Urine Urobilinogen (0.2-1.0) mg/dL Ur Leukocyte Esterase (NEGATIVE) Urine RBC /HPF Urine WBC (0-5/HPF) /HPF Ur Epithelial Cells /HPF Urine Bacteria (0-FEW/HPF) /HPF Hyaline Casts /LPF Urine Mucus /LPF Urine Opiates Screen (NEGATIVE) Ur Oxycodone Screen (NEGATIVE) Urine Methadone Screen (NEGATIVE) Ur Barbiturates Screen (NEGATIVE) U Tricyclic Antidepress (NEGATIVE) Ur Phencyclidine Scrn (NEGATIVE) Ur Amphetamine Screen (NEGATIVE) U Methamphetamines Scrn (NEGATIVE) Urine MDMA Screen (NEGATIVE) U Benzodiazepines Scrn (NEGATIVE) Urine Cocaine Screen (NEGATIVE) U Marijuana (THC) Screen (NEGATIVE) Ethyl Alcohol < 5 mg/dL Blood Type B POSITIVE Gel Antibody Screen Negative 04/09/18 Range/Units 06:10 WBC (5.0-10.0) 10^3/uL RBC (4.6-6.2) 10^6/uL Hgb (14.0-18.0) g/dL Hct (40.0-54.0) % MCV (80-100) fL MCH (27.0-34.0) pg MCHC (33.0-35.0) g/dL Plt Count (150-450) 10^3/uL Neut % (Auto) (42.2-75.2) % Lymph % (Auto) (20.5-50.1) % [place] % (Auto) (2-8) % Eos % (Auto) (1.0-3.0) % Baso % (Auto) (0.0-1.0) % PT 12.8 H (9.0-12.0) SEC INR 1.3 H (0.9-1.2) Sodium (135-145) mmol/L Potassium (3.6-5.0) mmol/L Chloride (101-111) mmol/L Carbon Dioxide (21.0-31.0) mmol/L Anion Gap BUN (7-18) mg/dL Creatinine (0.6-1.3) mg/dL Est Cr Clr Drug Dosing mL/min Estimated GFR (MDRD) BUN/Creatinine Ratio Glucose (74-105) mg/dL Calcium (8.4-10.2) mg/dl Magnesium (1.8-2.5) mg/dL Total Bilirubin (0.2-1.0) mg/dL AST (10-42) IU/L ALT (10-60) IU/L Alkaline Phosphatase (42-121) IU/L CK-MB (CK-2) (0.4-4.7) ng/mL Troponin I (0.00-0.02) ng/ml B-Natriuretic Peptide (0-100) pg/ml Total Protein (6.7-8.2) g/dl Albumin (3.2-5.5) g/dl Globulin Albumin/Globulin Ratio Amylase (28-100) U/L Lipase (22-51) U/L Urine Color (YELLOW) Urine Appearance (CLEAR) Urine pH (5.0-9.0) Ur Specific [place] (1.005-1.030) Urine Protein (NEGATIVE) Urine Glucose (UA) (NEGATIVE) Urine Ketones (NEGATIVE) Urine Occult Blood (NEGATIVE) Urine Nitrite (NEGATIVE) Urine Bilirubin (NEGATIVE) Urine Urobilinogen (0.2-1.0) mg/dL Ur Leukocyte Esterase (NEGATIVE) Urine RBC /HPF Urine WBC (0-5/HPF) /HPF Ur Epithelial Cells /HPF Urine Bacteria (0-FEW/HPF) /HPF Hyaline Casts /LPF Urine Mucus /LPF Urine Opiates Screen (NEGATIVE) Ur Oxycodone Screen (NEGATIVE) Urine Methadone Screen (NEGATIVE) Ur Barbiturates Screen (NEGATIVE) U Tricyclic Antidepress (NEGATIVE) Ur Phencyclidine Scrn (NEGATIVE) Ur Amphetamine Screen (NEGATIVE) U Methamphetamines Scrn (NEGATIVE) Urine MDMA Screen (NEGATIVE) U Benzodiazepines Scrn (NEGATIVE) Urine Cocaine Screen (NEGATIVE) U Marijuana (THC) Screen (NEGATIVE) Ethyl Alcohol mg/dL Blood Type Gel Antibody Screen Meds: Medications Discontinued Medications Generic Name Dose Route Start Last Admin Trade Name Walter PRN Reason Stop Dose Admin Fentanyl 25 mcg 04/09/18 06:28 04/09/18 06:46 Sublimaze IVPUSH 04/09/18 06:29 25 mcg ONETIME ONE Administration Pantoprazole Sodium 80 mg/ 100 mls @ 200 mls/hr 04/09/18 06:28 04/09/18 06:47 Sodium Chloride IV 04/09/18 06:57 200 mls/hr .BOLUS ONE Administration Ondansetron HCl 4 mg 04/09/18 06:28 04/09/18 06:44 Zofran IV 04/09/18 06:29 4 mg ONETIME ONE Administration - Re-Assessments/Exams Free Text/Narrative Re-Assessment/Exam: 04/09/18 07:31 Dr Andrade [facility] Hospitalist accepting patient in tx. Departure - Departure Time of Disposition: 07:45 Disposition: DC/Tfer to Acute Hospital 02 Condition: Undetermined Clinical Impression: Heme + stool, Diarrhea, Abdominal pain, Elevated troponin, Chronic systolic ( congestive) heart failure, Drug abuse, Total bilirubin, elevated - Discharge Information Referrals: PCP,Unobtain [Ordering Only Provider] - Forms: ED Department Discharge
[2018-04-09] MEDS ORDERED: Pantoprazole 40 MG in Sodium Chloride 0.9% 100 ML IV SCH (07:30)
== END 2018-04-09 07:52 ==
LOC: DL.ED 05:50
DX: K92.1 Melena (principal); R19.7 Diarrhea, unspecified; I11.0 Hypertensive heart disease with heart failure; F41.9 Anxiety disorder, unspecified; F32.9 Major depressive disorder, single episode, unspecified; I50.22 Chronic systolic (congestive) heart failure; F19.10 Other psychoactive substance abuse, uncomplicated; E80.7 Disorder of bilirubin metabolism, unspecified; F17.210 Nicotine dependence, cigarettes, uncomplicated; Z79.899 Other long term (current) drug therapy
CPT/HCPCS: 36415; 71045; 74019; 80053; 80305; 81001; 82150; 82272; 82553; 83690; 83735; 83880; 84484; 85025; 85610; 86850; 86900; 86901; 93005; 96365; 96375; 99285; C9113; G0480; J2405; J3010; J7050

== ENCOUNTER 2018-04-25 09:35 | Emergency (ER) | payer MEDICARE, MEDICAID ==
[2018-04-25 10:19] VITALS: BP 117/91
--- NOTE | 2018-04-25 10:27 | EDM.PDOC ---
ED HPI GENERAL MEDICAL PROBLEM - General Chief Complaint: Gastrointestinal Problem Stated Complaint: AMBULANCE Time Seen by Provider: 04/25/18 10:10 Source of Information: Reports: Patient History Limitations: Reports: No Limitations - History of Present Illness INITIAL COMMENTS - FREE TEXT/NARRATIVE: This 53 yo male patient was brought to the ED by [facility] due to feeling like he has the "flu". The patient reports he has not been able to eat in the past 2 days due to nausea and vomiting. The patient reports he just got out of the hospital on Thursday. The patient reports he has been taking his medications as directed. The patient reports he has been taking hydrocodone for his left shoulder pain. Onset: Gradual Duration: Day(s):, Constant Location: Reports: Abdomen Severity: Moderate Improves with: Reports: None Worsens with: Reports: None Treatments TAX AGENT: Reports: NSAIDS, Other Medication(s) (Hydrocodone) - Related Data Allergies Allergy/AdvReac Type Severity Reaction Status Date / Time No Known Allergies Allergy Verified 04/25/18 09:57 Home Meds: Home Meds Carvedilol 6.25 mg PO BID 60 Days tablet 12/21/17 [Rx] Digoxin 0.25 mg PO DAILY #30 tablet 12/21/17 [Rx] Fluticasone/Salmeterol [Advair 250-50 Diskus] 1 puff INH Q12H #1 disk.w.dev [Rx] Furosemide [Lasix] 60 mg PO BID #60 tablet 12/21/17 [Rx] Pantoprazole Sodium [Protonix] 40 mg PO DAILY #30 tablet.dr 12/21/17 [Rx] Potassium Chloride 40 meq PO BID 60 Days tablet.er 12/21/17 [Rx] Spironolactone [Aldactone] 25 mg PO DAILY #30 tablet 12/21/17 [Rx] Benzonatate [Tessalon Perle] 100 mg PO TID PRN 01/29/18 [History] FLUoxetine [PROzac] 20 mg PO DAILY 01/29/18 [History] ALPRAZolam [Alprazolam] 0.25 mg PO BID 02/13/18 [History] Melatonin 1 tab PO DAILY 02/21/18 [History] Albuterol [Ventolin HFA] 1 puff INH Q6HR PRN 03/07/18 [History] Calcium Carbonate [Tums] 500 mg PO TID PRN 03/07/18 [History] Docusate Sodium [Colace] 100 mg PO DAILY PRN cap 03/08/18 [Rx] Past Medical History - Past Health History Medical/Surgical History: Denies Medical/Surgical History HEENT History: Reports: None Cardiovascular History: Reports: Blood Clots/VTE/DVT, Cardiomyopathy, Heart Failure, Hypertension, SOB on Exertion Respiratory History: Reports: SOB Gastrointestinal History: Reports: Cirrhosis, Gastritis, GERD Genitourinary History: Reports: Other (See Below) Other Genitourinary History: liver issues r/t ETOH Musculoskeletal History: Reports: Arthritis, Other (See Below) Other Musculoskeletal History: torn left and right upper arm tendon. missed surgery 03/2017 Neurological History: Reports: None Psychiatric History: Reports: Addiction, Anxiety, Depression, Panic Attack Other Psychiatric History: addiction treatment January 2018 Endocrine/Metabolic History: Reports: None Hematologic History: Reports: None Immunologic History: Reports: None Oncologic (Cancer) History: Reports: None Dermatologic History: Reports: None - Infectious Disease History Infectious Disease History: Reports: None - Past Surgical History Head Surgeries/Procedures: Reports: None Cardiovascular Surgical History: Reports: AICD, Percutaneous Transluminal Angioplasty Respiratory Surgical History: Reports: None GI Surgical History: Reports: None Male Surgical History: Reports: None Neurological Surgical History: Reports: None Musculoskeletal Surgical History: Reports: None Social & Family History - Family History Family Medical History: Unobtainable Cardiac: Reports: Hypertension Other Cardiac Family History: Dad and paternal grandmother have hypertension. Respiratory: Reports: Asthma Other Respiratory Family Hisory: Mom and dad have asthma. Endocrine/Metabolic: Reports: Diabetes, Type I Other Endocrine/Metabolic Family History: Dad and paternal grandmother have type I diabetes. - Tobacco Use Smoking Status *Q: Current Every Day Smoker Years of Tobacco use: 11 Packs/Tins Daily: 1 - Caffeine Use Caffeine Use: Reports: Coffee Other Caffeine Use: 12. cups/day - Recreational Drug Use Recreational Drug Type: Reports: Marijuana/Hashish, Methamphetamine - Living Situation & Occupation Living situation: Reports: Alone Occupation: Unemployed ED ROS GENERAL - Review of Systems Review Of Systems: ROS reveals no pertinent complaints other than HPI. ED EXAM, GENERAL - Physical Exam Exam: See Below Exam Limited By: No Limitations General Appearance: Alert, WD/WN, Mild Distress Eye Exam: Bilateral Eye: EOMI, Normal Inspection, PERRL Ears: Normal External Exam, Normal Canal, Hearing Grossly Normal, Normal TMs Nose: Normal Inspection, Normal Mucosa, No Blood Throat/Mouth: Normal Inspection, Normal Lips, Normal Teeth, Normal Gums, Normal Oropharynx, Normal Voice, No Airway Compromise Head: Atraumatic, Normocephalic Neck: Normal Inspection, Supple, Non-Tender, Full Range of Motion Respiratory/Chest: No Respiratory Distress, Lungs Clear, Normal Breath Sounds, No Accessory Muscle Use, Chest Non-Tender Cardiovascular: Normal Peripheral Pulses, Regular Rate, Rhythm, No Edema, No Gallop, No JVD, No Murmur, No Rub GI/Abdominal: Normal Bowel Sounds, Soft, No Organomegaly, No Distention, No Abnormal Bruit, No Mass, Pelvis Stable, Tender (diffuse) (Male) Exam: Deferred Rectal (Males) Exam: Deferred Back Exam: Normal Inspection, Full Range of Motion, NT Extremities: Normal Inspection, Normal Range of Motion, Non-Tender, Normal Capillary Refill, No Pedal Edema Neurological: Alert, Oriented, CN II-XII Intact, Normal Cognition, Normal Gait, Normal Reflexes, No Motor/Sensory Deficits Psychiatric: Normal Affect, Normal Mood Skin Exam: Warm, Dry, Intact, Normal Color, No Rash Lymphatic: No Adenopathy Course - Vital Signs Last Recorded V/S: Last Vital Signs Temp 36.3 C 04/25/18 09:50 Pulse 103 H 04/25/18 10:04 Resp 18 04/25/18 10:04 BP 117/91 H 04/25/18 10:04 Pulse Ox 100 04/25/18 10:04 - Orders/Labs/Meds Orders: Active Orders 24 hr Category Date Time Status EKG Documentation Completion [RC] URGENT Care 04/25/18 10:11 Ordered Chest 1V Frontal [CR] Urgent Exams 04/25/18 10:11 Ordered CULTURE STREP A CONFIRMATION [] Stat Lab 04/25/18 10:13 Results STREP SCRN A RAPID W CULT CONF [RM] Stat Lab 04/25/18 10:11 Ordered UA W/MICROSCOPIC [URIN] Urgent Lab 04/25/18 10:58 Results Labs: Laboratory Tests 04/25/18 04/25/18 04/25/18 Range/Units 10:20 10:20 10:58 WBC 4.8 L (5.0-10.0) 10^3/uL RBC 4.13 L (4.6-6.2) 10^6/uL Hgb 10.2 L (14.0-18.0) g/dL Hct 31.6 L (40.0-54.0) % MCV 76.5 L (80-100) fL MCH 24.7 L (27.0-34.0) pg MCHC 32.3 L (33.0-35.0) g/dL Plt Count 137 L (150-450) 10^3/uL Neut % (Auto) 72.7 (42.2-75.2) % Lymph % (Auto) 14.7 L (20.5-50.1) % Villalba % (Auto) 7.9 (2-8) % Eos % (Auto) 3.7 H (1.0-3.0) % Baso % (Auto) 1.0 (0.0-1.0) % Sodium 132 L (135-145) mmol/L Potassium 4.1 (3.6-5.0) mmol/L Chloride 100 L (101-111) mmol/L Carbon Dioxide 21.0 (21.0-31.0) mmol/L Anion Gap 15.1 BUN 18 (7-18) mg/dL Creatinine 0.8 (0.6-1.3) mg/dL Est Cr Clr Drug Dosing 109.24 mL/min Estimated GFR (MDRD) > 60 BUN/Creatinine Ratio 22.50 Glucose 89 (74-105) mg/dL Calcium 8.6 (8.4-10.2) mg/dl Total Bilirubin 3.1 H (0.2-1.0) mg/dL AST 33 (10-42) IU/L ALT 14 (10-60) IU/L Alkaline Phosphatase 89 (42-121) IU/L Troponin I 0.03 H* (0.00-0.02) ng/ml B-Natriuretic Peptide 2890 H (0-100) pg/ml Total Protein 6.8 (6.7-8.2) g/dl Albumin 3.3 (3.2-5.5) g/dl Globulin 3.5 Albumin/Globulin Ratio 0.94 Urine Color Yellow (YELLOW) Urine Appearance Slightly cloudy (CLEAR) Urine pH 6.0 (5.0-9.0) Ur Specific [place] >= 1.030 (1.005-1.030) Urine Protein >=300 H (NEGATIVE) Urine Glucose (UA) Negative (NEGATIVE) Urine Ketones 15 H (NEGATIVE) Urine Occult Blood Trace-intact H (NEGATIVE) Urine Nitrite Negative (NEGATIVE) Urine Bilirubin Small H (NEGATIVE) Urine Urobilinogen 1.0 (0.2-1.0) mg/dL Ur Leukocyte Esterase Negative (NEGATIVE) Urine Opiates Screen (NEGATIVE) Ur Oxycodone Screen (NEGATIVE) Urine Methadone Screen (NEGATIVE) Ur Barbiturates Screen (NEGATIVE) U Tricyclic Antidepress (NEGATIVE) Ur Phencyclidine Scrn (NEGATIVE) Ur Amphetamine Screen (NEGATIVE) U Methamphetamines Scrn (NEGATIVE) Urine MDMA Screen (NEGATIVE) U Benzodiazepines Scrn (NEGATIVE) Urine Cocaine Screen (NEGATIVE) U Marijuana (THC) Screen (NEGATIVE) 04/25/18 Range/Units 10:58 WBC (5.0-10.0) 10^3/uL RBC (4.6-6.2) 10^6/uL Hgb (14.0-18.0) g/dL Hct (40.0-54.0) % MCV (80-100) fL MCH (27.0-34.0) pg MCHC (33.0-35.0) g/dL Plt Count (150-450) 10^3/uL Neut % (Auto) (42.2-75.2) % Lymph % (Auto) (20.5-50.1) % Villalba % (Auto) (2-8) % Eos % (Auto) (1.0-3.0) % Baso % (Auto) (0.0-1.0) % Sodium (135-145) mmol/L Potassium (3.6-5.0) mmol/L Chloride (101-111) mmol/L Carbon Dioxide (21.0-31.0) mmol/L Anion Gap BUN (7-18) mg/dL Creatinine (0.6-1.3) mg/dL Est Cr Clr Drug Dosing mL/min Estimated GFR (MDRD) BUN/Creatinine Ratio Glucose (74-105) mg/dL Calcium (8.4-10.2) mg/dl Total Bilirubin (0.2-1.0) mg/dL AST (10-42) IU/L ALT (10-60) IU/L Alkaline Phosphatase (42-121) IU/L Troponin I (0.00-0.02) ng/ml B-Natriuretic Peptide (0-100) pg/ml Total Protein (6.7-8.2) g/dl Albumin (3.2-5.5) g/dl Globulin Albumin/Globulin Ratio Urine Color (YELLOW) Urine Appearance (CLEAR) Urine pH (5.0-9.0) Ur Specific [place] (1.005-1.030) Urine Protein (NEGATIVE) Urine Glucose (UA) (NEGATIVE) Urine Ketones (NEGATIVE) Urine Occult Blood (NEGATIVE) Urine Nitrite (NEGATIVE) Urine Bilirubin (NEGATIVE) Urine Urobilinogen (0.2-1.0) mg/dL Ur Leukocyte Esterase (NEGATIVE) Urine Opiates Screen Negative (NEGATIVE) Ur Oxycodone Screen Positive H (NEGATIVE) Urine Methadone Screen Negative (NEGATIVE) Ur Barbiturates Screen Negative (NEGATIVE) U Tricyclic Antidepress Negative (NEGATIVE) Ur Phencyclidine Scrn Negative (NEGATIVE) Ur Amphetamine Screen Negative (NEGATIVE) U Methamphetamines Scrn Negative (NEGATIVE) Urine MDMA Screen Negative (NEGATIVE) U Benzodiazepines Scrn Positive H (NEGATIVE) Urine Cocaine Screen Negative (NEGATIVE) U Marijuana (THC) Screen Negative (NEGATIVE) Meds: Medications Discontinued Medications Generic Name Dose Route Start Last Admin Trade Name Walter PRN Reason Stop Dose Admin Ondansetron HCl 4 mg 04/25/18 11:11 Zofran Odt PO 04/25/18 11:12 ONETIME ONE Departure - Departure Time of Disposition: 11:14 Disposition: Home, Self-Care 01 Condition: Fair Clinical Impression: Gastroenteritis - Discharge Information *PRESCRIPTION DRUG MONITORING PROGRAM REVIEWED*: Not Applicable *COPY OF PRESCRIPTION DRUG MONITORING REPORT IN PATIENT NIMA: Not Applicable Instructions: Viral Gastroenteritis, Adult, [id number] Referrals: PCP,None [Primary Care Provider] - Forms: ED Department Discharge Care Plan Goals: The patient was advised of the examination, lab and EKG results during the visit. The patient was given an oral dose of Zofran while in the ED. The patient was encouraged to stick to a BRAT diet (bananas, rice, applesauce and toast) with small frequent sips of water over then next 48 hours. The patient should continue with his current medications as prescribed. If the patient has any additional symptoms or concerns, the patient should either visit his primary care facility or return to the emergency department. - My Orders Last 24 Hours: My Active Orders 04/25/18 10:11 EKG Documentation Completion [RC] URGENT Chest 1V Frontal [CR] Urgent STREP SCRN A RAPID W CULT CONF [RM] Stat 04/25/18 10:13 CULTURE STREP A CONFIRMATION [RM] Stat 04/25/18 10:58 UA W/MICROSCOPIC [URIN] Urgent - Assessment/Plan Last 24 Hours: My Active Orders 04/25/18 10:11 EKG Documentation Completion [RC] URGENT Chest 1V Frontal [CR] Urgent STREP SCRN A RAPID W CULT CONF [RM] Stat 04/25/18 10:13 CULTURE STREP A CONFIRMATION [RM] Stat 04/25/18 10:58 UA W/MICROSCOPIC [URIN] Urgent
[2018-04-25 10:48] LABS: ANION GAP 15.1; CHLORIDE,CL 100 mmol/L (101-111); SODIUM,NA 132 mmol/L (135-145)
[2018-04-25] MEDS ORDERED: Ondansetron 4 MG Tab.DIS PO ONE (11:11)
== END 2018-04-25 11:19 | disposition home or self-care (01) ==
LOC: DL.ED 09:35
DX: K52.9 Noninfective gastroenteritis and colitis, unspecified (principal); I11.0 Hypertensive heart disease with heart failure; I50.9 Heart failure, unspecified; F17.210 Nicotine dependence, cigarettes, uncomplicated; F41.9 Anxiety disorder, unspecified; F32.9 Major depressive disorder, single episode, unspecified; Z79.899 Other long term (current) drug therapy
CPT/HCPCS: 36415; 71045; 80053; 80305-QW; 81001; 83880; 84484; 85025; 87081; 87430; 87804; 93005; 99284; A9270-GY

== ENCOUNTER 2018-04-26 12:15 | Emergency (ER) | payer MEDICARE, MEDICAID ==
--- NOTE | 2018-04-26 13:36 | EDM.PDOC ---
ED HPI GENERAL MEDICAL PROBLEM - General Chief Complaint: Abdominal Pain Stated Complaint: UNKNOWN Time Seen by Provider: 04/26/18 13:30 Source of Information: Reports: Patient History Limitations: Reports: No Limitations - History of Present Illness INITIAL COMMENTS - FREE TEXT/NARRATIVE: This 53 yo male patient was brought to the ED by [facility] due to lower abdominal pain. The patient reports he was seen in the [facility] this morning, but could not pick up worker his medications. The patient reports after he got home, the [facility] nurse came to his house ([place]), listened to his lungs and told him to come to the ED. The patient was seen in the ED with similar symptoms yesterday. The patient reports he is currently in the process of moving and has fallen 2 times while attempting to move his possessions. The patient reports generalized weakness and tiredness. The patient reports his entire right side is sore from the fall, but the patient was able to walk into the ED. Duration: Day(s):, Constant Location: Reports: Generalized Quality: Reports: Other Severity: Moderate Improves with: Reports: None Worsens with: Reports: None Associated Symptoms: Reports: No Other Symptoms Abdomen Pain Score (Numeric/FACES): 8 - Related Data Allergies Allergy/AdvReac Type Severity Reaction Status Date / Time No Known Allergies Allergy Verified 04/26/18 13:55 Home Meds: Home Meds Carvedilol 6.25 mg PO BID 60 Days tablet 12/21/17 [Rx] Digoxin 0.25 mg PO DAILY #30 tablet 12/21/17 [Rx] Fluticasone/Salmeterol [Advair 250-50 Diskus] 1 puff INH Q12H #1 disk.w.dev [Rx] Furosemide [Lasix] 60 mg PO BID #60 tablet 12/21/17 [Rx] Pantoprazole Sodium [Protonix] 40 mg PO DAILY #30 tablet.dr 12/21/17 [Rx] Potassium Chloride 40 meq PO BID 60 Days tablet.er 12/21/17 [Rx] Spironolactone [Aldactone] 25 mg PO DAILY #30 tablet 12/21/17 [Rx] Benzonatate [Tessalon Perle] 100 mg PO TID PRN 01/29/18 [History] FLUoxetine [PROzac] 20 mg PO DAILY 01/29/18 [History] ALPRAZolam [Alprazolam] 0.25 mg PO BID 02/13/18 [History] Melatonin 1 tab PO DAILY 02/21/18 [History] Albuterol [Ventolin HFA] 1 puff INH Q6HR PRN 03/07/18 [History] Calcium Carbonate [Tums] 500 mg PO TID PRN 03/07/18 [History] Docusate Sodium [Colace] 100 mg PO DAILY PRN cap 03/08/18 [Rx] Past Medical History - Past Health History Medical/Surgical History: Denies Medical/Surgical History HEENT History: Reports: None Cardiovascular History: Reports: Blood Clots/VTE/DVT, Cardiomyopathy, Heart Failure, Hypertension, SOB on Exertion Respiratory History: Reports: SOB Gastrointestinal History: Reports: Cirrhosis, Gastritis, GERD Genitourinary History: Reports: Other (See Below) Other Genitourinary History: liver issues r/t ETOH Musculoskeletal History: Reports: Arthritis, Other (See Below) Other Musculoskeletal History: torn left and right upper arm tendon. missed surgery 03/2017 Neurological History: Reports: None Psychiatric History: Reports: Addiction, Anxiety, Depression, Panic Attack Other Psychiatric History: addiction treatment January 2018 Endocrine/Metabolic History: Reports: None Hematologic History: Reports: None Immunologic History: Reports: None Oncologic (Cancer) History: Reports: None Dermatologic History: Reports: None - Infectious Disease History Infectious Disease History: Reports: None - Past Surgical History Head Surgeries/Procedures: Reports: None Cardiovascular Surgical History: Reports: AICD, Percutaneous Transluminal Angioplasty Respiratory Surgical History: Reports: None GI Surgical History: Reports: None Male Surgical History: Reports: None Neurological Surgical History: Reports: None Musculoskeletal Surgical History: Reports: None Social & Family History - Family History Family Medical History: Unobtainable Cardiac: Reports: Hypertension Other Cardiac Family History: Dad and paternal grandmother have hypertension. Respiratory: Reports: Asthma Other Respiratory Family Hisory: Mom and dad have asthma. Endocrine/Metabolic: Reports: Diabetes, Type I Other Endocrine/Metabolic Family History: Dad and paternal grandmother have type I diabetes. - Caffeine Use Caffeine Use: Reports: None Other Caffeine Use: 12. cups/day - Living Situation & Occupation Living situation: Reports: Alone Occupation: Unemployed ED ROS GENERAL - Review of Systems Review Of Systems: ROS reveals no pertinent complaints other than HPI. ED EXAM, GENERAL - Physical Exam Exam: See Below Exam Limited By: No Limitations General Appearance: Alert, WD/WN, Mild Distress Eye Exam: Bilateral Eye: EOMI, Normal Inspection, PERRL Ears: Normal External Exam, Normal Canal, Hearing Grossly Normal, Normal TMs Nose: Normal Inspection, Normal Mucosa, No Blood Throat/Mouth: Normal Inspection, Normal Lips, Normal Teeth, Normal Gums, Normal Oropharynx, Normal Voice, No Airway Compromise Head: Atraumatic, Normocephalic Neck: Normal Inspection, Supple, Non-Tender, Full Range of Motion Respiratory/Chest: No Respiratory Distress, Rhonchi (diffuse) Cardiovascular: Normal Peripheral Pulses, Regular Rate, Rhythm, No Edema, No Gallop, No JVD, No Murmur, No Rub GI/Abdominal: Tender (diffuse tenderness) (Male) Exam: Deferred Rectal (Males) Exam: Deferred Back Exam: Normal Inspection, Full Range of Motion, NT Extremities: Normal Inspection, Normal Range of Motion, Non-Tender, Normal Capillary Refill, No Pedal Edema Neurological: Alert, Oriented, CN II-XII Intact, Normal Cognition, Normal Gait, Normal Reflexes, No Motor/Sensory Deficits Psychiatric: Normal Affect, Normal Mood Skin Exam: Warm, Dry, Intact, Normal Color, No Rash Lymphatic: No Adenopathy Course - Vital Signs Last Recorded V/S: Last Vital Signs Temp 35.9 C 04/26/18 13:42 Pulse 77 04/26/18 13:42 Resp 16 04/26/18 13:42 BP 115/64 04/26/18 13:42 Pulse Ox 96 04/26/18 13:42 - Orders/Labs/Meds Orders: Active Orders 24 hr Category Date Time Status CULTURE BLOOD [BC] Stat Lab 04/26/18 13:37 Received Labs: Laboratory Tests 04/26/18 04/26/18 04/26/18 Range/Units 13:37 13:37 13:37 WBC 5.5 (5.0-10.0) 10^3/uL RBC 4.47 L (4.6-6.2) 10^6/uL Hgb 11.1 L (14.0-18.0) g/dL Hct 34.5 L (40.0-54.0) % MCV 77.2 L (80-100) fL MCH 24.8 L (27.0-34.0) pg MCHC 32.2 L (33.0-35.0) g/dL Plt Count 174 (150-450) 10^3/uL Neut % (Auto) 77.5 H (42.2-75.2) % Lymph % (Auto) 14.9 L (20.5-50.1) % [place] % (Auto) 6.4 (2-8) % Eos % (Auto) 0.7 L (1.0-3.0) % Baso % (Auto) 0.5 (0.0-1.0) % Sodium 132 L (135-145) mmol/L Potassium 3.9 (3.6-5.0) mmol/L Chloride 99 L (101-111) mmol/L Carbon Dioxide 19.0 L (21.0-31.0) mmol/L Anion Gap 17.9 BUN 19 H (7-18) mg/dL Creatinine 0.9 (0.6-1.3) mg/dL Est Cr Clr Drug Dosing 97.10 mL/min Estimated GFR (MDRD) > 60 BUN/Creatinine Ratio 21.11 Glucose 147 H (74-105) mg/dL Lactic Acid 4.0 H (0.5-2.2) mmol/L Calcium 8.7 (8.4-10.2) mg/dl Total Bilirubin 3.9 H (0.2-1.0) mg/dL AST 45 H (10-42) IU/L ALT 14 (10-60) IU/L Alkaline Phosphatase 77 (42-121) IU/L B-Natriuretic Peptide (0-100) pg/ml Total Protein 7.3 (6.7-8.2) g/dl Albumin 3.4 (3.2-5.5) g/dl Globulin 3.9 Albumin/Globulin Ratio 0.87 Urine Color (YELLOW) Urine Appearance (CLEAR) Urine pH (5.0-9.0) Ur Specific [place] (1.005-1.030) Urine Protein (NEGATIVE) Urine Glucose (UA) (NEGATIVE) Urine Ketones (NEGATIVE) Urine Occult Blood (NEGATIVE) Urine Nitrite (NEGATIVE) Urine Bilirubin (NEGATIVE) Urine Urobilinogen (0.2-1.0) mg/dL Ur Leukocyte Esterase (NEGATIVE) Urine RBC /HPF Urine WBC (0-5/HPF) /HPF Ur Epithelial Cells /HPF Amorphous Sediment (0/HPF) /HPF Urine Bacteria (0-FEW/HPF) /HPF Hyaline Casts /LPF Granular Casts /LPF Fine Granular Casts (0/LPF) /LPF Urine Mucus /LPF Urine Other Urine Opiates Screen (NEGATIVE) Ur Oxycodone Screen (NEGATIVE) Urine Methadone Screen (NEGATIVE) Ur Barbiturates Screen (NEGATIVE) U Tricyclic Antidepress (NEGATIVE) Ur Phencyclidine Scrn (NEGATIVE) Ur Amphetamine Screen (NEGATIVE) U Methamphetamines Scrn (NEGATIVE) Urine MDMA Screen (NEGATIVE) U Benzodiazepines Scrn (NEGATIVE) Urine Cocaine Screen (NEGATIVE) U Marijuana (THC) Screen (NEGATIVE) 04/26/18 04/26/18 04/26/18 Range/Units 13:37 14:29 14:29 WBC (5.0-10.0) 10^3/uL RBC (4.6-6.2) 10^6/uL Hgb (14.0-18.0) g/dL Hct (40.0-54.0) % MCV (80-100) fL MCH (27.0-34.0) pg MCHC (33.0-35.0) g/dL Plt Count (150-450) 10^3/uL Neut % (Auto) (42.2-75.2) % Lymph % (Auto) (20.5-50.1) % [place] % (Auto) (2-8) % Eos % (Auto) (1.0-3.0) % Baso % (Auto) (0.0-1.0) % Sodium (135-145) mmol/L Potassium (3.6-5.0) mmol/L Chloride (101-111) mmol/L Carbon Dioxide (21.0-31.0) mmol/L Anion Gap BUN (7-18) mg/dL Creatinine (0.6-1.3) mg/dL Est Cr Clr Drug Dosing mL/min Estimated GFR (MDRD) BUN/Creatinine Ratio Glucose (74-105) mg/dL Lactic Acid (0.5-2.2) mmol/L Calcium (8.4-10.2) mg/dl Total Bilirubin (0.2-1.0) mg/dL AST (10-42) IU/L ALT (10-60) IU/L Alkaline Phosphatase (42-121) IU/L B-Natriuretic Peptide 2910 H (0-100) pg/ml Total Protein (6.7-8.2) g/dl Albumin (3.2-5.5) g/dl Globulin Albumin/Globulin Ratio Urine Color Dark yellow (YELLOW) Urine Appearance Slightly cloudy (CLEAR) Urine pH 5.5 (5.0-9.0) Ur Specific [place] >= 1.030 (1.005-1.030) Urine Protein 100 H (NEGATIVE) Urine Glucose (UA) Negative (NEGATIVE) Urine Ketones Negative (NEGATIVE) Urine Occult Blood Negative (NEGATIVE) Urine Nitrite Negative (NEGATIVE) Urine Bilirubin Moderate H (NEGATIVE) Urine Urobilinogen 2.0 H (0.2-1.0) mg/dL Ur Leukocyte Esterase Negative (NEGATIVE) Urine RBC 0-5 /HPF Urine WBC 0-5 (0-5/HPF) /HPF Ur Epithelial Cells Rare /HPF Amorphous Sediment Occasional (0/HPF) /HPF Urine Bacteria Rare (0-FEW/HPF) /HPF Hyaline Casts Few H /LPF Granular Casts Few /LPF Fine Granular Casts Moderate H (0/LPF) /LPF Urine Mucus Occasional /LPF Urine Other Urine Opiates Screen Negative (NEGATIVE) Ur Oxycodone Screen Positive H (NEGATIVE) Urine Methadone Screen Negative (NEGATIVE) Ur Barbiturates Screen Negative (NEGATIVE) U Tricyclic Antidepress Negative (NEGATIVE) Ur Phencyclidine Scrn Negative (NEGATIVE) Ur Amphetamine Screen Negative (NEGATIVE) U Methamphetamines Scrn Negative (NEGATIVE) Urine MDMA Screen Negative (NEGATIVE) U Benzodiazepines Scrn Positive H (NEGATIVE) Urine Cocaine Screen Negative (NEGATIVE) U Marijuana (THC) Screen Negative (NEGATIVE) Meds: Medications Discontinued Medications Generic Name Dose Route Start Last Admin Trade Name Freq PRN Reason Stop Dose Admin Metoclopramide HCl 10 mg 04/26/18 14:16 04/26/18 14:35 Reglan IM 04/26/18 14:17 10 mg ONETIME ONE Administration Departure - Departure Time of Disposition: 14:58 Disposition: Home, Self-Care 01 Condition: Fair Clinical Impression: Abdominal pain Qualifiers: Abdominal location: right upper quadrant Qualified Code(s): R10.11 - Right upper quadrant pain - Discharge Information *PRESCRIPTION DRUG MONITORING PROGRAM REVIEWED*: Not Applicable *COPY OF PRESCRIPTION DRUG MONITORING REPORT IN PATIENT NIMA: Not Applicable Instructions: Abdominal Pain, Adult, [id number] Forms: ED Department Discharge Care Plan Goals: The patient was advised of the examination, lab and x-ray result during the visit. The patient was encouraged to take his medications as prescribed by his primary care facility. If the patient has any additional symptoms or concerns, the patient should either visit his primary care facility or return to the emergency department. - My Orders Last 24 Hours: My Active Orders 04/26/18 13:37 CULTURE BLOOD [BC] Stat - Assessment/Plan Last 24 Hours: My Active Orders 04/26/18 13:37 CULTURE BLOOD [BC] Stat
--- NOTE | 2018-04-26 13:51 | CR ---
Clinical history: 53-year-old male shortness of breath. Interpretation: No new signs of heart failure, lung mass or focal lobar pneumonia when compared directly to and 25 April. Chronic markedly abnormal enlarged cardiac silhouette (cardiac pacemaker leads intact), unchanged. No effusions. No pneumothorax.
[2018-04-26 13:54] VITALS: BP 115/64
[2018-04-26 14:09] LABS: ANION GAP 17.9; CHLORIDE,CL 99 mmol/L (101-111); SODIUM,NA 132 mmol/L (135-145)
[2018-04-26] MEDS ORDERED: Metoclopramide 10 MG/2 ML SDV IM ONE (14:16)
== END 2018-04-26 15:01 | disposition home or self-care (01) ==
LOC: DL.ED 12:15
DX: R10.11 Right upper quadrant pain (principal); I11.0 Hypertensive heart disease with heart failure; I50.9 Heart failure, unspecified; Z79.899 Other long term (current) drug therapy
CPT/HCPCS: 36415; 71045; 80053; 80305; 81001; 83605; 83880; 85025; 87040; 96372; 99284; J2765; 99283

== ENCOUNTER 2018-04-30 04:27 | Emergency (ER) | payer MEDICARE, MEDICAID ==
[2018-04-30 04:34] VITALS: BP 113/84
--- NOTE | 2018-04-30 04:53 | EDM.PDOC ---
ED HPI GENERAL MEDICAL PROBLEM - General Chief Complaint: General Stated Complaint: AMBULANCE-UNKNOWN Time Seen by Provider: 04/30/18 04:40 Source of Information: Reports: Patient History Limitations: Reports: No Limitations - History of Present Illness INITIAL COMMENTS - FREE TEXT/NARRATIVE: ED with c/o pain to butt and sore on it for one week worse past 2 days, unable to sit, question if fever, Still having stomach pain, No vomiting tonight. Reports taking all of his medication. History vague, then stated his medicaide had not "kicked in" so couldn't get his medications, then taking all of them or two of them. Denies drug use, no cough. Feeling more short of breath past 2 days Abdomen Pain Score (Numeric/FACES): 7 Buttock Pain Score (Numeric/FACES): 7 - Related Data Allergies Allergy/AdvReac Type Severity Reaction Status Date / Time No Known Allergies Allergy Verified 04/30/18 04:34 Home Meds: Home Meds Carvedilol 6.25 mg PO BID 60 Days tablet 12/21/17 [Rx] Digoxin 0.25 mg PO DAILY #30 tablet 12/21/17 [Rx] Fluticasone/Salmeterol [Advair 250-50 Diskus] 1 puff INH Q12H #1 disk.w.dev [Rx] Furosemide [Lasix] 60 mg PO BID #60 tablet 12/21/17 [Rx] Pantoprazole Sodium [Protonix] 40 mg PO DAILY #30 tablet.dr 12/21/17 [Rx] Potassium Chloride 40 meq PO BID 60 Days tablet.er 12/21/17 [Rx] Spironolactone [Aldactone] 25 mg PO DAILY #30 tablet 12/21/17 [Rx] Benzonatate [Tessalon Perle] 100 mg PO TID PRN 01/29/18 [History] FLUoxetine [PROzac] 20 mg PO DAILY 01/29/18 [History] ALPRAZolam [Alprazolam] 0.25 mg PO BID 02/13/18 [History] Melatonin 1 tab PO DAILY 02/21/18 [History] Albuterol [Ventolin HFA] 1 puff INH Q6HR PRN 03/07/18 [History] Calcium Carbonate [Tums] 500 mg PO TID PRN 03/07/18 [History] Docusate Sodium [Colace] 100 mg PO DAILY PRN cap 03/08/18 [Rx] Dicyclomine [Bentyl] 10 mg PO DAILY 04/30/18 [History] oxyCODONE 5 mg PO BID 04/30/18 [History] Past Medical History - Past Health History Medical/Surgical History: Denies Medical/Surgical History HEENT History: Reports: None Cardiovascular History: Reports: Blood Clots/VTE/DVT, Cardiomyopathy, Heart Failure, Hypertension, SOB on Exertion Respiratory History: Reports: SOB Gastrointestinal History: Reports: Cirrhosis, Gastritis, GERD Genitourinary History: Reports: Other (See Below) Other Genitourinary History: liver issues r/t ETOH Musculoskeletal History: Reports: Arthritis, Other (See Below) Other Musculoskeletal History: torn left and right upper arm tendon. missed surgery 03/2017 Neurological History: Reports: None Psychiatric History: Reports: Addiction, Anxiety, Depression, Panic Attack Other Psychiatric History: addiction treatment January 2018 Endocrine/Metabolic History: Reports: None Hematologic History: Reports: None Immunologic History: Reports: None Oncologic (Cancer) History: Reports: None Dermatologic History: Reports: None - Infectious Disease History Infectious Disease History: Reports: None - Past Surgical History Head Surgeries/Procedures: Reports: None Cardiovascular Surgical History: Reports: AICD, Percutaneous Transluminal Angioplasty Respiratory Surgical History: Reports: None GI Surgical History: Reports: None Male Surgical History: Reports: None Neurological Surgical History: Reports: None Musculoskeletal Surgical History: Reports: None Social & Family History - Family History Family Medical History: Unobtainable Cardiac: Reports: Hypertension Other Cardiac Family History: Dad and paternal grandmother have hypertension. Respiratory: Reports: Asthma Other Respiratory Family Hisory: Mom and dad have asthma. Endocrine/Metabolic: Reports: Diabetes, Type I Other Endocrine/Metabolic Family History: Dad and paternal grandmother have type I diabetes. - Tobacco Use Smoking Status *Q: Current Some Day Smoker Years of Tobacco use: 40 Packs/Tins Daily: 0.1 Second Hand Smoke Exposure: Yes - Caffeine Use Caffeine Use: Reports: Coffee, Soda, Tea Other Caffeine Use: 12. cups/day - Recreational Drug Use Recreational Drug Use: Yes Drug Use in Last 12 Months: Yes Recreational Drug Type: Reports: Methamphetamine Recreational Drug Use Frequency: Not Used In Over 1 Month - Living Situation & Occupation Living situation: Reports: Alone Occupation: Unemployed ED ROS GENERAL - Review of Systems Review Of Systems: See Below Constitutional: Reports: Weakness, Fatigue HEENT: Reports: No Symptoms Respiratory: Reports: Shortness of Breath Cardiovascular: Reports: Dyspnea on Exertion, Edema, Orthopnea Endocrine: Reports: Fatigue GI/Abdominal: Reports: Diarrhea, Stool Incontinence : Reports: No Symptoms Musculoskeletal: Reports: No Symptoms Skin: Reports: Wound (buttock) ED EXAM, GENERAL - Physical Exam Exam: See Below Exam Limited By: No Limitations General Appearance: Alert, Mild Distress, Other (face puffier than per usual) Eye Exam: Bilateral Eye: EOMI Ears: Normal External Exam, Normal TMs Nose: Normal Inspection, Normal Mucosa Throat/Mouth: Normal Inspection, Normal Lips Head: Atraumatic, Normocephalic Neck: Normal Inspection, Full Range of Motion Respiratory/Chest: Decreased Breath Sounds. No: Respiratory Distress, Accessory Muscle Use Cardiovascular: Normal Peripheral Pulses, Regular Rate, Rhythm, Other (paced) GI/Abdominal: Normal Bowel Sounds, Other (incontinent brown stool) (Male) Exam: Scrotal Swelling Rectal (Males) Exam: Heme - Stool Back Exam: Full Range of Motion Extremities: Normal Range of Motion Neurological: Alert, Oriented, Normal Cognition Skin Exam: Warm, Dry, Wound/Incision (1.5 open area left mid buttock 15cm indurated firm area surrounding extending around to scrotum.). No: Intact Course - Vital Signs Last Recorded V/S: Last Vital Signs Temp 97.2 F 04/30/18 04:33 Pulse 102 H 04/30/18 04:33 Resp 23 H 04/30/18 04:33 BP 113/84 04/30/18 04:33 Pulse Ox 100 04/30/18 04:33 - Orders/Labs/Meds Labs: Laboratory Tests 04/30/18 04/30/18 04/30/18 Range/Units 04:55 04:55 04:55 WBC 9.4 (5.0-10.0) 10^3/uL RBC 4.41 L (4.6-6.2) 10^6/uL Hgb 10.9 L (14.0-18.0) g/dL Hct 33.6 L (40.0-54.0) % MCV 76.2 L (80-100) fL MCH 24.7 L (27.0-34.0) pg MCHC 32.4 L (33.0-35.0) g/dL Plt Count 222 (150-450) 10^3/uL Neut % (Auto) 83.0 H (42.2-75.2) % Lymph % (Auto) 7.2 L (20.5-50.1) % Carter % (Auto) 9.4 H (2-8) % Eos % (Auto) 0.2 L (1.0-3.0) % Baso % (Auto) 0.2 (0.0-1.0) % PT 17.5 H D (9.0-12.0) SEC INR 1.8 H (0.9-1.2) Sodium 130 L (135-145) mmol/L Potassium 5.0 (3.6-5.0) mmol/L Chloride 96 L (101-111) mmol/L Carbon Dioxide 22.0 (21.0-31.0) mmol/L Anion Gap 17.0 BUN 29 H (7-18) mg/dL Creatinine 1.0 (0.6-1.3) mg/dL Est Cr Clr Drug Dosing 87.39 mL/min Estimated GFR (MDRD) > 60 BUN/Creatinine Ratio 29.00 Glucose 96 (74-105) mg/dL Lactic Acid (0.5-2.2) mmol/L Calcium 8.9 (8.4-10.2) mg/dl Magnesium 1.8 (1.8-2.5) mg/dL Total Bilirubin 4.7 H (0.2-1.0) mg/dL AST 54 H (10-42) IU/L ALT 20 (10-60) IU/L Alkaline Phosphatase 81 (42-121) IU/L Troponin I 0.04 H* (0.00-0.02) ng/ml B-Natriuretic Peptide 4740 H (0-100) pg/ml Total Protein 7.5 (6.7-8.2) g/dl Albumin 3.5 (3.2-5.5) g/dl Globulin 4.0 Albumin/Globulin Ratio 0.88 Amylase 31 (28-100) U/L Lipase 20 L (22-51) U/L Digoxin (0-2.5) ng/ml 02/22/19 02/22/19 Range/Units 04:55 04:55 WBC (5.0-10.0) 10^3/uL RBC (4.6-6.2) 10^6/uL Hgb (14.0-18.0) g/dL Hct (40.0-54.0) % MCV (80-100) fL MCH (27.0-34.0) pg MCHC (33.0-35.0) g/dL Plt Count (150-450) 10^3/uL Neut % (Auto) (42.2-75.2) % Lymph % (Auto) (20.5-50.1) % Carter % (Auto) (2-8) % Eos % (Auto) (1.0-3.0) % Baso % (Auto) (0.0-1.0) % PT (9.0-12.0) SEC INR (0.9-1.2) Sodium (135-145) mmol/L Potassium (3.6-5.0) mmol/L Chloride (101-111) mmol/L Carbon Dioxide (21.0-31.0) mmol/L Anion Gap BUN (7-18) mg/dL Creatinine (0.6-1.3) mg/dL Est Cr Clr Drug Dosing mL/min Estimated GFR (MDRD) BUN/Creatinine Ratio Glucose (74-105) mg/dL Lactic Acid 3.2 H (0.5-2.2) mmol/L Calcium (8.4-10.2) mg/dl Magnesium (1.8-2.5) mg/dL Total Bilirubin (0.2-1.0) mg/dL AST (10-42) IU/L ALT (10-60) IU/L Alkaline Phosphatase (42-121) IU/L Troponin I (0.00-0.02) ng/ml B-Natriuretic Peptide (0-100) pg/ml Total Protein (6.7-8.2) g/dl Albumin (3.2-5.5) g/dl Globulin Albumin/Globulin Ratio Amylase (28-100) U/L Lipase (22-51) U/L Digoxin 1.2 (0-2.5) ng/ml Meds: Medications Discontinued Medications Generic Name Dose Route Start Last Admin Trade Name Freq PRN Reason Stop Dose Admin Furosemide 40 mg 04/30/18 05:53 04/30/18 06:05 Lasix IVPUSH 04/30/18 05:54 40 mg NOW ONE Administration Piperacillin Sod/Tazobactam 100 mls @ 200 mls/hr 04/30/18 05:54 04/30/18 06: 07 Sod 3.375 gm/ Sodium Chloride IV 04/30/18 06:23 Not Given ONETIME ONE Vancomycin HCl 1,250 mg/ 100 mls @ 100 mls/hr 04/30/18 06:13 04/30/18 06:33 Sodium Chloride IV 04/30/18 07:12 100 mls/hr ONETIME ONE Administration Morphine Sulfate 2 mg 04/30/18 05:23 04/30/18 05:35 Morphine IVPUSH 04/30/18 05:24 2 mg ONETIME ONE Administration Ondansetron HCl 4 mg 04/30/18 05:17 04/30/18 05:28 Zofran IV 04/30/18 05:18 4 mg ONETIME ONE Administration - Radiology Interpretation Free Text/Narrative:: Name: MANNIE MEREDITH Age: 53Years M Date: 04/30/2018 SSN: -- : [id number] Study: XR CHEST 1 VIEW Requesting Physician: PREET WALTON Images: 1 Addl Studies: Provided Clinical History: Contrast: Contrast Medium: Contrast Amount: Contrast Method: Page 1 of 2 EXAM: XR Chest, 1 View EXAM DATE/TIME: 04/30/2018 5:35 AM CLINICAL HISTORY: 53 years old, male; Signs and symptoms; Dyspnea; Prior surgery; Surgery date: 6 + months; Surgery type: Pacemaker TECHNIQUE: XR of the chest, 1 view. COMPARISON: CR Chest 1V Frontal 04/25/2018 10:28 AM FINDINGS: Tubes, catheters and devices: Stable placement of a pacemaker via the left subclavian vein. Lungs: See Heart/mediastinum Finding. Pleural space: Unremarkable. No pleural effusion. No pneumothorax. Heart/Mediastinum: Cardiac silhouette remains prominent. There is prominence and indistinctness of the central pulmonary vasculature and haziness present in the lower hemithoraces, findings compatible with CHF. Bones/joints: Unremarkable. IMPRESSION: Findings compatible with stable CHF. Thank you for allowing us to participate in the care of your patient. - Re-Assessments/Exams Free Text/Narrative Re-Assessment/Exam: 04/30/18 06:[address] Conroy, [facility] accepting of patient. 04/30/18 06:26 Transfer via [facility] in stable condition Departure - Departure Time of Disposition: 06:18 Disposition: DC/Tfer to Acute Hospital 02 Condition: Undetermined Clinical Impression: CHF, Congestive heart failure, Noncompliance with medication regimen Abdominal pain Qualifiers: Abdominal location: generalized Qualified Code(s): R10.84 - Generalized abdominal pain Pressure ulcer of buttock Qualifiers: Pressure injury stage: stage 3 Laterality: left Qualified Code(s): L89.323 - Pressure ulcer of left buttock, stage 3 - Discharge Information Referrals: PCP,None [Ordering Only Provider] - Forms: ED Department Discharge
[2018-04-30] MEDS ORDERED: Ondansetron 4 MG/2 ML SDV IV ONE (05:17)
[2018-04-30] MEDS ORDERED: Morphine 2 MG/ML Syringe IVPUSH ONE (05:23)
[2018-04-30 05:28] LABS: CHLORIDE,CL 96 mmol/L (101-111); SODIUM,NA 130 mmol/L (135-145)
[2018-04-30] MEDS ORDERED: Furosemide 40 MG/4 ML VIAL IVPUSH ONE (05:53)
[2018-04-30] MEDS ORDERED: Piperacillin/Tazobactam 3.375 GM in Sodium Chloride 0.9% 100 ML IV ONE (05:54)
== END 2018-04-30 06:51 ==
LOC: DL.ED 04:27
DX: I11.0 Hypertensive heart disease with heart failure (principal); I50.9 Heart failure, unspecified; L89.323 Pressure ulcer of left buttock, stage 3; R10.84 Generalized abdominal pain; F41.9 Anxiety disorder, unspecified; F32.9 Major depressive disorder, single episode, unspecified; Z79.899 Other long term (current) drug therapy; Z91.19 Patient's noncompliance with other medical treatment and regimen
CPT/HCPCS: 36415; 71045; 80053; 80162; 82150; 82272; 83605; 83690; 83735; 83880; 84484; 85025; 85610; 87040; 87070; 87077; 87186; 93005; 96365; 96375; 99285; J1940; J2270; J2405; J3370; J7050